=== PATIENT | male | born 1945 | race Caucasian/White ===

== ENCOUNTER 2017-08-01 19:28 | Observation (INO) | payer MEDICARE, OTHER, SELFPAY ==
[2017-08-01 19:29] VITALS: BP 160/83; PULSE 86; RESP 16; TEMP 37.7; O2SAT 98; BMI 36.8
[2017-08-01 19:42] VITALS: BMI 33.3
--- NOTE | 2017-08-01 19:45 | XR_ITS ---
XR chest portable HISTORY: ITS.REASON: CHEST PAIN ORDERING PHYSICIAN: Galdino Hickey MD PATIENT AGE: 71 years COMPARISON: 10/06/2015 FINDINGS: The cardiomediastinal silhouette and pulmonary vascularity are within normal limits. The lungs are clear without infiltrates, suspicious nodules, or pleural effusions. No acute bony abnormalities. Stable nodular opacity left midlung possibly related to granuloma. IMPRESSION: No acute finding
[2017-08-01 20:01] LABS: Basophils % 0.4 % (0.1-2.0); Eosinophils # 0.4 K/mm3 (0.0-0.4); Eosinophils % 3.7 % (0.1-12.0); Hematocrit 42.5 % (42.0-52.0); Hemoglobin 14.7 g/dL (14.1-18.0); Lymphocytes % 34.5 K/mm3 (10-50); Mean Corpuscular HGB Conc 34.6 g/dL (31.8-35.4); Mean Corpuscular Hemoglobin 30.1 pg (27.0-31.2); Mean Platelet Volume 7.7 fl (7.4-10.4); Monocytes # 0.8 K/mm3 (0.1-1.0); Monocytes % 6.5 % (1.7-9.3); Neutrophils # 6.4 K/mm3 (1.8-7.8); Neutrophils % 54.9 % (37.0-80.0); Platelet Count 237 K/mm3 (142-424); Red Blood Count 4.88 M/mm3 (4.60-6.20); Red Cell Distribution Width 13.3 % (11.5-17.5); White Blood Count 11.7 K/mm3 (4.8-10.8)
--- NOTE | 2017-08-01 20:01 | PC.NURSE ---
EKG DONE AT 192
--- NOTE | 2017-08-01 20:05 | HMH.EDCP ---
ED Disposition Clinical Impression: Renal insufficiency Chest pain Qualifiers: Chest pain type: precordial pain Qualified Code(s): R07.2 - Precordial pain Hypertension Qualifiers: Hypertension type: unspecified Qualified Code(s): I10 - Essential (primary) hypertension Disposition: Admitted as Observation Condition on Discharge: Good Referrals: Vivienne Payton MD [Primary Care Provider] - - Critical Care Critical Care Time: No Attestation: On , the high probability of a clinically significant, sudden or life threatening deterioration of the following system(s) required my full and direct attention, intervention and personal management. The time I documented below is in addition to time spent performing reported procedures but includes the following listed in this critical care notation. Medical Decision Making - Medical Records Medical records reviewed: Yes: I reviewed the patient's medical records. Vital Signs: 08/01/17 19:29 08/01/17 20:33 Temperature 99.8 F H Temperature Source Oral Pulse Rate [Brachial] 86 98 H Respiratory Rate 16 18 Blood Pressure [Right Arm] 160/83 159/69 Blood Pressure Mean [Right Arm] 108 99 Blood Pressure Source [Right Arm] Automatic Cuff Automatic Cuff Blood Pressure Position [Right Arm] Sitting Sitting 02 Sat by Pulse Oximetry 98 98 Oxygen Delivery Method Room Air Room Air - Lab Data Lab results reviewed: Yes: I reviewed the patient's lab results. Lab Results 08/01/17 19:50: WBC 11.7 H, RBC 4.88, Hgb 14.7, Hct 42.5, MCV 87.0, MCH 30.1, MCHC 34.6, RDW 13.3, Plt Count 237, MPV 7.7, Neut % (Auto) 54.9, Lymph % (Auto) 34.5, [place] % (Auto) 6.5, Eos % (Auto) 3.7, Baso % (Auto) 0.4, Neut # (Auto) 6.4, Lymph # (Auto) 4.0, [place] # (Auto) 0.8, Eos # (Auto) 0.4, Baso # (Auto) 0.0 08/01/17 19:50: Sodium 140, Potassium 3.7, Chloride 106, Carbon Dioxide 26, Anion Gap 11.7, BUN 19 H, Creatinine 1.45 H, Estimated Creat Clear 78, Estimated GFR 48 L, Est GFR ( Amer) 58 L, Glucose 122 H, Calcium 8.6, Total Bilirubin 0.3, AST 23, ALT 32, Alkaline Phosphatase 102, Total Creatine Kinase 189 H, CK-MB (CK-2) 2.0, CK-MB (CK-2) Rel Index 1.1, Troponin I < 0.02, Total Protein 7.8, Albumin 3.8, Globulin 4.0 H, Albumin/Globulin Ratio 1.0 L Result diagrams: 08/01/17 19:50 08/01/17 19:50 Orders (Tests/Meds): ED MEDICATIONS Generic Name Dose Route Start Last Admin Trade Name Freq PRN Reason Stop Dose Admin Sodium Chloride 10 ml 08/01/17 19:44 Saline Flush 10ml Syringe IV 08/31/17 19:43 NEEDED PRN Maintain IV Site Discontinued Medications Generic Name Dose Route Start Last Admin Trade Name Freq PRN Reason Stop Dose Admin Aspirin 324 mg 08/01/17 19:44 08/01/17 19:47 Aspirin 81mg Chewable Tablet PO 08/01/17 19:45 324 mg ONCE ONE Administration Nitroglycerin 1 gm 08/01/17 20:16 08/01/17 20:21 Nitroglycerin 1 Inch Oint Udp TD 08/01/17 20:17 1 gm ONCE ONE Administration ORDERS Category Date Time Status Chest XR -- portable [XR chest portable] Stat Exams 08/01/17 19:45 Taken EKG Request [ECG Request by /Liana] Stat Y 08/01/17 19:44 Ordered - Radiology Data #1 Image Reviewed: Yes I reviewed the patient's radiology results Preliminary Findings: Normal/NAD - ECG Data Tracing #1 I reviewed this ECG and interpreted as documented below: ECG initial impression date: 08/01/17 Ischemic changes: non-specific ST-T wave changes - Physician Consults Physician Consulted: charlee Reason -: Admission - [place] Inquiry Pt receiving controlled substance: No Chest Pain HPI - General Chief Complaint: Chest Pain Stated Complaint: chest pain Time Seen by Provider: 08/01/17 20:07 Mode of Arrival: Ambulatory Source of Information: Patient, Relative, Medical Record Limitations: No Limitations Description of Symptoms (Recalled from ER Triage Doc. by RN): pain in left arm at 11:30 today, chest pain and tightness 1830 - H
--- NOTE | 2017-08-01 20:09 | ED_ITS ---
ED Disposition Clinical Impression: Renal insufficiency Chest pain Qualifiers: Chest pain type: precordial pain Qualified Code(s): R07.2 - Precordial pain Hypertension Qualifiers: Hypertension type: unspecified Qualified Code(s): I10 - Essential (primary) hypertension Disposition: Admitted as Observation Condition on Discharge: Good Referrals: Vivienne Payton MD [Primary Care Provider] - - Critical Care Critical Care Time: No Attestation: On , the high probability of a clinically significant, sudden or life threatening deterioration of the following system(s) required my full and direct attention, intervention and personal management. The time I documented below is in addition to time spent performing reported procedures but includes the following listed in this critical care notation. Medical Decision Making - Medical Records Medical records reviewed: Yes: I reviewed the patient's medical records. Vital Signs: 08/01/17 19:29 08/01/17 20:33 Temperature 99.8 F H Temperature Source Oral Pulse Rate [Brachial] 86 98 H Respiratory Rate 16 18 Blood Pressure [Right Arm] 160/83 159/69 Blood Pressure Mean [Right Arm] 108 99 Blood Pressure Source [Right Arm] Automatic Cuff Automatic Cuff Blood Pressure Position [Right Arm] Sitting Sitting 02 Sat by Pulse Oximetry 98 98 Oxygen Delivery Method Room Air Room Air - Lab Data Lab results reviewed: Yes: I reviewed the patient's lab results. Lab Results 08/01/17 19:50: WBC 11.7 H, RBC 4.88, Hgb 14.7, Hct 42.5, MCV 87.0, MCH 30.1, MCHC 34.6, RDW 13.3, Plt Count 237, MPV 7.7, Neut % (Auto) 54.9, Lymph % (Auto) 34.5, [place] % (Auto) 6.5, Eos % (Auto) 3.7, Baso % (Auto) 0.4, Neut # (Auto) 6.4 , Lymph # (Auto) 4.0, [place] # (Auto) 0.8, Eos # (Auto) 0.4, Baso # (Auto) 0.0 08/01/17 19:50: Sodium 140, Potassium 3.7, Chloride 106, Carbon Dioxide 26, Anion Gap 11.7, BUN 19 H, Creatinine 1.45 H, Estimated Creat Clear 78, Estimated GFR 48 L, Est GFR ( Amer) 58 L, Glucose 122 H, Calcium 8.6, Total Bilirubin 0.3, AST 23, ALT 32, Alkaline Phosphatase 102, Total Creatine Kinase 189 H, CK-MB (CK-2) 2.0, CK-MB (CK-2) Rel Index 1.1, Troponin I < 0.02, Total Protein 7.8, Albumin 3.8, Globulin 4.0 H, Albumin/Globulin Ratio 1.0 L Result diagrams: 08/01/17 19:50 08/01/17 19:50 Orders (Tests/Meds): ED MEDICATIONS Generic Name Dose Route Start Last Admin Trade Name Freq PRN Reason Stop Dose Admin Sodium Chloride 10 ml 08/01/17 19:44 Saline Flush 10ml Syringe IV 08/31/17 19:43 NEEDED PRN Maintain IV Site Discontinued Medications Generic Name Dose Route Start Last Admin Trade Name Freq PRN Reason Stop Dose Admin Aspirin 324 mg 08/01/17 19:44 08/01/17 19:47 Aspirin 81mg Chewable Tablet PO 08/01/17 19:45 324 mg ONCE ONE Administration Nitroglycerin 1 gm 08/01/17 20:16 08/01/17 20:21 Nitroglycerin 1 Inch Oint Udp TD 08/01/17 20:17 1 gm ONCE ONE Administration ORDERS Category Date Time Status Chest XR -- portable [XR chest portable] Stat Exams 08/01/17 19:45 Taken EKG Request [ECG Request by /Liana] Stat Y 08/01/17 19:44 Ordered - Radiology Data #1 Image Reviewed: Yes I reviewed the patient's radiology results Preliminary Findings: Normal/NAD - ECG Da
[2017-08-01 20:30] LABS: Alanine Aminotransferase 32 U/L (12-78); Albumin Level 3.8 gm/dL (3.4-5.0); Alkaline Phosphatase 102 U/L (46-116); Anion Gap 11.7 mEq/L (5-15); Bilirubin,Total 0.3 mg/dL (0.2-1.0); Blood Urea Nitrogen 19 mg/dL (7-18); CKMB Relative Index 1.1 U/L (0-4.0); Calcium 8.6 mg/dL (8.5-10.1); Carbon Dioxide 26 mmol/L (21.0-32.0); Chloride 106 mmol/L (98-107); Creatine Kinase 189 U/L (38-174); Creatinine Clearance Estimated 78 mg/ml (0-300); Creatinine,Serum 1.45 mg/dL (0.70-1.30); Estimated Glomerular Filt Rate 48 ml/min (>60); GFR (African American) 58 ML/MIN (>60); Glucose 122 mg/dL (74-106); Sodium 140 mmol/L (136-145); Total Protein,Serum 7.8 gm/dL (6.4-8.2); Troponin I < 0.02 ng/ml (0.00-0.06)
[2017-08-01 20:33] VITALS: BP 159/69; PULSE 98; RESP 18; O2SAT 98
[2017-08-01 20:38] LABS: Aspartate Amino Transferase 23 U/L (15-37); Potassium 3.7 mmoL/L (3.5-5.1)
[2017-08-01 21:22] VITALS: BP 124/78; PULSE 79; RESP 20; O2SAT 97
[2017-08-01 21:27] VITALS: BMI 35.2
[2017-08-01 21:37] VITALS: BP 159/69; PULSE 82; RESP 16; O2SAT 97
[2017-08-01 22:10] VITALS: O2SAT 97; BMI 35.2
--- NOTE | 2017-08-02 | NM_ITS ---
History and Indications: Hypertension, hyperlipidemia, family history and chest pain. Procedure: Patient received a 0.4 mg of Lexiscan, resting heart rate was 78 bpm, resting blood pressure 169/88, with Lexiscan maximum heart rate achieved was 96 bpm which is less than 85% of the maximum predicted heart rate and a blood pressure was 164/82. With Lexiscan no symptoms recorded Electrocardiogram: Resting electrocardiogram showed sinus rhythm, with Lexiscan there is less than 1.[address] segment depression noted from the baseline EKG. The EKG portion of the Lexiscan Myoview is nondiagnostic. Cardiac stress and resting SPECT images: Cardiac stress and rest SPECT images were obtained using technetium 99 Myoview 10.3 mCi at rest and 30.1 mCi at stress, gated SPECT further analysis of segmental wall motion and calculation of the ejection fraction also done. Cardiac stress and rest SPECT images show uniform myocardial activity without any segmental perfusion abnormality computer derived ejection fraction is 62% with no obvious regional wall motion abnormality, right ventricle is normal size and contractility. Conclusion: 1. The EKG portion of the Lexiscan Myoview is nondiagnostic. 2. No obvious scintigraphic evidence of reversible ischemia seen. Irregularity ejection fraction is 62% with no obvious regional wall motion abnormality, right ventricle is normal size and contractility. 3. Normal Lexiscan Myoview study.
[2017-08-02 04:00] VITALS: BP 138/57; PULSE 74; RESP 18; TEMP 37.6; O2SAT 92
--- NOTE | 2017-08-02 07:26 | PC.NURSE ---
AT 0230 THIS MORNING PATIENT STATED HE HAD A VERY BAD HEADACHE, PATIENT RATED IT A 7 OUT OF 10 ON NUMERIC SCALE. HE ALSO STATED IT WAS GOING UP INTO HIS JAW. VS B/P- 139/63 P-71 R-18 02-95%. NO S/S OF DISTRESS NOTED. PATIENT WAS GIVEN NITROGLYCERIN PATCH IN THE ED, ONE TIME ORDER PER DR. LENNON. VS WERE STABLE, PATIENT DID NOT APPEAR TO BE SWEATY, WAS NOT SOA. CONSULTED ANN JAY R.N. AND ASKED IF I SHOULD TAKE THE NITRO PATCH OFF AND GIVE SOMETHING FOR PAIN. PATIENT WAS OFFERED TYLENOL AND REFUSED STATING HIS FROM TYLENOL TOXICITY. SO WAS GIVEN MORPHINE 4 MG IV. PATIENT STATED THE MORPHINE WORKED WELL EASING THE PAIN. NO S/S OF ADVERSE REACTIONS NOTED
--- NOTE | 2017-08-02 07:28 | CA_ITS ---
PROCEDURE: 2-D M-mode and color Doppler study INDICATIONS FOR THE TEST: Chest pain X COPD Heart Murmur Tobacco Smoking Palpitations Fatigue Syncope Edema HypertensionXDiabetes Mellitus Rheumatic Fever SOB AMARAL Obesity HyperlipidemiaX Family History HD Additional History TDS SECONDARY TO BODY HABITUS PATIENT INFORMATION HEIGHT: 72 WEIGHT:274 GENDER: Male B/P:140/80 2-D/M-MODE INTERPRETATION: 2-D MEASUREMENTS OBSERVED VALUES IN CMS Right Ventricular Dimension (RVDd) 2.1 Interventricular Septum (Thickness)(IVsd) 1.1 Left Ventricular Internal Dimensions(LVIDd) 5.2 Left Ventricular Posterior Wall (Thickness)(LVPWd) 1.0 Aortic Root 3.3 Aortic Cusp Separation 2.3 Left Atrial Dimensions (LAD) 4.1 2D 1. Technically difficult study because of the patient's factor and poor acoustic windows 2. Left atrium is mildly enlarged, left ventricle is normal size, there is mild concentric left ventricular hypertrophy, visually estimated ejection fraction 55% with no obvious regional wall motion abnormality. 3. The right atrium is mildly enlarged, right ventricle is normal size and contractility. 4. The aortic valve is minimally thickened and calcified. 5. The mitral and tricuspid valvular grossly normal. 6. No significant pericardial effusion noted DOPPLER INTERROGATION: Doppler interrogation of the aortic, mitral and tricuspid valvular presence of mild mitral and tricuspid regurgitation, tricuspid regurgitant jet velocity insufficient for calculation of the right ventricular systolic pressure, grade 1 diastolic dysfunction seen without tissue Doppler evidence of raised left atrial pressure. CONCLUSION: 1. Mild biatrial enlargement, normal left ventricular size, mild concentric left ventricular hypertrophy, visually estimated ejection fraction 55% with no obvious regional wall motion abnormality, grade 1 diastolic dysfunction seen without tissue Doppler evidence of raised left atrial pressure. 2. Thickened and calcified aortic valve without Doppler evidence of aortic stenosis or aortic insufficiency. 3. Mild mitral and tricuspid regurgitation. 4. No significant pericardial effusion noted.
[2017-08-02 07:51] VITALS: BP 147/73; PULSE 81; RESP 22; TEMP 36.8; O2SAT 96
--- NOTE | 2017-08-02 08:41 | HMH.HP ---
*Admission Date: 08/02/17 *Chief complaint: Chest pain *History of present illness: Mr. Wolfe is a 71-year-old male patient of the [facility] who was sitting in group therapy yesterday around 12:30 PM when he began having left arm pain. The pain began to radiate to his shoulder blade and up into his jaw. By 6:30 PM, he began having pain in the left side of his chest, therefore he presented to the emergency room. He was given a nitro patch and some morphine. The pain improved in his chest,but he still has some pain in his back and up into his jaw. He also has some numbness and tingling down his left arm. He got a severe headache from the nitro patch and it had to be removed. He was admitted and cardiology was consulted. [facility] History I have reviewed the patient's past medical history: Yes Medical History: Reports:: Deep Vein Thrombosis (NOVEMBER 1999), Hypertension, Pulmonary Embolism Denies:: Diabetes Mellitus Type 1, Diabetes Mellitus Type 2, Hyperlipidemia, MRSA, Myocardial Infarction, Transient Ischemic Attacks (TIA) Other Medical History: Reports: Arthritis, Cataracts (SURGERY ON BOTH EYES) Laterality Cases: Bilateral: Cataract Other Surgeries: Yes: Hernia Repair, Other Amputation: No Fractures: No - *Social History Educational Level: Completed College Smoking Status: Former smoker Tobacco Type: cigarettes # Packs/Day (cigarettes): 1 #Yrs smoked (if former smoker): 50 Smoking End Date: 08/2007 Alcohol Intake: former Occupational Status: retired Housing: house - Psychiatric History Expresses thoughts of harming self/others: None Suicide Plan Description: No Plan *Family Hx:: Cancer, Stroke Review of Systems - Constitutional Denies fatigue, Denies lack of energy, Denies weakness - Eyes Denies blurry vision, Denies change in vision - ENT Reports headache(s), Denies nasal congestion, Denies sore throat - *Cardiovascular Reports chest pain, Denies shortness of breath, Denies irregular heart rhythm - *Respiratory Denies cough, Denies shortness of breath - *Gastrointestinal Denies abdominal pain, Denies change in bowel habits, Denies nausea, Denies vomiting - *Genitourinary Denies difficulty urinating, Denies painful urination - *Musculoskeletal Reports joint pain (left shoulder), Reports radiating pain into limb (left shoulder) - *Neurologic Reports burning sensations (left shoulder), Reports tingling (left shoulder), Denies seizure-like activity, Denies memory loss Meds Home Medications Medication Instructions Recorded Confirmed Type Amlodipine Besylate [Norvasc 2.5mg 0 mg PO DAILY 08/01/17 08/01/17 History tablet] Atorvastatin Calcium [Atorvastatin 20 mg PO DAILY 08/01/17 08/01/17 History 20mg Tab] Fluoxetine HCl [Prozac] 20 mg PO DAILY 08/01/17 08/01/17 History Gabapentin [Neurontin 800mg Tab] 900 mg PO BID 08/01/17 08/01/17 History Lisinopril [Lisinopril 5mg Tablet] 5 mg PO DAILY 08/01/17 08/01/17 History hydroCHLOROthiazide [HCTZ 12.5mg 6.25 mg PO DAILY 08/01/17 08/01/17 History cap] Allergies Allergy/AdvReac Type Severity Reaction Status Date / Time No Known Allergies Allergy Verified 08/01/17 19:43 Exam Vital signs and Labs for Last 24 Hours: Temp Pulse Resp BP Pulse Ox 98.3 F 81 22 147/73 96 08/02/17 07:51 08/02/17 07:51 08/02/17 07:51 08/02/17 07:51 08/02/17 07:51 no acute distress - *Routine HEENT Exam Head: Present: normocephalic, atraumatic Eye: Present: EOMI, PERRL ENT: Present: mucous membranes moist - *Routine Neck Exam Present: supple, full ROM. Absent: carotid bruit - *Routine Respiratory Exam Present: CTA bilaterally - *Routine Cardiovascular Exam Present: RRR - *Routine Abdominal Exam Present: soft, normoactive bowel sounds. Absent: tenderness - *Routine Extremities Exam Absent: edema - *Routine Skin Exam Present: intact - *Routine Neurological Exam Present: alert, oriented X3 H&P: Result - Labs Labs:
--- NOTE | 2017-08-02 08:45 | P.HP_ITS ---
*Admission Date: 08/02/17 *Chief complaint: Chest pain *History of present illness: Mr. Wolfe is a 71-year-old male patient of the [facility] who was sitting in group therapy yesterday around 12:30 PM when he began having left arm pain. The pain began to radiate to his shoulder blade and up into his jaw. By 6:30 PM, he began having pain in the left side of his chest, therefore he presented to the emergency room. He was given a nitro patch and some morphine. The pain improved in his chest,but he still has some pain in his back and up into his jaw. He also has some numbness and tingling down his left arm. He got a severe headache from the nitro patch and it had to be removed. He was admitted and cardiology was consulted. [facility] History I have reviewed the patient's past medical history: Yes Medical History: Reports:: Deep Vein Thrombosis (NOVEMBER 1999), Hypertension, Pulmonary Embolism Denies:: Diabetes Mellitus Type 1, Diabetes Mellitus Type 2, Hyperlipidemia, MRSA, Myocardial Infarction, Transient Ischemic Attacks (TIA) Other Medical History: Reports: Arthritis, Cataracts (SURGERY ON BOTH EYES) Laterality Cases: Bilateral: Cataract Other Surgeries: Yes: Hernia Repair, Other Amputation: No Fractures: No - *Social History Educational Level: Completed College Smoking Status: Former smoker Tobacco Type: cigarettes # Packs/Day (cigarettes): 1 #Yrs smoked (if former smoker): 50 Smoking End Date: 08/2007 Alcohol Intake: former Occupational Status: retired Housing: house - Psychiatric History Expresses thoughts of harming self/others: None Suicide Plan Description: No Plan *Family Hx:: Cancer, Stroke Review of Systems - Constitutional Denies fatigue, Denies lack of energy, Denies weakness - Eyes Denies blurry vision, Denies change in vision - ENT Reports headache(s), Denies nasal congestion, Denies sore throat - *Cardiovascular Reports chest pain, Denies shortness of breath, Denies irregular heart rhythm - *Respiratory Denies cough, Denies shortness of breath - *Gastrointestinal Denies abdominal pain, Denies change in bowel habits, Denies nausea, Denies vomiting - *Genitourinary Denies difficulty urinating, Denies painful urination - *Musculoskeletal Reports joint pain (left shoulder), Reports radiating pain into limb (left shoulder) - *Neurologic Reports burning sensations (left shoulder), Reports tingling (left shoulder), Denies seizure-like activity, Denies memory loss Meds Home Medications Medication Instructions Recorded Confirmed Type Amlodipine Besylate [Norvasc 2.5mg 0 mg PO DAILY 08/01/17 08/01/17 History tablet] Atorvastatin Calcium [Atorvastatin 20 mg PO DAILY 08/01/17 08/01/17 History 20mg Tab] Fluoxetine HCl [Prozac] 20 mg PO DAILY 08/01/17 08/01/17 History Gabapentin [Neurontin 800mg Tab] 900 mg PO BID 08/01/17 08/01/17 History Lisinopril [Lisinopril 5mg Tablet] 5 mg PO DAILY 08/01/17 08/01/17 History hydroCHLOROthiazide [HCTZ 12.5mg 6.25 mg PO DAILY 08/01/17 08/01/17 History cap] Allergies Allergy/AdvReac Type Severity Reaction Status Date / Time No Known Allergies Allergy Verified 08/01/17 19:43 Exam Vital signs and Labs for Last 24 Hours: Temp Pulse Resp BP Pulse Ox 98.3 F 81 22 147/73 96 08/02/17 07:51 08/02/17 07:51 08/02/17 07:51 08/02/17 07:51 08/02/17 07:51 no acute distress - *Routine HEENT
--- NOTE | 2017-08-02 10:06 | P.CONPHA_ITS ---
[facility] Pharm[facility] VTE Monitoring - Patient Demographics Admission date: 08/01/17 Report Date: 08/02/17 Time: 10:05 Allergies/Adverse Reactions: No Known Allergies Allergy (Verified 08/01/17 19:43) Height: 1.88 m Weight: 124.454 kg Patient Problems: Current Active Problems Chest pain (Acute) Renal insufficiency (Acute) Hypertension (Chronic) - VTE Risk Labs: VTE Related Lab Results Hgb 14.7 g/dL (14.1-18.0) 08/01/17 19:50 Hct 42.5 % (42.0-52.0) 08/01/17 19:50 Plt Count 237 K/mm3 (142-424) 08/01/17 19:50 BUN 19 mg/dL (7-18) H 08/01/17 19:50 Creatinine 1.45 mg/dL (0.70-1.30) H 08/01/17 19:50 Estimated Creat Clear 78 mg/ml (0-300) 08/01/17 19:50 VTE Score: 4 VTE Risk Level: Low Risk - Prophylaxis VTE Prophylaxis Ordered?: Yes Types of VTE Prophylaxis: TEDS Knee High Location of Applied Device: Bilateral Lower Extremeties
[2017-08-02 10:09] LABS: Anion Gap 8.2 mEq/L (5-15); Blood Urea Nitrogen 16 mg/dL (7-18); CKMB Relative Index 0.8 U/L (0-4.0); Carbon Dioxide 30 mmol/L (21.0-32.0); Chloride 107 mmol/L (98-107); Creatine Kinase 160 U/L (38-174); Creatine Kinase MB 1.2 mg/ml (0.0-3.6); Creatinine Clearance Estimated 109 mg/ml (0-300); Creatinine,Serum 1.06 mg/dL (0.70-1.30); Estimated Glomerular Filt Rate > 60 ml/min (>60); GFR (African American) > 60 ML/MIN (>60); Glucose 107 mg/dL (74-106); Potassium 4.2 mmoL/L (3.5-5.1); Sodium 141 mmol/L (136-145); Troponin I < 0.02 ng/ml (0.00-0.06)
[2017-08-02 10:17] LABS: Basophils % 0.4 % (0.1-2.0); Eosinophils # 0.4 K/mm3 (0.0-0.4); Eosinophils % 3.7 % (0.1-12.0); Hematocrit 39.6 % (42.0-52.0); Lymphocytes % 31.4 K/mm3 (10-50); Mean Corpuscular HGB Conc 32.7 g/dL (31.8-35.4); Mean Corpuscular Volume 88.6 fl (80-94); Monocytes # 0.7 K/mm3 (0.1-1.0); Monocytes % 6.9 % (1.7-9.3); Neutrophils # 5.4 K/mm3 (1.8-7.8); Neutrophils % 57.6 % (37.0-80.0); Platelet Count 205 K/mm3 (142-424); Red Blood Count 4.47 M/mm3 (4.60-6.20); Red Cell Distribution Width 13.3 % (11.5-17.5); White Blood Count 9.5 K/mm3 (4.8-10.8)
[2017-08-02 10:20] LABS: Hemoglobin 12.9 g/dL (14.1-18.0)
--- NOTE | 2017-08-02 11:19 | HMH.CARDCON2 ---
History of Present Illness Consult date: 08/02/17 Requesting physician: Froylan Alaniz Consult reason: chest pain Chief complaint: Shoulder, neck and chest pain History of present illness: 70 yo WM admitted for chest pain. Pt relates driving back from [place] when he developed pain in the left scapular area that persisted with varying intensity and eventually included left shoulder, left jaw and left chest pain. The symptoms were unchanged by movement, breathing or eating/drinking. He denies any nausea, vomiting or diaphoresis. After 6 hrs he decided to come to the ER for further evaluation. Initial EKG is sinus and without acute changes. Troponins have returned normal. The patient relates the NTG paste did give some relief but not resolution. He has no chest pain this AM and the NTG paste was removed due to Headache. Cardiology consulted for further evaluation and recommendation. Review of Systems - Constitutional Reports headache(s), Denies fever(s) - *Cardiovascular Reports chest pain, Denies shortness of breath with activity - *Respiratory Reports shortness of breath with activity - *Musculoskeletal Reports joint pain - *Neurologic Reports burning sensations (left shoulder), Reports headache(s), Reports tingling (left shoulder), Denies seizure-like activity, Denies memory loss, Denies weakness [facility] History Medical History: Reports:: Deep Vein Thrombosis (NOVEMBER 1999), Hypertension, Pulmonary Embolism Denies:: Diabetes Mellitus Type 1, Diabetes Mellitus Type 2, Hyperlipidemia, MRSA, Myocardial Infarction, Transient Ischemic Attacks (TIA) Other Medical History: Reports: Arthritis, Cataracts (SURGERY ON BOTH EYES) Comment: Pulmonary embolism, 1999, treated with anticoagulation for 5 years. Unknown etiology. Patient was a smoker at the time. Laterality Cases: Bilateral: Cataract Other Surgeries: Yes: Hernia Repair, Other Amputation: No Fractures: No - *Social History Educational Level: Completed College Smoking Status: Former smoker Tobacco Type: cigarettes # Packs/Day (cigarettes): 1 #Yrs smoked (if former smoker): 50 Smoking End Date: 08/2007 Alcohol Intake: former Occupational Status: retired Housing: house - Psychiatric History Expresses thoughts of harming self/others: None Suicide Plan Description: No Plan *Family Hx:: Cancer, Stroke Meds Home Medications Medication Instructions Recorded Confirmed Type Atorvastatin Calcium [Atorvastatin 20 mg PO DAILY 08/01/17 08/01/17 History 20mg Tab] Fluoxetine HCl [Prozac] 20 mg PO DAILY 08/01/17 08/01/17 History Gabapentin [Neurontin 800mg Tab] 900 mg PO BID 08/01/17 08/01/17 History hydroCHLOROthiazide [HCTZ 12.5mg 6.25 mg PO DAILY 08/01/17 08/01/17 History cap] Amlodipine Besylate [Norvasc 10mg 10 mg PO DAILY 08/02/17 08/02/17 History tablet] Lisinopril [Lisinopril 40mg Tablet] 40 mg PO DAILY 08/02/17 08/02/17 History Allergies Allergy/AdvReac Type Severity Reaction Status Date / Time No Known Allergies Allergy Verified 08/01/17 19:43 Exam Vital signs and Labs for Last 24 Hours: Temp Pulse Resp BP Pulse Ox 98.3 F 81 22 147/73 96 08/02/17 07:51 08/02/17 07:51 08/02/17 07:51 08/02/17 07:51 08/02/17 07:51 Short CBC 08/02/17 Range/Units 09:15 WBC 9.5 (4.8-10.8) K/mm3 Hgb 12.9 L D (14.1-18.0) g/dL Hct 39.6 L (42.0-52.0) % Plt Count 205 (142-424) K/mm3 BMP 08/02/17 09:15 Sodium 141 Potassium 4.2 Chloride 107 Carbon Dioxide 30 BUN 16 Creatinine 1.06 D Glucose 107 H Cardiac Enzymes 08/02/17 Range/Units 09:15 Total Creatine Kinase 160 (38-174) U/L CK-MB (CK-2) 1.2 D (0.0-3.6) mg/ml Troponin I < 0.02 (0.00-0.06) ng/ml - *Routine Neck Exam Present: carotid bruit Comments: Bilateral carotid bruits, likely radiation murmur from aortic sclerosis per - *Routine Respiratory Exam Present: CTA bilaterally - *Routine Cardiovascular Exam Comments
--- NOTE | 2017-08-02 11:25 | P.CONS_ITS ---
History of Present Illness Consult date: 08/02/17 Requesting physician: Froylan Alaniz Consult reason: chest pain Chief complaint: Shoulder, neck and chest pain History of present illness: 70 yo WM admitted for chest pain. Pt relates driving back from [place] when he developed pain in the left scapular area that persisted with varying intensity and eventually included left shoulder, left jaw and left chest pain. The symptoms were unchanged by movement, breathing or eating/drinking. He denies any nausea, vomiting or diaphoresis. After 6 hrs he decided to come to the ER for further evaluation. Initial EKG is sinus and without acute changes. Troponins have returned normal. The patient relates the NTG paste did give some relief but not resolution. He has no chest pain this AM and the NTG paste was removed due to Headache. Cardiology consulted for further evaluation and recommendation. Review of Systems - Constitutional Reports headache(s), Denies fever(s) - *Cardiovascular Reports chest pain, Denies shortness of breath with activity - *Respiratory Reports shortness of breath with activity - *Musculoskeletal Reports joint pain - *Neurologic Reports burning sensations (left shoulder), Reports headache(s), Reports tingling (left shoulder), Denies seizure-like activity, Denies memory loss, Denies weakness [facility] History Medical History: Reports:: Deep Vein Thrombosis (NOVEMBER 1999), Hypertension, Pulmonary Embolism Denies:: Diabetes Mellitus Type 1, Diabetes Mellitus Type 2, Hyperlipidemia, MRSA, Myocardial Infarction, Transient Ischemic Attacks (TIA) Other Medical History: Reports: Arthritis, Cataracts (SURGERY ON BOTH EYES) Comment: Pulmonary embolism, 1999, treated with anticoagulation for 5 years. Unknown etiology. Patient was a smoker at the time. Laterality Cases: Bilateral: Cataract Other Surgeries: Yes: Hernia Repair, Other Amputation: No Fractures: No - *Social History Educational Level: Completed College Smoking Status: Former smoker Tobacco Type: cigarettes # Packs/Day (cigarettes): 1 #Yrs smoked (if former smoker): 50 Smoking End Date: 08/2007 Alcohol Intake: former Occupational Status: retired Housing: house - Psychiatric History Expresses thoughts of harming self/others: None Suicide Plan Description: No Plan *Family Hx:: Cancer, Stroke Meds Home Medications Medication Instructions Recorded Confirmed Type Atorvastatin Calcium [Atorvastatin 20 mg PO DAILY 08/01/17 08/01/17 History 20mg Tab] Fluoxetine HCl [Prozac] 20 mg PO DAILY 08/01/17 08/01/17 History Gabapentin [Neurontin 800mg Tab] 900 mg PO BID 08/01/17 08/01/17 History hydroCHLOROthiazide [HCTZ 12.5mg 6.25 mg PO DAILY 08/01/17 08/01/17 History cap] Amlodipine Besylate [Norvasc 10mg 10 mg PO DAILY 08/02/17 08/02/17 History tablet] Lisinopril [Lisinopril 40mg Tablet] 40 mg PO DAILY 08/02/17 08/02/17 History Allergies Allergy/AdvReac Type Severity Reaction Status Date / Time No Known Allergies Allergy Verified 08/01/17 19:43 Exam Vital signs and Labs for Last 24 Hours: Temp Pulse Resp BP Pulse Ox 98.3 F 81 22 147/73 96 08/02/17 07:51 08/02/17 07:51 08/02/17 07:51 08/02/17 07:51 08/02/17 07:51 Short CBC 08/02/17 Range/Units 09:15 WBC 9.5 (4.8-10.8) K/mm3 Hgb 12.9 L D (14.1-18.0) g/dL Hct 39.6 L (42.0-52.0) %
--- NOTE | 2017-08-02 11:25 | CARE MANAGER ---
Patient was admitted OBS with a diagnosis of chest pain. His treatment plan will include investigative studies, cariology consult. CM staff will follow and assist as needed.
[2017-08-02 11:41] VITALS: BP 137/71; PULSE 73; RESP 20; TEMP 36.9; O2SAT 96
[2017-08-02 12:00] VITALS: PULSE 74
[2017-08-02 16:00] VITALS: BP 164/70; PULSE 80; PULSE 82; RESP 22; TEMP 36.8; O2SAT 96
--- NOTE | 2017-08-02 17:05 | HMH.ACPN ---
Internal Medicine - PN: Subj *Date: 08/02/17 *Time: 17:06 Interval history: Patient has done well today, he has not had chest pain, just completed a Lexiscan cardiac stress test, preliminary report is of a normal study. Patient wants to be discharged home. Exam Vital signs and Labs for Last 24 Hours: Temp Pulse Resp BP Pulse Ox 98.2 F 82 22 164/70 96 08/02/17 16:00 08/02/17 16:00 08/02/17 16:00 08/02/17 16:00 08/02/17 16:00 Short CBC 08/02/17 Range/Units 09:15 WBC 9.5 (4.8-10.8) K/mm3 Hgb 12.9 L D (14.1-18.0) g/dL Hct 39.6 L (42.0-52.0) % Plt Count 205 (142-424) K/mm3 BMP 08/02/17 09:15 Sodium 141 Potassium 4.2 Chloride 107 Carbon Dioxide 30 BUN 16 Creatinine 1.06 D Glucose 107 H Cardiac Enzymes 08/02/17 Range/Units 09:15 Total Creatine Kinase 160 (38-174) U/L CK-MB (CK-2) 1.2 D (0.0-3.6) mg/ml Troponin I < 0.02 (0.00-0.06) ng/ml Assessment and Plan (1) Chest pain Current visit: Yes Status: Resolved Qualifiers: Chest pain type: precordial pain Qualified Code(s): R07.2 - Precordial pain Category: Medical Code(s): R07.9 - Chest pain, unspecified Normal stress test, plan f/u with Primary MD at [facility] next week. (2) Renal insufficiency Current visit: Yes Status: Acute Category: Medical Code(s): N28.9 - Disorder of kidney and ureter, unspecified Improved with hydration. (3) Hypertension Current visit: Yes Status: Chronic Qualifiers: Hypertension type: unspecified Qualified Code(s): I10 - Essential (primary) hypertension Category: Medical Code(s): I10 - Essential (primary) hypertension - Assessment and plan all Dx Assessment and Plan for all problems:: Discharge home today, resume/continue home meds, no new prescriptions given at time of discharge.
--- NOTE | 2017-08-02 17:09 | P.PN_ITS ---
Internal Medicine - PN: Subj *Date: 08/02/17 *Time: 17:06 Interval history: Patient has done well today, he has not had chest pain, just completed a Lexiscan cardiac stress test, preliminary report is of a normal study. Patient wants to be discharged home. Exam Vital signs and Labs for Last 24 Hours: Temp Pulse Resp BP Pulse Ox 98.2 F 82 22 164/70 96 08/02/17 16:00 08/02/17 16:00 08/02/17 16:00 08/02/17 16:00 08/02/17 16:00 Short CBC 08/02/17 Range/Units 09:15 WBC 9.5 (4.8-10.8) K/mm3 Hgb 12.9 L D (14.1-18.0) g/dL Hct 39.6 L (42.0-52.0) % Plt Count 205 (142-424) K/mm3 BMP 08/02/17 09:15 Sodium 141 Potassium 4.2 Chloride 107 Carbon Dioxide 30 BUN 16 Creatinine 1.06 D Glucose 107 H Cardiac Enzymes 08/02/17 Range/Units 09:15 Total Creatine Kinase 160 (38-174) U/L CK-MB (CK-2) 1.2 D (0.0-3.6) mg/ml Troponin I < 0.02 (0.00-0.06) ng/ml Assessment and Plan (1) Chest pain Current visit: Yes Status: Resolved Qualifiers: Chest pain type: precordial pain Qualified Code(s): R07.2 - Precordial pain Category: Medical Code(s): R07.9 - Chest pain, unspecified Normal stress test, plan f/u with Primary MD at [place] next week. (2) Renal insufficiency Current visit: Yes Status: Acute Category: Medical Code(s): N28.9 - Disorder of kidney and ureter, unspecified Improved with hydration. (3) Hypertension Current visit: Yes Status: Chronic Qualifiers: Hypertension type: unspecified Qualified Code(s): I10 - Essential (primary ) hypertension Category: Medical Code(s): I10 - Essential (primary) hypertension - Assessment and plan all Dx Assessment and Plan for all problems:: Discharge home today, resume/continue home meds, no new prescriptions given at time of discharge.
--- NOTE | 2017-08-06 21:23 | HMH.DCSUM ---
General - General Admission date: 08/01/17 Discharge date: 08/02/17 HPI HPI: Mr. Wolfe is a 71-year-old male patient of the [facility] who was sitting in group therapy yesterday around 12:30 PM when he began having left arm pain. The pain began to radiate to his shoulder blade and up into his jaw. By 6:30 PM, he began having pain in the left side of his chest, therefore he presented to the emergency room. He was given a nitro patch and some morphine. The pain improved in his chest,but he still has some pain in his back and up into his jaw. He also has some numbness and tingling down his left arm. He got a severe headache from the nitro patch and it had to be removed. He was admitted and cardiology was consulted. Objective Vital signs: Temp Pulse Resp BP Pulse Ox 98.2 F 82 22 164/70 96 08/02/17 16:00 08/02/17 16:00 08/02/17 16:00 08/02/17 16:00 08/02/17 16:00 Narrative: Gen: no acute distress - *Routine HEENT Exam Head: Present: normocephalic, atraumatic Eye: Present: EOMI, PERRL ENT: Present: mucous membranes moist - *Routine Neck Exam Present: supple, full ROM. Absent: carotid bruit - *Routine Respiratory Exam Present: CTA bilaterally - *Routine Cardiovascular Exam Present: RRR - *Routine Abdominal Exam Present: soft, normoactive bowel sounds. Absent: tenderness - *Routine Extremities Exam Absent: edema - *Routine Skin Exam Present: intact - *Routine Neurological Exam Present: alert, oriented X3 Hospital Course Hospital Course: Cardiology was consulted. With normal troponins, normal EKG, and echocardiogram showing normal LV function, they wanted to proceed with a Lexiscan Myoview. The patient underwent the stress test and it was normal. He was stable to be discharged home and will f/u with his physician at the [facility]. DS: Diagnosis - Discharge Diagnosis (1) Chest pain Status: Resolved (2) Hypertension Status: Chronic (3) Renal insufficiency Status: Acute Meds Home Medications Medication Instructions Recorded Confirmed Type Atorvastatin Calcium [Atorvastatin 20 mg PO DAILY 08/01/17 08/01/17 History 20mg Tab] Fluoxetine HCl [Prozac] 20 mg PO DAILY 08/01/17 08/01/17 History Gabapentin [Neurontin 800mg Tab] 900 mg PO BID 08/01/17 08/01/17 History hydroCHLOROthiazide [HCTZ 12.5mg 6.25 mg PO DAILY 08/01/17 08/01/17 History capsule] Amlodipine Besylate [Norvasc 10mg 10 mg PO DAILY 08/02/17 08/02/17 History tablet] Lisinopril [Lisinopril 40mg Tablet] 40 mg PO DAILY 08/02/17 08/02/17 History Allergies Allergy/AdvReac Type Severity Reaction Status Date / Time No Known Allergies Allergy Verified 08/01/17 19:43 Disposition Disposition: Home, Self-Care
== END 2017-08-02 18:47 | disposition home or self-care (01) ==
LOC: ER 21:06 → 2ND 21:15
PROVIDERS: Admitting Provider Family Medicine; Emergency Provider Emergency Medicine; Family Provider Nurse Practitioner Family; PCP Family Medicine; Visit Provider Family Medicine
DX: R07.2 Precordial pain; I10 Essential (primary) hypertension
CPT/HCPCS: 36415; 71045; 78452; 80048; 80053; 82550; 82553; 84484; 85025; 93005; 93017; 93041; 93306; 99283; 99284; G0378

== ENCOUNTER 2017-10-13 10:12 | Day surgery (SDC) | payer MEDICARE, OTHER, SELFPAY ==
[2017-10-13] VITALS (14 sets, daily range): BP systolic 105–176; BP diastolic 64–92; PULSE 58–92; RESP 16–24; TEMP 36.7–36.9; O2SAT 94–99; BMI 35.9
--- NOTE | 2017-10-13 | CT_ITS ---
CT angio chest COMPARISON: PA and lateral chest same date HISTORY: Left-sided chest pain, elevated d-dimer TECHNIQUE: Multiaxial scans obtained from the thoracic inlet the hemidiaphragms after rapid injection of IV contrast. Sagittal coronal reformats were evaluated as well. FINDINGS: The lung head are mildly hyperexpanded. There is excellent vascular opacification and there is no CT evidence of pulmonary emboli. There is no pneumonic infiltrate and is no pleural fluid. There is mild aortic tortuosity no cardiomegaly. There is no evidence of aortic dissection. There are moderate multilevel degenerative changes of the mid and lower thoracic spine. IMPRESSION: Borderline emphysematous changes, no CT evidence of pulmonary emboli or other acute chest pathology
--- NOTE | 2017-10-13 | IR_ITS ---
CARDIAC CATHETERIZATION DATE OF CATHETERIZATION:10/13/2017 2:07 PM PROCEDURES: 1. Left heart catheterization 2. Left ventriculogram 3. Selective coronary angiogram INDICATION FOR TEST: 1. Unstable angina Clinical history: 71-year-old gentleman presents to the emergency department 4 hours of continuous chest pain relieved by nitroglycerin. This is patient's second recent admission with chest pain. Because of his prolonged chest pain and associated risk factors it was decided to bring patient to the [facility] for definitive diagnosis Informed consent was obtained prior to the procedure. COMPLICATIONS: None ESTIMATED BLOOD LOSS: Less than 10 ml. TECHNIQUE: One percent lidocaine used to anesthetize the right anterior aspect of the wrist. The right radial artery was accessed via the Seldinger technique. A 6 Kinyarwanda sheath was placed in the right radial artery. 2.5 mg of verapamil, 800 mcg of nitroglycerin and 5000 U Heparin were given through the arterial sheath. The trap catheter was also used to perform left heart catheterization and left ventriculography. At the end of the procedure the patient was transferred to the post-op holding area in stable condition for arterial sheath removal. ANGIOGRAPHIC RESULTS: 1. The left main artery normal 2. The left anterior descending artery has mild proximal and mid vessel 10% stenoses 3. The ramus intermedius is a large vessel and normal 4. The circumflex artery is dominant and has proximal to mid vessel 20% nonflow limiting stenoses 5. The right coronary artery is nondominant and has proximal 30% mid vessel 30% stenoses 6. The DANGELO ventriculogram reveals normal 65% 7. The left ventricular end-diastolic pressure mildly elevated at 20 25 mmHg IMPRESSION: 1. Mild nonflow limiting coronary artery disease 2. Normal ejection fraction 3. Mildly elevated LVEDP PLAN: 1. Evaluation of noncardiac symptomatology 2. Risk factor modification
--- NOTE | 2017-10-13 10:21 | XR_ITS ---
XR chest 2V COMPARISON: PA and lateral chest 10/06/2015 HISTORY: Chest pain TECHNIQUE: PA and lateral chest FINDINGS: The lung head are mildly hyperexpanded but show no infiltrate. The cardiac silhouette and vascularity are normal and the costophrenic angles are clear. There are mild multilevel degenerative changes of the midthoracic spine. IMPRESSION: Borderline COPD no acute chest pathology noted
--- NOTE | 2017-10-13 10:22 | PC.NURSE ---
pt takes 325mg of asa. asks dr reagan if he would like me to give pt asa. md to assess pt and give further orders.
--- NOTE | 2017-10-13 10:49 | HMH.EDCP ---
ED Disposition Clinical Impression: Unstable angina, CAD (coronary artery disease), Hypertension Disposition: Still a Patient Condition on Discharge: Fair Referrals: Froylan Alaniz MD [Primary Care Provider] - - Critical Care Critical Care Time: No Attestation: On 10/13/17, the high probability of a clinically significant, sudden or life threatening deterioration of the following system(s) required my full and direct attention, intervention and personal management. The time I documented below is in addition to time spent performing reported procedures but includes the following listed in this critical care notation. Medical Decision Making - Medical Records Medical records reviewed: Yes: I reviewed the patient's medical records. - Lamont Inquiry Pt receiving controlled substance: No Lamont was queried for this patient: No Vital Signs: 10/13/17 10:12 Temperature 98.4 F Temperature Source Oral Pulse Rate [Right Radial] 75 Respiratory Rate 24 02 Sat by Pulse Oximetry 95 Oxygen Delivery Method Room Air - Lab Data Lab Results 10/13/17 10:45: WBC 10.2, RBC 4.91, Hgb 14.3, Hct 43.3, MCV 88.1, MCH 29.2, MCHC 33.1, RDW 13.1, Plt Count 194, MPV 8.0, Neut % (Auto) 65.3, Lymph % (Auto) 25.9, [place] % (Auto) 6.5, Eos % (Auto) 2.1, Baso % (Auto) 0.2, Neut # (Auto) 6.7, Lymph # (Auto) 2.7, [place] # (Auto) 0.7, Eos # (Auto) 0.2, Baso # (Auto) 0.0 10/13/17 10:45: Sodium 141, Potassium 3.8, Chloride 103, Carbon Dioxide 29, Anion Gap 12.8, BUN 20 H, Creatinine 1.08, Estimated Creat Clear 109, Estimated GFR 67, Est GFR ( Amer) 81, Glucose 102, Calcium 9.0, Total Bilirubin 0.4, AST 20, ALT 37, Alkaline Phosphatase 94, Total Creatine Kinase 124, CK-MB (CK-2) 2.1 D, CK-MB (CK-2) Rel Index 1.7, Troponin I < 0.02, Total Protein 8.1, Albumin 3.8, Globulin 4.3 H, Albumin/Globulin Ratio 0.9 L 10/13/17 10:45: D-Dimer 1650 H* 10/13/17 10:45: B-Natriuretic Peptide 22 Result diagrams: 10/13/17 10:45 10/13/17 10:45 Orders (Tests/Meds): ED MEDICATIONS Generic Name Dose Route Start Last Admin Trade Name Freq PRN Reason Stop Dose Admin Nitroglycerin 0.5 gm 10/13/17 10:45 10/13/17 10:48 Nitroglycerin 1 Inch Oint Udp TD 11/12/17 10:44 0.5 gm Q6H KIANA Administration Discontinued Medications Generic Name Dose Route Start Last Admin Trade Name Freq PRN Reason Stop Dose Admin Aspirin 325 mg 10/13/17 10:51 10/13/17 10:52 Aspirin Ec 325mg Tablet PO 10/13/17 10:52 325 mg ONCE ONE Administration Iopamidol 75 ml 10/13/17 13:20 10/13/17 13:21 [id number]; 75ml Vial IV 10/13/17 13:21 75 ml ONCE ONE Administration Sodium Chloride 10 ml 10/13/17 13:20 10/13/17 13:21 Rad-Saline Flush 10ml Syringe IV 10/13/17 13:21 10 ml ONCE ONE Administration Sodium Chloride 50 ml 10/13/17 13:20 10/13/17 13:21 Rad-Ns 50ml Vial IV 10/13/17 13:21 50 ml ONCE ONE Administration ORDERS Category Date Time Status CT chest w/PE protocol request [CT Req chest with Cat Scan 10/13/17 11:28 Taken PE protocol] Stat - Radiology Data #1 Image(s): Chest Image Reviewed: Yes I have reviewed radiologist's interpretation Preliminary Findings: Abnormal IMPRESSION: Borderline COPD no acute chest pathology noted - ECG Data Tracing #1 Normal sinus rhythm 76/min baseline artifact no acute findings. ECG initial impression date: 10/13/17 ECG initial impression time: 10:53 Medical Decision Narrative: Mr. Wolfe became chest pain-free after the Nitropaste. The patient did have elevated d-dimer and I order CT chest that was negative for pulmonary embolus.. 1220 I called fuel technician Dr. Byers who advised for cardiac catheterization, spoke with Mr. Wolfe who said that the sooner the better. The patient was taken to the cardiac to the Store Operations [facility]ist by the Store Operations Specialist staff and hemodynamically stable condition. Mr. Wolfe is a and he was offered to
--- NOTE | 2017-10-13 10:52 | ED_ITS ---
ED Disposition Clinical Impression: Unstable angina, CAD (coronary artery disease), Hypertension Disposition: Still a Patient Condition on Discharge: Fair Referrals: Froylan Alaniz MD [Primary Care Provider] - - Critical Care Critical Care Time: No Attestation: On 10/13/17, the high probability of a clinically significant, sudden or life threatening deterioration of the following system(s) required my full and direct attention, intervention and personal management. The time I documented below is in addition to time spent performing reported procedures but includes the following listed in this critical care notation. Medical Decision Making - Medical Records Medical records reviewed: Yes: I reviewed the patient's medical records. - Lamont Inquiry Pt receiving controlled substance: No Lamont was queried for this patient: No Vital Signs: 10/13/17 10:12 Temperature 98.4 F Temperature Source Oral Pulse Rate [Right Radial] 75 Respiratory Rate 24 02 Sat by Pulse Oximetry 95 Oxygen Delivery Method Room Air - Lab Data Lab Results 10/13/17 10:45: WBC 10.2, RBC 4.91, Hgb 14.3, Hct 43.3, MCV 88.1, MCH 29.2, MCHC 33.1, RDW 13.1, Plt Count 194, MPV 8.0, Neut % (Auto) 65.3, Lymph % (Auto) 25.9, [place] % (Auto) 6.5, Eos % (Auto) 2.1, Baso % (Auto) 0.2, Neut # (Auto) 6.7 , Lymph # (Auto) 2.7, [place] # (Auto) 0.7, Eos # (Auto) 0.2, Baso # (Auto) 0.0 10/13/17 10:45: Sodium 141, Potassium 3.8, Chloride 103, Carbon Dioxide 29, Anion Gap 12.8, BUN 20 H, Creatinine 1.08, Estimated Creat Clear 109, Estimated GFR 67, Est GFR ( Amer) 81, Glucose 102, Calcium 9.0, Total Bilirubin 0.4 , AST 20, ALT 37, Alkaline Phosphatase 94, Total Creatine Kinase 124, CK-MB (CK- 2) 2.1 D, CK-MB (CK-2) Rel Index 1.7, Troponin I < 0.02, Total Protein 8.1, Albumin 3.8, Globulin 4.3 H, Albumin/Globulin Ratio 0.9 L 10/13/17 10:45: D-Dimer 1650 H* 10/13/17 10:45: B-Natriuretic Peptide 22 Result diagrams: 10/13/17 10:45 10/13/17 10:45 Orders (Tests/Meds): ED MEDICATIONS Generic Name Dose Route Start Last Admin Trade Name Freq PRN Reason Stop Dose Admin Nitroglycerin 0.5 gm 10/13/17 10:45 10/13/17 10:48 Nitroglycerin 1 Inch Oint Udp TD 11/12/17 10:44 0.5 gm Q6H KIANA Administration Discontinued Medications Generic Name Dose Route Start Last Admin Trade Name Freq PRN Reason Stop Dose Admin Aspirin 325 mg 10/13/17 10:51 10/13/17 10:52 Aspirin Ec 325mg Tablet PO 10/13/17 10:52 325 mg ONCE ONE Administration Iopamidol 75 ml 10/13/17 13:20 10/13/17 13:21 [id number]; 75ml Vial IV 10/13/17 13:21 75 ml ONCE ONE Administration Sodium Chloride 10 ml 10/13/17 13:20 10/13/17 13:21 Rad-Saline Flush 10ml Syringe IV 10/13/17 13:21 10 ml ONCE ONE Administration Sodium Chloride 50 ml 10/13/17 13:20 10/13/17 13:21 Rad-Ns 50ml Vial IV 10/13/17 13:21 50 ml ONCE ONE Administration ORDERS Category Date Time Status CT chest w/PE protocol request [CT Req chest with Cat Scan 10/13/17 11: 28 Taken PE protocol] Stat - Radiology Data #1 Image(s): Chest Image Reviewed: Yes I have reviewed radiologist's interpretation Preliminary Findings: Abnormal IMPRESSION: Borderline COPD no acute chest pathology noted
[2017-10-13 10:56] LABS: Basophils % 0.2 % (0.1-2.0); Eosinophils # 0.2 K/mm3 (0.0-0.4); Eosinophils % 2.1 % (0.1-12.0); Hematocrit 43.3 % (42.0-52.0); Hemoglobin 14.3 g/dL (14.1-18.0); Lymphocytes # 2.7 K/mm3 (0.7-4.5); Lymphocytes % 25.9 K/mm3 (10-50); Mean Corpuscular HGB Conc 33.1 g/dL (31.8-35.4); Mean Corpuscular Hemoglobin 29.2 pg (27.0-31.2); Mean Corpuscular Volume 88.1 fl (80-94); Monocytes # 0.7 K/mm3 (0.1-1.0); Monocytes % 6.5 % (1.7-9.3); Neutrophils # 6.7 K/mm3 (1.8-7.8); Neutrophils % 65.3 % (37.0-80.0); Platelet Count 194 K/mm3 (142-424); Red Blood Count 4.91 M/mm3 (4.60-6.20); Red Cell Distribution Width 13.1 % (11.5-17.5); White Blood Count 10.2 K/mm3 (4.8-10.8)
[2017-10-13 11:16] LABS: Alanine Aminotransferase 37 U/L (12-78); Albumin Level 3.8 gm/dL (3.4-5.0); Albumin/Globulin Ratio 0.9 (1.1-1.8); Alkaline Phosphatase 94 U/L (46-116); Anion Gap 12.8 mEq/L (5-15); Aspartate Amino Transferase 20 U/L (15-37); Bilirubin,Total 0.4 mg/dL (0.2-1.0); Blood Urea Nitrogen 20 mg/dL (7-18); CKMB Relative Index 1.7 U/L (0-4.0); Carbon Dioxide 29 mmol/L (21.0-32.0); Chloride 103 mmol/L (98-107); Creatine Kinase 124 U/L (39-308); Creatine Kinase MB 2.1 mg/ml (0.0-3.6); Creatinine Clearance Estimated 109 mL/min (0-300); Creatinine,Serum 1.08 mg/dL (0.70-1.30); Estimated Glomerular Filt Rate 67 ml/min (>60); GFR (African American) 81 ML/MIN (>60); Globulin 4.3 gm/dl (1.3-3.2); Glucose 102 mg/dL (74-106); Potassium 3.8 mmoL/L (3.5-5.1); Sodium 141 mmol/L (136-145); Total Protein,Serum 8.1 gm/dL (6.4-8.2); Troponin I < 0.02 ng/ml (0.00-0.06)
[2017-10-13 11:20] LABS: D-Dimer 1650 (0-400)
--- NOTE | 2017-10-13 11:27 | PC.NURSE ---
REPORTED TO DR WILLAMS PTS D DIMER IS [id number]
--- NOTE | 2017-10-13 12:58 | PC.NURSE ---
Dr Farley called result of chest ct--negative for PE--Dr Portillo informed
--- NOTE | 2017-10-13 13:35 | PC.NURSE ---
Pt to chemical lab supervisor at this time, transported by RHONDA [facility]
== END 2017-10-13 17:25 | disposition home or self-care (01) ==
LOC: ER 13:32 → CATHLAB 13:35
PROVIDERS: Emergency Provider Emergency Medicine; Family Provider Nurse Practitioner Family; PCP Family Medicine; Visit Provider Internal Medicine
DX: I25.110 Atherosclerotic heart disease of native coronary artery with unstable angina pectoris (principal); I10 Essential (primary) hypertension; R07.9 Chest pain, unspecified; Z87.891 Personal history of nicotine dependence; Z86.718 Personal history of other venous thrombosis and embolism; Z86.711 Personal history of pulmonary embolism
CPT/HCPCS: 71046; 71275; 80053; 82550; 82553; 83880; 84484; 85025; 85378; 93005; 93458; 99152; 99283; C1725; C1760; C1769; J1644; Q9967

== ENCOUNTER → 2017-10-23 13:30 | Outpatient (CLI) | payer MEDICARE, OTHER, SELFPAY ==
--- NOTE | 2017-10-23 13:35 | XR_ITS ---
XR hip LT 2-3V w/pelvis HISTORY: ITS.REASON: Left hip pain ORDERING PHYSICIAN: Jerad Kat MD PATIENT AGE: 71 years COMPARISON: None FINDINGS: There are severe osteoarthritic changes of the left hip with loss of joint space also sclerosis and osteophyte formation. There are also extensive subarticular cystic changes of the acetabulum and femoral head with mild dysplastic changes of the femoral head. There are moderate osteoarthritic changes of the right hip also noted. IMPRESSION: 1. Severe osteoarthritis of the left hip with extensive subarticular cystic changes and mild dysplastic changes of the femoral head 2. Moderate osteoarthritic change of the right hip
== END ==
PROVIDERS: PCP Family Medicine; Visit Provider Orthopaedic Surgery
DX: M25.552 Pain in left hip (principal)
CPT/HCPCS: 73502

== ENCOUNTER → 2017-11-09 10:03 | Outpatient (CLI) | payer MEDICARE, OTHER, SELFPAY ==
[2017-11-09 10:09] LABS: Microscopic, Urine URINE MICROSCOPIC (MICROSCOPIC)
[2017-11-09 10:39] LABS: Basophils % 0.3 % (0.1-2.0); Eosinophils # 0.2 K/mm3 (0.0-0.4); Eosinophils % 2.6 % (0.1-12.0); Hematocrit 37.3 % (42.0-52.0); Hemoglobin 12.8 g/dL (14.1-18.0); Lymphocytes # 2.5 K/mm3 (0.7-4.5); Lymphocytes % 27.9 K/mm3 (10-50); Mean Corpuscular HGB Conc 34.3 g/dL (31.8-35.4); Mean Corpuscular Hemoglobin 29.1 pg (27.0-31.2); Mean Corpuscular Volume 84.7 fl (80-94); Mean Platelet Volume 7.8 fl (7.4-10.4); Monocytes # 0.6 K/mm3 (0.1-1.0); Monocytes % 6.7 % (1.7-9.3); Neutrophils # 5.7 K/mm3 (1.8-7.8); Neutrophils % 62.6 % (37.0-80.0); Platelet Count 214 K/mm3 (142-424); Red Cell Distribution Width 13.3 % (11.5-17.5); White Blood Count 9.1 K/mm3 (4.8-10.8)
[2017-11-09 10:54] LABS: Appearance,Urine CLEAR (Clear); Bilirubin,Urine Negative (Negative); Blood, Urine Negative (Negative); Color,Urine YELLOW (Yellow); Glucose,Urine (UA) Negative (Negative); Ketones,Urine Negative (Negative); Leukocyte Esterase,Urine Negative (Negative); Nitrate,Urine Negative (Negative); Protein,Urine Negative (Negative); Specific Gravity, Urine 1.025 (1.005-1.030); Urobilinogen,Urine 0.2 EU/dl (0.2)
[2017-11-09 11:10] LABS: WBC,Urine Occasional #/hpf (0-3)
[2017-11-09 11:21] LABS: Alanine Aminotransferase 31 U/L (12-78); Albumin Level 3.7 gm/dL (3.4-5.0); Alkaline Phosphatase 97 U/L (46-116); Anion Gap 14.7 mEq/L (5-15); Aspartate Amino Transferase 21 U/L (15-37); Bilirubin,Total 0.3 mg/dL (0.2-1.0); Blood Urea Nitrogen 22 mg/dL (7-18); Calcium 9.1 mg/dL (8.5-10.1); Carbon Dioxide 25 mmol/L (21.0-32.0); Chloride 111 mmol/L (98-107); Creatinine,Serum 1.34 mg/dL (0.70-1.30); Estimated Glomerular Filt Rate 52 ml/min (>60); GFR (African American) 63 ML/MIN (>60); Globulin 3.6 gm/dl (1.3-3.2); Glucose 117 mg/dL (74-106); Potassium 3.7 mmoL/L (3.5-5.1); Sodium 147 mmol/L (136-145); Total Protein,Serum 7.3 gm/dL (6.4-8.2)
== END ==
PROVIDERS: Visit Provider Orthopaedic Surgery
DX: Z01.818 Encounter for other preprocedural examination (principal); M16.0 Bilateral primary osteoarthritis of hip
CPT/HCPCS: 36415; 80053; 81001; 85025; 86850

== ENCOUNTER 2017-11-19 06:19 | Inpatient (IN) ==
--- NOTE | 2017-11-19 07:00 | Progress Note ---
[facility] Anesthesia Checklist - Patient Identification Patient Identification: Arm Band, Verbal (Name & ) - Structural Data Admitted From: Home Consent for Planned Operative Procedure(s) Verified: Yes Verified Documents: Surgical Consent, History and Physical, Cardiac Clearance - NPO Status Verified Time NPO: 00:00 - Additional verifications Anesthesia Reactions: No - Airway Assessment C-Spine Mobility Assessed: Yes TMJ Mobility Assessed: Yes Dentition: Good Dentition - Neurological Assessment Level of Consciousness: Awake Hx Seizures: No Numbness or tingling in extremities: No - Anesthesia Plan Anesthesia Risk discussed: Yes Anesthesia Plan: Verified Anesthesia Type: Spinal [facility] Anesthesia HX I have reviewed the patient's past medical history: Yes Medical History: Reports:: Cancer (BASAL CELL CANCER REMOVED FROM BACK), Deep Vein Thrombosis, Hypertension, Pulmonary Embolism Denies:: Diabetes Mellitus Type 1, Diabetes Mellitus Type 2, Hyperlipidemia, Internal Pacemaker, MRSA, Myocardial Infarction, Seizures, Transient Ischemic Attacks (TIA) Other Medical History: Reports: Arthritis, Cataracts, Other. Denies: Blood Transfusion Reaction Comment: Obesity, Former smoker Other Surgeries: Yes: Hernia Repair, Other. No: Pacemaker Amputation: No Fractures: No *Family Hx:: Cancer, Heart Attack, Hypertension, Stroke
--- NOTE | 2017-11-19 11:42 | Progress Note ---
[facility] Anesthesia Record Part I Intake, IV Amount: 1,900 Estimated blood loss (mL): 650 Urine output (mL): 600 Blood Products used (#): none Blood Pressure: 93/51 SaO2: 96 Pulse Rate: 85 Respiratory Rate: 18 Temperature: 97.5 F Patient is:: Drowsy, Nasal O2, Stable Stable to PACU at:: 11:36
--- NOTE | 2017-11-19 11:43 | Progress Note ---
[facility] Anesthesia Record Part II Discharge Time: 12:06 Destination: Medical Surgical Department PACU nurse assessment reviewed?: Yes Patient Condition:: Good Anesthesia Complications:: None
--- NOTE | 2017-11-19 11:57 | Operative Note ---
Date of procedure: 11/19/17 Pre-op Diagnosis:: Advanced DJD left hip Post-op Diagnosis:: Advanced DJD left hip Procedure performed:: Left total hip arthroplasty Surgeon:: Sridhar Schreiber MD Information Technology Coordinator(s):: Dr. Kat; Dr. Kat's assistance was needed given the difficulty of the procedure with his large body habitus and advanced arthritis with very stiff and very vascular hip joint. 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 He is giving a history of progressively worsening left hip pain for the last 1 year or so. His x-rays showed severe left hip arthritis as well as moderate right hip arthritis. He reports some pain in his right hip but it is relatively tolerable compared to the left hip pain. Has had left hip pain for over one year and his symptoms have progressed rapidly over the last for 6 months or so. He localizes the pain to anterior, posterior and lateral aspect of his left hip with radiation into the upper thigh. He takes gabapentin and as needed NSAIDs without much benefit. He says he has been struggling really with his hip over the last 3 months or so. He says he can hardly walk a few yards without support. He uses a cane to walk with. He reports night pain and sleep disturbance as well as difficulty with activities of daily living including caring for his feet, dressing and undressing and putting socks and shoes on. He also reports severe stiffness in his left hip. He has history of low back pain and previously had back surgery many years ago. He also reports that his pain is worse in cold weather and also aggravated with walking, weightbearing and climbing stairs. He reports some relief using walking aids and at the moment he mostly walks with a cane. No history of any distal tingling or numbness. No history of any radicular symptoms. He also reports that his left leg feels shorter than the right. He says he almost fell couple of times because of the hip pain and stiffness but fortunately did not sustain any injuries or fractures. The arthritis is causing severe pain and significant disability and has not responded well to conservative management. The pain also is affecting his lifestyle, activities of daily living and significantly impacting his sleep. He is also at a high risk of falls from his arthritis. He we discussed both nonsurgical and surgical options and he preferred to have a left total hip arthroplasty. I also agree that the most suitable option for his left hip at this stage would be a total hip arthroplasty. He says he already did some research on Internet about hip arthritis/hip replacement surgery and is keen to proceed with a left total hip arthroplasty. A total hip arthroplasty is indicated to relieve pain and the help prevent the disability and risk of falls. Operative findings:: Intraoperatively, end-stage osteoarthritis of the hip joint was noted which was fitting with the preoperative x-ray findings. The femoral head was grossly arthritic and misshapen; osteophytes were noted on both the acetabulum and the femoral head. There was erosion of the acetabulum with subcortical cyst formation. The capsule was thickened and very vascular. Hip range of motion was markedly decreased. The bone quality was excellent. Operative note:: On the day of the procedure the patient and family were met in the preoperative area and the patient was positively identified. A physical examination was performed and documented. The operative site was appropriately marked and initialed by me. I again reviewed the diagnosis, natural history and management options in detail including both nonsurgical and surgical. We discussed the proposed surgery, risks and benefits and alternatives in detail. The complications discussed include but are not limited to infection, injury to nerves, blood vessels and tendons, DVT and PE, fracture, limb length inequality , dislocation, implant malpositioning, implant failure, squeaking, loosening, acetabular wear, osteolysis, periprosthetic femur fracture, heterotopic ossification, abductor weakness and limp, incomplete relief of pain, likely need for further surgery in future including revision, anesthetic complications including heart attack, stroke and even . We also discussed the postoperative recovery and rehabilitation. He verbalized a good understanding and wished to proceed with the proposed surgery. The consent form was reviewed and signed. The patient was brought to the operating room and a general anesthesia was administered by the service assistant. The patient was then positioned in the RIGHT lateral decubitus position with the LEFT hip facing up. We used Wixon hip positioner for this. All the bony prominences were appropriately padded. The LEFT hip was then prepped with isopropyl alcohol followed by chlorhexidine and draped in the usual sterile fashion. The entire operative team wore isolation suits and the Operating Room traffic was controlled. The skin incision was marked for a posterior approach to the hip joint. The perineum and the operative site were sealed off with Ioban drape. A preprocedure timeout was performed as per hospital protocol identifying the patient, correct surgery and correct site. Administration of prophylactic IV Ancef was confirmed with the anesthetic team. We decided not to give him tranexamic acid given his history of DVT and PE in the past. A posterior approach was used to the LEFT hip joint. The skin incision was made centering over the posterior part of the greater trochanter extending posteriorly in a curved fashion across the buttock. An electrocautery was used for hemostasis. The dissection was carried through the subcutaneous tissue down to the fascia lisa. The fascia lisa and gluteus fascia were split in line with the incision and a Charnley retractor was placed. The trochanteric bursa was then removed with blunt dissection. The sciatic nerve was palpated and kept out of harm's way throughout the rest of the procedure. The hip joint was internally rotated and the fat over the short external rotators was cleared with a sponge. The short external rotator muscles were identified, a tag stitch was placed near their insertion and they were divided close to the trochanter with electrocautery. This exposed the joint capsule which was opened in a T-shaped incision after tag stitches were placed to both the leaves of the capsule. The capsule was noted to be very thickened and very vascular and we encountered a significant amount of bleeding from the soft tissues which we managed to control with electrocautery. Given the advanced arthritic changes and extensive osteophyte formation, it was somewhat difficult to dislocate the hip. After dislocating the hip, the femoral cutting guide was used to demarcate the appropriate level of the neck cut and the neck was osteotomized with an oscillating saw. Again removal of the femoral head was difficulty with a lot of adhesions around the femoral neck. Once removed, the femoral head was noted to be very deformed with extensive loss of cartilage. We then placed anterior and posterior Cobra retractors and proceeded to prepare the acetabulum. The soft tissue contents of the acetabulum including the ligamentum teres and the labrum were removed. We then proceeded to prepare the acetabulum. We started reaming the acetabulum starting with a size 45 reamer which were used for medialization. We then proceeded with reaming up to size 55 for a size 56 acetabular shell. However, the 56 size trial cup was not fitting firmly enough. Therefore we decided to ream up to 57 and use a 58 mm revision acetabular shell. Following appropriate reaming, we used a size 58 cup trial which could be seated firmly and was noted to be stable. We then removed the trial shell and placed a size 58 definitive acetabular revision shell at approximately 45 degrees inclination and 20 degrees of anteversion. The press-fit fixation was quite solid therefore we decided against placing any acetabular screws. We then placed the metal liner into the shell and impacted into place. We then placed a Ray-Karly gauze in the acetabulum and proceeded to prepare the proximal femur. We had to proceed carefully with this step given the marked stiffness of his hip. After removing the soft tissue from the medial aspect of the greater trochanter, a box osteotome was used to remove the bone from the proximal femur. A canal entry reamer was then used to open the femoral canal paying close attention to keep the reamer in a lateral position. Next we used the lateralizing drill. Next we performed femoral broaching starting with a small broach, making sure to lateralize the placement and maintain 15-20 degrees of femoral anteversion. The broaching was continued sequentially up to size 5 broach. We found this to be a very good fit without any rocking. We then finished the preparation of the proximal femur with a calcar reamer. We then performed a trial reduction using a size 5 broach, 132 angle neck and 0 mm head. However, we noted the hip to be somewhat loose and the leg slightly shorter compared to the opposite side. Therefore we trialed with 132 angle neck and +4 mm head. The hip was reduced and taken through range of motion and tested in adduction, internal and external rotation as well as with a shuck and posteriorly directed force on a flexed hip. We placed the hip at 90 degrees of flexion and then we could internally rotate to 60 degrees with no evidence of instability. Also in the sleep position of approximately 20 degrees of adduction and internal rotation of 60 degrees the hip was still stable. We also noted that the limb lengths were equal with these components. As the hip was noted to be very stable with these trial components throughout the range of motion, we decided on this as our final construct. Next the trial components were removed and the femoral canal was irrigated with the pulse lavage and suctioned out. The definitive femoral stem was then placed and seated to the appropriate level. This gave us a very good fit without any play whatsoever. We then irrigated and dried the Duffy taper and then placed the definitive MDM femoral head assembly on the stem and tapped into place. The Ray-Karly was removed from the acetabulum and hip joint irrigated with the pulse lavage. The hip was then reduced and taken through range of motion and noted to be very stable. The limb length was also well corrected. The hip joint was then soaked with dilute Betadine (0.35 percent) solution for 3 minutes followed by suctioning of the solution and pulsatile lavage with the 1 L of normal saline. At this point, I also injected the capsule and soft tissue with the local anesthetic cocktail (0.5 percent bupivacaine 200 mg +10 mg of morphine +600 g of epinephrine +750 mg of cefuroxime +30 mg of ketorolac diluted in normal saline to make up a total volume of 120 mL). The hip joint was again thoroughly irrigated with the pulse lavage and good hemostasis was confirmed before proceeding with wound closure. The capsule was closed with #1 Vicryl sutures followed by the reattachment of the external rotators to the greater trochanter with #1 Vicryl sutures. Next the fascia lisa and gluteus fascia were closed with #1 Vicryl sutures. We placed two suction drains- one deep to the fascia lisa and other superficial in the subcu tissue during the wound closure. The wound was then finally irrigated with pulse lavage and suctioned dry. Next the subcutaneous tissue was closed with 2-0 Vicryl sutures. The skin was closed with subcuticular 4-0 Monocryl sutures, Dermabond and Steri-Strips. Sterile dressings were applied consisting of Xeroform, 4 x 4 and [address] secured in place with adhesive tape. The patient was then transferred from the operating table onto the bed. The leg lengths were again checked in supine position and noted to be equal. An abduction foam was placed between the legs. The patient was then reversed from the anesthetic and transported to the postoperative recovery area in a stable condition. Patient tolerated the procedure well and there were no immediate complications. The swab, needle and instrument counts were correct according to the scrub team at the end of the procedure. Portable x-rays of the pelvis AP view and lateral view of the LEFT hip were obtained in the recovery area which showed satisfactory placement of the components and no evident complications. Postoperatively, institute and continue standard precautions for a posterior hip approach. Patient can be mobilized weightbearing as tolerated with the help of physical therapy and commence standard physical therapy for a posterior approach on the first postoperative day. Implants: The following [employer] implants were used- [place] Accolade 2 press-fit femoral stem, 132 degree neck angle, size 5 Trident titanium hemispherical shell, 58 mm 46 mm inner diameter MDM cementless liner Rastafarian MDM X3 insert 28/52, size 46F Biolox delta ceramic head V 40 femoral head, size 28 mm x +4 mm neck length Industry patient registration representative: Kahlil Dobbins from [employer]. Condition: stable Disposition: floor Specimens:: None Complications:: None
--- NOTE | 2017-11-19 15:05 | Progress Note ---
Subjective Date: 11/19/17 Time: 14:30 Principal diagnosis: Status post left total hip arthroplasty Interval history: Patient is on the floor following a left total hip arthroplasty earlier today. He says he is doing well and reports no problems. He reports no pain or discomfort in the hip. He had spinal anesthesia for surgery and had an episode of hypotension when he was brought to the floor from the postoperative recovery area. I was scrubbed up in the OR in a different case and patient was seen by the network support engineer. His blood pressure improved following a bolus of fluids. Patient says he had some headache earlier but no problems now. Says he is eating and drinking well. No history of any fevers, chills or rigors. No history of any cough, chest pain, shortness of breath or palpitations. PN: Obj Ex Vital signs: Temp Pulse Resp BP Pulse Ox 97.6 F 83 18 122/75 100 11/19/17 13:14 11/19/17 13:14 11/19/17 13:14 11/19/17 13:14 11/19/17 13:14 - Constitutional no acute distress, obese - Routine HEENT Exam Head: Present: normocephalic, atraumatic Eye: Present: EOMI, PERRL ENT: Present: mucous membranes moist - Routine Neck Exam Present: supple, full ROM, trachea midline - Routine Respiratory Exam Present: CTA bilaterally - Routine Cardiovascular Exam Present: RRR, Normal S1, Normal S2 - Routine Abdominal Exam Present: soft, normoactive bowel sounds - Routine Extremities Exam Comments: On examination of his lower extremities the limb lengths are equal and the alignment is neutral. His thigh and calf are soft and nontender. On examination of the left hip the dressings are clean, dry and intact. Distal pulses are 1+. Distal neurovascular status is intact. He is able to actively move the foot and ankle. - Routine Skin Exam Present: intact, normal turgor - Routine Neurological Exam Present: alert, oriented X3, CN II-XII intact, normal tone, vision grossly intact, hearing grossly intact, normal speech. Absent: sensory deficit - Routine Psychiatric Exam Present: normal affect, cooperative - Urinary Catheter Management Burnette Cath placed during this visit: yes Urethral indwelling: Yes Reason for continuing: Surgical procedure Insertion date: 11/19/17 Insertion time: 07:45 Progress Note: A&P (1) Status post hip replacement Start date: 11/19/17 Status: Acute Assessment and plan: Reviewed the intraoperative findings and procedure performed with the patient and his . Gave him a copy of the postoperative check x-ray. He had an episode of hypotension earlier today which has improved following a fluid bolus. His vitals are stable no and is otherwise doing well. Continue postoperative management as ordered. Start standard physical therapy on first postoperative day. [place] and continue precautions for posterior approach hip replacement. Medical management as per Dr. Sims. Current Visit: Yes (2) Osteoarthritis of left hip Status: Chronic Current Visit: Yes (3) CAD (coronary artery disease) Status: Chronic Current Visit: No (4) Renal insufficiency Status: Chronic Current Visit: No (5) Hypertension Status: Chronic Current Visit: No
--- NOTE | 2017-11-20 07:20 | Consult Report ---
*Admission Date: 11/19/17 *Chief complaint: Postop left hip replacement *History of present illness: 82-year-old male with hypertension and hyperlipidemia who underwent left total hip arthroplasty yesterday morning. I have been consulted for medical management of his hypertension. Patient reports feeling well this morning. He denies pain in his left hip. I had seen the patient postoperatively as well for preoperative physical examination. [facility] History I have reviewed the patient's past medical history: Yes Medical History: Reports:: Deep Vein Thrombosis, Hypertension, Pulmonary Embolism Denies:: Cancer, Diabetes Mellitus Type 1, Diabetes Mellitus Type 2, Hyperlipidemia, Internal Pacemaker, MRSA, Myocardial Infarction, Seizures, Transient Ischemic Attacks (TIA) Other Medical History: Reports: Arthritis, Cataracts, Other. Denies: Blood Transfusion Reaction Other Surgeries: Yes: Hernia Repair, Other. No: Pacemaker Amputation: No Fractures: No - *Social History Educational Level: Attended High School Smoking Status: Former smoker Tobacco Type: cigarettes # Packs/Day (cigarettes): 1 #Yrs smoked (if former smoker): 10 Alcohol Intake: never Occupational Status: retired Housing: house Household Members: none - Psychiatric History Expresses thoughts of harming self/others: None Suicide Plan Description: No Plan *Family Hx:: Cancer, Heart Attack, Hypertension, Stroke Review of Systems - Review of Systems Review of systems:: pertinent systems reviewed and negative unless documented below - Constitutional Denies body ache(s), Denies chills, Denies daytime sleepiness - *Cardiovascular Denies chest pain, Denies chest pain at rest - *Respiratory Denies cough, Denies shortness of breath - *Gastrointestinal Denies abdominal pain Meds Home Medications Medication Instructions Recorded Confirmed Type Atorvastatin Calcium [Atorvastatin 20 mg PO DAILY 08/01/17 11/19/17 History 20mg Tab] Fluoxetine HCl [Prozac] 20 mg PO DAILY 08/01/17 11/19/17 History Gabapentin [Neurontin 800mg Tab] 900 mg PO BID 08/01/17 11/19/17 History hydroCHLOROthiazide [HCTZ 12.5mg 6.25 mg PO DAILY 08/01/17 11/19/17 History capsule] Amlodipine Besylate [Norvasc 10mg 10 mg PO DAILY 08/02/17 11/19/17 History tablet] Lisinopril [Lisinopril 40mg Tablet] 40 mg PO DAILY 08/02/17 11/19/17 History Chlorhexidine Gluconate 1 applic TOPICAL ONCE 11/14/17 11/14/17 History Ferrous Sulfate 325 mg PO BID 11/14/17 11/19/17 History Allergies Allergy/AdvReac Type Severity Reaction Status Date / Time No Known Allergies Allergy Verified 10/23/17 14:38 Exam Vital signs and Labs for Last 24 Hours: Temp Pulse Resp BP Pulse Ox 98.2 F 74 18 132/62 97 11/20/17 03:42 11/20/17 03:42 11/20/17 03:42 11/20/17 03:42 11/20/17 03:42 Laboratory Results - last 24 hr 11/19/17 06:30: Blood Type A Positive, Antibody Screen Negative 11/19/17 07:45: Urine Color Yellow, Urine Appearance Sl cloudy, Urine pH 6.5, Ur Specific [place] 1.015, Urine Protein Negative, Urine Glucose (UA) Negative, Urine Ketones Negative, Urine Blood Negative, Urine Nitrate Negative, Urine Bilirubin Negative, Urine Urobilinogen 0.2, Ur Leukocyte Esterase Negative, Urine WBC Occasional, Ur Squamous Epith Cells 3-5, Urine Bacteria 2+ A I & O for Last 24 hours: Intake & Output 11/17/17 11/18/17 11/19/17 11/20/17 11:59 11:59 11:59 11:59 Intake Total 1900 / 1900 1780 / 1780 Output Total 600 / 600 250 / 250 Balance 1300 / 1300 1530 / 1530 Weight 301 lb Narrative: Patient is awake and alert and oriented to person place and time this morning. HEENT exam is grossly normal. Lungs are clear to auscultation. Heart has a regular rate and rhythm without murmurs. Abdomen is obese and soft, nontender, nondistended. Extremity exam difficult for patient being able to move his left foot and ankle. Sensation is intact in the left leg. Pulses are intact in the left leg. Internal Medicine - CN: Reslt - Labs Labs: Urine 11/19/17 Range/Units 07:45 Urine Color Yellow (Yellow) Urine Appearance Sl cloudy (Clear) Urine pH 6.5 (5.0-8.5) Ur Specific [place] 1.015 (1.005-1.030) Urine Protein Negative (Negative) Urine Glucose (UA) Negative (Negative) Assessment and Plan (1) Status post hip replacement Current visit: Yes Status: Acute Category: Surgical Code(s): Z96.649 - Presence of unspecified artificial hip joint (2) Osteoarthritis of left hip Current visit: Yes Status: Chronic Category: Medical Code(s): M16.12 - Unilateral primary osteoarthritis, left hip (3) CAD (coronary artery disease) Current visit: No Status: Chronic Category: Medical Code(s): I25.10 - Atherosclerotic heart disease of [place] coronary artery without angina pectoris (4) Renal insufficiency Current visit: No Status: Chronic Category: Medical Code(s): N28.9 - Disorder of kidney and ureter, unspecified (5) Hypertension Current visit: No Status: Chronic Category: Medical Code(s): I10 - Essential (primary) hypertension - Assessment and plan all Dx Assessment and Plan for all problems:: Routine medical management. Home medications have been ordered. Patient has been eating well so I will stop his fluids this morning
[2017-11-20 07:26] LABS: Basophils % 0.1 % (0.1-2.0); Eosinophils % 0.1 % (0.1-12.0); Hematocrit 28.9 % (42.0-52.0); Hemoglobin 9.7 g/dL (14.1-18.0); Lymphocytes # 1.5 K/mm3 (0.7-4.5); Lymphocytes % 11.6 K/mm3 (10-50); Mean Corpuscular HGB Conc 33.5 g/dL (31.8-35.4); Mean Corpuscular Hemoglobin 29.6 pg (27.0-31.2); Mean Corpuscular Volume 88.3 fl (80-94); Monocytes # 0.8 K/mm3 (0.1-1.0); Monocytes % 6.1 % (1.7-9.3); Neutrophils # 10.8 K/mm3 (1.8-7.8); Neutrophils % 82.1 % (37.0-80.0); Platelet Count 199 K/mm3 (142-424); Red Blood Count 3.27 M/mm3 (4.60-6.20); Red Cell Distribution Width 13.7 % (11.5-17.5); White Blood Count 13.2 K/mm3 (4.8-10.8)
[2017-11-20 07:35] LABS: Anion Gap 11.8 mEq/L (5-15); Potassium 3.8 mmoL/L (3.5-5.1)
--- NOTE | 2017-11-20 08:03 | Pharmacy Consult Notes ---
[facility] Pharmacy VTE Monitoring - Patient Demographics Admission date: 11/19/17 Report Date: 11/20/17 Time: 08:01 Allergies/Adverse Reactions: Patient Allergies No Known Allergies Allergy (Verified 10/23/17 14:38) Height: 1.88 m Weight: 136.531 kg Patient Problems: Current Active Problems Osteoarthritis of left hip (Chronic) Status post hip replacement (Acute) - VTE Risk Labs: VTE Related Lab Results Hgb 9.7 g/dL (14.1-18.0) L 11/20/17 06:50 Hct 28.9 % (42.0-52.0) L 11/20/17 06:50 Plt Count 199 K/mm3 (142-424) 11/20/17 06:50 BUN 15 mg/dL (7-18) 11/20/17 06:50 Creatinine 0.99 mg/dL (0.70-1.30) 11/20/17 06:50 Estimated Creat Clear 125 mL/min (0-300) 11/20/17 06:50 Was VTE Risk Assessment Performed: Yes VTE Score: 4 VTE Risk Level: Low Risk Clinical Trial Participant: No - Prophylaxis VTE Prophylaxis Ordered?: Yes Types of VTE Prophylaxis: IPCS Knee High Location of Applied Device: Right Leg Pharmacologic Type: Other (xarelto)
--- NOTE | 2017-11-20 12:59 | Progress Note ---
Subjective Date: 11/20/17 Time: 10:30 Principal diagnosis: Status post left total hip arthroplasty Interval history: Patient is status post LEFT total hip arthroplasty post op day #1. Patient is sitting out in the chair. Says is doing well and reports no problems. Patient has minimal pain and says it's well-controlled with medication. No history of any nausea or vomiting. No history of any cough, chest pain, shortness of breath or palpitations. Patient says he is eating and drinking well. No history of any distal tingling or numbness. PN: Obj Ex Vital signs: Temp Pulse Resp BP Pulse Ox 98.4 F 82 18 128/72 94 L 11/20/17 12:04 11/20/17 12:04 11/20/17 12:04 11/20/17 12:04 11/20/17 12:04 Narrative: Abnormal Lab Results 11/20/17 11/20/17 06:50 06:50 WBC 13.2 H RBC 3.27 L Hgb 9.7 L Hct 28.9 L MCV 88.3 MCH 29.6 MCHC 33.5 RDW 13.7 Plt Count 199 MPV 8.0 Neut % (Auto) 82.1 H Lymph % (Auto) 11.6 [place] % (Auto) 6.1 Eos % (Auto) 0.1 Baso % (Auto) 0.1 Neut # (Auto) 10.8 H Lymph # (Auto) 1.5 [place] # (Auto) 0.8 Eos # (Auto) 0.0 Baso # (Auto) 0.0 Sodium 142 Potassium 3.8 Chloride 106 Carbon Dioxide 28 Anion Gap 11.8 BUN 15 Creatinine 0.99 Estimated Creat Clear 125 Estimated GFR 74 Est GFR ( Amer) 89 Glucose 158 H Intake & Output 11/20/17 11/20/17 11/20/17 03:59 11:59 19:59 Intake Total 2019 Output Total 250 / 250 Balance 1770 / 1770 Weight 301 lb Intake: Intake, Oral Amount 480 / 480 Intake, Total IV Amount 1540 / 1540 Cefazolin Sodium 2 gm In 0.9 % 1540 / 1540 Sodium Chloride 100 ml @ 200 mls/hr IV Q8H [facility] Rx#:[id number] Output: Output, Other Amount 250 / 250 Exam General appearance: alert, active, awake, no acute distress Eyes: normal exam ENT: normal exam Neck: normal inspection Cardiovascular: regular rate & rhythm, normal peripheral pulses, Respiratory: clear to auscultation, normal breath sounds ABD: normal exam; soft and non tender Genitourinary: [Catheter in situ. 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 Thigh and calf are soft and nontender. On examination of the [LEFT hip] the dressings are clean, dry and intact. Thigh and calf are soft and nontender. Distal pulses are 2+. Distal sensation is intact to light touch throughout. Has good range of active foot and ankle movements. Surgical drain in place and there is small amount, maybe 10-15 mL in the reservoir. Postoperative check x-ray pelvis/left hip are showing satisfactory appearance with good alignment and fixation of the components. No radiological complications noted. - Urinary Catheter Management Burnette Cath placed during this visit: yes, but has since been removed by the nurse Urethral indwelling: Yes Insertion date: 11/19/17 Insertion time: 07:45 Removal date: 11/20/17 Progress Note: A&P (1) Status post hip replacement Start date: 11/19/17 Status: Acute Assessment and plan: Status post LEFT total hip arthroplasty, postoperative day 1, doing well Plan: Ambulate, DVT prophylaxis, Precautions for posterior SYLVIA He is doing very well and reports no problems. He started rehab today and he is mobilizing well weightbearing as tolerated on the LEFT side with the walker. Continue DVT prophylaxis. 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 Continue abduction pillow when in bed and continue standard precautions for the posterior approach hip replacement. Care management consult regarding discharge planning. Patient expressed preference to go to the rehab facility for short period. Medical management as per Dr. Sims. Current Visit: Yes (2) Osteoarthritis of left hip Status: Chronic Current Visit: Yes (3) CAD (coronary artery disease) Status: Chronic Current Visit: No (4) Renal insufficiency Status: Chronic Current Visit: No (5) Hypertension Status: Chronic Current Visit: No
--- NOTE | 2017-11-21 07:01 | Progress Note ---
Internal Medicine - PN: Subj *Date: 11/21/17 *Time: 07:00 Interval history: Patient did well yesterday. He denies complaints this morning. He is awaiting precertification for discharge to [facility] to continue the rehab process Exam Vital signs and Labs for Last 24 Hours: Temp Pulse Resp BP Pulse Ox 99.4 F 89 18 146/57 93 L 11/21/17 04:32 11/21/17 04:32 11/21/17 04:32 11/21/17 04:32 11/21/17 04:32 Laboratory Results - last 24 hr 11/20/17 06:50: WBC 13.2 H, RBC 3.27 L, Hgb 9.7 L, Hct 28.9 L, MCV 88.3, MCH 29.6, MCHC 33.5, RDW 13.7, Plt Count 199, MPV 8.0, Neut % (Auto) 82.1 H, Lymph % (Auto) 11.6, [place] % (Auto) 6.1, Eos % (Auto) 0.1, Baso % (Auto) 0.1, Neut # ( Auto) 10.8 H, Lymph # (Auto) 1.5, [place] # (Auto) 0.8, Eos # (Auto) 0.0, Baso # ( Auto) 0.0 11/20/17 06:50: Sodium 142, Potassium 3.8, Chloride 106, Carbon Dioxide 28, Anion Gap 11.8, BUN 15, Creatinine 0.99, Estimated Creat Clear 125, Estimated GFR 74, Est GFR ( Amer) 89, Glucose 158 H I & O for Last 24 hours: Intake & Output 11/18/17 11/19/17 11/20/17 11/21/17 11:59 11:59 11:59 11:59 Intake Total 1900 / 1900 2260 / 2260 840 / 840 Output Total 600 / 600 250 / 250 2060 / 2060 Balance 1300 / 1300 2009 -1220 / -1220 Weight 301 lb Microbiology Reports for the Last 24 Hours: Microbiology 11/19/17 07:45 Urine,Catheterized Urine Culture - Preliminary NO GROWTH AFTER 24 HOURS Narrative: He is awake and alert. Lungs are clear to auscultation. Heart has a regular rate and rhythm. Abdomen is soft. Assessment and Plan (1) Status post hip replacement Start date: 11/19/17 Current visit: Yes Status: Acute Category: Surgical Code(s): Z96.649 - Presence of unspecified artificial hip joint (2) Osteoarthritis of left hip Current visit: Yes Status: Chronic Category: Medical Code(s): M16.12 - Unilateral primary osteoarthritis, left hip (3) CAD (coronary artery disease) Current visit: No Status: Chronic Category: Medical Code(s): I25.10 - Atherosclerotic heart disease of [place] coronary artery without angina pectoris (4) Renal insufficiency Current visit: No Status: Chronic Category: Medical Code(s): N28.9 - Disorder of kidney and ureter, unspecified (5) Hypertension Current visit: No Status: Chronic Category: Medical Code(s): I10 - Essential (primary) hypertension - Assessment and plan all Dx Assessment and Plan for all problems:: From a medical standpoint he is appropriate for discharge. I will follow the patient at [facility] once he is transferred there
[2017-11-21 07:03] LABS: Basophils % 0.3 % (0.1-2.0); Eosinophils # 0.2 K/mm3 (0.0-0.4); Eosinophils % 1.2 % (0.1-12.0); Hematocrit 30.4 % (42.0-52.0); Hemoglobin 10.3 g/dL (14.1-18.0); Lymphocytes # 2.8 K/mm3 (0.7-4.5); Lymphocytes % 21.9 K/mm3 (10-50); Mean Corpuscular HGB Conc 33.9 g/dL (31.8-35.4); Mean Corpuscular Hemoglobin 30.2 pg (27.0-31.2); Mean Corpuscular Volume 89.2 fl (80-94); Mean Platelet Volume 7.9 fl (7.4-10.4); Monocytes # 0.8 K/mm3 (0.1-1.0); Monocytes % 6.1 % (1.7-9.3); Neutrophils # 8.9 K/mm3 (1.8-7.8); Neutrophils % 70.5 % (37.0-80.0); Platelet Count 191 K/mm3 (142-424); Red Cell Distribution Width 13.9 % (11.5-17.5); White Blood Count 12.7 K/mm3 (4.8-10.8)
[2017-11-21 07:13] LABS: Anion Gap 11.5 mEq/L (5-15); Potassium 3.5 mmoL/L (3.5-5.1)
[2017-11-21 07:40] VITALS: BP 161/44
--- NOTE | 2017-11-21 13:22 | Discharge Summary ---
General - General Admission date:: 11/19/17 Discharge date: 11/21/17 HPI HPI: Patient is a 72year-old male who has end-stage osteoarthritis of his LEFT hip unresponsive to conservative management. He was admitted to hospital following an uncomplicated primary left total hip arthroplasty on 11/19/2017. He is giving a history of progressively worsening left hip pain for the last 1 year or so. His x-rays showed severe left hip arthritis as well as moderate right hip arthritis. He reports some pain in his right hip but it is relatively tolerable compared to the left hip pain. Has had left hip pain for over one year and his symptoms have progressed rapidly over the last for 6 months or so. He localizes the pain to anterior, posterior and lateral aspect of his left hip with radiation into the upper thigh. He takes gabapentin and as needed NSAIDs without much benefit. He says he has been struggling really with his hip over the last 3 months or so. He says he can hardly walk a few yards without support. He uses a cane to walk with. He reports night pain and sleep disturbance as well as difficulty with activities of daily living including caring for his feet, dressing and undressing and putting socks and shoes on. He also reports severe stiffness in his left hip. He has history of low back pain and previously had back surgery many years ago. He also reports that his pain is worse in cold weather and also aggravated with walking, weightbearing and climbing stairs. He reports some relief using walking aids and at the moment he mostly walks with a cane. No history of any distal tingling or numbness. No history of any radicular symptoms. He also reports that his left leg feels shorter than the right. He says he almost fell a couple of times because of the hip pain and stiffness but fortunately did not sustain any injuries or fractures. The arthritis is causing severe pain and significant disability and has not responded well to conservative management. The pain also is affecting his lifestyle, activities of daily living and significantly impacting his sleep. He is also at a high risk of falls from his arthritis. A total hip arthroplasty is indicated to relieve pain and the help prevent the disability and risk of falls. His past medical history includes hypertension, coronary artery disease and hyperlipidemia. Hospital Course Hospital Course: Following uncomplicated primary total hip arthroplasty patient was admitted to the inpatient [facility] and has progressed well. His postoperative check x-ray was satisfactory with good alignment and fixation of the components. He was advised to ambulate weightbearing as tolerated on the LEFT side. Patient managed this very well using the walker. He is pain is well controlled with oral analgesics. His surgical incision is clean and dry without any active discharge or signs of infection. His distal neurovascular status is intact. No clinical evidence of DVT. Patient is eating and drinking well without any problems. Patient is medically stable at the time of discharge and was medically cleared for discharge by Dr. Sims. The dressings were changed on the second postoperative day and the wound is healthy and healing well. No signs of any erythema, induration or discharge. Patient was started on Xarelto 10 mg daily for DVT prophylaxis after surgery. His neurovascular status in both lower extremities is intact. Pedal pulses 2+ bilaterally and fully sensate distally. No clinical evidence of DVT noted. Patient was cleared for discharge by physical therapy. On the day of discharge , the wound is clean and dry. The patient's vital signs have been stable throughout and he is afebrile at the time of discharge. He is being [facility] for [facility]hab. Condition at discharge: improved and stable. Treatments and Procedures: Total hip arthroplasty, left hip; date of surgery Objective Vital signs: Temp Pulse Resp BP Pulse Ox 100.0 F H 91 H 20 161/44 93 L 11/21/17 07:39 11/21/17 07:39 11/21/17 07:39 11/21/17 07:39 11/21/17 07:39 no acute distress - *Routine HEENT Exam Head: Present: normocephalic Eye: Present: EOMI, PERRL ENT: Present: mucous membranes moist - *Routine Neck Exam Present: supple, full ROM, trachea midline - *Routine Respiratory Exam Present: CTA bilaterally - *Routine Cardiovascular Exam Present: RRR, Normal S1, Normal S2 - *Routine Abdominal Exam Present: soft, normoactive bowel sounds - *Routine Extremities Exam Comments: On examination of the lower extremities the limb lengths are equal. Thigh and calf are soft and nontender. On examination of the LEFT hip the dressings are clean, dry and intact. The dressings were changed by me. I also removed the surgical drains today. There is no soakage of the dressings. The wound looks clean and healthy. No evidence of any infection or other complications noted. Distal pulses are 2+. Distal sensation is intact. He demonstrates good range of knee, foot and ankle movements. - *Routine Skin Exam Present: intact, normal turgor - *Routine Neurological Exam Present: alert, oriented X3, CN II-XII intact, moving all extremities - Routine Psychiatric Exam Present: normal affect, cooperative Results Labs on day of discharge: Labs from last 24 hours 11/21/17 11/21/17 06:29 06:29 WBC 12.7 H RBC 3.40 L Hgb 10.3 L Hct 30.4 L MCV 89.2 MCH 30.2 MCHC 33.9 RDW 13.9 Plt Count 191 MPV 7.9 Neut % (Auto) 70.5 Lymph % (Auto) 21.9 [place] % (Auto) 6.1 Eos % (Auto) 1.2 Baso % (Auto) 0.3 Neut # (Auto) 8.9 H Lymph # (Auto) 2.8 [place] # (Auto) 0.8 Eos # (Auto) 0.2 Baso # (Auto) 0.0 Sodium 144 Potassium 3.5 Chloride 107 Carbon Dioxide 29 Anion Gap 11.5 BUN 13 Creatinine 0.89 Estimated Creat Clear 125 Estimated GFR 84 Est GFR ( Amer) 101 Glucose 149 H DS: Diagnosis - Discharge Diagnosis (1) Status post hip replacement Start date: 11/19/17 Status: Acute (2) Osteoarthritis of left hip Status: Chronic (3) CAD (coronary artery disease) Status: Chronic (4) Renal insufficiency Status: Chronic (5) Hypertension Status: Chronic Discharge Plan - Patient Discharge Instructions ACTIVITY: Continue current activity, Ambulate as tolerated DIET: advance to your usual diet Additional Instructions: Posterior approach hip replacement precautions for 6 weeks postop. Patient Instructions: DI for Hip Replacement - Follow up Plan Follow up with: Sridhar Schreiber MD [Staff Physician] - Disposition: er [facility] Home Medications: Home Medications Medication Instructions Recorded Confirmed Type Atorvastatin Calcium [Atorvastatin 20 mg PO HS 08/01/17 11/20/17 History 20mg Tab] Fluoxetine HCl [Prozac] 20 mg PO DAILY 08/01/17 11/19/17 History hydroCHLOROthiazide [HCTZ 12.5mg 6.25 mg PO DAILY 08/01/17 11/19/17 History capsule] Amlodipine Besylate [Norvasc 10mg 10 mg PO DAILY 08/02/17 11/19/17 History tablet] Lisinopril [Lisinopril 40mg Tablet] 40 mg PO DAILY 08/02/17 11/19/17 History Ferrous Sulfate 325 mg PO BID 11/14/17 11/19/17 History Gabapentin [Gabapentin 300mg Cap] 900 mg PO BID 11/20/17 11/20/17 History Prescriptions/Medication Reconciliation: New Hydrocod/Acet 5/325 mg [[place] 5/325mg tablet] 1 - 2 tab PO Q4HP PRN #60 tab PRN Reason: Moderate To Severe Pain Rivaroxaban [Xarelto 10mg tablet] 10 mg PO DAILY #30 tab Continue hydroCHLOROthiazide [HCTZ 12.5mg capsule] 6.25 mg PO DAILY Fluoxetine HCl [Prozac] 20 mg PO DAILY Ferrous Sulfate 325 mg PO BID Gabapentin [Gabapentin 300mg Cap] 900 mg PO BID Atorvastatin Calcium [Atorvastatin 20mg Tab] 20 mg PO HS Amlodipine Besylate [Norvasc 10mg tablet] 10 mg PO DAILY Lisinopril [Lisinopril 40mg Tablet] 40 mg PO DAILY - Additional Information Additional Information: Our recommendations on discharge include physical therapy with weightbearing as tolerated and standard postoperative rehab for primary total hip replacement via posterior approach. Patient was also advised to keep the leg elevated and ice the hip on a regular basis. At this stage it is permissible to take a shower and allow the incision to get wet with shower water. After padding the area dry, the wound can be left open. Patient has absorbable sutures and Steri- Strips for wound closure. To continue mobilizing weightbearing as tolerated on the LEFT side with the walker and transition to a cane as he progresses. Standard physical therapy and postoperative precautions as for a posterior approach hip replacement. Keep the abduction wedge between the legs when patient is in bed and also during sleep for 6 weeks postop. Patient will follow up with me in the office in approximately 12-14 days for wound check and to cut the suture and. Recommend 10 mg of Xarelto p.o. daily for 30 days for DVT prophylaxis. Please feel free to call our office at or via the hospital rope coiling machine operator [phone] for any orthopaedic questions or concerns.
== END 2017-11-21 18:10 ==
LOC: 2ND 06:19 → OR 06:19
PROVIDERS: ADMIT Orthopaedic Surgery; ATTEND Orthopaedic Surgery

== ENCOUNTER → 2018-01-03 08:45 | Outpatient (CLI) | payer MEDICARE, OTHER, SELFPAY ==
--- NOTE | 2018-01-03 08:47 | XR_ITS ---
XR hip LT 2-3V w/pelvis HISTORY: Follow-up hip replacement ITS.REASON: SYLVIA/ dos 11-19-17 ORDERING PHYSICIAN: Sridhar Schreiber MD PATIENT AGE: 72 years FINDINGS: Status post bipolar prosthesis placement of the left hip with good alignment. No evidence of orthopedic complications and no significant change compared to previous exam. Osteoarthritic changes are once again noted involving the right hip. IMPRESSION: No change status post left hip replacement
== END ==
PROVIDERS: PCP Family Medicine; Visit Provider Orthopaedic Surgery
DX: M16.12 Unilateral primary osteoarthritis, left hip (principal); Z96.649 Presence of unspecified artificial hip joint
CPT/HCPCS: 73502

== ENCOUNTER → 2018-02-14 09:19 | Outpatient (CLI) | payer MEDICARE, OTHER, SELFPAY ==
--- NOTE | 2018-02-14 09:22 | XR_ITS ---
XR hip LT 2-3V w/pelvis Ordering Physician: Sridhar Schreiber MD Patient Age: 72 years: Male HISTORY: ITS.REASON: LEFT total hip replacement dos 11/19/17 TECHNIQUE: AP and crosstable lateral view left hip along with AP pelvis. COMPARISON :Left hip study from 01/03/2018. FINDINGS Bipolar prosthesis at the left hip appears stable. Good alignment and position of the stem. Bipolar femoral head component articulates satisfactorily with the acetabulum. Stable overall appearance since 01/03/2018. The sclerosis and residual subchondral cystic changes about the left acetabulum evident reflecting prior degenerative changes here Right hip shows pronounced arthritic changes superior joint space. Sclerosis about this narrowed superior joint space. Subchondral cystic changes. . The sacrum is intact SI joints unremarkable degenerative changes lower L-spine noted. IMPRESSION Bipolar left hip replacement appear stable . Prominent arthritic changes right hip Arthritic changes lower L-spine
== END ==
PROVIDERS: PCP Family Medicine; Visit Provider Orthopaedic Surgery
DX: Z96.649 Presence of unspecified artificial hip joint (principal)
CPT/HCPCS: 73502

== ENCOUNTER → 2018-05-01 09:06 | Outpatient (CLI) | payer MEDICARE, OTHER, SELFPAY ==
--- NOTE | 2018-05-01 09:08 | XR_ITS ---
XR hip RT 2-3V w/pelvis HISTORY: ITS.REASON: right hip pain ORDERING PHYSICIAN: Sridhar Schreiber MD PATIENT AGE: 72 years COMPARISON: None FINDINGS: There are moderate to severe osteoarthritic changes of the right hip joint with loss of joint space, osteosclerosis, and osteophyte formation. Subarticular cystic change involves the femoral head No fracture or dislocation. No bony destructive process. There is a bipolar left hip prosthesis present. Incidental note made of spondylosis of the lower lumbar spine and lumbosacral junction with facet hypertrophic change IMPRESSION: Moderate to severe osteoarthritis of the right hip
== END ==
PROVIDERS: PCP Family Medicine; Visit Provider Orthopaedic Surgery
DX: M25.551 Pain in right hip (principal)
CPT/HCPCS: 73502

== ENCOUNTER → 2018-05-29 14:06 | Outpatient (CLI) | payer MEDICARE, OTHER, SELFPAY ==
[2018-05-29 14:10] LABS: Microscopic, Urine URINE MICROSCOPIC (MICROSCOPIC)
[2018-05-29 14:28] LABS: Appearance,Urine CLEAR (Clear); Bilirubin,Urine Negative (Negative); Blood, Urine Negative (Negative); Color,Urine YELLOW (Yellow); Glucose,Urine (UA) Negative (Negative); Ketones,Urine Negative (Negative); Leukocyte Esterase,Urine Negative (Negative); Nitrate,Urine Negative (Negative); Protein,Urine Negative (Negative); Urobilinogen,Urine 0.2 EU/dl (0.2)
[2018-05-29 15:00] LABS: Basophils # 0.1 K/mm3 (0-0.2); Basophils % 0.5 % (0.1-2.0); Eosinophils # 0.7 K/mm3 (0.0-0.4); Eosinophils % 6.9 % (0.1-12.0); Hematocrit 37.1 % (42.0-52.0); Hemoglobin 12.5 g/dL (14.1-18.0); Lymphocytes % 28.5 K/mm3 (10-50); Mean Corpuscular HGB Conc 33.8 g/dL (31.8-35.4); Mean Corpuscular Hemoglobin 27.4 pg (27.0-31.2); Mean Corpuscular Volume 81.1 fl (80-94); Mean Platelet Volume 7.5 fl (7.4-10.4); Monocytes # 0.6 K/mm3 (0.1-1.0); Monocytes % 5.6 % (1.7-9.3); Neutrophils # 6.2 K/mm3 (1.8-7.8); Neutrophils % 58.5 % (37.0-80.0); Platelet Count 214 K/mm3 (142-424); Red Blood Count 4.57 M/mm3 (4.60-6.20); Red Cell Distribution Width 14.9 % (11.5-17.5); White Blood Count 10.6 K/mm3 (4.8-10.8)
[2018-05-29 16:19] LABS: Alanine Aminotransferase 30 U/L (12-78); Albumin Level 3.8 gm/dL (3.4-5.0); Alkaline Phosphatase 99 U/L (46-116); Anion Gap 12.5 mEq/L (5-15); Aspartate Amino Transferase 23 U/L (15-37); Bilirubin,Total 0.5 mg/dL (0.2-1.0); Blood Urea Nitrogen 17 mg/dL (7-18); Calcium 8.9 mg/dL (8.5-10.1); Carbon Dioxide 29 mmol/L (21.0-32.0); Chloride 105 mmol/L (98-107); Creatinine,Serum 1.34 mg/dL (0.70-1.30); Estimated Glomerular Filt Rate 52 ml/min (>60); GFR (African American) 63 ML/MIN (>60); Globulin 3.9 gm/dl (1.3-3.2); Glucose 106 mg/dL (74-106); Potassium 3.5 mmoL/L (3.5-5.1); Sodium 143 mmol/L (136-145); Total Protein,Serum 7.7 gm/dL (6.4-8.2)
[2018-05-29 16:37] LABS: Bacteria,Urine Trace /lpf; Squamous Epithelial Cell,Urine Occasional #/hpf (0-5); WBC,Urine Occasional #/hpf (0-3)
== END ==
PROVIDERS: Visit Provider Orthopaedic Surgery
DX: Z01.818 Encounter for other preprocedural examination (principal); M16.11 Unilateral primary osteoarthritis, right hip
CPT/HCPCS: 36415; 80053; 81001; 85025; 86850

== ENCOUNTER 2018-06-03 07:27 | Inpatient (IN) ==
--- NOTE | 2018-06-03 11:38 | Progress Note ---
[facility] Anesthesia Checklist - Patient Identification Patient Identification: Arm Band, Verbal (Name & ) - Structural Data Admitted From: Home Planned Operative Procedure/s: Right SYLVIA posterior approach Consent for Planned Operative Procedure(s) Verified: Yes Verified Documents: Surgical Consent, History and Physical - NPO Status Verified Time NPO: 19:00 - Chart Verification Results Verified: CBC, BMP - Additional verifications Anesthesia Reactions: No - Airway Assessment C-Spine Mobility Assessed: Yes TMJ Mobility Assessed: Yes Dentition: Good Dentition ([place]) - Neurological Assessment Level of Consciousness: Awake Hx Seizures: No Numbness or tingling in extremities: Yes (Bilateral lower extremities) - Anesthesia Plan Anesthesia Risk discussed: Yes Anesthesia Plan: Verified ASA Class: III Anesthesia Type: Spinal [facility] History I have reviewed the patient's past medical history: Yes Medical History: Reports:: Deep Vein Thrombosis, Gastroesophageal Reflux Disease(GERD), Hyperlipidemia, Hypertension, Pulmonary Embolism Denies:: Cancer, Diabetes Mellitus Type 1, Diabetes Mellitus Type 2, Internal Pacemaker, MRSA, Myocardial Infarction, Seizures, Transient Ischemic Attacks (TIA) Other Medical History: Reports: Arthritis, Cataracts, Other (ROWAN uses CPAP, chronic lower back pain, obesity). Denies: Blood Transfusion Reaction Laterality Cases: Left: Total Hip Replacement Other Surgeries: Yes: Hernia Repair, Other. No: Pacemaker Amputation: No Fractures: No - *Social History Educational Level: Completed High School Smoking Status: Former smoker Tobacco Type: cigarettes # Packs/Day (cigarettes): 1 #Yrs smoked (if former smoker): 10 Alcohol Intake: never Substance Use Type: denies use Occupational Status: retired Housing: house Household Members: none - Psychiatric History Expresses thoughts of harming self/others: None Suicide Plan Description: No Plan *Family Hx:: Cancer, Heart Attack, Hypertension, Stroke
--- NOTE | 2018-06-03 14:21 | Progress Note ---
[facility] Anesthesia Record Part I Intake, IV Amount: 1,700 Estimated blood loss (mL): 600 Urine output (mL): 450 Blood Products used (#): none Blood Pressure: 130/75 SaO2: 94 Pulse Rate: 92 Respiratory Rate: 12 Temperature: 98.2 F Patient is:: Awake, Stable Stable to PACU at:: 14:15
--- NOTE | 2018-06-03 14:22 | Progress Note ---
[facility] Anesthesia Record Part II Discharge Time: 14:45 Destination: Medical Surgical Department PACU nurse assessment reviewed?: Yes Patient Condition:: Good Anesthesia Complications:: None
--- NOTE | 2018-06-03 15:12 | Operative Note ---
Pre-op Diagnosis:: Severe osteoarthritis, right hip Post-op Diagnosis:: Same Procedure performed:: Uncemented total hip arthroplasty, right hip Surgeon:: Sridhar Schreiber MD Applications Developer(s):: Tiera Menendez LAW RESEARCHER:: Other (Jonathon Ulrich) Anesthesia: spinal, LMA Estimated blood loss (mL): 600 Operative findings:: Intraoperatively, end-stage osteoarthritis of the hip joint was noted which was fitting with the preoperative x-ray findings. The femoral head was grossly arthritic and misshapen; osteophytes were noted on both the acetabulum and the femoral head. There was erosion of the acetabulum with subcortical cyst formation. The capsule was thickened and very vascular. Hip range of motion was markedly decreased. The bone quality was excellent. Operative note:: On the day of the procedure the patient and family were met in the preoperative area and the patient was positively identified. A physical examination was per formed and documented. The operative site was appropriately marked and initialed by me. I again reviewed the diagnosis, natural history and management options in detail including both nonsurgical and surgical. We discussed the proposed surgery, risks and benefits and alternatives in detail. The complications discussed include but are not limited to infection, injury to nerves, blood vessels and tendons, DVT and PE, fracture, limb length inequality, dislocation, implant malpositioning, implant failure, squeaking, loosening, acetabular wear, osteolysis, periprosthetic femur fracture, heterotopic ossification, abductor weakness and limp, incomplete relief of pain, likely need for further surgery in future including revision, anesthetic complications including heart attack, stroke and even . We also discussed the postoperative recovery and rehabilitation. He verbalized a good understanding and wished to proceed with the proposed surgery. The consent form was reviewed and signed. The patient was brought to the operating room and a general anesthesia was administered by the painting contractor. The patient was then positioned in the RIGHT lateral decubitus position with the LEFT hip facing up. We used Wixon hip positioner for this. All the bony prominences were appropriately padded. The LEFT hip was then prepped with isopropyl alcohol followed by chlorhexidine and draped in the usual sterile fashion. The entire operative team wore isolation suits and the Operating Room traffic was controlled. The skin incision was marked for a posterior approach to the hip joint. The perineum and the operative site were sealed off with Ioban drape. A preprocedure timeout was performed as per hospital protocol identifying the patient, correct surgery and correct site. Administration of prophylactic IV Ancef was confirmed with the anesthetic team. We decided not to give him tranexamic acid given his history of DVT and PE in the past. A posterior approach was used to the LEFT hip joint. The skin incision was made centering over the posterior part of the greater trochanter extending posteriorly in a curved fashion across the buttock. An electrocautery was used for hemostasis. The dissection was carried through the subcutaneous tissue down to the fascia lisa. The fascia lisa and gluteus fascia were split in line with the incision and a Charnley retractor was placed. The trochanteric bur sa was then removed with blunt dissection. The sciatic nerve was palpated and kept out of harm's way throughout the rest of the procedure. The hip joint was internally rotated and the fat over the short external rotators was cleared with a sponge. The short external rotator muscles were identified, a tag stitch was placed near their insertion and they were divided close to the trochanter with electrocautery. This exposed the joint capsule which was opened in a T-shaped incision after tag stitches were placed to both the leaves of the capsule. The capsule was noted to be very thickened and very vascular and we encountered a significant amount of bleeding from the soft tissues which we managed to control with electrocautery. Given the advanced arthritic changes and extensive osteophyte formation, it was somewhat difficult to dislocate the hip. After dislocating the hip, the femoral cutting guide was used to demarcate the appropriate level of the neck cut and the neck was osteotomized with an oscillating saw. Again removal of the femoral head was difficulty with a lot of adhesions around the femoral neck. Once removed, the femoral head was noted to be very deformed with extensive loss of cartilage. We then placed anterior and posterior Cobra retractors and proceeded to prepare the acetabulum. The soft tissue contents of the acetabulum including the ligamentum teres and the labrum were removed. We then proceeded to prepare the acetabulum. We started reaming the acetabulum starting with a size 45 reamer which were used for medialization. We then proceeded with reaming up to size 55 for a size 56 acetabular shell. However, the 56 size trial cup was not fitting firmly enough. Therefore we decided to ream up to 57 and use a 58 mm revision acetabular shell. Following a ppropriate reaming, we used a size 58 cup trial which could be seated firmly and was noted to be stable. We then removed the trial shell and placed a size 58 definitive acetabular revision shell at approximately 45 degrees inclination and 20 degrees of anteversion. The press-fit fixation was quite solid therefore we decided against placing any acetabular screws. We then placed the metal liner into the shell and impacted into place. We then placed a Ray-Karly gauze in the acetabulum and proceeded to prepare the proximal femur. We had to proceed carefully with this step given the marked stiffness of his hip. After removing the soft tissue from the medial aspect of the greater trochanter, a box osteotome was used to remove the bone from the proximal femur. A canal entry reamer was then used to open the femoral canal paying close attention to keep the reamer in a lateral position. Next we used the lateralizing drill. Next we performed femoral broaching starting with a small broach, making sure to lateralize the placement and maintain 15-20 degrees of femoral anteversion. The broaching was continued sequentially up to size 5 broach. We found this to be a very good fit without any rocking. We then finished the preparation of the proximal femur with a calcar reamer. We then performed a trial reduction using a size 5 broach, 132 angle neck and 0 mm head. However, we noted the hip to be somewhat loose and the leg slightly shorter compared to the opposite side. Therefore we trialed with 132 angle neck and +4 mm head. The hip was reduced and taken through range of motion and tested in adduction, internal and external rotation as well as with a shuck and posteriorly directed force on a flexed hip. We placed the hip at 90 degrees of flexion and then we could internally rotate to 60 degrees with no evidence of instability. Also in the sleep position of approximately 20 degrees of adduction and internal rotation of 60 degrees the hip was still stable. We also noted that the limb lengths were equal with these components. As the hip was noted to be very stable with these trial components throughout the range of motion, we decided on this as our final construct. Next the trial components were removed and the femoral canal was irrigated with the pulse lavage and suctioned out. The definitive femoral stem was then placed and seated to the appropriate level. This gave us a very good fit without any play whatsoever. We then irrigated and dried the Duffy taper and then placed the definitive MDM femoral head assembly on the stem and tapped into place. The Ray-Karly was removed from the acetabulum and hip joint irrigated with the pulse lavage. The hip was then reduced and taken through range of motion and noted to be very stable. The limb length was also well corrected. The hip joint was then soaked with dilute Betadine (0.35 percent) solution for 3 minutes followed by suctioning of the solution and pulsatile lavage with the 1 L of normal saline. At this point, I also injected the capsule and soft tissue with the local anesthetic cocktail (0.5 percent bupivacaine 200 mg +10 mg of morphine +600 g of epinephrine +750 mg of cefuroxime +30 mg of ketorolac diluted in normal saline to make up a total volume of 120 mL). The hip joint was again thoroughly irrigated with the pulse lavage and good hemostasis was confirmed before proceeding with wound closure. The capsule was closed with #1 Vicryl sutures followed by the reattachment of the external rotators to the greater trochanter with #1 Vicryl sutures. Next the fascia lisa and gluteus fascia were closed with #1 Vicryl sutures. We placed two suction drains- one deep to the fascia lisa and other superficial in the subcu tissue during the wound closure. The wound was then finally irrigated with pulse lavage and suctioned dry. Next the subcutaneous tissue was closed with 2-0 Vicryl sutures. The skin was closed with subcuticular 4-0 Monocryl sutures, Dermabond and Steri-Strips. Sterile dressings were applied consisting of Xeroform, 4 x 4 and A[address]s secured in place with adhesive tape. The patient was then transferred from the operating table onto the bed. The leg lengths were again checked in supine position and noted to be equal. An abduction foam was placed between the legs. The patient was then reversed from the anesthetic and transported to the postoperative recovery area in a stable condition. Patient tolerated the procedure well and there were no immediate complications. The swab, needle and instrument counts were correct according to the scrub team at the end of the procedure. Portable x-rays of the pelvis AP view and lateral view of the LEFT hip were obtained in the recovery area which showed satisfactory placement of the components and no evident complications. Postoperatively, institute and continue standard precautions for a posterior hip approach. Patient can be mobilized weightbearing as tolerated with the help of physical therapy and commence standard physical therapy for a posterior approach on the first postoperative day. Implants: The following Felch implants were used- Brannon Accolade 2 press-fit femoral stem, 132 degree neck angle, size 6 Trident titanium hemispherical shell, 58 mm 46 mm inner diameter MDM cementless liner Nondenominational MDM X3 insert 28/52, size 46F Biolox delta ceramic head V 40 femoral head, size 28 mm x +4 mm neck length Nondenominational Gap plate screws, 6.5 mm x 25 mm x2 Industry c s s representative: Kahlil Dobbins from [employer]. 5 cc osteo-boost beads with 1 g of vancomycin Repositioning of the cup Acetabular screws Condition: stable Disposition: floor Specimens:: None Complications:: None
--- NOTE | 2018-06-03 16:22 | Pharmacy Consult Notes ---
[facility] Pharmacy VTE Monitoring - Patient Demographics Admission date: 06/03/18 Report Date: 06/03/18 Time: 16:22 Allergies/Adverse Reactions: Patient Allergies No Known Allergies Allergy (Verified 05/01/18 09:33) Height: 1.88 m Weight: 136.219 kg - Prophylaxis VTE Prophylaxis Ordered?: Yes Types of VTE Prophylaxis: IPCS Knee High
--- NOTE | 2018-06-03 16:36 | Progress Note ---
Internal Medicine - PN: Subj *Date: 06/03/18 *Time: 16:33 Interval history: 72 year old male s/p total right hip arthroplasty today. Patient is in attendance with son and significant other. We will follow throughout hospitalization. No discharge date as of yet but he will go to [facility] for rehabilitation care. Exam Vital signs and Labs for Last 24 Hours: Temp Pulse Resp BP Pulse Ox 97.8 F 85 18 121/55 L 96 06/03/18 16:10 06/03/18 16:10 06/03/18 16:10 06/03/18 16:10 06/03/18 16:10 Laboratory Results - last 24 hr 06/03/18 08:38: Blood Type A Positive, Antibody Screen Negative 06/03/18 09:20: Urine Color Yellow, Urine Appearance Clear, Urine pH 6.0, Ur Specific [place] 1.020, Urine Protein Negative, Urine Glucose (UA) Negative, Urine Ketones Negative, Urine Blood Negative, Urine Nitrate Negative, Urine Bilirubin Negative, Urine Urobilinogen 0.2, Ur Leukocyte Esterase Negative, Urine RBC None, Urine WBC 3-5, Ur Squamous Epith Cells None, Urine Bacteria 3+ A I & O for Last 24 hours: Intake & Output 06/01/18 06/02/18 06/02/18 06/03/18 00:59 00:59 23:59 23:59 Intake Total 1700 / 1700 Balance 1700 / 1700 Weight 300 lb 5 oz Narrative: resting comfortably supine in bed, A&O to person, place, time and situation, PERRLA, equal director of public health, pedal presses, equal sensation, color, and temperature roshan LEs, lung head clear, heart tones RRR, INC dressing to right hip CDI, accordion drain with small amounts of sanguineous drainage,
--- NOTE | 2018-06-03 17:51 | Progress Note ---
Subjective Date: 06/03/18 Time: 16:45 Principal diagnosis: Status post total hip arthroplasty, right Interval history: Patient is status post right total hip arthroplasty post op day #0. Patient is lying down in bed. Says he is doing well and reports no problems. Patient has minimal pain and says it's well-controlled with medication. No no complaints of of any nausea or vomiting. Patient says he is hungry and wants to eat something. No history of any distal tingling or numbness. PN: Obj Ex Vital signs: Temp Pulse Resp BP Pulse Ox 97.8 F 80 18 123/55 L 96 06/03/18 16:30 06/03/18 16:30 06/03/18 16:30 06/03/18 16:30 06/03/18 16:30 Narrative: Exam General appearance: alert, active, awake, no acute distress Eyes: normal exam ENT: Mucous membranes are dry Neck: normal inspection Cardiovascular: regular rate & rhythm, normal peripheral pulses Respiratory: No respiratory distress noted, speaks in full sentences ABD: soft and non tender Neuro: alert,, awake, oriented x 3 Psych: Appropriate mood and affect Genitourinary: Catheter in situ. On examination of the lower extremities he is in an abduction form; the limb lengths are equal. On examination of the right hip the dressings are clean, dry and intact. The drains are in place and there is minimal drainage. Distal pulses are 1+. Distal sensation is intact to light touch throughout. No motor deficits noted distally. Diagnostic imaging: Postoperative check x-ray satisfactory with good alignment of the right total hip arthroplasty. Radiologically the limb lengths are equal. No complications noted on the x-ray - Urinary Catheter Management Coude Cath placed during this visit: yes Urethral indwelling: Yes Reason for continuing: Surgical procedure Insertion date: 06/03/18 Insertion time: 09:20 Burnette Cath placed during this visit: no Progress Note: A&P (1) Primary osteoarthritis of right hip Status: Acute Current Visit: Yes (2) History of total right hip arthroplasty Status: Acute Current Visit: Yes Assessment and Plan for All Diagnoses:: I reviewed the clinical, x-ray and operative findings and procedure performed with the patient and family. Patient is doing very well and reports no problems. For PT evaluation and mobilization weightbearing as tolerated on the right side with a walker on postop day 1. DVT prophylaxis with Xarelto for 5 weeks. Continue abduction form when in bed and continue standard precautions for the posterior approach hip replacement. Continue incentive spirometry, IV fluids and BENCH LOOM WEAVER/as needed pain medication. Case management consult regarding discharge planning. Medical management as per Dr. Sims.
[2018-06-04 07:02] LABS: Basophils % 0.1 % (0.1-2.0); Eosinophils % 0.2 % (0.1-12.0); Hematocrit 30.7 % (42.0-52.0); Hemoglobin 9.6 g/dL (14.1-18.0); Lymphocytes # 1.4 K/mm3 (0.7-4.5); Lymphocytes % 10.8 K/mm3 (10-50); Mean Corpuscular HGB Conc 31.1 g/dL (31.8-35.4); Mean Corpuscular Hemoglobin 25.8 pg (27.0-31.2); Mean Corpuscular Volume 82.9 fl (80-94); Mean Platelet Volume 7.6 fl (7.4-10.4); Monocytes # 0.9 K/mm3 (0.1-1.0); Monocytes % 7.2 % (1.7-9.3); Neutrophils # 10.3 K/mm3 (1.8-7.8); Neutrophils % 81.6 % (37.0-80.0); Platelet Count 197 K/mm3 (142-424); Red Blood Count 3.71 M/mm3 (4.60-6.20); Red Cell Distribution Width 14.9 % (11.5-17.5); White Blood Count 12.6 K/mm3 (4.8-10.8)
--- NOTE | 2018-06-04 07:07 | Progress Note ---
Internal Medicine - PN: Subj *Date: 06/04/18 *Time: 07:04 Interval history: Patient's only complaint this morning is discomfort from the Burnette catheter. He used his SHEET TESTER pump 3 times overnight and was given intravenous Toradol once. Exam Vital signs and Labs for Last 24 Hours: Temp Pulse Resp BP Pulse Ox 98.3 F 77 18 106/60 L 96 06/04/18 04:00 06/04/18 04:00 06/04/18 04:00 06/04/18 04:00 06/04/18 04:00 Laboratory Results - last 24 hr 06/03/18 08:38: Blood Type A Positive, Antibody Screen Negative 06/03/18 09:20: Urine Color Yellow, Urine Appearance Clear, Urine pH 6.0, Ur Specific [place] 1.020, Urine Protein Negative, Urine Glucose (UA) Negative, Urine Ketones Negative, Urine Blood Negative, Urine Nitrate Negative, Urine Bilirubin Negative, Urine Urobilinogen 0.2, Ur Leukocyte Esterase Negative, Urine RBC None, Urine WBC 3-5, Ur Squamous Epith Cells None, Urine Bacteria 3+ A I & O for Last 24 hours: Intake & Output 06/01/18 06/02/18 06/03/18 06/04/18 12:59 11:59 11:59 11:59 Intake Total 2249 / 2249 Output Total 1515 / 1515 Balance 734 / 734 Weight 300 lb 5 oz Narrative: Patient is awake and alert. Lungs are clear to auscultation. Heart has a regular rate and rhythm. Abdomen is soft nontender. He is neurovascularly i ntact in the right foot. Bandages in place over the hip incision. Assessment and Plan (1) Primary osteoarthritis of right hip Current visit: Yes Status: Acute Category: Medical Code(s): M16.11 - Unilateral primary osteoarthritis, right hip (2) History of total right hip arthroplasty Current visit: Yes Status: Acute Category: Surgical Code(s): Z96.641 - Presence of right artificial hip joint (3) CAD (coronary artery disease) Current visit: No Status: Chronic Category: Medical Code(s): I25.10 - Atherosclerotic heart disease of [place] coronary artery without angina pectoris (4) Hypertension Current visit: No Status: Chronic Category: Medical Code(s): I10 - Essential (primary) hypertension - Assessment and plan all Dx Assessment and Plan for all problems:: Discontinue Burnette catheter. PT eval today. Begin discharge process by getting precertification through patient's insurance. If all of the steps occur in a timely fashion patient could possibly be discharged tomorrow. He will need custodial facility and would prefer [facility] as this is where he rehabbed earlier in the year after his left hip replaced
[2018-06-04 07:11] LABS: Anion Gap 11.1 mEq/L (5-15); Calcium 8.2 mg/dL (8.5-10.1); Potassium 4.1 mmoL/L (3.5-5.1)
[2018-06-04 10:50] LABS: Microscopic, Urine URINE MICROSCOPIC (MICROSCOPIC)
[2018-06-04 10:54] LABS: Appearance,Urine CLOUDY (Clear); Bilirubin,Urine Negative (Negative); Blood, Urine 3+ (Negative); Color,Urine YELLOW (Yellow); Glucose,Urine (UA) Negative (Negative); Ketones,Urine Negative (Negative); Leukocyte Esterase,Urine Negative (Negative); Protein,Urine 2+ (Negative); Specific Gravity, Urine 1.025 (1.005-1.030); Urobilinogen,Urine 0.2 EU/dl (0.2)
[2018-06-04 12:25] LABS: Bacteria,Urine Trace /lpf
--- NOTE | 2018-06-04 19:25 | Progress Note ---
Subjective Date: 06/04/18 Time: 18:45 Principal diagnosis: Status post total hip arthroplasty, right Interval history: Patient is status post right total hip arthroplasty post op day #1. Patient is sitting up in the bed. He says says he is not feeling so good no and reports a fever. He also reports frequency of urine and dysuria. His catheter was removed earlier today. He reports very little pain in his right hip. He says he has not used the INVENTORY TECHNICIAN much. He also says he is not eating much because of not feeling so well. No history of any distal tingling or numbness. He spiked a temperature this afternoon and Dr. Sims ordered workup to rule out any source of infection. PN: Obj Ex Vital signs: Temp Pulse Resp BP Pulse Ox 102.1 F H 100 H 18 121/73 95 06/04/18 18:00 06/04/18 18:00 06/04/18 18:00 06/04/18 18:00 06/04/18 19:02 Narrative: Laboratory Results - last 24 hr 06/04/18 06:10: WBC 12.6 H, RBC 3.71 L, Hgb 9.6 L, Hct 30.7 L, MCV 82.9, MCH 25.8 L, MCHC 31.1 L, RDW 14.9, Plt Count 197, MPV 7.6, Neut % (Auto) 81.6 H, Lymph % (Auto) 10.8, Jones % (Auto) 7.2, Eos % (Auto) 0.2, Baso % (Auto) 0.1, Neut # (Auto) 10.3 H, Lymph # (Auto) 1.4, Jones # (Auto) 0.9, Eos # (Auto) 0.0, Baso # (Auto) 0.0 06/04/18 06:10: Sodium 142, Potassium 4.1, Chloride 106, Carbon Dioxide 29, Anion Gap 11.1, BUN 18, Creatinine 1.17, Estimated Creat Clear 107, Estimated GFR 61, Est GFR ( Amer) 74, Glucose 165 H, Calcium 8.2 L 06/04/18 10:45: Urine Color Yellow, Urine Appearance Cloudy, Urine pH 6.0, Ur Specific [place] 1.025, Urine Protein 2+, Urine Glucose (UA) Negative, Urine Ketones Negative, Urine Blood 3+, Urine Nitrate Negative, Urine Bilirubin Negative, Urine Urobilinogen 0.2, Ur Leukocyte Esterase Negative, Urine RBC 10- 20, Urine WBC 3-5, Ur Squamous Epith Cells None, Urine Bacteria Trace Intake & Output 06/02/18 06/03/18 06/04/18 06/05/18 11:59 11:59 11:59 11:59 Intake Total 3933 / 3933 1374 / 1374 Output Total 1964 / 1964 Balance 1967 1374 / 1374 Weight 300 lb 5 oz Exam General appearance: alert, active, awake, no acute distress Cardiovascular: regular rate & rhythm, normal peripheral pulses Respiratory: No respiratory distress noted, speaks in full sentences ABD: soft and non tender Neuro: alert, awake, oriented x 3 Psych: Appropriate mood and affect for his situation On examination of the lower extremities the limb lengths are equal. Thigh and calf are soft and nontender. On examination of the right hip the dressings are clean, dry and intact. No soakage of dressings noted. Distal pulses are 2+. Distal sensation is intact to light touch throughout. No motor deficits noted distally. Drains, total 80 cc since surgery. - Urinary Catheter Management Coude Cath placed during this visit: yes Urethral indwelling: Yes Reason for continuing: Surgical procedure Insertion date: 06/03/18 Insertion time: 09:20 Burnette Cath placed during this visit: no Progress Note: A&P (1) Primary osteoarthritis of right hip Status: Acute (2) History of total right hip arthroplasty Status: Acute (3) CAD (coronary artery disease) Status: Chronic (4) Hypertension Status: Chronic Assessment and Plan for All Diagnoses:: I reviewed the clinical and x-ray findings and procedure performed with the patient. I have given him a paper copy of his postoperative x-rays. Patient spiked a temperature this afternoon and is being evaluated for any source of infection. It is very unlikely that it is related to his hip replacement. Most probable source of any infection would be urinary tract especially given his symptoms of dysuria and frequency. I have ordered a urine culture and sensitivity. Continue physical therapy and mobilization weightbearing as tolerated on the right side with the walker. Continue DVT prophylaxis. Continue abduction form when in bed and continue standard precautions for the posterior approach hip replacement. Discontinue IV fluids, INVENTORY TECHNICIAN. Case management consult regarding discharge planning. Medical management as per Dr. Sims.
[2018-06-05 06:28] LABS: Anion Gap 10.6 mEq/L (5-15); Calcium 7.8 mg/dL (8.5-10.1); Potassium 3.6 mmoL/L (3.5-5.1)
[2018-06-05 06:35] LABS: Hematocrit 27.6 % (42.0-52.0); Mean Corpuscular HGB Conc 32.8 g/dL (31.8-35.4); Mean Corpuscular Hemoglobin 26.8 pg (27.0-31.2); Mean Corpuscular Volume 81.8 fl (80-94); Mean Platelet Volume 7.4 fl (7.4-10.4); Neutrophils % 62.7 % (37.0-80.0); Platelet Count 179 K/mm3 (142-424); Red Blood Count 3.37 M/mm3 (4.60-6.20); Red Cell Distribution Width 14.9 % (11.5-17.5); White Blood Count 8.7 K/mm3 (4.8-10.8)
[2018-06-05 06:36] LABS: Basophils % 0.1 % (0.1-2.0); Eosinophils % 11.5 % (0.1-12.0); Lymphocytes # 1.7 K/mm3 (0.7-4.5); Lymphocytes % 19.5 % (10-50); Monocytes # 0.5 K/mm3 (0.1-1.0); Monocytes % 6.2 % (1.7-9.3); Neutrophils # 5.5 K/mm3 (1.8-7.8)
--- NOTE | 2018-06-05 06:47 | Discharge Summary ---
General - General Admission date:: 06/03/18 Discharge date: 06/06/18 HPI HPI: 72-year-old male admitted to the hospital after undergoing right hip replacement. Hospital Course Hospital Course: Patient underwent right hip replacement on June 03, [address] Schreiber. Postoperative course was uneventful. On June 04 patient's [employer] pump was discontinued in favor of oral as needed medications. Physical therapy was consulted. The patient ambulated independently to the chair. Pain was well controlled with oral narcotics. Patient had had left hip replacement earlier in the year. There was a recommendation for assisted from physical therapy. Patient preferred [facility]. Precertification was sought to the patient's insurance. Once that was obtained patient was transferred to [facility]. Patient was given home medications while hospitalized. He will need Eliquis for 5 weeks for DVT prophylaxis after hip replacement surgery. Patient had 2 urine cultures. The first grew no organisms and the second grew a small amount of a gram negative sharon. Patient will be placed on Bactrim DS at discharge Mental status: Alert and oriented x3 Prognosis: Good Rehab potential: Good Objective Vital signs: Temp Pulse Resp BP Pulse Ox 99.0 F 95 H 16 110/67 90 L 06/05/18 04:00 06/05/18 04:00 06/05/18 04:00 06/05/18 04:00 06/05/18 04:00 Results Labs on day of discharge: Labs from last 24 hours 06/05/18 06/05/18 06/04/18 06:10 06:10 10:45 WBC 8.7 D RBC 3.37 L Hgb 9.0 L Hct 27.6 L MCV 81.8 MCH 26.8 L MCHC 32.8 RDW 14.9 Plt Count 179 MPV 7.4 Neut % (Auto) 62.7 Lymph % (Auto) 19.5 Sutton % (Auto) 6.2 Eos % (Auto) 11.5 Baso % (Auto) 0.1 Neut # (Auto) 5.5 Lymph # (Auto) 1.7 Sutton # (Auto) 0.5 Eos # (Auto) 1.0 H Baso # (Auto) 0.0 Sodium 139 Potassium 3.6 Chloride 103 Carbon Dioxide 29 Anion Gap 10.6 BUN 16 Creatinine 0.99 Estimated Creat Clear 125 Estimated GFR 74 Est GFR ( Amer) 89 D Glucose 138 H Calcium 7.8 L Urine Color Yellow Urine Appearance Cloudy Urine pH 6.0 Ur Specific Townsend 1.025 Urine Protein 2+ Urine Glucose (UA) Negative Urine Ketones Negative Urine Blood 3+ Urine Nitrate Negative Urine Bilirubin Negative Urine Urobilinogen 0.2 Ur Leukocyte Esterase Negative Urine RBC 10-20 Urine WBC 3-5 Ur Squamous Epith Cells None Urine Bacteria Trace 06/04/18 06/04/18 06:10 06:10 WBC 12.6 H RBC 3.71 L Hgb 9.6 L Hct 30.7 L MCV 82.9 MCH 25.8 L MCHC 31.1 L RDW 14.9 Plt Count 197 MPV 7.6 Neut % (Auto) 81.6 H Lymph % (Auto) 10.8 Sutton % (Auto) 7.2 Eos % (Auto) 0.2 Baso % (Auto) 0.1 Neut # (Auto) 10.3 H Lymph # (Auto) 1.4 Sutton # (Auto) 0.9 Eos # (Auto) 0.0 Baso # (Auto) 0.0 Sodium 142 Potassium 4.1 Chloride 106 Carbon Dioxide 29 Anion Gap 11.1 BUN 18 Creatinine 1.17 Estimated Creat Clear 107 Estimated GFR 61 Est GFR ( Amer) 74 Glucose 165 H Calcium 8.2 L Urine Color Urine Appearance Urine pH Ur Specific Townsend Urine Protein Urine Glucose (UA) Urine Ketones Urine Blood Urine Nitrate Urine Bilirubin Urine Urobilinogen Ur Leukocyte Esterase Urine RBC Urine WBC Ur Squamous Epith Cells Urine Bacteria Preliminary micro results at discharge 06/03/18 09:20 Urine Culture - Preliminary Urine,Catheterized NO GROWTH AFTER 24 HOURS DS: Diagnosis - Discharge Diagnosis (1) Primary osteoarthritis of right hip Status: Acute (2) History of total right hip arthroplasty Status: Acute (3) CAD (coronary artery disease) Status: Chronic (4) Hypertension Status: Chronic Discharge Plan - Patient Discharge Instructions ACTIVITY: Continue current activity DIET: continue same diet Patient Instructions: How to Care for a Surgical Wound, DI for Hip Fracture, DI for Urinary Tract Infection (UTI), DI for Surgical Site Infection - Follow up Plan Follow up with: Sridhar Schreiber MD [Staff Physician] - 2 weeks Disposition: [facility] Home Medications: Home Medications Medication Instructions Recorded Confirmed Type Amlodipine Besylate [Norvasc 10mg 10 mg PO DAILY 08/02/17 06/03/18 History tablet] Lisinopril [Lisinopril 40mg Tablet] 40 mg PO DAILY 08/02/17 06/03/18 History Ferrous Sulfate 325 mg PO BID 11/14/17 06/03/18 History Mupirocin Calcium [Bactroban Nasal 1 applic INTRANASAL BID 06/03/18 06/03/18 History 2% UD Oint 1gm] Fluoxetine HCl [Prozac] 20 mg PO DAILY 06/04/18 06/04/18 History Gabapentin [Gabapentin 300mg Cap] 900 mg PO BID 06/04/18 06/04/18 History Simvastatin [Zocor] 20 mg PO HS 06/04/18 06/04/18 History hydroCHLOROthiazide [HCTZ 25mg 6.25 mg PO DAILY 06/04/18 06/04/18 History tab] Prescriptions/Medication Reconciliation: New Oxycodone HCl [Oxaydo 5mg Tab] 5 mg PO Q4HP PRN #60 tab PRN Reason: Moderate To Severe Pain Apixaban [Eliquis] 5 mg PO BID 35 Days #70 tab Sulfamethoxazole/Trimethoprim [Bactrim DS tablet] 1 each PO BID #10 tablet Continue Ferrous Sulfate 325 mg PO BID Mupirocin Calcium [Bactroban Nasal 2% UD Oint 1gm] 1 applic INTRANASAL BID Simvastatin [Zocor] 20 mg PO HS Gabapentin [Gabapentin 300mg Cap] 900 mg PO BID Amlodipine Besylate [Norvasc 10mg tablet] 10 mg PO DAILY Lisinopril [Lisinopril 40mg Tablet] 40 mg PO DAILY hydroCHLOROthiazide [HCTZ 25mg tab] 6.25 mg PO DAILY Fluoxetine HCl [Prozac] 20 mg PO DAILY Discontinued Chlorhexidine Gluconate 1 applic TOPICAL DIRECTED
--- NOTE | 2018-06-05 17:32 | Progress Note ---
Subjective Date: 06/05/18 Time: 16:15 Principal diagnosis: Status post total hip arthroplasty, right PN: Obj Ex Vital signs: Temp Pulse Resp BP Pulse Ox 100.0 F H 78 20 104/58 L 92 L 06/05/18 08:00 06/05/18 15:55 06/05/18 15:55 06/05/18 15:55 06/05/18 15:55 - Urinary Catheter Management Coude Cath placed during this visit: yes Urethral indwelling: Yes Insertion date: 06/03/18 Insertion time: 09:20 Burnette Cath placed during this visit: no Progress Note: A&P (1) Primary osteoarthritis of right hip Status: Acute Current Visit: Yes (2) History of total right hip arthroplasty Status: Acute Current Visit: Yes (3) CAD (coronary artery disease) Status: Chronic Current Visit: No (4) Hypertension Status: Chronic Current Visit: No
[2018-06-06 06:56] LABS: Basophils % 0.1 % (0.1-2.0); Eosinophils # 1.2 K/mm3 (0.0-0.4); Eosinophils % 11.8 % (0.1-12.0); Hematocrit 27.7 % (42.0-52.0); Hemoglobin 8.9 g/dL (14.1-18.0); Lymphocytes # 1.7 K/mm3 (0.7-4.5); Lymphocytes % 17.3 % (10-50); Mean Corpuscular HGB Conc 32.3 g/dL (31.8-35.4); Mean Corpuscular Hemoglobin 26.4 pg (27.0-31.2); Mean Corpuscular Volume 81.6 fl (80-94); Mean Platelet Volume 7.3 fl (7.4-10.4); Monocytes # 0.5 K/mm3 (0.1-1.0); Monocytes % 5.1 % (1.7-9.3); Neutrophils # 6.6 K/mm3 (1.8-7.8); Neutrophils % 65.8 % (37.0-80.0); Platelet Count 177 K/mm3 (142-424); Red Blood Count 3.39 M/mm3 (4.60-6.20); Red Cell Distribution Width 15.1 % (11.5-17.5)
[2018-06-06 07:00] LABS: Anion Gap 9.3 mEq/L (5-15); Calcium 8.1 mg/dL (8.5-10.1); Potassium 3.3 mmoL/L (3.5-5.1)
--- NOTE | 2018-06-06 07:09 | Progress Note ---
Internal Medicine - PN: Subj *Date: 06/06/18 *Time: 07:06 Interval history: Patient has no complaints and states he feels well. Discharge was delayed yesterday due to fevers. Patient has now been without a fever for almost 24 hours. He has been ambulating. Pain is controlled. He denies dysuria. He did have a small cough and a sputum culture was collected which has grown a small amount of gram-positive cocci in clusters. Patient denies shortness of breath and he is using his incentive spirometer Exam Vital signs and Labs for Last 24 Hours: Temp Pulse Resp BP Pulse Ox 99.1 F 85 18 120/64 92 L 06/06/18 04:00 06/06/18 04:00 06/06/18 04:00 06/06/18 04:00 06/06/18 04:00 Laboratory Results - last 24 hr 06/06/18 06:23: WBC 10.0, RBC 3.39 L, Hgb 8.9 L, Hct 27.7 L, MCV 81.6, MCH 26.4 L, MCHC 32.3, RDW 15.1, Plt Count 177, MPV 7.3 L, Neut % (Auto) 65.8, Lymph % (Auto) 17.3, Tompkins % (Auto) 5.1, Eos % (Auto) 11.8, Baso % (Auto) 0.1, Neut # (Auto) 6.6, Lymph # (Auto) 1.7, Tompkins # (Auto) 0.5, Eos # (Auto) 1.2 H, Baso # (Auto) 0.0 06/06/18 06:23: Sodium 139, Potassium 3.3 L, Chloride 103, Carbon Dioxide 30, Anion Gap 9.3, BUN 14, Creatinine 0.89, Estimated Creat Clear 125, Estimated GFR 84, Est GFR ( Amer) 101, Glucose 137 H, Calcium 8.1 L I & O for Last 24 hours: Intake & Output 06/03/18 06/04/18 06/05/18 06/06/18 11:59 11:59 11:59 11:59 Intake Total 3933 / 3933 1614 / 1614 900 / 900 Output Total 1964 / 1964 940 / 940 675 / 675 Balance 1967 674 / 674 225 / 225 Weight 300 lb 5 oz Microbiology Reports for the Last 24 Hours: Microbiology 06/04/18 19:33 Urine,Random Urine Culture - Preliminary NO GROWTH AFTER 24 HOURS 06/05/18 17:40 Sputum - Expectorated Sputum Gram Stain - Final 06/04/18 10:45 Urine,Clean Catch Urine Culture - Preliminary NO GROWTH AFTER 24 HOURS 06/03/18 09:20 Urine,Catheterized Urine Culture - Final NO GROWTH AFTER 48 HOURS Narrative: He looks well. He is not requiring supplemental oxygen. No cough is heard or witnessed during the exam. Oropharynx is moist and clear. Neck is without lymphadenopathy. Heart has a regular rate and rhythm. Lungs are clear to auscultation. Abdomen is obese and soft Assessment and Plan (1) Primary osteoarthritis of right hip Current visit: Yes Status: Acute Category: Medical Code(s): M16.11 - Unilateral primary osteoarthritis, right hip (2) History of total right hip arthroplasty Current visit: Yes Status: Acute Category: Surgical Code(s): Z96.641 - Presence of right artificial hip joint (3) CAD (coronary artery disease) Current visit: No Status: Chronic Category: Medical Code(s): I25.10 - Atherosclerotic heart disease of augustine coronary artery without angina pectoris (4) Hypertension Current visit: No Status: Chronic Category: Medical Code(s): I10 - Essential (primary) hypertension (5) Cough Current visit: Yes Status: Acute Category: Medical Code(s): R05 - Cough - Assessment and plan all Dx Assessment and Plan for all problems:: 1. Await orthopedic evaluation this morning to determine possibility for discharge 2. Patient received Rocephin after his sputum culture showing a light growth of the this will be followed up on with appropriate use of antibiotics should sputum culture remain positive
--- NOTE | 2018-06-06 13:19 | Progress Note ---
Subjective Date: 06/06/18 Time: 12:30 Principal diagnosis: Status post total hip arthroplasty, right PN: Obj Ex Vital signs: Temp Pulse Resp BP Pulse Ox 98.5 F 92 H 20 120/59 L 93 L 06/06/18 08:00 06/06/18 08:00 06/06/18 08:00 06/06/18 08:00 06/06/18 08:00 Narrative: Laboratory Results - last 24 hr 06/06/18 06:23: WBC 10.0, RBC 3.39 L, Hgb 8.9 L, Hct 27.7 L, MCV 81.6, MCH 26.4 L, MCHC 32.3, RDW 15.1, Plt Count 177, MPV 7.3 L, Neut % (Auto) 65.8, Lymph % (Auto) 17.3, Sebastian % (Auto) 5.1, Eos % (Auto) 11.8, Baso % (Auto) 0.1, Neut # (Auto) 6.6, Lymph # (Auto) 1.7, Sebastian # (Auto) 0.5, Eos # (Auto) 1.2 H, Baso # (Auto) 0.0 06/06/18 06:23: Sodium 139, Potassium 3.3 L, Chloride 103, Carbon Dioxide 30, Anion Gap 9.3, BUN 14, Creatinine 0.89, Estimated Creat Clear 125, Estimated GFR 84, Est GFR ( Amer) 101, Glucose 137 H, Calcium 8.1 L Microbiology 06/05/18 17:00 Miscellaneous Reference Culture - Preliminary Catheter Tip - Other 06/05/18 17:00 Miscellaneous Reference Culture - Preliminary Catheter Tip - Other 06/05/18 17:40 Gram Stain - Final Sputum - Expectorated Sputum Sputum Culture - Preliminary 06/04/18 10:45 Urine Culture - Preliminary Urine,Clean Catch Gram Negative Rods 06/04/18 19:33 Urine Culture - Preliminary Urine,Random NO GROWTH AFTER 24 HOURS 06/03/18 09:20 Urine Culture - Final Urine,Catheterized NO GROWTH AFTER 48 HOURS Intake & Output 06/04/18 06/05/18 06/06/18 06/07/18 11:59 11:59 11:59 11:59 Intake Total 3933 / 3933 1614 / 1614 900 / 900 Output Total 1964 / 1964 940 / 940 675 / 675 Balance 1967 / 1967 674 / 674 225 / 225 Weight 300 lb 5 oz Patient is status post right [total hip arthroplasty] post op day #3. Patient is [sitting out in the chair]. Says is doing well and reports no problems. Patient has minimal pain and says it's well-controlled with medication. No history of any nausea or vomiting. No history of any cough, chest pain, shortness of breath or palpitations. Patient says [she] is eating and drinking well. No history of any distal tingling or numbness. Exam General appearance: alert, active, awake, no acute distress [Eyes: normal exam ENT: normal exam Neck: normal inspection] Cardiovascular: regular rate & rhythm, normal peripheral pulses Respiratory: [clear to auscultation, normal breath sounds] [no respiratory distress noted, speaks in full sentences] ABD: soft and non tender Neuro: alert,, awake, [oriented x 3] [Psych: normal mood and affect] [Genitourinary: Catheter in situ.] On examination of the lower extremities the limb lengths are equal. Thigh and calf are soft and nontender. On examination of the [LEFT hip] the dressings are clean, dry and intact. [The dressings were changed by me. There is a minimal of soakage of the dressings. The wound looks clean and healthy.] [No evidence of any infection or other complications noted.] Distal pulses are 2+. Distal sensation is intact to light touch throughout. No motor deficits noted distally. I reviewed the clinical [and operative] findings and [procedure performed] [progress] with the patient [and family]. Patient is doing very well and reports no problems. Patient is mobilizing well weightbearing as tolerated on the [LEFT] side with the walker and to continue the same. Continue DVT prophylaxis. Continue abduction pillow when in bed and continue standard precautions for the posterior approach hip replacement. [Discontinue IV fluids, [employer].] [Discontinue the urinary catheter.] [Case management consult regarding discharge planning.] Recommend DVT prophylaxis for 5 weeks postop- the appropriate agents include Lovenox, Aspirin 325 mg, Xarelto (Rivaroxaban), Eliqu is (apixaban) and Coumadin. Follow-up in my office in 2 weeks time with check x-ray. Please feel free to call our office at [phone] for any orthopaedic questions. Medical management as per Dr. Sims. - Urinary Catheter Management Coude Cath placed during this visit: yes Urethral indwelling: Yes Insertion date: 06/03/18 Insertion time: 09:20 Burnette Cath placed during this visit: no Progress Note: A&P (1) Primary osteoarthritis of right hip Status: Acute Current Visit: Yes (2) History of total right hip arthroplasty Status: Acute Current Visit: Yes (3) CAD (coronary artery disease) Status: Chronic Current Visit: No (4) Hypertension Status: Chronic Current Visit: No
== END 2018-06-06 17:00 ==
LOC: OR 07:27 → 2ND 10:05
PROVIDERS: ADMIT Orthopaedic Surgery; ATTEND Orthopaedic Surgery

== ENCOUNTER → 2018-06-11 09:18 | Outpatient (CLI) | payer MEDICARE, OTHER, SELFPAY ==
[2018-06-11 10:16] LABS: Basophils % 0.2 % (0.1-2.0); Eosinophils # 1.1 K/mm3 (0.0-0.4); Eosinophils % 9.2 % (0.1-12.0); Hematocrit 29.5 % (42.0-52.0); Hemoglobin 9.5 g/dL (14.1-18.0); Lymphocytes # 2.4 K/mm3 (0.7-4.5); Lymphocytes % 20.6 % (10-50); Mean Corpuscular HGB Conc 32.2 g/dL (31.8-35.4); Mean Corpuscular Hemoglobin 26.3 pg (27.0-31.2); Mean Corpuscular Volume 81.8 fl (80-94); Mean Platelet Volume 6.9 fl (7.4-10.4); Monocytes # 0.7 K/mm3 (0.1-1.0); Monocytes % 5.6 % (1.7-9.3); Neutrophils # 7.4 K/mm3 (1.8-7.8); Neutrophils % 64.3 % (37.0-80.0); Platelet Count 374 K/mm3 (142-424); Red Cell Distribution Width 15.2 % (11.5-17.5); White Blood Count 11.5 K/mm3 (4.8-10.8)
[2018-06-11 10:58] LABS: C-Reactive Protein 6.5 mg/L (0.0-0.9)
[2018-06-11 11:31] LABS: Erythrocyte Sedimentation Rate 67 mm/hr (0-20)
== END ==
PROVIDERS: Visit Provider Orthopaedic Surgery
DX: Z96.649 Presence of unspecified artificial hip joint (principal)
CPT/HCPCS: 36415; 85025; 85651; 86140

== ENCOUNTER → 2018-06-17 10:09 | Outpatient (CLI) | payer MEDICARE, OTHER, SELFPAY ==
--- NOTE | 2018-06-17 10:12 | XR_ITS ---
XR hip RT 2-3V w/pelvis Ordering Physician: Sridhar Schreiber MD Patient Age: 72 years: Male HISTORY: ITS.REASON: sp RT SYLVIA TECHNIQUE: AP and & crosstable lateral view right hip along with AP pelvis. COMPARISON :06/03/2018 right hip and AP pelvis. FINDINGS RIGHT HIP. The AP and crosstable lateral views show stable appearance to the right SYLVIA. The medullary stem of the femoral prosthesis is in good position. Tip included. No fracture or loosening. The femoral head component articulates satisfactorily with the acetabular cup component, which appears to be good position/well seated at the acetabulum and stable... Secured by 2 screws into the acetabulum. . \. AP PELVIS. But unchanged. ] Right & left hip prosthesis components appears satisfactory and stable as well Sacrum intact with mild sclerotic changes of the SI joints. There is hypertrophic changes about the roof of left acetabulum. Mild degenerative changes at L5/S1 facets bilaterally. IMPRESSION: 1. Stable RIGHT SYLVIA. Stable with no remarkable change since 06/03/2018. 2. AP pelvis unchanged. With Stable bipolar left hip prosthesis also noted. Mild degenerative changes lower L-spine.
[2018-06-17 11:31] LABS: Basophils % 0.1 % (0.1-2.0); Eosinophils # 0.9 K/mm3 (0.0-0.4); Eosinophils % 5.8 % (0.1-12.0); Hematocrit 31.8 % (42.0-52.0); Hemoglobin 10.1 g/dL (14.1-18.0); Lymphocytes # 1.9 K/mm3 (0.7-4.5); Lymphocytes % 12.3 % (10-50); Mean Corpuscular HGB Conc 31.6 g/dL (31.8-35.4); Mean Corpuscular Hemoglobin 26.4 pg (27.0-31.2); Mean Corpuscular Volume 83.7 fl (80-94); Mean Platelet Volume 6.6 fl (7.4-10.4); Monocytes # 0.6 K/mm3 (0.1-1.0); Monocytes % 3.6 % (1.7-9.3); Neutrophils # 11.9 K/mm3 (1.8-7.8); Neutrophils % 78.3 % (37.0-80.0); Platelet Count 380 K/mm3 (142-424); Red Blood Count 3.81 M/mm3 (4.60-6.20); Red Cell Distribution Width 15.1 % (11.5-17.5); White Blood Count 15.2 K/mm3 (4.8-10.8)
[2018-06-17 11:34] LABS: MANUAL DIFFERENTIAL MANUAL DIFFERENTIAL (MANUAL DIFF)
[2018-06-17 11:40] LABS: C-Reactive Protein 3.4 mg/L (0.0-0.9)
[2018-06-17 11:46] LABS: Eosinophils % 4 % (0-3); Lymphocytes % 14 % (10-50); Monocytes % 3 % (2-9); Neutrophils % 78 % (42-76); Total Cells Counted 100
[2018-06-17 11:47] LABS: Hypochromasia 1+; Platelet Estimate Normal
[2018-06-17 12:20] LABS: Erythrocyte Sedimentation Rate 74 mm/hr (0-20)
== END ==
PROVIDERS: PCP Family Medicine; Visit Provider Orthopaedic Surgery
DX: Z96.641 Presence of right artificial hip joint (principal); B99.9 Unspecified infectious disease
CPT/HCPCS: 36415; 73502; 85007; 85025; 85651; 86140

== ENCOUNTER → 2018-06-24 10:35 | Outpatient (CLI) | payer MEDICARE, OTHER, SELFPAY ==
[2018-06-24 10:57] LABS: Basophils % 0.4 % (0.1-2.0); Eosinophils # 0.9 K/mm3 (0.0-0.4); Eosinophils % 8.9 % (0.1-12.0); Hematocrit 32.2 % (42.0-52.0); Hemoglobin 10.2 g/dL (14.1-18.0); Lymphocytes # 2.8 K/mm3 (0.7-4.5); Lymphocytes % 27.9 % (10-50); Mean Corpuscular HGB Conc 31.7 g/dL (31.8-35.4); Mean Corpuscular Hemoglobin 26.3 pg (27.0-31.2); Mean Corpuscular Volume 82.8 fl (80-94); Mean Platelet Volume 7.1 fl (7.4-10.4); Monocytes # 0.6 K/mm3 (0.1-1.0); Monocytes % 5.5 % (1.7-9.3); Neutrophils # 5.8 K/mm3 (1.8-7.8); Neutrophils % 57.3 % (37.0-80.0); Platelet Count 325 K/mm3 (142-424); Red Blood Count 3.89 M/mm3 (4.60-6.20); Red Cell Distribution Width 14.7 % (11.5-17.5); White Blood Count 10.1 K/mm3 (4.8-10.8)
[2018-06-24 11:20] LABS: C-Reactive Protein 3.5 mg/L (0.0-0.9)
[2018-06-24 11:39] LABS: Erythrocyte Sedimentation Rate 73 mm/hr (0-20)
== END ==
PROVIDERS: Visit Provider Orthopaedic Surgery
DX: Z96.649 Presence of unspecified artificial hip joint (principal)
CPT/HCPCS: 36415; 85025; 85651; 86140

== ENCOUNTER → 2018-07-16 12:44 | Outpatient (CLI) | payer MEDICARE, OTHER, SELFPAY ==
--- NOTE | 2018-07-16 12:46 | XR_ITS ---
XR hip RT 2-3V w/pelvis Ordering Physician: Sridhar Schreiber MD Patient Age: 72 years: Male HISTORY: ITS.REASON: sp RT total hip dos 06/03/18 TECHNIQUE: AP and crosstable lateral right hip. COMPARISON :06/17/2018] FINDINGS Right SYLVIA in place. The acetabular cup component secured by 2 screws to the roof of acetabulum. The femoral head prosthesis articulates satisfactorily with the acetabular cup. Short medullary stem is intact. No fracture nor loosening. Stable satisfactory appearance. IMPRESSION: Stable satisfactory appearance of the right SYLVIA. No significant change since 06/17/2018
== END ==
PROVIDERS: PCP Family Medicine; Visit Provider Orthopaedic Surgery
DX: Z96.641 Presence of right artificial hip joint (principal)
CPT/HCPCS: 73502

== ENCOUNTER → 2018-07-19 13:36 | Outpatient (CLI) | payer OTHER, MEDICARE, SELFPAY ==
--- NOTE | 2018-07-19 13:39 | CT_ITS ---
CT lung screening EXAM: CT LUNG LOW DOSE WO CONTRAST HISTORY: ITS.REASON: TOBACCO USE, QUIT X 10 YRS AGO ORDERING PHYSICIAN: Dejan Gutierrez PATIENT AGE: 72 years COMPARISON: None TECHNIQUE: The exam was performed on a GE Light Speed [address] scanner using 2.90 mGy CTDI. A low dose helical CT CHEST was performed on a multi-detector scanner. All CT scans at the facility use one or more dose reduction, viz: automated exposure control, ma/kV adjustment per patient size (including targeted exams where dose is matched to indication, i.e. head), or iterative reconstruction technique. The LDCT was performed in a facility that meets the criteria for the screening program. Data regarding this exam was submitted to ACR which is an approved registry. The order for this exam indicates that it came as a result of a lung cancer screening counseling shard decision-making visit that included all the elements required of such a visit including smoking cessation. The radiologist interpreting this exam meets the CMS criteria for the LDCT lung cancer screening program. The exam is reported using the Lung-RADS classification scale and reported to the ACR registry. NOTE: This study was performed for the specific purposes of lung cancer screening and is not an alternative to diagnostic chest CT. RADIATION DOSE: CTDI vol(CT dose Index-volume) = 2.90mG DLP (Dose Length Product) = 121.16 FINDINGS: Hyperinflation with attenuation of the peripheral pulmonary vessels consistent with obstructive chronic bronchitis. There are scattered noncalcified pulmonary nodules including a 7 mm nodule in the right upper lobe image #20 not significant changed, 7 mm noncalcified nodule right upper lobe medially image #31 slightly more prominent possibly related to the slice orientation. 4 mm noncalcified nodule left lower lobe image #67, 6 mm noncalcified nodule left lower lobe posteriorly image #67 unchanged. No central obstructing lesions. There are some mild atelectatic changes in the right lower lobe. Incidental coronary artery calcifications are present., IMPRESSION: 1. Lung RADS Category: 3, probably benign 2. Other findings: COPD, coronary artery calcifications RECOMMENDATIONS: 6 month LDCT follow-up
== END ==
PROVIDERS: PCP Family Medicine; Visit Provider Internal Medicine
DX: Z12.2 Encounter for screening for malignant neoplasm of respiratory organs (principal); Z87.891 Personal history of nicotine dependence

== ENCOUNTER → 2018-08-29 09:20 | Outpatient (CLI) | payer MEDICARE, OTHER, SELFPAY ==
--- NOTE | 2018-08-29 09:24 | XR_ITS ---
XR hip RT 2-3V w/pelvis HISTORY: Follow-up total hip replacement ITS.REASON: status post RT SYLVIA, dos 06/03/18 ORDERING PHYSICIAN: Sridhar Schreiber MD PATIENT AGE: 72 years COMPARISON: 07/16/2018 FINDINGS: Status post total hip replacement. Prosthesis is in good alignment. No fracture or dislocation. IMPRESSION: Status post total hip replacement with satisfactory position of prosthesis
== END ==
PROVIDERS: PCP Family Medicine; Visit Provider Orthopaedic Surgery
DX: Z96.641 Presence of right artificial hip joint (principal)
CPT/HCPCS: 73502

== ENCOUNTER 2018-09-06 21:33 | Observation (INO) ==
--- NOTE | 2018-09-06 21:55 | Emergency Department Note ---
ED Disposition Clinical Impression: Obesity (BMI 30-39.9) Chest pain Qualifiers: Chest pain type: other chest pain Qualified Code(s): R07.89 - Other chest pain; R07.8 - Other chest pain Anemia Qualifiers: Anemia type: unspecified type Qualified Code(s): D64.9 - Anemia, unspecified Disposition: Admitted as Observation Condition on Discharge: Good - Critical Care Critical Care Time: No Attestation: On 09/06/18, the high probability of a clinically significant, sudden or life threatening deterioration of the following system(s) required my full and direct attention, intervention and personal management. The time I documented below is in addition to time spent performing reported procedures but includes the following listed in this critical care notation. Medical Decision Making - Medical Records Medical records reviewed: Yes: I reviewed the patient's medical records. - [place] Inquiry Pt receiving controlled substance: No Vital Signs: 09/06/18 21:38 09/06/18 22:17 09/06/18 23:23 Temperature 98.2 F Temperature Source Oral Pulse Rate [Right Radial] 79 81 72 Respiratory Rate 16 16 16 Blood Pressure [Right Arm] 164/79 H 138/73 139/83 Blood Pressure Mean [Right Arm] 107 94 101 Blood Pressure Source [Right Arm] Automatic Cuff Blood Pressure Position [Right Arm] Sitting 02 Sat by Pulse Oximetry 97 97 97 Oxygen Delivery Method Room Air Room Air Room Air 09/07/18 00:20 Temperature Temperature Source Pulse Rate [Right Radial] 73 Respiratory Rate 15 Blood Pressure [Right Arm] 158/64 H Blood Pressure Mean [Right Arm] 95 Blood Pressure Source [Right Arm] Blood Pressure Position [Right Arm] 02 Sat by Pulse Oximetry 98 Oxygen Delivery Method Room Air - Lab Data Lab results reviewed: Yes: I reviewed the patient's lab results. Lab Results 09/06/18 21:40: WBC 9.0, RBC 4.20 L, Hgb 10.1 L, Hct 32.1 L, MCV 76.4 L, MCH 24.1 L, MCHC 31.5 L, RDW 14.8, Plt Count 240, MPV 7.2 L, Neut % (Auto) 54.8, Lymph % (Auto) 33.4, Pitkin % (Auto) 6.5, Eos % (Auto) 5.0, Baso % (Auto) 0.3, Neut # (Auto) 4.9, Lymph # (Auto) 3.0, [place]kin # (Auto) 0.6, Eos # (Auto) 0.5 H, Baso # (Auto) 0.0 09/06/18 21:40: Sodium 140, Potassium 3.8, Chloride 104, Carbon Dioxide 26, Anion Gap 13.8, BUN 18, Creatinine 1.22, Estimated Creat Clear 100, Estimated GFR 58 L, Est GFR ( Amer) 70, Glucose 156 H, Calcium 8.7, Troponin I < 0.02 09/06/18 23:35: Troponin I < 0.02 Result diagrams: 09/06/18 21:40 09/06/18 21:40 Orders (Tests/Meds): ED MEDICATIONS Discontinued Medications Generic Name Dose Route Start Last Admin Trade Name Freq PRN Reason Stop Dose Admin Aspirin 324 mg 09/06/18 21:45 09/06/18 21:46 Aspirin 81mg Chewable Tablet PO 09/06/18 21:46 324 mg ONCE ONE Administration Nitroglycerin 0.4 mg 09/06/18 21:59 09/06/18 21:59 Nitrostat 0.4mg Sl Tablet SL 09/06/18 22:00 0.4 mg ONCE ONE Administration ORDERS Category Date Time Status XR chest 2V Stat Exams 09/06/18 21:40 Taken - Radiology Data #1 Image(s): Chest Image Reviewed: Yes I reviewed the patient's radiology image Preliminary Findings: Normal/NAD - ECG Data Tracing #1 Normal Sinus Rhythm: Yes Ischemic changes: non-specific ST-T wave changes Tracing #2 Normal Sinus Rhythm: Yes Ischemic changes: non-specific ST-T wave changes - Physician Consults Physician Consulted: xuan Reason -: Admission Chest Pain HPI - General Chief Complaint: Chest Pain Stated Complaint: Left arm jaw pain Time Seen by Provider: 09/06/18 21:55 Mode of Arrival: Ambulatory Source of Information: Patient, Spouse, Medical Record Limitations: No Limitations Description of Symptoms (Recalled from ER Triage Doc. by RN): pt reports pain in left shoulder blade that started approx 1930 tonight, reports pain then starte radiating down into his left arm and jaw, pt denies any actual chest pain, reports pain is in left shoulder, left jaw, and left arm. reports he was sitting at home when pain started - History of Present Illness HPI narrative: acute lt scapular pain with rad to lt mandible and lt upper ext which started t onight - has had in past - had neg cath about 1 yr ago - pain relieved with nts - MD complaint: chest pain indicative of cardiac Onset (ago): hour(s) Duration: now resolved Activity at onset: during rest Pain location: other Severity: similar to previous episodes Quality: sharp Pain radiation: LUE, back, jaw/teeth Risk Factors for CAD: Hypertension, Family Hx of CAD Treatments prior to or on arrival for Cardiac Chest Pain: none - GIIN Score for Non-Stemi Age of Patient: 70-79 years old Heart Rate: 70-89 bpm Systolic Blood Pressure: 160-199 mmHg Serum Creatinine: 0.80-1.19 mg/dl CHF [place] Class: I-No CHF Other Risk Factors: None Non-Stemi Risk Score: 101 - Related Data Prior Cardiac Testing/Procedures: Cardiac Angiogram Home Medications Medication Instructions Recorded Confirmed Amlodipine Besylate [Norvasc 10mg 10 mg PO DAILY 08/02/17 09/07/18 tablet] Lisinopril [Lisinopril 40mg Tablet] 40 mg PO DAILY 08/02/17 09/07/18 Fluoxetine HCl [Prozac] 20 mg PO DAILY 06/04/18 09/07/18 Gabapentin [Gabapentin 300mg Cap] 900 mg PO BID 06/04/18 09/07/18 hydroCHLOROthiazide [HCTZ 25mg 6.25 mg PO DAILY 06/04/18 09/07/18 tab] Atorvastatin Calcium [Atorvastatin 20 mg PO DAILY 09/07/18 09/07/18 20mg Tab] Metformin HCl 1,000 mg PO DAILY 09/07/18 09/07/18 Pantoprazole Sodium [Pantoprazole 20 mg PO BID 09/07/18 09/07/18 20mg Tab] Allergies Allergy/AdvReac Type Severity Reaction Status Date / Time No Known Allergies Allergy Verified 09/06/18 21:44 [facility] History - Hepatitis A Screen Drug use history?: No High risk sexual behaviors?: No History of sexually transmitted infection?: No Currently employed?: No Childcare worker?: No Do you have indoor plumbing?: Yes Do you have electricity?: Yes Attestation statement:: This patient has been screened for Hepatitis A risk factors. I have reviewed the patient's past medical history: Yes Medical History: Reports:: Deep Vein Thrombosis, Gastroesophageal Reflux Disease(GERD), Hyperlipidemia, Hypertension, Pulmonary Embolism Denies:: Cancer, Diabetes Mellitus Type 1, Diabetes Mellitus Type 2, MRSA, Myocardial Infarction, Seizures, Transient Ischemic Attacks (TIA) Other Medical History: Reports: Arthritis, Cataracts, Other. Denies: Blood Tr ansfusion Reaction Comment: Obesity, Former smoker Laterality Cases: Left: Arthroscopy Hip, Bilateral: Total Hip Replacement Other Surgeries: Yes: Hernia Repair, Other Amputation: No Fractures: No - Social History Smoking Status: Never smoker Tobacco Type: cigarettes # Packs/Day (cigarettes): 1 #Yrs smoked (if former smoker): 10 Alcohol Intake: never Substance Use Type: denies use Occupational Status: retired Housing: house Household Members: spouse, none - Psychiatric History Expresses thoughts of harming self/others: None Suicide Plan Description: No Plan Family Hx:: Cancer, Heart Attack, Hypertension, Stroke ROS Obtained: Yes All systems reviewed & no additional complaints - Constitutional Constitutional: Denies fever(s) - Eyes Eyes: Denies change in vision - ENT Ears, Nose, Mouth, and Throat: Denies change in voice - Cardiovascular Cardiovascular: Reports as per HPI, Reports radiating jaw, neck or arm pain - Respiratory Respiratory: No cough - Gastrointestinal Gastrointestingal: Denies: abdominal pain - Genitourinary Male Genitourinary: Denies hematuria - Musculoskeletal Musculoskeletal: Denies joint pain - Integumentary/Breasts Skin/Breast: Denies rash - Neurologic Neurologic: Denies seizure-like activity Physical Exam - General General appearance: alert, in no apparent distress, obese - Head Head exam: normocephalic - Eye Eye exam: Present: PERRL, EOMI - ENT ENT exam: Present: mucous membranes moist - Neck Neck exam: Present: trachea midline - Respiratory Respiratory exam: Present: normal lung sounds bilaterally. Absent: respiratory distress - Cardiovascular Cardiovascular exam: Present: regular rate, systolic murmur - Abdominal Exam Abdominal exam: Present: soft - Extremities Exam Extremities exam: Present: full ROM - Neurological Exam Neurological exam: Present: alert, oriented X3, CN II-XII intact - Psychiatric Psychiatric exam: Present: normal affect - Skin Skin exam: Absent: rash
[2018-09-06 21:56] LABS: Basophils % 0.3 % (0.1-2.0); Eosinophils # 0.5 K/mm3 (0.0-0.4); Hematocrit 32.1 % (42.0-52.0); Hemoglobin 10.1 g/dL (14.1-18.0); Lymphocytes % 33.4 % (10-50); Mean Corpuscular HGB Conc 31.5 g/dL (31.8-35.4); Mean Corpuscular Hemoglobin 24.1 pg (27.0-31.2); Mean Corpuscular Volume 76.4 fl (80-94); Mean Platelet Volume 7.2 fl (7.4-10.4); Monocytes # 0.6 K/mm3 (0.1-1.0); Monocytes % 6.5 % (1.7-9.3); Neutrophils # 4.9 K/mm3 (1.8-7.8); Neutrophils % 54.8 % (37.0-80.0); Platelet Count 240 K/mm3 (142-424); Red Cell Distribution Width 14.8 % (11.5-17.5)
[2018-09-06 22:07] LABS: Anion Gap 13.8 mEq/L (5-15); Blood Urea Nitrogen 18 mg/dL (7-18); Calcium 8.7 mg/dL (8.5-10.1); Carbon Dioxide 26 mmol/L (21.0-32.0); Chloride 104 mmol/L (98-107); Glucose 156 mg/dL (74-106); Potassium 3.8 mmoL/L (3.5-5.1); Sodium 140 mmol/L (136-145)
[2018-09-07 07:22] LABS: Basophils % 0.3 % (0.1-2.0); Eosinophils # 0.4 K/mm3 (0.0-0.4); Eosinophils % 5.2 % (0.1-12.0); Hemoglobin 9.4 g/dL (14.1-18.0); Lymphocytes # 2.6 K/mm3 (0.7-4.5); Lymphocytes % 30.9 % (10-50); Mean Corpuscular HGB Conc 31.5 g/dL (31.8-35.4); Mean Corpuscular Hemoglobin 24.2 pg (27.0-31.2); Mean Corpuscular Volume 76.7 fl (80-94); Mean Platelet Volume 7.6 fl (7.4-10.4); Monocytes # 0.6 K/mm3 (0.1-1.0); Monocytes % 6.6 % (1.7-9.3); Neutrophils # 4.8 K/mm3 (1.8-7.8); Platelet Count 221 K/mm3 (142-424); Red Blood Count 3.91 M/mm3 (4.60-6.20); Red Cell Distribution Width 14.9 % (11.5-17.5); White Blood Count 8.4 K/mm3 (4.8-10.8)
[2018-09-07 07:28] LABS: Anion Gap 11.2 mEq/L (5-15); Blood Urea Nitrogen 17 mg/dL (7-18); Calcium 8.8 mg/dL (8.5-10.1); Carbon Dioxide 28 mmol/L (21.0-32.0); Chloride 106 mmol/L (98-107); Glucose 122 mg/dL (74-106); Potassium 4.2 mmoL/L (3.5-5.1); Sodium 141 mmol/L (136-145)
--- NOTE | 2018-09-07 07:39 | H&P/Discharge Summary ---
General - General Admission date:: 09/07/18 Discharge date: 09/07/18 *Admission Date: 09/07/18 *Chief complaint: Shoulder pain *History of present illness: 72-year-old male with history of hypertension and hyperlipidemia presented to the emergency department late yesterday evening after onset of periscapular pain around 7:30 PM. Patient is normal state of health at home watching some television when he developed pain around the left scapula. Pain cannot really be relieved by any certain movement. He thereafter he developed a squeezing sensation at the left elbow that gradually crept up the arm to the level of the shoulder and then he felt some discomfort in his left jaw. He denies neck pain, chest pain, shortness of breath, diaphoresis. When he developed jaw pain he decided to seek treatment in the emergency department. On presentation to the ER workup was begun. First set of cardiac enzymes was negative. Patient was admitted for rule out of an NM. Patient had cardiac catheterization in September [address] [facility] History I have reviewed the patient's past medical history: Yes Medical History: Reports:: Deep Vein Thrombosis (RIGHT LEG), Diabetes Mellitus Type 2, Gastroesophageal Reflux Disease(GERD), Hyperlipidemia, Hypertension, Pulmonary Embolism Denies:: Cancer, Diabetes Mellitus Type 1, MRSA, Myocardial Infarction, Seizures, Transient Ischemic Attacks (TIA) Have you ever received a pneumonia vaccine?: Yes Have you received a flu vaccine this season?: Yes Other Medical History: Reports: Arthritis, Cataracts, Other. Denies: Blood Transfusion Reaction Laterality Cases: Left: Arthroscopy Hip, Right: Total Hip Replacement, Bilateral: Cataract Other Surgeries: Yes: Hernia Repair, Other Amputation: No Fractures: No - *Social History Educational Level: Completed GED/General Educational Development Smoking Status: Never smoker Tobacco Type: cigarettes # Packs/Day (cigarettes): 1 #Yrs smoked (if former smoker): 10 Alcohol Intake: never Substance Use Type: denies use Occupational Status: retired Housing: house Household Members: spouse, none Travel in the last 8 weeks: None - Psychiatric History Expresses thoughts of harming self/others: None Suicide Plan Description: No Plan Family Hx:: Cancer, Coronary Artery Disease, Diabetes, Heart Attack, Hypertension, Stroke Review of Systems - Review of Systems Review of systems:: pertinent systems reviewed and negative unless documented below - *Neurologic Denies seizure-like activity Exam Vital signs and Labs for Last 24 Hours: Temp Pulse Resp BP Pulse Ox 98.0 F 86 18 146/64 H 95 09/07/18 04:00 09/07/18 04:00 09/07/18 04:00 09/07/18 04:00 09/07/18 04:00 Laboratory Results - last 24 hr 09/06/18 21:40: WBC 9.0, RBC 4.20 L, Hgb 10.1 L, Hct 32.1 L, MCV 76.4 L, MCH 24.1 L, MCHC 31.5 L, RDW 14.8, Plt Count 240, MPV 7.2 L, Neut % (Auto) 54.8, Lymph % (Auto) 33.4, Mercer % (Auto) 6.5, Eos % (Auto) 5.0, Baso % (Auto) 0.3, Neut # (Auto) 4.9, Lymph # (Auto) 3.0, [place] # (Auto) 0.6, Eos # (Auto) 0.5 H, Baso # (Auto) 0.0 09/06/18 21:40: Sodium 140, Potassium 3.8, Chloride 104, Carbon Dioxide 26, Anion Gap 13.8, BUN 18, Creatinine 1.22, Estimated Creat Clear 100, Estimated GFR 58 L, Est GFR ( Amer) 70, Glucose 156 H, Calcium 8.7, Troponin I < 0.02 09/06/18 21:40: Retic Count (auto) 3.2 09/06/18 23:35: Troponin I < 0.02 09/07/18 04:05: Troponin I < 0.02 I & O for Last 24 hours: Intake & Output 09/04/18 09/05/18 09/06/18 09/07/18 11:59 11:59 11:59 11:59 Intake Total 177 / 177 Output Total 280 / 280 Balance -103 / -103 Weight 290 lb - Constitutional no acute distress - *Routine HEENT Exam Head: Present: normocephalic Eye: Present: EOMI ENT: Present: mucous membranes moist - *Routine Neck Exam Absent: carotid bruit - *Routine Respiratory Exam Present: CTA bilaterally. Absent: decreased breath sounds, rales, respiratory distress, rhonchi, wheezes, crackles, diminished air movement - *Routine Cardiovascular Exam Present: RRR, Normal S1, Normal S2. Absent: murmur, gallop, rubs, S3, S4 - *Routine Abdominal Exam Present: soft, normoactive bowel sounds. Absent: tenderness, distended - *Routine Extremities Exam Present: full ROM - *Routine Skin Exam Present: intact. Absent: cyanosis - *Routine Neurological Exam Present: alert, oriented X3. Absent: CN II-XII intact Hospital Course Hospital Course: In the emergency department patient was given a glycerin which improved all of his symptoms except for his scapular pain. Blood pressure was elevated on admission as well. Patient was admitted for observation. He ruled out for NM with serial troponins. On the morning of September 07 he was discharged home. Patient's blood pressure to be mildly elevated during hospitalization and bisoprolol 2.5 mg will be added to his home medication regimen. Patient will follow-up in the office later next week Results Labs on day of discharge: Labs from last 24 hours 09/07/18 09/06/18 09/06/18 04:05 23:35 21:40 WBC RBC Hgb Hct MCV MCH MCHC RDW Plt Count MPV Neut % (Auto) Lymph % (Auto) Mercer % (Auto) Eos % (Auto) Baso % (Auto) Neut # (Auto) Lymph # (Auto) Mercer # (Auto) Eos # (Auto) Baso # (Auto) Retic Count (auto) 3.2 Sodium Potassium Chloride Carbon Dioxide Anion Gap BUN Creatinine Estimated Creat Clear Estimated GFR Est GFR ( Amer) Glucose Calcium Troponin I < 0.02 < 0.02 09/06/18 09/06/18 21:40 21:40 WBC 9.0 RBC 4.20 L Hgb 10.1 L Hct 32.1 L MCV 76.4 L MCH 24.1 L MCHC 31.5 L RDW 14.8 Plt Count 240 MPV 7.2 L Neut % (Auto) 54.8 Lymph % (Auto) 33.4 Mercer % (Auto) 6.5 Eos % (Auto) 5.0 Baso % (Auto) 0.3 Neut # (Auto) 4.9 Lymph # (Auto) 3.0 Mercer # (Auto) 0.6 Eos # (Auto) 0.5 H Baso # (Auto) 0.0 Retic Count (auto) Sodium 140 Potassium 3.8 Chloride 104 Carbon Dioxide 26 Anion Gap 13.8 BUN 18 Creatinine 1.22 Estimated Creat Clear 100 Estimated GFR 58 L Est GFR ( Amer) 70 Glucose 156 H Calcium 8.7 Troponin I < 0.02 Discharge Medications - Medications for Discharge Home Medication List at Discharge: No Action Gabapentin [Gabapentin 300mg Cap] 900 mg PO BID Metformin HCl 1,000 mg PO DAILY Atorvastatin Calcium [Atorvastatin 20mg Tab] 20 mg PO DAILY Amlodipine Besylate [Norvasc 10mg tablet] 10 mg PO DAILY Lisinopril [Lisinopril 40mg Tablet] 40 mg PO DAILY hydroCHLOROthiazide [HCTZ 25mg tab] 6.25 mg PO DAILY Fluoxetine HCl [Prozac] 20 mg PO DAILY Pantoprazole Sodium [Pantoprazole 20mg Tab] 20 mg PO BID Trazodone HCl 50 mg PO PM Disposition Disposition: Home, Self-Care
== END 2018-09-07 08:35 | disposition home or self-care (01) ==
LOC: ICU 21:33 → ER 21:33 → ICU 09-07 01:28
PROVIDERS: ADMIT Internal Medicine Adolescent Medicine; ATTEND Family Medicine
CPT/HCPCS: 36415; 71020; 71046; 80048; 84484; 85025; 85044; 93005; 99284; G0378

== ENCOUNTER → 2018-11-06 10:19 | Outpatient (CLI) | payer MEDICARE, OTHER, SELFPAY ==
--- NOTE | 2018-11-06 10:23 | XR_ITS ---
XR hip RT 2-3V w/pelvis HISTORY: Follow-up hip replacement ITS.REASON: sp RT SYLVIA, dos 06/03/18 ORDERING PHYSICIAN: Sridhar Schreiber MD PATIENT AGE: 72 years COMPARISON: 08/29/2018 FINDINGS: Status post total right hip replacement with good alignment. No change with no acute finding. IMPRESSION: Status post total right hip replacement. No acute finding
--- NOTE | 2018-11-06 10:23 | XR_ITS ---
XR hip LT 2-3V w/pelvis HISTORY: Follow-up left hip replacement ITS.REASON: LT SYLVIA, dos 11/19/17 ORDERING PHYSICIAN: Sridhar Schreiber MD PATIENT AGE: 72 years COMPARISON: 02/14/2018 FINDINGS: There is a bipolar prosthesis present on the left in good alignment with no evidence of orthopedic complication. There is some heterotopic bone formation superior to the greater trochanter. No other significant anomalies are evident. IMPRESSION: Status post bipolar prosthesis placement with good alignment with some heterotopic bone formation superior to the greater trochanter
== END ==
PROVIDERS: PCP Family Medicine; Visit Provider Orthopaedic Surgery
DX: Z96.641 Presence of right artificial hip joint (principal); Z96.649 Presence of unspecified artificial hip joint
CPT/HCPCS: 73502

== ENCOUNTER → 2019-06-03 13:27 | Outpatient (CLI) | payer MEDICARE, OTHER, SELFPAY ==
--- NOTE | 2019-06-03 13:33 | XR_ITS ---
PROCEDURE: XR HIP RT 2-3V W/PELVIS CLINICAL INDICATION: 1 year follow up RT total hip Follow-up total hip replacement COMPARISON: HIPCMRT XR hip RT 2-3V w/pelvis from 11/06/2018 FINDINGS: Status post right total hip replacement with good alignment. Status post left marko arthroplasty with good alignment. There is generalized vascular calcification. Heterotopic ossification noted superior to the left greater trochanter and to lesser degree superior to the right greater trochanter. IMPRESSION: Good alignment status post total hip prosthesis placement Dictated by: Amanuel Estevez MD 06/03/2019 14:00 Electronically signed by Amanuel Estevez MD in [place] 06/03/2019 14:00
== END ==
PROVIDERS: PCP Family Medicine; Visit Provider Orthopaedic Surgery
DX: Z96.641 Presence of right artificial hip joint (principal); M25.551 Pain in right hip
CPT/HCPCS: 73502

== ENCOUNTER 2023-05-24 07:46 | Emergency (ER) | payer MEDICARE, SELFPAY ==
--- NOTE | 2023-05-24 07:58 | [facility].EDGENADL ---
Discharge Plan Disposition Patient Disposition: Home, Self-Care Chief Complaint: Skin/Abscess/Foreign Body Prescriptions Prescriptions: No Action amlodipine 10 MG tablet 10 mg PO DAILY lisinopril 40 MG tablet 40 mg PO DAILY hydrochlorothiazide 25 MG tablet 6.25 mg PO DAILY fluoxetine 20 MG capsule 20 mg PO DAILY gabapentin 300 MG capsule 900 mg PO BID atorvastatin 20 MG tablet 20 mg PO DAILY pantoprazole 20 MG tablet,delayed release (DR/EC) 20 mg PO BID metformin 1,000 MG tablet 1,000 mg PO DAILY trazodone 50 MG tablet 50 mg PO PM bisoprolol fumarate 5 MG tablet 0.5 tab PO DAILY Qty: 15 0RF Activity Restrictions/Add. Instructions Additional Instructions/Restrictions: At this time it was felt you are safe to be discharged home. If new or worsening symptoms please do not hesitate to return the emergency department. Please continue to follow-up outpatient with your surgeon. 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 Patient states that few days ago he had a lesion on his nose removed with subsequent stitches placed. Over the last 24 hours he has began to bleed for which he has put a piece of gauze over it and presents here for continued evaluation. Denies trauma. No other acute complaints at this time Related Data Home Medications Medication Instructions Recorded Confirmed amlodipine 10 mg tablet 10 mg PO DAILY Hypertension 08/02/17 06/03/19 lisinopril 40 mg tablet 40 mg PO DAILY Hypertension 08/02/17 06/03/19 fluoxetine 20 mg capsule 20 mg PO DAILY MOOD 06/04/18 06/03/19 gabapentin 300 mg capsule 900 mg PO BID NEUROPATHY 06/04/18 06/03/19 hydrochlorothiazide 25 mg tablet 6.25 mg PO DAILY Fluid 06/04/18 06/03/19 atorvastatin 20 mg tablet 20 mg PO DAILY . 09/07/18 06/03/19 metformin 1,000 mg tablet 1,000 mg PO DAILY . 09/07/18 06/03/19 pantoprazole 20 mg tablet,delayed 20 mg PO BID . 09/07/18 06/03/19 release trazodone 50 mg tablet 50 mg PO PM SLEEP 09/07/18 06/03/19 Previous Rx's Medication Instructions Recorded bisoprolol fumarate 5 mg tablet 0.5 tab PO DAILY #15 tabs 09/07/18 Allergies Allergy/AdvReac Type Severity Reaction Status Date / Time No Known Allergies Allergy Verified 06/03/19 14:20 [facility] Disclaimer: The information contained in this section may have been updated after the patient was seen, as this information can be updated by other users. Social History Smoking Status: Former smoker tobacco type: cigarettes packs per day: 1 second hand exposure: No alcohol intake: never substance use type: denies use current occupational status: retired Travel in the last 8 weeks: None household members: spouse and none housing: house current occupational exposures/hazards: No caffeine: Yes ROS Obtained: Yes Systems reviewed as appropriate & no additional complaints except as documented Physical Exam General General appearance: alert and in no apparent distress Head Head exam: atraumatic and normocephalic Eye Eye exam: Present PERRL and EOMI ENT ENT exam: Present mucous membranes moist and other (Linear wound well approximated by sutures oozing blood at the superior aspect of the nasal bridge. No pulsatile bleeding.) Neck Neck exam: Present normal inspection Chest Chest inspection: Present normal inspection and symmetric chest wall rise Respiratory Respiratory exam: Absent respiratory distress Cardiovascular Cardiovascular exam: Present regula
--- NOTE | 2023-05-24 08:01 | PC.NURSE ---
Dr. Smith at [facility] for pt eval
[2023-05-24 08:03] VITALS: BP 136/73; PULSE 84; RESP 16; TEMP 37; O2SAT 95; BMI 39.1
[2023-05-24 09:01] VITALS: BP 117/61; PULSE 93; RESP 16; TEMP 37; O2SAT 95
== END 2023-05-24 09:01 | disposition home or self-care (01) ==
LOC: ER 08:32
PROVIDERS: Emergency Provider Emergency Medicine
DX: L76.22 Postprocedural hemorrhage of skin and subcutaneous tissue following other procedure (principal); I48.0 Paroxysmal atrial fibrillation; Z79.01 Long term (current) use of anticoagulants
CPT/HCPCS: 99283

== ENCOUNTER 2025-01-07 15:24 | Observation (INO) | payer MEDICARE, SELFPAY ==
[2025-01-07] VITALS (12 sets, daily range): BP systolic 96–148; BP diastolic 42–93; PULSE 55–79; RESP 13–22; TEMP 36.6–36.9; O2SAT 92–98; BMI 41.1; BMI 41.3
--- NOTE | 2025-01-07 15:26 | ECG_ITS ---
APPROVED REPORT Exam: Resting ECG HR:74 bpm ECG Measurements Heart Rate 74 AXES VA 131 P 213 QRSd 134 QRS 93 QT 428 T 65 QTc 456 Conclusion SINUS RHYTHM RIGHT BUNDLE BRANCH BLOCK [120+ ms QRS DURATION, UPRIGHT V1, 40+ ms S IN I/aVL/V4/V5/V6] No STEMI Electronically signed by : LAZARA PRADO, 01/08/2025 00:05:50
--- NOTE | 2025-01-07 15:34 | XR_ITS ---
FINAL REPORT TECHNIQUE: Chest PA & Lateral CLINICAL HISTORY: chest pain COMPARISON: None FINDINGS: 2 views of the chest were performed. The heart size is normal. The mediastinum is within normal limits. There is no acute cardiopulmonary process. There are no pleural effusions. There is no pneumothorax. The bony thorax appears intact. IMPRESSION: No acute cardiopulmonary process. Reviewed, Interpreted and Dictated by Dajuan Arias MD Transcribed by Rylee Jones Authenticated and [facility]
--- NOTE | 2025-01-07 15:36 | [facility].EDCP ---
Discharge Plan Disposition Patient Disposition: Admitted Condition: Good Clinical Impressions Clinical Impression: CKD (chronic kidney disease), Urinary frequency, Superior mesenteric artery stenosis, Acute UTI Chest pain Qualifiers: Chest pain type: other chest pain Qualified Code(s): R07.89 - Other chest pain Discharge ED Provider: Angelina Hernandez HPI General Chief Complaint: Chest Pain Stated Complaint: Chest Pain Time Seen by Provider: 01/07/25 15:31 History of Present Illness HPI narrative: This patient is an 79-year-old male with a history of obesity, hypertension, hyperlipidemia, CAD, atrial fibrillation, GERD, diabetes presented to the emergency department for evaluation with concern for chest pain. Patient arrives by EMS. Patient reports that he was driving around 2:00 PM when he started experiencing pain going down his left arm that then became painful in his left neck and jaw and in the middle of his chest. He also notes that it radiated to the epigastric region of his abdomen. He pulled over because he was experiencing such severe pain that he could not keep driving, and he called EMS. EMS arrived and noted that patient was hypertensive but otherwise vitals were reassuring. They note that the patient had a right bundle branch block on EKG but no STEMI. They gave aspirin. Patient states that he is feeling a little bit better right now but is still having some significant chest pain. His last cardiac catheterization was in September 2017 on medical record review. At that time, he was found to have mild CAD and risk factor modification was recommended with no stents placed. He denies cardiac workup since then. He reports he was feeling fine prior to 2:00 and denies anything out of the ordinary as of late. Related Data Home Medications ?Medication ?Instructions ?Recorded ?Confirmed lisinopril 40 mg tablet 40 mg PO DAILY Hypertension 08/02/17 01/07/25 gabapentin 300 mg capsule 600 mg PO BID NEUROPATHY 06/04/18 01/07/25 atorvastatin 20 mg tablet 20 mg PO DAILY . 09/07/18 01/07/25 metformin 1,000 mg tablet 500 mg PO BID . 09/07/18 01/07/25 pantoprazole 20 mg tablet,delayed 20 mg PO BID . 09/07/18 01/07/25 release Previous Rx's ?Medication ?Instructions ?Recorded bisoprolol fumarate 5 mg tablet 0.5 tab PO DAILY #15 tabs 09/07/18 Allergies Allergy/AdvReac Type Severity Reaction Status Date / Time No Known Allergies Allergy Verified 06/03/19 14:20 [facility] Disclaimer: The information contained in this section may have been updated after the patient was seen, as this information can be updated by other users. Medical History (Updated 01/07/25 @ 22:07 by Yamilex Peck RN) Osteoarthritis Surgical History (Updated 01/07/25 @ 22:07 by Yamilex Peck RN) History of hip replacement, total History of cholecystectomy Social History (Updated 01/07/25 @ 22:09 by Yamilex Peck RN) Smoking Status: Former smoker tobacco type: cigarettes packs per day: 1 years smoked: 48 smoking status stop date: 15 years ago second hand exposure: No alcohol intake: never substance use type: denies use current occupational status: retired Travel in the last 8 weeks?: None household members: spouse and none housing: house current occupational exposures/hazards: No caffeine: Yes Have you lived/traveled outside [place] in past 30 days?: No Contact w/someone who lives/traveled outside US past 30 days?: No Exposure to someone with infectious disease in past 14 days?: No Do you have a fever (greater than 100.4 F or 38 C)?: No Have you tested positive for COVID-19?: No Exposed to someone with COVID-19 in past 14 days?: No Do you have a sore throat?: No Do you have a cough?: No Do you have any weakness?: No Are you experiencing any nausea/vomitting?: No Do you have any diarrhea?: No Are you experiencing any unusual bleeding?: No Do you have any muscle aches/pain?: No Do you have any abdominal pain?: No Are you experiencing loss of taste or smell?: No Other Medical History Have you received the Flu Vaccine for this season: No Have you received the Pneumonia Vaccine: Yes ROS Obtained: Yes All systems reviewed & no additional complaints except as documented Physical Exam General General appearance: alert and in no apparent distress Head Head exam: atraumatic and normocephalic Eye Eye exam: Present normal appearance, PERRL and EOMI ENT ENT exam: Present normal exam, normal oropharynx, mucous membranes moist and normal external ear exam Neck Neck exam: Present normal inspection, full ROM and trachea midline; Absent tenderness Chest Chest inspection: Present normal inspection and symmetric chest wall rise; Absent tenderness Respiratory Respiratory exam: Present normal lung sounds bilaterally; Absent respiratory distress, wheezes, stridor or accessory muscle use Cardiovascular Cardiovascular exam: Present regular rate and normal rhythm Abdominal Exam Abdominal exam: Present soft; Absent distention, tenderness or guarding Extremities Exam Extremities exam: Present full ROM, normal capillary refill and edema (Mild bilateral lower extremity edema); Absent tenderness Back Exam Back exam: Present normal inspection and full ROM; Absent tenderness Neurological Exam Neurological exam: Present alert, oriented X3, CN II-XII intact and normal gait; Absent motor sensory deficit Psychiatric Psychiatric exam: Present normal affect and normal mood Skin Skin exam: Present warm and dry HEART Score HEART Score HEART Score assessment performed?: Yes History (anamnesis): Highly suspicious ECG: Normal Age: >65 years Risk factors: Atherosclerosis history Troponin: </= normal limit HEART Score: 6 Critical Care Critical Care Time Critical Care Time: No Medical Decision Making [place] Inquiry Pt receiving controlled substance: No Vital Signs Vital Signs: 01/07/25 15:29 01/07/25 16:01 01/07/25 16:30 Temperature 98.4 F Temperature Source Oral Pulse Rate 77 74 Pulse Rate [Right Radial] 75 Respiratory Rate 15 13 Blood Pressure 148/72 H 129/58 L Blood Pressure [Right Arm] 135/72 Blood Pressure Mean [Right Arm] 93 Blood Pressure Source [Right Arm] Automatic Cuff Blood Pressure Position Blood Pressure Position [Right Arm] Supine 02 Sat by Pulse Oximetry 96 97 93 L Oxygen Delivery Method Room Air 01/07/25 17:02 01/07/25 18:00 01/07/25 19:06 Temperature Temperature Source Pulse Rate 79 73 72 Pulse Rate [Right Radial] Respiratory Rate 14 15 13 Blood Pressure 111/93 H 126/71 119/59 L Blood Pressure [Right Arm] Blood Pressure Mean [Right Arm] Blood Pressure Source [Right Arm] Blood Pressure Position Blood Pressure Position [Right Arm] 02 Sat by Pulse Oximetry 97 92 L 96 Oxygen Delivery Method 01/07/25 19:30 01/07/25 20:02 01/07/25 21:13 Temperature Temperature Source Pulse Rate 72 68 Pulse Rate [Right Radial] Respiratory Rate 22 18 Blood Pressure 132/70 96/42 L Blood Pressure [Right Arm] Blood Pressure Mean [Right Arm] Blood Pressure Source [Right Arm] Blood Pressure Position Blood Pressure Position [Right Arm] 02 Sat by Pulse Oximetry 98 95 Oxygen Delivery Method Room Air 01/07/25 21:26 Temperature 98.4 F Temperature Source Pulse Rate 55 L Pulse Rate [Right Radial] Respiratory Rate 16 Blood Pressure 96/42 L Blood Pressure [Right Arm] Blood Pressure Mean [Right Arm] Blood Pressure Source [Right Arm] Blood Pressure Position Sitting Blood Pressure Position [Right Arm] 02 Sat by Pulse Oximetry Oxygen Delivery Method Room Air Lab Data Labs: Lab Results 01/07/25 15:36: WBC 11.9 H, RBC 4.08 L, Hgb 12.0 L, Hct 37.0 L, MCV 90.7, MCH 29.4, MCHC 32.4, RDW 13.2, Plt Count 174, MPV 10.5 H, Neut % (Auto) 59.0, Lymph % (Auto) 25.0, [place] % (Auto) 8.8, Eos % (Auto) 6.5, Baso % (Auto) 0.4, Neut # (Auto) 7.0, Lymph # (Auto) 3.0, [place] # (Auto) 1.1 H, Eos # (Auto) 0.8 H, Baso # (Auto) 0.1, PT 11.4, INR 1.03, APTT 25.8, D-Dimer 0.97 H, Sodium 139, Potassium 5.0, Chloride 110 H, Carbon Dioxide 24, Anion Gap 10.0, BUN 44 H, Creatinine 2.60 H, Estimated Creat Clear 47, Estimated GFR 24 L, Est GFR ( Amer) 29 L, Glucose 156 H, Calcium 8.5, Total Bilirubin 0.2, AST 48, ALT 40, Alkaline Phosphatase 63, Troponin I < 0.01, NT-Pro-B Natriuret Pep 291, Total Protein 7.4, Albumin 4.0, Globulin 3.4 H, Albumin/Globulin Ratio 1.2, Lipase 53, HCV Ab RADHA w/Rflx PCR Qn Negative 01/07/25 18:26: Troponin I 0.01 01/07/25 19:36: Urine Color Yellow, Urine Appearance Clear, Urine pH 6.0, Ur Specific [place] 1.025, Urine Protein Negative, Urine Glucose (UA) Negative, Urine Ketones Negative, Urine Blood Negative, Urine Nitrate Negative, Urine Bilirubin Negative, Urine Urobilinogen 0.2, Ur Leukocyte Esterase Negative, Urine RBC 10-20, Urine WBC 3-5, Ur Squamous Epith Cells 10-20, Urine Bacteria 3+, Urine Mucus 1+ 01/07/25 15:36 01/07/25 15:36 Response Orders (Tests/Meds): ED MEDICATIONS Generic Name Dose Route Start Last Admin Trade Name Armani PRN Reason Stop Dose Admin Acetaminophen 650 mg 01/07/25 20:56 Acetaminophen 325mg Tab PO 02/06/25 20:55 Q4HP PRN Fever or Mild Pain (1-3) Heparin Sodium (Porcine) 5,000 unit 01/07/25 21:00 01/07/25 22:27 Heparin Sodium 5,000 Unit/Ml Vial SUBCUT 02/06/25 20:59 5,000 unit TID KIANA Administration Ondansetron HCl 4 mg 01/07/25 20:56 Ondansetron 4mg/2ml Vial IV 02/06/25 20:55 Q8HP PRN Nausea Discontinued Medications Generic Name Dose Route Start Last Admin Trade Name Armani PRN Reason Stop Dose Admin Acetaminophen 1,000 mg 01/07/25 15:35 01/07/25 15:43 Acetaminophen 500mg Tab PO 01/07/25 15:36 1,000 mg ONCE ONE Administration Belladonna Alkaloids 60 ml 01/07/25 15:35 01/07/25 15:43 Belladonna Alkaloids 60 Ml Ml PO 01/07/25 15:36 60 ml ONCE ONE Administration Lactated Ringer's 500 mls @ 999 mls/hr 01/07/25 16:24 01/07/25 16:46 Lactated Ringer's 500ml IV 01/07/25 16:54 999 mls/hr .Q31M ONE Administration Levofloxacin/Dextrose 750 mg in 150 mls @ 100 mls/hr 01/07/25 20:13 01/07/25 20:26 Levofloxacin 750mg/150ml Premix IV 01/07/25 21:42 100 mls/hr ONCE ONE Administration Iopamidol 80 ml 01/07/25 17:33 01/07/25 17:34 Iopamidol-370 (76%);100ml Bottle IV 01/07/25 17:34 80 ml ONCE ONE Administration Sodium Chloride 50 ml 01/07/25 17:33 01/07/25 17:34 0.9 % Sodium Chloride 50 Ml Vial IV 01/07/25 17:34 50 ml ONCE ONE Administration Sodium Chloride 10 ml 01/07/25 17:33 01/07/25 17:34 Sodium Chloride 0.9% 10ml Syr (Rad Only) IV 01/07/25 17:34 10 ml ONCE ONE Administration ORDERS Category Date Time Status CT angio abdomen pelvis Stat Cat Scan 01/07/25 16:57 Completed CTA Chest [CT angio chest PE protocol] Stat Cat Scan 01/07/25 16:57 Completed Cardiology Consult [Consult to Cardiology] [CONS] Cons 01/07/25 20:12 Active Routine CXR 2 view (NOT portable) [XR chest 2V] Stat Exams 01/07/25 15:34 Completed BNP [NT Pro Brain Natriuretic Pep.] Stat Lab 01/07/25 15:36 Completed Basic Metabolic Panel AMLAB Lab 01/08/25 06:00 Ordered Complete Blood Count Auto Diff AMLAB Lab 01/08/25 06:00 Ordered Complete Blood Count Auto Diff Stat Lab 01/07/25 15:36 Completed Comprehensive Metabolic Panel Stat Lab 01/07/25 15:36 Completed D-Dimer Stat Lab 01/07/25 15:36 Completed HIV Combo Stat Lab 01/07/25 15:36 Received Hepatitis C Ab Qual. W/ RFX Stat Lab 01/07/25 15:36 Completed Lipase Stat Lab 01/07/25 15:36 Completed PT INR [Prothrombin Time INR] Stat Lab 01/07/25 15:36 Completed PTT [Activated Partial Thrombo Time] Stat Lab 01/07/25 15:36 Completed Trop I [Troponin I] Stat Lab 01/07/25 15:36 Completed Troponin I Q3H Lab 01/07/25 18:26 Completed Troponin I Q3H Lab 01/07/25 22:26 Completed UA [Urinalysis and Microscopic] Stat Lab 01/07/25 19:36 Completed Blood Culture Stat Micro 01/07/25 21:01 Received Urine Culture Stat Micro 01/07/25 19:36 Received ECG Data Tracing #1: Attestation: I reviewed this ECG and interpreted as documented below: ECG Narrative: Sinus rhythm with right bundle branch block. Ventricular rate [address] changes concerning for STEMI. ECG initial impression date: 01/07/25 ECG initial impression time: 15:28 MDM Narrative Medical Decision Narrative: In summary, this patient is a 79-year-old male presenting to the Emergency Department for evaluation of chest pain that started around 2:00 PM. Differential diagnoses considered include but are not limited to PE, aortic dissection, GERD, costochondritis, esophageal spasm, ACS, GERD, unstable angina. Ruling out the most morbid conditions drove assessment. It should be noted patient's history includes obesity, CAD, hypertension, hyperlipidemia, diabetes which may not be at goal therapy. This complicates all aspects of care by increasing patient's risk for morbidity. I reviewed patient's past medical records and noted prior cardiac catheterization from September 2017 as detailed in HPI. On exam, the patient is sitting upright in no acute distress. He is feeling a little bit better but is still having some chest pain. Vitals are reassuring on cardiac telemetry with exception of mild hypertension. Cardiopulmonary dam is reassuring and he has equal pulses. Workup included CBC, CMP, troponin, D-dimer, BNP, lipase, chest x-ray, EKG. He was given aspirin with EMS prior to arrival. I administered GI cocktail and Tylenol here for further symptomatic improvement. I independently interpreted x-ray prior to the radiologist read and noted no large focal consolidation, no pneumothorax. Please see their read for final interpretation. Labs were obtained that demonstrated very mild leukocytosis, mild anemia. D-dimer is elevated. BUN and creatinine are elevated with a GFR of 24. He notes that his baseline GFR is around 27 after being as low as 12 in the past. Initial troponin is negative. On reassessment, patient had no improvement after administration of interventions above. He is still having chest pain. Vitals are reassuring cardiac telemetry and cardiopulmonary exam is reassuring as well. Patient then did note to me that he was having issues urinating yesterday and believes that he did not urinate yesterday at all. He notes that he then woke up every 2 hours last night to try and pee but feels like he is having a lot of trouble peeing. He notes that he feels like he cannot get the stream started. He states he is never had issues like this in the past. He was given a 500 cc bolus of IV fluids. Bladder scan was performed that did not demonstrate any significant urinary retention with only 54 mL in bladder, but he has urge to go and cannot. Given the patient's severe continued chest pain and new difficulty urinating, I elected to obtain CTA chest, abdomen, and pelvis. Risk versus benefit discussion was had with the patient regarding the risk of contrast in the setting of CKD I independently interpreted CT scans prior to radiology read and noted no PE, no aortic dissection.He also has no significant hydronephrosis. Please radiology read for final interpretation. Bladder scan was performed as 1929, as patient was still not able to urinate. He had 200 mL in the bladder at this time. At 1744, patient was placed in ED observation status pending second troponin, urinalysis to determine whether or not the patient would be appropriate for discharge versus admission. The patient was provided serial reevaluations and cardiac monitoring while awaiting ultimate disposition. On subsequent reassessment, the patient was finally able to urinate, the very small amount. Urine is concerning for possible infection, so he was started on Levaquin. I did send blood cultures and urine culture prior to this. Second opponent resulted and is 0.01, but I am concerned based on the patient's symptoms and persistent chest pain. I had an indirect discussion with Dr. Byers with cardiology who recommended admission for high risk chest pain. I had an interactive discussion with the hospitalist who admitted the patient in stable condition. Patient was admitted at 2114 after 3 hours and 30 minutes in ED observation
[2025-01-07] MEDS: BELLADONNA ALKALOIDS 60 ML ML PO (15:43)
[2025-01-07] MEDS: ACETAMINOPHEN 500MG TAB 1000 MG PO (15:43)
[2025-01-07 15:45] LABS: Basophils # 0.1 K/mm3 (0-0.2); Basophils % 0.4 % (0.1-2.0); Eosinophils # 0.8 Kmm3 (0.0-0.4); Eosinophils % 6.5 % (0.1-12.0); Immature Granulocytes # 0.04 10^3uL; Immature Granulocytes % 0.3 %; Mean Corpuscular HGB Conc 32.4 g/dL (31.8-35.4); Mean Corpuscular Hemoglobin 29.4 pg (27.0-31.2); Mean Corpuscular Volume 90.7 fl (80-94); Mean Platelet Volume 10.5 fl (7.4-10.4); Monocytes # 1.1 K/mm3 (0.1-1.0); Monocytes % 8.8 % (1.7-9.3); Nucleated Red Blood Cells # 0 10^3/uL; Nucleated Red Blood Cells % 0 %; Platelet Count 174 K/mm3 (142-424); Red Blood Count 4.08 M/mm3 (4.60-6.20); Red Cell Distribution Width 13.2 % (11.5-17.5); Red Cell Distribution Width-SD 43.7 fL; White Blood Count 11.9 K/mm3 (4.8-10.8)
[2025-01-07 15:49] LABS: Chloride 110 mmol/L (98-107); Sodium 139 mmol/L (136-145)
--- NOTE | 2025-01-07 15:51 | PC.NURSE ---
pt back to room from scan via wheelchair
[2025-01-07 15:52] LABS: Alanine Aminotransferase 40 U/L (12-78); Albumin/Globulin Ratio 1.2 (1.1-1.8); Alkaline Phosphatase 63 U/L (38-126); Aspartate Amino Transferase 48 U/L (17-59); Bilirubin,Total 0.2 mg/dl (0.2-1.3); Blood Urea Nitrogen 44 mg/dl (9-20); Carbon Dioxide 24 mmol/L (22.0-30.0); Creatinine Clearance Estimated 47 mL/min (50-200); Estimated Glomerular Filt Rate 24 ml/min (>60); GFR (African American) 29 ML/MIN (>60); Globulin 3.4 g/dL (1.3-3.2); Lipase 53 U/L (23-300); Total Protein,Serum 7.4 g/dl (6.3-8.2)
[2025-01-07 15:53] LABS: Calcium 8.5 mg/dl (8.4-10.2); Glucose 156 mg/dl (74-100)
[2025-01-07 15:59] LABS: Activated Partial Thrombo Time 25.8 seconds (22.8-30.6); INR 1.03 (0.9-1.1); Prothrombin Time 11.4 seconds (10.1-12.5)
[2025-01-07 16:03] LABS: NT Pro Brain Natriuretic Pep. 291 pg/mL (0-450)
[2025-01-07 16:05] LABS: D-Dimer 0.97 ug/mL (0.0-0.5)
[2025-01-07 16:19] LABS: Troponin I < 0.01 ng/ml (0.00-0.034)
[2025-01-07] MEDS: RINGERS SOLUTION,LACTATED 500 ML 999 ML IV (16:46)
--- NOTE | 2025-01-07 16:57 | CT_ITS ---
PROCEDURE INFORMATION: Exam: CTA Abdomen and Pelvis With Contrast Exam date and time: 01/07/2025 5:32 PM Age: 79 years old Clinical indication: Pain; Other: Chest/back; Additional info: Severe chest pain rad to back, can't pee TECHNIQUE: Imaging protocol: Computed tomographic angiography of the abdomen and pelvis with contrast. Exam focused on the arteries. 3D rendering (Not supervised by radiologist): MIP and/or 3D reconstructed images were created by the technologist. Radiation optimization: All CT scans at this facility use at least one of these dose optimization techniques: automated exposure control; mA and/or kV adjustment per patient size (includes targeted exams where dose is matched to clinical indication); or iterative reconstruction. Contrast material: ISOVUE 370; Contrast volume: 80 ml; Contrast route: INTRAVENOUS (IV); COMPARISON: CR XR HIP RT 2-3V W/PELVIS 06/03/2019 1:42 PM FINDINGS: Aorta: Moderate calcific atherosclerotic disease of the abdominal aorta without aneurysmal dilatation is present. 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 Renal arteries: No occlusion or significant stenosis. Right iliac arteries: No occlusion or significant stenosis. Left iliac arteries: No occlusion or significant stenosis. Liver: No mass. Gallbladder and biliary ducts: There are surgical clips within the gallbladder fossa. Pancreas: Unremarkable. No mass. No ductal dilation. Spleen: Unremarkable. No splenomegaly. Adrenal glands: Unremarkable. No mass. Kidneys and ureters: Unremarkable. No solid mass. No hydronephrosis. Stomach and bowel: Unremarkable. No obstruction. No mucosal thickening. Appendix: No evidence of appendicitis. Intraperitoneal space: Unremarkable. No free air. No significant fluid collection. Lymph nodes: Unremarkable. No enlarged lymph nodes. Urinary bladder: Unremarkable. No mass. Reproductive: Unremarkable as visualized. Bones/joints: Bilateral hip arthroplasty with metal artifact that obscures evaluation of the lower pelvis. Soft tissues: Unremarkable. 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
--- NOTE | 2025-01-07 16:57 | CT_ITS ---
PROCEDURE INFORMATION: Exam: CTA Chest With Contrast Exam date and time: 01/07/2025 5:32 PM Age: 79 years old Clinical indication: Radiating and sternal or substernal pain; Additional info: Severe chest pain rad to back, can't pee TECHNIQUE: Imaging protocol: Computed tomographic angiography of the chest with contrast. Exam focused on the arteries. 3D rendering (Not supervised by radiologist): MIP and/or 3D reconstructed images were created by the technologist. Radiation optimization: All CT scans at this facility use at least one of these dose optimization techniques: automated exposure control; mA and/or kV adjustment per patient size (includes targeted exams where dose is matched to clinical indication); or iterative reconstruction. Contrast material: ISOVUE 370; Contrast volume: 80 ml; Contrast route: INTRAVENOUS (IV); COMPARISON: CR XR CHEST 2V 01/07/2025 3:37 PM FINDINGS: Pulmonary arteries: Normal. No pulmonary emboli. Aorta: There is moderate calcific atherosclerotic disease of the thoracic aorta without aneurysmal dilatation. Lungs: Dependent bilateral lung base opacities favor atelectasis. Pleural spaces: Unremarkable. No pneumothorax. No pleural effusion. Heart: Unremarkable. No cardiomegaly. No pericardial effusion. Coronary arteries: Moderate three-vessel calcific atherosclerotic disease of the coronary arteries. Lymph nodes: Unremarkable. No enlarged lymph nodes. Bones/joints: Multiple left-sided healed rib fractures. Soft tissues: Unremarkable. Other findings: Motion artifacts slightly limits sensitivity and specificity of the examination. IMPRESSION: Moderate calcific atherosclerotic disease of the thoracic aorta without aneurysmal dilatation.
[2025-01-07 17:16] LABS: Hepatitis C Ab Qual. W/ RFX NEGATIVE (Negative)
[2025-01-07] MEDS: SODIUM CHLORIDE 0.9% 10ML SYR (RAD ONLY) 10 ML IV (17:34)
[2025-01-07] MEDS: IOPAMIDOL-370 (76%);100ML BOTTLE 80 ML IV (17:34)
[2025-01-07] MEDS: 0.9 % SODIUM CHLORIDE 50 ML VIAL IV (17:34)
--- NOTE | 2025-01-07 19:03 | PC.NURSE ---
Assumed care of patient at this time.
[2025-01-07 19:33] LABS: Troponin I 0.01 ng/ml (0.00-0.034)
--- NOTE | 2025-01-07 19:38 | PC.NURSE ---
urine collected and sent to the lab at this time.
[2025-01-07 19:40] LABS: Microscopic, Urine URINE MICROSCOPIC (MICROSCOPIC)
[2025-01-07 19:41] LABS: Appearance,Urine CLEAR (Clear); Bilirubin,Urine Negative (Negative); Blood, Urine Negative (Negative); Color,Urine YELLOW (Yellow); Glucose,Urine (UA) Negative (Negative); Ketones,Urine Negative (Negative); Leukocyte Esterase,Urine Negative (Negative); Nitrate,Urine Negative (Negative); Protein,Urine Negative (Negative); Specific Gravity, Urine 1.025 (1.005-1.030); Urobilinogen,Urine 0.2 EU/dl (0.2)
[2025-01-07 20:03] LABS: Bacteria,Urine 3+ /lpf; Mucus,Urine 1+ /lpf
[2025-01-07] MEDS: LEVOFLOXACIN/D5W 750 MG/150 ML 750 MG/150 ML PIGGYBACK 100 MG IV (20:26)
--- NOTE | 2025-01-07 20:42 | PC.NURSE ---
unsuccessful attempts at obtaining blood cultures, phlebotomy contacted in regards to attempt blood cultures.
--- NOTE | 2025-01-07 21:12 | PC.NURSE ---
attempt to call report at this time to 2nd floor, no bed assignment yet this RN to call back
--- NOTE | 2025-01-07 21:26 | PC.NURSE ---
Report given to Tiera ELLIS on the floor.
--- NOTE | 2025-01-07 22:03 | PC.NURSE ---
Patient arrived to floor via wheelchair from ED at 21:52.
[2025-01-07] MEDS: HEPARIN SODIUM 5,000 UNIT/ML VIAL 5000 UNIT SUBCUT (22:27)
[2025-01-07 23:08] LABS: Troponin I < 0.01 ng/ml (0.00-0.034)
--- NOTE | 2025-01-07 23:31 | P.HP_ITS ---
History of Present Illness *Admission Date: 01/07/25 *Reason for visit:: Chest pain *History of present illness: Patient is a 79-year-old male with past medical history of obesity hypertension hyperlipidemia atrial fibrillation diabetes mellitus CAD who presents to the hospital due to concerns of chest pain. According to the patient he was driving and started noticing pain in his left arm which radiated to left shoulder and later to his neck and jaw and chest. 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 Patient denied nausea vomiting. Patient otherwise denied fever chills diarrhea constipation dysuria. [facility] Disclaimer: The information contained in this section may have been updated after the patient was seen, as this information can be updated by other users. Medical History (Updated 01/07/25 @ 22:07 by Yamilex Peck RN) Osteoarthritis Surgical History (Updated 01/07/25 @ 22:07 by Yamilex Peck RN) History of hip replacement, total History of cholecystectomy Social History (Updated 01/07/25 @ 22:09 by Yamilex Peck RN) Smoking Status: Former smoker tobacco type: cigarettes packs per day: 1 years smoked: 48 smoking status stop date: 15 years ago second hand exposure: No alcohol intake: never substance use type: denies use current occupational status: retired Travel in the last 8 weeks?: None household members: spouse and none housing: house current occupational exposures/hazards: No caffeine: Yes Have you lived/traveled outside [place] in past 30 days?: No Contact w/someone who lives/traveled outside US past 30 days?: No Exposure to someone with infectious disease in past 14 days?: No Do you have a fever (greater than 100.4 F or 38 C)?: No Have you tested positive for COVID-19?: No Exposed to someone with COVID-19 in past 14 days?: No Do you have a sore throat?: No Do you have a cough?: No Do you have any weakness?: No Are you experiencing any nausea/vomitting?: No Do you have any diarrhea?: No Are you experiencing any unusual bleeding?: No Do you have any muscle aches/pain?: No Do you have any abdominal pain?: No Are you experiencing loss of taste or smell?: No Other Medical History Have you received the Flu Vaccine for this season: Yes Have you received the Pneumonia Vaccine: Yes Review of Systems Review of Systems Review of systems:: pertinent systems reviewed and negative unless documented below Meds Home Medications and Allergies Home Medications ?Medication ?Instructions ?Recorded ?Confirmed ?Type lisinopril 40 mg tablet 40 mg PO DAILY Hypertension 08/02/17 01/07/25 History gabapentin 300 mg capsule 600 mg PO BID NEUROPATHY 01/1401/07/25 History atorvastatin 20 mg tablet 20 mg PO DAILY . 09/07/18 History bisoprolol fumarate 5 mg tablet 0.5 tab PO DAILY #15 t abs 09/07/18 01/07/25 Rx metformin 1,000 mg tablet 500 mg PO BID . 09/07/1806/23 History pantoprazole 20 mg tablet,delayed 20 mg PO BID . 09/0701/07/25 History release New Prescriptions to Start Prescriptions: Allergies Allergy/AdvReac Type Severity Reaction Status Date / Time No Known Allergies Allergy Verified 06/03/19 14:20 Exam Data for Last 24 hours Vital signs and Labs for Last 24 Hours: Temp Pulse Resp BP Pulse Ox O2 Del Method 97.9 F 67 14 129/73 97 Room Air 01/07/25 22:00 01/07/25 22:00 01/07/25 22:00 01/07/25 22:00 01/07/25 22:00 01/07/25 22:00 Laboratory Results - last 24 hr 01/07/25 15:36: WBC 11.9 H, RBC 4.08 L, Hgb 12.0 L, Hct 37.0 L, MCV 90.7, MCH 29.4, MCHC 32.4, RDW 13.2, Plt Count 174, MPV 10.5 H, Neut % (Auto) 59.0, Lymph % (Auto) 25.0, [place] % (Auto) 8.8, Eos % (Auto) 6.5, Baso % (Auto) 0.4, Neut # (Auto) 7.0, Lymph # (Auto) 3.0, [place] # (Auto) 1.1 H, Eos # (Auto) 0.8 H, Baso # (Auto) 0.1, PT 11.4, INR 1.03, APTT 25.8, D-Dimer 0.97 H, Sodium 139, Potassium 5.0, Chloride 110 H, Carbon Dioxide 24, Anion Gap 10.0, BUN 44 H, Creatinine 2.60 H, Estimated Creat Clear 47, Estimated GFR 24 L, Est GFR ( Amer) 29 L, Glucose 156 H, Calcium 8.5, Total Bilirubin 0.2, AST 48, ALT 40, Alkaline Phosphatase 63, Troponin I < 0.01, NT-Pro-B Natriuret Pep 291, Total Protein 7.4, Albumin 4.0, Globulin 3.4 H, Albumin/Globulin Ratio 1.2, Lipase 53, HCV Ab RADHA w/Rflx PCR Qn Negative 01/07/25 18:26: Troponin I 0.01 01/07/25 19:36: Urine Color Yellow, Urine Appearance Clear, Urine pH 6.0, Ur Specific [place] 1.025, Urine Protein Negative, Urine Glucose (UA) Negative, Urine Ketones Negative, Urine Blood Negative, Urine Nitrate Negative, Urine Bilirubin Negative, Urine Urobilinogen 0.2, Ur Leukocyte Esterase Negative, Urine RBC 10-20, Urine WBC 3-5, Ur Squamous Epith Cells 10-20, Urine Bacteria 3+, Urine Mucus 1+ 01/07/25 22:26: Troponin I < 0.01 I & O for Last 24 hours: Intake & Output 01/04/25 01/05/25 01/06/25 01/07/25 23:59 23:59 23:59 23:59 Weight 149.912 kg Constitutional Constitutional: no acute distress *Routine HEENT Exam Head: Present normocephalic Eye: Present EOMI and PERRL ENT: Present mucous membranes moist *Routine Neck Exam Neck: Present supple; Absent lymphadenopathy *Routine Respiratory Exam Respiratory: Present CTA bilaterally *Routine Cardiovascular Exam Cardiovascular: Present RRR *Routine Abdominal Exam Abdominal: Present soft and normoactive bowel sounds; Absent tenderness *Routine Rectal Exam Rectal:: deferred *Routine Genitalia Exam Genitalia:: deferred *Routine Extremities Exam Extremities: Absent cyanosis, clubbing or edema *Routine Skin Exam Skin: Present warm; Absent rash *Routine Neurological Exam Neurological: Present alert and oriented X3 Assessment and Plan *Assessment and plan (1) CKD (chronic kidney disease): Status: Acute Category: Medical Code(s): N18.9 - Chronic kidney disease, unspecified (2) Obesity (BMI 30-39.9): Status: Acute Category: Medical Code(s): E66.9 - Obesity, unspecified (3) Chest pain: Status: Acute Qualifiers: Chest pain type: other chest pain Qualified Code(s): R07.89 - Other chest pain; R07.8 - Other chest pain Category: Medical Code(s): R07.9 - Chest pain, unspecified (4) CAD (coronary artery disease): Status: Chronic Category: Medical Code(s): I25.10 - Atherosclerotic heart disease of [place] coronary artery without angina pectoris (5) Unstable angina: Status: Acute Category: Medical Code(s): I20.0 - Unstable angina (6) Hypertension: Status: Chronic Category: Medical Code(s): I10 - Essential (primary) hypertension Plan Patient is a 79-year-old male with past medical history of obesity hypertension hyperlipidemia atrial fibrillation diabetes mellitus CAD who presents to the hospital due to concerns of chest pain. According to the patient he was driving and started noticing pain in his left arm which radiated to left shoulder and later to his neck and jaw and chest. 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 Patient denied nausea vomiting. Patient otherwise denied fever chills diarrhea constipation dysuria. Assessment and plan Chest pain rule out ACS History of CAD N.p.o. after midnight Check echocardiogram Consult cardiology Started on atorvastatin bisoprolol, lisinopril, aspirin Cardiology was called from the emergency department, they recommended admission Monitor on cardiac telemetry Elevated creatinine suspect CKD Creatinine on arrival 2.6, unknown baseline, reportedly patient's creatinine was 1.15 in 2019 Monitor creatinine Chronic medical conditions Hypertension Hyperlipidemia Atrial fibrillation - Resume home bisoprolol, aspirin, statin urinary frequency UTI-patient was given Levaquin in the emergency department Check urine cultures started on levaquin in ED, will continue DVT prophylaxis-heparin, defer anticoagulation to cardiology team
[2025-01-08] VITALS: PULSE 60
[2025-01-08 04:00] VITALS: BP 152/83; PULSE 66; PULSE 70; RESP 14; TEMP 36.6; O2SAT 95; BMI 41.1
[2025-01-08 04:24] LABS: HIV Combo NEGATIVE (Negative)
--- NOTE | 2025-01-08 05:49 | CA_ITS ---
APPROVED REPORT EXAM: Comprehensive 2D, Doppler, and color-flow Echocardiogram Milker Machine: Wen Barros RT(R) Ht: 6 ft 3 in Wt: 329lbs BSA: 2.71 BP: 129/78 mmHg Indications: chest pain 2D Dimensions EF AP4 67.40 % GL Strain -22.9 % M-Mode Dimensions RVDd 2.95 cm (0.9-2.6) LA Diam 3.68 cm (1.9-4.0) LVDd 4.43 cm (3.5-5.7) LVDs 3.17 cm (3.5-5.7) IVSd 1.48 cm (0.6-1.1) PWd 1.16 cm (0.6-1.1) EF (Teich) 55.10% FS 28.40% EDV (Teich) 89.10 mL ESV (Teich) 40.00 mL LV Diastology E Decel Time 267 (160-240 msec) E/A Ratio 0.6 Mitral Valve MV E Max Topher. 75.0 (40-130 cm/s) MV A Velocity 127.0 (40-130 cm/s) E/A Ratio 0.59 MV PHT 78.0 ms Left Ventricle The left ventricle is normal size. The left ventricular systolic function is normal. The left ventricular ejection fraction is within the normal range. There is increased LV wall thickness. There is normal LV segmental wall motion. Transmitral Doppler flow pattern suggests impaired LV relaxation. LVEF is 60%. Right Ventricle Right ventricle is mildly dilated. The right ventricular systolic function is normal. Atria The left atrium size is normal. The right atrium size is normal. There is no Doppler evidence of interatrial shunt. Aortic Valve The aortic valve is mildly thickened. There is no aortic valvular stenosis. No aortic regurgitation is present. Mitral Valve The mitral valve is normal in structure. No evidence of mitral valve stenosis. Trace mitral regurgitation. Tricuspid Valve Tricuspid valve is grossly normal in structure and function. Trace tricuspid regurgitation. There is insufficient TR jet to estimate RVSP. Pulmonic Valve The pulmonary valve is normal in structure. Trace pulmonic regurgitation. Great Vessels The aortic root is normal in size. IVC is normal in size and collapses >50% with inspiration. Pericardium There is no pericardial effusion. Other Information Study Quality: Fair Conclusion Normal biventricular systolic function. Mild RV dilation. No significant valvular stenosis or regurgitation. Electronically signed by : Kat Berg MD 01/08/2025 12:27:32
--- NOTE | 2025-01-08 06:40 | PC.NURSE ---
Pt has not voiced any complaints of chest pain to staff throughout shift. Pt has rested well in bed. Tolerating RA well with sat mid 90s. Call light within reach.
[2025-01-08 06:49] LABS: Basophils # 0.1 K/mm3 (0-0.2); Basophils % 0.5 % (0.1-2.0); Eosinophils # 0.7 Kmm3 (0.0-0.4); Hematocrit 35.2 % (42.0-52.0); Hemoglobin 10.8 g/dL (14.1-18.0); Immature Granulocytes # 0.04 10^3uL; Immature Granulocytes % 0.4 %; Lymphocytes # 2.7 K/mm3 (0.7-4.5); Lymphocytes % 28.3 % (10-50); Mean Corpuscular HGB Conc 30.7 g/dL (31.8-35.4); Mean Corpuscular Hemoglobin 28.1 pg (27.0-31.2); Mean Corpuscular Volume 91.4 fl (80-94); Mean Platelet Volume 10.9 fl (7.4-10.4); Monocytes # 0.9 K/mm3 (0.1-1.0); Monocytes % 9.4 % (1.7-9.3); Neutrophils # 5.3 K/mm3 (1.8-7.8); Neutrophils % 54.4 % (37.0-80.0); Nucleated Red Blood Cells # 0 10^3/uL; Nucleated Red Blood Cells % 0 %; Platelet Count 152 K/mm3 (142-424); Red Blood Count 3.85 M/mm3 (4.60-6.20); Red Cell Distribution Width 13.2 % (11.5-17.5); Red Cell Distribution Width-SD 44.5 fL; White Blood Count 9.7 K/mm3 (4.8-10.8)
[2025-01-08 07:04] LABS: Chloride 109 mmol/L (98-107); Sodium 139 mmol/L (136-145)
[2025-01-08 07:05] LABS: Potassium 4.9 mmoL/L (3.5-5.1)
[2025-01-08 07:07] LABS: Blood Urea Nitrogen 46 mg/dl (9-20); Creatinine Clearance Estimated 49 mL/min (50-200); Estimated Glomerular Filt Rate 25 ml/min (>60); GFR (African American) 30 ML/MIN (>60)
[2025-01-08 07:08] LABS: Anion Gap 10.9 mEq/L (5-15); Calcium 9.5 mg/dl (8.4-10.2); Carbon Dioxide 24 mmol/L (22.0-30.0); Glucose 121 mg/dl (74-100)
[2025-01-08 08:00] VITALS: BP 185/84; BP 186/64; PULSE 69; PULSE 70; RESP 16; TEMP 36.8; O2SAT 96
--- NOTE | 2025-01-08 08:10 | PC.NURSE ---
This SRNA obtained a high blood pressure reading automatically. SRNA obtained manual blood pressure reading of 186/64. RN notified.
--- NOTE | 2025-01-08 08:33 | EXP.CARD.CON ---
History of Present Illness History of Present Illness Consult date: 01/08/25 Chief complaint: CP and arm pain History of present illness: 79 yo WM with hx of nonobstructive CAD on [facility] in 2018. Also has PAF, BMI 41, Htn, DM. Pt states yesterday while driving he had sudden onset of severe left arm pain which radiated to his neck and jaw and eventually to his left chest. Symptoms lasted about 10-15 minutes. By the time he finished driving home he called EMS and was transported to ER. Serial Trop, EKG, and CTA all unremarkable but given his risk factors and severity of symptoms was admitted overnight for observation. This AM he denies any further symptoms - states this was a one time episode and not associated with palpitations, neck pain, or GI symptoms. [facility] Disclaimer: The information contained in this section may have been updated after the patient was seen, as this information can be updated by other users. Medical History Osteoarthritis Surgical History History of hip replacement, total History of cholecystectomy Social History Smoking Status: Former smoker tobacco type: cigarettes packs per day: 1 years smoked: 48 smoking status stop date: 15 years ago second hand exposure: No alcohol intake: never substance use type: denies use current occupational status: retired Travel in the last 8 weeks?: None household members: spouse and none housing: house current occupational exposures/hazards: No caffeine: Yes Have you lived/traveled outside [place] in past 30 days?: No Contact w/someone who lives/traveled outside US past 30 days?: No Exposure to someone with infectious disease in past 14 days?: No Do you have a fever (greater than 100.4 F or 38 C)?: No Have you tested positive for COVID-19?: No Exposed to someone with COVID-19 in past 14 days?: No Do you have a sore throat?: No Do you have a cough?: No Do you have any weakness?: No Are you experiencing any nausea/vomitting?: No Do you have any diarrhea?: No Are you experiencing any unusual bleeding?: No Do you have any muscle aches/pain?: No Do you have any abdominal pain?: No Are you experiencing loss of taste or smell?: No Review of Systems Constitutional Constitutional: Denies fatigue and Denies weakness Eyes Eyes: Denies loss of vision ENT Ears, Nose, Mouth, and Throat: Denies hearing loss and Denies vertigo *Cardiovascular Cardiovascular: Reports chest pain, Denies dyspnea and Denies syncope *Respiratory Respiratory: Denies cough and Denies dyspnea *Gastrointestinal Gastrointestinal: Denies change in stool character, Denies nausea and Denies vomiting *Genitourinary Genitourinary: Denies difficulty urinating *Musculoskeletal Musculoskeletal: Denies muscle weakness Integumentary/Breasts Skin/Breast: Denies changing lesions *Neurologic Neurologic: Denies loss of vision, Denies syncope, Denies vertigo and Denies weakness Endocrine Endocrine: Denies fatigue Exam Data for Last 24 hours Vital signs and Labs for Last 24 Hours: Temp Pulse Resp BP Pulse Ox O2 Del Method 98.2 F 69 16 185/84 H 96 Room Air 01/08/25 08:00 01/08/25 08:00 01/08/25 08:00 01/08/25 08:00 01/08/25 08:00 01/08/25 08:00 Laboratory Results - last 24 hr 01/07/25 15:36: WBC 11.9 H, RBC 4.08 L, Hgb 12.0 L, Hct 37.0 L, MCV 90.7, MCH 29.4, MCHC 32.4, RDW 13.2, Plt Count 174, MPV 10.5 H, Neut % (Auto) 59.0, Lymph % (Auto) 25.0, [place] % (Auto) 8.8, Eos % (Auto) 6.5, Baso % (Auto) 0.4, Neut # (Auto) 7.0, Lymph # (Auto) 3.0, [place] # (Auto) 1.1 H, Eos # (Auto) 0.8 H, Baso # (Auto) 0.1, PT 11.4, INR 1.03, APTT 25.8, D-Dimer 0.97 H, Sodium 139, Potassium 5.0, Chloride 110 H, Carbon Dioxide 24, Anion Gap 10.0, BUN 44 H, Creatinine 2.60 H, Estimated Creat Clear 47, Estimated GFR 24 L, Est GFR ( Amer) 29 L, Glucose 156 H, Calcium 8.5, Total Bilirubin 0.2, AST 48, ALT 40, Alkaline Phosphatase 63, Troponin I < 0.01, NT-Pro-B Natriuret Pep 291, Total Protein 7.4, Albumin 4.0, Globulin 3.4 H, Albumin/Globulin Ratio 1.2, Lipase 53, HCV Ab RADHA w/Rflx PCR Qn Negative, HIV Ag/Ab Combo Qual Negative 01/07/25 18:26: Troponin I 0.01 01/07/25 19:36: Urine Color Yellow, Urine Appearance Clear, Urine pH 6.0, Ur Specific [place] 1.025, Urine Protein Negative, Urine Glucose (UA) Negative, Urine Ketones Negative, Urine Blood Negative, Urine Nitrate Negative, Urine Bilirubin Negative, Urine Urobilinogen 0.2, Ur Leukocyte Esterase Negative, Urine RBC 10-20, Urine WBC 3-5, Ur Squamous Epith Cells 10-20, Urine Bacteria 3+, Urine Mucus 1+ 01/07/25 22:26: Troponin I < 0.01 01/08/25 05:40: WBC 9.7, RBC 3.85 L, Hgb 10.8 L, Hct 35.2 L, MCV 91.4, MCH 28.1, MCHC 30.7 L, RDW 13.2, Plt Count 152, MPV 10.9 H, Neut % (Auto) 54.4, Lymph % (Auto) 28.3, [place] % (Auto) 9.4 H, Eos % (Auto) 7.0, Baso % (Auto) 0.5, Neut # (Auto) 5.3, Lymph # (Auto) 2.7, [place] # (Auto) 0.9, Eos # (Auto) 0.7 H, Baso # (Auto) 0.1, Sodium 139, Potassium 4.9, Chloride 109 H, Carbon Dioxide 24, Anion Gap 10.9, BUN 46 H, Creatinine 2.50 H, Estimated Creat Clear 49, Estimated GFR 25 L, Est GFR ( Amer) 30 L, Glucose 121 H D, Calcium 9.5 I & O for Last 24 hours: Intake & Output 01/05/25 01/06/25 01/07/25 01/08/25 23:59 23:59 23:59 23:59 Intake Total 60 / 60 Output Total 0 / 0 0 / 0 Balance 0 / 60 60 / 60 Weight 330 lb 8 oz 330 lb 7.99 oz Constitutional Constitutional: no acute distress and cooperative *Routine HEENT Exam Eye: Present PERRL *Routine Respiratory Exam Respiratory: Present CTA bilaterally; Absent accessory muscle use, wheezes or crackles *Routine Cardiovascular Exam Cardiovascular: Present RRR, Normal S1 and Normal S2; Absent murmur, gallop or rubs *Routine Abdominal Exam Abdominal: Present soft; Absent tenderness *Routine Extremities Exam Extremities: Present pulses intact; Absent cyanosis or edema *Routine Skin Exam Skin: Present intact; Absent erythema or wounds Comments: 6cm slow healing lesion right scapular region - does not appear infected *Routine Neurological Exam Neurological: Present alert and oriented X3 Routine Psychiatric Exam Psychiatric: Present cooperative Meds Home Medications and Allergies Home Medications ?Medication ?Instructions ?Recorded ?Confirmed ?Type lisinopril 40 mg tablet 40 mg PO DAILY 08/02/17 01/07/25 History gabapentin 300 mg capsule 600 mg PO BID 06/04/18 01/07/25 History atorvastatin 40 mg tablet 20 mg PO HS 01/08/25 01/08/25 History carvedilol 25 mg tablet 25 mg PO BID 01/08/25 01/08/25 History metformin 500 mg tablet 500 mg PO BID 01/08/25 01/08/25 History pantoprazole 40 mg tablet,delayed 40 mg PO BID 01/08/25 01/08/25 History release (Protonix) spironolactone 25 mg tablet 25 mg PO DAILY 01/08/25 01/08/25 History New Prescriptions to Start Prescriptions: Allergies Allergy/AdvReac Type Severity Reaction Status Date / Time No Known Allergies Allergy Verified 06/03/19 14:20 Assessment and Plan *Assessment and plan (1) Atypical angina: Status: Acute Category: Medical Code(s): I20.89 - Other forms of angina pectoris (2) Paroxysmal atrial fibrillation: Status: Acute Category: Medical Code(s): I48.0 - Paroxysmal atrial fibrillation (3) Hypertension: Status: Chronic Category: Medical Code(s): I10 - Essential (primary) hypertension Plan CAD with Atypical Angina - single episode of severe left chest pain radiating to left arm, neck, and jaw which began at rest and resolved spontaneously - normal serial trop - EKG - SR with RBBB - will check 2D ECHO - cont sq heparin, add ASA, resume home dose BB, statin, htn PAF - SR here - CHADsVASC = 5, on Eliquis 2.5mg BID - home with 2 week monitor Htn - elevated here, need to resume home meds DM-II - cont home dose metformin - check lipid panel Renal Insufficiency - Cr here is 2.6, prior was 1.1 but was in 2019 - pt unclear if he has CKD, says he had prior admission to [facility] with dehydration - nearly requiring dialysis. - hydrate with 500mL, dose adjust meds Morbid Obesity, BMI 41 - needs agressive weight loss via diet and exercise, consider OP GLP-1 CV stable this morning. Further plans pending ECHO results. ADDENDUM: ECHO shows normal Bi-V function and no WMA. He's had no further symptoms. CV stable to DC home on his home medications. He needs 2 week monitor placed prior to DC so we can monitor for arrhythmia. Return to ED with any changes, otherwise can f/u with his usual Campus Supervisor at [facility] promptly.
[2025-01-08 09:03] LABS: Cholesterol 139 mg/dl (140-200); HDL Cholesterol 28 mg/dl (40-60); Triglycerides 273 mg/dl (30-150); VLDL Cholesterol 55 mg/dL (0-40)
[2025-01-08 09:14] LABS: Direct LDL Cholesterol 56.38 mg/dL (100-129)
[2025-01-08] MEDS: ASPIRIN EC 81MG TABLET 81 MG PO (09:44)
[2025-01-08] MEDS: LISINOPRIL 20MG TABLET 40 MG PO (09:45)
[2025-01-08] MEDS: PANTOPRAZOLE 40MG TABLET 40 MG PO (09:45)
[2025-01-08] MEDS: HEPARIN SODIUM 5,000 UNIT/ML VIAL 5000 UNIT SUBCUT ×2 (09:47→14:02)
[2025-01-08 09:49] LABS: Hemoglobin A1C 6.9 % (4.0-6.0)
[2025-01-08] MEDS: GABAPENTIN 600MG TABLET 600 MG PO (09:51)
[2025-01-08 12:00] VITALS: BP 164/78; BP 184/79; PULSE 66; RESP 22; TEMP 36.7; O2SAT 96
[2025-01-08] MEDS: BISOPROLOL 5MG TABLET 2.5 MG PO (14:01)
[2025-01-08] MEDS: 0.9 % SODIUM CHLORIDE 500 ML 999 ML IV (14:02)
[2025-01-08 15:00] VITALS: BP 143/78; PULSE 87
--- NOTE | 2025-01-08 15:10 | EXP.DC.SUM ---
General Admission date:: 01/07/25 Discharge date: 01/08/25 HPI HPI HPI: Patient is a 79-year-old male with past medical history of obesity hypertension hyperlipidemia atrial fibrillation diabetes mellitus CAD who presents to the hospital due to concerns of chest pain. According to the patient he was driving and started noticing pain in his left arm which radiated to left shoulder and later to his neck and jaw and chest. Patient was able to pull up hand at his home and from there he came to the hospital. Patient denied nausea vomiting. Patient otherwise denied fever chills diarrhea constipation dysuria. Hospital Course Hospital Course Hospital Course: Patient is a 79-year-old male with past medical history of obesity hypertension hyperlipidemia atrial fibrillation diabetes mellitus CAD who presents to the hospital due to concerns of chest pain. According to the patient he was driving and started noticing pain in his left arm which radiated to left shoulder and later to his neck and jaw and chest. Patient was able to pull up hand at his home and from there he came to the hospital. Patient denied nausea vomiting. Patient otherwise denied fever chills diarrhea constipation dysuria. Did well overnight. No further chest pain morning. Cardiology evaluated. Doing well. Workup negative. Needs further management as an outpatient. Chest pain rule out ACS Atypical angina History of CAD Paroxysmal A-fib Hypertension - Patient presented with single episode of severe left chest pain radiating to left arm. Spontaneously resolved. Serial troponins evaluated, remained negative. EKG showed sinus rhythm with right bundle branch block. Echo obtained showing normal BiV function with no wall motion abnormalities. Cardiology evaluated. Recommend initiating goal-directed therapy with Lipitor nightly while continuing carvedilol 25 mg twice daily, continuing lisinopril 40 mg daily. Initiating spironolactone 25 mg daily and aspirin 81 mg daily. - Rate controlled. [id number] of 5. Continue Eliquis 2.5 mg twice daily. Recommend 2-week event monitor at discharge. - [facility] 2 Diabetes. A1c 6.9, continue home metformin. Lipid panel obtained with LDL of 56. Total cholesterol 139 and triglycerides 273. CKD Creatinine remained stable at 2.5. BUN 46. Morbid Obesity, BMI 41 - needs agressive weight loss via diet and exercise, consider OP GLP-1 as an outpatient. Exam Data for Last 24 hours Vital signs and Labs for Last 24 Hours: Temp Pulse Resp BP Pulse Ox O2 Del Method 98.1 F 66 22 164/78 H 96 Room Air 01/08/25 12:00 01/08/25 12:00 01/08/25 12:00 01/08/25 12:00 01/08/25 12:00 01/08/25 12:00 Laboratory Results - last 24 hr 01/07/25 15:36: WBC 11.9 H, RBC 4.08 L, Hgb 12.0 L, Hct 37.0 L, MCV 90.7, MCH 29.4, MCHC 32.4, RDW 13.2, Plt Count 174, MPV 10.5 H, Neut % (Auto) 59.0, Lymph % (Auto) 25.0, Hettinger % (Auto) 8.8, Eos % (Auto) 6.5, Baso % (Auto) 0.4, Neut # (Auto) 7.0, Lymph # (Auto) 3.0, Hettinger # (Auto) 1.1 H, Eos # (Auto) 0.8 H, Baso # (Auto) 0.1, PT 11.4, INR 1.03, APTT 25.8, D-Dimer 0.97 H, Sodium 139, Potassium 5.0, Chloride 110 H, Carbon Dioxide 24, Anion Gap 10.0, BUN 44 H, Creatinine 2.60 H, Estimated Creat Clear 47, Estimated GFR 24 L, Est GFR ( Amer) 29 L, Glucose 156 H, Calcium 8.5, Total Bilirubin 0.2, AST 48, ALT 40, Alkaline Phosphatase 63, Troponin I < 0.01, NT-Pro-B Natriuret Pep 291, Total Protein 7.4, Albumin 4.0, Globulin 3.4 H, Albumin/Globulin Ratio 1.2, Lipase 53, HCV Ab RADHA w/Rflx PCR Qn Negative, HIV Ag/Ab Combo Qual Negative 01/07/25 18:26: Troponin I 0.01 01/07/25 19:36: Urine Color Yellow, Urine Appearance Clear, Urine pH 6.0, Ur Specific [place] 1.025, Urine Protein Negative, Urine Glucose (UA) Negative, Urine Ketones Negative, Urine Blood Negative, Urine Nitrate Negative, Urine Bilirubin Negative, Urine Urobilinogen 0.2, Ur Leukocyte Esterase Negative, Urine RBC 10-20, Urine WBC 3-5, Ur Squamous Epith Cells 10-20, Urine Bacteria 3+, Urine Mucus 1+ 01/07/25 22:26: Troponin I < 0.01 01/08/25 05:40: WBC 9.7, RBC 3.85 L, Hgb 10.8 L, Hct 35.2 L, MCV 91.4, MCH 28.1, MCHC 30.7 L, RDW 13.2, Plt Count 152, MPV 10.9 H, Neut % (Auto) 54.4, Lymph % (Auto) 28.3, Hettinger % (Auto) 9.4 H, Eos % (Auto) 7.0, Baso % (Auto) 0.5, Neut # (Auto) 5.3, Lymph # (Auto) 2.7, Hettinger # (Auto) 0.9, Eos # (Auto) 0.7 H, Baso # (Auto) 0.1, Sodium 139, Potassium 4.9, Chloride 109 H, Carbon Dioxide 24, Anion Gap 10.9, BUN 46 H, Creatinine 2.50 H, Estimated Creat Clear 49, Estimated GFR 25 L, Est GFR ( Amer) 30 L, Glucose 121 H D, Calcium 9.5 01/08/25 06:40: Hemoglobin A1c 6.9 H, Triglycerides 273 H, Cholesterol 139 L, LDL Cholesterol Direct 56.38 L, VLDL Cholesterol 55 H, HDL Cholesterol 28 L, Cholesterol/HDL Ratio 5.0 H I & O for Last 24 hours: Intake & Output 01/05/25 01/06/25 01/07/25 01/08/25 23:59 23:59 23:59 23:59 Intake Total 420 / 420 Output Total 0 / 0 840 / 840 Balance 0 / 60 -420 / -420 Weight 149.912 kg 149.912 kg Constitutional Constitutional: no acute distress, morbidly obese, chronically ill appearing and cooperative *Routine HEENT Exam Head: Present normocephalic and atraumatic Eye: Present EOMI and PERRL ENT: Present mucous membranes moist *Routine Neck Exam Neck: Present supple *Routine Respiratory Exam Respiratory: Present CTA bilaterally; Absent accessory muscle use, wheezes or crackles *Routine Cardiovascular Exam Cardiovascular: Present RRR, Normal S1 and Normal S2; Absent murmur, gallop or rubs *Routine Abdominal Exam Abdominal: Present soft; Absent tenderness *Routine Rectal Exam Patient deferred: visual exam *Routine Exam Patient deferred: penile exam *Routine Extremities Exam Extremities: Present pulses intact; Absent cyanosis or edema Routine Back/Spine/Pelvis Exam Comments: Healing scabbed wound with granulation tissue right upper back. no warmth *Routine Skin Exam Skin: Present intact; Absent erythema or wounds Comments: 6cm slow healing lesion right scapular region - does not appear infected; seborrheic keratoses *Routine Neurological Exam Neurological: Present alert, oriented X3 and moving all extremities; Absent altered mental status Routine Psychiatric Exam Psychiatric: Present cooperative Results Data Completed and Pending Labs on day of discharge: Labs from last 24 hours 01/08/25 01/08/25 01/07/25 06:40 05:40 22:26 WBC 9.7 RBC 3.85 L Hgb 10.8 L Hct 35.2 L MCV 91.4 MCH 28.1 MCHC 30.7 L RDW 13.2 Plt Count 152 MPV 10.9 H Neut % (Auto) 54.4 Lymph % (Auto) 28.3 Hettinger % (Auto) 9.4 H Eos % (Auto) 7.0 Baso % (Auto) 0.5 Neut # (Auto) 5.3 Lymph # (Auto) 2.7 Hettinger # (Auto) 0.9 Eos # (Auto) 0.7 H Baso # (Auto) 0.1 PT INR APTT D-Dimer Sodium 139 Potassium 4.9 Chloride 109 H Carbon Dioxide 24 Anion Gap 10.9 BUN 46 H Creatinine 2.50 H Estimated Creat Clear 49 Estimated GFR 25 L Est GFR ( Amer) 30 L Glucose 121 H D Hemoglobin A1c 6.9 H Calcium 9.5 Total Bilirubin AST ALT Alkaline Phosphatase Troponin I < 0.01 NT-Pro-B Natriuret Pep Total Protein Albumin Globulin Albumin/Globulin Ratio Triglycerides 273 H Cholesterol 139 L LDL Cholesterol Direct 56.38 L VLDL Cholesterol 55 H HDL Cholesterol 28 L Cholesterol/HDL Ratio 5.0 H Lipase Urine Color Urine Appearance Urine pH Ur Specific [place] Urine Protein Urine Glucose (UA) Urine Ketones Urine Blood Urine Nitrate Urine Bilirubin Urine Urobilinogen Ur Leukocyte Esterase Urine RBC Urine WBC Ur Squamous Epith Cells Urine Bacteria Urine Mucus HCV Ab RADHA w/Rflx PCR Qn HIV Ag/Ab Combo Qual 01/07/25 01/07/25 01/07/25 19:36 18:26 15:36 WBC 11.9 H RBC 4.08 L Hgb 12.0 L Hct 37.0 L MCV 90.7 MCH 29.4 MCHC 32.4 RDW 13.2 Plt Count 174 MPV 10.5 H Neut % (Auto) 59.0 Lymph % (Auto) 25.0 Hettinger % (Auto) 8.8 Eos % (Auto) 6.5 Baso % (Auto) 0.4 Neut # (Auto) 7.0 Lymph # (Auto) 3.0 Hettinger # (Auto) 1.1 H Eos # (Auto) 0.8 H Baso # (Auto) 0.1 PT 11.4 INR 1.03 APTT 25.8 D-Dimer 0.97 H Sodium 139 Potassium 5.0 Chloride 110 H Carbon Dioxide 24 Anion Gap 10.0 BUN 44 H Creatinine 2.60 H Estimated Creat Clear 47 Estimated GFR 24 L Est GFR ( Amer) 29 L Glucose 156 H Hemoglobin A1c Calcium 8.5 Total Bilirubin 0.2 AST 48 ALT 40 Alkaline Phosphatase 63 Troponin I 0.01 < 0.01 NT-Pro-B Natriuret Pep 291 Total Protein 7.4 Albumin 4.0 Globulin 3.4 H Albumin/Globulin Ratio 1.2 Triglycerides Cholesterol LDL Cholesterol Direct VLDL Cholesterol HDL Cholesterol Cholesterol/HDL Ratio Lipase 53 Urine Color Yellow Urine Appearance Clear Urine pH 6.0 Ur Specific [place] 1.025 Urine Protein Negative Urine Glucose (UA) Negative Urine Ketones Negative Urine Blood Negative Urine Nitrate Negative Urine Bilirubin Negative Urine Urobilinogen 0.2 Ur Leukocyte Esterase Negative Urine RBC 10-20 Urine WBC 3-5 Ur Squamous Epith Cells 10-20 Urine Bacteria 3+ Urine Mucus 1+ HCV Ab RADHA w/Rflx PCR Qn Negative HIV Ag/Ab Combo Qual Negative DS: Diagnosis Discharge Diagnosis (1) Atypical angina: Status: Acute Code(s): I20.89 - Other forms of angina pectoris (2) Paroxysmal atrial fibrillation: Status: Acute Code(s): I48.0 - Paroxysmal atrial fibrillation (3) Hypertension: Status: Chronic Code(s): I10 - Essential (primary) hypertension (4) CKD (chronic kidney disease): Status: Acute Code(s): N18.9 - Chronic kidney disease, unspecified (5) Morbid obesity with BMI of 40.0-44.9, adult: Status: Chronic Code(s): E66.01 - Morbid (severe) obesity due to excess calories; Z68.41 - Body mass index [BMI] 40.0-44.9, adult Meds Home Medications and Allergies Home Medications ?Medication ?Instructions ?Recorded ?Confirmed ?Type lisinopril 40 mg tablet 40 mg PO DAILY 08/02/17 01/07/25 History gabapentin 300 mg capsule 600 mg PO BID 06/04/18 01/07/25 History apixaban 2.5 mg tablet (Eliquis) 2.5 mg PO BID #60 tabs 01/08/25 Rx aspirin 81 mg tablet,delayed 81 mg PO DAILY 30 days #30 tabs 01/08/25 Rx release atorvastatin 40 mg tablet 20 mg PO HS 01/08/25 01/08/25 History carvedilol 25 mg tablet 25 mg PO BID 01/08/25 01/08/25 History metformin 500 mg tablet 500 mg PO BID 01/08/25 01/08/25 History pantoprazole 40 mg tablet,delayed 40 mg PO BID 01/08/25 01/08/25 History release (Protonix) spironolactone 25 mg tablet 25 mg PO DAILY 01/08/25 01/08/25 History New Prescriptions to Start Prescriptions: apixaban [Eliquis] Jerad Truong aspirin Jerad Truong Allergies Allergy/AdvReac Type Severity Reaction Status Date / Time No Known Allergies Allergy Verified 06/03/19 14:20 Discharge Plan Disposition Patient Disposition: Home, Self-Care Condition: Good Follow up Plan Follow up with: Milind Sims MD [Referring, Medical] - 01/16/25 11:15 am Prescriptions/Medication Reconciliation: New aspirin 81 mg Tablet,Delayed Release (Dr/Ec) 81 mg PO DAILY 30 Days Qty: 30 0RF Eliquis 2.5 mg tablet 2.5 mg PO BID Qty: 60 0RF Continued lisinopril 40 MG tablet 40 mg PO DAILY gabapentin 300 MG capsule 600 mg PO BID atorvastatin 40 mg Tablet 20 mg PO HS metformin 500 mg Tablet 500 mg PO BID carvedilol 25 mg Tablet 25 mg PO BID Rx Instructions: must administer with a meal/food spironolactone 25 mg Tablet 25 mg PO DAILY pantoprazole [Protonix] 40 mg Tablet,Delayed Release (Dr/Ec) 40 mg PO BID Problem Reconciliation Problems Reviewed?: Yes Patient Discharge Instructions ACTIVITY: Continue current activity DIET: continue same diet Patient Instructions: DI for Kidney Failure, DI for Atrial Fibrillation, DI for Chest Pain Print Language: Cymraes Providers Primary Care Provider: Provider,Referral Admit Provider: Jerad Truong Attending Provider: Jerad Truong
--- NOTE | 2025-01-08 15:45 | PC.NURSE ---
patient denied bisoprolol as a home med, held morning dose per patient request, patient bp was elevated at 180/90 this afternoon, gave morning dose of bisoprolol and rechecked bp 1hr later, bp 143/87.
--- NOTE | 2025-01-09 10:25 | SW/DCPLANNER ---
Spoke with patient on the phone. Patient stated that he is doing okay. Patient stated that he is aware of his upcoming appointment and that [facility] is going [facility] Patient stated that he was able to get his new medicine picked up from clinic pharmacy. Patient stated that he has no concerns or questions at this time. Douglas Santiago
== END 2025-01-08 16:46 | disposition home or self-care (01) ==
LOC: ER 20:34 → 2ND 21:13
PROVIDERS: Internal Medicine; Physician Assistant; Admitting Provider Internal Medicine Adolescent Medicine; Emergency Provider Emergency Medicine; Visit Provider Internal Medicine Adolescent Medicine
DX: I25.118 Atherosclerotic heart disease of native coronary artery with other forms of angina pectoris (principal); I48.0 Paroxysmal atrial fibrillation; E11.22 Type 2 diabetes mellitus with diabetic chronic kidney disease; I12.9 Hypertensive chronic kidney disease with stage 1 through stage 4 chronic kidney disease, or unspecified chronic kidney disease; N18.9 Chronic kidney disease, unspecified; Z79.84 Long term (current) use of oral hypoglycemic drugs; E78.5 Hyperlipidemia, unspecified; R33.9 Retention of urine, unspecified; N39.0 Urinary tract infection, site not specified; E66.01 Morbid (severe) obesity due to excess calories; Z68.41 Body mass index [BMI] 40.0-44.9, adult; Z87.891 Personal history of nicotine dependence; Z79.82 Long term (current) use of aspirin; Z79.01 Long term (current) use of anticoagulants; Z79.899 Other long term (current) drug therapy; Z79.891 Long term (current) use of opiate analgesic
CPT/HCPCS: 96365; 36415; 51798; 71046; 71275; 74174; 80048; 80053; 80061; 81001; 83036; 83690; 83880; 84484; 85025; 85378; 85610; 85730; 86803; 87040; 87086; 87389; 93005; 93225; 93227; 93306; G0378; J1644; J1956; J7040; J7120; Q9967

== ENCOUNTER 2025-01-12 13:48 | Outpatient (CLI) | payer MEDICARE, SELFPAY | END 2025-01-12 23:59 | disposition home or self-care (01) | LOC: RT 13:51 | PROVIDERS: Visit Provider Physician Assistant | DX: I48.0 Paroxysmal atrial fibrillation (principal); I48.92 Unspecified atrial flutter; I49.1 Atrial premature depolarization; I47.19 Other supraventricular tachycardia; I49.3 Ventricular premature depolarization; I47.29 Other ventricular tachycardia; Z95.810 Presence of automatic (implantable) cardiac defibrillator | CPT/HCPCS: 93270 ==

== ENCOUNTER 2025-03-02 03:39 | Emergency (ER) | payer MEDICARE, SELFPAY ==
--- OUTSIDE RECORDS SUMMARY | 2024-03-03 06:48 | XMS_ITS | Encounter Summary ---
Author Name [facility] [facility] [place] [facility] [place] Address [address] [place] [address] Care Team Providers Care Solder Making Supervisor Name Role Phone ESTELA DEJAN Primary Care Provider Unavailabl e Insurance Providers: All historical and current Section Date Range: From patient's date of to the date document was created. This section includes the names of all active insurance providers for the patient. Insurance Provider Type of Coverage Plan Name Start of Policy Coverage End of Policy Coverage Group Number Member ID Insurance Provider's Telephone Number Policy Hart's Name Patient's Relationship to Policy Ahrt RISSA RODRIGUEZ-[place] NOT [place] [employer] RISSA SHIRLEY Mar 04, 2012 RISSA RODRIGUEZ [id number] HERONNORMA RICHARDSE PATIENT [employer] [facility] (WNR) MEDICARE ADVANTAGE [facility](W NR) Jul 30, 2017 [id number] [phone] HERON,NORMA WELLINGTON PATIENT [employer] [facility] (WNR) MEDICARE ADVANTAGE [facility] (WNR) Jul 30, 2017 [id number] [phone] HERON,NORMA WELLINGTON PATIENT [employer] [facility] (WNR) [facility] MEDIC ARE BRAULIO Connell Jul 30, 2012 [id number] NORMA SHELBY PATIENT MEDICARE (WNR) MEDICARE (M) PART A Jul 30, 2017 PART A [id number] NORMA SHELBY PATIENT MEDICARE (WNR) MEDICARE (M) PART B Jul 30, 2017 PART B [id number] NORMA SHELBY PATIENT MEDICARE PART D (WNR) PRESCRIPT ION PART D Jul 30, 2017 PART D [id number] 50 NORMA SHELBY PATIENT MEDICARE PART D (WNR) MEDICARE (M) PART D Jul 30, 2017 PART D [id number] 50 NORMA SHELBY PATIENT MEDICARE PART D (WNR) MEDICARE (M) PART D Jul 30, 2017 PART D [id number] NORMA SHELBY PATIENT MEDICARE PART D (WNR) MEDICARE (M) PART D Jul 30, 2012 PART D [id number] NORMA SHELBY PATIENT Selected Encounter This section includes the information on record at [place] for the Encounter. Date/Time Encounter Type Encounter Description Reason Pro vider Source Mar 03, 2024 10:48 AM Outpatient Encounter ADMIN PAT ACTIVTIES ([facility]ASNONCT) I[facility] Encounter Template Text not used by [place] Plan of Treatment: Future Appointments (+ 6 months) and Future Tests (+/- 45 days) The Plan of Treatment section includes future care activities for the patient from all [place] treatmentfacilities. This section includes future appointments and future orders which are active, pending or scheduled. Future Appointments This section includes appointments that were scheduled to occur 6 months from the date of the Encounter, up to a maximum of 20 appointments. The data comes from all [place] treatment facilities. Appointment Date/Time Appointment Type Appointme nt Facility Name Mar 04, 2024 02:20 PM AMBULATORY - SURGERY [facility]IN G[facility] Apr 09, 2024 10:30 AM AMBULATORY - NONE [place] [facility] Apr 09, 2024 11:30 AM AMBULATORY - NONE [place] [facility] Apr 15, 2024 12:23 PM AMBULATORY - MEDICINE T[facility]MY [facility] Apr 15, 2024 05:00 PM AMBULATORY - NONE [place] [facility] May 05, 2024 02:15 PM AMBULATORY - MEDICINE TAMMY FREDY [facility] May 09, 2024 10:30 AM AMBULATORY - MEDICINE [facility] May 20, 2024 11:00 AM [facility] Jun 25, 2024 09:45 AM AMBULATORY - MEDICINE T[facility] Jul 08, 2024 01:40 PM AMBULATORY - SURGERY CARLOSIN MILANON [facility] Active, Pending, and Scheduled Orders This section includes a listing of several types of active, pending, and scheduled orders, including clinic medications orders, diagnostic test orders, procedure orders and consult orders; where the start date of the order is 45 days before the date of the Encounter or 45 days after the date of theEncounter. The data comes from all [place] treatment facilities. Test Date/Time Test Type Test Details Facility Name Apr 15, 2024 02:03 PM Laboratory - Chemi stry Order CBC/PLT [id number] BLOOD STAT WC ONCE [facility] Lab Results: +/- 30 days of the encounter This section includes the Chemistry and Hematology Lab Results on record with [place] for the patient. Radiology Reports and Pathology Reports are provided separately, in subsequent sections. Lab Results This section contains the Chemistry/Hematology Results that were resulted 30 days before or 30 daysafter the date of the Encounter. Date/Time Source Result Type Result - Unit Interpretation Reference Range Specimen Type Comment Feb 05, 2024 12:20 PM [facility] CBC/PLT BLOOD Specimen Type: BLOOD No comment entered. Ordering Provider: ADRIA SANCHEZ Report Released Date/Time: Oct 04, 2023 11:36 AM Reporting Lab: [facility] [address] [facility] [id number] Performing Lab: [address] [id number] WBC 12.9 10*3/uL H 5.0-10.0 RBC 4.25 10*6/uL L 4.6-6.2 HGB 12.3 g/dL L 14.0-18.0 HCT 37.8 L 42.0-52.0 MCV 88.9 fL 80.0-94.0 MCH 28.9 pg 27.0-31.0 MCHC 32.5 g/dL 32.0-36.0 PLT 197 10*3/uL 150-450 MPV 9.9 fL 9.0-13.1 RDW 13.5 11.0-16.0 NRBC 0.0 0.0-0.0 Feb 05, 2024 12:20 PM [facility] PANEL 4 PLASMA Specimen Type: PLASM A Comment: Estimated Glomerular Filtration Rate (eGFR) calculated using the 2020 Chronic Kidney Disease-Epidemiology (CKD-EPI) Collaboration creatinine equation; units of measure are mL/min/1.73 m2. Results are only valid for adults (>=18 years) whose serum creatinine is in a steady state. eGFR calculations are not valid for patients with acute kidney injury and for patients on dialysis. Creatinine-based estimates of kidney function may also be inaccurate in patients with reduced creatinine generation due to decreased muscle mass (e.g., malnutrition, severe hypoalbuminemia, sarcopenia, chronic neuromuscular disease, amputations, severe heart failure or liver disease) and in patients with increased creatinine generation due to increased muscle mass (e.g., muscle builders, anabolic steroids) or increased dietary intake. As drug clearance is proportional to total GFR and not GFR indexed to body surface area (BSA), in individuals with a BSA substantially different than 1.73 m2, drug dosing should be based on the reported eGFR value de-indexed from BSA by multiplying by the individual's BSA and dividing by 1.73. CKD is diagnosed based on abnormalities of kidney structure or function, present for >3 months, with implications for health and disease. CKD is classified and staged based on cause, eGFR and albuminuria (quantified as urine albumin to creatinine ratio). An eGFR >60 mL/min/1.73 m2 in the absence of increased urine albumin excretion or structural abnormalities does not represent CKD. eGFR CKD Interpretation (mL/min/1.73 m2) stage >=90 G1 Normal 60-89 G2 Mild decrease 45-59 G3A Mild to moderate decrease 30-44 G3B Moderate to severe decrease 15-29 G4 Severe decrease <15 G5 Kidney failure Ordering Provider: ADRIA SANCHEZ Report Released Date/Time: Oct 04, 2023 11:36 AM Reporting Lab: [facility] [address] [facility] [id number] Performing Lab: [facility] [address] [facility] [phone] CREATININE 1.88 mg/dL H 0.72-1.25 UREA NITROGEN 31 mg/dL H 9-25 GLUCOSE 107 mg/dL H 74-100 SODIUM 136 mmol/L 136-145 POTASSIUM 4.6 mmol/L 3.5-5.1 CHLORIDE 107 mmol/L 98-107 CO2 21 mmol/L L 22-29 CALCIUM 9.4 mg/dL 8.4-10.2 PHOSPHORUS 2.6 mg/dL 2.3-4.7 ALBUMIN 4.0 g/dL 3.5-5.2 ANION GAP 8 meq/L 3-19 eGFR (CKD-EPI) 36 Social History: Smoking Status (Most current) and Tobacco Use (All prior to encounter date) This section includes the most current, and the historical, smoking and tobacco- related health factors from the [place] facility where the Encounter took place. Current Smoking Status This section includes the most current smoking, or tobacco-related health factor, from the [place] facility where the Encounter took place. Date/Time Current Smoking Status Comment Facil ity December 08, 2008 06:50 PM V9 QUIT TOBACCO >7 YEARS AGO [facility] Tobacco Use History This section includes a history of the smoking, or tobacco-related health factors, that were collected on or before the date of the Encounter. The data comes from the [place] facility where the Encounter took place. 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 [address] [place] [address] Sep 19, 2005 02:18 PM HF V9 CURRENT SMOKER SMOKES ABOUT 1/2 PPD [facility] Feb 07, 2005 02:38 PM HF 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 Date/Time Encounter Note(s) Provider Source Mar 03, 2024 10:48 AM PHARMACY NOTE: LOCAL TITLE: [facility] STANDARD TITLE: PHARMACY NOTE DATE OF NOTE: MAR 03, 2024@10:48 ENTRY DATE: MAR 03, 2024@10:48:12 AUTHOR: KATI MORALES EXP COSIGNER: URGENCY: STATUS: COMPLETED [facility] R[facility] Has ADDENDA Signature Ready Order Progress Note Date Title Author (and Author's Title) MAY 08, 2023@13:47 PC PROGRESS NOTE DEJAN GUTIERREZ (STAFF PHYSICIA 1) Rx#: [id number] PANTOPRAZOLE NA 40MG EC TAB 2) Rx#: 3) Rx#: 4) Rx#: 5) Rx#: Original Prescriber: Pharmacy received request via: phone /arleth/ Kati Morales CPhT Pharmacy Music Engraver Signed: 03/03/2024 10:48 03/03/2024 ADDENDUM STATUS: COMPLETED due for recall before mid mar refill indicated again. /arleth/ Dejan Gutierrez MD Primary Care Attending Signed: 03/03/2024 11:44 KATI MORALES [facility]
--- OUTSIDE RECORDS SUMMARY | 2024-04-09 06:30 | XMS_ITS | Encounter Summary ---
Author Name [facility] [place] [facility] [place] [place] [facility] [place] Address [address] [place] [address] Care Team Providers Care Roller Engraver Name Role Phone ESTELA DEJAN Primary Care [...] Policy Hart's Name Patient's Relationship to Policy Hart RISSA RODRIGUEZ-[place] LL NOT [facility] RISSA SHIRLEY Mar 04, 2012 RISSA RODRIGUEZ [id number] HERONNORMA RICHARDSE PATIENT [employer]MANA [facility] (WNR) MEDICARE ADVANTAGE [facility](W NR) Jul 30, 2017 [id number] [phone] HERON,NORMA WELLINGTON PATIENT [employer] [facility] (WNR) MEDICARE ADVANTAGE [facility] (WNR) Jul 30, 2017 [id number] HERON,NORMAJoel GODOYE PATIENT [employer] [facility] (WNR) [facility] MEDIC ARE BRAULIO Connell Jul 30, 2012 [id number] NORMA SHELBY PATIENT MEDICARE (WNR) MEDICARE (M) PART A Jul 30, 2017 PART A [id number] NORMA SHELBY PATIENT MEDICARE (WNR) MEDICARE (M) PART B Jul 30, 2017 PART B [id number] NORMA SHELBY PATIENT MEDICARE PART D (WNR) PRESCRIPT ION PART D Jul 30, 2017 PART D [id number] NORMA SHELBY PATIENT MEDICARE PART D (WNR) MEDICARE (M) PART D Jul 30, 2017 PART D [id number] NORMA SHELBY PATIENT MEDICARE PART D (WNR) MEDICARE (M) PART D Jul 30, 2017 PART D [id number] NORMA SHELBY PATIENT MEDICARE PART D (WNR) MEDICARE (M) PART D Jul 30, 2012 PART D [id number] NORMA SHELBY PATIENT Selected Encounter This section includes the information on record at [place] for the Encounter. 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 DEJAN GUTIERREZ [facility] Apr 17, 2024 12:08 PM SECONDARY Body mass index [BMI] 40.0-44.9, adult DEJAN GUTIERREZ [facility] Apr 17, 2024 12:08 PM SECONDARY Chronic kidney disease, stage 3 unspecified DEAJN GUTIERREZ [facility] Apr 17, 2024 12:08 PM SECONDARY Dependence on other enabling machines and devices STONE,DEJAN Márquez [facility] Apr 17, 2024 12:08 PM SECONDARY Dyspnea, unspecified STONE,DEJAN Márquez [facility] Apr 17, 2024 12:08 PM SECONDARY Encounter for immunization YURY ZELAYA [facility] Apr 17, 2024 12:08 PM SECONDARY group home (current) use of anticoagulants ESTELA,DEJAN Márquez [facility] Apr 17, 2024 12:08 PM SECONDARY group home (current) use of oral hypoglycemic drugs STONE,DEJAN Márquez [facility] Apr 17, 2024 12:08 PM SECONDARY Low back pain, unspecified STONE,DEJAN Márquez [facility] Apr 17, 2024 12:08 PM SECONDARY Mixed hyperlipidemia STONE,DEJAN Márquez [facility] Apr 17, 2024 12:08 PM SECONDARY Morbid (severe) obesity due to excess calories STONE,DEJAN Márquez [facility] Apr 17, 2024 12:08 PM SECONDARY Obstructive sleep apnea (adult) (pediatric) STONE,DEJAN Márquez [facility] Apr 17, 2024 12:08 PM SECONDARY Other chronic pain STONE,DEJAN Márquez [facility] Apr 17, 2024 12:08 PM SECONDARY Paroxysmal atrial fibrillation STONE,DEJAN Márquez [facility] Apr 17, 2024 12:08 PM SECONDARY Type 2 diabetes mellitus w diabetic chronic kidney disease STONE,DEJAN Márquez [facility] Apr 17, 2024 12:08 PM SECONDARY Type 2 diabetes mellitus with diabetic neuropathy, unsp STONE,DEJAN Márquez [facility] Plan of Treatment: Future Appointments (+ 6 months) and Future Tests (+/- 45 days) The Plan of Treatment section includes future care activities for the patient from all [facility]. This section includes future appointments and future orders which are active, pending or scheduled. Future Appointments This section includes appointments that were scheduled to occur 6 months from the date of the Encounter, up to a maximum of 20 appointments. The data comes from all [facility]. Appointment Date/Time Appointment Type Appointme nt Facility Name Apr 15, 2024 12:23 PM [facility] Apr 15, 2024 05:00 PM AMBULATORY - NONE [facility] May 05, 2024 02:15 PM AMBULATORY - MEDICINE [facility] FREDY [facility] May 09, 2024 10:30 AM AMBULATORY - MEDICINE [facility] May 20, 2024 11:00 AM AMBULATORY - MEDICINE [facility] Jun 25, 2024 09:45 AM AM[facility]UL[facility]ORY - [facility]ICINE [facility] Jul 08, 2024 01:40 PM AMBULATORY - SURGERY LEXIN MILANON [facility] Sep 16, 2024 01:20 PM AMBULATORY - MEDICINE [facility] Active, Pending, and Scheduled Orders This section includes a listing of several types of active, pending, and scheduled orders, including clinic medications orders, diagnostic test orders, procedure orders and consult orders; where the start date of the order is 45 days before the date of the Encounter or 45 days after the date of theEncounter. The data comes from all [place] treatment facilities. Test Date/Time Test Type Test Details Facility Name Apr 15, 2024 02:03 PM Laboratory - Chemi stry Order CBC/PLT [id number] BLOOD STAT WC ONCE [facility] Lab Results: +/- 30 days of the encounter This section includes the Chemistry and Hematology Lab Results [facility] with [facility] for [facility]. Radiology Reports and Pathology Reports are provided separately, in subsequent sections. Lab Results This section contains the Chemistry/Hematology Results that were resulted 30 days before or 30 daysafter the date of the Encounter. Date/Time Source Result Type Result - Unit Interpretation Reference Range Specimen Type Comment May 05, 2024 02:08 PM [facility] N PANEL 1 PLASMA Specimen Type: PLASMA Comment: Estimated Glomerular Filtration Rate (eGFR) calculated using the 2020 Chronic Kidney Disease-Epidemio logy (CKD-EPI) Collaboration creatinine equation; units of measure [...] or structural abnormalities does not represent CKD. ====== eGFR CKD Interpretation (mL/min/1.73 m2) stage >=90 G1 Normal 60-89 G2 Mild decrease 45-59 G3A Mild to moderate decrease 30-44 G3B Moderate to severe decrease 15-29 G4 Severe decrease <15 G5 Kidney failure Ordering Provider: DEJAN GUTIERREZ Report Released Date/Time: Apr 21, 2024 11:25 AM Reporting Lab: [address] [address] Performing Lab: [address] [address] CREATININE 2.39 mg/dL H 0.72-1.25 UREA NITROGEN 30 mg/dL H 9-25 GLUCOSE 126 mg/dL H 74-100 SODIUM 140 mmol/L 136-145 POTASSIUM 5.0 mmol/L 3.5-5.1 CHLORIDE 110 mmol/L H 98-107 CO2 21 mmol/L L 22-29 CALCIUM 9.9 mg/dL 8.4-10.2 ANION GAP 9 meq/L 3-19 eGFR (CKD-EPI) 27 Apr 18, 2024 11:13 AM [facility] GLUCOSE-HAND MONITOR CAPILLARY Specime n Type: CAPILLARY Comment: Test performed by: [id number] Meter #: [id number] Ordering Provider: CHERYL HURT Report Released Date/Time: Apr 18, 2024 11:44 AM Reporting Lab: [address] [address] Performing Lab: [address] [address] GLUCOSE-HAND MONITOR 110 mg/dL H 71-99 Apr 18, 2024 07:58 AM [facility] PANEL 1 PLASMA Specimen Type: PLASM A Comment: Estimated [...] decrease <15 G5 Kidney failure Ordering Provider: GEOVANNI KIM Report Released Date/Time: Apr 17, 2024 03:26 PM Reporting Lab: [place] [id number] Performing Lab: [place] [id number] CREATININE 2.05 mg/dL H 0.72-1.25 UREA NITROGEN 28 mg/dL H 9-25 GLUCOSE 177 mg/dL H 74-100 SODIUM 137 mmol/L 136-145 POTASSIUM 4.3 mmol/L 3.5-5.1 CHLORIDE 109 mmol/L H 98-107 CO2 21 mmol/L L 22-29 CALCIUM 8.6 mg/dL 8.4-10.2 ANION GAP 7 meq/L 3-19 eGFR (CKD-EPI) 32 Apr 18, 2024 07:00 AM [facility] GLUCOSE-HAND MONITOR CAPILLARY Specime n Type: CAPILLARY Comment: CARLOS RN notified Test performed by: [id number] Meter #: [id number] Ordering Provider: CHERYL HURT Report Released Date/Time: Apr 18, 2024 07:22 AM Reporting Lab: [place] [id number] Performing Lab: [place] [id number] GLUCOSE-HAND MONITOR 127 mg/dL H Apr 17, 2024 08:26 PM [facility] GLUCOSE-HAND MONITOR CAPILLARY Specime n Type: CAPILLARY Comment: CARLOS RN notified Test performed by: [id number] Meter #: [id number] Ordering Provider: CHERYL HURT Report Released Date/Time: Apr 17, 2024 09:24 PM Reporting Lab: [place] [id number] Performing Lab: [place] [id number] GLUCOSE-HAND MONITOR 164 mg/dL H -Apr 17, 2024 04:45 PM [facility] GLUCOSE-HAND MONITOR CAPILLARY Specime n Type: CAPILLARY Comment: CARLOS RN notified Test performed by: [id number] Meter #: [id number] Ordering Provider: CHERYL HURT Report Released Date/Time: Apr 17, 2024 05:19 PM Reporting Lab: [address] [address] Performing Lab: [address] [address] GLUCOSE-HAND MONITOR 161 mg/dL H Apr 17, 2024 12:11 PM [facility] GLUCOSE-HAND MONITOR CAPILLARY Specime n Type: CAPILLARY Comment: Test performed by: [id number] Meter #: [id number] Ordering Provider: CHERYL HURT Report Released Date/Time: Apr 17, 2024 12:46 PM Reporting Lab: [address] [address] Performing Lab: [address] [address] GLUCOSE-HAND MONITOR 116 mg/dL H Apr 17, 2024 07:33 AM [facility] PANEL 1 PLASMA Specimen Type: PLASM A Comment: Estimated [...] decrease <15 G5 Kidney failure Ordering Provider: EDGARDO GARCIA Report Released Date/Time: Apr 16, 2024 03:40 PM Reporting Lab: [address] [address] Performing Lab: [place] [id number] CREATININE 2.39 mg/dL H 0.72-1.25 UREA NITROGEN 35 mg/dL H 9-25 GLUCOSE 117 mg/dL H 74-100 SODIUM 138 mmol/L 136-145 POTASSIUM 4.3 mmol/L 3.5-5.1 CHLORIDE 110 mmol/L H 98-107 CO2 22 mmol/L 22-29 CALCIUM 8.7 mg/dL 8.4-10.2 ANION GAP 6 meq/L 3-19 eGFR (CKD-EPI) Apr 17, 2024 07:33 AM [facility] CBC/PLT BLOOD Specimen Type: BLOOD No comment entered. Ordering Provider: EDGARDO GARCIA Report Released Date/Time: Apr 16, 2024 03:40 PM Reporting Lab: [address] [address] Performing Lab: [address] [address] WBC 8.8 10*3/uL 5.0-10.0 RBC 4.05 10*6/uL L 4.6-6.2 HGB 11.4 g/dL L 14.0-18.0 HCT 36.1 L 42.0-52.0 MCV 89.1 fL 80.0-94.0 MCH 28.1 pg 27.0-31.0 MCHC 31.6 g/dL L 32.0-36.0 PLT 165 10*3/uL 150-450 MPV 10.4 fL 9.0-13.1 RDW 13.4 11.0-16.0 NRBC 0.0 0.0-0.0 Apr 17, 2024 06:55 AM [facility] GLUCOSE-HAND MONITOR CAPILLARY Specime n Type: CAPILLARY Comment: CARLOS RN notified Test performed by: [id number] Meter #: [id number] Ordering Provider: CHERYL HURT Report Released Date/Time: Apr 17, 2024 07:16 AM Reporting Lab: [address] [address] Performing Lab: [place] [id number] GLUCOSE-HAND MONITOR 125 mg/dL H Apr 16, 2024 08:45 PM [facility] GLUCOSE-HAND MONITOR CAPILLARY Specime n Type: CAPILLARY Comment: CARLOS RN notified Test performed by: [id number] Meter #: [id number] Ordering Provider: CHERYL HURT Report Released Date/Time: Apr 16, 2024 10:14 PM Reporting Lab: [address] [address] Performing Lab: [address] [address] GLUCOSE-HAND MONITOR 138 mg/dL H Apr 16, 2024 04:48 PM [facility] GLUCOSE-HAND MONITOR CAPILLARY Specime n Type: CAPILLARY Comment: CARLOS RN notified Test performed by: [id number] Meter #: [id number] Ordering Provider: CHERYL HURT Report Released Date/Time: Apr 16, 2024 05:42 PM Reporting Lab: [address] [address] Performing Lab: [address] [address] GLUCOSE-HAND MONITOR 110 mg/dL H Apr 16, 2024 12:03 PM [facility] GLUCOSE-HAND MONITOR CAPILLARY Specime n Type: CAPILLARY Comment: CARLOS RN notified Test performed by: [id number] Meter #: [id number] Ordering Provider: CHERYL HURT Report Released Date/Time: Apr 16, 2024 01:01 PM Reporting Lab: [place] [id number] Performing Lab: [address] [address] GLUCOSE-HAND MONITOR 126 mg/dL H 71-99 Apr 16, 2024 08:10 AM [facility] CBC/PLT BLOOD Specimen Type: BLOOD No comment entered. Ordering Provider: EDGARDO GARCIA Report Released Date/Time: Apr 15, 2024 11:24 PM Reporting Lab: [address] [address] Performing Lab: [address] [address] WBC 9.5 10*3/uL 5.0-10.0 RBC 4.19 10*6/uL L 4.6-6.2 HGB 11.6 g/dL L 14.0-18.0 HCT 37.0 L 42.0-52.0 MCV 88.3 fL 80.0-94.0 MCH 27.7 pg 27.0-31.0 MCHC 31.4 g/dL L 32.0-36.0 PLT 163 10*3/uL 150-450 MPV 10.4 fL 9.0-13.1 RDW 13.5 11.0-16.0 NRBC 0.0 0.0-0.0 Apr 16, 2024 08:10 AM [facility] PANEL 1 PLASMA Specimen Type: PLASM A Comment: Estimated [...] decrease <15 G5 Kidney failure Ordering Provider: EDGARDO GARCIA Report Released Date/Time: Apr 15, 2024 11:24 PM Reporting Lab: [address] [address] Performing Lab: [address] [address] CREATININE 3.29 mg/dL H 0.72-1.25 UREA NITROGEN 40 mg/dL H 9-25 GLUCOSE 151 mg/dL H 74-100 SODIUM 136 mmol/L 136-145 POTASSIUM 3.7 mmol/L 3.5-5.1 CHLORIDE 109 mmol/L H 98-107 CO2 18 mmol/L L 22-29 CALCIUM 8.5 mg/dL 8.4-10.2 ANION GAP 9 meq/L 3-19 eGFR (CKD-EPI) Apr 16, 2024 06:43 AM [facility] GLUCOSE-HAND MONITOR CAPILLARY Specime n Type: CAPILLARY Comment: Test performed by: [id number] Meter #: [id number] Ordering Provider: CHERYL HURT Report Released Date/Time: Apr 16, 2024 07:14 AM Reporting Lab: [address] [address] Performing Lab: [address] [address] GLUCOSE-HAND MONITOR 111 mg/dL H 71-99 Apr 16, 2024 06:00 AM [facility] MRSA SURVL NARES DNA NARES Specime n Type: NARES Comment: Results from the Xpert MRSA NxG PCR test should be interpreted in conjunction with other laboratory and clinical data available to the clinician, and should be used as an adjunct to nosocomial infection control efforts to identify patients needing enhanced precautions. Results should not be used to guide or monitor treatment for MRSA infections. The Xpert MRSA NxG PCR test is not intended to diagnose, guide or monitor treatment for MRSA infections, or determine susceptibility to methicillin. An Xpert MRSA NxG PCR test positive result does not necessarily indicate intervention eradication failure since nonviable DNA may persist. A negative result following a previously positive test result may or may not indicate eradication success. Ordering Provider: EDGARDO GARCIA Report Released Date/Time: Apr 15, 2024 11:24 PM Reporting Lab: [address] [address] Performing Lab: [place] [id number] MRSA SURVL NARES DNA Negative Negative Apr 15, 2024 11:44 PM [facility] GLUCOSE-HAND MONITOR CAPILLARY Specime n Type: CAPILLARY Comment: Test performed by: [id number] Meter #: [id number] Ordering Provider: CHERYL HURT Report Released Date/Time: Apr 16, 2024 12:31 AM Reporting Lab: [address] [address] Performing Lab: [address] [address] GLUCOSE-HAND MONITOR 149 mg/dL H 71-99 Apr 15, 2024 07:21 PM [facility] OVA AND PARASITE EXAM, GIARDIA (LC) FECES Specimen Type: FECES Comment: No ova, cysts, or parasites seen. . One negative specimen does not rule out the possibility of a parasitic infection. Ordering Provider: CARRINGTON GRISSOM Report Released Date/Time: Apr 15, 2024 06:03 PM Reporting Lab: [address] [address] Performing Lab: [address] [address] .OVA & PARASITE EXAM (LC) Comment .GIARDIA EIA (LC) Negative Negative Apr 15, 2024 07:21 PM [facility] C DIFF TOXIN BY PCR/REFLEX TO EIA FECES Specimen Type: FECES Comment: This [employer] Xpert C DIFF PCR Assay targets the tcdB gene for Toxin B production. This test will not detect strains of C. difficile that do not contain the tcdB gene. Results from the Xpert C. difficile PCR Assay should be interpreted in conjunction with the C DIFF EIA toxin and clinical data available to the clinician. Ordering Provider: CARRINGTON GRISSOM Report Released Date/Time: Apr 15, 2024 06:03 PM Reporting Lab: [place] [id number] Performing Lab: [place] [id number] C DIFF TOX B GENE PCR Negative Negative Apr 15, 2024 07:21 PM [facility] WBC FECES (LACTOFERRIN) FECES Spec imen Type: FECES No comment entered. Ordering Provider: CARRINGTON GRISSOM Report Released Date/Time: Apr 15, 2024 06:03 PM Reporting Lab: [address] [address] Performing Lab: [place] [id number] WBC FECES (LACTOFERRIN) POSITIVE Negativ e Apr 15, 2024 05:53 PM [facility] URINE LYTES URINE Specimen Type : URINE No comment entered. Ordering Provider: CARRINGTON GRISSOM Report Released Date/Time: Apr 15, 2024 04:12 PM Reporting Lab: [address] [address] Performing Lab: [address] [address] SODIUM 42 mmol/L POTASSIUM 20.7 mmol/L CHLORIDE 28 mmol/L Apr 15, 2024 05:53 PM [facility] URINALYSIS URINE Specimen Type : URINE No comment entered. Ordering Provider: CARRINGTON GRISSOM Report Released Date/Time: Apr 15, 2024 02:03 PM Reporting Lab: [address] [address] Performing Lab: [address] [address] URINE COLOR Yellow Colorless-Yellow APPEARANCE CLOUDY H Clear UROBILINOGEN Normal mg/dL Normal URINE BLOOD Negative Negative URINE BILIRUBIN Negative Negative URINE KETONES Negative mg/dL Negative URINE PROTEIN 30 mg/dL H Negative-Trace URINE PH 5.0 4.5-8.0 URINE NITRITE Negative Negative URINE LEUKOCYTE EST Negative Negative SPECIFIC GRAVITY 1.013 1.005-1.030 URINE GLUCOSE Negative mg/dL Negative URINE RBC (i) 1 /[HPF] 0-3 URINE WBC (i) 1 /[HPF] 0-3 URINE BACTERIA (i) TRACE /[HPF] H None URINE MUCOUS (i) TRACE /[LPF] H None SQUAMOUS EPITHELIAL (i) 15 /[LPF] 0-28 HYALINE CASTS (i) 25 /[LPF] H 0-2 GRANULAR CAST (i) 3 /[LPF] H None AMORPHUS CRYSTAL (i) Trace /[HPF] H None Apr 15, 2024 05:26 PM [facility] MRSA SURVL NARES DNA NARES Specime n Type: NARES Comment: Results from the Xpert MRSA NxG PCR test should be interpreted in conjunction with other laboratory and clinical data available to the clinician, and should be used as an adjunct to nosocomial infection control efforts to identify patients needing enhanced precautions. Results should not be used to guide or monitor treatment for MRSA infections. The Xpert MRSA NxG PCR test is not intended to diagnose, guide or monitor treatment for MRSA infections, or determine susceptibility to methicillin. An Xpert MRSA NxG PCR test positive result does not necessarily indicate intervention eradication failure since nonviable DNA may persist. A negative result following a previously positive test result may or may not indicate eradication success. Ordering Provider: CARRINGTON GRISSOM Report Released Date/Time: Apr 15, 2024 04:28 PM Reporting Lab: [address] [address] Performing Lab: [address] [address] MRSA SURVL NARES DNA Negative Negative Apr 15, 2024 02:41 PM [facility] LACTIC ACID PLASMA Specimen Type : PLASMA No comment entered. Ordering Provider: CARRINGTON GRISSOM Report Released Date/Time: Apr 15, 2024 02:03 PM Reporting Lab: [facility] [address] [address] Performing Lab: [facility] [address] [address] LACTIC ACID 1.4 mmol/L 0.5-2.2 Apr 15, 2024 02:41 PM [facility] LIPASE PLASMA Specimen Type: PLASM A Comment: Estimated [...] decrease <15 G5 Kidney failure Ordering Provider: CARRINGTON GRISSOM Report Released Date/Time: Apr 15, 2024 02:03 PM Reporting Lab: [facility] [address] [address] Performing Lab: [address] [address] LIPASE 11 U/L 8-78 Apr 15, 2024 02:41 PM [facility] PANEL 2 PLASMA Specimen Type: PLASM A Comment: Estimated [...] decrease <15 G5 Kidney failure Ordering Provider: CARRINGTON GRISSOM Report Released Date/Time: Apr 15, 2024 02:03 PM Reporting Lab: [facility] [address] [address] Performing Lab: [address] [address] TOTAL PROTEIN 7.2 g/dL 6.4-8.3 ALBUMIN 3.8 g/dL 3.5-5.2 TOTAL BILIRUBIN 0.6 mg/dL 0.2-1.2 AST 21 U/L 5-34 ALT 18 U/L 0-55 ALK PHOS 60 U/L 40-150 BILIRUBIN-DIRECT 0.2 mg/dL 0.0-0.5 Apr 15, 2024 02:41 PM [facility] PANEL 1 PLASMA Specimen Type: PLASM A Comment: Estimated [...] decrease <15 G5 Kidney failure Ordering Provider: CARRINGTON GRISSOM Report Released Date/Time: Apr 15, 2024 02:03 PM Reporting Lab: [address] [address] Performing Lab: [address] [address] CREATININE 4.52 mg/dL H 0.72-1.25 UREA NITROGEN 41 mg/dL H 9-25 GLUCOSE 110 mg/dL H 74-100 SODIUM 135 mmol/L L 136-145 POTASSIUM 3.9 mmol/L 3.5-5.1 CHLORIDE 104 mmol/L 98-107 CO2 20 mmol/L L 22-29 CALCIUM 8.8 mg/dL 8.4-10.2 ANION GAP 11 meq/L 3-19 eGFR (CKD-EPI) 12 Apr 15, 2024 02:41 PM [facility] CBC/PLT BLOOD Specimen Type: BLOOD Comment: ~STAT Ordering Provider: CARRINGTON GRISSOM Report Released Date/Time: Apr 15, 2024 02:03 PM Reporting Lab: [address] [address] Performing Lab: [address] [address] WBC 11.3 10*3/uL H 5.0-10.0 RBC 4.04 10*6/uL L 4.6-6.2 HGB 11.5 g/dL L 14.0-18.0 HCT 36.3 L 42.0-52.0 MCV 89.9 fL 80.0-94.0 MCH 28.5 pg 27.0-31.0 MCHC 31.7 g/dL L 32.0-36.0 PLT 166 10*3/uL 150-450 MPV 10.6 fL 9.0-13.1 RDW 13.6 11.0-16.0 NRBC 0.0 0.0-0.0 Apr 15, 2024 02:41 PM [facility] COVID-19 AND FLU/RSV DIAGNOSTIC PANEL NASOPH ARYNX Specimen Type: NASOPHARYNX Comment: Positive results are indicative of active infection with SARS-CoV-2; clinical correlation with patient history/diagnostic information is necessary. Positive results do not rule out bacterial infection or co-infection with other viruses. Negative results do not preclude SARS-CoV-2 infection and should not be used as the sole basis for treatment or other patient management decisions. Negative results must be combined with clinical observations, patient history, and epidemiological information. Presumptive positive results indicate that SARS-CoV-2 nucleic acids may be present. Repeat or confirmatory testing may be conducted if it is necessary to differentiate between SARS-CoV-2 and SARS-CoV-1 or other Sarbecovirus currently unknown to infect humans. The Xpert Xpress SARS-CoV-2 test is a rapid, real-time RT-PCR test intended for the qualitative detection of nucleic acid from the SARS-CoV-2 in nasopharyngeal swab specimens collected from individuals suspected of COVID-19 in the acute phase of infection and is only for in vitro use under the Food and Drug Administration's Emergency Use Authorization. [employer]NFOC[employer] Genexpert (596) Ordering Provider: CARRINGTON GRISSOM Report Released Date/Time: Apr 15, 2024 02:03 PM Reporting Lab: [place] [id number] Performing Lab: [place] [id number] COVID-19 PCR (FLUVID) Negative Negative FLU A PCR (FLUVID) Negative Negative FLU B PCR (FLUVID) Negative Negative RSV PCR (FLUVID) Negative Negative Apr 15, 2024 02:41 PM [facility] PLASMA Specimen Type: PLASM A Comment: Estimated [...] decrease <15 G5 Kidney failure Ordering Provider: CARRINGTON GRISSOM Report Released Date/Time: Apr 15, 2024 02:03 PM Reporting Lab: [address] [address] Performing Lab: [address] [address] [facility] 0.91 ng/mL H 0.00-0.50 Apr 15, 2024 02:41 PM [facility] AUTOMATED DIFF BLOOD Specimen Type : BLOOD Comment: ~STAT Ordering Provider: CARRINGTON GRISSOM Report Released Date/Time: Apr 15, 2024 02:03 PM Reporting Lab: [address] [address] Performing Lab: [address] [address] A-LYMPH % 21.9 L 24.0-44.0 A-MONO % 14.9 H 0.1-6.0 A-GRAN % 58.9 42.0-75.0 A-LYMPH # 2.47 10*3/uL 1.20-3.40 A-MONO # 1.68 10*3/uL H 0.00-0.60 A-GRAN # 6.63 10*3/uL H 1.40-6.50 A-BASO % 0.3 0.0-3.0 A-BASO # 0.03 10*3/uL 0.00-0.20 A-EOS % 3.7 0.0-10.0 A-EOS # 0.42 10*3/uL 0.00-0.70 A-IG % 0.3 0.0-0.5 A-IG # 0.03 10*3/uL 0.00-0.06 Apr 09, 2024 09:58 AM [facility] DRUG SCREEN IN-HOUSE ROUTINE URINE Specimen Type: URINE Comment: Screening method results are unconfirmed and are for medical use only. Unconfirmed screening results must not be used for non-medical purposes. Opiates test most sensitive for morphine, codeine and heroin and less sensitive for hydrocodone and hydromorphone where higher concentrations are needed for cut-off detection. Ordering Provider: DEJAN GUTIERREZ Report Released Date/Time: Apr 08, 2024 10:18 AM Reporting Lab: [address] [address] Performing Lab: [address] [address] TETRAHYDROCANNABINOL SCREEN NEG AMPHETAMINE SCR NEG BARBITURATES SCR NEG BENZODIAZEPINES SCR NEG COCAINE METABOLITE SCR NEG OPIATES SCR NEG METHADONE SCR NEG OXYCODONE SCR NEG Apr 09, 2024 09:58 AM [facility] MICROALBUMIN/CREAT RATIO URINE Specimen Type: URINE No comment entered. Ordering Provider: DEJAN GUTIERREZ Report Released Date/Time: Apr 08, 2024 10:18 AM Reporting Lab: [address] [address] Performing Lab: [address] [address] CREATININE 116.7 mg/dL MICROALBUMIN QUANT 80.2 mg/L H 0.0-30.0 .MICROALBUMIN/CREA RATIO 68.7 ug/mg{creat} Apr 09, 2024 09:50 AM [facility] CBC/PLT BLOOD Specimen Type: BLOOD No comment entered. Ordering Provider: CAMILO MAYERS Report Released Date/Time: Apr 03, 2024 03:39 PM Reporting Lab: [address] [address] Performing Lab: [place] [id number] WBC 13.1 10*3/uL H 5.0-10.0 RBC 4.41 10*6/uL L 4.6-6.2 HGB 12.5 g/dL L 14.0-18.0 HCT 40.2 L 42.0-52.0 MCV 91.2 fL 80.0-94.0 MCH 28.3 pg 27.0-31.0 MCHC 31.1 g/dL L 32.0-36.0 PLT 191 10*3/uL 150-450 MPV 10.8 fL 9.0-13.1 RDW 13.2 11.0-16.0 NRBC 0.0 0.0-0.0 Apr 09, 2024 09:50 AM [facility] AUTOMATED DIFF BLOOD Specimen Type: BLOOD No comment entered. Ordering Provider: CAMILO MAYERS Report Released Date/Time: Apr 03, 2024 03:39 PM Reporting Lab: [address] [address] Performing Lab: [place] [id number] A-LYMPH % 27.0 24.0-44.0 A-MONO % 9.7 H 0.1-6.0 A-GRAN % 56.3 42.0-75.0 A-LYMPH # 3.55 10*3/uL H 1.20-3.40 A-MONO # 1.27 10*3/uL H 0.00-0.60 A-GRAN # 7.40 10*3/uL H 1.40-6.50 A-BASO % 0.4 0.0-3.0 A-BASO # 0.05 10*3/uL 0.00-0.20 A-EOS % 6.1 0.0-10.0 A-EOS # 0.80 10*3/uL H 0.00-0.70 A-IG % 0.5 0.0-0.5 A-IG # 0.06 10*3/uL 0.00-0.06 Apr 09, 2024 09:50 AM [facility] GLYCOHEMOGLOBIN BLOOD Specimen Type: BLOOD Comment: [facility] guidelines for A1c interpretation: Glycemic control targets are based on Shared Decision Making between clinicians and patients. Criteria used to establish an A1c target recommendation can be found at https://www.[place].gov/qualityandpatientsafety/ and include the use of result accuracy and precision(CV) of the A1c tests clinicians utilize at their own sites of practice. Values obtained from A1C measurements can vary. For typical A1C assays, a reported value of 7.0 could actually be between 6.72 and 7.28 if measured by a reference method. A reported value of 9.0 could actually be between 8.73 and 9.27. Ref: https://ngsp.org/CAPdata.asp. The in-house [facility] D-100 analyzer has a historical CV <= 2%. Contact the laboratory for further performance characteristics of this assay. Ordering Provider: DEJAN GUTIERREZ Report Released Date/Time: Apr 08, 2024 10:18 AM Reporting Lab: [address] [address] Performing Lab: [address] [address] GLYCOHEMOGLOBIN 6.4 4.4-6.4 Apr 09, 2024 09:50 AM [facility] FERRITIN PLASMA Specimen Type: PLASM A Comment: Vitamin B12 test may not yield results when protein level of sample is too elevated. Estimated Glomerular Filtration Rate (eGFR) calculated using [...] decrease <15 G5 Kidney failure Ordering Provider: DEJAN GUTIERREZ Report Released Date/Time: Apr 08, 2024 10:18 AM Reporting Lab: [address] [address] Performing Lab: [address] [address] FERRITIN 40.1 ng/mL 21.8-274.7 Apr 09, 2024 09:50 AM [facility] LIPID PROFILE PLASMA Specimen Type: PLASM A Comment: Vitamin B12 test may not yield results when protein level of sample is too elevated. Estimated Glomerular Filtration Rate (eGFR) calculated using [...] decrease <15 G5 Kidney failure Ordering Provider: DEJAN GUTIERREZ Report Released Date/Time: Apr 08, 2024 10:18 AM Reporting Lab: [address] [address] Performing Lab: [address] [address] CHOLESTEROL 155 mg/dL 0-199 TRIGLYCERIDE 252 mg/dL H 0-149 HDL CHOLESTEROL 32 mg/dL L 40-69 DIRECT LDL CHOL. 81 mg/dL 0-100 Apr 09, 2024 09:50 AM [facility] 25-OH VITAMIN D SERUM Specime n Type: SERUM Comment: The National Institutes of Health (NIH) recommendations state: <12 ng/mL - Deficient 20 - 50 ng/mL - Optimal Levels - adequate for most people. >50 ng/mL - Increased risk of hypercalciuria/other health problems - clinical correlation is required. These reference ranges represent clinical decision values rather than population-based reference values. Ordering Provider: DEJAN GUTIERREZ Report Released Date/Time: Apr 08, 2024 10:18 AM Reporting Lab: [facility] [address] [address] Performing Lab: [address] [address] 25-OH VITAMIN D 41.8 ng/mL 20.0-50.0 Apr 09, 2024 09:50 AM [facility] B12 VITAMIN PLASMA Specimen Type: PLASM A Comment: Vitamin B12 test may not yield results when protein level of sample is too elevated. Estimated Glomerular Filtration Rate (eGFR) calculated using [...] decrease <15 G5 Kidney failure Ordering Provider: DEJAN GUTIERREZ Report Released Date/Time: Apr 08, 2024 10:18 AM Reporting Lab: [address] [address] Performing Lab: [address] [address] B12 VITAMIN 513 pg/mL 213-816 Apr 09, 2024 09:50 AM [facility] TSH PLASMA Specimen Type: PLASM A Comment: Vitamin B12 test may not yield results when protein level of sample is too elevated. Estimated Glomerular Filtration Rate (eGFR) calculated using [...] decrease <15 G5 Kidney failure Ordering Provider: DJEAN GUTIERREZ Report Released Date/Time: Apr 08, 2024 10:18 AM Reporting Lab: [address] [address] Performing Lab: [address] [address] TSH 7.3449 m[IU]/mL H 0.3500-4.9400 Apr 09, 2024 09:50 AM [facility] MAGNESIUM PLASMA Specimen Type: PLASM A Comment: Vitamin B12 test may not yield results when protein level of sample is too elevated. Estimated Glomerular Filtration Rate (eGFR) calculated using [...] decrease <15 G5 Kidney failure Ordering Provider: DEJAN GUTIERREZ Report Released Date/Time: Apr 08, 2024 10:18 AM Reporting Lab: [address] [address] Performing Lab: [address] [address] MAGNESIUM 2.0 mg/dL 1.6-2.6 Apr 09, 2024 09:50 AM [facility] PANEL 5 PLASMA Specimen Type: PLASM A Comment: Vitamin B12 test may not yield results when protein level of sample is too elevated. Estimated Glomerular Filtration Rate (eGFR) calculated using [...] decrease <15 G5 Kidney failure Ordering Provider: DEJAN GUTIERREZ Report Released Date/Time: Apr 08, 2024 10:18 AM Reporting Lab: [address] [address] Performing Lab: [address] [address] CREATININE 2.36 mg/dL H 0.72-1.25 UREA NITROGEN 32 mg/dL H 9-25 GLUCOSE 126 mg/dL H 74-100 SODIUM 137 mmol/L 136-145 POTASSIUM 4.8 mmol/L 3.5-5.1 CHLORIDE 106 mmol/L 98-107 CO2 22 mmol/L 22-29 CALCIUM 9.8 mg/dL 8.4-10.2 TOTAL PROTEIN 7.5 g/dL 6.4-8.3 ALBUMIN 4.0 g/dL 3.5-5.2 TOTAL BILIRUBIN 0.4 mg/dL 0.2-1.2 AST 42 U/L H 5-34 ALT 43 U/L 0-55 ANION GAP 9 meq/L 3-19 ALK PHOS 66 U/L 40-150 eGFR (CKD-EPI) 27 Vital Signs: All taken on the encounter date This section contains inpatient and outpatient Vital Signs collected on the date of the Encounter. Date/Time Temperature Pulse Blood Pressure Respiratory Rate SP02 Pain Height Weight Body Mass Index Source Apr 09, 2024 10:51 AM 98.1 66 127/75 94 5 73 317.4 42 [place] [facility] Immunizations: All administered on the encounter date This section contains immunizations associated to the Encounter. Immunization Series Date Issued Administered By Site Reaction Lot Number CVX Code Drug State Wildlife Officer Comment(s) Source INFLUENZA, HIGH-DOSE, TRIVALENT, PF Apr 09, 2024 YURY ZELAYA LEFT DELTO ID [id number] A 135 SANOFI PASTEUR Completed Series, ADMINISTERE D AT [facility] ON [facility] Social History: Smoking Status (Most current) and Tobacco Use (All prior to encounter date) This section includes the most current, and the historical, smoking and tobacco- related health factors from the [place] facility where the Encounter took place. Current Smoking Status This section includes the most current smoking, or tobacco-related health factor, from the [place] facility where the Encounter took place. Date/Time Current Smoking Status Comment Corbin ity Apr 09, 2024 10:30 AM VA-TOBACCO FORMER USER [facility] Tobacco Use History This section includes a history of the smoking, or tobacco-related health factors, that were collected on or before the date of the Encounter. The data comes from the [place] facility where the Encounter took place. Date/Time Smoking Status/Tobacco Use Comment F acility Apr 09, 2024 10:30 AM VA-TOBACCO QUIT 15 YRS OR MORE [facility] May 08, 2023 02:30 PM VA-TOBACCO FORMER USER [facility] May 08, 2023 02:30 PM VA-TOBACCO QUIT 5 TO < 15 YRS [facility] May 26, 2022 11:00 AM VA-TOBACCO FORMER USER [facility] May 26, 2022 11:00 AM VA-TOBACCO QUIT 5 TO < 15 YRS [facility] Jun 22, 2021 10:00 AM VA-TOBACCO FORMER USER [facility] Jun 22, 2021 10:00 AM VA-TOBACCO QUIT 5 TO < 15 YRS [facility] Jul 05, 2020 11:00 AM VA-TOBACCO FORMER USER [facility] Jul 05, 2020 11:00 AM VA-TOBACCO QUIT 5 TO < 15 YRS [facility] Apr 25, 2019 02:40 PM VA-TOBACCO FORMER USER [facility] Apr 25, 2019 02:40 PM VA-TOBACCO QUIT 5 TO < 15 YRS [facility] Jun 27, 2018 09:46 AM VA-TOBACCO FORMER USER [facility] Jun 27, 2018 09:46 AM VA-TOBACCO QUIT 5 TO < 15 YRS [facility] Jul 27, 2017 09:25 AM V9 LIFETIME NON-USER OF TOBACCO [facility] Aug 22, 2016 08:58 AM V9 LIFETIME NON-USER OF TOBACCO [facility] Sep 14, 2015 09:30 AM V9 LIFETIME NON-USER OF TOBACCO [facility] Sep 03, 2014 07:39 AM V9 LIFETIME NON-USER OF TOBACCO [facility] Apr 22, 2013 09:17 AM V9 QUIT TOBACCO IN THE LAST 12 MONTHS [facility] Jun 14, 2012 02:12 PM V9 QUIT TOBACCO >1 2 MO & <7 YRS AGO [facility] Feb 07, 2011 03:23 PM V9 QUIT TOBACCO >7 YEARS AGO [facility] Jan 20, 2010 02:15 PM V9 QUIT TOBACCO >7 YEARS AGO [facility] Radiology Reports: +/- 30 days of the encounter Radiology Reports For cases when an order for radiology services may have been completed prior to the date of the Encounter, the report list includes the Radiology Reports that were completed up to 30 days before dateof the Encounter. For cases when an order for radiology services may have been completed after the date of the Encounter, the report list also includes the Radiology Reports that were completed up to30 days after date of the Encounter. The data comes from all [facility] facilities. Date/Time Radiology Report Provider Source Apr 15, 2024 05:07 PM CHEST TWO(2) VIEW PA&LAT: CHELSEY SHELBY [id number] -[id number] M Exm Date: APR 15, 2024@17:07 Req Phys: CARRINGTON GRISSOM Loc: ED/7A-4PM (Req'g Loc) Img Loc: CDD RADIOLOGY Service: [place] [address] (Case [id number] COMPLETE) CHEST TWO(2) VIEW PA&LAT (RAD Detailed) CPT:05285 Reason for Study: possible admission, diarrhea for 5 days , willis. Clinical History: Report Status: Verified Date Reported: APR 15, 2024 Date Verified: APR 15, 2024 Water Superintendent E-Sig: Report: PA and lateral chest CLINICAL INFORMATION: Diarrhea for five days TECHNIQUE: Upright PA and lateral views FINDINGS: Comparison to prior exam 04/13/2023 shows slight parenchymal scarring in the periphery of the right upper lobe. No focal parenchymal consolidation or mass is evident in either lung. The cardiac silhouette is at the upper limits of normal in size. The pulmonary vascularity appears unremarkable. There is no evidence of pleural effusion, pneumothorax, or acute disruption of the visualized bony thorax. Degenerative changes are present in the thoracic spine. Impression: Borderline cardiomegaly. No radiographic evidence of acute cardiopulmonary disease. Primary Diagnostic Code: NO ALERT REQUIRED Primary Interpreting Staff: JAMARI GALEANA, RADIOLOGIST Verified by party plan salesperson for JAMARI GALEANA /EAGLE GALEANA,[facility]ARI [facility] Apr 15, 2024 05:[address] ABD/PELVIS W/O CONT (RENAL STONE PROTOCOL): HERONCHELSEY RICHARDS [id number] -1945 M Exm Date: APR 15, 2024@17:00 Req Phys: CARRINGTON GRISSOM Loc: ED/7A-4PM (Req'g Loc) Img Loc: CT SCAN Service: [place] [address] (Case [id number] COMPLETE) CT ABD/PELVIS W/O CONTRAST (CT Detailed) CPT:20691 Reason for Study: SEE CLINICAL HISTORY Clinical History: 22. Suspected diverticulitis HISTORY/REASON FOR EXAM: patient with WILLIS and diarrhea for 5 days white count about 11. No specifica abdominal pain. Report Status: Verified Date Reported: APR 15, 2024 Date Verified: APR 15, 2024 Water Superintendent E-Sig: Report: HISTORY SEE CLINICAL [id number]. Suspected diverticulitisHISTORY/REASON FOR EXAM:patient with WILLIS and diarrhea for 5 days white count about 11. No specificaabdominal pain. COMPARISON 08/19/[address] ABD/PELVIS W/O CONTRAST CT dose: CTDI vol: 16.04 mGy; DLP: 948.47 mGy*cm FINDINGS Visualized lower thorax demonstrates probable dependent atelectasis. Aneurysmal dilation of the infrarenal abdominal aorta up to 3 cm in diameter incompletely evaluated on this noncontrast exam. Vascular calcification. Degenerative changes of the visualized portions of the spine with at least moderate to severe lumbar spinal canal stenosis incompletely evaluated on this exam. Possible hepatic steatosis. Postsurgical changes of cholecystectomy. Adrenal glands, spleen, pancreas appear grossly unremarkable. No hydronephrosis or nephrolithiasis. Renal vascular calcification. Bladder appears grossly unremarkable. Partially visualized bilateral hip arthroplasty which degrades image quality in the pelvis due to streak artifact. Mild bowel wall thickening most pronounced along the transverse and descending colon. No evidence of high-grade bowel obstruction at this time. Appendix appears grossly unremarkable. No definite evidence of free intraperitoneal gas at this time. Electronically signed by: Andrew Garcia MD (April 15 2024 06:24 PM EST) Impression: Mild bowel wall thickening compatible with nonspecific colitis. No evidence of high-grade bowel obstruction at this time. Possible hepatic steatosis. Aneurysmal dilation of the infrarenal abdominal aorta up to 3 cm in diameter. Primary Diagnostic Code: SIGNIFICANT ABNORMALITY, ATTN NEEDED Primary Interpreting Staff: ANDREW GARCIA, Staff Physician Verified by party plan salesperson for ANDREW GARCIA /ANDREW [facility] Encounter Notes: All associated encounter notes This section contains the clinical notes associated to the Encounter. Date/Time Encounter Note(s) Provider Source May 20, 2024 02:54 PM PRIMARY CARE NOTE: LOCAL TITLE: Pc Chart Review Note STANDARD TITLE: PRIMARY CARE NOTE DATE OF NOTE: MAY 20, 2024@14:54 ENTRY DATE: MAY 20, 2024@14:54:50 AUTHOR: BREN HOWE COSIGNER: URGENCY: STATUS: COMPLETED Please inform the that his PFT results are normal. Thank you /arleth/ BREN HOWE THRESHING MACHINE OPERATOR Signed: 05/20/2024 14:56 Receipt Acknowledged By: 05/21/2024 18:36 /arleth/ Sole Weston RN chief of staff [facility] Apr 16, 2024 03:26 PM ADDENDUM: LOCAL TITLE: Addendum STANDARD TITLE: ADDENDUM DATE OF NOTE: APR 16, 2024@15:26:17 ENTRY DATE: APR 16, 2024@15:26:18 AUTHOR: DEJAN GUTIERREZ EXP COSIGNER: URGENCY: STATUS: COMPLETED checked with cardiology high risk case manager, recommended going ahead with stress test being ordered before f/u next month in their clinic /arleth/ Dejan Gutierrez MD Primary Care Attending Signed: 04/16/2024 15:31 Receipt Acknowledged By: 04/21/2024 16:35 /es/ Sole Weston RN chief of staff --- Original Document --- 04/09/24 PC PROGRESS NOTE: ID: CHELSEY SHELBY is a 78 year old WHITE MALE Patient's agenda/concerns: routine f/u of May 08, 2023 appt for chronic medical problems. CC: SUBJECTIVE: Pt here for routine f/u with family. Pt states has been more tired recently and ongoing dyspnea with any exertion. States the littlest thing will set him off. Due for cardiology f/u next month. States has been having intermittent posterior head pains and worsened by moving his neck side to side, comes and goes for months. Willing for PT eval. States still on same meds. States willing for stress test and pfts. States gaining wt and can't get active like he'd like. Outside providers? Dentist? 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 ([facility] [id number]) M65.322 Acquired trigger finger of left index finger ([facility] [id number]) E11.40 Diabetic neuropathy ([facility] [id number]) K22.70 Jay's Esophagus ([facility] [id number]) K63.5 Adenomatous polyp of colon ([facility] [id number]) M70.60 Bilateral hip joint pain ([facility] [id number]) L21.9 Seborrheic dermatitis ([facility] [id number]) 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 ([facility] [id number]) M54.50 Chronic low back pain ([facility] 645640274) F41.1 Anxiety disorder ([facility] 82480040) F33.40 Depressive disorder ([facility] 11586680) M47.16 Lumbar spondylosis with myelopathy ([facility] 00009496) V12.51 Personal History of Venous Thrombosis and Embolism (ICD-9-CM V12.51) G47.33 Obstructive sleep apnea syndrome ([facility] 70205934) E66.09 Obesity ([facility] 650958306) E78.2 Mixed hyperlipidemia ([facility] [id number]) I12.9 Benign hypertensive renal disease ([facility] [id number]) Tob/ETOH/Drug use: Tob-quit 09/14/2007 smoked from age 15. Smoked ~ 1ppd. ETOH- occasional Recreational drugs- denies Immunizations: vaccines okay MEDS Active Outpatient Medications (including Supplies): APIXABAN 5MG TAB TAKE ONE-HALF TABLET BY MOUTH TWICE A DAY ACTIVE TO THIN BLOOD -CALL ANTICOAGULATION CLINIC [phone] WITH QUESTIONS OR CONCERNS ATORVASTATIN CALCIUM 40MG TAB TAKE ONE-HALF TABLET BY ACTIVE MOUTH DAILY FOR CHOLESTEROL CHLORTHALIDONE 25MG TAB TAKE ONE TABLET BY MOUTH DAILY FOR ACTIVE BLOOD PRESSURE FLUOXETINE HCL 20MG CAP TAKE ONE CAPSULE BY MOUTH DAILY ACTIVE FOR MOOD GABAPENTIN 300MG CAP TAKE TWO CAPSULES BY MOUTH TWICE A ACTIVE DAY FOR NERVE PAIN [id number] PENTOXIFYLLINE SA 400MG/PBO TAKE ONE TABLET BY ACTIVE MOUTH TWICE A DAY WITH FOOD. SWALLOW WHOLE-DO NOT CHEW, CRUSH OR CUT LISINOPRIL 40MG TAB TAKE ONE TABLET BY MOUTH DAILY FOR ACTIVE BLOOD PRESSURE/HEART METFORMIN HCL 500MG TAB TAKE ONE TABLET BY MOUTH TWICE A ACTIVE DAY FOR DIABETES METOPROLOL TARTRATE 50MG TAB TAKE ONE-HALF TABLET BY MOUTH ACTIVE TWICE A DAY FOR RAPID HEARTBEAT PANTOPRAZOLE NA 40MG EC TAB TAKE ONE TABLET BY MOUTH TWICE ACTIVE A DAY 30 MINUTES BEFORE A MEAL FOR STOMACH, 30 MINUTES BEFORE A MEAL. TAKE ON AN EMPTY STOMACH. SPIRONOLACTONE 25MG TAB TAKE ONE TABLET BY MOUTH DAILY FOR ACTIVE BLOOD PRESSURE/HEART ALLERGIES: Patient has answered NKA ROS: General: no fever/chills, +obese CVS: no chest pain, +HTN Resp: no change in breathing, chronic AMARAL GI: no n/v/d/hemachezia : no hematuria, dysuria MSK: chronic joint pain OBJECTIVE: Vital Signs PULSE: 66 (04/09/2024 10:51) TPR: 98.1 F [36.7 C] (04/09/2024 10:51) BP: 127/75 (04/09/2024 10:51) RESP: 18 (05/10/2023 15:04) Pain: 5 (04/09/2024 10:51) Weight: 317.4 lb [143.97 kg] (04/09/2024 10:51) General: Awake, alert in nad, walks with cane Skin:warm and dry Heart: RRR, no noted murmur Lungs: CTAB, no crackles or wheezes, good effort, no retractions Abd:+BS, NT/ND, soft Ext: no pitting edema in ble Neuro:speech and gait intact. Pysch: Mood-pleasant; Insight-intact; Judgement-good; affect-normal Labs: had labs prior to appt. Imaging: none Review of records: I have reviewed previous pc note. Assessment/Plan: 1. Hypertensive chronic kidney disease with stage 1 through stage 4 chronic kidney disease, or unspecified chronic kidney disease WITH Chronic kidney disease, stage 3 unspecified-stable -discussed BP goal < 130/80 all the time. -off amlodipine with peripheral edema -cont chlorthalidone 25mg daily -cont spironolactone 25mg daily -cont lisinopril 40mg daily -on metoprolol 25mg BID -check p1 2. Mixed hyperlipidemia -cont lipitor 20mg daily -check lipids, p2 3. Obstructive sleep apnea WITH Dependence on other enabling machines and devices stable -compliant with cpap last check 4. Morbid Obesity due to excess calories- -BMI 40.4 -saw [facility] previously, declines referral back or to artillery specialist. 5. Other chronic pain and Low back pain, unspecified -fair control -sees pain clinic here for injections, seeing PT and PM&R for back. -cont gabapentin, will update UDS today. 6. Type 2 Diabetes Mellitus with Diabetic Neuropathy, unspecified AND Type 2 diabetes mellitus with diabetic chronic kidney disease WITH group home (current) use of oral hypoglycemic drugs -followed by podiatry -on metformin 500mg BID -on lisinopril -check a1c, p1, microalbumin/cr 7. 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 Paroxysmal atrial fibrillation WITH group home (current) use of anticoagulants -on apixiban 9. Dyspnea, unspecified -refer for updated PFTs, consider nuclear stress, due for cardiology f/u next month. Health Maintanance/Preventative medicine exam The /caregiver voiced understanding of topics covered/discussed in today's visit. The Outpatient Essential Medication List for review (EMLR) was reviewed with the patient/caregiver and the patient was provided or refused an updated reconciled medication list Discrepancies were corrected or sent to the ordering provider to correct ( ) [place]/caregiver not given a copy of EMLR ( ) /caregiver refused a copy of EMLR and stated they will maintain their own list ( x ) [place]/caregiver was handed a copy of EMLR at todays visit ( ) /caregiver requests copy of EMLR to be mailed to them at their address (verify address on file) ( ) [place]/caregiver requests copy of EMLR to be sent to them via Secure Messaging (must have My [employer] account) RTC: 11 months or prn Labs to be ordered at next visit: nonfasting a1c, microalbumin/cr, tsh, panel 5 and lipids. CARLOS-DM HbA1c not done: Glycohemoglobin (HgbA1c) ordered /es/ Dejan Gutierrez MD Primary Care Attending Signed: 04/09/2024 11:34 DEJAN GUTIERREZ [facility] Apr 09, 2024 11:34 AM MEDICATION MGT NOT E: LOCAL TITLE: OUTPATIENT ESSENTIAL MEDICATION LIST FOR REVIEW (EM STANDARD TITLE: MEDICATION MGT NOTE DATE OF NOTE: APR 09, 2024@11:34 ENTRY DATE: APR 09, 2024@11:34:34 AUTHOR: DEJAN GUTIERREZ EXP COSIGNER: URGENCY: STATUS: COMPLETED Review of medications include: Patient allergies (Remote and Local) and active and pending prescriptions dispensed from this [place] (local) and dispensed from another [place] or [facility] facility (remote and pending) as well as local inpatient orders (pending and active) and clinic medications (IMOs), locally documented non-VA medications and local prescriptions that have or been discontinued in the past 90 days. With the exception of Allergies, if a category is not listed below, it means there were no relevant medications for the patient. ALLERGIES: Patient has answered NKA No Remote Allergy/ADR Data available for this patient ACTIVE OUTPATIENT MEDICATIONS LOCAL/REMOTE APIXABAN 5MG TAB Directions: TAKE ONE-HALF TABLET BY MOUTH TWICE A DAY TO THIN BLOOD -CALL ANTICOAGULATION CLINIC [phone] WITH QUESTIONS OR CONCERNS Quantity: 60 for 60 days Issued: 11/22/23 Filled: 02/26/24 Expires: 11/22/24 Refills: 5 Status: ACTIVE ATORVASTATIN CALCIUM 40MG TAB Directions: TAKE ONE-HALF TABLET BY MOUTH DAILY FOR CHOLESTEROL Quantity: 45 for 90 days Issued: 07/25/23 Filled: 04/17/24 Expires: 07/25/24 Refills: 0 Status: ACTIVE CHLORTHALIDONE 25MG TAB Directions: TAKE ONE TABLET BY MOUTH DAILY FOR BLOOD PRESSURE Quantity: 60 for 60 days Issued: 02/21/24 Filled: 02/22/24 Expires: 04/21/24 Refills: 0 Status: ACTIVE FLUOXETINE HCL 20MG CAP Directions: TAKE ONE CAPSULE BY MOUTH DAILY FOR MOOD Quantity: 90 for 90 days Issued: 05/21/23 Filled: 01/16/24 Expires: 05/21/24 Refills: 0 Status: ACTIVE GABAPENTIN 300MG CAP Directions: TAKE TWO CAPSULES BY MOUTH TWICE A DAY FOR NERVE PAIN Quantity: 120 for 30 days Issued: 10/08/23 Filled: 02/29/24 Expires: 10/08/24 Refills: 0 Status: ACTIVE [id number] PENTOXIFYLLINE SA 400MG/PBO Directions: TAKE ONE TABLET BY MOUTH TWICE A DAY WITH FOOD. SWALLOW WHOLE-DO NOT CHEW, CRUSH OR CUT Quantity: 200 for 90 days Issued: 03/27/24 Filled: 03/28/24 Expires: 06/25/24 Refills: 0 Status: ACTIVE LISINOPRIL 40MG TAB Directions: TAKE ONE TABLET BY MOUTH DAILY FOR BLOOD PRESSURE/HEART Quantity: 90 for 90 days Issued: 05/21/23 Filled: 03/03/24 Expires: 05/21/24 Refills: 0 Status: ACTIVE METFORMIN HCL 500MG TAB Directions: TAKE ONE TABLET BY MOUTH TWICE A DAY FOR DIABETES Quantity: 60 for 30 days Issued: 04/04/24 Filled: 04/04/24 Expires: 05/04/24 Refills: 0 Status: ACTIVE METOPROLOL TARTRATE 50MG TAB Directions: TAKE ONE-HALF TABLET BY MOUTH TWICE A DAY FOR RAPID HEARTBEAT Quantity: 90 for 90 days Issued: 04/01/24 Filled: 04/03/24 Expires: 06/30/24 Refills: 0 Status: ACTIVE PANTOPRAZOLE NA 40MG EC TAB Directions: TAKE ONE TABLET BY MOUTH TWICE A DAY 30 MINUTES BEFORE A MEAL FOR STOMACH, 30 MINUTES BEFORE A MEAL. TAKE ON AN EMPTY STOMACH. Quantity: 180 for 90 days Issued: 05/21/23 Filled: 01/14/24 Expires: 05/21/24 Refills: 0 Status: ACTIVE SPIRONOLACTONE 25MG TAB Directions: TAKE ONE TABLET BY MOUTH DAILY FOR BLOOD PRESSURE/HEART Quantity: 90 for 90 days Issued: 05/21/23 Filled: 02/17/24 Expires: 05/21/24 Refills: 0 Status: ACTIVE No remote medications found. PENDING OUTPATIENT MEDICATIONS (LOCAL/REMOTE): No local medications found. No remote medications found. ACTIVE NONVA MEDICATIONS (LOCAL): No local medications found. OUTPATIENT MEDICATIONS (LOCAL)WITHIN 90 DAYS: CHLORTHALIDONE 25MG TAB Directions: TAKE ONE TABLET BY MOUTH DAILY FOR BLOOD PRESSURE Quantity: 30 for 30 days Issued: 01/14/24 Filled: 01/14/24 Expires: 02/13/24 Refills: 0 Status: DISCONTINUED OUTPATIENT MEDICATIONS (LOCAL) WITHIN 90 DAYS: AMLODIPINE BESYLATE 10MG TAB Directions: TAKE ONE TABLET BY MOUTH DAILY FOR BLOOD PRESSURE/HEART - DO NOT DRINK GRAPEFRUIT JUICE WHILE ON THIS DRUG REPLACES NIFEDIPINE Quantity: 90 for 90 days Issued: 05/21/23 Filled: 08/26/23 Expires: 05/21/24 Refills: 2 Status: DISCONTINUED DESONIDE 0.05% CREAM Directions: APPLY SMALL AMOUNT TO AFFECTED AREA TWICE A DAY FOR SKIN RASH -APPLY TO DRY SCALY AREAS OF FACE AND EARS UNTIL CLEAR AND THEN NEEDED. Quantity: 60 for 60 days Issued: 03/12/23 Filled: 03/13/23 Expires: 03/12/24 Refills: 5 Status: DISCONTINUED GABAPENTIN 300MG CAP Directions: TAKE THREE CAPSULES BY MOUTH TWICE A DAY FOR PAIN Quantity: 180 for 30 days Issued: 01/24/23 Filled: 06/24/23 Expires: 01/25/24 Refills: 0 Status: DISCONTINUED GABAPENTIN 300MG CAP Directions: TAKE TWO CAPSULES BY MOUTH TWICE A DAY FOR NERVE PAIN Quantity: 120 for 30 days Issued: 07/26/23 Filled: 08/26/23 Expires: 07/26/24 Refills: 0 Status: DISCONTINUED [id number] PENTOXIFYLLINE SA 400MG/PBO Directions: TAKE ONE TABLET BY MOUTH TWICE A DAY WITH FOOD. SWALLOW WHOLE-DO NOT CHEW, CRUSH OR CUT Quantity: 200 for 90 days Issued: 12/31/23 Filled: 12/31/23 Expires: 03/30/24 Refills: 0 Status: DISCONTINUED KETOCONAZOLE 2% SHAMPOO Directions: SHAMPOO WITH SMALL AMOUNT AFFECTED AREA DAILY FOR FUNGAL INFECTION -APPLY TO SCALP/LEAVE ON 5 MINUTES/WASH OFF Quantity: 120 for 30 days Issued: 03/12/23 Filled: 03/13/23 Expires: 03/12/24 Refills: 11 Status: DISCONTINUED METFORMIN HCL 500MG TAB Directions: TAKE ONE TABLET BY MOUTH TWICE A DAY FOR DIABETES Quantity: 180 for 90 days Issued: 05/21/23 Filled: 12/31/23 Expires: 05/21/24 Refills: 0 Status: DISCONTINUED METOPROLOL TARTRATE 50MG TAB Directions: TAKE ONE-HALF TABLET BY MOUTH TWICE A DAY FOR RAPID HEARTBEAT Quantity: 90 for 90 days Issued: 05/21/23 Filled: 12/31/23 Expires: 05/21/24 Refills: 0 Status: DISCONTINUED APIXABAN 5MG TAB Directions: TAKE ONE TABLET BY MOUTH TWICE A DAY TO THIN BLOOD -CALL ANTICOAGULATION CLINIC [phone] WITH QUESTIONS OR CONCERNS Quantity: 60 for 30 days Issued: 04/13/23 Filled: 04/13/23 Expires: 04/13/24 Refills: 1 Status: DISCONTINUED (EDIT) APIXABAN 5MG TAB Directions: TAKE ONE TABLET BY MOUTH TWICE A DAY TO THIN BLOOD -CALL ANTICOAGULATION CLINIC [phone] WITH QUESTIONS OR CONCERNS Quantity: 120 for 60 days Issued: 04/27/23 Filled: 11/04/23 Expires: 04/27/24 Refills: 2 Status: DISCONTINUED (EDIT) CHLORTHALIDONE 25MG TAB Directions: TAKE ONE-HALF TABLET BY MOUTH DAILY FOR BLOOD PRESSURE Quantity: 45 for 90 days Issued: 05/21/23 Filled: 11/14/23 Expires: 05/21/24 Refills: 1 Status: DISCONTINUED (EDIT) CLINIC MEDICATIONS (LOCAL): No local medications found. /arleth/ Dejan Gutierrez MD Primary Care Attending Signed: 04/09/2024 11:34 DEJAN GUTIERREZ [facility] Apr 09, 2024 10:37 AM PRIMARY CARE NURSI NG NOTE: LOCAL TITLE: Helpr Tech/artillery specialist Note STANDARD TITLE: PRIMARY CARE NURSING NOTE DATE OF NOTE: APR 09, 2024@10:37 ENTRY DATE: APR 09, 2024@10:37:08 AUTHOR: YURY ZELAYA COSIGNER: URGENCY: STATUS: COMPLETED The patient was given a list of his current medications, instructed to review and discuss any changes or problems with their provider. Patient advised to carry a list of current medications and any allergies with them in the event of emergency situations. Yes - /Caregiver verbalized understanding of topics discussed and education provided Provider notified of elevated B/P >/= 140/90. Not Applicable Alcohol Use Screen (AUDIT-C): Alcohol Screen: SCREEN FOR ALCOHOL (AUDIT-C) An alcohol screening test (AUDIT-C) was negative (score=1). 1. How often did you have a drink containing alcohol in the past year? Consider a drink to be a 12 ounce can or bottle of regular beer, 8 ounces of malt liquor, a 5 ounce glass of table wine, or a 1.5 ounce shot of liquor (like scotch, gin, or vodka). Monthly or less 2. How many drinks containing alcohol did you have on a typical day when you were drinking in the past year? One or two drinks 3. How often did you have six or more drinks on one occasion in the past year? Never Depression Screening: Perform PHQ-2 A PHQ-2 screen was performed. The score was 0 which is a negative screen for depression. Over the past two weeks, how often have you been bothered by the following problems? 1. Little interest or pleasure in doing things Not at all 2. Feeling down, depressed, or hopeless Not at all Influenza Immunization: Influenza, High-Dose, Trivalent, Preservative Free (Fluzone-Syringe) Administered: INFLUENZA, HIGH-DOSE, TRIVALENT, PF Date Administered: Apr 09, 2024 10:30 Series: Complete State Wildlife Officer: ELADIA PASTEUR Lot: [id number] Exp Date: Jan 26, 2025 [facility]: [id number] Admin Route/Site: INTRAMUSCULAR/LEFT DELTOID Dosage: 0.5mL Vaccine Information Statement(s): INFLUENZA(FLU) VACC(INACTIVATED OR RECOMBINANT)VIS Mar 04, 2021 ([place]) Order By: Policy Administered By: Yury Zelaya The Influenza Vaccine Information Statement (VIS) was reviewed with the patient/caregiver which lists the benefits and risks of the vaccine and the risks of not receiving the Influenza vaccine. The patient/caregiver denied any prior severe reaction to this vaccine or its components or a severe allergic reaction, such as anaphylaxis, to any vaccine or any injectable therapy. The patient/caregiver gave verbal consent to receive the vaccine. Suicide Screen: C-SSRS Screening [place] Suicide Severity Rating Scale (C-SSRS) screener 1. Over the past month, have you wished you were or wished you could go to sleep and not wake up? No 2. Over the past month, have you had any actual thoughts of killing yourself? No 3. Over the past month, have you been thinking about how you might do this? Response not required due to responses to other questions. 4. Over the past month, have you had these thoughts and had some intention of acting on them? Response not required due to responses to other questions. 5. Over the past month, have you started to work out or worked out the details of how to kill yourself? Response not required due to responses to other questions. 6. If yes, at any time in the past month did you intend to carry out this plan? Response not required due to responses to other questions. 7. In your lifetime, have you ever done anything, started to do anything, or prepared to do anything to end your life (for example, collected pills, obtained a gun, gave away valuables, went to the roof but didn't jump)? No 8. If YES, was this within the past 3 months? Response not required due to responses to other questions. Sexual Orientation: The patient thinks of their sexual orientation as: Straight or Heterosexual Toxic Exposure Screening: The [place]/caregiver was asked if they believe the [place] experienced any toxic exposure(s), such as Airborne Hazards and Open Burn Pit, [place] War related exposures, Agent [place], Radiation, contaminated water at [place] or other such exposures, while serving in the [employer]. [place]/caregiver doesn't know of concerns about exposure to harmful substances while serving in the [employer]. Printed information was offered and contact information for local resources were provided if requested. No questions at this time [place]/caregiver was informed of local points of contact. Contact information for local resources: Benefits/Claim Questions: Veterans Benefits Administration (VBA): [place] [employer] Enrollment: Health Benefits: [phone] Ext. [phone] Registry Coordinator: Ext. [phone] ADL/IADL Functional Measures(V9): Incontinence Screen: Within the past 12 months, has the patient had any characteristics of incontinence (ability, voiding, leakage, etc.)? YES - Incontinence is a problem for this patient. Is urinary incontinence NEW for this patient? YES - Incontinence is a new problem. How would you rate your incontinence? Moderate Falls Screen: Patient does not report falls within the past 12 months. Dementia Warning Signs: Please indicate below whether the patient or caregiver report any warning signs of Dementia? No warning signs of dementia noted. Bermudez Index of [place] in Activities of Daily Living: BERMUDEZ INDEX FOR ADL ASSESSMENT: BERMUDEZ Index of [place] in Activities of Daily Living was completed at this encounter. BATHING: Patient needs no supervision, direction or personal assistance with bathing. DRESSING: Patient needs no supervision, direction or personal assistance with dressing. TOILETING: Patient needs no supervision, direction or personal assistance with toileting. TRANSFERRING: Patient needs no supervision, direction or personal assistance with transferring. CONTINENCE: Patient needs no supervision, direction or personal assistance with bowel continence. FEEDING: Patient needs no supervision, direction or personal assistance with feeding/eating. ENTER TOTAL SCORE BELOW: TOTAL POINTS: = [ 6 ] NOTE: 6-5 = FULL FUNCTION (patient independent) INSTRUMENTAL ACTIVITIES OF DAILY LIVING (IADL) SCALE ([place]) Telephone: 1 point - Looks up numbers, dials, receives and makes calls without help Shoppin point - Takes care of all shopping needs independently Food preparation: 1 point - Plans, prepares, and serves adequate meals independently Housekeepin point - Needs help with all home maintenance tasks Laundry: 1 point - Able to do personal laundry completely. Mode of transportation: 1 point - Travels independently on public transportation or drives own car Responsibility for own medications: 1 point - Is responsible for taking medication in correct dosages at correct time Ability to handle finances: 1 point - Manages financial matters independently (budgets, writes checks, pays rent and bills, goes to bank), collects and keeps track of income SCORING: The total score may range from 0 - 8. A lower score indicates a higher level of dependence. Total score: 8 points Learning Readiness Assessment: Preferred language for discussing health care Mongolian REASSESSMENT LEARNING BARRIERS Visual Barrier Comment: GLASSES Dexterity/Mobility Barrier Comment: Cane READING LIMITATIONS No reading limitations PREFERRED METHODS FOR LEARNING Written/Printed Material Verbal Demonstration (Audio/Visual) INTERESTED IN LEARNING (MOTIVATED) No PERSON BEING EDUCATED TODAY Patient Education was provided on the following topics RESPONSE Verbalizes Successfully Tobacco Use Screening: The patient is a former tobacco user. The patient quit fifteen or more years ago. Pneumococcal Conjugate Vaccine (PCV15/PCV20): Refuses PCV vaccine Immunization: PNEUMOCOCCAL CONJUGATE, UNSPECIFIED FORMULATION Refusal Reason: PATIENT DECISION Patient refuses all immunization(s) in the PneumoPCV group Date Documented: 04/09/24 10:45 Td / Tdap Immunization: The patient declines to receive the recommended dose of Td/Tdap vaccine. Immunization: TD(ADULT) UNSPECIFIED FORMULATION Refusal Reason: PATIENT DECISION Patient refuses all immunization(s) in the Td group Date Documented: 04/09/24 10:45 /arleth/ YURY ZELAYA GROUNDMAN STAFF GROUNDMAN Signed: 04/09/2024 10:52 YURY ZELAYA [facility] Apr 09, 2024 10:22 AM PRIMARY CARE NOTE: LOCAL TITLE: PC PROGRESS NOTE STANDARD TITLE: PRIMARY CARE NOTE DATE OF NOTE: APR 09, 2024@10:22 ENTRY DATE: APR 09, 2024@10:22:49 AUTHOR: DEJAN GUTIERREZ COSIGNER: URGENCY: STATUS: COMPLETED PC PROGRESS NOTE Has ADDENDA ID: CHELSEY SHELBY is a 78 year old WHITE MALE Patient's agenda/concerns: routine f/u of May 08, 2023 appt for chronic medical problems. CC: SUBJECTIVE: Pt here for routine f/u with family. Pt states has been more tired recently and ongoing dyspnea with any exertion. States the littlest thing will set him off. Due for cardiology f/u next month. States has been having intermittent posterior head pains and worsened by moving his neck side to side, comes and goes for months. Willing for PT eval. States still on same meds. States willing for stress test and pfts. States gaining wt and can't get active like he'd like. Outside providers? Dentist? 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 ([facility] [id number]) M65.322 Acquired trigger finger of left index finger ([facility] [id number]) E11.40 Diabetic neuropathy ([facility] [id number]) K22.70 Jay's Esophagus ([facility] [id number]) K63.5 Adenomatous polyp of colon ([facility] [id number]) M70.60 Bilateral hip joint pain ([facility] [id number]) L21.9 Seborrheic dermatitis ([facility] [id number]) 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 ([facility] [id number]) M54.50 Chronic low back pain ([facility] [id number]) F41.1 Anxiety disorder ([facility] [id number]) F33.40 Depressive disorder ([facility] [id number]) M47.16 Lumbar spondylosis with myelopathy ([facility] [id number]) V12.51 Personal History of Venous Thrombosis and Embolism (ICD-9-CM V12.51) G47.33 Obstructive sleep apnea syndrome ([facility] [id number]) E66.09 Obesity ([facility] [id number]) E78.2 Mixed hyperlipidemia ([facility] [id number]) I12.9 Benign hypertensive renal disease ([facility] [id number]) Tob/ETOH/Drug use: Tob-quit 09/14/2007 smoked from age 15. Smoked ~ 1ppd. ETOH- occasional Recreational drugs- denies Immunizations: vaccines okay MEDS Active Outpatient Medications (including Supplies): APIXABAN 5MG TAB TAKE ONE-HALF TABLET BY MOUTH TWICE A DAY ACTIVE TO THIN BLOOD -CALL ANTICOAGULATION CLINIC [phone] WITH QUESTIONS OR CONCERNS ATORVASTATIN CALCIUM 40MG TAB TAKE ONE-HALF TABLET BY ACTIVE MOUTH DAILY FOR CHOLESTEROL CHLORTHALIDONE 25MG TAB TAKE ONE TABLET BY MOUTH DAILY FOR ACTIVE BLOOD PRESSURE FLUOXETINE HCL 20MG CAP TAKE ONE CAPSULE BY MOUTH DAILY ACTIVE FOR MOOD GABAPENTIN 300MG CAP TAKE TWO CAPSULES BY MOUTH TWICE A ACTIVE DAY FOR NERVE PAIN [id number] PENTOXIFYLLINE SA 400MG/PBO TAKE ONE TABLET BY ACTIVE MOUTH TWICE A DAY WITH FOOD. SWALLOW WHOLE-DO NOT CHEW, CRUSH OR CUT LISINOPRIL 40MG TAB TAKE ONE TABLET BY MOUTH DAILY FOR ACTIVE BLOOD PRESSURE/HEART METFORMIN HCL 500MG TAB TAKE ONE TABLET BY MOUTH TWICE A ACTIVE DAY FOR DIABETES METOPROLOL TARTRATE 50MG TAB TAKE ONE-HALF TABLET BY MOUTH ACTIVE TWICE A DAY FOR RAPID HEARTBEAT PANTOPRAZOLE NA 40MG EC TAB TAKE ONE TABLET BY MOUTH TWICE ACTIVE A DAY 30 MINUTES BEFORE A MEAL FOR STOMACH, 30 MINUTES BEFORE A MEAL. TAKE ON AN EMPTY STOMACH. SPIRONOLACTONE 25MG TAB TAKE ONE TABLET BY MOUTH DAILY FOR ACTIVE BLOOD PRESSURE/HEART ALLERGIES: Patient has answered NKA ROS: General: no fever/chills, +obese CVS: no chest pain, +HTN Resp: no change in breathing, chronic AMARAL GI: no n/v/d/hemachezia : no hematuria, dysuria MSK: chronic joint pain OBJECTIVE: Vital Signs PULSE: 66 (04/09/2024 10:51) TPR: 98.1 F [36.7 C] (04/09/2024 10:51) BP: 127/75 (04/09/2024 10:51) RESP: 18 (05/10/2023 15:04) Pain: 5 (04/09/2024 10:51) Weight: 317.4 lb [143.97 kg] (04/09/2024 10:51) General: Awake, alert in nad, walks with cane Skin:warm and dry Heart: RRR, no noted murmur Lungs: CTAB, no crackles or wheezes, good effort, no retractions Abd:+BS, NT/ND, soft Ext: no pitting edema in ble Neuro:speech and gait intact. Pysch: Mood-pleasant; Insight-intact; Judgement-good; affect-normal Labs: had labs prior to appt. Imaging: none Review of records: I have reviewed previous pc note. Assessment/Plan: 1. Hypertensive chronic kidney disease with stage 1 through stage 4 chronic kidney disease, or unspecified chronic kidney disease WITH Chronic kidney disease, stage 3 unspecified-stable -discussed BP goal < 130/80 all the time. -off amlodipine with peripheral edema -cont chlorthalidone 25mg daily -cont spironolactone 25mg daily -cont lisinopril 40mg daily -on metoprolol 25mg BID -check p1 2. Mixed hyperlipidemia -cont lipitor 20mg daily -check lipids, p2 3. Obstructive sleep apnea WITH Dependence on other enabling machines and devices stable -compliant with cpap last check 4. Morbid Obesity due to excess calories- -BMI 40.4 -saw [facility] previously, declines referral back or to artillery specialist. 5. Other chronic pain and Low back pain, unspecified -fair control -sees pain clinic here for injections, seeing PT and PM&R for back. -cont gabapentin, will update UDS today. 6. Type 2 Diabetes Mellitus with Diabetic Neuropathy, unspecified AND Type 2 diabetes mellitus with diabetic chronic kidney disease WITH group home (current) use of oral hypoglycemic drugs -followed by podiatry -on metformin 500mg BID -on lisinopril -check a1c, p1, microalbumin/cr 7. 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 Paroxysmal atrial fibrillation WITH terminal carman (current) use of anticoagulants -on apixiban 9. Dyspnea, unspecified -refer for updated PFTs, consider nuclear stress, due for cardiology f/u next month. Health Maintanance/Preventative medicine exam The /caregiver voiced understanding of topics covered/discussed in today's visit. The Outpatient Essential Medication List for review (EMLR) was reviewed with the patient/caregiver and the patient was provided or refused an updated reconciled medication list Discrepancies were corrected or sent to the ordering provider to correct ( ) /caregiver not given a copy of EMLR ( ) [place]/caregiver refused a copy of EMLR and stated they will maintain their own list ( x ) /caregiver was handed a copy of EMLR at todays visit ( ) /caregiver requests copy of EMLR to be mailed to them at their address (verify address on file) ( ) [place]/caregiver requests copy of EMLR to be sent to them via Secure Messaging (must have My [employer] account) RTC: 11 months or prn Labs to be ordered at next visit: nonfasting a1c, microalbumin/cr, tsh, panel 5 and lipids. CARLOS-DM HbA1c not done: Glycohemoglobin (HgbA1c) ordered /arleth/ Dejan Gutierrez MD Primary Care Attending Signed: 04/09/2024 11:34 04/16/2024 ADDENDUM STATUS: COMPLETED checked with cardiology high risk case manager, recommended going ahead with stress test being ordered before f/u next month in their clinic /chema Gutierrez MD Primary Care Attending Signed: 04/16/2024 15:31 Receipt Acknowledged By: * AWAITING SIGNATURE * [facility] Apr 01, 2024 11:45 AM ACCOUNTING OF DISC LOSURES NOTE: LOCAL TITLE: STATE PRESCRIPTION DRUG MONITORING PROGRAM STANDARD TITLE: ACCOUNTING OF DISCLOSURES NOTE DATE OF NOTE: APR 01, 2024@11:45:26 ENTRY DATE: APR 01, 2024@11:45:26 AUTHOR: DEJAN GUTIERREZ EXP COSIGNER: URGENCY: STATUS: COMPLETED This PDMP query was submitted by Dejan Gutierrez MD. The clinical justification for this PDMP query is to review controlled substances prescribed outside of the [facility], and any additional information that may become available, as an important component of standard clinical care, and in accordance with [facility] policy. Patient information was shared with the PDMP [place]. No prescription(s) for controlled substances outside the [facility] were found in the last 90 days. /arleth/ Dejan Gutierrez MD Primary Care Attending Signed: 04/01/2024 11:46 DEJAN GUTIERREZ [facility]
--- OUTSIDE RECORDS SUMMARY | 2024-04-15 08:23 | XMS_ITS | Encounter Summary ---
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 Role Phone ESTELA MAYLIN Primary Care Provider Unavailabl e Insurance Providers: [...] RISSA SHIRLEY Mar 04, 2012 RISSA RODRIGUEZ [id number] NORMA HSELBY PATIENT [employer]NA [facility] (WNR) MEDICARE ADVANTAGE [facility] (WNR) Jul 30, 2017 [id number] HERONNORMAJoel GODOYE PATIENT [employer] [facility] (WNR) MEDICARE ADVANTAGE [facility](W NR) Jul 30, 2017 [id number] HERONNORMAJoel GODOYE PATIENT [employer] [facility] (WNR) [facility] BRAULIO Connell Jul 30, 2012 [id number] NORMA SHELBY PATIENT MEDICARE (WNR) MEDICARE (M) PART A Jul 30, 2017 PART A [id number] NORMA SHELBY PATIENT MEDICARE (WNR) MEDICARE (M) PART B Jul 30, 2017 PART B [id number] NORMA SHELBY PATIENT MEDICARE PART D (WNR) PRESCRIPT ION PART D Jul 30, 2017 PART D [id number] NORMA SHELBY PATIENT MEDICARE PART D (WNR) MEDICARE (M) PART D Jul 30, 2017 PART D [id number] NORMA SHELBY PATIENT MEDICARE PART D (WNR) MEDICARE (M) PART D Jul 30, 2017 PART D [id number] NORMA SHELBY PATIENT MEDICARE PART D (WNR) MEDICARE (M) PART D Jul 30, 2012 PART D [id number] NORMA SHELBY PATIENT Selected Encounter This section includes the information on record at [place] for the Encounter. Date/Time Encounter Type Encounter Description Reason Provider Source Apr 15, 2024 12:23 PM EMERGENCY DEPT VISIT MOD [facility] DEPT ICD-10-CM R19.7 Diarrhea, unspecified COBY GRISSOM L [facility] Encounter Template Text not used by [place] Assessments - Encounter Diagnoses This section includes the primary and secondary diagnoses documented for the Encounter. Date/Time Primary/Secondary Diagnosis Diagnosis Name Provider Source Apr 15, 2024 11:25 PM PRIMARY Diarrhea, unspecified JERALD GRISSOM [facility] Apr 15, 2024 11:25 PM SECONDARY Acute kidney failure, unspecified JERALD GRISSOM-CHRISTIANO Rangel [facility] Plan of Treatment: Future Appointments (+ 6 months) and Future Tests (+/- 45 days) The Plan of Treatment section includes future care activities for the patient from all [place] treatmentfacilities. This section includes future appointments and future orders which are active, pending or scheduled. Future Appointments This section includes appointments that were scheduled to occur 6 months from the date of the Encounter, up to a maximum of 20 appointments. The data comes from all [place] treatment facilities. Appointment Date/Time Appointment Type Appointme nt Facility Name May 05, 2024 02:15 PM AMBULATORY - MEDICINE [facility] May 09, 2024 10:30 AM AMBULATORY - MEDICINE [facility] May 20, 2024 11:00 AM AMBULATORY - MEDICINE [facility] Jun 25, 2024 09:45 AM AMBULATORY - MEDICINE [facility] Jul 08, 2024 01:40 PM AMBULATORY - SURGERY [facility] Sep 16, 2024 01:20 PM AMBULATORY - MEDICINE [facility] Active, Pending, and Scheduled Orders This section includes a listing of several types of active, pending, and scheduled orders, including clinic medications orders, diagnostic test orders, procedure orders and consult orders; where the start date of the order is 45 days before the date of the Encounter or 45 days after the date of theEncounter. The data comes from all [place] treatment facilities. Test Date/Time Test Type Test Details Facility Name Apr 15, 2024 02:03 PM Laboratory - Chemi stry Order CBC/PLT [id number] BLOOD STAT WC ONCE [facility] Lab Results: +/- 30 days of [...] Type Comment May 05, 2024 02:08 PM [facility] PANEL 1 PLASMA Specimen Type: PLASMA [...] decrease <15 G5 Kidney failure Ordering Provider: MAYLIN PALMER Report Released Date/Time: Apr 21, 2024 11:25 AM Reporting Lab: [address] [address] Performing Lab: [address] [address] CREATININE 2.39 mg/dL H 0.72-1.25 UREA NITROGEN 30 mg/dL H 9-25 GLUCOSE 126 mg/dL H 74-100 SODIUM 140 mmol/L 136-145 POTASSIUM 5.0 mmol/L 3.5-5.1 CHLORIDE 110 mmol/L H 98-107 CO2 21 mmol/L L 22-29 CALCIUM 9.9 mg/dL 8.4-10.2 ANION GAP 9 meq/L 3-19 eGFR (CKD-EPI) Apr 18, 2024 11:13 AM [facility] GLUCOSE-HAND MONITOR CAPILLARY Specime n Type: CAPILLARY Comment: Test performed by: [id number] Meter #: [id number] Ordering Provider: CHERYL HURT Report Released Date/Time: Apr 18, 2024 11:44 AM Reporting Lab: [address] [address] Performing Lab: [address] [address] GLUCOSE-HAND MONITOR 110 mg/dL H 71-99 Apr 18, 2024 07:58 AM [facility] PANEL 1 PLASMA Specimen Type: PLASM [...] decrease <15 G5 Kidney failure Ordering Provider: PROSCHEL,GEOVANNI M Report Released Date/Time: Apr 17, 2024 03:26 PM Reporting Lab: [place] [id number] Performing Lab: [place] [id number] CREATININE 2.05 mg/dL H 0.72-1.25 UREA NITROGEN 28 mg/dL H 9-25 GLUCOSE 177 mg/dL H 74-100 SODIUM 137 mmol/L 136-145 POTASSIUM 4.3 mmol/L 3.5-5.1 CHLORIDE 109 mmol/L H 98-107 CO2 21 mmol/L L 22-29 CALCIUM 8.6 mg/dL 8.4-10.2 ANION GAP 7 meq/L 3-19 eGFR (CKD-EPI) 32 Apr 18, 2024 07:00 AM [facility] GLUCOSE-HAND MONITOR CAPILLARY Specime n Type: CAPILLARY Comment: CARLOS RN notified Test performed by: [id number] Meter #: [id number] Ordering Provider: CHERYL HURT Report Released Date/Time: Apr 18, 2024 07:22 AM Reporting Lab: [place] [id number] Performing Lab: [place] [id number] GLUCOSE-HAND MONITOR 127 mg/dL H 71-Apr 17, 2024 08:26 PM [facility] GLUCOSE-HAND MONITOR CAPILLARY Specime n Type: CAPILLARY Comment: CARLOS RN notified Test performed by: [id number] Meter #: [id number] Ordering Provider: CHERYL HURT Report Released Date/Time: Apr 17, 2024 09:24 PM Reporting Lab: [address] [address] Performing Lab: [place] [id number] GLUCOSE-HAND MONITOR 164 mg/dL H 71-Apr 17, 2024 04:45 PM [facility] GLUCOSE-HAND MONITOR CAPILLARY Specime n Type: CAPILLARY Comment: CARLOS RN notified Test performed by: [id number] Meter #: [id number] Ordering Provider: CHERYL HURT Report Released Date/Time: Apr 17, 2024 05:19 PM Reporting Lab: [address] [address] Performing Lab: [address] [address] GLUCOSE-HAND MONITOR 161 mg/dL H Apr 17, 2024 12:11 PM [facility] GLUCOSE-HAND MONITOR CAPILLARY Specime n Type: CAPILLARY Comment: Test performed by: [id number] Meter #: [id number] Ordering Provider: CHERYL HURT Report Released Date/Time: Apr 17, 2024 12:46 PM Reporting Lab: [address] [address] Performing Lab: [address] [address] GLUCOSE-HAND MONITOR 116 mg/dL H Apr 17, 2024 07:33 AM [facility] PANEL 1 PLASMA Specimen Type: PLASM [...] Apr 16, 2024 03:40 PM Reporting Lab: [address] [address] Performing Lab: [place] [id number] CREATININE 2.39 mg/dL H 0.72-1.25 UREA NITROGEN 35 mg/dL H 9-25 GLUCOSE 117 mg/dL H 74-100 SODIUM 138 mmol/L 136-145 POTASSIUM 4.3 mmol/L 3.5-5.1 CHLORIDE 110 mmol/L H 98-107 CO2 22 mmol/L 22-29 CALCIUM 8.7 mg/dL 8.4-10.2 ANION GAP 6 meq/L 3-19 eGFR (CKD-EPI) Apr 17, 2024 07:33 AM [facility] CBC/PLT BLOOD Specimen Type: BLOOD No comment entered. Ordering Provider: EDGARDO GARCIA Report Released Date/Time: Apr 16, 2024 03:40 PM Reporting Lab: [address] [address] Performing Lab: [address] [address] WBC 8.8 10*3/uL 5.0-10.0 RBC 4.05 10*6/uL L 4.6-6.2 HGB 11.4 g/dL L 14.0-18.0 HCT 36.1 L 42.0-52.0 MCV 89.1 fL 80.0-94.0 MCH 28.1 pg 27.0-31.0 MCHC 31.6 g/dL L 32.0-36.0 PLT 165 10*3/uL 150-450 MPV 10.4 fL 9.0-13.1 RDW 13.4 11.0-16.0 NRBC 0.0 0.0-0.0 Apr 17, 2024 06:55 AM [facility] GLUCOSE-HAND MONITOR CAPILLARY Specime n Type: CAPILLARY Comment: CARLOS RN notified Test performed by: [id number] Meter #: [id number] Ordering Provider: CHERYL HURT Report Released Date/Time: Apr 17, 2024 07:16 AM Reporting Lab: [address] [address] Performing Lab: [place] [id number] GLUCOSE-HAND MONITOR 125 mg/dL H 71-99 Apr 16, 2024 08:45 PM [facility] GLUCOSE-HAND MONITOR CAPILLARY Specime n Type: CAPILLARY Comment: CARLOS RN notified Test performed by: [id number] Meter #: [id number] Ordering Provider: CHERYL HURT Report Released Date/Time: Apr 16, 2024 10:14 PM Reporting Lab: [address] [address] Performing Lab: [place] [id number] GLUCOSE-HAND MONITOR 138 mg/dL H -Apr 16, 2024 04:48 PM [facility] GLUCOSE-HAND MONITOR CAPILLARY Specime n Type: CAPILLARY Comment: CARLOS RN notified Test performed by: [id number] Meter #: [id number] Ordering Provider: CHERYL HURT Report Released Date/Time: Apr 16, 2024 05:42 PM Reporting Lab: [address] [address] Performing Lab: [address] [address] GLUCOSE-HAND MONITOR 110 mg/dL H 71-99 Apr 16, 2024 12:03 PM [facility] GLUCOSE-HAND MONITOR CAPILLARY Specime n Type: CAPILLARY Comment: CARLOS RN notified Test performed by: [id number] Meter #: [id number] Ordering Provider: CHERYL HURT Report Released Date/Time: Apr 16, 2024 01:01 PM Reporting Lab: [address] [address] Performing Lab: [address] [address] GLUCOSE-HAND MONITOR 126 mg/dL H 71-99 Apr 16, 2024 08:10 AM [facility] CBC/PLT BLOOD Specimen Type: BLOOD No comment entered. Ordering Provider: EDGARDO GARCIA Report Released Date/Time: Apr 15, 2024 11:24 PM Reporting Lab: [address] [address] Performing Lab: [address] [address] WBC 9.5 10*3/uL 5.0-10.0 RBC 4.19 10*6/uL L 4.6-6.2 HGB 11.6 g/dL L 14.0-18.0 HCT 37.0 L 42.0-52.0 MCV 88.3 fL 80.0-94.0 MCH 27.7 pg 27.0-31.0 MCHC 31.4 g/dL L 32.0-36.0 PLT 163 10*3/uL 150-450 MPV 10.4 fL 9.0-13.1 RDW 13.5 11.0-16.0 NRBC 0.0 0.0-0.0 Apr 16, 2024 08:10 AM [facility] PANEL 1 PLASMA Specimen Type: PLASM [...] Apr 15, 2024 11:24 PM Reporting Lab: [address] [address] Performing Lab: [address] [address] CREATININE 3.29 mg/dL H 0.72-1.25 UREA NITROGEN 40 mg/dL H 9-25 GLUCOSE 151 mg/dL H 74-100 SODIUM 136 mmol/L 136-145 POTASSIUM 3.7 mmol/L 3.5-5.1 CHLORIDE 109 mmol/L H 98-107 CO2 18 mmol/L L 22-29 CALCIUM 8.5 mg/dL 8.4-10.2 ANION GAP 9 meq/L 3-19 eGFR (CKD-EPI) Apr 16, 2024 06:43 AM [facility] GLUCOSE-HAND MONITOR CAPILLARY Specime n Type: CAPILLARY Comment: Test performed by: [id number] Meter #: [id number] Ordering Provider: CHERYL HURT Report Released Date/Time: Apr 16, 2024 07:14 AM Reporting Lab: [address] [address] Performing Lab: [address] [address] GLUCOSE-HAND MONITOR 111 mg/dL H 71-99 Apr 16, 2024 06:00 AM [facility] MRSA SURVL NARES DNA NARES Specime [...] Apr 15, 2024 11:24 PM Reporting Lab: [place] [id number] Performing Lab: [place] [id number] MRSA SURVL NARES DNA Negative Negative Apr 15, 2024 11:44 PM [facility] GLUCOSE-HAND MONITOR CAPILLARY Specime n Type: CAPILLARY Comment: Test performed by: [id number] Meter #: [id number] Ordering Provider: CHERYL HURT Report Released Date/Time: Apr 16, 2024 12:31 AM Reporting Lab: [address] [address] Performing Lab: [place] [id number] GLUCOSE-HAND MONITOR 149 mg/dL H 71-99 Apr 15, 2024 07:21 PM [facility] OVA AND PARASITE EXAM, GIARDIA (LC) FECES Specimen Type: FECES Comment: No ova, cysts, or parasites seen. . One negative specimen does not rule out the possibility of a parasitic infection. Ordering Provider: CARRINGTON GRISSOM Report Released Date/Time: Apr 15, 2024 06:03 PM Reporting Lab: [address] [address] Performing Lab: [address] [address] .OVA & PARASITE EXAM (LC) Comment .GIARDIA EIA (LC) Negative Negative Apr 15, 2024 07:21 PM [facility] C DIFF TOXIN BY PCR/REFLEX TO EIA FECES Specimen Type: FECES Comment: This [employer] Xpert C DIFF PCR Assay targets the [...] Apr 15, 2024 06:03 PM Reporting Lab: [place] [id number] Performing Lab: [place] [id number] C DIFF TOX B GENE PCR Negative Negative Apr 15, 2024 07:21 PM [facility] WBC FECES (LACTOFERRIN) FECES Spec imen Type: FECES No comment entered. Ordering Provider: CARRINGTON GRISSOM Report Released Date/Time: Apr 15, 2024 06:03 PM Reporting Lab: [place] [id number] Performing Lab: [place] [id number] WBC FECES (LACTOFERRIN) POSITIVE Negativ e Apr 15, 2024 05:53 PM [facility] URINE LYTES URINE Specimen Type : URINE No comment entered. Ordering Provider: CARRINGTON GRISSOM Report Released Date/Time: Apr 15, 2024 04:12 PM Reporting Lab: [place] [id number] Performing Lab: [address] [address] SODIUM 42 mmol/L POTASSIUM 20.7 mmol/L CHLORIDE 28 mmol/L Apr 15, 2024 05:53 PM [facility] URINALYSIS URINE Specimen Type : URINE No comment entered. Ordering Provider: CARRINGTON GRISSOM Report Released Date/Time: Apr 15, 2024 02:03 PM Reporting Lab: [address] [address] Performing Lab: [address] [address] URINE COLOR Yellow Colorless-Yellow APPEARANCE CLOUDY H [...] H None Apr 15, 2024 05:26 PM [facility] MRSA SURVL NARES DNA NARES Specime [...] Apr 15, 2024 04:28 PM Reporting Lab: [address] [address] Performing Lab: [address] [address] MRSA SURVL NARES DNA Negative Negative Apr 15, 2024 02:41 PM [facility] LACTIC ACID PLASMA Specimen Type : PLASMA No comment entered. Ordering Provider: CARRINGTON GRISSOM Report Released Date/Time: Apr 15, 2024 02:03 PM Reporting Lab: [address] [address] Performing Lab: [facility] [address] [facility] [address] LACTIC ACID 1.4 mmol/L 0.5-2.2 Apr 15, 2024 02:41 PM [facility] LIPASE PLASMA Specimen Type: PLASM A [...] Apr 15, 2024 02:03 PM Reporting Lab: [address] [address] Performing Lab: [facility] [address] [facility] [address] LIPASE 11 U/L 878 Apr 15, 2024 02:41 PM [facility] PANEL 2 PLASMA Specimen Type: PLASM [...] Apr 15, 2024 02:03 PM Reporting Lab: [facility] [address] [facility] [address] Performing Lab: [facility] [address] [facility] [address] TOTAL PROTEIN 7.2 g/dL 6.4-8.3 ALBUMIN 3.8 g/dL 3.5-5.2 TOTAL BILIRUBIN 0.6 mg/dL 0.2-1.2 AST 21 U/L 5-34 ALT 18 U/L 0-55 ALK PHOS 60 U/L 40-150 BILIRUBIN-DIRECT 0.2 mg/dL 0.0-0.5 Apr 15, 2024 02:41 PM [facility] PANEL 1 PLASMA Specimen Type: PLASM [...] Apr 15, 2024 02:03 PM Reporting Lab: [address] [address] Performing Lab: [address] [address] CREATININE 4.52 mg/dL H 0.72-1.25 UREA NITROGEN 41 mg/dL H 9-25 GLUCOSE 110 mg/dL H 74-100 SODIUM 135 mmol/L L 136-145 POTASSIUM 3.9 mmol/L 3.5-5.1 CHLORIDE 104 mmol/L 98-107 CO2 20 mmol/L L 22-29 CALCIUM 8.8 mg/dL 8.4-10.2 ANION GAP 11 meq/L 3-19 eGFR (CKD-EPI) 12 Apr 15, 2024 02:41 PM [facility] CBC/PLT BLOOD Specimen Type: BLOOD Comment: ~STAT Ordering Provider: CARRINGTON GRISSOM Report Released Date/Time: Apr 15, 2024 02:03 PM Reporting Lab: [address] [address] Performing Lab: [address] [address] WBC 11.3 10*3/uL H 5.0-10.0 RBC 4.04 10*6/uL L 4.6-6.2 HGB 11.5 g/dL L 14.0-18.0 HCT 36.3 L 42.0-52.0 MCV 89.9 fL 80.0-94.0 MCH 28.5 pg 27.0-31.0 MCHC 31.7 g/dL L 32.0-36.0 PLT 166 10*3/uL 150-450 MPV 10.6 fL 9.0-13.1 RDW 13.6 11.0-16.0 NRBC 0.0 0.0-0.0 Apr 15, 2024 02:41 PM [facility] COVID-19 AND FLU/RSV DIAGNOSTIC PANEL NASOPH [...] Food and Drug Administration's Emergency Use Authorization. [employer] Genexpert (596) Ordering Provider: CARRINGTON GRISSOM Report Released Date/Time: Apr 15, 2024 02:03 PM Reporting Lab: [address] [address] Performing Lab: [place] [id number] COVID-19 PCR (FLUVID) Negative Negative FLU A PCR (FLUVID) Negative Negative FLU B PCR (FLUVID) Negative Negative RSV PCR (FLUVID) Negative Negative Apr 15, 2024 02:41 PM [facility] PROCALCITONIN-[facility] PLASMA Specimen Type: PLASM A Comment: [...] Apr 15, 2024 02:03 PM Reporting Lab: [address] [address] Performing Lab: [address] [address] PROCALCITONIN-[facility] 0.91 ng/mL H 0.00-0.50 Apr 15, 2024 02:41 PM [facility] AUTOMATED DIFF BLOOD Specimen Type : BLOOD Comment: ~STAT Ordering Provider: CARRINGTON GRISSOM Report Released Date/Time: Apr 15, 2024 02:03 PM Reporting Lab: [address] [address] Performing Lab: [address] [address] A-LYMPH % 21.9 L 24.0-44.0 A-MONO % 14.9 H 0.1-6.0 A-GRAN % 58.9 42.0-75.0 A-LYMPH # 2.47 10*3/uL 1.20-3.40 A-MONO # 1.68 10*3/uL H 0.00-0.60 A-GRAN # 6.63 10*3/uL H 1.40-6.50 A-BASO % 0.3 0.0-3.0 A-BASO # 0.03 10*3/uL 0.00-0.20 A-EOS % 3.7 0.0-10.0 A-EOS # 0.42 10*3/uL 0.00-0.70 A-IG % 0.3 0.0-0.5 A-IG # 0.03 10*3/uL 0.00-0.06 Apr 09, 2024 09:58 AM [facility] DRUG SCREEN IN-HOUSE ROUTINE URINE Specimen Type: URINE Comment: Screening method results are unconfirmed and are for medical use only. Unconfirmed screening results must not be used for non-medical purposes. Opiates test most sensitive for morphine, codeine and heroin and less sensitive for hydrocodone and hydromorphone where higher concentrations are needed for cut-off detection. Ordering Provider: MAYLIN PALMER Report Released Date/Time: Apr 08, 2024 10:18 AM Reporting Lab: [address] [address] Performing Lab: [address] [address] TETRAHYDROCANNABINOL SCREEN NEG AMPHETAMINE SCR NEG BARBITURATES SCR NEG BENZODIAZEPINES SCR NEG COCAINE METABOLITE SCR NEG OPIATES SCR NEG METHADONE SCR NEG OXYCODONE SCR NEG Apr 09, 2024 09:58 AM [facility] MICROALBUMIN/CREAT RATIO URINE Specimen Type: URINE No comment entered. Ordering Provider: MAYLIN PALMER Report Released Date/Time: Apr 08, 2024 10:18 AM Reporting Lab: [address] [address] Performing Lab: [address] [address] CREATININE 116.7 mg/dL MICROALBUMIN QUANT 80.2 mg/L H 0.0-30.0 .MICROALBUMIN/CREA RATIO 68.7 ug/mg{creat} Apr 09, 2024 09:50 AM [facility] CBC/PLT BLOOD Specimen Type: BLOOD No comment entered. Ordering Provider: PAIGE MAYERS Report Released Date/Time: Apr 03, 2024 03:39 PM Reporting Lab: [address] [address] Performing Lab: [place] [id number] WBC 13.1 10*3/uL H 5.0-10.0 RBC 4.41 10*6/uL L 4.6-6.2 HGB 12.5 g/dL L 14.0-18.0 HCT 40.2 L 42.0-52.0 MCV 91.2 fL 80.0-94.0 MCH 28.3 pg 27.0-31.0 MCHC 31.1 g/dL L 32.0-36.0 PLT 191 10*3/uL 150-450 MPV 10.8 fL 9.0-13.1 RDW 13.2 11.0-16.0 NRBC 0.0 0.0-0.0 Apr 09, 2024 09:50 AM [facility] AUTOMATED DIFF BLOOD Specimen Type: BLOOD No comment entered. Ordering Provider: PAIGE MAYERS Report Released Date/Time: Apr 03, 2024 03:39 PM Reporting Lab: [address] [address] Performing Lab: [place] [id number] A-LYMPH % 27.0 24.0-44.0 A-MONO % 9.7 [...] 10*3/uL 0.00-0.06 Apr 09, 2024 09:50 AM [facility] GLYCOHEMOGLOBIN BLOOD Specimen Type: BLOOD Comment: [place] guidelines for A1c interpretation: Glycemic control targets are based on Shared Decision Making between clinicians and patients. Criteria used to establish an A1c target recommendation can be found at https://www.ct.gov/qualityandpatientsafety/ and include the use of result accuracy [...] 8.73 and 9.27. Ref: https://ngsp.org/CAPdata.asp. The in-house [employer] D-100 analyzer has a historical CV <= 2%. Contact the laboratory for further performance characteristics of this assay. Ordering Provider: MAYLIN PALMER Report Released Date/Time: Apr 08, 2024 10:18 AM Reporting Lab: [address] [address] Performing Lab: [address] [address] GLYCOHEMOGLOBIN 6.4 4.4-6.4 Apr 09, 2024 09:50 AM [facility] FERRITIN PLASMA Specimen Type: PLASM A Comment: [...] decrease <15 G5 Kidney failure Ordering Provider: MAYLIN PALMER Report Released Date/Time: Apr 08, 2024 10:18 AM Reporting Lab: [address] [address] Performing Lab: [address] [address] FERRITIN 40.1 ng/mL 21.8-274.7 Apr 09, 2024 09:50 AM [facility] LIPID PROFILE PLASMA Specimen Type: PLASM A [...] decrease <15 G5 Kidney failure Ordering Provider: MAYLIN PALMER Report Released Date/Time: Apr 08, 2024 10:18 AM Reporting Lab: [address] [address] Performing Lab: [address] [address] CHOLESTEROL 155 mg/dL 0-199 TRIGLYCERIDE 252 mg/dL H 0-149 HDL CHOLESTEROL 32 mg/dL L 40-69 DIRECT LDL CHOL. 81 mg/dL 0-100 Apr 09, 2024 09:50 [facility] VIT[facility]IN D SERUM Specime n Type: SERUM Comment: The National Institutes of Health (NIH) recommendations state: <12 ng/mL - Deficient 20 - 50 ng/mL - Optimal Levels - adequate for most people. >50 ng/mL - Increased risk of hypercalciuria/other health problems - clinical correlation is required. These reference ranges represent clinical decision values rather than population-based reference values. Ordering Provider: MAYLIN PALMER Report Released Date/Time: Apr 08, 2024 10:18 AM Reporting Lab: [address] [address] Performing Lab: [address] [address] 25-OH VITAMIN D 41.8 ng/mL 20.0-50.0 Apr 09, 2024 09:50 AM [facility] TSH PLASMA Specimen Type: PLASM A Comment: [...] decrease <15 G5 Kidney failure Ordering Provider: MAYLIN PALMER Report Released Date/Time: Apr 08, 2024 10:18 AM Reporting Lab: [address] [address] Performing Lab: [address] [address] TSH 7.3449 m[IU]/mL H 0.3500-4.9400 Apr 09, 2024 09:50 AM [facility] B12 VITAMIN PLASMA Specimen Type: PLASM A [...] decrease <15 G5 Kidney failure Ordering Provider: MAYLIN PALMER Report Released Date/Time: Apr 08, 2024 10:18 AM Reporting Lab: [address] [address] Performing Lab: [address] [address] B12 VITAMIN 513 pg/mL 213-816 Apr 09, 2024 09:50 AM [facility] MAGNESIUM PLASMA Specimen Type: PLASM A Comment: [...] decrease <15 G5 Kidney failure Ordering Provider: MAYLIN PALMER Report Released Date/Time: Apr 08, 2024 10:18 AM Reporting Lab: [address] [address] Performing Lab: [address] [address] MAGNESIUM 2.0 mg/dL 1.6-2.6 Apr 09, 2024 09:50 AM [facility] PANEL 5 PLASMA Specimen Type: PLASM A [...] decrease <15 G5 Kidney failure Ordering Provider: MAYLIN PALMER Report Released Date/Time: Apr 08, 2024 10:18 AM Reporting Lab: [address] [address] Performing Lab: [address] [address] CREATININE 2.36 mg/dL H 0.72-1.25 UREA NITROGEN [...] Height Weight Body Mass Index Source Apr 15, 2024 11:34 PM 97.8 73 144/80 18 95 0 [place] [facility] Apr 15, 2024 11:18 PM 74 136/58 16 96 [place] [facility] Apr 15, 2024 10:46 PM 98.3 73 124/58 16 97 0 [place] [facility] Apr 15, 2024 07:10 PM 63 119/59 16 97 0 [place] [facility] Apr 15, 2024 06:00 PM 97.7 68 120/44 18 97 0 [facility] Social History: Smoking Status (Most current) and Tobacco Use (All prior to encounter date) This section includes the most current, and the historical, smoking and tobacco- related health factors from the [place] facility where the Encounter took place. Current Smoking Status This section includes the most current smoking, or tobacco-related health factor, from the [place] facility where the Encounter took place. Date/Time Current Smoking Status Comment Facil ity December 08, 2008 06:50 PM V9 QUIT TOBACCO >7 YEARS AGO [facility] Tobacco Use History This section includes a history of the smoking, or tobacco-related health factors, that were collected on or before the date of the Encounter. The data comes from the [place] facility where the Encounter took place. 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 .[address] [place] [address] Sep 19, 2005 02:18 PM HF V9 CURRENT SMOKER SMOKES ABOUT 1/2 PPD [facility] Feb 07, 2005 02:38 PM HF 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 The data comes from all [place] treatment facilities. Date/Time Radiology Report Provider Source Apr 15, 2024 05:07 PM CHEST TWO(2) VIEW PA&LAT: CHELSEY SHELBY [id number] -[id number] M Exm Date: APR 15, 2024@17:07 Req Phys: CARRINGTON GRISSOM Loc: ED/7A-4PM (Req'g Loc) Img Loc: CDD RADIOLOGY Service: [place] [address] (Case [id number] COMPLETE) CHEST TWO(2) VIEW PA&LAT (RAD Detailed) CPT:50745 Reason for Study: possible admission, diarrhea for 5 days , willis. Clinical History: Report Status: Verified Date Reported: APR 15, 2024 Date Verified: APR 15, 2024 Converter Skimmer E-Sig: Report: PA and lateral chest CLINICAL [...] Interpreting Staff: JAMARI GALEANA, RADIOLOGIST Verified by certified retinal angiographer for JAMARI GALEANA /JAMARI ASH [facility] Apr 15, 2024 05:[address] ABD/PELVIS W/O CONT (RENAL STONE PROTOCOL): CHELSEY SHELBY [id number] -1945 M Exm Date: APR 15, 2024@17:00 Req Phys: CARRINGTON GRISSOM Jayde Loc: ED/7A-4PM (Req'g Loc) Img Loc: CT SCAN Service: [place] [address] (Case [id number] COMPLETE) CT ABD/PELVIS W/O CONTRAST (CT Detailed) CPT:12785 Reason for Study: SEE CLINICAL HISTORY Clinical History: 22. Suspected diverticulitis HISTORY/REASON FOR EXAM: patient with WILLIS and diarrhea for 5 days white count about 11. No specifica abdominal pain. Report Status: Verified Date Reported: APR 15, 2024 Date Verified: APR 15, 2024 Converter Skimmer E-Sig: Report: HISTORY SEE CLINICAL [id number]. Suspected diverticulitisHISTORY/REASON FOR EXAM:patient with WILLIS and [...] Staff: ANDREW GARCIA, Staff Physician Verified by certified retinal angiographer for ANDREW GARCIA /ANDREW [facility] Encounter Notes: All associated encounter notes This section contains the clinical notes associated to the Encounter. Date/Time Encounter Note(s) Provider Source Apr 15, 2024 06:22 PM LIFE-SUSTAINING TREATMENT PLAN: LOCAL TITLE: LIFE-SUSTAINING TREATMENT STANDARD TITLE: LIFE-SUSTAINING TREATMENT PLAN DATE OF NOTE: APR 15, 2024@18:22 ENTRY DATE: APR 15, 2024@18:23:08 AUTHOR: EDGARDO GARCIA COSIGNER: CHERYL HURT URGENCY: STATUS: COMPLETED LIFE-SUSTAINING TREATMENT (LST) DECISION-MAKING CAPACITY TO MAKE DECISIONS ABOUT LIFE_SUSTAINING TREATMENTS Patient has capacity to make decisions about LSTs. 'S VALUES AND GOALS OF CARE - Goals as reported by the patient (or surrogate): Patient says he does not want to be rescucitated or intubated LIFE-SUSTAINING TREATMENT PLAN * In the event of cardiopulmonary arrest: DNAR/DNR: Do not attempt CPR. Other Life-Sustaining Treatments: Mechanical Ventilation - In the event of respiratory distress or failure when the patient HAS A PULSE, the patient: Does NOT want invasive mechanical ventilation (e.g., via endotracheal or tracheostomy tube). INFORMED CONSENT Patient gave oral informed consent for life-sustaining treatment plan. PRESENT FOR GOALS OF CARE CONVERSATION Name(s) and contact information: Time spent discussing and documenting this care planning activity. Up to 30 minutes /es/ EDGARDO GARCIA Signed: 04/15/2024 18:27 /arleth/ CHERYL HURT MD Hospitalist Cosigned: 04/16/2024 13:43 EDGARDO GARCIA-D [facility] Apr 15, 2024 06:21 PM INTERNAL MEDICINE H & P NOTE: LOCAL TITLE: MEDICINE INTER/RESIDENT H&P NOTE STANDARD TITLE: INTERNAL MEDICINE H & P NOTE DATE OF NOTE: APR 15, 2024@18:21 ENTRY DATE: APR 15, 2024@18:22:06 AUTHOR: EDGARDO GARCIA COSIGNER: CHERYL HURT URGENCY: STATUS: COMPLETED MEDICINE INTER/RESIDENT H&P NOTE Has ADDENDA CC:Diarrhea HPI: Chelsey Shelby is 78 yo man with PMH significant for CKD3, Afib, DMII, ROWAN, HLD, GERD anxiety/depression here for watery diarrhea. Diarrhea started on 04/11 with approximately 5-8 episodes per day. He also has episodes that wake him up at night. Diarrhea is described as yellow water. He denies any blood in the diarrhea. He denies vomiting. He has had very poor po intake since the diarrhea started. Patient received 2L NS in ED with significant improvement in symptoms. He denies fevers, chills, soa, cp. Patient is enrolled in a clinical trial for medication related to his kidneys/diabetes. It is unclear what this medication is at this time. We will discuss this further with pharmacy. ROS: CONSTITUTIONAL: No fever, chills, weakness, weight loss. EYES: No recent loss of vision, blurred vision, double vision, yellow sclerae. ENMT: No hearing loss, difficulty swallowing, sinus problems. SKIN: No rash, itching, wounds. CARDIOVASCULAR: No chest pain/pressure, palpitations, swelling of feet/ankles. RESPIRATORY: No shortness of breath, cough, hemoptysis, wheezing. GASTROINTESTINAL: No abdominal pain, constipation. GENITOURINARY: No dysuria, hematuria, increased frequency. NEUROLOGICAL: No headache, dizziness, syncope, weakness, numbness/tingling. MUSCULOSKELETAL: No muscle pain, back pain/stiffness, joint pain, joint swelling. HEMATOLOGIC: No swollen lymph nodes, easy bleeding/bruising. ENDOCRINOLOGIC: No excessive thirst, fatigue, cold/heat intolerance. PMH: Active problems - Computerized Problem List is the source for the followin. Paroxysmal atrial fibrillation 2. Long-term current use of anticoagulant 3. Chronic Kidney Disease Stage 3 ([facility] [id number]) 4. Chronic pain 5. Long-term current use of oral hypoglycemic medication 6. Exertional dyspnea 7. Anemia 8. Chronic kidney disease stage 3 due to type 2 diabetes mellitus 9. Acquired trigger finger of left index finger 10. Diabetic neuropathy 11. Jay's Esophagus ([facility] [id number]) repeat due 01/2021 12. Adenomatous polyp of colon many TAs resected January 2018 -- repeat in 1 year (01/2019). TA/HP polyps resected December 2018 -- repeat in 3 years (12/2021). 13. Bilateral hip joint pain 14. Seborrheic dermatitis 15. Dependence on continuous positive airway pressure ventilation 16. Chronic low back pain 17. Anxiety disorder 18. Depressive disorder 19. Lumbar spondylosis with myelopathy (SNOMED CT 65993358) 20. Personal History of Venous Thrombosis and Embolism 21. Obstructive sleep apnea syndrome (SNOMED CT 12075500) 22. Obesity (SNOMED CT 778252320) 23. Mixed hyperlipidemia (SNOMED CT 058353532) 24. Benign hypertensive renal disease Patient has answered NKA MEDS: APIXABAN 5MG TAB Fill Date: APR 16, 2024 Sig: TAKE ONE-HALF TABLET BY MOUTH TWICE A DAY TO THIN BLOOD -CALL ANTICOAGULATION CLINIC [phone] WITH QUESTIONS OR CONCERNS ATORVASTATIN CALCIUM 40MG TAB Fill Date: AUG 01, 2023 Sig: TAKE ONE-HALF TABLET BY MOUTH DAILY FOR CHOLESTEROL CHLORTHALIDONE 25MG TAB Fill Date: FEB 22, 2024 Sig: TAKE ONE TABLET BY MOUTH DAILY FOR BLOOD PRESSURE FLUOXETINE HCL 20MG CAP Fill Date: JUN 24, 2023 Sig: TAKE ONE CAPSULE BY MOUTH DAILY FOR MOOD GABAPENTIN 300MG CAP Fill Date: OCT 08, 2023 Sig: TAKE TWO CAPSULES BY MOUTH TWICE A DAY FOR NERVE PAIN [id number] PENTOXIFYLLINE SA 400MG/PBO Fill Date: MAR 28, 2024 Sig: TAKE ONE TABLET BY MOUTH TWICE A DAY WITH FOOD. SWALLOW WHOLE-DO NOT CHEW, CRUSH OR CUT LISINOPRIL 40MG TAB Fill Date: MAY 29, 2023 Sig: TAKE ONE TABLET BY MOUTH DAILY FOR BLOOD PRESSURE/HEART METFORMIN HCL 500MG TAB Fill Date: APR 04, 2024 Sig: TAKE ONE TABLET BY MOUTH TWICE A DAY FOR DIABETES METOPROLOL TARTRATE 50MG TAB Fill Date: APR 03, 2024 Sig: TAKE ONE-HALF TABLET BY MOUTH TWICE A DAY FOR RAPID HEARTBEAT PANTOPRAZOLE NA 40MG EC TAB Fill Date: JUN 24, 2023 Sig: TAKE ONE TABLET BY MOUTH TWICE A DAY 30 MINUTES BEFORE A MEAL FOR STOMACH, 30 MINUTES BEFORE A MEAL. TAKE ON AN EMPTY STOMACH. SPIRONOLACTONE 25MG TAB Fill Date: MAY 22, 2023 Sig: TAKE ONE TABLET BY MOUTH DAILY FOR BLOOD PRESSURE/HEART FH: Did not review SH: Lives with VITALS: Tc: 97.7 F [36.5 C] (04/15/2024 18:00) HR: 68 (04/15/2024 18:00) RR: 18 (04/15/2024 18:00) BP: 120/44 (04/15/2024 18:00) SpO2: APR 15, 2024@16:00 -- PULSE OXIMETRY: 99 PHYSICAL EXAM GENERAL : lying in bed, appears tired. HEAD/NECK: atraumatic, trachea midline, no LAD. EYES : EOMI, anicteric sclera, PERRL. ENMT : dry mucus membranes w/o lesion, nares patent. CVS : RRR w/ normal S1 and S2. No murmurs/rubs/ gallops; no peripheral edema or JVD. PULM : Normal work of breathing. Lungs CTAB w/o rhonchi/rales/wheezes. GI : +BS x 4, soft, nontender, distended. No rebound/guarding. DERM : no noted rash, bruising, bleeding, wounds. MSK : No joint swelling or deformity. 5/5 strength in bilateral UE and LE. NEURO : CN II-XII grossly intact, AxO x4. 5/5 sensation in bilateral UE and LE. Moves all extremities spontaneously. PSYCH : mood & affect appropriate. No hallucinations. LABS: WBC: 11.3 K/cmm H (04/15/2024 14:41) H HCT: 0 PLT: 0 MCV: 89.9 fL (04/15/2024 14:41) RDW: 13.6 % (04/15/2024 14:41) INR: ____ PTT: ____ SODIUM: 42 mmol/L (04/15/2024 17:53) POTASSIUM: 20.7 mmol/L (04/15/2024 17:53) CHLORIDE: 28 mmol/L (04/15/2024 17:53) CO2: 20 mmol/L L (04/15/2024 14:41) BUN: 41 mg/dL H (04/15/2024 14:41) CREATININE: Collection DT Specimen Test Name Result Units Ref Range 04/15/2024 14:41 PLASMA!! CREATININE 4.52 H mg/dL 0.72 - 1.25 !! Indicates COMMENTS AVAILABLE...Refer to Interim Lab Report. CALCIUM: 8.8 mg/dL (04/15/2024 14:41) ANION GAP: 11.0 mEq/L (04/15/2024 14:41) AST: 21 U/L (04/15/2024 14:41) ALT: 18 U/L (04/15/2024 14:41) ALK PHOS: 60 U/L (04/15/2024 14:41) BILIRUBIN: ALBUMIN: 3.8 g/dL (04/15/2024 14:41) PROTEIN: 7.2 g/dL (04/15/2024 14:41) HgA1C: Collection DT Specimen Test Name Result Units Ref Range 04/15/2024 14:41 BLOOD !! HGB 11.5 L g/dL 14.0 - 18.0 !! Indicates COMMENTS AVAILABLE...Refer to Interim Lab Report. IMAGING: A/P: Chelsey Shelby is 78 yo man with PMH significant for CKD3, Afib, DMII, ROWAN, HLD, GERD anxiety/depression here for watery diarrhea. Patient receiving fluids and is hemodynamically stable at this time. Diarrhea - 5-6 days, 5-8x per day with nightime episodes - poor PO intake - 2L NS in ED Plan: - C diff, ova/parasites, stool culture, stool WBCs - Consider additional fluids in AM WILLIS on CKD3 - Baseline Cr ~ 1.7-1.8 - Cr 4.5 in ED - Likely 2/2 dehydration Plan - Fluids as per above - AM labs - Discuss continuing research trial medication while inptient with pharmacy in AM Chronic conditions DMII - hold metformin Afib - continue apixaban, metoprolol HLD - continue atorvastatin Anxiety/depression - continue fluoxetine GERD - continue pantoprazole Back pain - continue gabapentin FEN/DVT Ppx: F: 2L in ED, PO E: replete prn N: regular DVT Ppx:apixaban Code Status: Full Code Dispo:pending Edgardo Garcia MD PGY-1 Pager: [phone] /es/ EDGARDO GARCIA Signed: 04/15/2024 19:54 /es/ CHERYL HURT MD Hospitalist Cosigned: 04/16/2024 13:43 04/16/2024 ADDENDUM STATUS: COMPLETED Patient seen and examined today on rounds; all pertinent information and all aspects and plans of care were discussed. Please see resident note for details of care, as this supplements the note. 78yo vet presented with profuse watery diarrhea since Sunday, found to have WILLIS. Overnight had several BMs, today just small mucus movement; no f/c/n/v/abd pain; no unusual water sources or travel. vitals reviewed nad, pleasant rrr ctab soft, nd,nt trace pedal edema Cr- 3.29 HCO3 - 18 +lactoferrin WBC 9.5 Cdiff NEG US + granular casts CT Abd/Pelvis - colitis transverse - descending colon # Acute Diarrhea, Presumed Infectious # WILLIS on CKD3b/4 range # hx pAFIB # hx T2DM # hx HTN Non-toxic but continued episodes of diarrhea; not CDI, seems too long for viral or food poisoning, may be bacterial. Watch today and ensure hydrated as renal function has improved. If continues at >= 6/day would consider empiric abx and loperamide. Holding some HTN meds. /es/ CHERYL HURT MD Hospitalist Signed: 04/16/2024 13:51 04/18/2024 ADDENDUM STATUS: COMPLETED additional diagnosis: morbid obesity, BMI 40 /es/ VERONIKA ARGUETA Attending Physician Signed: 04/18/2024 11:57 EDGARDO GARCIA-[facility] Apr 15, 2024 05:30 PM NURSING TRANSFER SUMMARIZATION NOTE: LOCAL TITLE: ED NURSING TRANSFER SBAR STANDARD TITLE: NURSING TRANSFER SUMMARIZATION NOTE DATE OF NOTE: APR 15, 2024@17:30 ENTRY DATE: APR 15, 2024@17:30:14 AUTHOR: PAIGE WARREN COSIGNER: URGENCY: STATUS: COMPLETED ED NURSING TRANSFER SBAR Has ADDENDA Room Number: TBD Situation: Diarrhea and headache x 5 days Reason for admission? Acute Kidney Failure Vital Signs: BLOOD PRESSURE: Measurement DT BP 04/15/2024 17:21 Heart Rate: 64 EKG Rhythm: Sinus rhythm RESPIRATIONS: Measurement DT RESP 04/15/2024 17:21 16 SpO2: Patient on Room Air TEMP: Measurement DT TEMP F(C) 04/15/2024 12:34 97.9(36.6) Pain: 0 Background: Past Medical History: Active problems - Computerized Problem List is the source for the followin. Paroxysmal atrial fibrillation 2. Long-term current use of anticoagulant 3. Chronic Kidney Disease Stage 3 ([facility] 028614493) 4. Chronic pain 5. Long-term current use of oral hypoglycemic medication 6. Exertional dyspnea 7. Anemia 8. Chronic kidney disease stage 3 due to type 2 diabetes mellitus 9. Acquired trigger finger of left index finger 10. Diabetic neuropathy 11. Jay's Esophagus ([facility] 457614404) repeat due 01/2021 12. Adenomatous polyp of colon many TAs resected January 2018 -- repeat in 1 year (01/2019). TA/HP polyps resected December 2018 -- repeat in 3 years (12/2021). 13. Bilateral hip joint pain 14. Seborrheic dermatitis 15. Dependence on continuous positive airway pressure ventilation 16. Chronic low back pain 17. Anxiety disorder 18. Depressive disorder 19. Lumbar spondylosis with myelopathy (SNOMED CT 72709963) 20. Personal History of Venous Thrombosis and Embolism 21. Obstructive sleep apnea syndrome (SNOMED CT 55936677) 22. Obesity (SNOMED CT 111887158) 23. Mixed hyperlipidemia (SNOMED CT 576538289) 24. Benign hypertensive renal disease Allergies: Patient has answered NKA Emergency Department Interventions/Procedures Performed: None Barriers: None Swabs collected: COVID MRSA INFECTION PREVENTION: Patient/authorized libertarian agrees to MRSA nares swab on admission/transfer/discharge; swab obtained. Meds given In ED: NS IV Support Systems: S/O Time SBAR sent: pending bed availability- Report given to Katy Beyer RN Family Concerns/Other Issues: Belongings: Jewelry: watch, ring Clothing: short, shorts, shoes and socks Time of Transfer to the Floor: TBD Family Concerns/Other Issues: None Assessment: Level of Consciousness: Alert Behavior: Calm Orientation: Person Place Time NIH Score: Precautions: None Sepsis screen: Negative Type of IV: Peripheral Location: right AC Guage: 20G Abnormal Labs/ finger sticks: Please see CPRS- Crea >4 Contacted Next of Kin/guardian/responsible libertarian: Yes ==== NATIONAL EARLY WARNING SCORE (NEWS) ==== The vital signs below were used for scoring: Temperature: 97.9 Pulse: 64 Blood Pressure: 141/60 Respiration: 16 Pulse Oximetry: 99 The NEWS total is 0. 1. Temperature (C/F): Score = 0 36.1 - 38.0 C (96.9 - 100.4 F) 2. Pulse: Score = 0 51-90 3. Respirations: Score = 0 12-20 4. Blood Pressure (Only Systolic BP, mmHg): Score = 0 111-219 5. Pulse Oximetry: Score = 0 96% or greater 6. Supplemental oxygen in use: Score = 0 No 7. AVPU: Score = 0 Alert /arleth/ PAIGE WARREN Registered Nurse Signed: 04/15/2024 19:49 04/15/2024 ADDENDUM STATUS: COMPLETED 2229-NEWS score is 0. /arleth/ Katy Allison, MSN,cloth winding supervisor RN Signed: 04/15/2024 22:48 PAIGE WARREN-[facility] Apr 15, 2024 05:04 PM RADIOLOGY EDUCATION NOTE: LOCAL TITLE: Radiology Patient Education STANDARD TITLE: RADIOLOGY EDUCATION NOTE DATE OF NOTE: APR 15, 2024@17:04 ENTRY DATE: APR 15, 2024@17:04:39 AUTHOR: SAMIRA BROWN EXP COSIGNER: URGENCY: STATUS: COMPLETED Time out to ensure correct patient and procedure was performed using the following identifiers: *Select at least TWO identifiers* Full patient name as stated by patient and compared to paper CPRS order., Full SS# as stated by patient and compared to paper CPRS order., Full as stated by patient and compared to paper CPRS order. The Radiology exam to be performed (including whether or not IV contrast was to be used) was confirmed. Yes HAS Please add patient to X-RAY/CT1/NC schedule ct a/p without contrast done /arleth/ SAMIRA BROWN DIAGNOSTIC LINK TRAINER OPERATOR Signed: 04/15/2024 17:05 Receipt Acknowledged By: 04/16/2024 15:32 /arleth/ SINGH BROWN,SAMIRABRIANNE CRISTOBAL-[facility] Apr 15, 2024 04:17 PM EMERGENCY DEPT NOTE: LOCAL TITLE: ED PHYSICIAN/KEY SANDER/PA NOTE STANDARD TITLE: EMERGENCY DEPT NOTE DATE OF NOTE: APR 15, 2024@16:17 ENTRY DATE: APR 15, 2024@16:17:44 AUTHOR: CARRINGTON GRISSOM COSIGNER: URGENCY: STATUS: COMPLETED TIME SEEN: 2pm CHIEF COMPLAINT:Reports diarrhea x 5 days, denies abdominal pain/fever, states Some nausea when it first started, but I never vomited HISTORIAN: [x ] Patient [ ] Spouse [ ] Son [ ] Daughter [ ] Skilled Nursing [ ] EMS [ ] Other: HPI: 78; WHITE; MALE Reports diarrhea x 5 days, denies abdominal pain/fever, states Some nausea when it first started, but I never vomited He stated that he is ahving diarrhea for about 5-6 times a day, waking him at night No melena or hematochezia. No fever or chills. no camping no foreign travel - in general does not have diarrhea. ROS: [ ] Unable to fully assess due to: CONSTITUTIONAL: Fever [ ]Y [ x]N Chills [ ]Y [x ]N Fatigue [ ]Y [ ]N Sweats [ x]Y [ x]N Other: SKIN: Rash [ ]Y [ ]N Bruising [ ]Y [ ]N Other: EYES: Diplopia [ ]Y [ ]N Change in vision [ ]Y [ ]N Other: ENT: Vertigo [ ]Y [ ]N Rhinorrhea [ ]Y [ ]N Sore throat [ ]Y [ ]N Other: RESPIRATORY: Cough [ ]Y [x ]N Short of breath [ ]Y [ ]N Hemoptysis [ ]Y [ ]N Other: CARDIAC: Chest pain [ ]Y [ x]N Palpitations [ ]Y [ ]N Pedal edema [ ]Y [ x]N Other: GASTROINTESTINAL: Nausea [x ]Y [ ]N Vomiting [ ]Y [ x]N Diarrhea [ x]Y [ ]N Abdominal Pain [ ]Y [x ]N Other: GENITOURINARY: Dysuria [ ]Y [ x]N Hematuria [ ]Y [x ]N Frequency [ ]Y [ ]N Other: MUSCULOSKELETAL: Arthralgias [ ]Y [ ]N Myalgias [ ]Y [ ]N Back pain [ ]Y [ ]N Other: ENDOCRINE: Heat/cold intol [ ]Y [ ]N Weight gain/loss [ ]Y [ ]N Other: NEUROLOGIC: Headache [ ]Y [x ]N Dizziness [ ]Y [x ]N Focal weakness [ ]Y [ ]N Incontinence [ ]Y [ ]N Confusion [ ]Y [ ]N Speech difficulty[ ]Y [ ]N Other: PSYCHIATRY: Depression [ ]Y [ x]N SI/HI [ ]Y [x ]N Other: PAST MEDICAL HX: Active problems - Computerized Problem List is the source for the followin. Paroxysmal atrial fibrillation 2. Long-term current use of anticoagulant 3. Chronic Kidney Disease Stage 3 ([facility] 146263013) 4. Chronic pain 5. Long-term current use of oral hypoglycemic medication 6. Exertional dyspnea 7. Anemia 8. Chronic kidney disease stage 3 due to type 2 diabetes mellitus 9. Acquired trigger finger of left index finger 10. Diabetic neuropathy 11. Jay's Esophagus ([facility] 988609457) repeat due 01/2021 12. Adenomatous polyp of colon many TAs resected January 2018 -- repeat in 1 year (01/2019). TA/HP polyps resected December 2018 -- repeat in 3 years (12/2021). 13. Bilateral hip joint pain 14. Seborrheic dermatitis 15. Dependence on continuous positive airway pressure ventilation 16. Chronic low back pain 17. Anxiety disorder 18. Depressive disorder 19. Lumbar spondylosis with myelopathy (SNOMED CT 19995332) 20. Personal History of Venous Thrombosis and Embolism 21. Obstructive sleep apnea syndrome (SNOMED CT 98400307) 22. Obesity (SNOMED CT 847082980) 23. Mixed hyperlipidemia (SNOMED CT 195241610) 24. Benign hypertensive renal disease ALLERGIES: Patient has answered NKA MEDICATION: Active Outpatient Medications (including Supplies): APIXABAN 5MG TAB TAKE ONE-HALF TABLET BY MOUTH TWICE A DAY ACTIVE TO THIN BLOOD -CALL ANTICOAGULATION CLINIC [phone] WITH QUESTIONS OR CONCERNS ATORVASTATIN CALCIUM 40MG TAB TAKE ONE-HALF TABLET BY ACTIVE MOUTH DAILY FOR CHOLESTEROL CHLORTHALIDONE 25MG TAB TAKE ONE TABLET BY MOUTH DAILY FOR ACTIVE BLOOD PRESSURE FLUOXETINE HCL 20MG CAP TAKE ONE CAPSULE BY MOUTH DAILY ACTIVE FOR MOOD GABAPENTIN 300MG CAP TAKE TWO CAPSULES BY MOUTH TWICE A ACTIVE DAY FOR NERVE PAIN [id number] PENTOXIFYLLINE SA 400MG/PBO TAKE ONE TABLET BY [...] BY MOUTH DAILY FOR ACTIVE BLOOD PRESSURE/HEART PERTINENT SURGERY/PROCEDURE: PERTINENT FAMILY HISTORY: PERTINENT SOCIAL HISTORY: PHYSICAL EXAM: VITALS: TEMP: Measurement DT TEMP F(C) 04/15/2024 12:34 97.9(36.6) BLOOD PRESSURE: Measurement DT BP 04/15/2024 12:34 109/68 PULSE: Measurement DT PULSE 04/15/2024 12:34 71 RESPIRATIONS: Measurement DT RESP 04/15/2024 12:34 14 PULSE OX: No data available WEIGHT: No values within 24 hours CONSTITUTIONAL: [x ] Reviewed today's triage vital signs [x ] WD/WN [ ] Obese [ ] NAD [ ] Other: EYES: [ ] Lids and conjunctival normal [ ] PERRLA [ ] Other: ENT: [ ] TM/canal normal [ ] External ear/nose normal [ ] Oropharynx pink/clear [ ] Other: NECK: [x ] Supple [ ] No JVD [ ] Thyroid normal [ ] Other: CARDIOVASCULAR: [ x] RRR w/o murmur [ ] No pedal edema [ ] Pedal pulses normal [ ] Other: RESPIRATORY: [x ] Clear to auscultation [ ] BS equal [ ] Normal respiratory effort [ ] Palpation of chest nontender [ ] Other: GASTROINTESTINAL: [ x] Soft [ x] Nontender [ ] No peritoneal signs [ x] Normal BS [ ] No Hepatosplenomegaly [ ] Other: [ ] Rectal exam: GENITOURINARY: [ ] Other: LYMPHATIC: [ ] No cervical adenopathy [ ] No axillary adenopathy [ ] No inguinal adenopathy [ ] Other: MUSCULOSKELETAL: [ ] Normal range of motion all extremities [ ] No clubbing/cyanosis [ ] Spine nontender [ ] Gait normal [ ] Other: SKIN: [ x] Warm and dry [ x] No rash [ x] Palpation normal [ ] Other: NEUROLOGIC: [x ] Coordination normal [x ] Good strength all extremities [ ] Cranial nerves 2-12 intact [ ] Deep tendon reflexes equal bilaterally [ ] Sensation grossly normal [ ] Other: PSYCHIATRIC: [ x] Alert and oriented x3 [ x] Mood/affect normal [ ] Judgment/insight normal [ ] Recent and remote memory normal [ ] Other: LABS: [ x] Independent interpretation of labs EKG: [ ] Independent interpretation of EKG CXR: [ ] Independent interpretation of x-rays OTHER IMAGING: [ ] Independent interpretation of radiology studies ED COURSE/MEDICAL DECISION MAKING: [ ] Outside records reviewed [ ] I have reviewed relevant medical records, laboratory reports and radiology studies [ ] My findings and treatment plan were discussed with the patient and/or significant other DIFFERENTIAL DIAGNOSIS: diarrhea - large differential also has WILLIS. MEDICAL DECISION MAKING: CONSULTED/DISCUSSED WITH: medical team TIME: 4:53 pm [ ] CRITICAL CARE TIME: [ ] PROCEDURES (see separate procedure note): ASSESSMENT/IMPRESSION: acute on chronic renal insufficiency- diarrhea- unclear cause. PLAN: iv hydration - ordered ct of abdomen so this should be checked. DISPOSITION TIME: [ ] Home [ x] Admitted [ ] Transferred [ ] [place] [ ] [facility] [ ] [facility] [ ] [facility] [ ] [facility] [ ] Other: FOLLOW UP TIME FRAME: [ ] PC [ ] Specialist: [ ] Other: /arleth/ CARRINGTON GRISSOM STAFF PHYSICIAN Signed: 04/15/2024 16:55 CARRINGTON GRISSOM-[facility] Apr 15, 2024 02:40 PM EMERGENCY DEPT NOTE: LOCATION: ED/7A-4PM VISIT DATE: APR 15, 2024@12:23 LOCAL TITLE: EMERGENCY DEPT NURSING ASSESSMENT CHILD ID NOTE STANDARD TITLE: EMERGENCY DEPT NOTE DATE OF NOTE: APR 15, 2024@14:40 ENTRY DATE: APR 15, 2024@14:56:24 AUTHOR: PAIGE WARRENIGNER: URGENCY: STATUS: COMPLETED ASSESSMENT: PAIN: Do you have pain now? No Intensity: N/A Location: N/A How long? N/A PAST MEDICAL HISTORY: Active problems - Computerized Problem List is the source for the followin. Paroxysmal atrial fibrillation 2. Long-term current use of anticoagulant 3. Chronic Kidney Disease Stage 3 (SCT 966661414) 4. Chronic pain 5. Long-term current use of oral hypoglycemic medication 6. Exertional dyspnea 7. Anemia 8. Chronic kidney disease stage 3 due to type 2 diabetes mellitus 9. Acquired trigger finger of left index finger 10. Diabetic neuropathy 11. Jay's Esophagus (SCT 644821114) repeat due 01/2021 12. Adenomatous polyp of colon many TAs resected January 2018 -- repeat in 1 year (01/2019). TA/HP polyps resected December 2018 -- repeat in 3 years (12/2021). 13. Bilateral hip joint pain 14. Seborrheic dermatitis 15. Dependence on continuous positive airway pressure ventilation 16. Chronic low back pain 17. Anxiety disorder 18. Depressive disorder 19. Lumbar spondylosis with myelopathy (SNOMED CT 81631448) 20. Personal History of Venous Thrombosis and Embolism 21. Obstructive sleep apnea syndrome (SNOMED CT 39659444) 22. Obesity (SNOMED CT 701023973) 23. Mixed hyperlipidemia (SNOMED CT 804871596) 24. Benign hypertensive renal disease Transfer Patients If outpatient medication list below is NOT current. See chart/nursing transfer note, provider H&P, or remote data for current list. Medication List Current: YES NON-VA/Herbal Vitamins/Medications: No change in CPRS documentation Medicine/Supplies Qty Last Filled 1) CHLORTHALIDONE 25MG TAB: TAKE ONE TABLET BY MOUTH 60 FEB 22, 2024 DAILY FOR BLOOD PRESSURE 2) METFORMIN HCL 500MG TAB: TAKE ONE TABLET BY MOUTH 60 APR 04, 2024 TWICE A DAY FOR DIABETES 3) FLUOXETINE HCL 20MG CAP: TAKE ONE CAPSULE BY MOUTH 90 JAN 16, 2024 DAILY FOR MOOD 4) LISINOPRIL 40MG TAB: TAKE ONE TABLET BY MOUTH 90 MAR 03, 2024 DAILY FOR BLOOD PRESSURE/HEART 5) PANTOPRAZOLE NA 40MG EC TAB: TAKE ONE TABLET BY 180 JAN 14, 2024 MOUTH TWICE A DAY 30 MINUTES BEFORE A MEAL FOR 6) SPIRONOLACTONE 25MG TAB: TAKE ONE TABLET BY MOUTH 90 FEB 17, 2024 DAILY FOR BLOOD PRESSURE/HEART 7) [id number] PENTOXIFYLLINE SA 400MG/PBO: TAKE ONE 200 MAR 28, 2024 TABLET BY MOUTH TWICE A DAY WITH FOOD. SWALLOW WHOLE-DO NOT 8) METOPROLOL TARTRATE 50MG TAB: TAKE ONE-HALF TABLET 90 APR 03, 2024 BY MOUTH TWICE A DAY FOR RAPID HEARTBEAT 9) ATORVASTATIN CALCIUM 40MG TAB: TAKE ONE-HALF 45 APR 17, 2024 TABLET BY MOUTH DAILY FOR CHOLESTEROL 10) GABAPENTIN 300MG CAP: TAKE TWO CAPSULES BY MOUTH 120 FEB 29, 2024 TWICE A DAY FOR NERVE PAIN 11) APIXABAN 5MG TAB: TAKE ONE-HALF TABLET BY MOUTH 90 APR 16, 2024 TWICE A DAY TO THIN BLOOD -CALL Active Non-VA Meds NONE Reviewed current medications with patient/signficant other, patient/significant other reports patient taking ALL VA, Non VA & OTC medications as listed on CPRS medication tab outpatient section. YES: *Printed copy of medication list provided to patient and reviewed. Yes *Explained to the patient the importance of keeping providers updated on medication changes and to carrying an updated list of medication at all times in case of an emergency situation. Yes ETOH: NO Substance Use: NO LEARNING READINESS: Barriers/Limitations to Learning: No Barriers Interested in Learning About Your Health/Care? Yes, but does not identify a specific education need at present What are you interested in learning? With whom would you like us to share this information? Patient only, Spouse FALL RISK: Have you fallen at home in the last 3 months? No N/A, Cane/Walker FOCUSED ASSESSMENT: NEUROLOGICAL/EYE: Glascow Coma Scale: Eye Opening Response: 4-Spontaneous Motor Response: 6-Obeys Command Verbal Response: 5-Oriented and converses Total EMV= PUPILS: Reactive - SPEECH: Normal RESPIRATORY: Non-labored BREATH SOUNDS: Clear - Bilateral CV/CIRCULATORY: Warm TURGOR: Normal COLOR: Hauser APICAL HEART RATE: Regular ABDOMINAL/GI/: Bowel Sounds: Present WNL Diarrhea INTEGUMENTARY: Intact Medical Devices: ORTHO/TRAUMA/INJURIES/LESIONS : Clinical Observations: N/A Physical evidence of abuse or neglect? No Patient or Other verbally reports current abuse, neglect, or exploitation? No If yes: Provider notified? No If yes: Social service consult? No /arleth/ PAIGE WARREN Registered Nurse Signed: 04/15/2024 14:58 --- Interdisciplinary Note --- << Interdisciplinary Note >> LOCATION: ED/7A-4PM VISIT DATE: APR 15, 2024@12:23 LOCAL TITLE: EMERGENCY DEPT TRIAGE PARENT ID NOTE STANDARD TITLE: EMERGENCY DEPT TRIAGE NOTE DATE OF NOTE: APR 15, 2024@12:33 ENTRY DATE: APR 15, 2024@12:33:25 AUTHOR: MAX REN EXP COSIGNER: URGENCY: STATUS: COMPLETED EMERGENCY DEPT TRIAGE PARENT ID NOTE Has ADDENDA Emergency Department/Urgent Care Center Triage Patient age:78 Sex: MALE On arrival patient was: WHEELCHAIR Patient phone number: Allergies: Patient has answered NKA Subjective/Chief Complaint: Reports diarrhea x 5 days, denies abdominal pain/fever, states Some nausea when it first started, but I never vomited Objective: Denies use of antibiotics recently The patient is not a fall risk. Vital Signs * Temperature 97.9 F (36.6 C) Pulse 71 Respirations 14 Blood Pressure 109/68 Pain scale recorded: 0 Pulse Oximetry 94 Room Air Emergency Severity Index (JANAE) level Level 3 Sepsis Screen: Please check the below that apply to the patient. If 3 or more are positive, sepsis screen will be positive. Does patient have 3 or more of the above? No Current Medications: Active Outpatient Medications (including Supplies): Active Outpatient Medications Status 1) APIXABAN 5MG TAB TAKE ONE-HALF TABLET BY MOUTH TWICE ACTIVE A DAY TO THIN BLOOD -CALL ANTICOAGULATION CLINIC [phone] WITH QUESTIONS OR CONCERNS 2) ATORVASTATIN CALCIUM 40MG TAB TAKE ONE-HALF TABLET BY ACTIVE MOUTH DAILY FOR CHOLESTEROL 3) CHLORTHALIDONE 25MG TAB TAKE ONE TABLET BY MOUTH ACTIVE DAILY FOR BLOOD PRESSURE 4) FLUOXETINE HCL 20MG CAP TAKE ONE CAPSULE BY MOUTH ACTIVE DAILY FOR MOOD 5) GABAPENTIN 300MG CAP TAKE TWO CAPSULES BY MOUTH TWICE ACTIVE A DAY FOR NERVE PAIN 6) [id number] PENTOXIFYLLINE SA 400MG/PBO TAKE ONE ACTIVE TABLET BY MOUTH TWICE A DAY WITH FOOD. SWALLOW WHOLE-DO NOT CHEW, CRUSH OR CUT 7) LISINOPRIL 40MG TAB TAKE ONE TABLET BY MOUTH DAILY ACTIVE FOR BLOOD PRESSURE/HEART 8) METFORMIN HCL 500MG TAB TAKE ONE TABLET BY MOUTH ACTIVE TWICE A DAY FOR DIABETES 9) METOPROLOL TARTRATE 50MG TAB TAKE ONE-HALF TABLET BY ACTIVE MOUTH TWICE A DAY FOR RAPID HEARTBEAT 10) PANTOPRAZOLE NA 40MG EC TAB TAKE ONE TABLET BY MOUTH ACTIVE TWICE A DAY 30 MINUTES BEFORE A MEAL FOR STOMACH, 30 MINUTES BEFORE A MEAL. TAKE ON AN EMPTY STOMACH. 11) SPIRONOLACTONE 25MG TAB TAKE ONE TABLET BY MOUTH ACTIVE DAILY FOR BLOOD PRESSURE/HEART Current Problems: Active problems - Computerized Problem List is the source for the followin. Paroxysmal atrial fibrillation 2. Long-term current use of anticoagulant 3. Chronic Kidney Disease Stage 3 (SCT 034274364) 4. Chronic pain 5. Long-term current use of oral hypoglycemic medication 6. Exertional dyspnea 7. Anemia 8. Chronic kidney disease stage 3 due to type 2 diabetes mellitus 9. Acquired trigger finger of left index finger 10. Diabetic neuropathy 11. Jay's Esophagus (SCT 117739474) repeat due 01/2021 12. Adenomatous polyp of colon many TAs resected January 2018 -- repeat in 1 year (01/2019). TA/HP polyps resected December 2018 -- repeat in 3 years (12/2021). 13. Bilateral hip joint pain 14. Seborrheic dermatitis 15. Dependence on continuous positive airway pressure ventilation 16. Chronic low back pain 17. Anxiety disorder 18. Depressive disorder 19. Lumbar spondylosis with myelopathy (SNOMED CT 23799162) 20. Personal History of Venous Thrombosis and Embolism 21. Obstructive sleep apnea syndrome (SNOMED CT 77044936) 22. Obesity (SNOMED CT 086496171) 23. Mixed hyperlipidemia (SNOMED CT 294665479) 24. Benign hypertensive renal disease Suicide Screen: [place] Suicide Severity Rating Scale (C-SSRS) screener 1. [...] required due to responses to other questions. /arleth/ MAX REN RN core composer machine tender Signed: 04/15/2024 12:35 04/15/2024 ADDENDUM STATUS: UNSIGNED You may not VIEW this UNSIGNED Addendum. << Interdisciplinary Note - Cont. >> LOCAL TITLE: EMERGENCY DEPT NURSING ASSESSMENT CHILD ID NOTE STANDARD TITLE: EMERGENCY DEPT NOTE DATE OF NOTE: APR 15, 2024@14:40 STATUS: COMPLETED ASSESSMENT: PAIN: Do you have pain now? No Intensity: N/A Location: N/A How long? N/A PAST MEDICAL HISTORY: Active problems - Computerized Problem List is the source for the followin. Paroxysmal atrial fibrillation 2. Long-term current use of anticoagulant 3. Chronic Kidney Disease Stage 3 (SCT 634917535) 4. Chronic pain 5. Long-term current use of oral hypoglycemic medication 6. Exertional dyspnea 7. Anemia 8. Chronic kidney disease stage 3 due to type 2 diabetes mellitus 9. Acquired trigger finger of left index finger 10. Diabetic neuropathy 11. Jay's Esophagus (SCT 679661896) repeat due 01/2021 12. Adenomatous polyp of colon many TAs resected January 2018 -- repeat in 1 year (01/2019). TA/HP polyps resected December 2018 -- repeat in 3 years (12/2021). 13. Bilateral hip joint pain 14. Seborrheic dermatitis 15. Dependence on continuous positive airway pressure ventilation 16. Chronic low back pain 17. Anxiety disorder 18. Depressive disorder 19. Lumbar spondylosis with myelopathy (SNOMED CT 18131177) 20. Personal History of Venous Thrombosis and Embolism 21. Obstructive sleep apnea syndrome (SNOMED CT 66814194) 22. Obesity (SNOMED CT 857956697) 23. Mixed hyperlipidemia (SNOMED CT 352253767) 24. Benign hypertensive renal disease Transfer Patients If outpatient medication list below is NOT current. See chart/nursing transfer note, provider H&P, or remote data for current list. Medication List Current: YES NON-VA/Herbal Vitamins/Medications: No change in CPRS documentation Medicine/Supplies Qty Last Filled 1) CHLORTHALIDONE 25MG TAB: TAKE ONE TABLET BY MOUTH 60 FEB 22, 2024 DAILY FOR BLOOD PRESSURE 2) METFORMIN HCL 500MG TAB: TAKE ONE TABLET BY MOUTH 60 APR 04, 2024 TWICE A DAY FOR DIABETES 3) FLUOXETINE HCL 20MG CAP: TAKE ONE CAPSULE BY MOUTH 90 JAN 16, 2024 DAILY FOR MOOD 4) LISINOPRIL 40MG TAB: TAKE ONE TABLET BY MOUTH 90 MAR 03, 2024 DAILY FOR BLOOD PRESSURE/HEART 5) PANTOPRAZOLE NA 40MG EC TAB: TAKE ONE TABLET BY 180 JAN 14, 2024 MOUTH TWICE A DAY 30 MINUTES BEFORE A MEAL FOR 6) SPIRONOLACTONE 25MG TAB: TAKE ONE TABLET BY MOUTH 90 FEB 17, 2024 DAILY FOR BLOOD PRESSURE/HEART 7) [id number] PENTOXIFYLLINE SA 400MG/PBO: TAKE ONE 200 MAR 28, 2024 TABLET BY MOUTH TWICE A DAY WITH FOOD. SWALLOW WHOLE-DO NOT 8) METOPROLOL TARTRATE 50MG TAB: TAKE ONE-HALF TABLET 90 APR 03, 2024 BY MOUTH TWICE A DAY FOR RAPID HEARTBEAT 9) ATORVASTATIN CALCIUM 40MG TAB: TAKE ONE-HALF 45 APR 17, 2024 TABLET BY MOUTH DAILY FOR CHOLESTEROL 10) GABAPENTIN 300MG CAP: TAKE TWO CAPSULES BY MOUTH 120 FEB 29, 2024 TWICE A DAY FOR NERVE PAIN 11) APIXABAN 5MG TAB: TAKE ONE-HALF TABLET BY MOUTH 90 APR 16, 2024 TWICE A DAY TO THIN BLOOD -CALL Active Non-VA Meds NONE Reviewed current medications with patient/signficant other, patient/significant other reports patient taking ALL VA, Non VA & OTC medications as listed on CPRS medication tab outpatient section. YES: *Printed copy of medication list provided to patient and reviewed. Yes *Explained to the patient the importance of keeping providers updated on medication changes and to carrying an updated list of medication at all times in case of an emergency situation. Yes ETOH: NO Substance Use: NO LEARNING READINESS: Barriers/Limitations to Learning: No Barriers Interested in Learning About Your Health/Care? Yes, but does not identify a specific education need at present What are you interested in learning? With whom would you like us to share this information? Patient only, Spouse FALL RISK: Have you fallen at home in the last 3 months? No N/A, Cane/Walker FOCUSED ASSESSMENT: NEUROLOGICAL/EYE: Glascow Coma Scale: Eye Opening Response: 4-Spontaneous Motor Response: 6-Obeys Command Verbal Response: 5-Oriented and converses Total EMV= PUPILS: Reactive - SPEECH: Normal RESPIRATORY: Non-labored BREATH SOUNDS: Clear - Bilateral CV/CIRCULATORY: Warm TURGOR: Normal COLOR: Hauser APICAL HEART RATE: Regular ABDOMINAL/GI/: Bowel Sounds: Present WNL Diarrhea INTEGUMENTARY: Intact Medical Devices: ORTHO/TRAUMA/INJURIES/LESIONS : Clinical Observations: N/A Physical evidence of abuse or neglect? No Patient or Other verbally reports current abuse, neglect, or exploitation? No If yes: Provider notified? No If yes: Social service consult? No /es/ PAIGE WARREN Registered Nurse Signed: 04/15/2024 14:58 PAIGE WARREN-[facility] Apr 15, 2024 12:33 PM EMERGENCY DEPT TRIAGE NOTE: << Interdisciplinary Note >> LOCATION: ED/7A-4PM VISIT DATE: APR 15, 2024@12:23 LOCAL TITLE: EMERGENCY DEPT TRIAGE PARENT ID NOTE STANDARD TITLE: EMERGENCY DEPT TRIAGE NOTE DATE OF NOTE: APR 15, 2024@12:33 ENTRY DATE: APR 15, 2024@12:33:25 AUTHOR: MAX REN EXP COSIGNER: URGENCY: STATUS: COMPLETED EMERGENCY DEPT TRIAGE PARENT ID NOTE Has ADDENDA Emergency Department/Urgent Care Center Triage Patient age:78 Sex: MALE On arrival patient was: WHEELCHAIR Patient phone number: Allergies: Patient has answered NKA Subjective/Chief Complaint: Reports diarrhea x 5 days, denies abdominal pain/fever, states Some nausea when it first started, but I never vomited Objective: Denies use of antibiotics recently The patient is not a fall risk. Vital Signs * Temperature 97.9 F (36.6 C) Pulse 71 Respirations 14 Blood Pressure 109/68 Pain scale recorded: 0 Pulse Oximetry 94 Room Air Emergency Severity Index (JANAE) level Level 3 Sepsis Screen: Please check the below that apply to the patient. If 3 or more are positive, sepsis screen will be positive. Does patient have 3 or more of the above? No Current Medications: Active Outpatient Medications (including Supplies): Active Outpatient Medications Status 1) APIXABAN 5MG TAB TAKE ONE-HALF TABLET BY MOUTH TWICE ACTIVE A DAY TO THIN BLOOD -CALL ANTICOAGULATION CLINIC [phone] WITH QUESTIONS OR CONCERNS 2) ATORVASTATIN CALCIUM 40MG TAB TAKE ONE-HALF TABLET BY ACTIVE MOUTH DAILY FOR CHOLESTEROL 3) CHLORTHALIDONE 25MG TAB TAKE ONE TABLET BY MOUTH ACTIVE DAILY FOR BLOOD PRESSURE 4) FLUOXETINE HCL 20MG CAP TAKE ONE CAPSULE BY MOUTH ACTIVE DAILY FOR MOOD 5) GABAPENTIN 300MG CAP TAKE TWO CAPSULES BY MOUTH TWICE ACTIVE A DAY FOR NERVE PAIN 6) [id number] PENTOXIFYLLINE SA 400MG/PBO TAKE ONE ACTIVE TABLET BY MOUTH TWICE A DAY WITH FOOD. SWALLOW WHOLE-DO NOT CHEW, CRUSH OR CUT 7) LISINOPRIL 40MG TAB TAKE ONE TABLET BY MOUTH DAILY ACTIVE FOR BLOOD PRESSURE/HEART 8) METFORMIN HCL 500MG TAB TAKE ONE TABLET BY MOUTH ACTIVE TWICE A DAY FOR DIABETES 9) METOPROLOL TARTRATE 50MG TAB TAKE ONE-HALF TABLET BY ACTIVE MOUTH TWICE A DAY FOR RAPID HEARTBEAT 10) PANTOPRAZOLE NA 40MG EC TAB TAKE ONE TABLET BY MOUTH ACTIVE TWICE A DAY 30 MINUTES BEFORE A MEAL FOR STOMACH, 30 MINUTES BEFORE A MEAL. TAKE ON AN EMPTY STOMACH. 11) SPIRONOLACTONE 25MG TAB TAKE ONE TABLET BY MOUTH ACTIVE DAILY FOR BLOOD PRESSURE/HEART Current Problems: Active problems - Computerized Problem List is the source for the followin. Paroxysmal atrial fibrillation 2. Long-term current use of anticoagulant 3. Chronic Kidney Disease Stage 3 ([facility] [id number]) 4. Chronic pain 5. Long-term current use of oral hypoglycemic medication 6. Exertional dyspnea 7. Anemia 8. Chronic kidney disease stage 3 due to type 2 diabetes mellitus 9. Acquired trigger finger of left index finger 10. Diabetic neuropathy 11. Jay's Esophagus ([facility] [id number]) repeat due 01/2021 12. Adenomatous polyp of colon many TAs resected January 2018 -- repeat in 1 year (01/2019). TA/HP polyps resected December 2018 -- repeat in 3 years (12/2021). 13. Bilateral hip joint pain 14. Seborrheic dermatitis 15. Dependence on continuous positive airway pressure ventilation 16. Chronic low back pain 17. Anxiety disorder 18. Depressive disorder 19. Lumbar spondylosis with myelopathy (SNOMED CT 07531169) 20. Personal History of Venous Thrombosis and Embolism 21. Obstructive sleep apnea syndrome (SNOMED CT 49070327) 22. Obesity (SNOMED CT 806395000) 23. Mixed hyperlipidemia (SNOMED CT 549030177) 24. Benign hypertensive renal disease Suicide Screen: [place] Suicide Severity Rating Scale (C-SSRS) screener 1. [...] required due to responses to other questions. /arleth/ MAX REN cloth winding supervisor RN Signed: 04/15/2024 12:35 04/15/2024 ADDENDUM STATUS: COMPLETED 14:45- Patient is alert and oriented with spouse at bedside. Patient denies pain at this time. He reports diarrhea for 5 days and headache. Plan of care is explained. IV access is initiated in the right AC, blood sample drawn for labs. Patient is placed on vital signs monitor. Covid swab collected. 14:50- IV fluids started as ordered. 14:55- Blood sample and Covid swab sent to the lab. Warm blanket provided. Call lindsay in easy reach. 16:15- IV fluid bolus infusion is completed. 16:20- Second liter of NS IV bolus is started. Patient is encouraged to provide a urine sample. Updatedof plan of care. Will continue to monitor. 17:00- Patient is taken to CT scan via wheelchair. 17:20- Patient is back from CT scan. EKG obtained showing sinus rhythm with 1st degree AV block. MRSA swab obatained and sent to the lab. 17:45- Second IV fluid IV bolus completed. Patient with urine output of 200 ml, evangelina colored, cloudy. Sample sent to the lab. 18:00- Waiting for bed assignment at this time. 19:40- Report gvien to Katy Allison RN. /arleth/ PAIGE WARREN Registered Nurse Signed: 04/15/2024 19:50 04/15/2024 ADDENDUM STATUS: COMPLETED 1929-Report received from Paige Warren RN, verbalized understanding, assuming patient care at this time. 2009-Patient resting on stretcher, call light within reach, siderail up, assistance offered, updated on plan of care and delays. Patient expresses no needs at this time. A & O x 4. No distress noted. Awaiting clean bed 2044-patient given warm meal. 225-sbar sent floor, confirmed with charge nurse. \ 7-Report called to Diane Mendez RN, verbalized understanding, Preparing patient for transfer to floor. /arleth/ Katy Allison, MSN,cloth winding supervisor RN Signed: 04/15/2024 23:18 << Interdisciplinary Note - Cont. >> LOCAL TITLE: EMERGENCY DEPT NURSING ASSESSMENT CHILD ID NOTE STANDARD TITLE: EMERGENCY DEPT NOTE DATE OF NOTE: APR 15, 2024@14:40 STATUS: COMPLETED ASSESSMENT: PAIN: Do you have pain now? No Intensity: N/A Location: N/A How long? N/A PAST MEDICAL HISTORY: Active problems - Computerized Problem List is the source for the followin. Paroxysmal atrial fibrillation 2. Long-term current use of anticoagulant 3. Chronic Kidney Disease Stage 3 ([facility] [id number]) 4. Chronic pain 5. Long-term current use of oral hypoglycemic medication 6. Exertional dyspnea 7. Anemia 8. Chronic kidney disease stage 3 due to type 2 diabetes mellitus 9. Acquired trigger finger of left index finger 10. Diabetic neuropathy 11. Jay's Esophagus ([facility] [id number]) repeat due 01/2021 12. Adenomatous polyp of colon many TAs resected January 2018 -- repeat in 1 year (01/2019). TA/HP polyps resected December 2018 -- repeat in 3 years (12/2021). 13. Bilateral hip joint pain 14. Seborrheic dermatitis 15. Dependence on continuous positive airway pressure ventilation 16. Chronic low back pain 17. Anxiety disorder 18. Depressive disorder 19. Lumbar spondylosis with myelopathy (SNOMED CT 24061371) 20. Personal History of Venous Thrombosis and Embolism 21. Obstructive sleep apnea syndrome (SNOMED CT 35699017) 22. Obesity (SNOMED CT 039368769) 23. Mixed hyperlipidemia (SNOMED CT 540085126) 24. Benign hypertensive renal disease Transfer Patients If outpatient medication list below is NOT current. See chart/nursing transfer note, provider H&P, or remote data for current list. Medication List Current: YES NON-VA/Herbal Vitamins/Medications: No change in CPRS documentation Medicine/Supplies Qty Last Filled 1) CHLORTHALIDONE 25MG TAB: TAKE ONE TABLET BY MOUTH 60 FEB 22, 2024 DAILY FOR BLOOD PRESSURE 2) METFORMIN HCL 500MG TAB: TAKE ONE TABLET BY MOUTH 60 APR 04, 2024 TWICE A DAY FOR DIABETES 3) FLUOXETINE HCL 20MG CAP: TAKE ONE CAPSULE BY MOUTH 90 JAN 16, 2024 DAILY FOR MOOD 4) LISINOPRIL 40MG TAB: TAKE ONE TABLET BY MOUTH 90 MAR 03, 2024 DAILY FOR BLOOD PRESSURE/HEART 5) PANTOPRAZOLE NA 40MG EC TAB: TAKE ONE TABLET BY 180 JAN 14, 2024 MOUTH TWICE A DAY 30 MINUTES BEFORE A MEAL FOR 6) SPIRONOLACTONE 25MG TAB: TAKE ONE TABLET BY MOUTH 90 FEB 17, 2024 DAILY FOR BLOOD PRESSURE/HEART 7) [id number] PENTOXIFYLLINE SA 400MG/PBO: TAKE ONE 200 MAR 28, 2024 TABLET BY MOUTH TWICE A DAY WITH FOOD. SWALLOW WHOLE-DO NOT 8) METOPROLOL TARTRATE 50MG TAB: TAKE ONE-HALF TABLET 90 APR 03, 2024 BY MOUTH TWICE A DAY FOR RAPID HEARTBEAT 9) ATORVASTATIN CALCIUM 40MG TAB: TAKE ONE-HALF 45 APR 17, 2024 TABLET BY MOUTH DAILY FOR CHOLESTEROL 10) GABAPENTIN 300MG CAP: TAKE TWO CAPSULES BY MOUTH 120 FEB 29, 2024 TWICE A DAY FOR NERVE PAIN 11) APIXABAN 5MG TAB: TAKE ONE-HALF TABLET BY MOUTH 90 APR 16, 2024 TWICE A DAY TO THIN BLOOD -CALL Active Non-VA Meds NONE Reviewed current medications with patient/signficant other, patient/significant other reports patient taking ALL VA, Non VA & OTC medications as listed on CPRS medication tab outpatient section. YES: *Printed copy of medication list provided to patient and reviewed. Yes *Explained to the patient the importance of keeping providers updated on medication changes and to carrying an updated list of medication at all times in case of an emergency situation. Yes ETOH: NO Substance Use: NO LEARNING READINESS: Barriers/Limitations to Learning: No Barriers Interested in Learning About Your Health/Care? Yes, but does not identify a specific education need at present What are you interested in learning? With whom would you like us to share this information? Patient only, Spouse FALL RISK: Have you fallen at home in the last 3 months? No N/A, Cane/Walker FOCUSED ASSESSMENT: NEUROLOGICAL/EYE: Glascow Coma Scale: Eye Opening Response: 4-Spontaneous Motor Response: 6-Obeys Command Verbal Response: 5-Oriented and converses Total EMV= PUPILS: Reactive - SPEECH: Normal RESPIRATORY: Non-labored BREATH SOUNDS: Clear - Bilateral CV/CIRCULATORY: Warm TURGOR: Normal COLOR: Hauser APICAL HEART RATE: Regular ABDOMINAL/GI/: Bowel Sounds: Present WNL Diarrhea INTEGUMENTARY: Intact Medical Devices: ORTHO/TRAUMA/INJURIES/LESIONS : Clinical Observations: N/A Physical evidence of abuse or neglect? No Patient or Other verbally reports current abuse, neglect, or exploitation? No If yes: Provider notified? No If yes: Social service consult? No /arleth/ PAIGE WARREN Registered Nurse Signed: 04/15/2024 14:58 MAX REN-[facility]
--- OUTSIDE RECORDS SUMMARY | 2024-04-15 19:23 | XMS_ITS ---
[facility] Encounter Summary Created on: February 22, 2025 HERON, GIL : 1945 Sex: Male Author Name [employer] [facility] [employer] [place] Organization [employer] [facility] [place] [employer] [place] Address [address] [place] [address] Care Team Providers Care Lightning Rod Erector Name Role Phone ESTELA MAYLIN Primary Care [...] Patient's Relationship to Policy Hart RISSA RODRIGUEZ-[place] NOT [facility] RISSA SHIRLEY Mar 04, 2012 RISSA RODRIGUEZ [id number] HERONNORMA WELLINGTON PATIENT [employer] [facility] ([facility] MEDICARE ADVANTAGE [facility](W NR) Jul 30, 2017 [id number] [phone] HERON,NORMA WELLINGTON PATIENT [facility] MEDICARE ADVANTAGE [facility] (WNR) Jul 30, 2017 [id number] HERON,NORMA WELLINGTON PATIENT [facility] (WN) [facility] ORGANIZ MEDIC ARE BRAULIO Connell Jul 30, 2012 [id number] NORMA SHELBY PATIENT MEDICARE (WNR) MEDICARE (M) PART A Jul 30, 2017 PART A [id number] NORMA SHELBY PATIENT MEDICARE (WNR) MEDICARE (M) PART B Jul 30, 2017 PART B [id number] NORMA SHELBY PATIENT MEDICARE PART D (WNR) PRESCRIPT ION PART D Jul 30, 2017 PART D [id number] NORMA SHELBY PATIENT MEDICARE PART D (WNR) MEDICARE (M) PART D Jul 30, 2017 PART D [id number] NORMA SHELBY PATIENT MEDICARE PART D (WNR) MEDICARE (M) PART D Jul 30, 2017 PART D [id number] NORMA SHELBY PATIENT MEDICARE PART D (WNR) MEDICARE (M) PART D Jul 30, 2012 PART D [id number] NORMA SHELBY PATIENT Selected Encounter This section includes the information on record at [place] for the Encounter. Date/Time Encounter Type Encounter Description Reason Provider Source Apr 15, 2024 11:23 PM Inpatient Visit HOSPITALIZATION ICD-10-CM E78.5 Hyperlipidemia, unspecified CHERYL HURT Encounter Template Text not used by [place] Assessments - Encounter Diagnoses This section includes the primary and secondary diagnoses documented for the Encounter. Date/Time Primary/Secondary Diagnosis Diagnosis Name Provider Source Apr 18, 2024 01:18 PM Diagnosis for Length of Stay Campylobacter enteritis [facility] Apr 18, 2024 01:18 PM SECONDARY Acute kidney failure, unspecified [facility] Apr 18, 2024 01:18 PM SECONDARY Anxiety disorder, unspecified [facility] Apr 18, 2024 01:18 PM SECONDARY Body mass index [BMI] 40.0-44.9, adult [facility] Apr 18, 2024 01:18 PM SECONDARY Chronic kidney disease, stage 4 (severe) [facility] Apr 18, 2024 01:18 PM SECONDARY Depression, unspecified [facility] Apr 18, 2024 01:18 PM SECONDARY Do not resuscitate [facility] Apr 18, 2024 01:18 PM SECONDARY Dorsalgia, unspecified [facility] Apr 18, 2024 01:18 PM SECONDARY Gastro-esophageal reflux disease without esophagitis [facility] Apr 18, 2024 01:18 PM SECONDARY Hyperlipidemia, unspecified [facility] Apr 18, 2024 01:18 PM SECONDARY Hypertensive chronic kidney disease w stg 1-4/unsp chr kdny [facility] Apr 18, 2024 01:18 PM 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 [facility] Apr 18, 2024 01:18 PM SECONDARY care home (current) use of oral hypoglycemic drugs [facility] Apr 18, 2024 01:18 PM SECONDARY Morbid (severe) obesity due to excess calories [facility] Apr 18, 2024 01:18 PM SECONDARY Obstructive sleep apnea (adult) (pediatric) [facility] Apr 18, 2024 01:18 PM SECONDARY Other chronic pain [facility] Apr 18, 2024 01:18 PM SECONDARY Paroxysmal atrial fibrillation [facility] Apr 18, 2024 01:18 PM SECONDARY Type 2 diabetes mellitus w diabetic chronic kidney disease [facility] Plan of Treatment: Future Appointments (+ 6 months) and Future Tests (+/- 45 days) The Plan of Treatment section includes future care activities for the patient from all [facility]. This section includes future appointments and future orders which are active, pending or scheduled. Future Appointments This section includes appointments that were scheduled to occur 6 months from the date of the Encounter, up to a maximum of 20 appointments. The data comes from all [facility]. Appointment Date/Time Appointment Type Appointme nt Facility Name May 05, 2024 02:15 PM AMBULATORY - [facility]ICINE [facility] May 09, 2024 10:30 AM AMBULATORY - MEDICINE [facility] May 20, 2024 11:00 AM AMBULATORY - MEDICINE [facility] Jun 25, 2024 09:45 AM AMBULATORY - MEDICINE [facility] Jul 08, 2024 01:40 PM AMBULATORY - SURGERY [facility] Sep 16, 2024 01:20 PM AMBULATORY - MEDICINE [facility] Active, Pending, and Scheduled Orders This section includes a listing of several types of active, pending, and scheduled orders, including clinic medications orders, diagnostic test orders, procedure orders and consult orders; where the start date of the order is 45 days before the date of the Encounter or 45 days after the date of theEncounter. The data comes from all [place] treatment facilities. Test Date/Time Test Type Test Details Facility Name Apr 15, 2024 02:03 PM Laboratory - Chemi stry Order CBC/PLT [id number] BLOOD STAT WC ONCE [facility] Lab Results: +/- 30 days of the encounter This section includes the Chemistry and Hematology Lab Results on record with [place] for the patient. Radiology Reports and Pathology Reports are provided separately, in subsequent sections. Lab Results This section contains the Chemistry/Hematology Results that were resulted 30 days before or 30 daysafter the date of the Encounter. Date/Time Source Result Type Result - Unit Interpretation Reference Range Specimen Type Comment May 05, 2024 02:08 PM [facility] PANEL 1 PLASMA Specimen Type: PLASMA [...] <15 G5 Kidney failure Ordering Provider: MAYLIN GUTIERREZ Report Released Date/Time: Apr 21, 2024 11:25 AM Reporting Lab: [address] [address] Performing Lab: [address] [address] CREATININE 2.39 mg/dL H 0.72-1.25 UREA NITROGEN 30 mg/dL H 9-25 GLUCOSE 126 mg/dL H 74-100 SODIUM 140 mmol/L 136-145 POTASSIUM 5.0 mmol/L 3.5-5.1 CHLORIDE 110 mmol/L H 98-107 CO2 21 mmol/L L 22-29 CALCIUM 9.9 mg/dL 8.4-10.2 ANION GAP 9 meq/L 3-19 eGFR (CKD-EPI) 27 Apr 18, 2024 11:13 AM [facility] GLUCOSE-HAND MONITOR CAPILLARY Specime n Type: CAPILLARY Comment: Test performed by: [id number] Meter #: [id number] Ordering Provider: CHERYL HURT Report Released Date/Time: Apr 18, 2024 11:44 AM Reporting Lab: [address] [address] Performing Lab: [address] [address] GLUCOSE-HAND MONITOR 110 mg/dL H 71-99 Apr 18, 2024 07:58 AM [facility] PANEL 1 PLASMA Specimen Type: PLASM A [...] Apr 17, 2024 03:26 PM Reporting Lab: [address] [address] Performing Lab: [address] [address] CREATININE 2.05 mg/dL H 0.72-1.25 UREA NITROGEN 28 mg/dL H 9-25 GLUCOSE 177 mg/dL H 74-100 SODIUM 137 mmol/L 136-145 POTASSIUM 4.3 mmol/L 3.5-5.1 CHLORIDE 109 mmol/L H 98-107 CO2 21 mmol/L L 22-29 CALCIUM 8.6 mg/dL 8.4-10.2 ANION GAP 7 meq/L 3-19 eGFR (CKD-EPI) 32 Apr 18, 2024 07:00 AM [facility] GLUCOSE-HAND MONITOR CAPILLARY Specime n Type: CAPILLARY Comment: CARLOS RN notified Test performed by: [id number] Meter #: [id number] Ordering Provider: CHERYL HURT Report Released Date/Time: Apr 18, 2024 07:22 AM Reporting Lab: [address] [address] Performing Lab: [address] [address] GLUCOSE-HAND MONITOR 127 mg/dL H Apr 17, 2024 08:26 PM [facility] GLUCOSE-HAND MONITOR CAPILLARY Specime n Type: CAPILLARY Comment: CARLOS RN notified Test performed by: [id number] Meter #: [id number] Ordering Provider: CHERYL HURT Report Released Date/Time: Apr 17, 2024 09:24 PM Reporting Lab: [address] [address] Performing Lab: [address] [address] GLUCOSE-HAND MONITOR 164 mg/dL H Apr 17, 2024 04:45 PM [facility] GLUCOSE-HAND MONITOR CAPILLARY Specime n Type: CAPILLARY Comment: CARLOS RN notified Test performed by: [id number] Meter #: [id number] Ordering Provider: CHERYL HURT Report Released Date/Time: Apr 17, 2024 05:19 PM Reporting Lab: [address] [address] Performing Lab: [address] [address] GLUCOSE-HAND MONITOR 161 mg/dL H Apr 17, 2024 12:11 PM [facility] GLUCOSE-HAND MONITOR CAPILLARY Specime n Type: CAPILLARY Comment: Test performed by: [id number] Meter #: [id number] Ordering Provider: CHERYL HURT Report Released Date/Time: Apr 17, 2024 12:46 PM Reporting Lab: [facility] [address] [facility] [address] Performing Lab: [facility] [address] [facility] [address] GLUCOSE-HAND MONITOR 116 mg/dL H 71-99 Apr 17, 2024 07:33 AM [facility] PANEL 1 PLASMA Specimen Type: PLASM A [...] Apr 16, 2024 03:40 PM Reporting Lab: [place] [phone] Performing Lab: [place] [phone] CREATININE 2.39 mg/dL H 0.72-1.25 UREA NITROGEN 35 mg/dL H 9-25 GLUCOSE 117 mg/dL H 74-100 SODIUM 138 mmol/L 136-145 POTASSIUM 4.3 mmol/L 3.5-5.1 CHLORIDE 110 mmol/L H 98-107 CO2 22 mmol/L 22-29 CALCIUM 8.7 mg/dL 8.4-10.2 ANION GAP 6 meq/L 3-19 eGFR (CKD-EPI) Apr 17, 2024 07:33 AM [facility] CBC/PLT BLOOD Specimen Type: BLOOD No comment entered. Ordering Provider: EDGARDO GARCIA Report Released Date/Time: Apr 16, 2024 03:40 PM Reporting Lab: [place] [phone] Performing Lab: [place] [phone] WBC 8.8 10*3/uL 5.0-10.0 RBC 4.05 10*6/uL L 4.6-6.2 HGB 11.4 g/dL L 14.0-18.0 HCT 36.1 L 42.0-52.0 MCV 89.1 fL 80.0-94.0 MCH 28.1 pg 27.0-31.0 MCHC 31.6 g/dL L 32.0-36.0 PLT 165 10*3/uL 150-450 MPV 10.4 fL 9.0-13.1 RDW 13.4 11.0-16.0 NRBC 0.0 0.0-0.0 Apr 17, 2024 06:55 AM [facility] GLUCOSE-HAND MONITOR CAPILLARY Specime n Type: CAPILLARY Comment: CARLOS ELLIS notified Test performed by: [id number] Meter #: [id number] Ordering Provider: CHERYL HURT Report Released Date/Time: Apr 17, 2024 07:16 AM Reporting Lab: [place] [phone] Performing Lab: [address] [address] GLUCOSE-HAND MONITOR 125 mg/dL H 71-99 Apr 16, 2024 08:45 PM [facility] GLUCOSE-HAND MONITOR CAPILLARY Specime n Type: CAPILLARY Comment: CARLOS RN notified Test performed by: [id number] Meter #: [id number] Ordering Provider: CHERYL HURT Report Released Date/Time: Apr 16, 2024 10:14 PM Reporting Lab: [address] [address] Performing Lab: [address] [address] GLUCOSE-HAND MONITOR 138 mg/dL H 71-Apr 16, 2024 04:48 PM [facility] GLUCOSE-HAND MONITOR CAPILLARY Specime n Type: CAPILLARY Comment: CARLOS RN notified Test performed by: [id number] Meter #: [id number] Ordering Provider: CHERYL HURT Report Released Date/Time: Apr 16, 2024 05:42 PM Reporting Lab: [address] [address] Performing Lab: [address] [address] GLUCOSE-HAND MONITOR 110 mg/dL H -Apr 16, 2024 12:03 PM [facility] GLUCOSE-HAND MONITOR CAPILLARY Specime n Type: CAPILLARY Comment: CARLOS RN notified Test performed by: [id number] Meter #: [id number] Ordering Provider: CHERYL HURT Report Released Date/Time: Apr 16, 2024 01:01 PM Reporting Lab: [address] [address] Performing Lab: [address] [address] GLUCOSE-HAND MONITOR 126 mg/dL H 71-99 Apr 16, 2024 08:10 AM [facility] CBC/PLT BLOOD Specimen Type: BLOOD No comment entered. Ordering Provider: EDGARDO GARCIA Report Released Date/Time: Apr 15, 2024 11:24 PM Reporting Lab: [address] [address] Performing Lab: [address] [address] WBC 9.5 10*3/uL 5.0-10.0 RBC 4.19 10*6/uL L 4.6-6.2 HGB 11.6 g/dL L 14.0-18.0 HCT 37.0 L 42.0-52.0 MCV 88.3 fL 80.0-94.0 MCH 27.7 pg 27.0-31.0 MCHC 31.4 g/dL L 32.0-36.0 PLT 163 10*3/uL 150-450 MPV 10.4 fL 9.0-13.1 RDW 13.5 11.0-16.0 NRBC 0.0 0.0-0.0 Apr 16, 2024 08:10 AM [facility] PANEL 1 PLASMA Specimen Type: PLASM [...] Apr 15, 2024 11:24 PM Reporting Lab: [address] [address] Performing Lab: [place] [phone] CREATININE 3.29 mg/dL H 0.72-1.25 UREA NITROGEN 40 mg/dL H 9-25 GLUCOSE 151 mg/dL H 74-100 SODIUM 136 mmol/L 136-145 POTASSIUM 3.7 mmol/L 3.5-5.1 CHLORIDE 109 mmol/L H 98-107 CO2 18 mmol/L L 22-29 CALCIUM 8.5 mg/dL 8.4-10.2 ANION GAP 9 meq/L 3-19 eGFR (CKD-EPI) Apr 16, 2024 06:43 AM [facility] GLUCOSE-HAND MONITOR CAPILLARY Specime n Type: CAPILLARY Comment: Test performed by: [id number] Meter #: [id number] Ordering Provider: CHERYL HURT Report Released Date/Time: Apr 16, 2024 07:14 AM Reporting Lab: [address] [address] Performing Lab: [address] [address] GLUCOSE-HAND MONITOR 111 mg/dL H 71-99 Apr 16, 2024 06:00 AM [facility] MRSA SURVL NARES DNA NARES Specime n [...] Apr 15, 2024 11:24 PM Reporting Lab: [address] [address] Performing Lab: [address] [address] MRSA SURVL NARES DNA Negative Negative Apr 15, 2024 11:44 PM [facility] GLUCOSE-HAND MONITOR CAPILLARY Specime n Type: CAPILLARY Comment: Test performed by: [id number] Meter #: [id number] Ordering Provider: CHERYL HURT Report Released Date/Time: Apr 16, 2024 12:31 AM Reporting Lab: [address] [address] Performing Lab: [address] [address] GLUCOSE-HAND MONITOR 149 mg/dL H 71-99 Apr 15, 2024 07:21 PM [facility] OVA AND PARASITE EXAM, GIARDIA (LC) FECES Specimen Type: FECES Comment: No ova, cysts, or parasites seen. . One negative specimen does not rule out the possibility of a parasitic infection. Ordering Provider: CARRINGTON GRISSOM Report Released Date/Time: Apr 15, 2024 06:03 PM Reporting Lab: [address] [address] Performing Lab: [place] [id number] [place] [phone] .OVA & PARASITE EXAM (LC) Comment .GIARDIA EIA (LC) Negative Negative Apr 15, 2024 07:21 PM [facility] C DIFF TOXIN BY PCR/REFLEX TO EIA FECES Specimen Type: FECES Comment: This Cep2Ducheid Xpert C DIFF PCR Assay targets the [...] Apr 15, 2024 06:03 PM Reporting Lab: [place] [phone] Performing Lab: [place] [phone] C DIFF TOX B GENE PCR Negative Negative Apr 15, 2024 07:21 PM [facility] WBC FECES (LACTOFERRIN) FECES Spec imen Type: FECES No comment entered. Ordering Provider: CARRINGTON GRISSOM Report Released Date/Time: Apr 15, 2024 06:03 PM Reporting Lab: [place] [phone] Performing Lab: [place] [phone] WBC FECES (LACTOFERRIN) POSITIVE Negativ e Apr 15, 2024 05:53 PM [facility] URINE LYTES URINE Specimen Type : URINE No comment entered. Ordering Provider: CARRINGTON GRISSOM Report Released Date/Time: Apr 15, 2024 04:12 PM Reporting Lab: [place] [phone] Performing Lab: [place] [phone] SODIUM 42 mmol/L POTASSIUM 20.7 mmol/L CHLORIDE 28 mmol/L Apr 15, 2024 05:53 PM [facility] URINALYSIS URINE Specimen Type : URINE No comment entered. Ordering Provider: CARRINGTON GRISSOM Report Released Date/Time: Apr 15, 2024 02:03 PM Reporting Lab: [place] [phone] Performing Lab: [place] [phone] URINE COLOR Yellow Colorless-Yellow APPEARANCE CLOUDY H [...] H None Apr 15, 2024 05:26 PM [facility] MRSA SURVL NARES DNA NARES Specime n [...] Apr 15, 2024 04:28 PM Reporting Lab: [address] [address] Performing Lab: [address] [address] MRSA SURVL NARES DNA Negative Negative Apr 15, 2024 02:41 PM [facility] LACTIC ACID PLASMA Specimen Type : PLASMA No comment entered. Ordering Provider: CARRINGTON GRISSOM Report Released Date/Time: Apr 15, 2024 02:03 PM Reporting Lab: [address] [address] Performing Lab: [address] [address] LACTIC ACID 1.4 mmol/L 0.5-2.2 Apr 15, 2024 02:41 PM [facility] LIPASE PLASMA Specimen Type: PLASM A Comment: [...] Apr 15, 2024 02:03 PM Reporting Lab: [address] [address] Performing Lab: [address] [address] LIPASE 11 U/L 878 Apr 15, 2024 02:41 PM [facility] PANEL 2 PLASMA Specimen Type: PLASM A [...] Apr 15, 2024 02:03 PM Reporting Lab: [address] [address] Performing Lab: [address] [address] TOTAL PROTEIN 7.2 g/dL 6.4-8.3 ALBUMIN 3.8 g/dL 3.5-5.2 TOTAL BILIRUBIN 0.6 mg/dL 0.2-1.2 AST 21 U/L 5-34 ALT 18 U/L 0-55 ALK PHOS 60 U/L 40-150 BILIRUBIN-DIRECT 0.2 mg/dL 0.0-0.5 Apr 15, 2024 02:41 PM [facility] CBC/PLT BLOOD Specimen Type: BLOOD Comment: ~STAT Ordering Provider: CARRINGTON GRISSOM Report Released Date/Time: Apr 15, 2024 02:03 PM Reporting Lab: [facility] [address] [place] [address] Performing Lab: [address] [address] WBC 11.3 10*3/uL H 5.0-10.0 RBC 4.04 10*6/uL L 4.6-6.2 HGB 11.5 g/dL L 14.0-18.0 HCT 36.3 L 42.0-52.0 MCV 89.9 fL 80.0-94.0 MCH 28.5 pg 27.0-31.0 MCHC 31.7 g/dL L 32.0-36.0 PLT 166 10*3/uL 150-450 MPV 10.6 fL 9.0-13.1 RDW 13.6 11.0-16.0 NRBC 0.0 0.0-0.0 Apr 15, 2024 02:41 PM [facility] PANEL 1 PLASMA Specimen Type: PLASM A [...] Apr 15, 2024 02:03 PM Reporting Lab: [address] [address] Performing Lab: [address] [address] CREATININE 4.52 mg/dL H 0.72-1.25 UREA NITROGEN 41 mg/dL H 9-25 GLUCOSE 110 mg/dL H 74-100 SODIUM 135 mmol/L L 136-145 POTASSIUM 3.9 mmol/L 3.5-5.1 CHLORIDE 104 mmol/L 98-107 CO2 20 mmol/L L 22-29 CALCIUM 8.8 mg/dL 8.4-10.2 ANION GAP 11 meq/L 3-19 eGFR (CKD-EPI) 12 Apr 15, 2024 02:41 PM [facility] COVID-19 AND FLU/RSV DIAGNOSTIC PANEL NASOPH ARYNX [...] Food and Drug Administration's Emergency Use Authorization. [employer] Gen[employer]pert (596) Ordering Provider: CARRINGTON GRISSOM Report Released Date/Time: Apr 15, 2024 02:03 PM Reporting Lab: [address] [address] Performing Lab: [address] [address] COVID-19 PCR (FLUVID) Negative Negative FLU A PCR (FLUVID) Negative Negative FLU B PCR (FLUVID) Negative Negative RSV PCR (FLUVID) Negative Negative Apr 15, 2024 02:41 PM [facility] PROCALCITONIN-[facility] PLASMA Specimen Type: PLASM A Comment: [...] Apr 15, 2024 02:03 PM Reporting Lab: [address] [address] Performing Lab: [address] [address] PROCALCITONIN-[facility] 0.91 ng/mL H 0.00-0.50 Apr 15, 2024 02:41 PM [facility] AUTOMATED DIFF BLOOD Specimen Type : BLOOD Comment: ~STAT Ordering Provider: CARRINGTON GRISSOM Report Released Date/Time: Apr 15, 2024 02:03 PM Reporting Lab: [address] [address] Performing Lab: [address] [address] A-LYMPH % 21.9 L 24.0-44.0 A-MONO % 14.9 H 0.1-6.0 A-GRAN % 58.9 42.0-75.0 A-LYMPH # 2.47 10*3/uL 1.20-3.40 A-MONO # 1.68 10*3/uL H 0.00-0.60 A-GRAN # 6.63 10*3/uL H 1.40-6.50 A-BASO % 0.3 0.0-3.0 A-BASO # 0.03 10*3/uL 0.00-0.20 A-EOS % 3.7 0.0-10.0 A-EOS # 0.42 10*3/uL 0.00-0.70 A-IG % 0.3 0.0-0.5 A-IG # 0.03 10*3/uL 0.00-0.06 Apr 09, 2024 09:58 AM [facility] DRUG SCREEN IN-HOUSE ROUTINE URINE Specimen Type: URINE Comment: Screening method results are unconfirmed and are for medical use only. Unconfirmed screening results must not be used for non-medical purposes. Opiates test most sensitive for morphine, codeine and heroin and less sensitive for hydrocodone and hydromorphone where higher concentrations are needed for cut-off detection. Ordering Provider: MAYLIN GUTIERREZ Report Released Date/Time: Apr 08, 2024 10:18 AM Reporting Lab: [place] [phone] Performing Lab: [place] [phone] TETRAHYDROCANNABINOL SCREEN NEG AMPHETAMINE SCR NEG BARBITURATES SCR NEG BENZODIAZEPINES SCR NEG COCAINE METABOLITE SCR NEG OPIATES SCR NEG METHADONE SCR NEG OXYCODONE SCR NEG Apr 09, 2024 09:58 AM [facility] MICROALBUMIN/CREAT RATIO URINE Specimen Type: URINE No comment entered. Ordering Provider: MAYLIN GUTIERREZ Report Released Date/Time: Apr 08, 2024 10:18 AM Reporting Lab: [place] [phone] Performing Lab: [place] [phone] CREATININE 116.7 mg/dL MICROALBUMIN QUANT 80.2 mg/L H 0.0-30.0 .MICROALBUMIN/CREA RATIO 68.7 ug/mg{creat} Apr 09, 2024 09:50 AM [facility] CBC/PLT BLOOD Specimen Type: BLOOD No comment entered. Ordering Provider: CAMILO MAYERS Report Released Date/Time: Apr 03, 2024 03:39 PM Reporting Lab: [address] [address] Performing Lab: [place] [phone] WBC 13.1 10*3/uL H 5.0-10.0 RBC 4.41 10*6/uL L 4.6-6.2 HGB 12.5 g/dL L 14.0-18.0 HCT 40.2 L 42.0-52.0 MCV 91.2 fL 80.0-94.0 MCH 28.3 pg 27.0-31.0 MCHC 31.1 g/dL L 32.0-36.0 PLT 191 10*3/uL 150-450 MPV 10.8 fL 9.0-13.1 RDW 13.2 11.0-16.0 NRBC 0.0 0.0-0.0 Apr 09, 2024 09:50 AM [facility] AUTOMATED DIFF BLOOD Specimen Type: BLOOD No comment entered. Ordering Provider: CAMILO MAYERS Report Released Date/Time: Apr 03, 2024 03:39 PM Reporting Lab: [address] [address] Performing Lab: [address] [address] A-LYMPH % 27.0 24.0-44.0 A-MONO % 9.7 [...] 10*3/uL 0.00-0.06 Apr 09, 2024 09:50 AM [facility] FERRITIN PLASMA Specimen Type: PLASM A Comment: [...] <15 G5 Kidney failure Ordering Provider: MAYLIN GUTIERREZ Report Released Date/Time: Apr 08, 2024 10:18 AM Reporting Lab: [address] [address] Performing Lab: [address] [address] FERRITIN 40.1 ng/mL 21.8-274.7 Apr 09, 2024 09:50 AM [facility] LIPID PROFILE PLASMA Specimen Type: PLASM [...] <15 G5 Kidney failure Ordering Provider: MAYLIN GUTIERREZ Report Released Date/Time: Apr 08, 2024 10:18 AM Reporting Lab: [address] [address] Performing Lab: [address] [address] CHOLESTEROL 155 mg/dL 0-199 TRIGLYCERIDE 252 mg/dL H 0-149 HDL CHOLESTEROL 32 mg/dL L 40-69 DIRECT LDL CHOL. 81 mg/dL 0-100 Apr 09, 2024 09:50 AM [facility] GLYCOHEMOGLOBIN BLOOD Specimen Type: BLOOD Comment: [facility] guidelines for A1c interpretation: Glycemic control targets are based on Shared Decision Making between clinicians and patients. Criteria used to establish an A1c target recommendation can be found at https://www.[place].gov/qualityandpatientsafety/ and include the use of result accuracy [...] 8.73 and 9.27. Ref: https://ngsp.org/CAPdata.asp. The in-house [employer] D-100 analyzer has a historical CV <= 2%. Contact the laboratory for further performance characteristics of this assay. Ordering Provider: MAYLIN GUTIERREZ Report Released Date/Time: Apr 08, 2024 10:18 AM Reporting Lab: [address] [address] Performing Lab: [address] [address] GLYCOHEMOGLOBIN 6.4 4.4-6.4 Apr 09, 2024 09:50 AM [facility] 25-OH VITAMIN D SERUM Specime n Type: SERUM Comment: The National Institutes of Health (NIH) recommendations state: <12 ng/mL - Deficient 20 - 50 ng/mL - Optimal Levels - adequate for most people. >50 ng/mL - Increased risk of hypercalciuria/other health problems - clinical correlation is required. These reference ranges represent clinical decision values rather than population-based reference values. Ordering Provider: MAYLIN GUTIERREZ Report Released Date/Time: Apr 08, 2024 10:18 AM Reporting Lab: [address] [address] Performing Lab: [address] [address] 25-OH VITAMIN D 41.8 ng/mL 20.0-50.0 Apr 09, 2024 09:50 AM [facility] B12 VITAMIN PLASMA Specimen Type: PLASM A [...] <15 G5 Kidney failure Ordering Provider: MAYLIN GUTIERREZ Report Released Date/Time: Apr 08, 2024 10:18 AM Reporting Lab: [address] [address] Performing Lab: [address] [place] [address] B12 VITAMIN 513 pg/mL 213-816 Apr 09, 2024 09:50 AM [facility] Specimen Type: PLASM A [...] <15 G5 Kidney failure Ordering Provider: MAYLIN GUTIERREZ Report Released Date/Time: Apr 08, 2024 10:18 AM Reporting Lab: [address] [id number] Performing Lab: [address] [address] TSH 7.3449 m[IU]/mL H 0.3500-4.9400 Apr 09, 2024 09:50 AM [facility] MAGNESIUM PLASMA Specimen Type: PLASM A Comment: [...] <15 G5 Kidney failure Ordering Provider: MAYLIN GUTIERREZ Report Released Date/Time: Apr 08, 2024 10:18 AM Reporting Lab: [facility] [address] [facility] [id number] Performing Lab: [facility] [address] [facility] [address] MAGNESIUM 2.0 mg/dL 1.6-2.6 Apr 09, 2024 09:50 AM [facility] PANEL 5 PLASMA Specimen Type: PLASM A [...] <15 G5 Kidney failure Ordering Provider: MAYLIN GUTIERREZ Report Released Date/Time: Apr 08, 2024 10:18 AM Reporting Lab: [facility] [address] [facility] [id number] Performing Lab: [address] [address] CREATININE 2.36 mg/dL H 0.72-1.25 UREA NITROGEN [...] 73 144/80 18 95 0 [place] Apr 15, 2024 11:18 PM 74 136/58 16 96 [place] Apr 15, 2024 10:46 PM 98.3 73 124/58 16 97 0 [place] Apr 15, 2024 07:10 PM 63 119/59 16 97 0 [place] Apr 15, 2024 06:00 PM 97.7 68 120/44 18 97 0 [place] [facility] Social History: Smoking Status (Most current) and Tobacco Use (All prior to encounter date) This section includes the most current, and the historical, smoking and tobacco- related health factors from the [place] facility where the Encounter took place. Current Smoking Status This section includes the most current smoking, or tobacco-related health factor, from the [place] facility where the Encounter took place. Date/Time Current Smoking Status Comment Facil ity December 08, 2008 06:50 PM V9 QUIT TOBACCO >7 YEARS AGO [facility] Tobacco Use History This section includes a history of the smoking, or tobacco-related health factors, that were collected on or before the date of the Encounter. The data comes from the [place] facility where the Encounter took place. 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 .[address] [place] [address] Sep 19, 2005 02:18 PM HF V9 CURRENT SMOKER SMOKES ABOUT 1/2 PPD [facility] Feb 07, 2005 02:38 PM HF 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 The data comes from all [place] treatment facilities. Date/Time Radiology Report Provider Source Apr 15, 2024 05:07 PM CHEST TWO(2) VIEW PA&LAT: GIL SHELBY [id number] M Exm Date: APR 15, 2024@17:07 Req Phys: CARRINGTON GRISSOM Pat Loc: ED/7A-4PM (Req'g Loc) Img Loc: CDD RADIOLOGY Service: [place] [address] (Case [id number] COMPLETE) CHEST TWO(2) VIEW PA&LAT (RAD Detailed) CPT:75099 Reason for Study: possible admission, diarrhea for 5 days , herve. Clinical History: Report Status: Verified Date Reported: APR 15, 2024 Date Verified: APR 15, 2024 Net Manager E-Sig: Report: PA and lateral chest CLINICAL [...] Interpreting Staff: JAMARI GALEANA, RADIOLOGIST Verified by trimmer buffing wheel for JAMARI GALEANA /JAMARI [facility] Apr 15, 2024 05:[address] ABD/PELVIS W/O CONT (RENAL STONE PROTOCOL): GIL SHELBY [id number] -[id number] M Exm Date: APR 15, 2024@17:00 Req Phys: CARRINGTON GRISSOM Pat Loc: ED/7A-4PM (Req'g Loc) Img Loc: CT SCAN Service: [place] [address] (Case [id number] COMPLETE) CT ABD/PELVIS W/O CONTRAST (CT Detailed) CPT:30901 Reason for Study: SEE CLINICAL HISTORY Clinical History: 22. Suspected diverticulitis HISTORY/REASON FOR EXAM: patient with HERVE and diarrhea for 5 days white count about 11. No specifica abdominal pain. Report Status: Verified Date Reported: APR 15, 2024 Date Verified: APR 15, 2024 Net Manager E-Sig: Report: HISTORY SEE CLINICAL [id number]. Suspected diverticulitisHISTORY/REASON FOR EXAM:patient with HERVE and diarrhea for 5 days white count [...] Staff: ANDREW GARCIA, Staff Physician Verified by trimmer buffing wheel for ANDREW GARCIA /[facility] Encounter Notes: All associated encounter notes This section contains the clinical notes associated to the Encounter. Date/Time Encounter Note(s) Provider Source Apr 18, 2024 02:24 PM NURSING DISCHARGE NOTE: LOCAL TITLE: NURSING DISCHARGE NOTE STANDARD TITLE: NURSING DISCHARGE NOTE DATE OF NOTE: APR 18, 2024@14:24 ENTRY DATE: APR 18, 2024@14:24:47 AUTHOR: AUDREY MIXON EXP COSIGNER: URGENCY: STATUS: COMPLETED Health status at discharge remains unchanged from last reassessment. Vital signs within the last 30 minutes of patient leaving the floor: Temp: 97.6 Pulse: 65 Resp: 18 B/P: 164/74 O2: 94 IV Catheter Present: 20 gauge Right arm IV site discontinued to:Discontinued for discharge Have the patient's belongings been given to the patient or family member? Yes Time patient left:13:18 Patient wristband was removed and destroyed in a shred box. Patient left:Wheelchair Patient left with:Friend /arleth/ Audrey Mixon, district plant supervisor RN Signed: 04/18/2024 14:25 AUDREY MIXON [facility] Apr 18, 2024 01:18 PM DISCHARGE SUMMARY: LOCAL TITLE: Discharge Summary STANDARD TITLE: DISCHARGE SUMMARY DICT DATE: APR 18, 2024@15:37 ENTRY DATE: APR 18, 2024@15:37:39 DICTATED BY: NICOLLE PRATT ATTENDING: DOMENICO STILL URGENCY: routine STATUS: COMPLETED Admit: Mar Discharge: Mar Attending: Domenico Still MD Discharge Diagnosis: Campylobacter jejuni enteritis, HERVE Problem List: Active problems - Computerized Problem List is the source for the followin. Paroxysmal atrial fibrillation 2. Long-term current use of anticoagulant 3. Chronic Kidney Disease Stage 3 ([facility] [id number]) 4. Chronic pain 5. Long-term current use of oral hypoglycemic medication 6. Exertional dyspnea 7. Anemia 8. Chronic kidney disease stage 3 due to type 2 diabetes mellitus 9. Acquired trigger finger of left index finger 10. Diabetic neuropathy 11. Jay's Esophagus (SCT [id number]) repeat due 01/2021 12. Adenomatous polyp of [...] 19. Lumbar spondylosis with myelopathy (SNOMED CT 20625364) 20. Personal History of Venous Thrombosis and Embolism 21. Obstructive sleep apnea syndrome (SNOMED CT 04690031) 22. Obesity (SNOMED CT 766998251) 23. Mixed hyperlipidemia (SNOMED CT 460733055) 24. Benign hypertensive renal disease Medications: BEGIN 'OUTPATIENT MEDICATIONS AT DISCHARGE' FROM 04/18/24 11:40 ENTERED BY: AKI LOZOYA The following are current [facility] outpatient medications for Mr. GIL SHELBY at the time of hospital discharge. (This list includes ACTIVE, PENDING, HOLD, and NON-VA medications.) ACCU-CHEK GUIDE (GLUCOSE) TEST STRIP USE 1 STRIP TO TEST PENDING BLOOD SUGAR DIRECTED # Refills: Quantity: 50 Issue Date: Provider: APIXABAN 5MG TAB TAKE ONE-HALF TABLET BY MOUTH TWICE A DAY ACTIVE TO THIN BLOOD -CALL ANTICOAGULATION CLINIC [phone] WITH QUESTIONS OR CONCERNS # Refills: 3 Quantity: 90 Issue Date: Apr 10, 2024 Provider: CAMILO MAYERS ATORVASTATIN CALCIUM 40MG TAB TAKE ONE-HALF TABLET BY ACTIVE MOUTH DAILY FOR CHOLESTEROL # Refills: 0 Quantity: 45 Issue Date: Jul 25, 2023 Provider: LON SCHMIDT CHLORTHALIDONE 25MG TAB TAKE ONE TABLET BY MOUTH DAILY FOR ACTIVE BLOOD PRESSURE # Refills: 0 Quantity: 60 Issue Date: Feb 21, 2024 Provider: MAYLIN GUTIERREZ FLUOXETINE HCL 20MG CAP TAKE ONE CAPSULE BY MOUTH DAILY ACTIVE FOR MOOD # Refills: 0 Quantity: 90 Issue Date: May 21, 2023 Provider: MAYLIN GUTIERREZ GABAPENTIN 300MG CAP TAKE TWO CAPSULES BY MOUTH TWICE A ACTIVE DAY FOR NERVE PAIN # Refills: 0 Quantity: 120 Issue Date: Oct 08, 2023 Provider: MAYLIN GUTIERREZ [id number] PENTOXIFYLLINE SA 400MG/PBO TAKE ONE TABLET BY ACTIVE MOUTH TWICE A DAY WITH FOOD. SWALLOW WHOLE-DO NOT CHEW, CRUSH OR CUT # Refills: 0 Quantity: 200 Issue Date: Mar 27, 2024 Provider: ISELA ASH LANCET,SOFTCLIX USE LANCET AFFECTED AREA DIRECTED PENDING # Refills: Quantity: 100 Issue Date: Provider: LISINOPRIL 40MG TAB TAKE ONE TABLET BY MOUTH DAILY FOR ACTIVE BLOOD PRESSURE/HEART # Refills: 0 Quantity: 90 Issue Date: May 21, 2023 Provider: MAYLIN GUTIERREZ METFORMIN HCL 500MG TAB TAKE ONE TABLET BY MOUTH TWICE A ACTIVE DAY FOR DIABETES # Refills: 0 Quantity: 60 Issue Date: Apr 04, 2024 Provider: MAYLIN GUTIERREZ METOPROLOL TARTRATE 50MG TAB TAKE ONE-HALF TABLET BY MOUTH ACTIVE TWICE A DAY FOR RAPID HEARTBEAT # Refills: 0 Quantity: 90 Issue Date: Apr 01, 2024 Provider: MAYLIN GUTIERREZ PANTOPRAZOLE NA 40MG EC TAB TAKE ONE TABLET BY MOUTH TWICE ACTIVE A DAY 30 MINUTES BEFORE A MEAL FOR STOMACH, 30 MINUTES BEFORE A MEAL. TAKE ON AN EMPTY STOMACH. # Refills: 0 Quantity: 180 Issue Date: May 21, 2023 Provider: MAYLIN GUTIERREZ SPIRONOLACTONE 25MG TAB TAKE ONE TABLET BY MOUTH DAILY FOR ACTIVE BLOOD PRESSURE/HEART # Refills: 0 Quantity: 90 Issue Date: May 21, 2023 Provider: MAYLIN GUTIERREZ REMOTE OUTPATIENT MEDICATIONS: The following are active REMOTE medications dispensed from other [place] Medical Facilities for Mr. GIL SHELBY. No Active Remote Medications for this patient END 'OUTPATIENT MEDICATIONS AT DISCHARGE' FROM 04/18/24 11:40 Hospital Course: Gil Shelby is 78 yo man with PMH significant for CKD3, Afib, DMII, ROWAN, HLD, GERD anxiety/depression here for watery diarrhea likely due to campylobacter jejuni infection as well as HERVE. Watery diarrhea likely due to campylobacter jejuni infection - presented with 5-6 days watery diarrhea, 5-8x per day with nightime episodes - stool culture positive for campylobacter jejuni. C. Diff negative. - provided supportive care; diarrhea was improving on day of discharge and patient was abulating without dizziness, tolerating PO HERVE on CKD3 (improved) - Baseline Cr ~1.8-2.0. Cr 4.5 on admission. - Likely 2/2 dehydration ISO watery diarrhea - 2.05 and trending down on day of discharge, patient was able to stay hydrated with PO fluids Chronic conditions DMII - held metformin Afib - continued apixaban, metoprolol HLD - continued atorvastatin Anxiety/depression - continued fluoxetine GERD - continued pantoprazole Back pain - continued gabapentin PCP issues to follow up: HERVE Medication changes & reasoning: none Pending results: none Consults: none Operations/procedures: none Discharge Disposition: home with friend /arleth/ NICOLLE PRATT RESIDENT Signed: 04/18/2024 15:45 /arleth/ DOMENICO STILL Attending Physician Cosigned: 04/23/2024 14:04 NICOLLE PRATT-CD[facility] Apr 18, 2024 12:56 PM ADDENDUM: LOCAL TITLE: Addendum STANDARD TITLE: ADDENDUM DATE OF NOTE: APR 18, 2024@12:56:59 ENTRY DATE: APR 18, 2024@12:56:59 AUTHOR: MAYLIN GUTIERREZ EXP COSIGNER: URGENCY: STATUS: COMPLETED pt does NOT need PC appt for f/u of GI bug, p1 alone within 2 weeks is okay unless pt needing to see us per his request. /arelth/ Maylin Gutierrez MD Primary Care Attending Signed: 04/18/2024 12:57 Receipt Acknowledged By: 04/25/2024 10:45 /arleth/ ROMMEL YAÑEZ Advanced Outside Machinist 04/21/2024 11:25 /es/ Raheem Weston,medical staff physician RN --- Original Document --- 04/18/24 DISCHARGE DAY PROGRESS NOTE: THE PERSON RESPONSIBLE FOR DICTATING/ENTERING THE DISCHARGE SUMMARY ON THIS PATIENT IS: Nicolle Pratt FINAL DIAGNOSES: Campylobacter jejuni gastroenteritis, HERVE PROCEDURES: None. PLAN FOR FOLLOW UP: PCP within 1 week. PENDING DIAGNOSTIC TESTING AT DISCHARGE: None. DIET: Heart Healthy (Cardiac)/Regular ACTIVITY: As tolerated. WOUND CARE (Includes Pressure Ulcers): None. SUBJECTIVE: Mr. Shelby reports diarrhea has slowed down. He had one semi- formed bowel movement this morning. He is walking without dizziness and tolerating PO. DISCHARGE EXAM: GENERAL : lying in bed, in NAD. HEENT: anicteric sclera, moist mucus membranes. CVS : RRR w/ normal S1 and S2. No murmurs/rubs/ gallops. PULM : Normal work of breathing. Lungs CTAB w/o rhonchi/rales/wheezes. GI : +BS, soft, nontender, nondistended. DERM : no noted rash, bruising, bleeding, wounds. MSK : No joint swelling or deformity. Neuro: alert. PSYCH : mood & affect appropriate. VITALS: BP: 169/76 (04/18/2024 11:12) Pulse: 60 (04/18/2024 11:12) Wt: 317.4 lb [143.97 kg] (04/09/2024 10:51) LAB DATA: PANEL 1 [id number] LC ONCE LB #[id number] Collection time: Apr 18, 2024@05:00 Test Name Result Units Range --------- ------ ----- ----- SODIUM 137 mmol/L 136 - 145 POTASSIUM 4.3 mmol/L 3.5 - 5.1 CHLORIDE 109 H mmol/L 98 - 107 CO2 21 L mmol/L 22 - 29 ANION GAP 7.0 mEq/L 3 - 19 GLUCOSE 177 H mg/dL 74 - 100 UREA NITROGEN 28 H mg/dL 9 - 25 CREATININE 2.05 H mg/dL 0.72 - 1.25 eGFR (CKD-EPI) 32 SEE EVAL CALCIUM 8.6 mg/dL 8.4 - 10.2 MEDICATION ADJUSTMENTS AND REASON: None. NEW MEDICATIONS AND REASON: None. See Outpatient Medications at Discharge note for complete list of medications. /arleth/ NICOLLE PRATT RESIDENT Signed: 04/18/2024 11:45 /arleth/ DOMENICO STILL Attending Physician Cosigned: 04/18/2024 11:56 Receipt Acknowledged By: 04/18/2024 12:55 /arleth/ Maylin Gutierrez MD Primary Care Attending 04/18/2024 ADDENDUM STATUS: COMPLETED Pt seen, examined, and case discussed with house staff. I have participated in the santizo decision making for the patient's care, and I agree with the treatment plan. See Resident/Senior Clinical Research Associate note for further details. /arleth/ DOMENICO STILL Attending Physician Signed: 04/18/2024 14:53 04/18/2024 ADDENDUM STATUS: COMPLETED PLAN FOR FOLLOW UP: PCP within 1 week. pt does NOT need PC appt for f/u of GI bug, p1 alone within 2 weeks is okay unless pt needing to see us per his request. /arleth/ Maylin Gutierrez MD Primary Care Attending Signed: 04/18/2024 12:57 /arleth/ MARIO TOBIN Signed: 04/18/2024 13:23 04/21/2024 ADDENDUM STATUS: COMPLETED if pt needing BP f/u, can do when comes for labwork. /arleth/ Maylin Gutierrez MD Primary Care Attending Signed: 04/21/2024 10:40 MAYLIN GUTIERREZ-[facility] Apr 18, 2024 12:30 PM NURSING DISCHARGE NOTE: LOCAL TITLE: DISCHARGE INSTRUCTIONS STANDARD TITLE: NURSING DISCHARGE NOTE DATE OF NOTE: APR 18, 2024@12:30 ENTRY DATE: APR 18, 2024@12:31:46 AUTHOR: LUCY CELESTIN COSIGNER: URGENCY: STATUS: COMPLETED Discharge instructions provided to: Patient Contact telephone number: (This number will be used for our clinical staff to call you regarding your follow up.) See Chart LIFE-SUSTAINING TREATMENT NOTE: Progress Note Date Title Author (and Author's Title) APR 15, 2024@18:22 LIFE-SUSTAINING TREATM EDGARDO GARCIA (RESIDENT) Provided the /family with copy of most recent LST Note. PSYCHOSOCIAL SCREEN C-SSRS Screening [place] Suicide Severity Rating Scale (C-SSRS) screener 1. [...] required due to responses to other questions. C-SSRS Screen is Negative [employer] education material provided: OTHER: Gastroenteritis, HERVE FINAL DIAGNOSES: Campylobacter jejuni gastroenteritis, HERVE PROCEDURES: None. PLAN FOR FOLLOW UP: PCP within 1 week. PENDING DIAGNOSTIC TESTING AT DISCHARGE: None. DIET: Heart Healthy (Cardiac)/Regular ACTIVITY: As tolerated. WOUND CARE (Includes Pressure Ulcers): None. Future Appointments - Apr@10:30 [facility] PT4 Apr@11:00 [facility] PFT CDD Jun@13:40 [facility] POD/ATT5/LD Jul@14:00 [facility] NEPH FELLOW-B Aug@10:30 [facility] C-PAP A Diet: Heart Healthy (Cardiac)/Regular Heart Healthy (Cardiac)/Regular Activity: NO RESTRICTIONS Self Care: Independent Pressure Ulcer or Wound Care? No Flu Vaccine: Not Due Cover sheet reminders reviewed, flu shot not due at this time. Pneumonia Vaccine: Not Due Cover sheet reminders reviewed, pneumonia shot not due at this time. Tobacco Cessation Program Patient not interested in Outpatient Tobacco Cessation Program and/or Not Applicable. PLEASE STOP IN PHARMACY AND STRUCTURAL TEST ENGINEER YOUR MEDICATIONS See Outpatient Medications at Discharge note for complete list of medications. Equipment provided: none Healthy Life: Weight: (If you have Heart Failure we recommend you have a scale at home and follow the following instructions). Weigh yourself at the same time EVERY day. (Morning is preferred after emptying your bladder before eating or drinking.) Keep a record of your weight. Reduce your weight to no more than 10% greater than your ideal weight. In general, IF YOU GAIN MORE THAN 2 POUNDS OVERNIGHT OR MORE THAN 3-5 POUNDS IN ONE WEEK, CALL YOUR HEALTHCARE PROVIDER. Call if temperature greater than 101.4, Call if persistent vomiting greater than 2 times in 24 hours, Call if there is a change in mental status. Call if symptoms worsen. If you have any questions please contact our Telephone Care Program [phone] locally or Toll Free at After hours [place] Advice Nurse [phone] locally or Toll Free at [facility] Line is [phone], then press 1 To hear your scheduled appointments or to renew your prescriptions by phone call locally or Toll Free at . Patient/caregiver verbalized understanding of , discharge instruction. Copy of discharge , instructions provided to patient/caregiver. Wristband removed: Yes /arleth/ BEN [place] district plant supervisor RN Signed: 04/18/2024 12:33 LUCY CELESTIN-[facility] Apr 18, 2024 11:50 AM NURSING INPATIENT NOTE: LOCAL TITLE: [facility] NURSING FREQUENT DOCUMENTATION STANDARD TITLE: NURSING INPATIENT NOTE DATE OF NOTE: APR 18, 2024@11:50 ENTRY DATE: APR 18, 2024@11:50:33 AUTHOR: NANCI WESTBROOK EXP COSIGNER: URGENCY: STATUS: COMPLETED Version 2.4 Charting in accordance with [place] APPROVED [place] STANDARD (MSAES) ACUTE INPATIENT/REHABILITATION NURSING ADMISSION SCREENING, ASSESSMENT, AND STANDARDS OF CARE ======== ACTIVITIES OF DAILY LIVING ======== Hygiene ADLs: Dressing: Upper Body: Independent Lower Body: Independent Eating: Independent Oral Care: Non-ventilator patient: Patient teeth brushed: Independently The was educated that poor oral hygiene increases the risk of hospital acquired pneumonia and dental problems like gingivitis and tooth decay. was educated using their preferred method and verbalized understanding. Pericare: Independent Toileting: Independent /es/ NANCI WESTBROOK associate director of nursing Signed: 04/18/2024 11:51 NANCI WESTBROOK-[facility] Apr 18, 2024 11:40 AM PHARMACY MEDICATIO N MGT DISCHARGE NOTE: LOCAL TITLE: PHARMACY DISCHARGE PATIENT COUNSELING STANDARD TITLE: PHARMACY MEDICATION MGT DISCHARGE NOTE DATE OF NOTE: APR 18, 2024@11:40 ENTRY DATE: APR 18, 2024@11:40:54 AUTHOR: AKI LOZOYA EXP COSIGNER: URGENCY: STATUS: COMPLETED GIL SHELBY is a 78 yo WHITE MALE seen for pharmacy discharge counseling today. The Learning Barriers listed below were reviewed V9 Learning Barriers 04/09/2024 V9 Dexterity/Mobility Barrier Cane V9 Visual Barrier GLASSES See Outpatient Medications at Discharge note for complete list of medications. No medication changes. Patient instructed to CONTINUE taking medications. Medication doses, side effects, routes of administration, schedules and methods of administration were reviewed where appropriate. Topics also included potential drug-nutrient, drug-drug, or drug-disease state interactions. Patient was given verbal instruction, and has also been provided with the phone number for 24-hour assistance. Policies for [place] pharmacy refill procedure were reviewed. Patient is aware to contact health care provider should any questions or problems arise. Patient was provided a complete list of medications. Patient was educated/instructed to keep medication list availble to share with medical providers. Patient was instructed to car pick up driver any new medications in the outpatient pharmacy.: Yes refills per pt request Patient verbalized understanding of education. Patient provided with [place] prescription education materials ([employer]) for all dispensed medications. /arleth/ AKI LOZOYA, PHARM.D. CLINICAL PHARMACIST Signed: 04/18/2024 11:51 [facility] Apr 18, 2024 11:40 AM MEDICATION MGT DIS CHARGE NOTE: LOCAL TITLE: OUTPATIENT MEDICATIONS AT DISCHARGE STANDARD TITLE: MEDICATION MGT DISCHARGE NOTE DATE OF NOTE: APR 18, 2024@11:40 ENTRY DATE: APR 18, 2024@11:40:37 AUTHOR: AKI LOZOYA EXP COSIGNER: URGENCY: STATUS: COMPLETED The following are current [facility] outpatient medications for Mr. GIL SHELBY at the time of hospital discharge. (This list includes ACTIVE, PENDING, HOLD, and NON-VA medications.) ACCU-CHEK GUIDE (GLUCOSE) TEST STRIP USE 1 STRIP TO TEST PENDING BLOOD SUGAR DIRECTED # Refills: Quantity: 50 Issue Date: Provider: APIXABAN 5MG TAB TAKE ONE-HALF TABLET BY MOUTH TWICE A DAY ACTIVE TO THIN BLOOD -CALL ANTICOAGULATION CLINIC [phone] WITH QUESTIONS OR CONCERNS # Refills: 3 Quantity: 90 Issue Date: Apr 10, 2024 Provider: CAMILO MAYERS ATORVASTATIN CALCIUM 40MG TAB TAKE ONE-HALF TABLET BY ACTIVE MOUTH DAILY FOR CHOLESTEROL # Refills: 0 Quantity: 45 Issue Date: Jul 25, 2023 Provider: LON SCHMIDT CHLORTHALIDONE 25MG TAB TAKE ONE TABLET BY MOUTH DAILY FOR ACTIVE BLOOD PRESSURE # Refills: 0 Quantity: 60 Issue Date: Feb 21, 2024 Provider: MAYLIN GUTIERREZ FLUOXETINE HCL 20MG CAP TAKE ONE CAPSULE BY MOUTH DAILY ACTIVE FOR MOOD # Refills: 0 Quantity: 90 Issue Date: May 21, 2023 Provider: MAYLIN GUTIERREZ GABAPENTIN 300MG CAP TAKE TWO CAPSULES BY MOUTH TWICE A ACTIVE DAY FOR NERVE PAIN # Refills: 0 Quantity: 120 Issue Date: Oct 08, 2023 Provider: MAYLIN GUTIERREZ [id number] PENTOXIFYLLINE SA 400MG/PBO TAKE ONE TABLET BY ACTIVE MOUTH TWICE A DAY WITH FOOD. SWALLOW WHOLE-DO NOT CHEW, CRUSH OR CUT # Refills: 0 Quantity: 200 Issue Date: Mar 27, 2024 Provider: ISELA ASH LANCET,SOFTCLIX USE LANCET AFFECTED AREA DIRECTED PENDING # Refills: Quantity: 100 Issue Date: Provider: LISINOPRIL 40MG TAB TAKE ONE TABLET BY MOUTH DAILY FOR ACTIVE BLOOD PRESSURE/HEART # Refills: 0 Quantity: 90 Issue Date: May 21, 2023 Provider: MAYLIN GUTIERREZ METFORMIN HCL 500MG TAB TAKE ONE TABLET BY MOUTH TWICE A ACTIVE DAY FOR DIABETES # Refills: 0 Quantity: 60 Issue Date: Apr 04, 2024 Provider: MAYLIN GUTIERREZ METOPROLOL TARTRATE 50MG TAB TAKE ONE-HALF TABLET BY MOUTH ACTIVE TWICE A DAY FOR RAPID HEARTBEAT # Refills: 0 Quantity: 90 Issue Date: Apr 01, 2024 Provider: MAYLIN GUTIERREZ PANTOPRAZOLE NA 40MG EC TAB TAKE ONE TABLET BY MOUTH TWICE ACTIVE A DAY 30 MINUTES BEFORE A MEAL FOR STOMACH, 30 MINUTES BEFORE A MEAL. TAKE ON AN EMPTY STOMACH. # Refills: 0 Quantity: 180 Issue Date: May 21, 2023 Provider: MAYLIN GUTIERREZ SPIRONOLACTONE 25MG TAB TAKE ONE TABLET BY MOUTH DAILY FOR ACTIVE BLOOD PRESSURE/HEART # Refills: 0 Quantity: 90 Issue Date: May 21, 2023 Provider: MAYLIN GUTIERREZ REMOTE OUTPATIENT MEDICATIONS: The following are active REMOTE medications dispensed from other [place] Medical Facilities for Mr. GIL SHELBY. No Active Remote Medications for this patient /arleth/ AKI LOZOYA, PHARM.D. CLINICAL PHARMACIST Signed: 04/18/2024 11:51 AKI LOZOYA-[facility] Apr 18, 2024 11:32 AM PHYSICIAN DISCHARG E NOTE: LOCAL TITLE: DISCHARGE DAY PROGRESS NOTE STANDARD TITLE: PHYSICIAN DISCHARGE NOTE DATE OF NOTE: APR 18, 2024@11:32 ENTRY DATE: APR 18, 2024@11:32:35 AUTHOR: NICOLLE PRATT EXP COSIGNER: DOMENICO STILL URGENCY: STATUS: COMPLETED DISCHARGE DAY PROGRESS NOTE Has ADDENDA THE PERSON RESPONSIBLE FOR DICTATING/ENTERING THE DISCHARGE SUMMARY ON THIS PATIENT IS: Nicolle Pratt FINAL DIAGNOSES: Campylobacter jejuni gastroenteritis, HERVE PROCEDURES: None. PLAN FOR FOLLOW UP: PCP within 1 week. PENDING DIAGNOSTIC TESTING AT DISCHARGE: None. DIET: Heart Healthy (Cardiac)/Regular ACTIVITY: As tolerated. WOUND CARE (Includes Pressure Ulcers): None. SUBJECTIVE: Mr. Shelby reports diarrhea has slowed down. He had one semi- formed bowel movement this morning. He is walking without dizziness and tolerating PO. DISCHARGE EXAM: GENERAL : lying in bed, in NAD. HEENT: anicteric sclera, moist mucus membranes. CVS : RRR w/ normal S1 and S2. No murmurs/rubs/ gallops. PULM : Normal work of breathing. Lungs CTAB w/o rhonchi/rales/wheezes. GI : +BS, soft, nontender, nondistended. DERM : no noted rash, bruising, bleeding, wounds. MSK : No joint swelling or deformity. Neuro: alert. PSYCH : mood & affect appropriate. VITALS: BP: 169/76 (04/18/2024 11:12) Pulse: 60 (04/18/2024 11:12) Wt: 317.4 lb [143.97 kg] (04/09/2024 10:51) LAB DATA: PANEL 1 [id number] LC ONCE LB #[id number] Collection time: Apr 18, 2024@05:00 Test Name Result Units Range --------- ------ ----- ----- SODIUM 137 mmol/L 136 - 145 POTASSIUM 4.3 mmol/L 3.5 - 5.1 CHLORIDE 109 H mmol/L 98 - 107 CO2 21 L mmol/L 22 - 29 ANION GAP 7.0 mEq/L 3 - 19 GLUCOSE 177 H mg/dL 74 - 100 UREA NITROGEN 28 H mg/dL 9 - 25 CREATININE 2.05 H mg/dL 0.72 - 1.25 eGFR (CKD-EPI) 32 SEE EVAL CALCIUM 8.6 mg/dL 8.4 - 10.2 MEDICATION ADJUSTMENTS AND REASON: None. NEW MEDICATIONS AND REASON: None. See Outpatient Medications at Discharge note for complete list of medications. /arleth/ NICOLLE PRATT RESIDENT Signed: 04/18/2024 11:45 /arleth/ DOMENICO STILL Attending Physician Cosigned: 04/18/2024 11:56 Receipt Acknowledged By: 04/18/2024 12:55 /arleth/ Maylin Gutierrez MD Primary Care Attending 04/18/2024 ADDENDUM STATUS: COMPLETED Pt seen, examined, and case discussed with house staff. I have participated in the santizo decision making for the patient's care, and I agree with the treatment plan. See Resident/Senior Clinical Research Associate note for further details. /arleth/ DOMENICO STILL Attending Physician Signed: 04/18/2024 14:53 04/18/2024 ADDENDUM STATUS: COMPLETED pt does NOT need PC appt for f/u of GI bug, p1 alone within 2 weeks is okay unless pt needing to see us per his request. /arleth/ Maylin Gutierrez MD Primary Care Attending Signed: 04/18/2024 12:57 Receipt Acknowledged By: * AWAITING SIGNATURE * ROMMEL YAÑEZ * AWAITING SIGNATURE * RAHEEM WESTON 04/18/2024 ADDENDUM STATUS: COMPLETED PLAN FOR FOLLOW UP: PCP within 1 week. pt does NOT need PC appt for f/u of GI bug, p1 alone within 2 weeks is okay unless pt needing to see us per his request. /arleth/ Maylin Gutierrez MD Primary Care Attending Signed: 04/18/2024 12:57 /arleth/ MARIO TOBIN Signed: 04/18/2024 13:23 04/21/2024 ADDENDUM STATUS: COMPLETED if pt needing BP f/u, can do when comes for labwork. /arleth/ Maylin Gutierrez MD Primary Care Attending Signed: 04/21/2024 10:40 NICOLLE PRATT [facility] Apr 18, 2024 10:49 AM NURSING E & M NOTE : LOCAL TITLE: NURSING 24 HOUR ORDER VERIFICATION NOTE STANDARD TITLE: NURSING E & M NOTE DATE OF NOTE: APR 18, 2024@10:49 ENTRY DATE: APR 18, 2024@10:49:40 AUTHOR: AUDREY MIXON EXP COSIGNER: URGENCY: STATUS: COMPLETED Electronic and hard copy review for orders was completed. Life Sustaining Treatment Orders Cohort: Reminder Term: [facility]-LIFE SUSTAINING TREATMENT ORDERABLE ITEMS Orderable Item: LST DNR - DO NOT RESUSCITATE 04/15/2024@18:28 Status: active, Start date: 04/15/2024@18:28, Stop date: missing Duration: 3 D Orderable Item: LST NO INVASIVE MECHANICAL VENTILATION 04/15/2024@18:28 Status: active, Start date: 04/15/2024@18:28, Stop date: missing Duration: 3 D LST Note Verified /arleth/ Audrey Mixon, district plant supervisor RN Signed: 04/18/2024 10:50 AUDREY MIXON [facility] Apr 18, 2024 09:21 AM SCANNED NOTE: LOCAL TITLE: SCANNED ADMISSIONS/DISCHARGES STANDARD TITLE: SCANNED NOTE DATE OF NOTE: APR 18, 2024@09:21 ENTRY DATE: APR 21, 2024@09:21:56 AUTHOR: BRENNA FISHER EXP COSIGNER: URGENCY: STATUS: COMPLETED The scanned image may be viewed under [employer]. /arleth/ BRENNA FISHER INDUSTRIAL WELDER Signed: 04/21/2024 09:22 BRENNA FISHER [facility] Apr 18, 2024 09:10 AM NURSING INPATIENT NOTE: LOCAL TITLE: [facility] NURSING FREQUENT DOCUMENTATION STANDARD TITLE: NURSING INPATIENT NOTE DATE OF NOTE: APR 18, 2024@09:10 ENTRY DATE: APR 18, 2024@10:51:23 AUTHOR: AUDREY MIXON EXP COSIGNER: URGENCY: STATUS: COMPLETED Version 2.4 Charting in accordance with [place] APPROVED [place] STANDARD (MSAES) ACUTE INPATIENT/REHABILITATION NURSING ADMISSION SCREENING, ASSESSMENT, AND STANDARDS OF CARE ======== NATIONAL EARLY WARNING SCORE (NEWS) ======== The vital signs below were used for scoring: Temperature: 97.6 Pulse: 67 Blood Pressure: 153/75 Respiration: 18 Pulse Oximetry: 95 The NEWS total is 1. 1. Temperature (C/F): Score = 0 36.1 - 38.0 C (96.9 - 100.4 F) 2. Pulse: Score = 0 51-90 3. Respirations: Score = 0 12-20 4. Blood Pressure (Only Systolic BP, mmHg): Score = 0 111-219 5. Pulse Oximetry: Score = 1 94% - 95% 6. Supplemental oxygen in use: Score = 0 No 7. AVPU: Score = 0 Alert Patient Status: Remains on unit /arleth/ Audrey Mixon district plant supervisor RN Signed: 04/18/2024 10:53 AUDREY MIXONINGTON-CDD [facility] Apr 18, 2024 08:20 AM NURSING INPATIENT NOTE: LOCAL TITLE: [facility] ACUTE INPATIENT NSG SHIFT ASSESSMENT STANDARD TITLE: NURSING INPATIENT NOTE DATE OF NOTE: APR 18, 2024@08:20 ENTRY DATE: APR 18, 2024@11:57:21 AUTHOR: AUDREY MIXON EXP COSIGNER: URGENCY: STATUS: COMPLETED Version 2.2 Charting in accordance with [facility] NENANA STANDARD (MSAES) ACUTE INPATIENT/REHABILITATION NURSING ADMISSION SCREENING, ASSESSMENT, AND STANDARDS OF CARE ======== ASSESSMENT ======== ======== HANDOFF ======== Bedside report and handoff completed Safety check completed ======== PAIN ASSESSMENT ======== Patient's acceptable pain goal: 0 No pain Are you currently experiencing pain? No: Pain Score: 0 ======== MCALLISTER FALL SCALE & TIPS PROGRAM ======== Mcallister Fall Scale: The Mcallister Fall scale was performed and score was 35. This is indicative of moderate risk for falls. History of falling: immediate or within 3 months? No Secondary diagnosis: Yes Ambulatory aid: None/bedrest/nurse assist Intravenous therapy/Heparin lock: Yes Gait/Transferring: Normal/bed rest/immobile Mental Status: Oriented to own ability/knows own limitations Fall Tailoring Interventions for Patient Safety (TIPS) Fall TIPS initiated with patient: Yes Interventions: Communicate recent fall or risk of harm Assistance out of bed: Bed rest Call for assistance before getting out of bed Fall TIPS reviewed with patient: Yes Interventions: Communicate recent fall or risk of harm Assistance out of bed: Bed rest Call for assistance before getting out of bed ======== ENVIRONMENTAL SAFETY MANAGEMENT ======== Implemented safety standards of care: -Mena to unit & environment -Adequate room lighting -Bed in low and locked position -Call light within reach -Personal items within reach -Traffic path in room free of clutter -Non-slip footwear -Upper/half length side rails up for bed mobility -Sensory aids within reach -Encourage patient to utilize sensory support ======== NEUROLOGICAL ======== Neurological Orientation: Oriented x4 Level of Consciousness (AVPU): Alert = Appears aware of and responsive to the environment on their own. Follows commands, opens eyes spontaneously, and tracks objects. Affect/behavior: Cooperative Calm Waite Agitation Sedation Scale (RASS): 0 Alert and calm ======== NEUROMUSCULAR/NEUROVASCULAR EXTREMITIES ASSESSMENT ======== Strength: Slot Operations Manager Bilateral: Strong Upper Extremity Bilateral: Full strength Lower Extremity Bilateral: Full strength Sensation: Upper Extremity Sensation Bilateral: Intact Lower Extremity Sensation Bilateral: Intact Temperature: Upper Extremity Temperature Bilateral: Warm Lower Extremity Temperature Bilateral: Warm ======== CARDIOVASCULAR ======== Heart Sounds: Normal (S1S2) Heart Rate/Rhythm (without monitoring manager): Regular Capillary Refill: All 4 extremities, less than or equal to 3 seconds. Peripheral Pulses: All 4 extremities, 3+ normal. Edema: None ======== RESPIRATORY ======== Respirations: Unlabored Pattern: Regular Breath Sounds Auscultated: Anterior only Right Upper Lobe: Clear Left Upper Lobe: Clear Right Middle Lobe: Clear Right Lower Lobe: Clear Left Lower Lobe: Clear ======== GASTROINTESTINAL ======== Last bowel movement: 04/18/2024 Bowel movement reported by patient-unwitnessed Passing flatus Elimination: Continent Abdominal Description: Rounded Palpation: Soft, Non-tender Bowel Sounds: RUQ: Active LUQ: Active RLQ: Active LLQ: Hyperactive ======== GENITOURINARY ======== Elimination: Continent ======= INTEGUMENTARY/SKIN/WOUND - (INCLUDING LUIS) SEE NOTE: VAAES SKIN INPECTION/ASSESSMENT ======= ======= INTEGUMENTARY/SKIN/WOUND - (INCLUDING LUIS) ======= SKIN REINSPECTION/REASSESSMENT SKIN INSPECTION: Skin Color: Usual for ethnicity Skin Temperature: Warm Skin Moisture: Normal Skin Turgor: Elastic (normal/immediate) Luis Skin Assessment: The patient's Luis Scale Score is 22. The patient is considered not at risk for development of pressure ulcers/injuries. Sensory perception -- ability to respond meaningfully to pressure- related discomfort No impairment. Moisture -- degree to which skin is exposed to moisture Rarely moist. Activity -- ability to change and control body position Walks frequently. Mobility -- ability to change and control body position No limitation. Nutrition -- usual food intake patterns Adequate. Friction and shear No apparent problem. INTERVENTIONS: The pressure injury interventions were not needed - patient/resident is not at risk. SKIN ALTERATIONS: Pressure Ulcer/Injury Documentation from the past year: No data available SKIN ALTERATIONS: Wound Documentation from the past year: No data available for: Skin Integrity - Wound Skin Integrity - Wound Second Skin Integrity - Wound Third Skin Integrity - Wound Fourth Skin Integrity - Wound Fifth Skin Integrity - Wound Additional SKIN INTEGRITY: Intact ======== MOBILITY ======== Mobility Status: Independent: Able to stand and step without staff assistance Gait: Steady ======== IV LINES ======== Peripheral IV: Line #1: Assessment: Location: Right, Antecubital Gauge: 20 Dressing Condition: Clean, dry, intact Site Condition: No redness, swelling, pain Line Status: Capped Flushed ======== PSYCHOSOCIAL ======== Type of Emotional Support Provided: 1:1 discussion, Ventilation of feelings encouraged /arleth/ Audrey Mixon district plant supervisor RN Signed: 04/18/2024 14:29 AUDREY MIXON-Juan Carlos [facility] Apr 18, 2024 07:16 AM NURSING INTAKE & O UTPUT NOTE: LOCAL TITLE: NURSING INTAKE & OUTPUT NTOD STANDARD TITLE: NURSING INTAKE & OUTPUT NOTE DATE OF NOTE: APR 18, 2024@07:16 ENTRY DATE: APR 18, 2024@07:16:20 AUTHOR: MAYLIN ANAND EXP COSIGNER: URGENCY: STATUS: COMPLETED Shift Totals: START TIME: Mar@18:00 STOP TIME: Mar@06:00 INTAKE PO Fluids: 680 ml OUTPUT Total INTAKE: 680 ml Total OUTPUT: ml Unmeasured OUTPUT Urine x4 Date of Last Bowel Movement: Mar * If it has been more than 3 days since the patients last bowel movement please contact the provider. Comments: 24 hour totals Intake Total: 680ml Output Total: ml Total Unmeasured Output: Urine x4 Comments: No I/O recorded on dayshift STOP TIME: Mar@06:00 SVS - Weight Measurement DT WEIGHT LB(KG)[BMI] 04/09/2024 10:51 317.4(143.97)[42*] /arleth/ BEN decker,district plant supervisor RN Signed: 04/18/2024 07:17 MAYLIN ANAND-MAUREEN [facility] Apr 18, 2024 04:55 AM NURSING INPATIENT NOTE: LOCAL TITLE: [facility] NURSING FREQUENT DOCUMENTATION STANDARD TITLE: NURSING INPATIENT NOTE DATE OF NOTE: APR 18, 2024@04:55 ENTRY DATE: APR 18, 2024@04:56:01 AUTHOR: MAYLIN ANAND EXP COSIGNER: URGENCY: STATUS: COMPLETED Version 2.4 Charting in accordance with [place] APPROVED [place] STANDARD (MSAES) ACUTE INPATIENT/REHABILITATION NURSING ADMISSION SCREENING, ASSESSMENT, AND STANDARDS OF CARE ======== NATIONAL EARLY WARNING SCORE (NEWS) ======== The following vital measurements were used to complete the NEWS. Measurement DT TEMP PULSE RESP BP POx F(C) (L/MIN)(%) 04/18/2024 04:49 97.1(36.2) 62 18 153/75 93 The NEWS total is 2. 1. Temperature (C/F): Score = 0 36.1 - 38.0 C (96.9 - 100.4 F) 2. Pulse: Score = 0 51-90 3. Respirations: Score = 0 12-20 4. Blood Pressure (Only Systolic BP, mmHg): Score = 0 111-219 5. Pulse Oximetry: Score = 2 92% - 93% 6. Supplemental oxygen in use: Score = 0 No 7. AVPU: Score = 0 Alert Action/Interventions Taken: Repeat NEWS scoring with next vital signs Patient Status: Remains on unit // BEN decker,district plant supervisor RN Signed: 04/18/2024 04:57 MAYLIN ANAND [place]-CDD [facility] Apr 17, 2024 11:57 PM NURSING INPATIENT NOTE: LOCAL TITLE: [facility] ACUTE INPATIENT NSG SHIFT ASSESSMENT STANDARD TITLE: NURSING INPATIENT NOTE DATE OF NOTE: APR 17, 2024@23:57 ENTRY DATE: APR 17, 2024@23:57:19 AUTHOR: MAYLIN ANAND EXP COSIGNER: URGENCY: STATUS: COMPLETED Version 2.2 Charting in accordance with [facility] NENANA STANDARD (MSAES) ACUTE INPATIENT/REHABILITATION NURSING ADMISSION SCREENING, ASSESSMENT, AND STANDARDS OF CARE ======== ASSESSMENT ======== ======== HANDOFF ======== Bedside report and handoff completed Safety check completed ======== PAIN ASSESSMENT ======== Patient's acceptable pain goal: 0 No pain Are you currently experiencing pain? No: Pain Score: 0 ======== MCALLISTER FALL SCALE & TIPS PROGRAM ======== Mcallister Fall Scale: The Mcallister Fall scale was performed and score was 35. This is indicative of moderate risk for falls. History of falling: immediate or within 3 months? No Secondary diagnosis: Yes Ambulatory aid: None/bedrest/nurse assist Intravenous therapy/Heparin lock: Yes Gait/Transferring: Normal/bed rest/immobile Mental Status: Oriented to own ability/knows own limitations Fall Tailoring Interventions for Patient Safety (TIPS) Fall TIPS initiated with patient: Yes Interventions: Communicate recent fall or risk of harm Assistance out of bed: Bed rest Call for assistance before getting out of bed Fall TIPS reviewed with patient: Yes Interventions: Communicate recent fall or risk of harm Assistance out of bed: Bed rest Call for assistance before getting out of bed ======== ENVIRONMENTAL SAFETY MANAGEMENT ======== Implemented safety standards of care: -Mena to unit & environment -Adequate room lighting -Bed in low and locked position -Call light within reach -Personal items within reach -Traffic path in room free of clutter -Non-slip footwear -Upper/half length side rails up for bed mobility -Sensory aids within reach -Encourage patient to utilize sensory support ======== NEUROLOGICAL ======== Neurological Orientation: Oriented x4 Level of Consciousness (AVPU): Alert = Appears aware of and responsive to the environment on their own. Follows commands, opens eyes spontaneously, and tracks objects. Affect/behavior: Cooperative Calm Waite Agitation Sedation Scale (RASS): 0 Alert and calm ======== NEUROMUSCULAR/NEUROVASCULAR EXTREMITIES ASSESSMENT ======== Strength: Slot Operations Manager Bilateral: Strong Upper Extremity Bilateral: Full strength Lower Extremity Bilateral: Full strength Sensation: Upper Extremity Sensation Bilateral: Intact Lower Extremity Sensation Bilateral: Intact Temperature: Upper Extremity Temperature Bilateral: Warm Lower Extremity Temperature Bilateral: Warm ======== CARDIOVASCULAR ======== Heart Sounds: Normal (S1S2) Heart Rate/Rhythm (without monitoring manager): Regular Capillary Refill: All 4 extremities, less than or equal to 3 seconds. Peripheral Pulses: All 4 extremities, 3+ normal. Edema: None ======== RESPIRATORY ======== Respirations: Unlabored Pattern: Regular Breath Sounds Auscultated: Anterior only Right Upper Lobe: Clear Left Upper Lobe: Clear Right Middle Lobe: Clear Right Lower Lobe: Clear Left Lower Lobe: Clear ======== GASTROINTESTINAL ======== Last bowel movement: 04/16/2024 Bowel movement reported by patient-unwitnessed Passing flatus Elimination: Continent Abdominal Description: Rounded Palpation: Soft, Non-tender Bowel Sounds: RUQ: Active LUQ: Active RLQ: Active LLQ: Active ======== GENITOURINARY ======== Elimination: Continent ======= INTEGUMENTARY/SKIN/WOUND - (INCLUDING LUIS) SEE NOTE: VAAES SKIN INPECTION/ASSESSMENT ======= ======= INTEGUMENTARY/SKIN/WOUND - (INCLUDING LUIS) ======= SKIN REINSPECTION/REASSESSMENT SKIN INSPECTION: Skin Color: Usual for ethnicity Skin Temperature: Warm Skin Moisture: Normal Skin Turgor: Elastic (normal/immediate) Luis Skin Assessment: The patient's Luis Scale Score is 22. The patient is considered not at risk for development of pressure ulcers/injuries. Sensory perception -- ability to respond meaningfully to pressure- related discomfort No impairment. Moisture -- degree to which skin is exposed to moisture Rarely moist. Activity -- ability to change and control body position Walks frequently. Mobility -- ability to change and control body position No limitation. Nutrition -- usual food intake patterns Adequate. Friction and shear No apparent problem. INTERVENTIONS: The pressure injury interventions were not needed - patient/resident is not at risk. SKIN ALTERATIONS: Pressure Ulcer/Injury Documentation from the past year: No data available SKIN ALTERATIONS: Wound Documentation from the past year: No data available for: Skin Integrity - Wound Skin Integrity - Wound Second Skin Integrity - Wound Third Skin Integrity - Wound Fourth Skin Integrity - Wound Fifth Skin Integrity - Wound Additional SKIN INTEGRITY: Intact ======== IV LINES ======== Peripheral IV: Line #1: Assessment: Location: Right, Antecubital Gauge: 20 Dressing Condition: Clean, dry, intact Site Condition: No redness, swelling, pain Line Status: Capped Flushed ======== PSYCHOSOCIAL ======== Type of Emotional Support Provided: 1:1 discussion, Ventilation of feelings encouraged /arleth/ BEN decker,district plant supervisor RN Signed: 04/18/2024 00:02 MAYLIN ANAND-MAUREEN [facility] Apr 17, 2024 09:40 PM NURSING INPATIENT NOTE: LOCAL TITLE: [facility] NURSING FREQUENT DOCUMENTATION STANDARD TITLE: NURSING INPATIENT NOTE DATE OF NOTE: APR 17, 2024@21:40 ENTRY DATE: APR 17, 2024@21:40:37 AUTHOR: MAYLIN ANAND COSIGNER: URGENCY: STATUS: COMPLETED Version 2.4 Charting in accordance with [place] APPROVED [place] STANDARD (MSAES) ACUTE INPATIENT/REHABILITATION NURSING ADMISSION SCREENING, ASSESSMENT, AND STANDARDS OF CARE ======== NATIONAL EARLY WARNING SCORE (NEWS) ======== The following vital measurements were used to complete the NEWS. Measurement DT TEMP PULSE RESP BP POx F(C) (L/MIN)(%) 04/17/2024 20:25 97.7(36.5) 68 18 148/70 97 The NEWS total is 0. 1. Temperature [...] No 7. AVPU: Score = 0 Alert Action/Interventions Taken: Repeat NEWS scoring with next vital signs Patient Status: Remains on unit ======== ACTIVITIES OF DAILY LIVING ======== Hygiene ADLs: Oral Care: Non-ventilator patient: Patient teeth brushed: Independently The was educated that poor oral hygiene increases the risk of hospital acquired pneumonia and dental problems like gingivitis and tooth decay. was educated using their preferred method and verbalized understanding. /arleth/ BEN decker,district plant supervisor RN Signed: 04/17/2024 21:46 MAYLIN ANAND-CDD [facility] Apr 17, 2024 09:23 PM NURSING INPATIENT NOTE: LOCAL TITLE: [facility] NURSING FREQUENT DOCUMENTATION STANDARD TITLE: NURSING INPATIENT NOTE DATE OF NOTE: APR 17, 2024@21:23 ENTRY DATE: APR 17, 2024@21:23:36 AUTHOR: ERIN PEDRAZA COSIGNER: URGENCY: STATUS: COMPLETED Version 2.4 Charting in accordance with [place] APPROVED [place] STANDARD ([facility]) ACUTE INPATIENT/REHABILITATION NURSING ADMISSION SCREENING, ASSESSMENT, AND STANDARDS OF CARE ======== ACTIVITIES OF DAILY LIVING ======== Hygiene ADLs: Dressing: Upper Body: Independent Lower Body: Independent Eating: Independent Oral Care: Non-ventilator patient: Patient teeth brushed: Independently Personal Care: Independent Toileting: Independent ======== ENVIRONMENTAL SAFETY MANAGEMENT ======== Implemented safety standards of care: -Mena to unit & environment -Adequate room lighting -Bed in low and locked position -Call light within reach -Personal items within reach -Traffic path in room free of clutter -Non-slip footwear -Upper/half length side rails up for bed mobility -Sensory aids within reach -Encourage patient to utilize sensory support /arleth/ GREGG MUSTAFA BALL TRUING MACHINE OPERATOR Signed: 04/17/2024 21:25 ERIN PEDRAZA-CDD [facility] Apr 17, 2024 03:55 PM INTERNAL MEDICINE NOTE: LOCAL TITLE: MEDICINE SOAP NOTE STANDARD TITLE: INTERNAL MEDICINE NOTE DATE OF NOTE: APR 17, 2024@15:55 ENTRY DATE: APR 17, 2024@15:56:09 AUTHOR: NICOLLE PRATT COSIGNER: CHERYL HURT URGENCY: STATUS: COMPLETED MEDICINE SOAP NOTE Has ADDENDA Overnight: no events SUBJECTIVE: Reports 4 watery bowel movements in last day, no blood in stool. No abdominal pain, no dizziness. ROS: none except as mentioned above OBJECTIVE: VITALS: Tc: 97.9 F [36.6 C] (04/17/2024 14:58) HR: 67 (04/17/2024 14:58) RR: 18 (04/17/2024 14:58) BP: 127/74 (04/17/2024 14:58) SpO2: APR 17, 2024@14:58 -- PULSE OXIMETRY: 94 PHYSICIAL EXAM: GENERAL : lying in bed, in NAD. HEENT: anicteric sclera, moist mucus membranes. CVS : RRR w/ normal S1 and S2. No murmurs/rubs/ gallops; 1+ peripheral edema. PULM : Normal work of breathing. Lungs CTAB w/o rhonchi/rales/wheezes. GI : +BS, soft, nontender, nondistended. DERM : no noted rash, bruising, bleeding, wounds. MSK : No joint swelling or deformity. Neuro: alert. PSYCH : mood & affect appropriate. MEDS: Active Inpatient Medications (including Supplies): Active Inpatient Medications Status 1) APIXABAN TAB,ORAL 2.5MG PO BID ACTIVE 2) ATORVASTATIN TAB 20MG PO DAILY ACTIVE 3) FLUOXETINE CAP,ORAL 20MG PO DAILY ACTIVE 4) GABAPENTIN CAP,ORAL 400MG PO BID ACTIVE 5) LOPERAMIDE CAP,ORAL 2MG PO Q4H PRN ACTIVE 6) METOPROLOL TARTRATE *IR* TAB 25MG PO BID ACTIVE 7) PANTOPRAZOLE TAB,EC 40MG PO BID_PPI ACTIVE 8) SPIRONOLACTONE *HANDLING ALERT* TAB 25MG PO DAILY ACTIVE DATA: Collection sample: STOOL Collection date: Apr 15, 2024 19:21 Site/Specimen: [facility] Provider: CARRINGTON GRISSOM Test(s) ordered: CULTURE, STOOL................ completed: Apr 17, 2024 * BACTERIOLOGY PRELIMINARY REPORT => Apr 17, 2024 13:46 TECH CODE: [id number] CULTURE RESULTS: CAMPYLOBACTER JEJUNI Comment: REPORT SENT TO INFECTION CONTROL A/P: Gil Shelby is 78 yo man with PMH significant for CKD3, Afib, DMII, ROWAN, HLD, GERD anxiety/depression here for watery diarrhea likely due to campylobacter jejuni infection. Watery diarrhea likely due to campylobacter jejuni infection - 5-6 days, 5-8x per day with nightime episodes - stool culture positive for campylobacter jejuni. C. Diff negative. Plan: - continue supportive care as this is typically a self-limited infectious diarrhea - Loperaminde prn HERVE on CKD3 (improved) - Baseline Cr ~ 1.7-1.8 - Cr 4.5 in ED. Now 3.29 - Likely 2/2 dehydration Plan - Fluids as per above - BMP in the a.m. Chronic conditions DMII - hold metformin Afib - continue apixaban, metoprolol HLD - continue atorvastatin Anxiety/depression - continue fluoxetine GERD - continue pantoprazole Back pain - continue gabapentin FEN/DVT Ppx: F: PO E: replete prn N: regular DVT Ppx: apixaban Code Status: Full Code Dispo:pending Nicolle Pratt MD PGY1 Pager: [phone] /arleth/ NICOLLE PRATT RESIDENT Signed: 04/17/2024 16:09 /es/ CHERYL HURT MD Hospitalist Cosigned: 04/17/2024 16:19 04/17/2024 ADDENDUM STATUS: COMPLETED Vet seen and examined, case, data, cx results and plan of care d/w team. Doing better, still having frequent small volume stools, no blood, no pain, no f/c/n/v, good po intake. Exam - benign GI, nt,nd. COntinue supportive care, start imodium prn, if cr stable and sx still improving can d/c in the morning; defer abx therapy as limited benefit in this scenario, especially after 72 hr sujatha. /es/ CHERYL HURT MD Hospitalist Signed: 04/17/2024 16:21 KARL PRATTALEXEI Alex LEVAR-CDD [facility] Apr 17, 2024 11:14 AM NURSING INPATIENT NOTE: LOCAL TITLE: MSAES ACUTE INPATIENT NSG SHIFT ASSESSMENT STANDARD TITLE: NURSING INPATIENT NOTE DATE OF NOTE: APR 17, 2024@11:14 ENTRY DATE: APR 17, 2024@11:14:31 AUTHOR: ZACHERY VASQUEZ COSIGNER: URGENCY: STATUS: COMPLETED Version 2.2 Charting in accordance with [facility] STANDARD (MSAES) ACUTE INPATIENT/REHABILITATION NURSING ADMISSION SCREENING, ASSESSMENT, AND STANDARDS OF CARE ======== ASSESSMENT ======== ======== HANDOFF ======== Bedside report and handoff completed Safety check completed ======== PAIN ASSESSMENT ======== Patient's acceptable pain goal: 0 No pain Are you currently experiencing pain? No: Pain Score: 0 ======== MCALLISTER FALL SCALE & TIPS PROGRAM ======== Mcallister Fall Scale: The Mcallister Fall scale was performed and score was 35. This is indicative of moderate risk for falls. History of falling: immediate or within 3 months? No Secondary diagnosis: Yes Ambulatory aid: None/bedrest/nurse assist Intravenous therapy/Heparin lock: Yes Gait/Transferring: Normal/bed rest/immobile Mental Status: Oriented to own ability/knows own limitations Fall Tailoring Interventions for Patient Safety (TIPS) Fall TIPS reviewed with patient: Yes Interventions: Assistance out of bed: Call for assistance before getting out of bed ======== ENVIRONMENTAL SAFETY MANAGEMENT ======== Implemented safety standards of care: -Mena to unit & environment -Adequate room lighting -Bed in low and locked position -Call light within reach -Personal items within reach -Traffic path in room free of clutter -Non-slip footwear -Upper/half length side rails up for bed mobility -Sensory aids within reach -Encourage patient to utilize sensory support ======== NEUROLOGICAL ======== Neurological Orientation: Oriented x4 Level of Consciousness (AVPU): Alert = Appears aware of and responsive to the environment on their own. Follows commands, opens eyes spontaneously, and tracks objects. ======== NEUROMUSCULAR/NEUROVASCULAR EXTREMITIES ASSESSMENT ======== Strength: Slot Operations Manager Bilateral: Strong Upper Extremity Bilateral: Full strength Lower Extremity Bilateral: Full strength Sensation: Upper Extremity Sensation Bilateral: Intact Lower Extremity Sensation Bilateral: Intact Temperature: Upper Extremity Temperature Bilateral: Warm Lower Extremity Temperature Bilateral: Warm ======== CARDIOVASCULAR ======== Heart Sounds: Normal (S1S2) Heart Rate/Rhythm (without monitoring manager): Regular Capillary Refill: All 4 extremities, less than or equal to 3 seconds. Peripheral Pulses: All 4 extremities, 3+ normal. Edema: None ======== RESPIRATORY ======== Respirations: Unlabored Pattern: Regular Breath Sounds Auscultated: Left Upper Lobe: Clear Right Upper Lobe: Clear Right Middle Lobe: Clear Left Lower Lobe: Clear Right Lower Lobe: Clear ======== GASTROINTESTINAL ======== Elimination: Continent Abdominal Description: Rounded Palpation: Soft, Non-tender Bowel Sounds: RUQ: Active LUQ: Active RLQ: Active LLQ: Active ======== GENITOURINARY ======== Elimination: Continent ======= INTEGUMENTARY/SKIN/WOUND - (INCLUDING LUIS) SEE NOTE: VAAES SKIN INPECTION/ASSESSMENT ======= ======= INTEGUMENTARY/SKIN/WOUND - (INCLUDING LUIS) ======= SKIN REINSPECTION/REASSESSMENT SKIN INSPECTION: Skin Color: Usual for ethnicity Skin Temperature: Warm Skin Moisture: Normal Skin Turgor: Elastic (normal/immediate) Luis Skin Assessment: The patient's Luis Scale Score is 23. The patient is considered not at risk for development of pressure ulcers/injuries. Sensory perception -- ability to respond meaningfully to pressure- related discomfort No impairment. Moisture -- degree to which skin is exposed to moisture Rarely moist. Activity -- ability to change and control body position Walks frequently. Mobility -- ability to change and control body position No limitation. Nutrition -- usual food intake patterns Excellent. Friction and shear No apparent problem. INTERVENTIONS: The pressure injury interventions were not needed - patient/resident is not at risk. SKIN INTEGRITY: Intact ======== ACTIVITIES OF DAILY LIVING ======== Hygiene ADLs: Oral Care: Non-ventilator patient: Patient teeth brushed: Independently [facility] [place] was educated that poor oral hygiene increases the risk of hospital acquired pneumonia and dental problems like gingivitis and tooth decay. was educated using their preferred method and verbalized understanding. ======== MOBILITY ======== Mobility Status: Independent: Able to stand and step without staff assistance Gait: Steady ======== IV LINES ======== Peripheral IV: Line #1: Assessment: Location: Right, Antecubital Gauge: 20 Dressing Condition: Clean, dry, intact Site Condition: No redness, swelling, pain Line Status: Capped Flushed ======== PSYCHOSOCIAL ======== Type of Emotional Support Provided: 1:1 david /arleth/ Zachery CONTRERAS, district plant supervisor RN Signed: 04/17/2024 11:18 ZACHERY VASQUEZ-CDD [facility] Apr 17, 2024 10:49 AM NUTRITION RISK ASS ESSMENT SCREENING NOTE: LOCAL TITLE: NUTRITION ASSESSMENT STANDARD TITLE: NUTRITION RISK ASSESSMENT SCREENING NOTE DATE OF NOTE: APR 17, 2024@10:49 ENTRY DATE: APR 17, 2024@10:50:04 AUTHOR: SUJATHA BUSH EXP COSIGNER: URGENCY: STATUS: COMPLETED PATIENT HISTORY: Age: 78 Sex: MALE Gil Shelby is 78 yo man with PMH significant for CKD3, Afib, DMII, ROWAN, HLD, GERD anxiety/depression here for watery diarrhea. C diff negative is negative, other tests comig back. GI consulted for inflammatory diarrhea. Pertinent Medical History: 1. Paroxysmal atrial fibrillation 2. Long-term current use of anticoagulant 3. Chronic Kidney Disease Stage 3 (SCT 410072868) 4. Chronic pain 5. Long-term current use of oral hypoglycemic medication 6. Exertional dyspnea 7. Anemia 8. Chronic kidney disease stage 3 due to type 2 diabetes mellitus 9. Acquired trigger finger of left index finger 10. Diabetic neuropathy 11. Jay's Esophagus (SCT 653119278) repeat due 01/2021 12. Adenomatous polyp of [...] 19. Lumbar spondylosis with myelopathy (SNOMED CT 39235183) 20. Personal History of Venous Thrombosis and Embolism 21. Obstructive sleep apnea syndrome (SNOMED CT 49937604) 22. Obesity (SNOMED CT 495869221) 23. Mixed hyperlipidemia (SNOMED CT 106355046) 24. Benign hypertensive renal disease ANTHROPOMETRIC MEASUREMENTS: Ht: 73 in Wt: 317.4 lb BODY MASS INDEX - 42.0, Obesity class III [place] Body Weight: 184#/144% Adj BW: 205# Weight HX: 05-08-23 15:00:17 305.8 CARLOS PACT GUAMAN 16-1 YURY ZAFAR 05-10-23 15:04:01 306 CARLOS MED CARD A-5 MIO RIVERA 06-05-23 13:50:00 312.0 CARLOS VSMLOC PATTIE VIZCARRA 10-02-23 15:19:00 315.2 CARLOS VSMLOC [facility] 11-05-23 14:28:00 310.0 CARLOS VSMLOC [facility] 02-05-24 12:36:00 314.0 CARLOS VSMLOC ROBER WALKER 04-09-24 10:51:39 317.4 CARLOS PACT GUAMAN 16-1 YURY ZAFAR Weight eval: Stable, slight increase in weight, not significant NUTRITION FOCUSED PHYSICAL EXAM: GI/Abdomen: No GI intolerance reported. Skin: Luis 19, skin intact No Pressure ulcers per director of reservations. Fluid Status/Edema: No edema per documentation. Subcutaneous Fat Loss: None Muscle Mass Loss: None FOOD/NUTRITION RELATED HISTORY: Diet Order: Regular Intake: 25-50% Histroy: Spoke with Vet at bedside. Stated appetite not great, but per EMR no significant weight loss. UBW in low 300s. No chewing or swallowing problems. Put diet recs for when diet advances to solids. Will continue to follow pt. MALNUTRITION ASSESSMENT: Based on current clinical assessment, patient does not meet ASPEN/AND criteria for malnutrition. MEDICATIONS: APIXABAN TAB,ORAL 2.5MG PO BID ACTIVE ATORVASTATIN TAB 20MG PO DAILY ACTIVE FLUOXETINE CAP,ORAL 20MG PO DAILY ACTIVE GABAPENTIN CAP,ORAL 600MG PO BID ACTIVE METOPROLOL TARTRATE *IR* TAB 25MG PO BID ACTIVE PANTOPRAZOLE TAB,EC 40MG PO BID_PPI ACTIVE SPIRONOLACTONE *HANDLING ALERT* TAB 25MG PO DAILY ACTIVE BIOCHEMICAL DATA, MEDICAL TESTS/PROCEDURES: 04/09/2024 09:50 BLOOD !! GLYCOHEMOGLOBIN 6.4 % 04/17/2024 05:00 PLASMA!! CREATININE 2.39 H mg/dL Glucose: 117 mg/dL H (04/17/2024 05:00) Urea Nitrogen: 35 mg/dL H (04/17/2024 05:00) Sodium: 138 mmol/L (04/17/2024 05:00) Potassium: 4.3 mmol/L (04/17/2024 05:00) Magnesium: 2.0 mg/dL (04/09/2024 09:50) Phosphorus: 2.6 mg/dL (02/05/2024 12:20) Albumin: 3.8 g/dL (04/15/2024 14:41) Cholesterol: 155 mg/dL (04/09/2024 09:50) HDL Cholesterol: 32 mg/dL L (04/09/2024 09:50) Triglyceride: 252 mg/dL H (04/09/2024 09:50) MCV: 89.1 fL (04/17/2024 05:00) FSBS: 125 mg/dL H (04/17/2024 06:55) Nutrition problem: Altered GI function Etiology: diarrhea of unknown cause for now Signs/symptoms: Need for diet modifications (GI soft diet) Nutrition problem: Decreased nutrient needs (Pro, Na/Phos/K/Ca) Etiology: CKD 3 Signs/symptoms: Decreased need for kidney protection Nutrition problem: Obesity Etiology: Excessive kcal intakes Signs/symptoms: BMI 42 = obesity class III ESTIMATED NUTRIENT NEEDS: Calories: 4934-9065 kcal Protein: 74 g Fluid: 8497-8766 mL Na: <2300 mg Ca: 800-1000 mg K: intakes to keep blood levels in range Phos: intakes to keep blood levels in range NUTRITION INTERVENTIONS: Diet: Regular, changing to GI soft, renal pre-dialysis Supplements: as needed NUTRITION MONITORING/GOALS: - PO: 50-100% - Weight: maintain/lose /es/ M. Jame Bush RDN Clinical Dietitan Signed: 04/17/2024 14:56 SUJATHA BUSH-MAUREEN [facility] Apr 17, 2024 08:57 AM NURSING E & M NOTE : LOCAL TITLE: NURSING 24 HOUR ORDER VERIFICATION NOTE STANDARD TITLE: NURSING E & M NOTE DATE OF NOTE: APR 17, 2024@08:57 ENTRY DATE: APR 17, 2024@08:57:15 AUTHOR: ZACHERY VASQUEZ COSIGNER: URGENCY: STATUS: COMPLETED Electronic and hard copy review for orders was completed. Life Sustaining Treatment Orders Cohort: Reminder Term: [facility]-LIFE SUSTAINING TREATMENT ORDERABLE ITEMS Orderable Item: LST DNR - DO NOT RESUSCITATE 04/15/2024@18:28 Status: active, Start date: 04/15/2024@18:28, Stop date: missing Duration: 2 D Orderable Item: LST NO INVASIVE MECHANICAL VENTILATION 04/15/2024@18:28 Status: active, Start date: 04/15/2024@18:28, Stop date: missing Duration: 2 D LST Note Verified /arleth/ Zachery CONTRERAS, district plant supervisor RN Signed: 04/17/2024 08:57 ZACHERY VASQUEZ-MAUREEN [facility] Apr 17, 2024 08:57 AM NURSING INPATIENT NOTE: LOCAL TITLE: [facility] NURSING FREQUENT DOCUMENTATION STANDARD TITLE: NURSING INPATIENT NOTE DATE OF NOTE: APR 17, 2024@08:57 ENTRY DATE: APR 17, 2024@08:57:51 AUTHOR: ZACHERY VASQUEZ EXP COSIGNER: URGENCY: STATUS: COMPLETED Version 2.4 Charting in accordance with [facility] STANDARD (MSAES) ACUTE INPATIENT/REHABILITATION NURSING ADMISSION SCREENING, ASSESSMENT, AND STANDARDS OF CARE ======== NATIONAL EARLY WARNING SCORE (NEWS) ======== The following vital measurements were used to complete the NEWS. Measurement DT TEMP PULSE RESP BP POx F(C) (L/MIN)(%) 04/17/2024 08:24 97.6(36.4) 73 18 131/70 95 The NEWS total is 1. 1. Temperature (C/F): Score = 0 36.1 - 38.0 C (96.9 - 100.4 F) 2. Pulse: Score = 0 51-90 3. Respirations: Score = 0 12-20 4. Blood Pressure (Only Systolic BP, mmHg): Score = 0 111-219 5. Pulse Oximetry: Score = 1 94% - 95% 6. Supplemental oxygen in use: Score = 0 No 7. AVPU: Score = 0 Alert /arleth/ Zachery CONTRERAS, district plant supervisor RN Signed: 04/17/2024 08:58 ZACHERY VASQUEZJuan Carlos [facility] Apr 17, 2024 08:43 AM NURSING INTAKE & O UTPUT NOTE: LOCAL TITLE: NURSING INTAKE & OUTPUT NTOD STANDARD TITLE: NURSING INTAKE & OUTPUT NOTE DATE OF NOTE: APR 17, 2024@08:43 ENTRY DATE: APR 17, 2024@08:43:51 AUTHOR: DYLAN BURNETTE EXP COSIGNER: URGENCY: STATUS: COMPLETED Shift Totals: START TIME: Mar@18:00 STOP TIME: Mar@06:00 INTAKE PO Fluids: 1600 ml OUTPUT Urine: X3 ml Stool: X3 ml Total INTAKE: 1600 ml Total OUTPUT: X6 ml Unmeasured OUTPUT Urine x3 Stool x3 Date of Last Bowel Movement: Mar * If it has been more than 3 days since the patients last bowel movement please contact the provider. Comments: 24 hour totals Intake Total: 2040ml Output Total: 10Xml Total Unmeasured Output: Urine x5 Stool x5 Comments: STOP TIME: Mar@06:00 SVS - Weight Measurement DT WEIGHT LB(KG)[BMI] 04/09/2024 10:51 317.4(143.97)[42*] /arleth/ DYLAN BURNETTE STOKER ERECTOR RN Signed: 04/17/2024 08:48 DYLAN BURNETTE [facility] Apr 17, 2024 05:04 AM NURSING INPATIENT NOTE: LOCAL TITLE: [facility] NURSING FREQUENT DOCUMENTATION STANDARD TITLE: NURSING INPATIENT NOTE DATE OF NOTE: APR 17, 2024@05:04 ENTRY DATE: APR 17, 2024@05:04:12 AUTHOR: DYLAN BURNETTE EXP COSIGNER: URGENCY: STATUS: COMPLETED Version 2.4 Charting in accordance with [facility] STANDARD (MSAES) ACUTE INPATIENT/REHABILITATION NURSING ADMISSION SCREENING, ASSESSMENT, AND STANDARDS OF CARE ======== NATIONAL EARLY WARNING SCORE (NEWS) ======== The following vital measurements were used to complete the NEWS. Measurement DT TEMP PULSE RESP BP POx F(C) (L/MIN)(%) 04/17/2024 04:01 96.7(35.9) 62 18 148/73 96 The NEWS total is 0. 1. Temperature [...] No 7. AVPU: Score = 0 Alert /es/ DYLAN BURNETTE STOKER ERECTOR RN Signed: 04/17/2024 05:05 DYLAN BURNETTE-CHRISTIANOD [facility] Apr 17, 2024 12:34 AM NURSING INPATIENT NOTE: LOCAL TITLE: [facility] ACUTE INPATIENT NSG SHIFT ASSESSMENT STANDARD TITLE: NURSING INPATIENT NOTE DATE OF NOTE: APR 17, 2024@00:34 ENTRY DATE: APR 17, 2024@00:34:11 AUTHOR: DYLAN BURNETTE EXP COSIGNER: URGENCY: STATUS: COMPLETED Version 2.2 Charting in accordance with [facility] STANDARD (MSAES) ACUTE INPATIENT/REHABILITATION NURSING ADMISSION SCREENING, ASSESSMENT, AND STANDARDS OF CARE ======== ASSESSMENT ======== ======== HANDOFF ======== Bedside report and handoff completed Safety check completed ======== PAIN ASSESSMENT ======== Patient's acceptable pain goal: 0 No pain Are you currently experiencing pain? No: Pain Score: 0 ======== MCALLISTER FALL SCALE & TIPS PROGRAM ======== Mcallister Fall Scale: The Mcallister Fall scale was performed and score was 60. This is indicative of high risk for falls. History of falling: immediate or within 3 months? No Secondary diagnosis: Yes Ambulatory aid: Crutches/cane(s)/walker Intravenous therapy/Heparin lock: Yes Gait/Transferring: Weakness Mental Status: Oriented to own ability/knows own limitations Fall Tailoring Interventions for Patient Safety (TIPS) Fall TIPS initiated with patient: Yes Interventions: Walking Aids: Cane Toileting schedule frequency established Fall TIPS reviewed with patient: Yes Interventions: Walking Aids: Cane Toileting schedule frequency established ======== ENVIRONMENTAL SAFETY MANAGEMENT ======== Implemented safety standards of care: -Mena to unit & environment -Adequate room lighting -Bed in low and locked position -Call light within reach -Personal items within reach -Traffic path in room free of clutter -Non-slip footwear -Upper/half-length side rails up for bed mobility -Sensory aids within reach -Encourage patient to utilize sensory support Additional safety measures: Close to nurses station Increased frequency of rounding ======== NEUROLOGICAL ======== Neurological Orientation: Oriented x4 Level of Consciousness (AVPU): Alert = Appears aware of and responsive to the environment on their own. Follows commands, opens eyes spontaneously, and tracks objects. Affect/behavior: Cooperative Calm ======== NEUROMUSCULAR/NEUROVASCULAR EXTREMITIES ASSESSMENT ======== Strength: Slot Operations Manager Bilateral: Weak Upper Extremity Bilateral: Moves against gravity Lower Extremity Bilateral: Moves against gravity Sensation: Upper Extremity Sensation Bilateral: Decreased Lower Extremity Sensation Bilateral: Decreased Temperature: Upper Extremity Temperature Bilateral: Warm Lower Extremity Temperature Bilateral: Warm ======== CARDIOVASCULAR ======== Heart Sounds: Normal (S1S2) Heart Rate/Rhythm (without monitoring manager): Irregular Cardiac Rhythm Analysis: Atrial Fibrillation Capillary Refill: R Hand: Greater than 3 seconds L Hand: Greater than 3 seconds R Foot: Greater than 3 seconds L Foot: Greater than 3 seconds Peripheral Pulses: R Radial: 2+ Weak L Radial: 2+ Weak R Dorsalis Pedis: 2+ Weak L Dorsalis Pedis: 2+ Weak R Posterior Tibial: 2+ Weak L Posterior Tibial: 2+ Weak R Popliteal: 2+ Weak L Popliteal: 2+ Weak Edema: Present Generalized Location: 1-2+ edema TIMOTHY. BUE, abdomen, lungs ======== RESPIRATORY ======== Respirations: Unlabored Breath Sounds Auscultated: Anterior and posterior Right Upper Lobe: Coarse crackles Left Upper Lobe: Coarse crackles Right Middle Lobe: Coarse crackles Right Lower Lobe: Diminished Left Lower Lobe: Diminished ======== GASTROINTESTINAL ======== Last bowel movement: 04/16/2024 Elimination: Continent Abdominal Description: Distended Protuberant (central obesity) Palpation: Non-tender Bowel Sounds: RUQ: Active LUQ: Active RLQ: Active LLQ: Active ======== GENITOURINARY ======== Elimination: Continent ======= INTEGUMENTARY/SKIN/WOUND - (INCLUDING LUIS) SEE NOTE: VAAES SKIN INPECTION/ASSESSMENT ======= ======= INTEGUMENTARY/SKIN/WOUND - (INCLUDING LUIS) ======= SKIN REINSPECTION/REASSESSMENT SKIN INSPECTION: Skin Color: Pale Skin Temperature: Warm Skin Moisture: Normal Skin Turgor: Elastic (normal/immediate) Luis Skin Assessment: The patient's Luis Scale Score is 19. The patient is considered not at risk for development of pressure ulcers/injuries. Sensory perception -- ability to respond meaningfully to pressure- related discomfort Slightly limited. Moisture -- degree to which skin is exposed to moisture Rarely moist. Activity -- ability to change and control body position Walks occasionally. Mobility -- ability to change and control body position Slightly limited. Nutrition -- usual food intake patterns Adequate. Friction and shear No apparent problem. INTERVENTIONS: The pressure injury interventions were not needed - patient/resident is not at risk. RISK FACTORS THAT INCREASE RISK FOR DEVELOPING PRESSURE INJURIES: The patient/resident has the following: Age over 75 SKIN INTEGRITY: Intact ======== MOBILITY ======== Mobility Status: Independent: Able to stand and step without staff assistance Steady standing balance Equipment utilized: Cane Gait: Steady ======== IV LINES ======== Peripheral IV: Line #1: Assessment: Location: Right, Antecubital Gauge: 20 Dressing Condition: Clean, dry, intact Site Condition: No redness, swelling, pain Line Status: Patent/infusing ======== PSYCHOSOCIAL ======== Type of Emotional Support Provided: Disease process discussion, Hospitalization discussion Additional Comment: Ginette is a fingerstick. He walks to the bathroom with a cane. /arleth/ DYLAN BURNETTE STOKER ERECTOR RN Signed: 04/17/2024 00:52 DYLAN BURNETTE-D [facility] Apr 17, 2024 12:31 AM NURSING E & M NOTE : LOCAL TITLE: NURSING 24 HOUR ORDER VERIFICATION NOTE STANDARD TITLE: NURSING E & M NOTE DATE OF NOTE: APR 17, 2024@00:31 ENTRY DATE: APR 17, 2024@00:31:59 AUTHOR: DYLAN BURNETTE EXP COSIGNER: URGENCY: STATUS: COMPLETED Electronic and hard copy review for orders was completed. Life Sustaining Treatment Orders Cohort: Reminder Term: VA-LIFE SUSTAINING TREATMENT ORDERABLE ITEMS Orderable Item: LST DNR - DO NOT RESUSCITATE 04/15/2024@18:28 Status: active, Start date: 04/15/2024@18:28, Stop date: missing Duration: 2 D Orderable Item: LST NO INVASIVE MECHANICAL VENTILATION 04/15/2024@18:28 Status: active, Start date: 04/15/2024@18:28, Stop date: missing Duration: 2 D LST Note Verified /arleth/ DYLAN BURNETTE STOKER ERECTOR RN Signed: 04/17/2024 00:33 DYLAN BURNETTE [facility] Apr 16, 2024 08:49 PM NURSING INPATIENT NOTE: LOCAL TITLE: [facility] NURSING FREQUENT DOCUMENTATION STANDARD TITLE: NURSING INPATIENT NOTE DATE OF NOTE: APR 16, 2024@20:49 ENTRY DATE: APR 16, 2024@20:49:07 AUTHOR: DYLAN BURNETTE EXP COSIGNER: URGENCY: STATUS: COMPLETED Version 2.4 Charting in accordance with [facility] [place] STANDARD (MSAES) ACUTE INPATIENT/REHABILITATION NURSING ADMISSION SCREENING, ASSESSMENT, AND STANDARDS OF CARE ======== NATIONAL EARLY WARNING SCORE (NEWS) ======== The following vital measurements were used to complete the NEWS. Measurement DT TEMP PULSE RESP BP POx F(C) (L/MIN)(%) 04/16/2024 20:43 97.5(36.4) 76 18 148/79 95 The NEWS total is 1. 1. Temperature (C/F): Score = 0 36.1 - 38.0 C (96.9 - 100.4 F) 2. Pulse: Score = 0 51-90 3. Respirations: Score = 0 12-20 4. Blood Pressure (Only Systolic BP, mmHg): Score = 0 111-219 5. Pulse Oximetry: Score = 1 94% - 95% 6. Supplemental oxygen in use: Score = 0 No 7. AVPU: Score = 0 Alert /arleth/ DYLAN BURNETTE STOKER ERECTOR RN Signed: 04/16/2024 20:50 DYLAN BURNETTE [facility] Apr 16, 2024 01:57 PM INTERNAL MEDICINE NOTE: LOCAL TITLE: MEDICINE SOAP NOTE STANDARD TITLE: INTERNAL MEDICINE NOTE DATE OF NOTE: APR 16, 2024@13:57 ENTRY DATE: APR 16, 2024@13:57:35 AUTHOR: EDGARDO GARCIA COSIGNER: CHERYL HURT URGENCY: STATUS: COMPLETED Overnight:NAEON SUBJECTIVE:Patient feeling better this AM. He did have 5 episodes of diarrhea overnight. He denies any blood in stool and no abdominal cramping or pain. Otherwise denies fevers, chills, CP, SOA. ROS: GEN- No fever/chills CV- No chest pain, palpitations PULM- No cough, SOA GI- No nausea, vomiting, constipation, diarrhea, abdominal pain OBJECTIVE: VITALS: Tc: 97.1 F [36.2 C] (04/16/2024 12:02) HR: 63 (04/16/2024 12:02) RR: 18 (04/16/2024 12:02) BP: 148/73 (04/16/2024 12:02) SpO2: APR 16, 2024@12:02 -- PULSE OXIMETRY: 95 PHYSICIAL EXAM: GENERAL : lying in bed, appears tired. [...] : mood & affect appropriate. No hallucinations. MEDS: Active Inpatient Medications (including Supplies): Active Inpatient Medications Status 1) APIXABAN TAB,ORAL 2.5MG PO BID ACTIVE 2) ATORVASTATIN TAB 20MG PO DAILY ACTIVE 3) FLUOXETINE CAP,ORAL 20MG PO DAILY ACTIVE 4) GABAPENTIN CAP,ORAL 600MG PO BID ACTIVE 5) METOPROLOL TARTRATE *IR* TAB 25MG PO BID ACTIVE 6) PANTOPRAZOLE TAB,EC 40MG PO BID_PPI ACTIVE 7) SPIRONOLACTONE *HANDLING ALERT* TAB 25MG PO DAILY ACTIVE DATA: A/P: Gil Shelby is 78 yo man with PMH significant for CKD3, Afib, DMII, ROWAN, HLD, GERD anxiety/depression here for watery diarrhea. Patient received 2L fluids in ED. C diff negative is negative but we are still awaiting other stool testing to come back. Diarrhea - 5-6 days, 5-8x per day with nightime episodes - poor PO intake - 2L NS in ED - C. Diff negative. Elevated lactoferrin. Pending stool culture. - This is still most likely infectious in nature, but considering inflammatory disease given lactoferrin and chronicity. Plan: - Fluids prn - Consider GI consult to evaluate for inflammatory diarrhea if symptoms do not improve HERVE on CKD3 (improved) - Baseline Cr ~ 1.7-1.8 - Cr 4.5 in ED. Now 3.29 - Likely 2/2 dehydration Plan - Fluids [...] Code Dispo:pending Edgardo Garcia MD PGY-1 Pager: [phone] /es/ EDGARDO GARCIA Signed: 04/16/2024 14:03 /es/ CHERYL HURT MD Hospitalist Cosigned: 04/16/2024 20:52 EDGARDO GARCIA [facility] Apr 16, 2024 01:29 PM NURSING EDUCATION NOTE: LOCAL TITLE: CASE MANAGEMENT DISCHARGE PLANNING EDUCATION NOTE STANDARD TITLE: NURSING EDUCATION NOTE DATE OF NOTE: APR 16, 2024@13:29 ENTRY DATE: APR 16, 2024@13:29:33 AUTHOR: LILI CASE EXP COSIGNER: URGENCY: STATUS: COMPLETED Person receiving education: Patient Understanding of education: Verbalizes understanding HTN: Provided BP cuff, instructed on use, person receiving education verbalized understanding and demonstrated teach back on topics discussed. /arleth/ BEN AMATO, RN INPATIENT [employer]ERGL[employer] MODEL MAKER// Signed: 04/16/2024 13:29 LILI CASE [facility] Apr 16, 2024 11:23 AM NURSING DISCHARGE PLAN: LOCAL TITLE: DISCHARGE PLANNING ASSESSMENT STANDARD TITLE: NURSING DISCHARGE PLAN DATE OF NOTE: APR 16, 2024@11:23 ENTRY DATE: APR 16, 2024@11:23:21 AUTHOR: LILI CASE EXP COSIGNER: URGENCY: STATUS: COMPLETED Admission Diagnosis: Diarrhea, unspecified Anticipated discharge destination: Home Admitted to following team: Lowell Mehta Full assessment indicated Spoke with: Patient Phone number: [phone] Current Services: None Patient lives: Alone Does patient manage their own medications: Yes Does patient take all medicines as prescribed? Yes Is patient independent with dressing and bathing? Yes Are bedrooms and bathrooms accessible to patient: Yes Do you get primary care through the [facility]: Yes Following Medical Supplies patient confirms to have in working condition: Cane , Glucometer , CPAP/BIPAP Equipment needs: Yes needs bp cuff, will order and provide to patient Tobacco/Nicotine: Final Tobacco/Nicotine Assessment for this Admission Do you currently or have you ever used tobacco or nicotine products? Former- tobacco user Does patient have home oxygen? No Does patient any wound care needs? No /es/ BEN AMATO, RN INPATIENT [employer] MODEL MAKER// Signed: 04/16/2024 11:24 LILI CASEJuan Carlos [facility] Apr 16, 2024 10:40 AM NURSING INPATIENT NOTE: LOCAL TITLE: [facility] ACUTE INPATIENT NSG SHIFT ASSESSMENT STANDARD TITLE: NURSING INPATIENT NOTE DATE OF NOTE: APR 16, 2024@10:40 ENTRY DATE: APR 16, 2024@10:40:05 AUTHOR: ZACHERY VASQUEZ EXP COSIGNER: URGENCY: STATUS: COMPLETED Version 2.2 Charting in accordance with [facility] APPROVED [place] STANDARD (MSAES) ACUTE INPATIENT/REHABILITATION NURSING ADMISSION SCREENING, ASSESSMENT, AND STANDARDS OF CARE ======== ASSESSMENT ======== ======== HANDOFF ======== Bedside report and handoff completed Safety check completed ======== PAIN ASSESSMENT ======== Patient's acceptable pain goal: 0 No pain Are you currently experiencing pain? No: Pain Score: 0 ======== MCALLISTER FALL SCALE & TIPS PROGRAM ======== Mcallister Fall Scale: The Mcallister Fall scale was performed and score was 35. This is indicative of moderate risk for falls. History of falling: immediate or within 3 months? No Secondary diagnosis: Yes Ambulatory aid: None/bedrest/nurse assist Intravenous therapy/Heparin lock: Yes Gait/Transferring: Normal/bed rest/immobile Mental Status: Oriented to own ability/knows own limitations Fall Tailoring Interventions for Patient Safety (TIPS) Fall TIPS reviewed with patient: Yes Interventions: Assistance out of bed: Call for assistance before getting out of bed ======== ENVIRONMENTAL SAFETY MANAGEMENT ======== Implemented safety standards of care: -Mena to unit & environment -Adequate room lighting -Bed in low and locked position -Call light within reach -Personal items within reach -Traffic path in room free of clutter -Non-slip footwear -Upper/half length side rails up for bed mobility -Sensory aids within reach -Encourage patient to utilize sensory support ======== NEUROLOGICAL ======== Neurological Orientation: Oriented x4 Level of Consciousness (AVPU): Alert = Appears aware of and responsive to the environment on their own. Follows commands, opens eyes spontaneously, and tracks objects. ======== NEUROMUSCULAR/NEUROVASCULAR EXTREMITIES ASSESSMENT ======== Strength: Slot Operations Manager Bilateral: Strong Upper Extremity Bilateral: Full strength Lower Extremity Bilateral: Full strength Sensation: Upper Extremity Sensation Bilateral: Intact Lower Extremity Sensation Bilateral: Intact Temperature: Upper Extremity Temperature Bilateral: Warm Lower Extremity Temperature Bilateral: Warm ======== CARDIOVASCULAR ======== Heart Sounds: Normal (S1S2) Heart Rate/Rhythm (without monitoring manager): Regular Capillary Refill: All 4 extremities, less than or equal to 3 seconds. Peripheral Pulses: All 4 extremities, 3+ normal. Edema: None ======== RESPIRATORY ======== Respirations: Unlabored Pattern: Regular Breath Sounds Auscultated: Anterior only Left Upper Lobe: Clear Right Upper Lobe: Clear Right Middle Lobe: Clear Left Lower Lobe: Clear Right Lower Lobe: Clear ======== GASTROINTESTINAL ======== Passing flatus Elimination: Continent Abdominal Description: Flat Rounded Palpation: Soft, Non-tender Bowel Sounds: RUQ: Active LUQ: Active RLQ: Active LLQ: Active ======== GENITOURINARY ======== Elimination: Continent ======= INTEGUMENTARY/SKIN/WOUND - (INCLUDING LUIS) SEE NOTE: [facility] SKIN INPECTION/ASSESSMENT ======= ======= INTEGUMENTARY/SKIN/WOUND - (INCLUDING LUIS) ======= SKIN REINSPECTION/REASSESSMENT SKIN INSPECTION: Skin Color: Usual for ethnicity Skin Temperature: Warm Skin Moisture: Normal Skin Turgor: Elastic (normal/immediate) Luis Skin Assessment: The patient's Luis Scale Score is 23. The patient is considered not at risk for development of pressure ulcers/injuries. Sensory perception -- ability to respond meaningfully to pressure-related discomfort No impairment. Moisture -- degree to which skin is exposed to moisture Rarely moist. Activity -- ability to change and control body position Walks frequently. Mobility -- ability to change and control body position No limitation. Nutrition -- usual food intake patterns Excellent. Friction and shear No apparent problem. INTERVENTIONS: The pressure injury interventions were not needed - patient/resident is not at risk. SKIN INTEGRITY: Intact ======== ACTIVITIES OF DAILY LIVING ======== Hygiene ADLs: Oral Care: Non-ventilator patient: Patient teeth brushed: Independently The was educated that poor oral hygiene increases the risk of hospital acquired pneumonia and dental problems like gingivitis and tooth decay. was educated using their preferred method and verbalized understanding. ======== MOBILITY ======== Mobility Status: Independent: Able to stand and step without staff assistance Gait: Steady ======== IV LINES ======== Peripheral IV: Line #1: Assessment: Location: Right, Antecubital Gauge: 20 Dressing Condition: Clean, dry, intact Site Condition: No redness, swelling, pain Line Status: Capped Flushed ======== PSYCHOSOCIAL ======== Type of Emotional Support Provided: 1:1 discussion /arleth/ Zachery CONTRERAS district plant supervisor RN Signed: 04/16/2024 10:44 ZACHERY VASQUEZ-CDD [facility] Apr 16, 2024 09:39 AM NURSING INPATIENT NOTE: LOCAL TITLE: [facility] NURSING FREQUENT DOCUMENTATION STANDARD TITLE: NURSING INPATIENT NOTE DATE OF NOTE: APR 16, 2024@09:39 ENTRY DATE: APR 16, 2024@09:39:32 AUTHOR: ZACHERY VASQUEZ COSIGNER: URGENCY: STATUS: COMPLETED Version 2.4 Charting in accordance with [place] APPROVED [place] STANDARD (MSAES) ACUTE INPATIENT/REHABILITATION NURSING ADMISSION SCREENING, ASSESSMENT, AND STANDARDS OF CARE ======== NATIONAL EARLY WARNING SCORE (NEWS) ======== The following vital measurements were used to complete the NEWS. Measurement DT TEMP PULSE RESP BP POx F(C) (L/MIN)(%) 04/16/2024 08:48 97.8(36.6) 63 18 149/73 94 The NEWS total is 1. 1. Temperature (C/F): Score = 0 36.1 - 38.0 C (96.9 - 100.4 F) 2. Pulse: Score = 0 51-90 3. Respirations: Score = 0 12-20 4. Blood Pressure (Only Systolic BP, mmHg): Score = 0 111-219 5. Pulse Oximetry: Score = 1 94% - 95% 6. Supplemental oxygen in use: Score = 0 No 7. AVPU: Score = 0 Alert /arleth/ Zachery CONTRERAS, district plant supervisor RN Signed: 04/16/2024 09:40 ZACHERY VASQUEZ-[facility] Apr 16, 2024 09:38 AM NURSING E & M NOTE : LOCAL TITLE: NURSING 24 HOUR ORDER VERIFICATION NOTE STANDARD TITLE: NURSING E & M NOTE DATE OF NOTE: APR 16, 2024@09:38 ENTRY DATE: APR 16, 2024@09:38:40 AUTHOR: ZACHERY VASQUEZ EXP COSIGNER: URGENCY: STATUS: COMPLETED Electronic and hard copy review for orders was completed. Life Sustaining Treatment Orders Cohort: Reminder Term: [facility]-LIFE SUSTAINING TREATMENT ORDERABLE ITEMS Orderable Item: LST DNR - DO NOT RESUSCITATE 04/15/2024@18:28 Status: active, Start date: 04/15/2024@18:28, Stop date: missing Duration: 1 D Orderable Item: LST NO INVASIVE MECHANICAL VENTILATION 04/15/2024@18:28 Status: active, Start date: 04/15/2024@18:28, Stop date: missing Duration: 1 D LST Note Verified /arleth/ Zachery CONTRERAS, district plant supervisor RN Signed: 04/16/2024 09:39 ZACHERY VASQUEZCDD [facility] Apr 16, 2024 06:18 AM NURSING INPATIENT NOTE: LOCAL TITLE: [facility] ACUTE INPATIENT NSG SHIFT ASSESSMENT STANDARD TITLE: NURSING INPATIENT NOTE DATE OF NOTE: APR 16, 2024@06:18 ENTRY DATE: APR 16, 2024@06:19 AUTHOR: DIANE MENDEZ COSIGNER: URGENCY: STATUS: COMPLETED Version 2.2 Charting in accordance with [facility] [place] STANDARD (MSAES) ACUTE INPATIENT/REHABILITATION NURSING ADMISSION SCREENING, ASSESSMENT, AND STANDARDS OF CARE ======== REASSESSMENT ======== ======= INTEGUMENTARY/SKIN/WOUND - (INCLUDING LUIS) SEE NOTE: [facility] SKIN INPECTION/ASSESSMENT ======= No changes to previous assessment unless otherwise noted /arleth/ Diane Mendez district plant supervisor RN Signed: 04/16/2024 06:19 DIANE MENDEZ [facility] Apr 16, 2024 12:11 AM NURSING E & M NOTE : LOCAL TITLE: NURSING PLAN OF CARE STANDARD TITLE: NURSING E & M NOTE DATE OF NOTE: APR 16, 2024@00:11 ENTRY DATE: APR 16, 2024@00:11:19 AUTHOR: DIANE MENDEZ EXP COSIGNER: URGENCY: STATUS: COMPLETED NURSING PLAN OF CARE Has ADDENDA PROBLEM: Skin Integrity For Skin Plan of Care see last Skin Assessment/Reassessment Note The Daily Plan was reviewed with patient or family. DIABETES: Target date for review or resolution of problem: Mar Target date must be no less than 1 days and no greater than 3 days. Plan of care must be reviewed every shift. 1. Fluid Volume Deficit: Related to: DKA, HH NS or, hyperglycemia. Goal: Demonstrate adequate hydration evidenced by stable vital signs, palpable peripheral pulse, skin turgor and capillary refill well, individually appropriate urinary output, and electrolyte levels within normal limits. Nursing Interventions: Assess peripheral pulses, capillary refill, skin turgor and mucous membranes, Monitor input and output every shift, Provide fluid therapy as indicated, Monitor temperature, skin color and moisture, Monitor blood glucose and treat hypoglycemia/hyperglycemia and notify MD/provider, Monitor respiratory pattern Evaluation: Patient is a new admit, target date for eval set above FALLS/INJURY POTENTIAL: Fall risk related to Unfamiliar environment, use of cane Target date for review or resolution of problem: Mar Target date must be no less than 1 days and no greater than 3 days. Plan of care must be reviewed every shift. Goals: Increase patients/family awareness of fall risks FLUID VOLUME DEFICIT/RISK FOR BLEEDING: Fluid volume deficit/risk for bleeding related to Diarrhea Target date for review or resolution of problem: Mar Target date must be no less than 1 days and no greater than 3 days. Plan of care must be reviewed every shift. 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 Plan of care must be reviewed every shift. Goals: Afebrile, Maintain intact skin and skin integrity, Maintain optimal fluid balance Interventions: Monitor Vital Signs , Monitor Intake and Output, Flushing precautions maintained, Teach prevention of infection techniques, Ambulate /arleth/ Diane Mendez district plant supervisor RN Signed: 04/16/2024 00:13 04/18/2024 ADDENDUM STATUS: COMPLETED Patient discharged from care to home Goals met/problems resolved /arleth/ Audrey Mixon RN bail bonding agent Signed: 04/18/2024 14:27 DAINE MENDEZ-CDD [facility] Apr 16, 2024 12:07 AM NURSING INPATIENT NOTE: LOCAL TITLE: [facility] ACUTE INPATIENT NSG SHIFT ASSESSMENT STANDARD TITLE: NURSING INPATIENT NOTE DATE OF NOTE: APR 16, 2024@00:07 ENTRY DATE: APR 16, 2024@00:07:28 AUTHOR: DIANE MENDEZ COSIGNER: URGENCY: STATUS: COMPLETED Version 2.2 Charting in accordance with [facility] NENANA STANDARD (MSAES) ACUTE INPATIENT/REHABILITATION NURSING ADMISSION SCREENING, ASSESSMENT, AND STANDARDS OF CARE ======== ASSESSMENT ======== ======== HANDOFF ======== Bedside report and handoff completed Safety check completed ======== ENVIRONMENTAL SAFETY MANAGEMENT ======== Implemented safety standards of care: -Mena to unit & environment -Adequate room lighting -Bed in low and locked position -Call light within reach -Personal items within reach -Traffic path in room free of clutter -Non-slip footwear -Upper/half length side rails up for bed mobility -Sensory aids within reach -Encourage patient to utilize sensory support ======== NEUROLOGICAL ======== Neurological Orientation: Oriented x4 Level of Consciousness (AVPU): Alert = Appears aware of and responsive to the environment on their own. Follows commands, opens eyes spontaneously, and tracks objects. Affect/behavior: Cooperative Calm Supplemental Neurological Assessment: Horicon Coma Scale: Eye Opening Response: Eyes open spontaneously - 4 points Best Verbal Response: Oriented - 5 points Best Motor Response: Obeys commands - 6 points Total Score Horicon: 15 ======== NEUROMUSCULAR/NEUROVASCULAR EXTREMITIES ASSESSMENT ======== Strength: Slot Operations Manager Bilateral: Strong Upper Extremity Bilateral: Full strength Lower Extremity Bilateral: Full strength Sensation: Upper Extremity Sensation Bilateral: Intact Lower Extremity Sensation Bilateral: Intact Temperature: Upper Extremity Temperature Bilateral: Warm Lower Extremity Temperature Bilateral: Warm ======== CARDIOVASCULAR ======== Heart Sounds: Normal (S1S2) Heart Rate/Rhythm (without monitoring manager): Regular Capillary Refill: All 4 extremities, less than or equal to 3 seconds. Peripheral Pulses: All 4 extremities, 3+ normal. Edema: Present Pitting Location: Biilateral ankles Measurement: 1+ Barely detectable impression when finger is pressed into skin. ======== RESPIRATORY ======== Respirations: Unlabored Pattern: Regular Breath Sounds Auscultated: Anterior and posterior Left Upper Lobe: Clear Right Upper Lobe: Clear Right Middle Lobe: Clear Left Lower Lobe: Clear Right Lower Lobe: Clear ======== GASTROINTESTINAL ======== Last bowel movement: 04/15/2024 Bowel movement reported by patient-unwitnessed Abdominal Description: Rounded Protuberant (central obesity) Palpation: Non-tender Bowel Sounds: RUQ: Active LUQ: Active RLQ: Active LLQ: Active ======== GENITOURINARY ======== Elimination: Continent ======= INTEGUMENTARY/SKIN/WOUND - (INCLUDING LUIS) SEE NOTE: [facility] SKIN INPECTION/ASSESSMENT ======= ======= INTEGUMENTARY/SKIN/WOUND - (INCLUDING LUIS) ======= INITIAL SKIN INSPECTION/ASSESSMENT SKIN INSPECTION: Skin Color: Usual for ethnicity Skin Temperature: Warm Skin Moisture: Normal Skin Turgor: Elastic (normal/immediate) Luis Skin Assessment: The patient's Luis Scale Score is 22. The patient is considered not at risk for development of pressure ulcers/injuries. Sensory perception -- ability to respond meaningfully to pressure- related discomfort No impairment. Moisture -- degree to which skin is exposed to moisture Rarely moist. Activity -- ability to change and control body position Walks frequently. Mobility -- ability to change and control body position No limitation. Nutrition -- usual food intake patterns Adequate. Friction and shear No apparent problem. INTERVENTIONS: The pressure injury interventions were not needed - patient/resident is not at risk. RISK FACTORS THAT INCREASE RISK FOR DEVELOPING PRESSURE INJURIES The patient/resident does not have any additional risk factors. SKIN INTEGRITY: Intact ======== ACTIVITIES OF DAILY LIVING ======== Hygiene ADLs: Dressing: Upper Body: Independent Lower Body: Independent Oral Care: Non-ventilator patient: Patient teeth brushed: Independently ======== MOBILITY ======== Mobility Status: Independent: Able to stand and step without staff assistance Steady standing balance Equipment utilized: Cane Gait: Steady ======== IV LINES ======== Peripheral IV: Present on admission: Line #1: Location: Right, Antecubital Gauge: 20 ======== PSYCHOSOCIAL ======== Type of Emotional Support Provided: 1:1 discussion, Anticipated outcomes, Treatment discussion, Ventilation of feelings encouraged /es/ Diane Mendez district plant supervisor RN Signed: 04/16/2024 00:11 DIANE MENDEZ-MAUREEN [facility] Apr 16, 2024 12:03 AM NURSING ADMISSION EVALUATION NOTE: LOCAL TITLE: [facility] ACUTE INPATIENT NSG ADMISSION S STANDARD TITLE: NURSING ADMISSION EVALUATION NOTE DATE OF NOTE: APR 16, 2024@00:03 ENTRY DATE: APR 16, 2024@00:03:29 AUTHOR: DIANE MENDEZ EXP COSIGNER: URGENCY: STATUS: COMPLETED ======= ALLERGY/ADVERSE DRUG REACTION (ADR) REVIEW (MRT5) ======= FACILITY ALLERGY/ADR -------- [facility] NO KNOWN ALLERGIES [facility] No Known Allergies Allergy/Adverse Drug Reaction Review to be conducted by: Nurse: Results of Allergy/ADR Review: Allergy/Adverse Drug Reaction list confirmed. ====== GENERAL INFORMATION ====== Admission information given by: Patient Is there a legal guardian/conservator? No Preferred language for discussing healthcare: Egyptian Preferred mode of communication: Verbal Written Items at Bedside: Visual Aids: Standard Glasses Other: Cellphone ======= INFECTIOUS DISEASE RISK SCREEN ======= Travel Screen: Have you traveled within the [place] within the last 21 days? No Have you traveled outside the [place] within the last 21 days? No Within the last 14 days, have you had: No known exposure Other Exposure to Infectious Disease: No known exposure Patient reported the following symptoms: No Symptoms Present History of Multiple Drug Resistant Organism (MDRO): No ======= NUTRITION SCREENING ======= Malnutrition Screening Weight (Previous 6 months): Measurement DT WEIGHT LB(KG)[BMI] 04/09/2024 10:51 317.4(143.97)[42*] Lost weight recently without trying: Yes: Amount weight lost: 1-5 kg (2-13 lbs) (1 point) Have you been eating poorly because of decreased appetite? No (0 points) Total Score: 1 Other Nutrition Screening Questions: The patient does not report any concerns with their teeth that would make it difficult to eat. The patient does not report overeating to the point of feeling sick or making themselves vomit. The patient denies gaining 10 lbs.(4.5 kgs) or more in the past 3 months without trying. The patient denies having any food allergies, intolerance, special dietary needs, or ethnic, cultural or hindu preferences that would affect their dietary needs. Food Insecurity Screening Within the past 12 months, you worried whether your food would run out before you got money to buy more. Never true Within the past 12 months, the food you bought just did not last you and you did not have the money to get more. Never true Food Insecurity Disposition: ====== RISK SCREENINGS ====== Alcohol Screen: Screen to be completed by: Nurse: SCREEN FOR ALCOHOL (AUDIT-C) An alcohol screening test (AUDIT-C) was negative (score=0). 1. How often did you have a drink containing alcohol in the past year? Consider a drink to be a 12 ounce can or bottle of regular beer, 8 ounces of malt liquor, a 5 ounce glass of table wine, or a 1.5 ounce shot of liquor (like scotch, gin, or vodka). Never 2. How many drinks containing alcohol did you have on a typical day when you were drinking in the past year? Response not required due to responses to other questions. 3. How often did you have six or more drinks on one occasion in the past year? Response not required due to responses to other questions. *Does the patient consume alcohol? No Tobacco Use: Former - tobacco user Do you currently or have you ever used alternative nicotine products? No Substance Use Assessment: *Do you use any recreational drugs or narcotics (prescription or non-prescription)? No ======= RISK OF WANDERING ======= The patient does not have a history of wandering. The patient does not have a history of elopement. The patient is not expressing a desire to leave. ===== SUICIDE SCREEN ===== Result of C-SSRS screener done was NEGATIVE. C-SSRS Screen is Negative ====== EXPOSURE TO VIOLENCE AND ABUSE PRE-SCREEN ====== Are you worried for your safety, that you will be hurt or harmed? No Has anyone tried to force you to sign papers or use your money against your will? No ====== POST TRAUMATIC STRESS DISORDER CARE CONSIDERATIONS ====== To minimize a startle response, what is your preference on how best to awaken you? No preference ======= REPRODUCTIVE & SEXUAL HEALTH ======= Do you have any sexual or reproductive concerns you would like your healthcare team to be aware of? No ====== ADVANCE DIRECTIVE ====== Notification of Rights Related to Advance Directives: Written notification provided. *The patient wishes to receive information about or assistance with Advance Care Planning and/or Advance Directive: No ===== SPIRITUALITY ===== Are there hindu practices or spiritual concerns you want the fraud manager, your provider, and other health care team members to know? No ====== ANTICIPATED DISCHARGE NEEDS ====== Where do you live? Housing owned/rented by : Method of transportation upon discharge: Private Vehicle: Are there any anticipated barriers to discharge? No ===== EDUCATIONAL NEEDS/LEARNING STYLE ===== Barriers to learning: None evident Patient learning style preferences: 1:1 ====== VISITOR INFORMATION ====== Will you have a primary support person while in the hospital? No Patient's Visitor Restriction preferences: No Privacy Review: Discussed with patient who may receive health information and the need for that identified person to provide a passcode for the staff to discuss. Passcode provided to patient ======== MCALLISTER FALL SCALE & TIPS PROGRAM ======== Mcallister Fall Scale: The Mcallister Fall scale was performed and score was 50. This is indicative of high risk for falls. History of falling: immediate or within 3 months? No Secondary diagnosis: Yes Ambulatory aid: Crutches/cane(s)/walker Intravenous therapy/Heparin lock: Yes Gait/Transferring: Normal/bed rest/immobile Mental Status: Oriented to own ability/knows own limitations Fall Tailoring Interventions for Patient Safety (TIPS) Fall TIPS initiated with patient: Yes Interventions: Communicate recent fall or risk of harm Walking Aids: Cane ======= ASPIRATION RISK ASSESSMENT AND SWALLOW SCREEN ======= Aspiration Risk(s): Screening complete. No aspiration risk identified. Bedside Swallow Screen not indicated. ======== PAIN ASSESSMENT ======== Patient's acceptable pain goal: 0 No pain Are you currently experiencing pain? No: Pain Score: 0 /arleth/ Diane Mendez district plant supervisor RN Signed: 04/16/2024 00:07 DIANE MENDEZ-CDD [facility] Apr 16, 2024 12:02 AM NURSING E & M NOTE : LOCAL TITLE: NURSING 24 HOUR ORDER VERIFICATION NOTE STANDARD TITLE: NURSING E & M NOTE DATE OF NOTE: APR 16, 2024@00:02 ENTRY DATE: APR 16, 2024@00:02:15 AUTHOR: DIANE MENDEZ EXP COSIGNER: URGENCY: STATUS: COMPLETED Electronic and hard copy review for orders was completed. Life Sustaining Treatment Orders Cohort: Reminder Term: VA-LIFE SUSTAINING TREATMENT ORDERABLE ITEMS Orderable Item: LST DNR - DO NOT RESUSCITATE 04/15/2024@18:28 Status: active, Start date: 04/15/2024@18:28, Stop date: missing Duration: 1 D Orderable Item: LST NO INVASIVE MECHANICAL VENTILATION 04/15/2024@18:28 Status: active, Start date: 04/15/2024@18:28, Stop date: missing Duration: 1 D LST Note Verified Comments: DNR/DNI status verified /chema Mendez district plant supervisor RN Signed: 04/16/2024 00:02 DIANE MENDEZD [facility] Apr 16, 2024 12:02 AM NURSING INPATIENT NOTE: LOCAL TITLE: [facility] NURSING FREQUENT DOCUMENTATION STANDARD TITLE: NURSING INPATIENT NOTE DATE OF NOTE: APR 16, 2024@00:02 ENTRY DATE: APR 16, 2024@00:02:46 AUTHOR: DIANE MENDEZ COSIGNER: URGENCY: STATUS: COMPLETED Version 2.4 Charting in accordance with [place] APPROVED [place] STANDARD (MSAES) ACUTE INPATIENT/REHABILITATION NURSING ADMISSION SCREENING, ASSESSMENT, AND STANDARDS OF CARE ======== NATIONAL EARLY WARNING SCORE (NEWS) ======== The following vital measurements were used to complete the NEWS. Measurement DT TEMP PULSE RESP BP POx F(C) (L/MIN)(%) 04/15/2024 23:34 97.8(36.6) 73 18 144/80 95 The NEWS total is 1. 1. Temperature (C/F): Score = 0 36.1 - 38.0 C (96.9 - 100.4 F) 2. Pulse: Score = 0 51-90 3. Respirations: Score = 0 12-20 4. Blood Pressure (Only Systolic BP, mmHg): Score = 0 111-219 5. Pulse Oximetry: Score = 1 94% - 95% 6. Supplemental oxygen in use: Score = 0 No 7. AVPU: Score = 0 Alert /arleth/ Diane Mendez district plant supervisor RN Signed: 04/16/2024 00:03 DIANE MENDEZD [facility] Apr 15, 2024 11:25 PM ADVANCE DIRECTIVE DISCUSSION: LOCAL TITLE: ADMISSION ADVANCED DIRECTIVE NOTE STANDARD TITLE: ADVANCE DIRECTIVE DISCUSSION DATE OF NOTE: APR 15, 2024@23:25 ENTRY DATE: APR 15, 2024@23:25:07 AUTHOR: EMERSON KNAPP EXP COSIGNER: URGENCY: STATUS: COMPLETED Patient/Family received copy of Your Right to Decide : Yes Do you have an advance directive? No, patient does not have an advance directive. Would you like to make an advance directive? No, patient does not want to make an advance directive. Would you like more information regarding an advance directive? No, does not want more info on advance directive. Based upon Treatment Team Assignment, an ID signer alert sent to Electric Locom[employer] Firer/Fireman for Advance Directive Status: Alert sent to: Name of Charge Nurse to be identified as signer: COMMENTS: /arleth/ EMERSON KNAPP Medical Support Asst Signed: 04/15/2024 23:25 EMERSON KNAPP-MAUREEN [facility] Apr 15, 2024 11:24 PM ADMINISTRATIVE NOT E: LOCAL TITLE: ESSENTIAL MEDICATIONS LIST FOR REVIEW (EMLR) STANDARD TITLE: ADMINISTRATIVE NOTE DATE OF NOTE: APR 15, 2024@23:24 ENTRY DATE: APR 15, 2024@23:24:50 AUTHOR: EMERSON KNAPP EXP COSIGNER: URGENCY: STATUS: COMPLETED Active and Recently Outpatient Medications (excluding Supplies): Active Outpatient Medications Status 1) APIXABAN 5MG TAB TAKE ONE-HALF TABLET BY MOUTH TWICE ACTIVE A DAY TO THIN BLOOD -CALL ANTICOAGULATION CLINIC [phone] WITH QUESTIONS OR CONCERNS 2) ATORVASTATIN CALCIUM 40MG TAB TAKE ONE-HALF TABLET BY ACTIVE MOUTH DAILY FOR CHOLESTEROL 3) CHLORTHALIDONE 25MG TAB TAKE ONE TABLET BY MOUTH ACTIVE DAILY FOR BLOOD PRESSURE 4) FLUOXETINE HCL 20MG CAP TAKE ONE CAPSULE BY MOUTH ACTIVE DAILY FOR MOOD 5) GABAPENTIN 300MG CAP TAKE TWO CAPSULES BY MOUTH TWICE ACTIVE A DAY FOR NERVE PAIN 6) [id number] PENTOXIFYLLINE SA 400MG/PBO TAKE ONE ACTIVE TABLET [...] BY MOUTH ACTIVE DAILY FOR BLOOD PRESSURE/HEART Inactive Outpatient Medications Status 1) CHLORTHALIDONE 25MG TAB TAKE ONE TABLET BY MOUTH DAILY FOR BLOOD PRESSURE 2) [id number] PENTOXIFYLLINE SA 400MG/PBO TAKE ONE TABLET BY MOUTH TWICE A DAY WITH FOOD. SWALLOW WHOLE-DO NOT CHEW, CRUSH OR CUT 13 Total Medications Allergies: local and remote Patient has answered NKA No Remote Allergy/ADR Data available for this patient Review of medications include: Patient allergies (Remote and Local) and active and pending prescriptions dispensed from this [facility] (local) and dispensed from another [facility] or [facility] facility (remote and pending) as well as local inpatient orders (pending and active) and clinic medications (IMOs), locally documented non-VA medications and local prescriptions that have or been discontinued in the past 90 days. With the exception of Allergies, if a category is not listed below, it means there were no relevant medications for the patient. MRT5-Local & Remote Allergies Inpatient Active/Pending: SODIUM CHLORIDE 0.9% INJ,SOLN Solution: SODIUM CHLORIDE 0.9% (1000 ML) Issued: 04/15/24 Expires: 04/15/24 Status: DISCONTINUED SODIUM CHLORIDE 0.9% INJ,SOLN Solution: SODIUM CHLORIDE 0.9% (1000 ML) Issued: 04/15/24 Expires: 04/15/24 Status: DISCONTINUED No remote medications found. Outpatient Active/Pending: APIXABAN 5MG TAB Directions: TAKE ONE-HALF TABLET BY MOUTH TWICE A DAY TO THIN BLOOD -CALL ANTICOAGULATION CLINIC [phone] WITH QUESTIONS OR CONCERNS Quantity: 90 for 90 days Issued: 04/10/24 Filled: 04/16/24 Expires: 04/11/25 Refills: 3 Status: ACTIVE ATORVASTATIN CALCIUM 40MG TAB Directions: [...] 02/29/24 Expires: 10/08/24 Refills: 0 Status: ACTIVE [id number] PENTOXIFYLLINE SA 400MG/PBO Directions: TAKE ONE TABLET [...] 0 Status: ACTIVE No remote medications found. No local medications found. No remote medications found. Inpatient Nonva Medications: No local medications found. Inpatient : No local medications found. No remote medications found. Inpatient Discontinued: SODIUM CHLORIDE 0.9% INJ,SOLN Solution: SODIUM CHLORIDE 0.9% (1000 ML) Issued: 04/15/24 Expires: 04/15/24 Status: DISCONTINUED SODIUM CHLORIDE 0.9% INJ,SOLN Solution: SODIUM CHLORIDE 0.9% (1000 ML) Issued: 04/15/24 Expires: 04/15/24 Status: DISCONTINUED No remote medications found. /arleth/ EMERSON KNAPP Medical Support Asst Signed: 04/15/2024 23:25 EMERSON KNAPP-MAUREEN [facility]
--- OUTSIDE RECORDS SUMMARY | 2024-04-16 04:30 | XMS_ITS | Encounter Summary ---
Author Name [facility] [place] [facility] [place] [place] Address [address] [place] [address] Care Team Providers Care Corporate Statistical Financial Analyst Name Role Phone ESTELAMAYLIN Primary Care Provider Unavailabl e Insurance Providers: [...] RISSA SHIRLEY Mar 04, 2012 RISSA RODRIGUEZ [id number] HERON,NORMA WELLINGTON [facility]IENT [facility] ADVANT[facility](W NR) Jul 30, 2017 [id number] HERON,NORMA WELLINGTON [facility] MEDICARE ADVANTAGE [facility] (WNR) Jul 30, 2017 [id number] HERON,NORMA WELLINGTON [facility]IENT [facility] ORGANIZ MEDIC ARE BRAULIO Connell Jul 30, 2012 [id number] NORMA SHELBY PATIENT MEDICARE (WNR) MEDICARE (M) PART A Jul 30, 2017 PART A [id number] NORMA SHELBY PATIENT MEDICARE (WNR) MEDICARE (M) PART B Jul 30, 2017 PART B [id number] NORMA SHELBY PATIENT MEDICARE PART D (WNR) PRESCRIPT ION PART D Jul 30, 2017 PART D [id number] NORMA SHELBY PATIENT MEDICARE PART D (WNR) MEDICARE (M) PART D Jul 30, 2017 PART D [id number] NORMA SHELBY PATIENT MEDICARE PART D (WNR) MEDICARE (M) PART D Jul 30, 2017 PART D [id number] NORMA SHELBY PATIENT MEDICARE PART D (WNR) MEDICARE (M) PART D Jul 30, 2012 PART D [id number] NORMA SHELBY PATIENT Selected Encounter This section includes the information on record at [place] for the Encounter. Date/Time Encounter Type Encounter Description Reason Provider Source Apr 16, 2024 08:30 AM CASE MANAGEMENT SOCIAL WORK SERVICE ICD-10-CM Z78.9 Other specified health status TRUDY EDOUARD Encounter Template Text not used by [place] Assessments - Encounter Diagnoses This section includes the primary and secondary diagnoses documented for the Encounter. Date/Time Primary/Secondary Diagnosis Diagnosis Name Provider Source Apr 16, 2024 11:29 AM PRIMARY Other specified health status [facility] Plan of Treatment: Future Appointments (+ 6 [...] 2024 02:15 PM [facility] May 09, 2024 10:30 AM [facility] May 20, 2024 11:00 AM [facility] MEDICINE [facility] Jun 25, 2024 09:45 AM AMBULATORY - MEDICINE [facility] Jul 08, 2024 01:40 PM AMBULATORY - SURGERY [facility] Sep 16, 2024 01:20 PM AMBULATORY - MEDICINE [facility] Active, Pending, and Scheduled Orders [...] PM Laboratory - Chemi stry Order CBC/PLT SPH-[id number] BLOOD STAT WC ONCE [facility] Lab Results: +/- 30 days of the encounter This section includes the Chemistry and Hematology Lab Results on record with [place] for the patient. Radiology Reports and Pathology Reports are provided separately, in subsequent sections. Lab Results This section contains the Chemistry/Hematology Results that were resulted 30 days before or 30 daysafter the date of the Encounter. Date/Time Source Result Type Result - Unit Interpretation Reference Range Specimen Type Comment May 05, 2024 02:08 PM [facility] PANEL 1 PLASMA Specimen Type: PLASMA [...] Apr 21, 2024 11:25 AM Reporting Lab: [address] [address] Performing Lab: [address] [address] CREATININE 2.39 mg/dL H 0.72-1.25 UREA NITROGEN 30 mg/dL H 9-25 GLUCOSE 126 mg/dL H 74-100 SODIUM 140 mmol/L 136-145 POTASSIUM 5.0 mmol/L 3.5-5.1 CHLORIDE 110 mmol/L H 98-107 CO2 21 mmol/L L 22-29 CALCIUM 9.9 mg/dL 8.4-10.2 ANION GAP 9 meq/L 3-19 eGFR (CKD-EPI) Apr 18, 2024 11:13 AM [facility] GLUCOSE-HAND MONITOR CAPILLARY Specime n Type: CAPILLARY Comment: Test performed by: [id number] Meter #: [id number] Ordering Provider: CHERYL HURT Report Released Date/Time: Apr 18, 2024 11:44 AM Reporting Lab: [address] [address] Performing Lab: [facility] [address] [facility] [address] GLUCOSE-HAND MONITOR 110 mg/dL H 71-99 Apr 18, 2024 07:58 AM [facility] PANEL 1 PLASMA Specimen Type: PLASM [...] Apr 17, 2024 03:26 PM Reporting Lab: [place] [address] Performing Lab: [address] [address] CREATININE 2.05 mg/dL H 0.72-1.25 UREA NITROGEN 28 mg/dL H 9-25 GLUCOSE 177 mg/dL H 74-100 SODIUM 137 mmol/L 136-145 POTASSIUM 4.3 mmol/L 3.5-5.1 CHLORIDE 109 mmol/L H 98-107 CO2 21 mmol/L L 22-29 CALCIUM 8.6 mg/dL 8.4-10.2 ANION GAP 7 meq/L 3-19 eGFR (CKD-EPI) 32 Apr 18, 2024 07:00 AM [facility] GLUCOSE-HAND MONITOR CAPILLARY Specime n Type: CAPILLARY Comment: CARLOS RN notified Test performed by: [id number] Meter #: [id number] Ordering Provider: CHERYL HURT Report Released Date/Time: Apr 18, 2024 07:22 AM Reporting Lab: [place] [phone] Performing Lab: [place] [phone] GLUCOSE-HAND MONITOR 127 mg/dL H 71-99 Apr 17, 2024 08:26 PM [facility] GLUCOSE-HAND MONITOR CAPILLARY Specime n Type: CAPILLARY Comment: CARLOS RN notified Test performed by: [id number] Meter #: [id number] Ordering Provider: CHERYL HURT Report Released Date/Time: Apr 17, 2024 09:24 PM Reporting Lab: [place] [phone] Performing Lab: [address] [address] GLUCOSE-HAND MONITOR 164 mg/dL H 71-99 Apr 17, 2024 04:45 PM [facility] GLUCOSE-HAND MONITOR CAPILLARY Specime n Type: CAPILLARY Comment: CARLOS RN notified Test performed by: [id number] Meter #: [id number] Ordering Provider: CHERYL HURT Report Released Date/Time: Apr 17, 2024 05:19 PM Reporting Lab: [address] [address] Performing Lab: [address] [address] GLUCOSE-HAND MONITOR 161 mg/dL H Apr 17, 2024 12:11 PM [facility] GLUCOSE-HAND MONITOR CAPILLARY Specime n Type: CAPILLARY Comment: Test performed by: [id number] Meter #: [id number] Ordering Provider: CHERYL HURT Report Released Date/Time: Apr 17, 2024 12:46 PM Reporting Lab: [facility] [address] [place] [address] Performing Lab: [facility] [address] [facility] [address] GLUCOSE-HAND MONITOR 116 mg/dL H Apr 17, 2024 07:33 AM [facility] PANEL 1 PLASMA Specimen Type: PLASM [...] Apr 16, 2024 03:40 PM Reporting Lab: [place] [phone] Performing Lab: [place] [address] CREATININE 2.39 mg/dL H 0.72-1.25 UREA NITROGEN 35 mg/dL H 9-25 GLUCOSE 117 mg/dL H 74-100 SODIUM 138 mmol/L 136-145 POTASSIUM 4.3 mmol/L 3.5-5.1 CHLORIDE 110 mmol/L H 98-107 CO2 22 mmol/L 22-29 CALCIUM 8.7 mg/dL 8.4-10.2 ANION GAP 6 meq/L 3-19 eGFR (CKD-EPI) Apr 17, 2024 07:33 AM [facility] CBC/PLT BLOOD Specimen Type: BLOOD No comment entered. Ordering Provider: EDGARDO GARCIA Report Released Date/Time: Apr 16, 2024 03:40 PM Reporting Lab: [address] [address] Performing Lab: [place] [phone] WBC 8.8 10*3/uL 5.0-10.0 RBC 4.05 10*6/uL L 4.6-6.2 HGB 11.4 g/dL L 14.0-18.0 HCT 36.1 L 42.0-52.0 MCV 89.1 fL 80.0-94.0 MCH 28.1 pg 27.0-31.0 MCHC 31.6 g/dL L 32.0-36.0 PLT 165 10*3/uL 150-450 MPV 10.4 fL 9.0-13.1 RDW 13.4 11.0-16.0 NRBC 0.0 0.0-0.0 Apr 17, 2024 06:55 AM [facility] GLUCOSE-HAND MONITOR CAPILLARY Specime n Type: CAPILLARY Comment: CARLOS RN notified Test performed by: [id number] Meter #: [id number] Ordering Provider: CHERYL HURT Report Released Date/Time: Apr 17, 2024 07:16 AM Reporting Lab: [address] [address] Performing Lab: [place] [phone] GLUCOSE-HAND MONITOR 125 mg/dL H Apr 16, 2024 08:45 PM [facility] GLUCOSE-HAND MONITOR CAPILLARY Specime n Type: CAPILLARY Comment: CARLOS RN notified Test performed by: [id number] Meter #: [id number] Ordering Provider: CHERYL HURT Report Released Date/Time: Apr 16, 2024 10:14 PM Reporting Lab: [place] [phone] Performing Lab: [place] [phone] GLUCOSE-HAND MONITOR 138 mg/dL H Apr 16, 2024 04:48 PM [facility] GLUCOSE-HAND MONITOR CAPILLARY Specime n Type: CAPILLARY Comment: CARLOS RN notified Test performed by: [id number] Meter #: [id number] Ordering Provider: CHERYL HURT Report Released Date/Time: Apr 16, 2024 05:42 PM Reporting Lab: [place] [phone] Performing Lab: [place] [phone] GLUCOSE-HAND MONITOR 110 mg/dL H Apr 16, 2024 12:03 PM [facility] GLUCOSE-HAND MONITOR CAPILLARY Specime n Type: CAPILLARY Comment: CARLOS RN notified Test performed by: [id number] Meter #: [id number] Ordering Provider: CHERYL HURT Report Released Date/Time: Apr 16, 2024 01:01 PM Reporting Lab: [place] [phone] Performing Lab: [place] [phone] GLUCOSE-HAND MONITOR 126 mg/dL H Apr 16, 2024 08:10 AM [facility] CBC/PLT BLOOD Specimen Type: BLOOD No comment entered. Ordering Provider: EDGARDO GARCIA Report Released Date/Time: Apr 15, 2024 11:24 PM Reporting Lab: [address] [address] Performing Lab: [address] [address] WBC 9.5 10*3/uL 5.0-10.0 RBC 4.19 10*6/uL L 4.6-6.2 HGB 11.6 g/dL L 14.0-18.0 HCT 37.0 L 42.0-52.0 MCV 88.3 fL 80.0-94.0 MCH 27.7 pg 27.0-31.0 MCHC 31.4 g/dL L 32.0-36.0 PLT 163 10*3/uL 150-450 MPV 10.4 fL 9.0-13.1 RDW 13.5 11.0-16.0 NRBC 0.0 0.0-0.0 Apr 16, 2024 08:10 AM [facility] PANEL 1 PLASMA Specimen Type: PLASM [...] Apr 15, 2024 11:24 PM Reporting Lab: [address] [address] Performing Lab: [address] [address] CREATININE 3.29 mg/dL H 0.72-1.25 UREA NITROGEN 40 mg/dL H 9-25 GLUCOSE 151 mg/dL H 74-100 SODIUM 136 mmol/L 136-145 POTASSIUM 3.7 mmol/L 3.5-5.1 CHLORIDE 109 mmol/L H 98-107 CO2 18 mmol/L L 22-29 CALCIUM 8.5 mg/dL 8.4-10.2 ANION GAP 9 meq/L 3-19 eGFR (CKD-EPI) Apr 16, 2024 06:43 AM [facility] GLUCOSE-HAND MONITOR CAPILLARY Specime n Type: CAPILLARY Comment: Test performed by: [id number] Meter #: [id number] Ordering Provider: CHERYL HURT Report Released Date/Time: Apr 16, 2024 07:14 AM Reporting Lab: [address] [address] Performing Lab: [address] [address] GLUCOSE-HAND MONITOR 111 mg/dL H 71-99 Apr 16, 2024 06:00 AM [facility] MRSA SURVL NARES DNA NARES Specime [...] Apr 15, 2024 11:24 PM Reporting Lab: [address] [address] Performing Lab: [address] [address] MRSA SURVL NARES DNA Negative Negative Apr 15, 2024 11:44 PM [facility] GLUCOSE-HAND MONITOR CAPILLARY Specime n Type: CAPILLARY Comment: Test performed by: [id number] Meter #: [id number] Ordering Provider: CHERYL HURT Report Released Date/Time: Apr 16, 2024 12:31 AM Reporting Lab: [address] [address] Performing Lab: [address] [address] GLUCOSE-HAND MONITOR 149 mg/dL H 71-99 Apr 15, 2024 07:21 PM [facility] OVA AND PARASITE EXAM, GIARDIA (LC) FECES Specimen Type: FECES Comment: No ova, cysts, or parasites seen. . One negative specimen does not rule out the possibility of a parasitic infection. Ordering Provider: CARRINGTON GRISSOM Report Released Date/Time: Apr 15, 2024 06:03 PM Reporting Lab: [address] [address] Performing Lab: [address] [address] .OVA & PARASITE EXAM (LC) Comment .GIARDIA EIA (LC) Negative Negative Apr 15, 2024 07:21 PM [facility] C DIFF TOXIN BY PCR/REFLEX TO EIA FECES Specimen Type: FECES Comment: This [employer]ep[employer] Xpert C DIFF PCR Assay targets the [...] Apr 15, 2024 06:03 PM Reporting Lab: [address] Performing Lab: [place] [phone] C DIFF TOX B GENE PCR Negative Negative Apr 15, 2024 07:21 PM [facility] WBC FECES (LACTOFERRIN) FECES Spec imen Type: FECES No comment entered. Ordering Provider: CARRINGTON GRISSOM Report Released Date/Time: Apr 15, 2024 06:03 PM Reporting Lab: [place] [phone] Performing Lab: [place] [phone] WBC FECES (LACTOFERRIN) POSITIVE Negativ e Apr 15, 2024 05:53 PM [facility] URINE LYTES URINE Specimen Type : URINE No comment entered. Ordering Provider: CARRINGTON GRISSOM Report Released Date/Time: Apr 15, 2024 04:12 PM Reporting Lab: [place] [phone] Performing Lab: [place] [phone] SODIUM 42 mmol/L POTASSIUM 20.7 mmol/L CHLORIDE 28 mmol/L Apr 15, 2024 05:53 PM [facility] URINALYSIS URINE Specimen Type : URINE No comment entered. Ordering Provider: CARRINGTON GRISSOM Report Released Date/Time: Apr 15, 2024 02:03 PM Reporting Lab: [place] [phone] Performing Lab: [place] [phone] URINE COLOR Yellow Colorless-Yellow APPEARANCE CLOUDY H [...] H None Apr 15, 2024 05:26 PM [facility] MRSA SURVL NARES DNA NARES Specime [...] Apr 15, 2024 04:28 PM Reporting Lab: [address] [address] Performing Lab: [address] [address] MRSA SURVL NARES DNA Negative Negative Apr 15, 2024 02:41 PM [facility] LACTIC ACID PLASMA Specimen Type : PLASMA No comment entered. Ordering Provider: CARRINGTON GRISSOM Report Released Date/Time: Apr 15, 2024 02:03 PM Reporting Lab: [address] [address] Performing Lab: [address] [address] LACTIC ACID 1.4 mmol/L 0.5-2.2 Apr 15, 2024 02:41 PM [facility] LIPASE PLASMA Specimen Type: PLASM A [...] Apr 15, 2024 02:03 PM Reporting Lab: [address] [address] Performing Lab: [address] [address] LIPASE 11 U/L 8Apr 15, 2024 02:41 PM [facility] PANEL 2 PLASMA Specimen Type: PLASM [...] Apr 15, 2024 02:03 PM Reporting Lab: [address] [address] Performing Lab: [address] [address] TOTAL PROTEIN 7.2 g/dL 6.4-8.3 ALBUMIN 3.8 g/dL 3.5-5.2 TOTAL BILIRUBIN 0.6 mg/dL 0.2-1.2 AST 21 U/L 5-34 ALT 18 U/L 0-55 ALK PHOS 60 U/L 40-150 BILIRUBIN-DIRECT 0.2 mg/dL 0.0-0.5 Apr 15, 2024 02:41 PM [facility] PANEL 1 PLASMA Specimen Type: PLASM A [...] Apr 15, 2024 02:03 PM Reporting Lab: [address] [address] Performing Lab: [address] [address] CREATININE 4.52 mg/dL H 0.72-1.25 UREA NITROGEN 41 mg/dL H 9-25 GLUCOSE 110 mg/dL H 74-100 SODIUM 135 mmol/L L 136-145 POTASSIUM 3.9 mmol/L 3.5-5.1 CHLORIDE 104 mmol/L 98-107 CO2 20 mmol/L L 22-29 CALCIUM 8.8 mg/dL 8.4-10.2 ANION GAP 11 meq/L 3-19 eGFR (CKD-EPI) 12 Apr 15, 2024 02:41 PM [facility] CBC/PLT BLOOD Specimen Type: BLOOD Comment: ~STAT Ordering Provider: CARRINGTON GRISSOM Report Released Date/Time: Apr 15, 2024 02:03 PM Reporting Lab: [address] [address] Performing Lab: [address] [address] WBC 11.3 10*3/uL H 5.0-10.0 RBC 4.04 10*6/uL L 4.6-6.2 HGB 11.5 g/dL L 14.0-18.0 HCT 36.3 L 42.0-52.0 MCV 89.9 fL 80.0-94.0 MCH 28.5 pg 27.0-31.0 MCHC 31.7 g/dL L 32.0-36.0 PLT 166 10*3/uL 150-450 MPV 10.6 fL 9.0-13.1 RDW 13.6 11.0-16.0 NRBC 0.0 0.0-0.0 Apr 15, 2024 02:41 PM [facility] COVID-19 AND FLU/RSV DIAGNOSTIC PANEL NASOPH [...] Food and Drug Administration's Emergency Use Authorization. [employer] Gen[employer]pert (596) Ordering Provider: CARRINGTON GRISSOM Report Released Date/Time: Apr 15, 2024 02:03 PM Reporting Lab: [address] [address] Performing Lab: [address] [address] COVID-19 PCR (FLUVID) Negative Negative FLU A PCR (FLUVID) Negative Negative FLU B PCR (FLUVID) Negative Negative RSV PCR (FLUVID) Negative Negative Apr 15, 2024 02:41 PM [facility] PROCALCITONIN-[facility] PLASMA Specimen Type: PLASM A Comment: Estimated [...] Apr 15, 2024 02:03 PM Reporting Lab: [address] [address] Performing Lab: [address] [address] PROCALCITONIN-[facility] 0.91 ng/mL H 0.00-0.50 Apr 15, 2024 02:41 PM [facility] AUTOMATED DIFF BLOOD Specimen Type : BLOOD Comment: ~STAT Ordering Provider: CARRINGTON GRISSOM Report Released Date/Time: Apr 15, 2024 02:03 PM Reporting Lab: [address] [address] Performing Lab: [address] [address] A-LYMPH % 21.9 L 24.0-44.0 A-MONO % 14.9 H 0.1-6.0 A-GRAN % 58.9 42.0-75.0 A-LYMPH # 2.47 10*3/uL 1.20-3.40 A-MONO # 1.68 10*3/uL H 0.00-0.60 A-GRAN # 6.63 10*3/uL H 1.40-6.50 A-BASO % 0.3 0.0-3.0 A-BASO # 0.03 10*3/uL 0.00-0.20 A-EOS % 3.7 0.0-10.0 A-EOS # 0.42 10*3/uL 0.00-0.70 A-IG % 0.3 0.0-0.5 A-IG # 0.03 10*3/uL 0.00-0.06 Apr 09, 2024 09:58 AM [facility] DRUG SCREEN IN-HOUSE ROUTINE URINE Specimen [...] Apr 08, 2024 10:18 AM Reporting Lab: [address] [address] Performing Lab: [address] [address] TETRAHYDROCANNABINOL SCREEN NEG AMPHETAMINE SCR NEG BARBITURATES SCR NEG BENZODIAZEPINES SCR NEG COCAINE METABOLITE SCR NEG OPIATES SCR NEG METHADONE SCR NEG OXYCODONE SCR NEG Apr 09, 2024 09:58 AM [facility] MICROALBUMIN/CREAT RATIO URINE Specimen Type: URINE No comment entered. Ordering Provider: MAYLIN PALMER Report Released Date/Time: Apr 08, 2024 10:18 AM Reporting Lab: [address] [address] Performing Lab: [address] [address] CREATININE 116.7 mg/dL MICROALBUMIN QUANT 80.2 mg/L H 0.0-30.0 .MICROALBUMIN/CREA RATIO 68.7 ug/mg{creat} Apr 09, 2024 09:50 AM [facility] CBC/PLT BLOOD Specimen Type: BLOOD No comment entered. Ordering Provider: CAMILO MAYERS Report Released Date/Time: Apr 03, 2024 03:39 PM Reporting Lab: [address] [address] Performing Lab: [place] [phone] WBC 13.1 10*3/uL H 5.0-10.0 RBC 4.41 10*6/uL L 4.6-6.2 HGB 12.5 g/dL L 14.0-18.0 HCT 40.2 L 42.0-52.0 MCV 91.2 fL 80.0-94.0 MCH 28.3 pg 27.0-31.0 MCHC 31.1 g/dL L 32.0-36.0 PLT 191 10*3/uL 150-450 MPV 10.8 fL 9.0-13.1 RDW 13.2 11.0-16.0 NRBC 0.0 0.0-0.0 Apr 09, 2024 09:50 AM [facility] AUTOMATED DIFF BLOOD Specimen Type: BLOOD No comment entered. Ordering Provider: CAMILO MAYERS Report Released Date/Time: Apr 03, 2024 03:39 PM Reporting Lab: [address] [address] Performing Lab: [place] [phone] A-LYMPH % 27.0 24.0-44.0 A-MONO % 9.7 [...] 10*3/uL 0.00-0.06 Apr 09, 2024 09:50 AM [facility] GLYCOHEMOGLOBIN BLOOD Specimen Type: BLOOD Comment: [place] guidelines for A1c interpretation: Glycemic control targets are based on Shared Decision Making between clinicians and patients. Criteria used to establish an A1c target recommendation can be found at https://www.[place].gov/qualityandpatientsafety/ and include the use of result accuracy [...] 8.73 and 9.27. Ref: https://ngsp.org/CAPdata.asp. The in-house [employer] D-100 analyzer has a historical CV <= 2%. Contact the laboratory for further performance characteristics of this assay. Ordering Provider: MAYLIN PALMER Report Released Date/Time: Apr 08, 2024 10:18 AM Reporting Lab: [address] [address] Performing Lab: [address] [address] GLYCOHEMOGLOBIN 6.4 4.4-6.4 Apr 09, 2024 09:50 AM [facility] FERRITIN PLASMA Specimen Type: PLASM A [...] Apr 08, 2024 10:18 AM Reporting Lab: [address] [address] Performing Lab: [address] [address] FERRITIN 40.1 ng/mL 21.8-274.7 Apr 09, 2024 09:50 AM [facility] LIPID PROFILE PLASMA Specimen Type: PLASM [...] Apr 08, 2024 10:18 AM Reporting Lab: [address] [address] Performing Lab: [address] [address] CHOLESTEROL 155 mg/dL 0-199 TRIGLYCERIDE 252 mg/dL H 0-149 HDL CHOLESTEROL 32 mg/dL L 40-69 DIRECT LDL CHOL. 81 mg/dL 0-100 Apr 09, 2024 09:50 AM [facility] 25-OH VITAMIN D SERUM Specime n [...] Apr 08, 2024 10:18 AM Reporting Lab: [facility] [address] [place] [address] Performing Lab: [address] [address] 25-OH VITAMIN D 41.8 ng/mL 20.0-50.0 Apr 09, 2024 09:50 AM [facility] B12 VITAMIN PLASMA Specimen Type: [...] Apr 08, 2024 10:18 AM Reporting Lab: [facility] [address] [facility] [address] Performing Lab: [facility] [address] [facility] [address] B12 VITAMIN 513 pg/mL 213-816 Apr 09, 2024 09:50 AM [facility] TSH PLASMA Specimen Type: PLASM A [...] Apr 08, 2024 10:18 AM Reporting Lab: [address] [address] Performing Lab: [address] [address] TSH 7.3449 m[IU]/mL H 0.3500-4.9400 Apr 09, 2024 09:50 AM [facility] MAGNESIUM PLASMA Specimen Type: PLASM A Comment: [...] Apr 08, 2024 10:18 AM Reporting Lab: [address] [address] Performing Lab: [address] [address] MAGNESIUM 2.0 mg/dL 1.6-2.6 Apr 09, 2024 09:50 AM [facility] Specimen Type: PLASM [...] Apr 08, 2024 10:18 AM Reporting Lab: [address] [address] Performing Lab: [address] [address] CREATININE 2.36 mg/dL H 0.72-1.25 UREA NITROGEN [...] Height Weight Body Mass Index Source Apr 16, 2024 11:55 PM 96.8 69 133/70 18 94 0 [place] Apr 16, 2024 08:43 PM 97.5 76 148/79 18 95 0 [place] [facility] Apr 16, 2024 04:46 PM 97.4 67 150/64 18 96 0 [place] [facility] Apr 16, 2024 12:02 PM 97.1 63 148/73 18 95 0 [place] [facility] Apr 16, 2024 10:40 AM 0 [facility] Social History: Smoking Status (Most current) [...] PM V9 QUIT TOBACCO >7 YEARS AGO [facility] Tobacco Use History This section includes a history of the smoking, or tobacco-related health factors, that were collected on or before the date of the Encounter. The data comes from the [place] facility where the Encounter took place. Date/Time Smoking Status/Tobac co Use Comment Facility Sep 25, 2007 07:04 PM TOBACCO OFFERRED PT MEDS (PROVIDER) [facility] Sep 25, 2007 07:04 PM V9 CURRENT TOBACCO USER [facility] Sep 25, 2007 07:04 PM V9 TOBACCO OFFERED [facility] Aug 16, 2006 05:31 PM TOBACCO OFFERRED PT MEDS (PROVIDER) [facility] Aug 16, 2006 05:31 PM V9 CURRENT TOBACCO USER [facility] Aug 16, 2006 05:31 PM V9 TOBACCO OFFERED [facility] Feb 08, 2006 02:21 PM HF V9 SECOND TOBACCO BOTTLE FEEDER [address] [place] [address] Sep 19, 2005 02:18 PM HF V9 CURRENT SMOKER SMOKES ABOUT 1/2 PPD [facility] Feb 07, 2005 02:38 PM HF V9 SECOND TOBACCO BOTTLE FEEDER [address] [place] [address] Aug 30, 2004 11:28 AM HF V9 THIRD TOBACCO BOTTLE FEEDER SMOKES UP TO 1 PACK EVERY COUPLE OF DAYS [facility] Mar 15, 2004 03:48 PM HF V9 CURRENT SMOKER [address] [place] [address] Sep 01, 2003 11:25 AM HF V9 SECOND TOBACCO BOTTLE FEEDER 10 CIGARETTES A DAY [facility] Oct 21, 2002 12:42 PM HF V9 CURRENT SMOKER 1 pack a day [facility] Radiology Reports: +/- 30 days of [...] 2024 05:07 PM CHEST TWO(2) VIEW PA&LAT: HERONCHELSEY [id number] -1945 M Exm Date: APR 15, 2024@17:07 Req Phys: CARRINGTON GRISSOM Loc: ED/7A-4PM (Req'g Loc) Img Loc: [facility] RADIOLOGY Service: [place] [address] (Case [id number] COMPLETE) CHEST TWO(2) VIEW PA&LAT (RAD Detailed) CPT:38833 Reason for Study: possible admission, diarrhea for 5 days , willis. Clinical History: Report Status: Verified Date Reported: APR 15, 2024 Date Verified: APR 15, 2024 Assistant Professor Surgical Technology E-Sig: Report: PA and lateral chest CLINICAL [...] Interpreting Staff: JAMARI GALEANA, RADIOLOGIST Verified by physiology teacher for JAMARI GALEANA /JAMARI [facility] Apr 15, 2024 05:[address] ABD/PELVIS W/O CONT (RENAL STONE PROTOCOL): CHELSEY SHELBY [id number] -1945 M Exm Date: APR 15, 2024@17:00 Req Phys: CARRINGTON GRISSOM Ana Pat Loc: ED/7A-4PM (Req'g Loc) Img Loc: CT SCAN Service: [place] [address] (Case [id number] COMPLETE) CT ABD/PELVIS W/O CONTRAST (CT Detailed) CPT:70955 Reason for Study: SEE CLINICAL HISTORY Clinical History: 22. Suspected diverticulitis HISTORY/REASON FOR EXAM: patient with WILLIS and diarrhea for 5 days white count about 11. No specifica abdominal pain. Report Status: Verified Date Reported: APR 15, 2024 Date Verified: APR 15, 2024 Assistant Professor Surgical Technology E-Sig: Report: HISTORY SEE CLINICAL [id number]. Suspected diverticulitisHISTORY/REASON FOR EXAM:patient with WILLIS and [...] Staff: ANDREW GARCIA, Staff Physician Verified by physiology teacher for ANDREW GARCIA /[facility]FA[facility] Encounter Notes: All associated encounter notes This section contains the clinical notes associated to the Encounter. Date/Time Encounter Note(s) Provider Source Apr 16, 2024 11:05 AM DISCHARGE PLAN: LOCAL TITLE: DISCHARGE PLAN-INTERDISCIPLINARY TEAM STANDARD TITLE: DISCHARGE PLAN DATE OF NOTE: APR 16, 2024@11:05 ENTRY DATE: APR 16, 2024@11:05:37 AUTHOR: FLAVIA EDOUARD EXP COSIGNER: URGENCY: STATUS: COMPLETED Interdisciplinary Huddle completed today, at which time we reviewed current medical issues and status update. In addition we discussed anticipated discharge date, potential barriers to discharge, and anticipated disposition. TEAM HUDDLE MEMBERS: Present today: MD RHONDA REYNA RD [facility] PharmD Reason for Admission: Diarrhea WILLIS on CKD3 Who makes medical decisions on behalf of Patient? Raymond Mental Health and Suicidality has been discussed in Team Huddle No Additional comments for Interdisciplinary Issues in Daily Care and Discharge Planning: Raymond status update has been provided. Per team, could potentially discharge this date upon clinical improvement. SW met with Raymond at bedside to discuss SW/Discharge planning needs. reported living alone and doing well at home. reported independence in ADLs/IADLs and his DME includes a cane. confirmed access to food, electricity and water. Raymond reported his friend will provide discharge transportation. No further SW/Discharge planning needs identified at this time. SW will continue to follow as needed while Raymond is hospitalized. FINAL DISCHARGE PLAN: Return home alone This provider is receiving ongoing supervision by Kiana Cowan LCSW, with regard to the mental health treatment of this patient. A total of 2 hours weekly supervision is obtained, and this patient's care is discussed as needed, in compliance with [facility] Directive 1027. /arleth/ FLAVIA EDOUARD Central Office Equipment InstallerAREN Signed: 04/16/2024 11:29 [facility]FA[facility]
--- OUTSIDE RECORDS SUMMARY | 2024-04-17 04:30 | XMS_ITS | Encounter Summary ---
Author Name [facility] [facility] [place] [facility] [place] Address [address] [place] [address] Care Team Providers Care Policy Checker Name Role Phone ESTELAMAYLIN Primary Care Provider [...] RISSA SHIRLEY Mar 04, 2012 RISSA RODRIGUEZ [id number] HERONNORMA RICHARDS [place] PATIENT [facility]IC[facility] ADVANTAGE [facility] (WNR) Jul 30, 2017 [id number] HERON,NORMA [place] PATIENT [facility] MEDICARE ADVANTAGE [facility](W NR) Jul 30, 2017 [id number] [phone] HERON,NORMA [place] PATIENT [facility]GANIZ MEDIC ARE BRAULIO Connell Jul 30, 2012 [id number] NORMA SHELBY PATIENT MEDICARE (WNR) MEDICARE (M) PART A Jul 30, 2017 PART A [id number] NORMA SHELBY PATIENT MEDICARE (WNR) MEDICARE (M) PART B Jul 30, 2017 PART B [id number] NORMA SHELBY PATIENT MEDICARE PART D (WNR) PRESCRIPT ION PART D Jul 30, 2017 PART D [id number] NORMA SHELBY PATIENT MEDICARE PART D (WNR) MEDICARE (M) PART D Jul 30, 2017 PART D [id number] NORMA SHELBY PATIENT MEDICARE PART D (WNR) MEDICARE (M) PART D Jul 30, 2017 PART D [id number] NORMA SHELBY PATIENT MEDICARE PART D (WNR) MEDICARE (M) PART D Jul 30, 2012 PART D [id number] NORMA SHELBY PATIENT Selected Encounter This section includes the information on record at [place] for the Encounter. Date/Time Encounter Type Encounter Description Reason Provider Source Apr 17, 2024 08:30 AM [facility]IAL [facility]ICE ICD-10-CM Z78.9 Other specified health status TRUDY EDOUARD Encounter Template Text not used by [place] Assessments - Encounter Diagnoses This section includes the primary and secondary diagnoses documented for the Encounter. Date/Time Primary/Secondary Diagnosis Diagnosis Name Provider Source Apr 17, 2024 02:00 PM PRIMARY Other specified health status [facility] Plan of Treatment: Future Appointments (+ 6 months) and Future Tests (+/- 45 days) The Plan of Treatment section includes future care activities for the patient from all [place] treatmentfacilities. This section includes future appointments and future orders which are active, pending or scheduled. Future Appointments This section includes appointments that were scheduled to occur 6 months from the date of the Encounter, up to a maximum of 20 appointments. The data comes from all [place] treatment facilities. Appointment Date/Time Appointment Type Appointme nt Facility Name May 05, 2024 02:15 PM [facility] May 09, 2024 10:30 AM [facility] May 20, 2024 11:00 AM [facility] - MEDICINE [facility] Jun 25, 2024 09:45 AM AMBULATORY - MEDICINE [facility] Jul 08, 2024 01:40 PM AMBULATORY - SURGERY [facility] Sep 16, 2024 01:20 PM AMBULATORY - MEDICINE [facility] Active, Pending, and Scheduled Orders This section includes a listing of several types of active, pending, and scheduled orders, including clinic medications orders, diagnostic test orders, procedure orders and consult orders; where the start date of the order is 45 days before the date of the Encounter or 45 days after the date of theEncounter. The data comes from all [place] treatment facilities. Test Date/Time Test Type Test Details Facility Name Apr 15, 2024 02:03 PM Laboratory - Chemi stry Order CBC/PLT [id number]-[id number] BLOOD STAT WC ONCE [facility] Lab Results: +/- 30 days of the encounter This section includes the Chemistry and Hematology Lab Results on record with [place] for the patient. Radiology Reports and Pathology Reports are provided separately, in subsequent sections. Lab Results This section contains the Chemistry/Hematology Results that were resulted 30 days before or 30 daysafter the date of the Encounter. Date/Time Source Result Type Result - Unit Interpretation Reference Range Specimen Type Comment May 05, 2024 02:08 PM [facility] PANEL 1 PLASMA Specimen Type: [...] 21, 2024 11:25 AM Reporting Lab: [address] [address] Performing Lab: [address] [address] CREATININE 2.39 mg/dL H 0.72-1.25 UREA NITROGEN 30 mg/dL H 9-25 GLUCOSE 126 mg/dL H 74-100 SODIUM 140 mmol/L 136-145 POTASSIUM 5.0 mmol/L 3.5-5.1 CHLORIDE 110 mmol/L H 98-107 CO2 21 mmol/L L 22-29 CALCIUM 9.9 mg/dL 8.4-10.2 ANION GAP 9 meq/L 3-19 eGFR (CKD-EPI) Apr 18, 2024 11:13 AM [facility] GLUCOSE-HAND MONITOR CAPILLARY Specime n Type: CAPILLARY Comment: Test performed by: [id number] Meter #: [id number] Ordering Provider: CHERYL HURT Report Released Date/Time: Apr 18, 2024 11:44 AM Reporting Lab: [address] [address] Performing Lab: [facility] [address] [facility] [address] GLUCOSE-HAND MONITOR 110 mg/dL H 71-99 Apr 18, 2024 07:58 AM [facility] PANEL 1 PLASMA Specimen Type: PLASM [...] Apr 17, 2024 03:26 PM Reporting Lab: [place] [address] Performing Lab: [address] [address] CREATININE 2.05 mg/dL H 0.72-1.25 UREA NITROGEN 28 mg/dL H 9-25 GLUCOSE 177 mg/dL H 74-100 SODIUM 137 mmol/L 136-145 POTASSIUM 4.3 mmol/L 3.5-5.1 CHLORIDE 109 mmol/L H 98-107 CO2 21 mmol/L L 22-29 CALCIUM 8.6 mg/dL 8.4-10.2 ANION GAP 7 meq/L 3-19 eGFR (CKD-EPI) 32 Apr 18, 2024 07:00 AM [facility] GLUCOSE-HAND MONITOR CAPILLARY Specime n Type: CAPILLARY Comment: CARLOS RN notified Test performed by: [id number] Meter #: [id number] Ordering Provider: CHERYL HURT Report Released Date/Time: Apr 18, 2024 07:22 AM Reporting Lab: [place] [phone] Performing Lab: [place] [phone] GLUCOSE-HAND MONITOR 127 mg/dL H 71-99 Apr 17, 2024 08:26 PM [facility] GLUCOSE-HAND MONITOR CAPILLARY Specime n Type: CAPILLARY Comment: CARLOS RN notified Test performed by: [id number] Meter #: [id number] Ordering Provider: CHERYL HURT Report Released Date/Time: Apr 17, 2024 09:24 PM Reporting Lab: [place] [phone] Performing Lab: [address] [address] GLUCOSE-HAND MONITOR 164 mg/dL H 71-99 Apr 17, 2024 04:45 PM [facility] GLUCOSE-HAND MONITOR CAPILLARY Specime n Type: CAPILLARY Comment: CARLOS RN notified Test performed by: [id number] Meter #: [id number] Ordering Provider: CHERYL HURT Report Released Date/Time: Apr 17, 2024 05:19 PM Reporting Lab: [address] [address] Performing Lab: [address] [address] GLUCOSE-HAND MONITOR 161 mg/dL H Apr 17, 2024 12:11 PM [facility] GLUCOSE-HAND MONITOR CAPILLARY Specime n Type: CAPILLARY Comment: Test performed by: [id number] Meter #: [id number] Ordering Provider: CEHRYL HURT Report Released Date/Time: Apr 17, 2024 12:46 PM Reporting Lab: [facility] [address] [place] [address] Performing Lab: [facility] [address] [facility] [address] GLUCOSE-HAND MONITOR 116 mg/dL H Apr 17, 2024 07:33 AM [facility] PANEL 1 PLASMA Specimen Type: PLASM [...] Apr 16, 2024 03:40 PM Reporting Lab: [place] [phone] Performing Lab: [place] [address] CREATININE 2.39 mg/dL H 0.72-1.25 UREA NITROGEN 35 mg/dL H 9-25 GLUCOSE 117 mg/dL H 74-100 SODIUM 138 mmol/L 136-145 POTASSIUM 4.3 mmol/L 3.5-5.1 CHLORIDE 110 mmol/L H 98-107 CO2 22 mmol/L 22-29 CALCIUM 8.7 mg/dL 8.4-10.2 ANION GAP 6 meq/L 3-19 eGFR (CKD-EPI) Apr 17, 2024 07:33 AM [facility] CBC/PLT BLOOD Specimen Type: BLOOD No comment entered. Ordering Provider: EDGARDO GARCIA Report Released Date/Time: Apr 16, 2024 03:40 PM Reporting Lab: [address] [address] Performing Lab: [place] [phone] WBC 8.8 10*3/uL 5.0-10.0 RBC 4.05 10*6/uL L 4.6-6.2 HGB 11.4 g/dL L 14.0-18.0 HCT 36.1 L 42.0-52.0 MCV 89.1 fL 80.0-94.0 MCH 28.1 pg 27.0-31.0 MCHC 31.6 g/dL L 32.0-36.0 PLT 165 10*3/uL 150-450 MPV 10.4 fL 9.0-13.1 RDW 13.4 11.0-16.0 NRBC 0.0 0.0-0.0 Apr 17, 2024 06:55 AM [facility] GLUCOSE-HAND MONITOR CAPILLARY Specime n Type: CAPILLARY Comment: CARLOS RN notified Test performed by: [id number] Meter #: [id number] Ordering Provider: CHERYL HURT Report Released Date/Time: Apr 17, 2024 07:16 AM Reporting Lab: [address] [address] Performing Lab: [place] [phone] GLUCOSE-HAND MONITOR 125 mg/dL H Apr 16, 2024 08:45 PM [facility] GLUCOSE-HAND MONITOR CAPILLARY Specime n Type: CAPILLARY Comment: CARLOS RN notified Test performed by: [id number] Meter #: [id number] Ordering Provider: CHERYL HURT Report Released Date/Time: Apr 16, 2024 10:14 PM Reporting Lab: [place] [phone] Performing Lab: [place] [phone] GLUCOSE-HAND MONITOR 138 mg/dL H Apr 16, 2024 04:48 PM [facility] GLUCOSE-HAND MONITOR CAPILLARY Specime n Type: CAPILLARY Comment: CARLOS RN notified Test performed by: [id number] Meter #: [id number] Ordering Provider: CHERYL HURT Report Released Date/Time: Apr 16, 2024 05:42 PM Reporting Lab: [place] [phone] Performing Lab: [place] [phone] GLUCOSE-HAND MONITOR 110 mg/dL H Apr 16, 2024 12:03 PM [facility] GLUCOSE-HAND MONITOR CAPILLARY Specime n Type: CAPILLARY Comment: CARLOS RN notified Test performed by: [id number] Meter #: [id number] Ordering Provider: CHERYL HURT Report Released Date/Time: Apr 16, 2024 01:01 PM Reporting Lab: [place] [phone] Performing Lab: [place] [phone] GLUCOSE-HAND MONITOR 126 mg/dL H Apr 16, 2024 08:10 AM [facility] CBC/PLT BLOOD Specimen Type: BLOOD No comment entered. Ordering Provider: EDGARDO GARCIA Report Released Date/Time: Apr 15, 2024 11:24 PM Reporting Lab: [address] [address] Performing Lab: [address] [address] WBC 9.5 10*3/uL 5.0-10.0 RBC 4.19 10*6/uL L 4.6-6.2 HGB 11.6 g/dL L 14.0-18.0 HCT 37.0 L 42.0-52.0 MCV 88.3 fL 80.0-94.0 MCH 27.7 pg 27.0-31.0 MCHC 31.4 g/dL L 32.0-36.0 PLT 163 10*3/uL 150-450 MPV 10.4 fL 9.0-13.1 RDW 13.5 11.0-16.0 NRBC 0.0 0.0-0.0 Apr 16, 2024 08:10 AM [facility] PANEL 1 PLASMA Specimen Type: PLASM [...] <15 G5 Kidney failure Ordering Provider: EDGARDO GARCAI Report Released Date/Time: Apr 15, 2024 11:24 PM Reporting Lab: [address] [address] Performing Lab: [address] [address] CREATININE 3.29 mg/dL H 0.72-1.25 UREA NITROGEN 40 mg/dL H 9-25 GLUCOSE 151 mg/dL H 74-100 SODIUM 136 mmol/L 136-145 POTASSIUM 3.7 mmol/L 3.5-5.1 CHLORIDE 109 mmol/L H 98-107 CO2 18 mmol/L L 22-29 CALCIUM 8.5 mg/dL 8.4-10.2 ANION GAP 9 meq/L 3-19 eGFR (CKD-EPI) Apr 16, 2024 06:43 AM [facility] GLUCOSE-HAND MONITOR CAPILLARY Specime n Type: CAPILLARY Comment: Test performed by: [id number] Meter #: [id number] Ordering Provider: CHERYL HURT Report Released Date/Time: Apr 16, 2024 07:14 AM Reporting Lab: [address] [address] Performing Lab: [address] [address] GLUCOSE-HAND MONITOR 111 mg/dL H 71-99 Apr 16, 2024 06:00 AM [facility] MRSA SURVL NARES DNA NARES Specime [...] 15, 2024 11:24 PM Reporting Lab: [address] [address] Performing Lab: [address] [address] MRSA SURVL NARES DNA Negative Negative Apr 15, 2024 11:44 PM [facility] GLUCOSE-HAND MONITOR CAPILLARY Specime n Type: CAPILLARY Comment: Test performed by: [id number] Meter #: [id number] Ordering Provider: CHERYL HURT Report Released Date/Time: Apr 16, 2024 12:31 AM Reporting Lab: [address] [address] Performing Lab: [address] [address] GLUCOSE-HAND MONITOR 149 mg/dL H 71-99 Apr 15, 2024 07:21 PM [facility] OVA AND PARASITE EXAM, GIARDIA (LC) FECES Specimen Type: FECES Comment: No ova, cysts, or parasites seen. . One negative specimen does not rule out the possibility of a parasitic infection. Ordering Provider: CARRINGTON GRISSOM Report Released Date/Time: Apr 15, 2024 06:03 PM Reporting Lab: [address] [address] Performing Lab: [address] [address] .OVA & PARASITE EXAM (LC) Comment .GIARDIA EIA (LC) Negative Negative Apr 15, 2024 07:21 PM [facility] C DIFF TOXIN BY PCR/REFLEX TO EIA FECES Specimen Type: FECES Comment: This CepTELOSid Xpert C DIFF PCR Assay targets the [...] Apr 15, 2024 06:03 PM Reporting Lab: [address] Performing Lab: [place] [phone] C DIFF TOX B GENE PCR Negative Negative Apr 15, 2024 07:21 PM [facility] WBC FECES (LACTOFERRIN) FECES Spec imen Type: FECES No comment entered. Ordering Provider: CARRINGTON GRISSOM Report Released Date/Time: Apr 15, 2024 06:03 PM Reporting Lab: [place] [phone] Performing Lab: [place] [phone] WBC FECES (LACTOFERRIN) POSITIVE Negativ e Apr 15, 2024 05:53 PM [facility] URINE LYTES URINE Specimen Type : URINE No comment entered. Ordering Provider: CARRINGTON GRISSOM Report Released Date/Time: Apr 15, 2024 04:12 PM Reporting Lab: [place] [phone] Performing Lab: [place] [phone] SODIUM 42 mmol/L POTASSIUM 20.7 mmol/L CHLORIDE 28 mmol/L Apr 15, 2024 05:53 PM [facility] URINALYSIS URINE Specimen Type : URINE No comment entered. Ordering Provider: CARRINGTON GRISSOM Report Released Date/Time: Apr 15, 2024 02:03 PM Reporting Lab: [place] [phone] Performing Lab: [place] [phone] URINE COLOR Yellow Colorless-Yellow APPEARANCE CLOUDY H [...] H None Apr 15, 2024 05:26 PM [facility] MRSA SURVL NARES DNA NARES Specime [...] 15, 2024 04:28 PM Reporting Lab: [address] [address] Performing Lab: [address] [address] MRSA SURVL NARES DNA Negative Negative Apr 15, 2024 02:41 PM [facility] LACTIC ACID PLASMA Specimen Type : PLASMA No comment entered. Ordering Provider: CARRINGTON GRISSOM Report Released Date/Time: Apr 15, 2024 02:03 PM Reporting Lab: [address] [address] Performing Lab: [address] [address] LACTIC ACID 1.4 mmol/L 0.5-2.2 Apr 15, 2024 02:41 PM [facility] LIPASE PLASMA Specimen Type: PLASM A [...] 15, 2024 02:03 PM Reporting Lab: [address] [address] Performing Lab: [address] [address] LIPASE 11 U/L 8Apr 15, 2024 02:41 PM [facility] PANEL 1 PLASMA Specimen Type: PLASM [...] 15, 2024 02:03 PM Reporting Lab: [address] [address] Performing Lab: [address] [address] CREATININE 4.52 mg/dL H 0.72-1.25 UREA NITROGEN 41 mg/dL H 9-25 GLUCOSE 110 mg/dL H 74-100 SODIUM 135 mmol/L L 136-145 POTASSIUM 3.9 mmol/L 3.5-5.1 CHLORIDE 104 mmol/L 98-107 CO2 20 mmol/L L 22-29 CALCIUM 8.8 mg/dL 8.4-10.2 ANION GAP 11 meq/L 3-19 eGFR (CKD-EPI) Apr 15, 2024 02:41 PM [facility] PANEL 2 PLASMA Specimen Type: PLASM [...] 15, 2024 02:03 PM Reporting Lab: [address] [address] Performing Lab: [address] [address] TOTAL PROTEIN 7.2 g/dL 6.4-8.3 ALBUMIN 3.8 g/dL 3.5-5.2 TOTAL BILIRUBIN 0.6 mg/dL 0.2-1.2 AST 21 U/L 5-34 ALT 18 U/L 0-55 ALK PHOS 60 U/L 40-150 BILIRUBIN-DIRECT 0.2 mg/dL 0.0-0.5 Apr 15, 2024 02:41 PM [facility] CBC/PLT BLOOD Specimen Type: BLOOD Comment: ~STAT Ordering Provider: CARRINGTON GRISSOM Report Released Date/Time: Apr 15, 2024 02:03 PM Reporting Lab: [address] [address] Performing Lab: [address] [address] WBC 11.3 10*3/uL H 5.0-10.0 RBC 4.04 10*6/uL L 4.6-6.2 HGB 11.5 g/dL L 14.0-18.0 HCT 36.3 L 42.0-52.0 MCV 89.9 fL 80.0-94.0 MCH 28.5 pg 27.0-31.0 MCHC 31.7 g/dL L 32.0-36.0 PLT 166 10*3/uL 150-450 MPV 10.6 fL 9.0-13.1 RDW 13.6 11.0-16.0 NRBC 0.0 0.0-0.0 Apr 15, 2024 02:41 PM [facility] Specimen Type: PLASM [...] Apr 15, 2024 02:03 PM Reporting Lab: [place] [id number] [facility] [address] Performing Lab: [address] [address] PROCALCITONIN-[facility] 0.91 ng/mL H 0.00-0.50 Apr 15, 2024 02:41 PM [facility] COVID-19 AND FLU/RSV DIAGNOSTIC PANEL NASOPH [...] Food and Drug Administration's Emergency Use Authorization. Applicasa Genexpert (596) Ordering Provider: CARRINGTON GRISSOM Report Released Date/Time: Apr 15, 2024 02:03 PM Reporting Lab: [address] [address] Performing Lab: [address] [address] COVID-19 PCR (FLUVID) Negative Negative FLU A PCR (FLUVID) Negative Negative FLU B PCR (FLUVID) Negative Negative RSV PCR (FLUVID) Negative Negative Apr 15, 2024 02:41 PM [facility] AUTOMATED DIFF BLOOD Specimen Type : BLOOD Comment: ~STAT Ordering Provider: CARRINGTON GRISSOM Report Released Date/Time: Apr 15, 2024 02:03 PM Reporting Lab: [address] [address] Performing Lab: [address] [address] A-LYMPH % 21.9 L 24.0-44.0 A-MONO % 14.9 H 0.1-6.0 A-GRAN % 58.9 42.0-75.0 A-LYMPH # 2.47 10*3/uL 1.20-3.40 A-MONO # 1.68 10*3/uL H 0.00-0.60 A-GRAN # 6.63 10*3/uL H 1.40-6.50 A-BASO % 0.3 0.0-3.0 A-BASO # 0.03 10*3/uL 0.00-0.20 A-EOS % 3.7 0.0-10.0 A-EOS # 0.42 10*3/uL 0.00-0.70 A-IG % 0.3 0.0-0.5 A-IG # 0.03 10*3/uL 0.00-0.06 Apr 09, 2024 09:58 AM [facility] DRUG SCREEN IN-HOUSE ROUTINE URINE Specimen [...] 08, 2024 10:18 AM Reporting Lab: [address] [address] Performing Lab: [address] [address] TETRAHYDROCANNABINOL SCREEN NEG AMPHETAMINE SCR NEG BARBITURATES SCR NEG BENZODIAZEPINES SCR NEG COCAINE METABOLITE SCR NEG OPIATES SCR NEG METHADONE SCR NEG OXYCODONE SCR NEG Apr 09, 2024 09:58 AM [facility] MICROALBUMIN/CREAT RATIO URINE Specimen Type: URINE No comment entered. Ordering Provider: MAYLIN PALMER Report Released Date/Time: Apr 08, 2024 10:18 AM Reporting Lab: [address] [address] Performing Lab: [address] [address] CREATININE 116.7 mg/dL MICROALBUMIN QUANT 80.2 mg/L H 0.0-30.0 .MICROALBUMIN/CREA RATIO 68.7 ug/mg{creat} Apr 09, 2024 09:50 AM [facility] CBC/PLT BLOOD Specimen Type: BLOOD No comment entered. Ordering Provider: CAMILO MAYERS Report Released Date/Time: Apr 03, 2024 03:39 PM Reporting Lab: [address] [address] Performing Lab: [place] [phone] WBC 13.1 10*3/uL H 5.0-10.0 RBC 4.41 10*6/uL L 4.6-6.2 HGB 12.5 g/dL L 14.0-18.0 HCT 40.2 L 42.0-52.0 MCV 91.2 fL 80.0-94.0 MCH 28.3 pg 27.0-31.0 MCHC 31.1 g/dL L 32.0-36.0 PLT 191 10*3/uL 150-450 MPV 10.8 fL 9.0-13.1 RDW 13.2 11.0-16.0 NRBC 0.0 0.0-0.0 Apr 09, 2024 09:50 AM [facility] AUTOMATED DIFF BLOOD Specimen Type: BLOOD No comment entered. Ordering Provider: CAMILO MAYERS Report Released Date/Time: Apr 03, 2024 03:39 PM Reporting Lab: [address] [address] Performing Lab: [place] [phone] A-LYMPH % 27.0 24.0-44.0 A-MONO % 9.7 [...] 10*3/uL 0.00-0.06 Apr 09, 2024 09:50 AM [facility] GLYCOHEMOGLOBIN BLOOD Specimen Type: BLOOD Comment: [place] guidelines for A1c interpretation: Glycemic control targets are based on Shared Decision Making between clinicians and patients. Criteria used to establish an A1c target recommendation can be found at https://www.[place].gov/qualityandpatientsafety/ and include the use of result accuracy [...] 8.73 and 9.27. Ref: https://ngsp.org/CAPdata.asp. The in-house StockRadar-Zafin D-100 analyzer has a historical CV <= 2%. Contact the laboratory for further performance characteristics of this assay. Ordering Provider: MAYLIN PALMER Report Released Date/Time: Apr 08, 2024 10:18 AM Reporting Lab: [address] [address] Performing Lab: [address] [address] GLYCOHEMOGLOBIN 6.4 4.4-6.4 Apr 09, 2024 09:50 AM [facility] LIPID PROFILE PLASMA Specimen Type: PLASM [...] 08, 2024 10:18 AM Reporting Lab: [address] [address] Performing Lab: [address] [address] CHOLESTEROL 155 mg/dL 0-199 TRIGLYCERIDE 252 mg/dL H 0-149 HDL CHOLESTEROL 32 mg/dL L 40-69 DIRECT LDL CHOL. 81 mg/dL 0-100 Apr 09, 2024 09:50 AM [facility] FERRITIN PLASMA Specimen Type: PLASM A Comment: [...] 08, 2024 10:18 AM Reporting Lab: [address] [address] Performing Lab: [address] [address] FERRITIN 40.1 ng/mL 21.8-274.7 Apr 09, 2024 09:50 AM [facility] 25-[place] VITAMIN D SERUM Specime n [...] Apr 08, 2024 10:18 AM Reporting Lab: [facility] [address] [place] [address] Performing Lab: [address] [address] 25-[place] VITAMIN D 41.8 ng/mL 20.0-50.0 Apr 09, 2024 09:50 AM [facility] TSH PLASMA Specimen Type: PLASM A [...] Apr 08, 2024 10:18 AM Reporting Lab: [facility] [address] [facility] [address] Performing Lab: [place] [id number] [facility] [address] TSH 7.3449 m[IU]/mL H 0.3500-4.9400 Apr 09, 2024 09:50 AM [facility] B12 VITAMIN PLASMA Specimen Type: PLASM [...] 08, 2024 10:18 AM Reporting Lab: [address] [address] Performing Lab: [address] [address] B12 VITAMIN 513 pg/mL 213-816 Apr 09, 2024 09:50 AM [facility] MAGNESIUM PLASMA Specimen Type: PLASM A [...] 08, 2024 10:18 AM Reporting Lab: [address] [address] Performing Lab: [address] [address] MAGNESIUM 2.0 mg/dL 1.6-2.6 Apr 09, 2024 09:50 AM [facility] PAN[facility] 5 PLASMA Specimen Type: [...] 08, 2024 10:18 AM Reporting Lab: [address] [address] Performing Lab: [address] [address] CREATININE 2.36 mg/dL H 0.72-1.25 UREA NITROGEN [...] Height Weight Body Mass Index Source Apr 17, 2024 11:58 PM 0 [place] [facility] Apr 17, 2024 08:25 PM 97.7 68 148/70 18 97 0 [place] [facility] Apr 17, 2024 02:58 PM 97.9 67 127/74 18 94 0 [place] [facility] Apr 17, 2024 12:11 PM 97.5 64 155/68 18 95 0 [place] [facility] Apr 17, 2024 11:15 AM 0 [facility] Social History: Smoking Status (Most current) and Tobacco Use (All prior to encounter date) This section includes the most current, and the historical, smoking and tobacco- related health factors from the [place] facility where the Encounter took place. Current Smoking Status This section includes the most current smoking, or tobacco-related health factor, from the [place] facility where the Encounter took place. Date/Time Current Smoking Status Comment Facil ity December 08, 2008 06:50 PM V9 QUIT TOBACCO >7 YEARS AGO [facility] Tobacco Use History This section includes a history of the smoking, or tobacco-related health factors, that were collected on or before the date of the Encounter. The data comes from the [place] facility where the Encounter took place. Date/Time Smoking Status/Tobac co Use Comment Facility Sep 25, 2007 07:04 PM TOBACCO OFFERRED PT MEDS (PROVIDER) [facility] Sep 25, 2007 07:04 PM V9 CURRENT TOBACCO USER [facility] Sep 25, 2007 07:04 PM V9 TOBACCO OFFERED [facility] Aug 16, 2006 05:31 PM TOBACCO OFFERRED PT MEDS (PROVIDER) [facility] Aug 16, 2006 05:31 PM V9 CURRENT TOBACCO USER [facility] Aug 16, 2006 05:31 PM V9 TOBACCO OFFERED [facility] Feb 08, 2006 02:21 PM HF V9 SECOND TOBACCO [employer] [address] [place] [address] Sep 19, 2005 02:18 PM HF V9 CURRENT SMOKER SMOKES ABOUT 1/2 PPD [facility] Feb 07, 2005 02:38 PM HF V9 SECOND TOBACCO [employer] [address] [place] [address] Aug 30, 2004 11:28 AM HF 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 The data comes from all [place] treatment facilities. Date/Time Radiology Report Provider Source Apr 15, 2024 05:07 PM CHEST TWO(2) [facility]: CHELSEY SHELBY [id number] -[id number] M Exm Date: APR 15, 2024@17:07 Req Phys: [facility] GRISSOM Loc: ED/7A-4PM (Req'g Loc) Img Loc: CDD RADIOLOGY Service: [place] [address] (Case [id number] COMPLETE) CHEST TWO(2) VIEW PA&LAT (RAD Detailed) CPT:96771 Reason for Study: possible admission, diarrhea for 5 days , willis. 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 Suspected diverticulitis HISTORY/REASON FOR EXAM: patient with WILLIS and diarrhea for 5 days white count about 11. No specifica abdominal pain. Report Status: Verified Date Reported: APR 15, 2024 Date Verified: APR 15, 2024 Welding Machine Operator E-Sig: Report: HISTORY SEE CLINICAL [id number]. Suspected diverticulitisHISTORY/REASON FOR EXAM:patient with WILLIS and [...] Staff: ANDREW GARCIA, Staff Physician Verified by commercial lines sales executive for ANDREW GARCIA /ATT ANDREW GARCIADIAMOND GROVE CENTERJuan Carlos [facility] Encounter Notes: All associated encounter notes This section contains the clinical notes associated to the Encounter. Date/Time Encounter Note(s) Provider Source Apr 17, 2024 01:28 PM DISCHARGE PLAN: LOCAL TITLE: DISCHARGE PLAN-INTERDISCIPLINARY TEAM STANDARD TITLE: DISCHARGE PLAN DATE OF NOTE: APR 17, 2024@13:28 ENTRY DATE: APR 17, 2024@13:28:41 AUTHOR: FLAVIA EDOUARD EXP COSIGNER: URGENCY: STATUS: COMPLETED Interdisciplinary Huddle completed today, at which time we reviewed current medical issues and status update. In addition we discussed anticipated discharge date, potential barriers to discharge, and anticipated disposition. TEAM HUDDLE MEMBERS: Present today: MD RHONDA REYNA RD [facility] PharmD Reason for Admission: Diarrhea WILLIS on CKD3 Who makes medical decisions on behalf of Patient? [place] [facility] has been discussed in Team Huddle No Additional comments for Interdisciplinary Issues in Daily Care and Discharge Planning: status update has been provided. Per team, is not medically ready for discharge and team is waiting on labs. lives alone and plans to return back to home when medically ready. 's friend will transport him home. No further SW/Discharge planning needs identified at this time. SW will continue to follow as needed while is hospitalized. FINAL DISCHARGE PLAN: Return home alone This provider is receiving ongoing supervision by Kiana Cowan LCSW, with regard to the mental health treatment of this patient. A total of 2 hours weekly supervision is obtained, and this patient's care is discussed as needed, in compliance with [facility] Directive 1027. /arleth/ FLAVIA EDOUARD Social Work AssistantAREN Signed: 04/17/2024 14:00 FLAVIA EDOUARDJuan Carlos [facility]
--- OUTSIDE RECORDS SUMMARY | 2024-04-17 09:06 | XMS_ITS | Encounter Summary ---
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 Role Phone ESTELA MAYLIN [...] RISSA SHIRLEY Mar 04, 2012 RISSA RODRIGUEZ [id number] NORMA SHELBY PATIENT [employer] [facility] (WNR) MEDICARE ADVANTAGE [facility] (WNR) Jul 30, 2017 [id number] HERON,NORMA WELLINGTON PATIENT [employer] [facility] (WNR) MEDICARE ADVANTAGE [facility](W NR) Jul 30, 2017 [id number] HERONNORMAJoel GODOYE PATIENT [facility] [facility] (WNR) [facility] BRAULIO Connell Jul 30, 2012 [id number] NORMA SHELBY PATIENT MEDICARE (WNR) MEDICARE (M) PART A Jul 30, 2017 PART A [id number] NORMA SHELBY PATIENT MEDICARE (WNR) MEDICARE (M) PART B Jul 30, 2017 PART B [id number] NORMA SHELBY PATIENT MEDICARE PART D (WNR) PRESCRIPT ION PART D Jul 30, 2017 PART D [id number] NORMA SHELBY PATIENT MEDICARE PART D (WNR) MEDICARE (M) PART D Jul 30, 2017 PART D [id number] NORMA SHELBY PATIENT MEDICARE PART D (WNR) MEDICARE (M) PART D Jul 30, 2017 PART D [id number] NORMA SHELBY PATIENT MEDICARE PART D (WNR) MEDICARE (M) PART D Jul 30, 2012 PART D [id number] NORMA SHELBY PATIENT Selected Encounter This section includes the information on record at [place] for the Encounter. Date/Time Encounter Type Encounter Description Reason Provider Source Apr 17, 2024 01:06 PM MTMS BY PHARM ADDL 15 MIN CLINICAL PHARMACY ICD-10-CM Z51.81 Encounter for therapeutic drug level monitoring CYNTHIA ANGULO Encounter Template Text not used by [place] Assessments - Encounter Diagnoses This section includes the primary and secondary diagnoses documented for the Encounter. Date/Time Primary/Secondary Diagnosis Diagnosis Name Provider Source Apr 17, 2024 02:22 PM PRIMARY Encounter for therapeutic drug level monitoring SNOW ANGULO-CHRISTIANO Rangel [facility] Plan of Treatment: Future Appointments (+ 6 months) and Future Tests (+/- 45 days) The Plan of Treatment section includes future care activities for the patient from all [place] treatmentfacilities. This section includes future appointments and future orders which are active, pending or scheduled. Future Appointments This section includes appointments that were scheduled to occur 6 months from the date of the Encounter, up to a maximum of 20 appointments. The data comes from all [place] treatment facilities. Appointment Date/Time Appointment Type Appointme nt Facility Name May 05, 2024 02:15 PM AMBULATORY - MEDICINE TAMMY DANIEL [facility] May 09, 2024 10:30 AM AMBULATORY - MEDICINE [facility] May 20, 2024 11:00 AM AMBULATORY - MEDICINE [facility] Jun 25, 2024 09:45 AM AMBULATORY - MEDICINE [facility] Jul 08, 2024 01:40 PM AMBULATORY - SURGERY IVORY LEYVA [facility] Sep 16, 2024 01:20 PM AMBULATORY - MEDICINE [facility] Active, Pending, and Scheduled Orders This section includes a listing of several types of active, pending, and scheduled orders, including clinic medications orders, diagnostic test orders, procedure orders and consult orders; where the start date of the order is 45 days before the date of the Encounter or 45 days after the date of theEncounter. The data comes from all [place] treatment facilities. Test Date/Time Test Type Test Details Facility Name Apr 15, 2024 02:03 PM Laboratory - Chemi stry Order CBC/PLT [id number] BLOOD STAT WC ONCE [facility] Lab Results: +/- 30 days of the [...] Type Comment May 05, 2024 02:08 PM [facility] N PANEL 1 PLASMA Specimen Type: [...] Apr 21, 2024 11:25 AM Reporting Lab: [address] [address] Performing Lab: [address] [address] CREATININE 2.39 mg/dL H 0.72-1.25 UREA NITROGEN 30 mg/dL H 9-25 GLUCOSE 126 mg/dL H 74-100 SODIUM 140 mmol/L 136-145 POTASSIUM 5.0 mmol/L 3.5-5.1 CHLORIDE 110 mmol/L H 98-107 CO2 21 mmol/L L 22-29 CALCIUM 9.9 mg/dL 8.4-10.2 ANION GAP 9 meq/L 3-19 eGFR (CKD-EPI) 27 Apr 18, 2024 11:13 AM [facility] GLUCOSE-HAND MONITOR CAPILLARY Specime n Type: CAPILLARY Comment: Test performed by: [id number] Meter #: [id number] Ordering Provider: CHERYL HURT Report Released Date/Time: Apr 18, 2024 11:44 AM Reporting Lab: [address] [place] [address] Performing Lab: [facility] [address] [facility] [address] GLUCOSE-HAND MONITOR 110 mg/dL H 71-99 Apr 18, 2024 07:58 AM [facility] PANEL 1 PLASMA Specimen Type: PLASM A [...] Apr 17, 2024 03:26 PM Reporting Lab: [address] [address] Performing Lab: [address] [address] CREATININE 2.05 mg/dL H 0.72-1.25 UREA NITROGEN 28 mg/dL H 9-25 GLUCOSE 177 mg/dL H 74-100 SODIUM 137 mmol/L 136-145 POTASSIUM 4.3 mmol/L 3.5-5.1 CHLORIDE 109 mmol/L H 98-107 CO2 21 mmol/L L 22-29 CALCIUM 8.6 mg/dL 8.4-10.2 ANION GAP 7 meq/L 3-19 eGFR (CKD-EPI) 32 Apr 18, 2024 07:00 AM [facility] GLUCOSE-HAND MONITOR CAPILLARY Specime n Type: CAPILLARY Comment: CARLOS RN notified Test performed by: [id number] Meter #: [id number] Ordering Provider: CHERYL HURT Report Released Date/Time: Apr 18, 2024 07:22 AM Reporting Lab: [address] [address] Performing Lab: [address] [address] GLUCOSE-HAND MONITOR 127 mg/dL H 71-99 Apr 17, 2024 08:26 PM [facility] GLUCOSE-HAND MONITOR CAPILLARY Specime n Type: CAPILLARY Comment: CARLOS RN notified Test performed by: [id number] Meter #: [id number] Ordering Provider: CHERYL HURT Report Released Date/Time: Apr 17, 2024 09:24 PM Reporting Lab: [address] [address] Performing Lab: [address] [address] GLUCOSE-HAND MONITOR 164 mg/dL H 71-99 Apr 17, 2024 04:45 PM [facility] GLUCOSE-HAND MONITOR CAPILLARY Specime n Type: CAPILLARY Comment: CARLOS RN notified Test performed by: [id number] Meter #: [id number] Ordering Provider: CHERYL HURT Report Released Date/Time: Apr 17, 2024 05:19 PM Reporting Lab: [address] [address] Performing Lab: [address] [address] GLUCOSE-HAND MONITOR 161 mg/dL H Apr 17, 2024 12:11 PM [facility] GLUCOSE-HAND MONITOR CAPILLARY Specime n Type: CAPILLARY Comment: Test performed by: [id number] Meter #: [id number] Ordering Provider: CHERYL HURT Report Released Date/Time: Apr 17, 2024 12:46 PM Reporting Lab: [address] [address] Performing Lab: [address] [address] GLUCOSE-HAND MONITOR 116 mg/dL H Apr 17, 2024 07:33 AM [facility] PANEL 1 PLASMA Specimen Type: PLASM A [...] Apr 16, 2024 03:40 PM Reporting Lab: [address] [address] Performing Lab: [place] [phone] CREATININE 2.39 mg/dL H 0.72-1.25 UREA NITROGEN 35 mg/dL H 9-25 GLUCOSE 117 mg/dL H 74-100 SODIUM 138 mmol/L 136-145 POTASSIUM 4.3 mmol/L 3.5-5.1 CHLORIDE 110 mmol/L H 98-107 CO2 22 mmol/L 22-29 CALCIUM 8.7 mg/dL 8.4-10.2 ANION GAP 6 meq/L 3-19 eGFR (CKD-EPI) Apr 17, 2024 07:33 AM [facility] CBC/PLT BLOOD Specimen Type: BLOOD No comment entered. Ordering Provider: EDGARDO GARCIA Report Released Date/Time: Apr 16, 2024 03:40 PM Reporting Lab: [address] [address] Performing Lab: [address] [address] WBC 8.8 10*3/uL 5.0-10.0 RBC 4.05 10*6/uL L 4.6-6.2 HGB 11.4 g/dL L 14.0-18.0 HCT 36.1 L 42.0-52.0 MCV 89.1 fL 80.0-94.0 MCH 28.1 pg 27.0-31.0 MCHC 31.6 g/dL L 32.0-36.0 PLT 165 10*3/uL 150-450 MPV 10.4 fL 9.0-13.1 RDW 13.4 11.0-16.0 NRBC 0.0 0.0-0.0 Apr 17, 2024 06:55 AM [facility] GLUCOSE-HAND MONITOR CAPILLARY Specime n Type: CAPILLARY Comment: CARLOS RN notified Test performed by: [id number] Meter #: [id number] Ordering Provider: CHERYL HURT Report Released Date/Time: Apr 17, 2024 07:16 AM Reporting Lab: [place] [phone] Performing Lab: [place] [phone] GLUCOSE-HAND MONITOR 125 mg/dL H Apr 16, 2024 08:45 PM [facility] GLUCOSE-HAND MONITOR CAPILLARY Specime n Type: CAPILLARY Comment: CARLOS RN notified Test performed by: [id number] Meter #: [id number] Ordering Provider: CHERYL HURT Report Released Date/Time: Apr 16, 2024 10:14 PM Reporting Lab: [place] [phone] Performing Lab: [place] [phone] GLUCOSE-HAND MONITOR 138 mg/dL H Apr 16, 2024 04:48 PM [facility] GLUCOSE-HAND MONITOR CAPILLARY Specime n Type: CAPILLARY Comment: CARLOS RN notified Test performed by: [id number] Meter #: [id number] Ordering Provider: CHERYL HURT Report Released Date/Time: Apr 16, 2024 05:42 PM Reporting Lab: [place] [phone] Performing Lab: [place] [phone] GLUCOSE-HAND MONITOR 110 mg/dL H Apr 16, 2024 12:03 PM [facility] GLUCOSE-HAND MONITOR CAPILLARY Specime n Type: CAPILLARY Comment: CARLOS RN notified Test performed by: [id number] Meter #: [id number] Ordering Provider: CHERYL HURT Report Released Date/Time: Apr 16, 2024 01:01 PM Reporting Lab: [address] [address] Performing Lab: [place] [phone] GLUCOSE-HAND MONITOR 126 mg/dL H Apr 16, 2024 08:10 AM [facility] CBC/PLT BLOOD Specimen Type: BLOOD No comment entered. Ordering Provider: EDGARDO GARCIA Report Released Date/Time: Apr 15, 2024 11:24 PM Reporting Lab: [facility] [address] [facility] [address] Performing Lab: [facility] [address] [facility] [address] WBC 9.5 10*3/uL 5.0-10.0 RBC 4.19 10*6/uL L 4.6-6.2 HGB 11.6 g/dL L 14.0-18.0 HCT 37.0 L 42.0-52.0 MCV 88.3 fL 80.0-94.0 MCH 27.7 pg 27.0-31.0 MCHC 31.4 g/dL L 32.0-36.0 PLT 163 10*3/uL 150-450 MPV 10.4 fL 9.0-13.1 RDW 13.5 11.0-16.0 NRBC 0.0 0.0-0.0 Apr 16, 2024 08:10 AM [facility] PANEL 1 PLASMA Specimen Type: PLASM A [...] Apr 15, 2024 11:24 PM Reporting Lab: [place] [phone] Performing Lab: [place] [phone] CREATININE 3.29 mg/dL H 0.72-1.25 UREA NITROGEN 40 mg/dL H 9-25 GLUCOSE 151 mg/dL H 74-100 SODIUM 136 mmol/L 136-145 POTASSIUM 3.7 mmol/L 3.5-5.1 CHLORIDE 109 mmol/L H 98-107 CO2 18 mmol/L L 22-29 CALCIUM 8.5 mg/dL 8.4-10.2 ANION GAP 9 meq/L 3-19 eGFR (CKD-EPI) Apr 16, 2024 06:43 AM [facility] GLUCOSE-HAND MONITOR CAPILLARY Specime n Type: CAPILLARY Comment: Test performed by: [id number] Meter #: [id number] Ordering Provider: CHERYL HURT Report Released Date/Time: Apr 16, 2024 07:14 AM Reporting Lab: [address] [address] Performing Lab: [place] [phone] GLUCOSE-HAND MONITOR 111 mg/dL H 71-99 Apr 16, 2024 06:00 AM [facility] MRSA SURVL NARES DNA NARES Specime n [...] Apr 15, 2024 11:24 PM Reporting Lab: [address] [address] Performing Lab: [place] [phone] MRSA SURVL NARES DNA Negative Negative Apr 15, 2024 11:44 PM [facility] GLUCOSE-HAND MONITOR CAPILLARY Specime n Type: CAPILLARY Comment: Test performed by: [id number] Meter #: [id number] Ordering Provider: CHERYL HURT Report Released Date/Time: Apr 16, 2024 12:31 AM Reporting Lab: [address] [address] Performing Lab: [address] [address] GLUCOSE-HAND MONITOR 149 mg/dL H 71-99 Apr 15, 2024 07:21 PM [facility] OVA AND PARASITE EXAM, GIARDIA (LC) FECES Specimen Type: FECES Comment: No ova, cysts, or parasites seen. . One negative specimen does not rule out the possibility of a parasitic infection. Ordering Provider: CARRINGTON GRISSOM Report Released Date/Time: Apr 15, 2024 06:03 PM Reporting Lab: [address] [address] Performing Lab: [address] [address] .OVA & PARASITE EXAM (LC) Comment .GIARDIA EIA (LC) Negative Negative Apr 15, 2024 07:21 PM [facility] C DIFF TOXIN BY PCR/REFLEX TO EIA FECES Specimen Type: FECES Comment: This Cepheid Xpert C DIFF PCR Assay targets the [...] Apr 15, 2024 06:03 PM Reporting Lab: [place] [address] Performing Lab: [place] [address] C DIFF TOX B GENE PCR Negative Negative Apr 15, 2024 07:21 PM [facility] WBC FECES (LACTOFERRIN) FECES Spec imen Type: FECES No comment entered. Ordering Provider: CARRINGTON GRISSOM Report Released Date/Time: Apr 15, 2024 06:03 PM Reporting Lab: [place] [phone] Performing Lab: [place] [address] WBC FECES (LACTOFERRIN) POSITIVE Negativ e Apr 15, 2024 05:53 PM [facility] URINE LYTES URINE Specimen Type : URINE No comment entered. Ordering Provider: CARRINGTON GRISSOM Report Released Date/Time: Apr 15, 2024 04:12 PM Reporting Lab: [place] [phone] Performing Lab: [place] [phone] SODIUM 42 mmol/L POTASSIUM 20.7 mmol/L CHLORIDE 28 mmol/L Apr 15, 2024 05:53 PM [facility] URINALYSIS URINE Specimen Type : URINE No comment entered. Ordering Provider: CARRINGTON GRISSOM Report Released Date/Time: Apr 15, 2024 02:03 PM Reporting Lab: [place] [phone] Performing Lab: [place] [phone] URINE COLOR Yellow Colorless-Yellow APPEARANCE CLOUDY H [...] Apr 15, 2024 05:26 PM [facility] MRSA SURVL NARES DNA NARES Specime n [...] Apr 15, 2024 04:28 PM Reporting Lab: [address] [address] Performing Lab: [address] [address] MRSA SURVL NARES DNA Negative Negative Apr 15, 2024 02:41 PM [facility] LACTIC ACID PLASMA Specimen Type : PLASMA No comment entered. Ordering Provider: CARRINGTON GRISSOM Report Released Date/Time: Apr 15, 2024 02:03 PM Reporting Lab: [address] [address] Performing Lab: [address] [address] LACTIC ACID 1.4 mmol/L 0.5-2.2 Apr 15, 2024 02:41 PM [facility] LIPASE PLASMA Specimen Type: PLASM A Comment: [...] Apr 15, 2024 02:03 PM Reporting Lab: [address] [address] Performing Lab: [address] [place] [address] LIPASE 11 U/L 878 Apr 15, 2024 02:41 PM [facility] PANEL 1 PLASMA Specimen Type: PLASM A [...] Apr 15, 2024 02:03 PM Reporting Lab: [address] [address] Performing Lab: [facility] [address] [facility] [address] CREATININE 4.52 mg/dL H 0.72-1.25 UREA NITROGEN 41 mg/dL H 9-25 GLUCOSE 110 mg/dL H 74-100 SODIUM 135 mmol/L L 136-145 POTASSIUM 3.9 mmol/L 3.5-5.1 CHLORIDE 104 mmol/L 98-107 CO2 20 mmol/L L 22-29 CALCIUM 8.8 mg/dL 8.4-10.2 ANION GAP 11 meq/L 3-19 eGFR (CKD-EPI) Apr 15, 2024 02:41 PM [facility] PANEL 2 PLASMA Specimen Type: PLASM A [...] Apr 15, 2024 02:03 PM Reporting Lab: [address] [address] Performing Lab: [address] [address] TOTAL PROTEIN 7.2 g/dL 6.4-8.3 ALBUMIN 3.8 g/dL 3.5-5.2 TOTAL BILIRUBIN 0.6 mg/dL 0.2-1.2 AST 21 U/L 5-34 ALT 18 U/L 0-55 ALK PHOS 60 U/L 40-150 BILIRUBIN-DIRECT 0.2 mg/dL 0.0-0.5 Apr 15, 2024 02:41 PM [facility] CBC/PLT BLOOD Specimen Type: BLOOD Comment: ~STAT Ordering Provider: CARRINGTON GRISSOM Report Released Date/Time: Apr 15, 2024 02:03 PM Reporting Lab: [address] [address] Performing Lab: [address] [address] WBC 11.3 10*3/uL H 5.0-10.0 RBC 4.04 10*6/uL L 4.6-6.2 HGB 11.5 g/dL L 14.0-18.0 HCT 36.3 L 42.0-52.0 MCV 89.9 fL 80.0-94.0 MCH 28.5 pg 27.0-31.0 MCHC 31.7 g/dL L 32.0-36.0 PLT 166 10*3/uL 150-450 MPV 10.6 fL 9.0-13.1 RDW 13.6 11.0-16.0 NRBC 0.0 0.0-0.0 Apr 15, 2024 02:41 PM [facility] PROCALCITONIN-[facility] PLASMA Specimen Type: PLASM A Comment: Estimated [...] Apr 15, 2024 02:03 PM Reporting Lab: [address] [address] Performing Lab: [address] [address] PROCALCITONIN-[facility] 0.91 ng/mL H 0.00-0.50 Apr 15, 2024 02:41 PM [facility] COVID-19 AND FLU/RSV DIAGNOSTIC PANEL NASOPH ARYNX [...] Food and Drug Administration's Emergency Use Authorization. [facility] [employer] Genexpert (596) Ordering Provider: CARRINGTON GRISSOM Report Released Date/Time: Apr 15, 2024 02:03 PM Reporting Lab: [address] [address] Performing Lab: [address] [address] COVID-19 PCR (FLUVID) Negative Negative FLU A PCR (FLUVID) Negative Negative FLU B PCR (FLUVID) Negative Negative RSV PCR (FLUVID) Negative Negative Apr 15, 2024 02:41 PM [facility] AUTOMATED DIFF BLOOD Specimen Type : BLOOD Comment: ~STAT Ordering Provider: CARRINGTON GRISSOM Report Released Date/Time: Apr 15, 2024 02:03 PM Reporting Lab: [address] [address] Performing Lab: [address] [address] A-LYMPH % 21.9 L 24.0-44.0 A-MONO % 14.9 H 0.1-6.0 A-GRAN % 58.9 42.0-75.0 A-LYMPH # 2.47 10*3/uL 1.20-3.40 A-MONO # 1.68 10*3/uL H 0.00-0.60 A-GRAN # 6.63 10*3/uL H 1.40-6.50 A-BASO % 0.3 0.0-3.0 A-BASO # 0.03 10*3/uL 0.00-0.20 A-EOS % 3.7 0.0-10.0 A-EOS # 0.42 10*3/uL 0.00-0.70 A-IG % 0.3 0.0-0.5 A-IG # 0.03 10*3/uL 0.00-0.06 Apr 09, 2024 09:58 AM [facility] DRUG SCREEN IN-HOUSE ROUTINE URINE Specimen [...] Apr 08, 2024 10:18 AM Reporting Lab: [address] [address] Performing Lab: [place] [phone] TETRAHYDROCANNABINOL SCREEN NEG AMPHETAMINE SCR NEG BARBITURATES SCR NEG BENZODIAZEPINES SCR NEG COCAINE METABOLITE SCR NEG OPIATES SCR NEG METHADONE SCR NEG OXYCODONE SCR NEG Apr 09, 2024 09:58 AM [facility] MICROALBUMIN/CREAT RATIO URINE Specimen Type: URINE No comment entered. Ordering Provider: MAYLIN PALMER Report Released Date/Time: Apr 08, 2024 10:18 AM Reporting Lab: [address] [address] Performing Lab: [address] [address] CREATININE 116.7 mg/dL MICROALBUMIN QUANT 80.2 mg/L H 0.0-30.0 .MICROALBUMIN/CREA RATIO 68.7 ug/mg{creat} Apr 09, 2024 09:50 AM [facility] CBC/PLT BLOOD Specimen Type: BLOOD No comment entered. Ordering Provider: CAMILO MAYERS Report Released Date/Time: Apr 03, 2024 03:39 PM Reporting Lab: [address] [address] Performing Lab: [address] [address] WBC 13.1 10*3/uL H 5.0-10.0 RBC 4.41 10*6/uL L 4.6-6.2 HGB 12.5 g/dL L 14.0-18.0 HCT 40.2 L 42.0-52.0 MCV 91.2 fL 80.0-94.0 MCH 28.3 pg 27.0-31.0 MCHC 31.1 g/dL L 32.0-36.0 PLT 191 10*3/uL 150-450 MPV 10.8 fL 9.0-13.1 RDW 13.2 11.0-16.0 NRBC 0.0 0.0-0.0 Apr 09, 2024 09:50 AM [facility] AUTOMATED DIFF BLOOD Specimen Type: BLOOD No comment entered. Ordering Provider: CAMILO MAYERS Report Released Date/Time: Apr 03, 2024 03:39 PM Reporting Lab: [address] [address] Performing Lab: [address] [address] A-LYMPH % 27.0 24.0-44.0 A-MONO % 9.7 [...] 10*3/uL 0.00-0.06 Apr 09, 2024 09:50 AM [facility] GLYCOHEMOGLOBIN BLOOD Specimen Type: BLOOD Comment: [place] guidelines for A1c interpretation: Glycemic control targets are based on Shared Decision Making between clinicians and patients. Criteria used to establish an A1c target recommendation can be found at https://www.ut.gov/qualityandpatientsafety/ and include the use of result accuracy [...] 8.73 and 9.27. Ref: https://ngsp.org/CAPdata.asp. The in-house [employer] D-100 analyzer has a historical CV <= 2%. Contact the laboratory for further performance characteristics of this assay. Ordering Provider: MAYLIN PALMER Report Released Date/Time: Apr 08, 2024 10:18 AM Reporting Lab: [address] [address] Performing Lab: [address] [address] GLYCOHEMOGLOBIN 6.4 4.4-6.4 Apr 09, 2024 09:50 AM [facility] LIPID PROFILE PLASMA Specimen Type: PLASM [...] Apr 08, 2024 10:18 AM Reporting Lab: [address] [address] Performing Lab: [address] [address] CHOLESTEROL 155 mg/dL 0-199 TRIGLYCERIDE 252 mg/dL H 0-149 HDL CHOLESTEROL 32 mg/dL L 40-69 DIRECT LDL CHOL. 81 mg/dL 0-100 Apr 09, 2024 09:50 AM [facility] FERRITIN PLASMA Specimen Type: PLASM A Comment: [...] Apr 08, 2024 10:18 AM Reporting Lab: [address] [address] Performing Lab: [address] [address] FERRITIN 40.1 ng/mL 21.8-274.7 Apr 09, 2024 09:50 AM [facility]-[place] VITAMIN D SERUM Specime n Type: [...] 2024 10:18 AM Reporting Lab: [facility] [address] [facility] [address] Performing Lab: [place] [address] [facility] [address] 25-OH VITAMIN D 41.8 ng/mL 20.0-50.0 Apr 09, 2024 09:50 AM [facility] TSH PLASMA Specimen Type: PLASM A Comment: [...] Apr 08, 2024 10:18 AM Reporting Lab: [address] [address] Performing Lab: [address] [address] TSH 7.3449 m[IU]/mL H 0.3500-4.9400 Apr 09, 2024 09:50 AM [facility] B12 VITAMIN PLASMA Specimen Type: PLASM [...] Apr 08, 2024 10:18 AM Reporting Lab: [address] [address] Performing Lab: [address] [address] B12 VITAMIN 513 pg/mL 213-816 Apr 09, 2024 09:50 AM [facility] MAGNESIUM PLASMA Specimen Type: PLASM A Comment: [...] decrease <15 G5 Kidney failure Ordering Provider: MALYIN PALMER Report Released Date/Time: Apr 08, 2024 10:18 AM Reporting Lab: [address] [address] Performing Lab: [address] [address] MAGNESIUM 2.0 mg/dL 1.6-2.6 Apr 09, 2024 09:50 AM [facility] Specimen Type: PLASM A [...] Apr 08, 2024 10:18 AM Reporting Lab: [address] [address] Performing Lab: [address] [address] CREATININE 2.36 mg/dL H 0.72-1.25 UREA NITROGEN [...] 17, 2024 11:58 PM 0 [place] [facility] Apr 17, 2024 08:25 PM 97.7 68 148/70 18 97 0 [place] [facility] Apr 17, 2024 02:58 PM 97.9 67 127/74 18 94 0 [place] [facility] Apr 17, 2024 12:11 PM 97.5 64 155/68 18 95 0 [place] [facility] Apr 17, 2024 11:15 AM [facility] Social History: Smoking Status (Most current) and Tobacco Use (All prior to encounter date) This section includes the most current, and the historical, smoking and tobacco- related health factors from the [place] facility where the Encounter took place. Current Smoking Status This section includes the most current smoking, or tobacco-related health factor, from the [place] facility where the Encounter took place. Date/Time Current Smoking Status Comment Facil ity December 08, 2008 06:50 PM V9 QUIT TOBACCO >7 YEARS AGO [facility] Tobacco Use History This section includes a history of the smoking, or tobacco-related health factors, that were collected on or before the date of the Encounter. The data comes from the [place] facility where the Encounter took place. 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 [address] [place] [address] Sep 19, 2005 02:18 PM HF V9 CURRENT SMOKER SMOKES ABOUT 1/2 PPD [facility] Feb 07, 2005 02:38 PM HF 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 The data comes from all [place] treatment facilities. Date/Time Radiology Report Provider Source Apr 15, 2024 05:07 PM CHEST TWO(2) VIEW PA&LAT: CHELSEY SHELBY [id number] -[id number] M Exm Date: APR 15, 2024@17:07 Req Phys: CARRINGTON GRISSOM Loc: ED/7A-4PM (Req'g Loc) Img Loc: [facility] RADIOLOGY Service: [place] [address] (Case [id number] COMPLETE) CHEST TWO(2) VIEW PA&LAT (RAD Detailed) CPT:77582 Reason for Study: possible admission, diarrhea for 5 days , willis. Clinical History: Report Status: Verified Date Reported: APR 15, 2024 Date Verified: APR 15, 2024 Bander E-Sig: Report: PA and lateral chest CLINICAL [...] Interpreting Staff: JAMARI GALEANA, RADIOLOGIST Verified by buttermaker for JAMARI GALEANA /[facility] Apr 15, 2024 05:[address] ABD/PELVIS W/O CONT (RENAL STONE PROTOCOL): CHELSEY SHELBY [id number] -[phone] M Exm Date: APR 15, 2024@17:00 Req Phys: PRAVEENAARTHURSHULTZ Ana Donohue Loc: ED/7A-4PM (Req'g Loc) Img Loc: CT SCAN Service: [place] [address] (Case [id number] COMPLETE) CT ABD/PELVIS W/O CONTRAST (CT Detailed) CPT:31718 Reason for Study: SEE CLINICAL HISTORY Clinical History: 22. Suspected diverticulitis HISTORY/REASON FOR EXAM: patient with WILLIS and diarrhea for 5 days white count about 11. No specifica abdominal pain. Report Status: Verified Date Reported: APR 15, 2024 Date Verified: APR 15, 2024 Bander E-Sig: Report: HISTORY SEE CLINICAL [id number]. Suspected diverticulitisHISTORY/REASON FOR EXAM:patient with WILLIS and [...] Staff: ANDREW GARCIA, Staff Physician Verified by buttermaker for ANDREW GARCIA /ATT ANDREW GARCIA-D [facility] Encounter Notes: All associated encounter notes This section contains the clinical notes associated to the Encounter. Date/Time Encounter Note(s) Provider Source Apr 17, 2024 01:06 PM PHARMACY TECHNICIA N NOTE: LOCAL TITLE: RN DISEASE MANAGEMENT ADMISSION MEDICATION RECONCILIATION N STANDARD TITLE: EDUCATION PROGRAM SPECIALIST NOTE DATE OF NOTE: APR 17, 2024@13:06 ENTRY DATE: APR 17, 2024@13:06:21 AUTHOR: MIGUEL ANGEL ANGULO COSIGNER: URGENCY: STATUS: COMPLETED RN DISEASE MANAGEMENT ADMISSION MEDICATION RECONCILIATION NOTE Has ADDENDA ADMISSION MEDICATION RECONCILIATION Admission Date/Time: Mar 23:23 ALLERGIES: Patient has answered NKA Review of medications include: Patient allergies (Remote and Local) and active and pending [facility] and dispensed from [facility] or [facility] facility (remote and pending) as well as local inpatient orders (pending and active)and clinic medications (IMOs), locally documented non-VA medications and local prescriptions that have or been discontinued in the past 90 days. With the exception of Allergies, if a category is not listed below, it means there were no relevant medications for the patient. OUTPATIENT MEDICATION REVIEW Outpatient medication list prior to admission (as reported by [facility]): LOCAL ACTIVE [facility] MEDICATIONS: Active and Recently Outpatient Medications (including Supplies): Active Outpatient Medications Status 1) APIXABAN 5MG TAB TAKE ONE-HALF TABLET BY MOUTH TWICE ACTIVE A DAY TO THIN BLOOD -CALL ANTICOAGULATION CLINIC [phone] WITH QUESTIONS OR CONCERNS 2) ATORVASTATIN CALCIUM 40MG TAB TAKE ONE-HALF TABLET BY ACTIVE MOUTH DAILY FOR CHOLESTEROL 3) CHLORTHALIDONE 25MG TAB TAKE ONE TABLET BY MOUTH ACTIVE DAILY FOR BLOOD PRESSURE 4) FLUOXETINE HCL 20MG CAP TAKE ONE CAPSULE BY MOUTH ACTIVE DAILY FOR MOOD 5) GABAPENTIN 300MG CAP TAKE TWO CAPSULES BY MOUTH TWICE ACTIVE A DAY FOR NERVE PAIN 6) [id number] PENTOXIFYLLINE SA 400MG/PBO TAKE ONE ACTIVE TABLET [...] BY MOUTH ACTIVE DAILY FOR BLOOD PRESSURE/HEART Pending Outpatient Medications Status 1) ACCU-CHEK GUIDE (GLUCOSE) TEST STRIP USE 1 STRIP TO PENDING TEST BLOOD SUGAR DIRECTED 2) LANCET,SOFTCLIX USE LANCET AFFECTED AREA DIRECTED PENDING Inactive Outpatient Medications Status 1) CHLORTHALIDONE 25MG TAB TAKE ONE TABLET BY MOUTH DAILY FOR BLOOD PRESSURE 2) [id number] PENTOXIFYLLINE SA 400MG/PBO TAKE ONE TABLET BY MOUTH TWICE A DAY WITH FOOD. SWALLOW WHOLE-DO NOT CHEW, CRUSH OR CUT 15 Total Medications No Active Remote Medications for this patient INPATIENT MEDICATION REVIEW Active Inpatient Medications (including Supplies): Start Date Active Inpatient Medications Status Stop Date 1) APIXABAN TAB,ORAL ACTIVE Strt:04-15-24 Give: 2.5MG PO BID Stop:07-23-24 2) ATORVASTATIN TAB ACTIVE Strt:04-15-24 Give: 20MG PO DAILY Stop:07-23-24 3) FLUOXETINE CAP,ORAL ACTIVE Strt:04-15-24 Give: 20MG PO DAILY Stop:07-23-24 4) GABAPENTIN CAP,ORAL ACTIVE Strt:04-15-24 Give: 600MG PO BID Stop:07-23-24 5) LOPERAMIDE CAP,ORAL ACTIVE Strt:04-17-24 Give: 2MG PO Q4H PRN Stop:07-23-24 6) METOPROLOL TARTRATE *IR* TAB ACTIVE Strt:04-15-24 Give: 25MG PO BID Stop:07-23-24 7) PANTOPRAZOLE TAB,EC ACTIVE Strt:04-15-24 Give: 40MG PO BID_PPI Stop:07-23-24 8) SPIRONOLACTONE *HANDLING ALERT* TAB ACTIVE Strt:04-15-24 Give: 25MG PO DAILY Stop:07-23-24 PATIENT INTERVIEW Spoke to Mr. Shelby bedside. Pt. manages own meds and was a good historian; able to verify meds/dose schedules (confirmed Apixaban dose). Pt. reports taking all meds as directed. Pt. reports NKDA and denies use of OTC products. Pt[facility] Pt. requested Gabapentin and Pantoprazole be refilled at discharge (Gabapentin locally if possible). Patient reports taking the following meds/discontinued medications: -none Patient reports taking the following non-VA Medications: -none RECONCILIATION REVIEW The following discrepancies were noted: Medications not continued on admission: -Chlorthalidone -Pentoxifylline -Lisinopril -Metformin Medications continued on admission with changes from outpatient regimen: -none Medication discrepancies between OPT profile and patient interview: -Apixaban: Pt. confirmed 2.5MG BID dose (last outpat. dose Tu AM). -Gabapentin: Pt. reports forgetting to call in for refill prior to admission. Requested local refill at discharge if possible. -Pantoprazole: Pt. requested refill be mailed at discharge. New inpatient medications: -Loperamide Time spent reviewing chart: 30 Minutes PBM PharmD Pharmacotherapy Rem V12: Medication reconciliation (changes to active VA and non-VA medication lists to reconcile differences) Changes to medication lists made Discontinue or remove medication Add or renew medication /es/ LILLIE ANGULO [facility] Signed: 04/17/2024 14:22 04/17/2024 ADDENDUM STATUS: COMPLETED Recommendations: 1. Apixaban: indication is Afib, agree with continuation of home dose 2.5mg bid (78yo, 143kg, Cr 2.39). 2. Home medication review -Chlorthalidone: held for WILLIS -Lisinopril: held for WILLIS -Pentoxifylline: investigational drug, agree with holding 3. WILLIS on CKD: est CrCl 35ml/min, recommend decreasing Gabapentin dose to 400mg bid until renal fxn improves. Max dose for CrCl 30-49ml/min is 900mg/day in divided doses. Spoke with team: okay to adjust Gabapentin dose, pharmacy to update. PBM PharmD Pharmacotherapy Rem V12: PHARMACIST INTERVENTIONS: ANTICOAGULATION THERAPY DIRECT ORAL ANTICOAGULANT (DOAC) MANAGEMENT Medication monitoring, no dosage change required, continue to monitor and assess ACUTE KIDNEY INJURY Medication Intervention(s) Adjust dose or frequency of current medication Medication monitoring or diagnostic evaluation (e.g., other labs, EKG) /arleth/ AKI LOZOYA, PHARM.D. CLINICAL PHARMACIST Signed: 04/17/2024 15:14 LILLIE ANGULO-[facility]
--- OUTSIDE RECORDS SUMMARY | 2024-04-18 06:54 | XMS_ITS | Encounter Summary ---
Author Name [facility] [place] [facility] [place] Address [address] [place] [address] Care Team Providers Care Admissions Nurse Name Role Phone ESTELA MAYLIN Primary Care [...] RISSA SHIRLEY Mar 04, 2012 RISSA RODRIGUEZ [id number] NORMA SHELBY PATIENT [employer] [facility] (WNR) MEDICARE ADVANTAGE [facility] (WNR) Jul 30, 2017 [id number] HERONNORMAJoel PARIS PATIENT [employer] [facility] (WNR) MEDICARE ADVANTAGE [facility](W NR) Jul 30, 2017 [id number] NORMA SHELBY PATIENT [employer] [facility] (WNR) [facility] ARE BRAULIO Connell Jul 30, 2012 [id number] NORMA SHELBY PATIENT MEDICARE (WNR) MEDICARE (M) PART A Jul 30, 2017 PART A [id number] NORMA SHELBY PATIENT MEDICARE (WNR) MEDICARE (M) PART B Jul 30, 2017 PART B [id number] NORMA SHELBY PATIENT MEDICARE PART D (WNR) PRESCRIPT ION PART D Jul 30, 2017 PART D [id number] NORMA SHELBY PATIENT MEDICARE PART D (WNR) MEDICARE (M) PART D Jul 30, 2017 PART D [id number] NORMA SHELBY PATIENT MEDICARE PART D (WNR) MEDICARE (M) PART D Jul 30, 2017 PART D [id number] [phone] NORMA SHELBY PATIENT MEDICARE PART D (WNR) MEDICARE (M) PART D Jul 30, 2012 PART D [id number] NORMA SHELBY PATIENT Selected Encounter This section includes the information on record at [place] for the Encounter. Date/Time Encounter Type Encounter Description Reason Provider Source Apr 18, 2024 10:54 [facility] ICD-10-CM Z51.81 Encounter for therapeutic drug level monitoring EMILY LOZOYA Abi Encounter Template Text not used by [place] Assessments - Encounter Diagnoses This section includes the primary and secondary diagnoses documented for the Encounter. Date/Time Primary/Secondary Diagnosis Diagnosis Name Provider Source Apr 18, 2024 11:38 AM PRIMARY Encounter for therapeutic drug level monitoring AKI LOZOYA Juan Carlos [facility] Plan of Treatment: Future Appointments (+ 6 months) and Future Tests (+/- 45 days) The Plan of Treatment section includes future care activities for the patient from all [place] treatmentfacilities. This section includes future appointments and future orders which are active, pending or scheduled. Future Appointments This section includes appointments that were scheduled to occur 6 months from the date of the Encounter, up to a maximum of 20 appointments. The data comes from all [place] treatment facilities. Appointment Date/Time Appointment Type Appointme nt Facility Name May 05, 2024 02:15 PM [facility] May 09, 2024 10:30 AM [facility] MEDICINE [facility] May 20, 2024 11:00 AM AMBULATORY - MEDICINE [facility] Jun 25, 2024 09:45 AM AMBULATORY - MEDICINE [facility] Jul 08, 2024 01:40 PM AMBULATORY - SURGERY [facility] Sep 16, 2024 01:20 PM AMBULATORY - MEDICINE [facility] Active, Pending, and Scheduled Orders This section includes a listing of several types of active, pending, and scheduled orders, including clinic medications orders, diagnostic test orders, procedure orders and consult orders; where the start date of the order is 45 days before the date of the Encounter or 45 days after the date of theEncounter. The data comes from all [place] treatment facilities. Test Date/Time Test Type Test Details Facility Name Apr 15, 2024 02:03 PM Laboratory - Chemi stry Order CBC/PLT [id number] BLOOD STAT WC ONCE [facility] Lab Results: +/- 30 days of [...] Type Comment May 05, 2024 02:08 PM [facility] PANEL 1 PLASMA Specimen Type: PLASMA [...] Apr 21, 2024 11:25 AM Reporting Lab: [address] [address] Performing Lab: [address] [address] CREATININE 2.39 mg/dL H 0.72-1.25 UREA NITROGEN 30 mg/dL H 9-25 GLUCOSE 126 mg/dL H 74-100 SODIUM 140 mmol/L 136-145 POTASSIUM 5.0 mmol/L 3.5-5.1 CHLORIDE 110 mmol/L H 98-107 CO2 21 mmol/L L 22-29 CALCIUM 9.9 mg/dL 8.4-10.2 ANION GAP 9 meq/L 3-19 eGFR (CKD-EPI) 27 Apr 18, 2024 11:13 AM [facility] GLUCOSE-HAND MONITOR CAPILLARY Specime n Type: CAPILLARY Comment: Test performed by: [id number] Meter #: [id number] Ordering Provider: CHERYL HURT Report Released Date/Time: Apr 18, 2024 11:44 AM Reporting Lab: [address] [place] [address] Performing Lab: [facility] [address] [facility] [address] GLUCOSE-HAND MONITOR 110 mg/dL H 71-99 Apr 18, 2024 07:58 AM [facility] PANEL 1 PLASMA Specimen Type: PLASM [...] Apr 17, 2024 03:26 PM Reporting Lab: [address] [address] Performing Lab: [address] [address] CREATININE 2.05 mg/dL H 0.72-1.25 UREA NITROGEN 28 mg/dL H 9-25 GLUCOSE 177 mg/dL H 74-100 SODIUM 137 mmol/L 136-145 POTASSIUM 4.3 mmol/L 3.5-5.1 CHLORIDE 109 mmol/L H 98-107 CO2 21 mmol/L L 22-29 CALCIUM 8.6 mg/dL 8.4-10.2 ANION GAP 7 meq/L 3-19 eGFR (CKD-EPI) 32 Apr 18, 2024 07:00 AM [facility] GLUCOSE-HAND MONITOR CAPILLARY Specime n Type: CAPILLARY Comment: CARLOS RN notified Test performed by: [id number] Meter #: [id number] Ordering Provider: CHERYL HURT Report Released Date/Time: Apr 18, 2024 07:22 AM Reporting Lab: [address] [address] Performing Lab: [address] [address] GLUCOSE-HAND MONITOR 127 mg/dL H 71-99 Apr 17, 2024 08:26 PM [facility] GLUCOSE-HAND MONITOR CAPILLARY Specime n Type: CAPILLARY Comment: CARLOS RN notified Test performed by: [id number] Meter #: [id number] Ordering Provider: CHERYL HURT Report Released Date/Time: Apr 17, 2024 09:24 PM Reporting Lab: [address] [address] Performing Lab: [address] [address] GLUCOSE-HAND MONITOR 164 mg/dL H 71-99 Apr 17, 2024 04:45 PM [facility] GLUCOSE-HAND MONITOR CAPILLARY Specime n Type: CAPILLARY Comment: CARLOS RN notified Test performed by: [id number] Meter #: [id number] Ordering Provider: CHERYL HURT Report Released Date/Time: Apr 17, 2024 05:19 PM Reporting Lab: [address] [address] Performing Lab: [address] [address] GLUCOSE-HAND MONITOR 161 mg/dL H Apr 17, 2024 12:11 PM [facility] GLUCOSE-HAND MONITOR CAPILLARY Specime n Type: CAPILLARY Comment: Test performed by: [id number] Meter #: [id number] Ordering Provider: CHERYL HURT Report Released Date/Time: Apr 17, 2024 12:46 PM Reporting Lab: [address] [address] Performing Lab: [address] [address] GLUCOSE-HAND MONITOR 116 mg/dL H Apr 17, 2024 07:33 AM [facility] PANEL 1 PLASMA Specimen Type: PLASM [...] Apr 16, 2024 03:40 PM Reporting Lab: [address] [address] Performing Lab: [place] [id number] CREATININE 2.39 mg/dL H 0.72-1.25 UREA NITROGEN 35 mg/dL H 9-25 GLUCOSE 117 mg/dL H 74-100 SODIUM 138 mmol/L 136-145 POTASSIUM 4.3 mmol/L 3.5-5.1 CHLORIDE 110 mmol/L H 98-107 CO2 22 mmol/L 22-29 CALCIUM 8.7 mg/dL 8.4-10.2 ANION GAP 6 meq/L 3-19 eGFR (CKD-EPI) Apr 17, 2024 07:33 AM [facility] CBC/PLT BLOOD Specimen Type: BLOOD No comment entered. Ordering Provider: EDGARDO GARCIA Report Released Date/Time: Apr 16, 2024 03:40 PM Reporting Lab: [address] [address] Performing Lab: [address] [address] WBC 8.8 10*3/uL 5.0-10.0 RBC 4.05 10*6/uL L 4.6-6.2 HGB 11.4 g/dL L 14.0-18.0 HCT 36.1 L 42.0-52.0 MCV 89.1 fL 80.0-94.0 MCH 28.1 pg 27.0-31.0 MCHC 31.6 g/dL L 32.0-36.0 PLT 165 10*3/uL 150-450 MPV 10.4 fL 9.0-13.1 RDW 13.4 11.0-16.0 NRBC 0.0 0.0-0.0 Apr 17, 2024 06:55 AM [facility] GLUCOSE-HAND MONITOR CAPILLARY Specime n Type: CAPILLARY Comment: CARLOS RN notified Test performed by: [id number] Meter #: [id number] Ordering Provider: CHERYL HURT Report Released Date/Time: Apr 17, 2024 07:16 AM Reporting Lab: [place] [id number] Performing Lab: [place] [id number] GLUCOSE-HAND MONITOR 125 mg/dL H Apr 16, 2024 08:45 PM [facility] GLUCOSE-HAND MONITOR CAPILLARY Specime n Type: CAPILLARY Comment: CARLOS RN notified Test performed by: [id number] Meter #: [id number] Ordering Provider: CHERYL HURT Report Released Date/Time: Apr 16, 2024 10:14 PM Reporting Lab: [place] [id number] Performing Lab: [place] [id number] GLUCOSE-HAND MONITOR 138 mg/dL H Apr 16, 2024 04:48 PM [facility] GLUCOSE-HAND MONITOR CAPILLARY Specime n Type: CAPILLARY Comment: CARLOS RN notified Test performed by: [id number] Meter #: [id number] Ordering Provider: CHERYL HURT Report Released Date/Time: Apr 16, 2024 05:42 PM Reporting Lab: [place] [id number] Performing Lab: [place] [id number] GLUCOSE-HAND MONITOR 110 mg/dL H Apr 16, 2024 12:03 PM [facility] GLUCOSE-HAND MONITOR CAPILLARY Specime n Type: CAPILLARY Comment: CARLOS RN notified Test performed by: [id number] Meter #: [id number] Ordering Provider: CHERYL HURT Report Released Date/Time: Apr 16, 2024 01:01 PM Reporting Lab: [address] [address] Performing Lab: [place] [id number] GLUCOSE-HAND MONITOR 126 mg/dL H Apr 16, 2024 08:10 AM [facility] CBC/PLT BLOOD Specimen Type: BLOOD No comment entered. Ordering Provider: EDGARDO GARCIA Report Released Date/Time: Apr 15, 2024 11:24 PM Reporting Lab: [facility] [address] [facility] [address] Performing Lab: [facility] [address] [facility] [address] WBC 9.5 10*3/uL 5.0-10.0 RBC 4.19 10*6/uL L 4.6-6.2 HGB 11.6 g/dL L 14.0-18.0 HCT 37.0 L 42.0-52.0 MCV 88.3 fL 80.0-94.0 MCH 27.7 pg 27.0-31.0 MCHC 31.4 g/dL L 32.0-36.0 PLT 163 10*3/uL 150-450 MPV 10.4 fL 9.0-13.1 RDW 13.5 11.0-16.0 NRBC 0.0 0.0-0.0 Apr 16, 2024 08:10 AM [facility] PANEL 1 PLASMA Specimen Type: PLASM [...] Apr 15, 2024 11:24 PM Reporting Lab: [place] [id number] Performing Lab: [place] [id number] CREATININE 3.29 mg/dL H 0.72-1.25 UREA NITROGEN 40 mg/dL H 9-25 GLUCOSE 151 mg/dL H 74-100 SODIUM 136 mmol/L 136-145 POTASSIUM 3.7 mmol/L 3.5-5.1 CHLORIDE 109 mmol/L H 98-107 CO2 18 mmol/L L 22-29 CALCIUM 8.5 mg/dL 8.4-10.2 ANION GAP 9 meq/L 3-19 eGFR (CKD-EPI) Apr 16, 2024 06:43 AM [facility] GLUCOSE-HAND MONITOR CAPILLARY Specime n Type: CAPILLARY Comment: Test performed by: [id number] Meter #: [id number] Ordering Provider: CHERYL HURT Report Released Date/Time: Apr 16, 2024 07:14 AM Reporting Lab: [address] [address] Performing Lab: [place] [id number] GLUCOSE-HAND MONITOR 111 mg/dL H 71-99 Apr 16, 2024 06:00 AM [facility] MRSA SURVL NARES DNA NARES Specime [...] Apr 15, 2024 11:24 PM Reporting Lab: [address] [address] Performing Lab: [place] [id number] MRSA SURVL NARES DNA Negative Negative Apr 15, 2024 11:44 PM [facility] GLUCOSE-HAND MONITOR CAPILLARY Specime n Type: CAPILLARY Comment: Test performed by: [id number] Meter #: [id number] Ordering Provider: CHERYL HURT Report Released Date/Time: Apr 16, 2024 12:31 AM Reporting Lab: [address] [address] Performing Lab: [address] [address] GLUCOSE-HAND MONITOR 149 mg/dL H 71-99 Apr 15, 2024 07:21 PM [facility] OVA AND PARASITE EXAM, GIARDIA (LC) FECES Specimen Type: FECES Comment: No ova, cysts, or parasites seen. . One negative specimen does not rule out the possibility of a parasitic infection. Ordering Provider: CARRINGTON GRISSOM Report Released Date/Time: Apr 15, 2024 06:03 PM Reporting Lab: [address] [address] Performing Lab: [address] [address] .OVA & PARASITE EXAM (LC) Comment .GIARDIA EIA (LC) Negative Negative Apr 15, 2024 07:21 PM [facility] C DIFF TOXIN BY PCR/REFLEX TO [...] Apr 15, 2024 06:03 PM Reporting Lab: [place] [address] Performing Lab: [place] [address] C DIFF TOX B GENE PCR Negative Negative Apr 15, 2024 07:21 PM [facility] WBC FECES (LACTOFERRIN) FECES Spec imen Type: FECES No comment entered. Ordering Provider: CARRINGTON GRISSOM Report Released Date/Time: Apr 15, 2024 06:03 PM Reporting Lab: [place] [id number] Performing Lab: [place] [address] WBC FECES (LACTOFERRIN) POSITIVE Negativ e Apr 15, 2024 05:53 PM [facility] URINE LYTES URINE Specimen Type : URINE No comment entered. Ordering Provider: CARRINGTON GRISSOM Report Released Date/Time: Apr 15, 2024 04:12 PM Reporting Lab: [place] [id number] Performing Lab: [place] [id number] SODIUM 42 mmol/L POTASSIUM 20.7 mmol/L CHLORIDE 28 mmol/L Apr 15, 2024 05:53 PM [facility] URINALYSIS URINE Specimen Type : URINE No comment entered. Ordering Provider: CARRINGTON GRISSOM Report Released Date/Time: Apr 15, 2024 02:03 PM Reporting Lab: [place] [id number] Performing Lab: [place] [id number] URINE COLOR Yellow Colorless-Yellow APPEARANCE CLOUDY H [...] H None Apr 15, 2024 05:26 PM [facility] MRSA SURVL NARES DNA NARES Specime [...] Apr 15, 2024 04:28 PM Reporting Lab: [address] [address] Performing Lab: [address] [address] MRSA SURVL NARES DNA Negative Negative Apr 15, 2024 02:41 PM [facility] LACTIC ACID PLASMA Specimen Type : PLASMA No comment entered. Ordering Provider: CARRINGTON GRISSOM Report Released Date/Time: Apr 15, 2024 02:03 PM Reporting Lab: [address] [address] Performing Lab: [address] [address] LACTIC ACID 1.4 mmol/L 0.5-2.2 Apr 15, 2024 02:41 PM [facility] LIPASE PLASMA Specimen Type: PLASM A [...] Apr 15, 2024 02:03 PM Reporting Lab: [address] [address] Performing Lab: [address] [place] [address] LIPASE 11 U/L 878 Apr 15, 2024 02:41 PM [facility] PANEL 2 PLASMA Specimen Type: PLASM [...] Apr 15, 2024 02:03 PM Reporting Lab: [address] [address] Performing Lab: [facility] [address] [facility] [address] TOTAL PROTEIN 7.2 g/dL 6.4-8.3 ALBUMIN 3.8 g/dL 3.5-5.2 TOTAL BILIRUBIN 0.6 mg/dL 0.2-1.2 AST 21 U/L 5-34 ALT 18 U/L 0-55 ALK PHOS 60 U/L 40-150 BILIRUBIN-DIRECT 0.2 mg/dL 0.0-0.5 Apr 15, 2024 02:41 PM [facility] PANEL 1 PLASMA Specimen Type: PLASM [...] Apr 15, 2024 02:03 PM Reporting Lab: [address] [address] Performing Lab: [address] [address] CREATININE 4.52 mg/dL H 0.72-1.25 UREA NITROGEN 41 mg/dL H 9-25 GLUCOSE 110 mg/dL H 74-100 SODIUM 135 mmol/L L 136-145 POTASSIUM 3.9 mmol/L 3.5-5.1 CHLORIDE 104 mmol/L 98-107 CO2 20 mmol/L L 22-29 CALCIUM 8.8 mg/dL 8.4-10.2 ANION GAP 11 meq/L 3-19 eGFR (CKD-EPI) 12 Apr 15, 2024 02:41 PM [facility] CBC/PLT BLOOD Specimen Type: BLOOD Comment: ~STAT Ordering Provider: CARRINGTON GRISSOM Report Released Date/Time: Apr 15, 2024 02:03 PM Reporting Lab: [address] [address] Performing Lab: [address] [address] WBC 11.3 10*3/uL H 5.0-10.0 RBC 4.04 10*6/uL L 4.6-6.2 HGB 11.5 g/dL L 14.0-18.0 HCT 36.3 L 42.0-52.0 MCV 89.9 fL 80.0-94.0 MCH 28.5 pg 27.0-31.0 MCHC 31.7 g/dL L 32.0-36.0 PLT 166 10*3/uL 150-450 MPV 10.6 fL 9.0-13.1 RDW 13.6 11.0-16.0 NRBC 0.0 0.0-0.0 Apr 15, 2024 02:41 PM [facility] COVID-19 AND FLU/RSV DIAGNOSTIC PANEL NASOPH [...] Food and Drug Administration's Emergency Use Authorization. [employer] Gen[employer]pert (596) Ordering Provider: CARRINGTON GRISSOM Report Released Date/Time: Apr 15, 2024 02:03 PM Reporting Lab: [address] [address] Performing Lab: [address] [address] COVID-19 PCR (FLUVID) Negative Negative FLU A PCR (FLUVID) Negative Negative FLU B PCR (FLUVID) Negative Negative RSV PCR (FLUVID) Negative Negative Apr 15, 2024 02:41 PM [facility] PROCALCITONIN-[facility] PLASMA Specimen Type: PLASM A Comment: [...] Apr 15, 2024 02:03 PM Reporting Lab: [place] [id number] Performing Lab: [place] [id number] PROCALCITONIN-[facility] 0.91 ng/mL H 0.00-0.50 Apr 15, 2024 02:41 PM [facility] AUTOMATED DIFF BLOOD Specimen Type : BLOOD Comment: ~STAT Ordering Provider: CARRINGTON GRISSOM Report Released Date/Time: Apr 15, 2024 02:03 PM Reporting Lab: [address] [address] Performing Lab: [place] [id number] A-LYMPH % 21.9 L 24.0-44.0 A-MONO % 14.9 H 0.1-6.0 A-GRAN % 58.9 42.0-75.0 A-LYMPH # 2.47 10*3/uL 1.20-3.40 A-MONO # 1.68 10*3/uL H 0.00-0.60 A-GRAN # 6.63 10*3/uL H 1.40-6.50 A-BASO % 0.3 0.0-3.0 A-BASO # 0.03 10*3/uL 0.00-0.20 A-EOS % 3.7 0.0-10.0 A-EOS # 0.42 10*3/uL 0.00-0.70 A-IG % 0.3 0.0-0.5 A-IG # 0.03 10*3/uL 0.00-0.06 Apr 09, 2024 09:58 AM [facility] DRUG SCREEN IN-HOUSE ROUTINE URINE Specimen [...] Apr 08, 2024 10:18 AM Reporting Lab: [address] [address] Performing Lab: [place] [id number] TETRAHYDROCANNABINOL SCREEN NEG AMPHETAMINE SCR NEG BARBITURATES SCR NEG BENZODIAZEPINES SCR NEG COCAINE METABOLITE SCR NEG OPIATES SCR NEG METHADONE SCR NEG OXYCODONE SCR NEG Apr 09, 2024 09:58 AM [facility] MICROALBUMIN/CREAT RATIO URINE Specimen Type: URINE No comment entered. Ordering Provider: MAYLIN PALMER Report Released Date/Time: Apr 08, 2024 10:18 AM Reporting Lab: [address] [address] Performing Lab: [address] [address] CREATININE 116.7 mg/dL MICROALBUMIN QUANT 80.2 mg/L H 0.0-30.0 .MICROALBUMIN/CREA RATIO 68.7 ug/mg{creat} Apr 09, 2024 09:50 AM [facility] CBC/PLT BLOOD Specimen Type: BLOOD No comment entered. Ordering Provider: CAMILO MAYERS Report Released Date/Time: Apr 03, 2024 03:39 PM Reporting Lab: [address] [address] Performing Lab: [address] [address] WBC 13.1 10*3/uL H 5.0-10.0 RBC 4.41 10*6/uL L 4.6-6.2 HGB 12.5 g/dL L 14.0-18.0 HCT 40.2 L 42.0-52.0 MCV 91.2 fL 80.0-94.0 MCH 28.3 pg 27.0-31.0 MCHC 31.1 g/dL L 32.0-36.0 PLT 191 10*3/uL 150-450 MPV 10.8 fL 9.0-13.1 RDW 13.2 11.0-16.0 NRBC 0.0 0.0-0.0 Apr 09, 2024 09:50 AM [facility] AUTOMATED DIFF BLOOD Specimen Type: BLOOD No comment entered. Ordering Provider: CAMILO MAYERS Report Released Date/Time: Apr 03, 2024 03:39 PM Reporting Lab: [address] [address] Performing Lab: [address] [address] A-LYMPH % 27.0 24.0-44.0 A-MONO % 9.7 [...] 10*3/uL 0.00-0.06 Apr 09, 2024 09:50 AM [facility] GLYCOHEMOGLOBIN BLOOD Specimen Type: BLOOD Comment: [facility] guidelines for A1c interpretation: Glycemic control targets are based on Shared Decision Making between clinicians and patients. Criteria used to establish an A1c target recommendation can be found at https://www.[place].gov/qualityandpatientsafety/ and include the use of result accuracy [...] 8.73 and 9.27. Ref: https://ngsp.org/CAPdata.asp. The in-house [employer] D-100 analyzer has a historical CV <= 2%. Contact the laboratory for further performance characteristics of this assay. Ordering Provider: MAYLIN PALMER Report Released Date/Time: Apr 08, 2024 10:18 AM Reporting Lab: [address] [address] Performing Lab: [address] [address] GLYCOHEMOGLOBIN 6.4 4.4-6.4 Apr 09, 2024 09:50 AM [facility] FERRITIN PLASMA Specimen Type: PLASM A [...] Apr 08, 2024 10:18 AM Reporting Lab: [address] [address] Performing Lab: [address] [address] FERRITIN 40.1 ng/mL 21.8-274.7 Apr 09, 2024 09:50 AM [facility] LIPID PROFILE PLASMA Specimen Type: PLASM [...] Apr 08, 2024 10:18 AM Reporting Lab: [address] [address] Performing Lab: [address] [address] CHOLESTEROL 155 mg/dL 0-199 TRIGLYCERIDE 252 mg/dL H 0-149 HDL CHOLESTEROL 32 mg/dL L 40-69 DIRECT LDL CHOL. 81 mg/dL 0-100 Apr 09, 2024 09:50 AM [facility]-OH VITAMIN D SERUM Specime n [...] Apr 08, 2024 10:18 AM Reporting Lab: [facility] [address] [facility] [address] Performing Lab: [place] [id number] [facility] [address] 25-OH VITAMIN D 41.8 ng/mL 20.0-50.0 Apr 09, 2024 09:50 AM [facility] PLASMA Specimen Type: PLASM A Comment: [...] Apr 08, 2024 10:18 AM Reporting Lab: [address] [address] Performing Lab: [address] [address] TSH 7.3449 m[IU]/mL H 0.3500-4.9400 Apr 09, 2024 09:50 AM [facility] B12 VITAMIN PLASMA Specimen Type: PLAS MA Comment: Vitamin B12 test may not yield [...] Apr 08, 2024 10:18 AM Reporting Lab: [address] [address] Performing Lab: [address] [address] B12 VITAMIN 513 pg/mL 213-816 Apr 09, 2024 09:50 AM [facility] MAGNESIUM PLASMA Specimen Type: PLASM A [...] Apr 08, 2024 10:18 AM Reporting Lab: [address] [address] Performing Lab: [address] [address] MAGNESIUM 2.0 mg/dL 1.6-2.6 Apr 09, 2024 09:50 AM [facility] PANEL 5 PLASMA Specimen Type: PLASM [...] Apr 08, 2024 10:18 AM Reporting Lab: [address] [address] Performing Lab: [address] [address] CREATININE 2.36 mg/dL H 0.72-1.25 UREA NITROGEN [...] Height Weight Body Mass Index Source Apr 18, 2024 12:50 PM 97.6 65 164/74 18 94 0 [place] Apr 18, 2024 11:12 AM 97.8 60 169/76 18 95 0 [place] [facility] Apr 18, 2024 08:28 AM 97.6 67 153/75 18 95 0 [place] [facility] Apr 18, 2024 04:49 AM 97.1 62 153/75 18 93 0 [facility] Apr 18, 2024 12:14 AM 97.3 63 170/80 18 92 0 [facility] Social History: Smoking Status (Most current) and Tobacco Use (All prior to encounter date) This section includes the most current, and the historical, smoking and tobacco- related health factors from the [place] facility where the Encounter took place. Current Smoking Status This section includes the most current smoking, or tobacco-related health factor, from the [place] facility where the Encounter took place. Date/Time Current Smoking Status Comment Facil ity December 08, 2008 06:50 PM V9 QUIT TOBACCO >7 YEARS AGO [facility] Tobacco Use History This section includes a history of the smoking, or tobacco-related health factors, that were collected on or before the date of the Encounter. The data comes from the [place] facility where the Encounter took place. Date/Time Smoking Status/Tobac co Use Comment Facility Sep 25, 2007 07:04 PM TOBACCO OFFERRED PT MEDS (PROVIDER) [facility] Sep 25, 2007 07:04 PM V9 CURRENT TOBACCO USER [facility] Sep 25, 2007 07:04 PM V9 TOBACCO OFFERED [facility] Aug 16, 2006 05:31 PM TOBACCO OFFERRED PT MEDS (PROVIDER) [facility] Aug 16, 2006 05:31 PM V9 CURRENT TOBACCO USER [facility] Aug 16, 2006 05:31 PM V9 TOBACCO OFFERED [facility] Feb 08, 2006 02:21 PM HF V9 SECOND TOBACCO B AND B [employer] WORK[employer] [address] [place] [address] Sep 19, 2005 02:18 PM HF V9 CURRENT SMOKER SMOKES ABOUT 1/2 PPD [facility] Feb 07, 2005 02:38 PM HF V9 SECOND TOBACCO B [employer] [address] [place] [address] Aug 30, 2004 11:28 AM HF V9 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 The data comes from all [place] treatment facilities. Date/Time Radiology Report Provider Source Apr 15, 2024 05:07 PM CHEST TWO(2) VIEW PA&LAT: CHELSEY SHELBY [id number] -1945 M Exm Date: APR 15, 2024@17:07 Req Phys: CARRINGTON GRISSOM Loc: ED/7A-4PM (Req'g Loc) Img Loc: [facility]D RADIOLOGY Service: [place] [address] (Case [id number] COMPLETE) CHEST TWO(2) VIEW PA&LAT (RAD Detailed) CPT:38523 Reason for Study: possible admission, diarrhea for 5 days , willis. Clinical History: Report Status: Verified Date Reported: APR 15, 2024 Date Verified: APR 15, 2024 Construction Coordinator E-Sig: Report: PA and lateral chest CLINICAL [...] Interpreting Staff: JAMARI GALEANA, RADIOLOGIST Verified by applied research director for JAMARI GALEANA /JAMARI [facility] Apr 15, 2024 05:[address] ABD/PELVIS W/O CONT (RENAL STONE PROTOCOL): HERON,CHELSEY [id number] -1945 M Exm Date: APR 15, 2024@17:00 Req Phys: CARRINGTON GRISSOM Loc: ED/7A-4PM (Req'g Loc) Img Loc: CT SCAN Service: [place] [address] (Case [id number] COMPLETE) CT ABD/PELVIS W/O CONTRAST (CT Detailed) CPT:68555 Reason for Study: SEE CLINICAL HISTORY Clinical History: 22. Suspected diverticulitis HISTORY/REASON FOR EXAM: patient with WILLIS and diarrhea for 5 days white count about 11. No specifica abdominal pain. Report Status: Verified Date Reported: APR 15, 2024 Date Verified: APR 15, 2024 Construction Coordinator E-Sig: Report: HISTORY SEE CLINICAL [id number]. Suspected diverticulitisHISTORY/REASON FOR EXAM:patient with WILLIS and [...] Staff: ANDREW GARCIA, Staff Physician Verified by applied research director for ANDREW GARCIA /ATT ANDREW GARCIA-D [facility] Encounter Notes: All associated encounter notes This section contains the clinical notes associated to the Encounter. Date/Time Encounter Note(s) Provider Source Apr 18, 2024 10:54 AM PHARMACY MEDICATIO N MGT DISCHARGE NOTE: LOCAL TITLE: PHARMACY DISCHARGE MEDICATION RECONCILIATION STANDARD TITLE: PHARMACY MEDICATION MGT DISCHARGE NOTE DATE OF NOTE: APR 18, 2024@10:54 ENTRY DATE: APR 18, 2024@10:54:41 AUTHOR: AKI LOZOYA COSIGNER: URGENCY: STATUS: COMPLETED DISCHARGE MEDICATION RECONCILATION Have you used tobacco products (smoked/chewed) within the past 30 days? No, patient has not used tobacco products within the past 30 days ADVERSE DRUG REACTIONS/ALLERGIES: Patient has answered NKA CURRENT INPATIENT REGIMEN: Active Inpatient Medications (including Supplies): Start Date Active Inpatient Medications Status Stop Date 1) APIXABAN TAB,ORAL ACTIVE Strt:04-15-24 Give: 2.5MG PO BID Stop:07-23-24 2) ATORVASTATIN TAB ACTIVE Strt:04-15-24 Give: 20MG PO DAILY Stop:07-23-24 3) FLUOXETINE CAP,ORAL ACTIVE Strt:04-15-24 Give: 20MG PO DAILY Stop:07-23-24 4) GABAPENTIN CAP,ORAL ACTIVE Strt:04-17-24 Give: 400MG PO BID Stop:07-23-24 5) LOPERAMIDE CAP,ORAL ACTIVE Strt:04-17-24 Give: 2MG PO Q4H PRN Stop:07-23-24 6) METOPROLOL TARTRATE *IR* TAB ACTIVE Strt:04-15-24 Give: 25MG PO BID Stop:07-23-24 7) PANTOPRAZOLE TAB,EC ACTIVE Strt:04-15-24 Give: 40MG PO BID_PPI Stop:07-23-24 8) SPIRONOLACTONE *HANDLING ALERT* TAB ACTIVE Strt:04-15-24 Give: 25MG PO DAILY Stop:07-23-24 CURRENT OUTPATIENT MEDICATIONS: Active and Recently Outpatient Medications (including Supplies): Active Outpatient Medications Status 1) APIXABAN 5MG TAB TAKE ONE-HALF TABLET BY MOUTH TWICE ACTIVE A DAY TO THIN BLOOD -CALL [facility]UL[facility] CLINIC [phone] WITH QUESTIONS OR CONCERNS 2) ATORVASTATIN CALCIUM 40MG TAB TAKE ONE-HALF TABLET BY ACTIVE MOUTH DAILY FOR CHOLESTEROL 3) CHLORTHALIDONE 25MG TAB TAKE ONE TABLET BY MOUTH ACTIVE DAILY FOR BLOOD PRESSURE 4) FLUOXETINE HCL 20MG CAP TAKE ONE CAPSULE BY MOUTH ACTIVE DAILY FOR MOOD 5) GABAPENTIN 300MG CAP TAKE TWO CAPSULES BY MOUTH TWICE ACTIVE A DAY FOR NERVE PAIN 6) [id number] PENTOXIFYLLINE SA 400MG/PBO TAKE ONE ACTIVE TABLET [...] BY MOUTH DAILY FOR BLOOD PRESSURE 2) [id number] PENTOXIFYLLINE SA 400MG/PBO TAKE ONE TABLET BY MOUTH TWICE A DAY WITH FOOD. SWALLOW WHOLE-DO NOT CHEW, CRUSH OR CUT 15 Total Medications No Active Remote Medications for this patient - RECONCILIATION REVIEW: - Discharge medication list was compared to the patient's inpatient list of medications, medication list prior to admission, and active outpatient profile. 1. Inpatient Medications to be discontinued: -loperamide 2. New Outpatient Medications: -none 3. Outpatient Medication Changes/Dose Adjustments: -none 4. Outpatient Medications to be discontinued: -none 5. Outpatient Medications held on admission to resume upon discharge: -chlorthalidone -lisinopril -pentoxyfylline -metformin 6. Discrepancies between inpatient/outpatient profile and discharge regimen: *Spoke with : -okay to resume held meds above? Yes per MD. -Gabapentin: CrCl 40ml/min today but improving--adjust dose or resume home dose at d/c? Per Md okay to resume home dose as WILLIS is improving, also okay to refill med per pt request. Time spent reviewing chart: 15 Minutes PBM PharmD Pharmacotherapy Rem V12: Discharge counseling provided Medication reconciliation (changes to active VA and non-VA medication lists to reconcile differences) No changes to medication lists made (medication review completed, no discrepancies identified) /arleth/ AKI LOZOYA, PHARM.D. CLINICAL PHARMACIST Signed: 04/18/2024 11:52 AKI LOZOYA-[facility]
--- OUTSIDE RECORDS SUMMARY | 2024-05-05 10:15 | XMS_ITS | Encounter Summary ---
Author Name [facility] [facility] [place] [facility] [place] Address [address] [place] [address] Care Team Providers Care Shift Stacker Name Role Phone DEJAN GUTIERREZ Primary Care Provider Unavailabl e Insurance Providers: [...] RISSA SHIRLEY Mar 04, 2012 RISSA RODRIGUEZ [id number] NORMA SHELBY PATIENT [facility] (WNR) MEDICARE ADVANTAGE [facility] (WNR) Jul 30, 2017 [id number] HERON,NORMAJoel PARIS PATIENT [facility] (WNR) MEDICARE ADVANTAGE [facility](W NR) Jul 30, 2017 [id number] HERONNORMAJoel [place] PATIENT [facility] [facility] (WNR) [facility]GANIZ MEDIC ARE BRAULIO Connell Jul 30, 2012 [id number] NORMA SHELBY PATIENT MEDICARE (WNR) MEDICARE (M) PART A Jul 30, 2017 PART A [id number] NORMA SHELBY PATIENT MEDICARE (WNR) MEDICARE (M) PART B Jul 30, 2017 PART B [id number] NORMA SHELBY PATIENT MEDICARE PART D (WNR) PRESCRIPT ION PART D Jul 30, 2017 PART D [id number] NOMRA SHELBY PATIENT MEDICARE PART D (WNR) MEDICARE (M) PART D Jul 30, 2017 PART D [id number] 50 NORMA SHELBY PATIENT MEDICARE PART D (WNR) MEDICARE (M) PART D Jul 30, 2017 PART D [id number] [id number] NORMA SHELBY PATIENT MEDICARE PART D (WNR) MEDICARE (M) PART D Jul 30, 2012 PART D [id number] NORMA SHELBY PATIENT Selected Encounter This section includes the information on record at CT for the Encounter. Date/Time Encounter Type Encounter Description Reason Pro vider Source May 05, 2024 02:15 PM Outpatient Encounter PRIMARY CARE/MEDICINE IHE Encounter Template Text not used by CT Plan of Treatment: Future Appointments (+ 6 months) and Future Tests (+/- 45 days) The Plan of Treatment section includes future care activities for the patient from all CT treatmentfacilities. This section includes future appointments and future orders which are active, pending or scheduled. Future Appointments This section includes appointments that were scheduled to occur 6 months from the date of the Encounter, up to a maximum of 20 appointments. The data comes from all CT treatment facilities. Appointment Date/Time Appointment Type Appointme nt Facility Name May 09, 2024 10:30 AM AMBULATORY - MEDICINE [facility] May 20, 2024 11:00 AM AMBULATORY - MEDICINE [facility] Jun 25, 2024 09:45 AM AMBULATORY - MEDICINE [facility] Jul 08, 2024 01:40 PM AMBULATORY - SURGERY [facility] Sep 16, 2024 01:20 PM AMBULATORY - MEDICINE [facility] Oct 20, 2024 11:20 AM AMBULATORY - MEDICINE [facility] Oct 29, 2024 10:30 AM AMBULATORY - SURGERY IVORY [facility] Active, Pending, and Scheduled Orders This section includes a listing of several types of active, pending, and scheduled orders, including clinic medications orders, diagnostic test orders, procedure orders and consult orders; where the start date of the order is 45 days before the date of the Encounter or 45 days after the date of theEncounter. The data comes from all CT treatment facilities. Test Date/Time Test Type Test Details Facility Name Apr 15, 2024 02:03 PM Laboratory - Chemi stry Order CBC/PLT [id number] BLOOD STAT WC ONCE [facility] Lab Results: +/- 30 days of the [...] Type Comment May 05, 2024 02:08 PM [facility] N PANEL 1 PLASMA Specimen Type: PLASMA [...] Apr 21, 2024 11:25 AM Reporting Lab: [address] [address] Performing Lab: [address] [address] CREATININE 2.39 mg/dL H 0.72-1.25 UREA NITROGEN 30 mg/dL H 9-25 GLUCOSE 126 mg/dL H 74-100 SODIUM 140 mmol/L 136-145 POTASSIUM 5.0 mmol/L 3.5-5.1 CHLORIDE 110 mmol/L H 98-107 CO2 21 mmol/L L 22-29 CALCIUM 9.9 mg/dL 8.4-10.2 ANION GAP 9 meq/L 3-19 eGFR (CKD-EPI) Apr 18, 2024 11:13 AM [facility] GLUCOSE-HAND MONITOR CAPILLARY Specime n Type: CAPILLARY Comment: Test performed by: [id number] Meter #: [id number] Ordering Provider: CHERYL HURT Report Released Date/Time: Apr 18, 2024 11:44 AM Reporting Lab: [address] [address] Performing Lab: [address] [address] GLUCOSE-HAND MONITOR 110 mg/dL H 71-99 Apr 18, 2024 07:58 AM [facility] PANEL 1 PLASMA Specimen Type: PLASM A [...] Apr 17, 2024 03:26 PM Reporting Lab: [address] [address] Performing Lab: [address] [address] CREATININE 2.05 mg/dL H 0.72-1.25 UREA NITROGEN 28 mg/dL H 9-25 GLUCOSE 177 mg/dL H 74-100 SODIUM 137 mmol/L 136-145 POTASSIUM 4.3 mmol/L 3.5-5.1 CHLORIDE 109 mmol/L H 98-107 CO2 21 mmol/L L 22-29 CALCIUM 8.6 mg/dL 8.4-10.2 ANION GAP 7 meq/L 3-19 eGFR (CKD-EPI) 32 Apr 18, 2024 07:00 AM [facility] GLUCOSE-HAND MONITOR CAPILLARY Specime n Type: CAPILLARY Comment: CARLOS RN notified Test performed by: [id number] Meter #: [id number] Ordering Provider: CHERYL HURT Report Released Date/Time: Apr 18, 2024 07:22 AM Reporting Lab: [place] [phone] Performing Lab: [place] [phone] GLUCOSE-HAND MONITOR 127 mg/dL H Apr 17, 2024 08:26 PM [facility] GLUCOSE-HAND MONITOR CAPILLARY Specime n Type: CAPILLARY Comment: CARLOS RN notified Test performed by: [id number] Meter #: [id number] Ordering Provider: CHERYL HURT Report Released Date/Time: Apr 17, 2024 09:24 PM Reporting Lab: [address] [address] Performing Lab: [place] [phone] GLUCOSE-HAND MONITOR 164 mg/dL H Apr 17, 2024 04:45 PM [facility] GLUCOSE-HAND MONITOR CAPILLARY Specime n Type: CAPILLARY Comment: CARLOS RN notified Test performed by: [id number] Meter #: [id number] Ordering Provider: CHERYL HURT Report Released Date/Time: Apr 17, 2024 05:19 PM Reporting Lab: [address] [address] Performing Lab: [address] [address] GLUCOSE-HAND MONITOR 161 mg/dL H Apr 17, 2024 12:11 PM [facility] GLUCOSE-HAND MONITOR CAPILLARY Specime n Type: CAPILLARY Comment: Test performed by: [id number] Meter #: [id number] Ordering Provider: CHERYL HURT Report Released Date/Time: Apr 17, 2024 12:46 PM Reporting Lab: [address] [address] Performing Lab: [address] [address] GLUCOSE-HAND MONITOR 116 mg/dL H 71-99 Apr 17, 2024 07:33 AM [facility] PANEL 1 PLASMA Specimen Type: PLASM A [...] Apr 16, 2024 03:40 PM Reporting Lab: [place] [phone] Performing Lab: [place] [phone] CREATININE 2.39 mg/dL H 0.72-1.25 UREA NITROGEN 35 mg/dL H 9-25 GLUCOSE 117 mg/dL H 74-100 SODIUM 138 mmol/L 136-145 POTASSIUM 4.3 mmol/L 3.5-5.1 CHLORIDE 110 mmol/L H 98-107 CO2 22 mmol/L 22-29 CALCIUM 8.7 mg/dL 8.4-10.2 ANION GAP 6 meq/L 3-19 eGFR (CKD-EPI) Apr 17, 2024 07:33 AM [facility] CBC/PLT BLOOD Specimen Type: BLOOD No comment entered. Ordering Provider: EDGARDO GARCIA Report Released Date/Time: Apr 16, 2024 03:40 PM Reporting Lab: [place] [phone] Performing Lab: [address] [address] WBC 8.8 10*3/uL 5.0-10.0 RBC 4.05 10*6/uL L 4.6-6.2 HGB 11.4 g/dL L 14.0-18.0 HCT 36.1 L 42.0-52.0 MCV 89.1 fL 80.0-94.0 MCH 28.1 pg 27.0-31.0 MCHC 31.6 g/dL L 32.0-36.0 PLT 165 10*3/uL 150-450 MPV 10.4 fL 9.0-13.1 RDW 13.4 11.0-16.0 NRBC 0.0 0.0-0.0 Apr 17, 2024 06:55 AM [facility] GLUCOSE-HAND MONITOR CAPILLARY Specime n Type: CAPILLARY Comment: CARLOS ELLIS notified Test performed by: [id number] Meter #: [id number] Ordering Provider: CHERYL HURT Report Released Date/Time: Apr 17, 2024 07:16 AM Reporting Lab: [address] [address] Performing Lab: [address] [address] GLUCOSE-HAND MONITOR 125 mg/dL H Apr 16, 2024 08:45 PM [facility] GLUCOSE-HAND MONITOR CAPILLARY Specime n Type: CAPILLARY Comment: CARLOS RN notified Test performed by: [id number] Meter #: [id number] Ordering Provider: CHERYL HURT Report Released Date/Time: Apr 16, 2024 10:14 PM Reporting Lab: [address] [address] Performing Lab: [address] [address] GLUCOSE-HAND MONITOR 138 mg/dL H Apr 16, 2024 04:48 PM [facility] GLUCOSE-HAND MONITOR CAPILLARY Specime n Type: CAPILLARY Comment: CARLOS RN notified Test performed by: [id number] Meter #: [id number] Ordering Provider: CHERYL HURT Report Released Date/Time: Apr 16, 2024 05:42 PM Reporting Lab: [address] [address] Performing Lab: [address] [address] GLUCOSE-HAND MONITOR 110 mg/dL H Apr 16, 2024 12:03 PM [facility] GLUCOSE-HAND MONITOR CAPILLARY Specime n Type: CAPILLARY Comment: CARLOS RN notified Test performed by: [id number] Meter #: [id number] Ordering Provider: CHERYL HURT Report Released Date/Time: Apr 16, 2024 01:01 PM Reporting Lab: [address] [address] Performing Lab: [address] [address] GLUCOSE-HAND MONITOR 126 mg/dL H Apr 16, 2024 08:10 AM [facility] CBC/PLT BLOOD Specimen Type: BLOOD No comment entered. Ordering Provider: EDGARDO GARCIA Report Released Date/Time: Apr 15, 2024 11:24 PM Reporting Lab: [address] [address] Performing Lab: [facility] [address] [facility] [address] WBC 9.5 10*3/uL 5.0-10.0 RBC 4.19 10*6/uL L 4.6-6.2 HGB 11.6 g/dL L 14.0-18.0 HCT 37.0 L 42.0-52.0 MCV 88.3 fL 80.0-94.0 MCH 27.7 pg 27.0-31.0 MCHC 31.4 g/dL L 32.0-36.0 PLT 163 10*3/uL 150-450 MPV 10.4 fL 9.0-13.1 RDW 13.5 11.0-16.0 NRBC 0.0 0.0-0.0 Apr 16, 2024 08:10 AM [facility] PANEL 1 PLASMA Specimen Type: PLASM A [...] Apr 15, 2024 11:24 PM Reporting Lab: [address] [address] Performing Lab: [address] [address] CREATININE 3.29 mg/dL H 0.72-1.25 UREA NITROGEN 40 mg/dL H 9-25 GLUCOSE 151 mg/dL H 74-100 SODIUM 136 mmol/L 136-145 POTASSIUM 3.7 mmol/L 3.5-5.1 CHLORIDE 109 mmol/L H 98-107 CO2 18 mmol/L L 22-29 CALCIUM 8.5 mg/dL 8.4-10.2 ANION GAP 9 meq/L 3-19 eGFR (CKD-EPI) Apr 16, 2024 06:43 AM [facility] GLUCOSE-HAND MONITOR CAPILLARY Specime n Type: CAPILLARY Comment: Test performed by: [id number] Meter #: [id number] Ordering Provider: CHERYL HURT Report Released Date/Time: Apr 16, 2024 07:14 AM Reporting Lab: [address] [address] Performing Lab: [address] [address] GLUCOSE-HAND MONITOR 111 mg/dL H 71-99 Apr 16, 2024 06:00 AM [facility] MRSA SURVL NARES DNA NARES Specime n [...] Apr 15, 2024 11:24 PM Reporting Lab: [place] [phone] Performing Lab: [place] [phone] MRSA SURVL NARES DNA Negative Negative Apr 15, 2024 11:44 PM [facility] GLUCOSE-HAND MONITOR CAPILLARY Specime n Type: CAPILLARY Comment: Test performed by: [id number] Meter #: [id number] Ordering Provider: CHERYL HURT Report Released Date/Time: Apr 16, 2024 12:31 AM Reporting Lab: [place] [phone] Performing Lab: [place] [phone] GLUCOSE-HAND MONITOR 149 mg/dL H 71-99 Apr 15, 2024 07:21 PM [facility] OVA AND PARASITE EXAM, GIARDIA (LC) FECES Specimen Type: FECES Comment: No ova, cysts, or parasites seen. . One negative specimen does not rule out the possibility of a parasitic infection. Ordering Provider: CARRINGTON GRISSOM Report Released Date/Time: Apr 15, 2024 06:03 PM Reporting Lab: [address] [address] Performing Lab: [facility] [address] [facility] [address] .OVA & PARASITE EXAM (LC) Comment .GIARDIA EIA (LC) Negative Negative Apr 15, 2024 07:21 PM [facility] C DIFF TOXIN BY PCR/REFLEX TO EIA [...] Apr 15, 2024 06:03 PM Reporting Lab: [place] [phone] Performing Lab: [place] [phone] C DIFF TOX B GENE PCR Negative Negative Apr 15, 2024 07:21 PM [facility] WBC FECES (LACTOFERRIN) FECES Spec imen Type: FECES No comment entered. Ordering Provider: CARRINGTON GRISSOM Report Released Date/Time: Apr 15, 2024 06:03 PM Reporting Lab: [place] [phone] Performing Lab: [place] [phone] WBC FECES (LACTOFERRIN) POSITIVE Negativ e Apr 15, 2024 05:53 PM [facility] URINE LYTES URINE Specimen Type : URINE No comment entered. Ordering Provider: CARRINGTON GRISSOM Report Released Date/Time: Apr 15, 2024 04:12 PM Reporting Lab: [place] [phone] Performing Lab: [place] [phone] SODIUM 42 mmol/L POTASSIUM 20.7 mmol/L CHLORIDE 28 mmol/L Apr 15, 2024 05:53 PM [facility] URINALYSIS URINE Specimen Type : URINE No comment entered. Ordering Provider: CARRINGTON GRISSOM Report Released Date/Time: Apr 15, 2024 02:03 PM Reporting Lab: [place] [phone] Performing Lab: [place] [phone] URINE COLOR Yellow Colorless-Yellow APPEARANCE CLOUDY H [...] H None Apr 15, 2024 05:26 PM [facility] MRSA SURVL NARES DNA NARES Specime n [...] Apr 15, 2024 04:28 PM Reporting Lab: [address] [address] Performing Lab: [address] [address] MRSA SURVL NARES DNA Negative Negative Apr 15, 2024 02:41 PM [facility] LACTIC ACID PLASMA Specimen Type : PLASMA No comment entered. Ordering Provider: CARRINGTON GRISSOM Report Released Date/Time: Apr 15, 2024 02:03 PM Reporting Lab: [address] [address] Performing Lab: [address] [address] LACTIC ACID 1.4 mmol/L 0.5-2.2 Apr 15, 2024 02:41 PM [facility] LIPASE PLASMA Specimen Type: PLASM A Comment: [...] Apr 15, 2024 02:03 PM Reporting Lab: [address] [address] Performing Lab: [address] [address] LIPASE 11 U/L 878 Apr 15, 2024 02:41 PM [facility] PANEL 2 PLASMA Specimen Type: PLASM A [...] Apr 15, 2024 02:03 PM Reporting Lab: [address] [address] Performing Lab: [address] [address] TOTAL PROTEIN 7.2 g/dL 6.4-8.3 ALBUMIN 3.8 g/dL 3.5-5.2 TOTAL BILIRUBIN 0.6 mg/dL 0.2-1.2 AST 21 U/L 5-34 ALT 18 U/L 0-55 ALK PHOS 60 U/L 40-150 BILIRUBIN-DIRECT 0.2 mg/dL 0.0-0.5 Apr 15, 2024 02:41 PM [facility] PANEL 1 PLASMA Specimen Type: PLASM A [...] Apr 15, 2024 02:03 PM Reporting Lab: [address] [address] Performing Lab: [address] [address] CREATININE 4.52 mg/dL H 0.72-1.25 UREA NITROGEN 41 mg/dL H 9-25 GLUCOSE 110 mg/dL H 74-100 SODIUM 135 mmol/L L 136-145 POTASSIUM 3.9 mmol/L 3.5-5.1 CHLORIDE 104 mmol/L 98-107 CO2 20 mmol/L L 22-29 CALCIUM 8.8 mg/dL 8.4-10.2 ANION GAP 11 meq/L 3-19 eGFR (CKD-EPI) 12 Apr 15, 2024 02:41 PM [facility] CBC/PLT BLOOD Specimen Type: BLOOD Comment: ~STAT Ordering Provider: CARRINGTON GRISSOM Report Released Date/Time: Apr 15, 2024 02:03 PM Reporting Lab: [address] [address] Performing Lab: [address] [address] WBC 11.3 10*3/uL H 5.0-10.0 RBC 4.04 10*6/uL L 4.6-6.2 HGB 11.5 g/dL L 14.0-18.0 HCT 36.3 L 42.0-52.0 MCV 89.9 fL 80.0-94.0 MCH 28.5 pg 27.0-31.0 MCHC 31.7 g/dL L 32.0-36.0 PLT 166 10*3/uL 150-450 MPV 10.6 fL 9.0-13.1 RDW 13.6 11.0-16.0 NRBC 0.0 0.0-0.0 Apr 15, 2024 02:41 PM [facility] Specimen Type: PLASM A Comment: [...] Apr 15, 2024 02:03 PM Reporting Lab: [address] [address] Performing Lab: [address] [address] PROCALCITONIN[facility] 0.91 ng/mL H 0.00-0.50 Apr 15, 2024 02:41 PM [facility] COVID-19 AND FLU/RSV DIAGNOSTIC PANEL NASOPH ARYNX [...] Food and Drug Administration's Emergency Use Authorization. [employer] (596) Ordering Provider: CARRINGTON GRISSOM Report Released Date/Time: Apr 15, 2024 02:03 PM Reporting Lab: [place] [phone] Performing Lab: [place] [address] COVID-19 PCR (FLUVID) Negative Negative FLU A PCR (FLUVID) Negative Negative FLU B PCR (FLUVID) Negative Negative RSV PCR (FLUVID) Negative Negative Apr 15, 2024 02:41 PM [facility] AUTOMATED DIFF BLOOD Specimen Type : BLOOD Comment: ~STAT Ordering Provider: CARRINGTON GRISSOM Report Released Date/Time: Apr 15, 2024 02:03 PM Reporting Lab: [place] [phone] Performing Lab: [place] [phone] A-LYMPH % 21.9 L 24.0-44.0 A-MONO % 14.9 H 0.1-6.0 A-GRAN % 58.9 42.0-75.0 A-LYMPH # 2.47 10*3/uL 1.20-3.40 A-MONO # 1.68 10*3/uL H 0.00-0.60 A-GRAN # 6.63 10*3/uL H 1.40-6.50 A-BASO % 0.3 0.0-3.0 A-BASO # 0.03 10*3/uL 0.00-0.20 A-EOS % 3.7 0.0-10.0 A-EOS # 0.42 10*3/uL 0.00-0.70 A-IG % 0.3 0.0-0.5 A-IG # 0.03 10*3/uL 0.00-0.06 Apr 09, 2024 09:58 AM [facility] DRUG SCREEN IN-HOUSE ROUTINE URINE Specimen [...] Apr 08, 2024 10:18 AM Reporting Lab: [place] [phone] Performing Lab: [place] [phone] TETRAHYDROCANNABINOL SCREEN NEG AMPHETAMINE SCR NEG BARBITURATES SCR NEG BENZODIAZEPINES SCR NEG COCAINE METABOLITE SCR NEG OPIATES SCR NEG METHADONE SCR NEG OXYCODONE SCR NEG Apr 09, 2024 09:58 AM [facility] MICROALBUMIN/CREAT RATIO URINE Specimen Type: URINE No comment entered. Ordering Provider: DEJAN GUTIERREZ Report Released Date/Time: Apr 08, 2024 10:18 AM Reporting Lab: [place] [phone] Performing Lab: [place] [phone] CREATININE 116.7 mg/dL MICROALBUMIN QUANT 80.2 mg/L H 0.0-30.0 .MICROALBUMIN/CREA RATIO 68.7 ug/mg{creat} Apr 09, 2024 09:50 AM [facility] CBC/PLT BLOOD Specimen Type: BLOOD No comment entered. Ordering Provider: CAMILO MAYERS Report Released Date/Time: Apr 03, 2024 03:39 PM Reporting Lab: [place] [phone] Performing Lab: [address] [address] WBC 13.1 10*3/uL H 5.0-10.0 RBC 4.41 10*6/uL L 4.6-6.2 HGB 12.5 g/dL L 14.0-18.0 HCT 40.2 L 42.0-52.0 MCV 91.2 fL 80.0-94.0 MCH 28.3 pg 27.0-31.0 MCHC 31.1 g/dL L 32.0-36.0 PLT 191 10*3/uL 150-450 MPV 10.8 fL 9.0-13.1 RDW 13.2 11.0-16.0 NRBC 0.0 0.0-0.0 Apr 09, 2024 09:50 AM [facility] AUT[facility] DIFF BLOOD Specimen Type: BLOOD No comment entered. Ordering Provider: CAMILO MAYERS Report Released Date/Time: Apr 03, 2024 03:39 PM Reporting Lab: [address] [address] Performing Lab: [address] [address] A-LYMPH % 27.0 24.0-44.0 A-MONO % 9.7 [...] Apr 09, 2024 09:50 AM [facility]HE[facility]LOOD Specimen Type: BLOOD Comment: [facility] guidelines for A1c interpretation: Glycemic control targets are based on Shared Decision Making between clinicians and patients. Criteria used to establish an A1c target recommendation can be found at https://www.[place].gov/qualityandpatientsafety/ and include the use of result accuracy [...] 8.73 and 9.27. Ref: https://ngsp.org/CAPdata.asp. The in-house [employer].branch D-100 analyzer has a historical CV <= 2%. Contact the laboratory for further performance characteristics of this assay. Ordering Provider: DEJAN GUTIERREZ Report Released Date/Time: Apr 08, 2024 10:18 AM Reporting Lab: [address] [address] Performing Lab: [address] [address] GLYCOHEMOGLOBIN 6.4 4.4-6.4 Apr 09, 2024 09:50 AM [facility] LIPID PROFILE PLASMA Specimen Type: PLASM [...] Apr 08, 2024 10:18 AM Reporting Lab: [address] [address] Performing Lab: [address] [address] CHOLESTEROL 155 mg/dL 0-199 TRIGLYCERIDE 252 mg/dL H 0-149 HDL CHOLESTEROL 32 mg/dL L 40-69 DIRECT LDL CHOL. 81 mg/dL 0-100 Apr 09, 2024 09:50 AM [facility] FERRITIN PLASMA Specimen Type: PLASM A [...] Apr 08, 2024 10:18 AM Reporting Lab: [address] [address] Performing Lab: [address] [address] FERRITIN 40.1 ng/mL 21.8-274.7 Apr 09, 2024 09:50 AM [facility] TSH PLASMA Specimen Type: PLASM A [...] Apr 08, 2024 10:18 AM Reporting Lab: [address] [address] Performing Lab: [address] [address] TSH 7.3449 m[IU]/mL H 0.3500-4.9400 Apr 09, 2024 09:50 AM [facility] B12 VITAMIN PLASMA Specimen Type: PLASM [...] Apr 08, 2024 10:18 AM Reporting Lab: [address] [address] Performing Lab: [address] [address] B12 VITAMIN 513 pg/mL 213-816 Apr 09, 2024 09:50 AM [facility] 25-OH VITAMIN D SERUM Specime n [...] Apr 08, 2024 10:18 AM Reporting Lab: [facility] [address] [facility] [address] Performing Lab: [address] [address] 25-OH VITAMIN D 41.8 ng/mL 20.0-50.0 Apr 09, 2024 09:50 AM [facility] [address] MAGNESIUM PLASMA Specimen Type: PLASM A Comment: [...] Apr 08, 2024 10:18 AM Reporting Lab: [address] [address] Performing Lab: [address] [address] MAGNESIUM 2.0 mg/dL 1.6-2.6 Apr 09, 2024 09:50 AM [facility] PANEL 5 PLASMA Specimen Type: PLASM [...] Apr 08, 2024 10:18 AM Reporting Lab: [address] [address] Performing Lab: [address] [address] CREATININE 2.36 mg/dL H 0.72-1.25 UREA NITROGEN [...] PHOS 66 U/L 40-150 eGFR (CKD-EPI) 27 Social History: Smoking Status (Most current) and Tobacco Use (All prior to encounter date) This section includes the most current, and the historical, smoking and tobacco- related health factors from the [place] facility where the Encounter took place. Current Smoking Status This section includes the most current smoking, or tobacco-related health factor, from the [place] facility where the Encounter took place. Date/Time Current Smoking Status Comment Corbin torres Apr 09, 2024 10:30 AM [facility]ACCO FORMER USER [facility] Tobacco Use History This section includes a history of the smoking, or tobacco-related health factors, that were collected on or before the date of the Encounter. The data comes from the [place] facility where the Encounter took place. Date/Time Smoking Status/Tobacco Use Comment Kamila sarah Apr 09, 2024 10:[address]-TOBACCO QUIT 15 YRS OR MORE [facility] May 08, 2023 02:30 PM VA-TOBACCO FORMER USER [facility] May 08, 2023 02:30 PM VA-TOBACCO QUIT 5 TO < 15 YRS [facility] May 26, 2022 11:00 AM VA-TOBACCO FORMER USER [facility] May 26, 2022 11:00 AM VA-TOBACCO QUIT 5 TO < 15 YRS [facility] Jun 22, 2021 10:00 AM VA-TOBACCO FORMER USER [facility] Jun 22, 2021 10:00 AM VA-TOBACCO QUIT 5 TO < 15 YRS [facility] Jul 05, 2020 11:00 AM VA-TOBACCO FORMER USER [facility] Jul 05, 2020 11:00 AM VA-TOBACCO QUIT 5 TO < 15 YRS [facility] Apr 25, 2019 02:40 PM VA-TOBACCO FORMER USER [facility] Apr 25, 2019 02:40 PM VA-TOBACCO QUIT 5 TO < 15 YRS [facility] Jun 27, 2018 09:46 AM VA-TOBACCO FORMER USER [facility] Jun 27, 2018 09:46 AM VA-TOBACCO QUIT 5 TO < 15 YRS [facility] Jul 27, 2017 09:25 AM V9 LIFETIME NON-USER OF TOBACCO [facility] Aug 22, 2016 08:58 AM V9 LIFETIME NON-USER OF TOBACCO [facility] Sep 14, 2015 09:30 AM V9 LIFETIME NON-USER OF TOBACCO [facility] Sep 03, 2014 07:39 AM V9 LIFETIME NON-USER OF TOBACCO [facility] Apr 22, 2013 09:17 AM V9 QUIT TOBACCO IN THE LAST 12 MONTHS [facility] Jun 14, 2012 02:12 PM V9 QUIT TOBACCO >1 2 MO & <7 YRS AGO [facility] Feb 07, 2011 03:23 PM V9 QUIT TOBACCO >7 YEARS AGO [facility] Jan 20, 2010 02:15 PM V9 QUIT TOBACCO >7 YEARS AGO [facility] Radiology Reports: +/- 30 days of [...] the Encounter. The data comes from all CT treatment facilities. Date/Time Radiology Report Provider Source Apr 15, 2024 05:07 PM CHEST TWO(2) VIEW PA&LAT: CHELSEY SHELBY [id number] -[id number] M Exm Date: APR 15, 2024@17:07 Req Phys: CARRINGTON GRISSOM Loc: ED/7A-4PM (Req'g Loc) Img Loc: [facility] RADIOLOGY Service: [place] [address] (Case [id number] COMPLETE) CHEST TWO(2) VIEW PA&LAT (RAD Detailed) CPT:90383 Reason for Study: possible admission, diarrhea for 5 days , willis. Clinical History: Report Status: Verified Date Reported: APR 15, 2024 Date Verified: APR 15, 2024 Vacuum Pan Tender E-Sig: Report: PA and lateral chest CLINICAL [...] Interpreting Staff: JAMARI GALEANA, RADIOLOGIST Verified by phosphoric acid supervisor for JAMARI GALEANA /JAMARI [facility] Apr 15, 2024 05:[address] ABD/PELVIS W/O CONT (RENAL STONE PROTOCOL): CHELSEY SHELBY [id number] -[id number] M Exm Date: APR 15, 2024@17:00 Req Phys: CARRINGTON GRISSOM Loc: ED/7A-4PM (Req'g Loc) Img Loc: CT SCAN Service: [place] [address] (Case [id number] COMPLETE) CT ABD/PELVIS W/O CONTRAST (CT Detailed) CPT:88585 Reason for Study: SEE CLINICAL HISTORY Clinical History: 22. Suspected diverticulitis HISTORY/REASON FOR EXAM: patient with WILLIS and diarrhea for 5 days white count about 11. No specifica abdominal pain. Report Status: Verified Date Reported: APR 15, 2024 Date Verified: APR 15, 2024 Vacuum Pan Tender E-Sig: Report: HISTORY SEE CLINICAL [id number]. Suspected diverticulitisHISTORY/REASON FOR EXAM:patient with WILLIS and [...] SIGNIFICANT ABNORMALITY, ATTN NEEDED Primary Interpreting Staff: ANDRWE GARCIA, Staff Physician Verified by phosphoric acid supervisor for ANDREW GARCIA /[facility] Encounter Notes: All associated encounter notes This section contains the clinical notes associated to the Encounter. Date/Time Encounter Note(s) Provider Source May 07, 2024 09:36 AM ADDENDUM: LOCAL TITLE: Addendum STANDARD TITLE: ADDENDUM DATE OF NOTE: MAY 07, 2024@09:36:41 ENTRY DATE: MAY 07, 2024@09:36:42 AUTHOR: JOANA GEORGE EXP COSIGNER: URGENCY: STATUS: COMPLETED schedule [facility] ATT3 appt for 05/09/24 @ 1030am to discuss labs with Dr Gardner. /arleth/ JAONA GEORGE RN CCM Diabetes/Endocrine/Featherer Signed: 05/07/2024 09:37 Receipt Acknowledged By: 05/07/2024 10:02 /es/ KORTNEY BURGOS msa === --- Original Document --- 05/05/24 Pc Telephone Care Note: Called to check on, since pt. did not show for BP check. He did come in to get blood test today, but was not aware that he needed to go to get his BP checked. Agreeable to [facility] tomorrow with RN to check BP at 1300. /arleth/ Sole Weston RN staff midwife Signed: 05/05/2024 15:38 05/06/2024 ADDENDUM STATUS: COMPLETED PLASMA May 05 Apr 18 Sep Mar 18 Reference 2023 2023 2023 2023 14:08 Units Ranges ---- NA 140 137 138 136 mmol/L 136 - 145 K 5.0 4.3 4.3 3.7 mmol/L 3.5 - 5.1 CL 110 H 109 H 110 H 109 H mmol/L 98 - 107 CO2 21.0 L 21.0 L 22.0 18.0 L mmol/L 22 - 29 GLUC 126 H 177 H 117 H 151 H mg/dl 74 - 100 UN 30.0 H 28.0 H 35.0 H 40.0 H mg/dL 9 - 25 CREAT 2.39 H 2.05 H 2.39 H 3.29 H mg/dL .72 - 1.25 Would verify meds he is taking and follow low K diet. CKD has worsened to CKD 4 in past 6+ months, continue renal clinic. /arleth/ Dejan Gutierrez MD Primary Care Attending Signed: 05/06/2024 07:46 Receipt Acknowledged By: 05/07/2024 08:24 /arleth/ Sole Weston,staff midwife RN 05/06/2024 ADDENDUM STATUS: COMPLETED Forwarding va to Renal; PLASMA May 05 Apr 18 Apr 17 Apr 16 Reference 2023 2023 2023 2023 14:08 Units Ranges ---- NA 140 137 138 136 mmol/L 136 - 145 K 5.0 4.3 4.3 3.7 mmol/L 3.5 - 5.1 CL 110 H 109 H 110 H 109 H mmol/L 98 - 107 CO2 21.0 L 21.0 L 22.0 18.0 L mmol/L 22 - 29 GLUC 126 H 177 H 117 H 151 H mg/dl 74 - 100 UN 30.0 H 28.0 H 35.0 H 40.0 H mg/dL 9 - 25 CREAT 2.39 H 2.05 H 2.39 H 3.29 H mg/dL .72 - 1.25 Would verify meds he is taking and follow low K diet. CKD has worsened to CKD 4 in past 6+ months, continue renal clinic. /arleth/ Sole Weston,staff midwife RN Signed: 05/06/2024 12:56 Receipt Acknowledged By: 05/06/2024 12:59 /chema GEORGE RN CCM Diabetes/Endocrine/Featherer 05/06/2024 ADDENDUM STATUS: COMPLETED forwarding to renal provider for review, does he need sooner appt than [facility] for July 2024? /chema GEORGE RN CCM Diabetes/Endocrine/Featherer Signed: 05/06/2024 13:00 Receipt Acknowledged By: 05/06/2024 15:13 /cheam GARDNER staff physician 05/06/2024 ADDENDUM STATUS: COMPLETED It appears he unfortunately suffered an WILLIS due to diarrheal illness and likely did not recover to previous baseline kidney function. Please see if he'd like to either come in for a face to face visit 05/09 or be scheduled for a phone visit. Please keep the July visit as scheduled even if he does a visit end of this week. /chema GARDNER staff physician Signed: 05/06/2024 16:56 Receipt Acknowledged By: 05/07/2024 09:36 /chema GEORGE RN CCM Diabetes/Endocrine/Featherer JOANA GEORGE [facility] May 06, 2024 04:55 PM ADDENDUM: LOCAL TITLE: Addendum STANDARD TITLE: ADDENDUM DATE OF NOTE: MAY 06, 2024@16:55:18 ENTRY DATE: MAY 06, 2024@16:55:19 AUTHOR: JOSR GARDNER EXP COSIGNER: URGENCY: STATUS: COMPLETED It appears he unfortunately suffered an WILLIS due to diarrheal illness and likely did not recover to previous baseline kidney function. Please see if he'd like to either come in for a face to face visit 05/09 or be scheduled for a phone visit. Please keep the July visit as scheduled even if he does a visit end of this week. /chema GARDNER staff physician Signed: 05/06/2024 16:56 Receipt Acknowledged By: 05/07/2024 09:36 /chema GEORGE RN CCM Diabetes/Endocrine/Featherer === --- Original Document --- 05/05/24 Pc Telephone Care Note: Called to check on, since pt. did not show for BP check. He did come in to get blood test today, but was not aware that he needed to go to get his BP checked. Agreeable to [facility] tomorrow with RN to check BP at 1300. /arleth/ Sole Westonstaff midwife RN Signed: 05/05/2024 15:38 05/06/2024 ADDENDUM STATUS: COMPLETED PLASMA May 05 Apr 18 Apr 17 Apr 16 Reference 2023 2023 2023 2023 14:08 Units Ranges ---- NA 140 137 138 136 mmol/L 136 - 145 K 5.0 4.3 4.3 3.7 mmol/L 3.5 - 5.1 CL 110 H 109 H 110 H 109 H mmol/L 98 - 107 CO2 21.0 L 21.0 L 22.0 18.0 L mmol/L 22 - 29 GLUC 126 H 177 H 117 H 151 H mg/dl 74 - 100 UN 30.0 H 28.0 H 35.0 H 40.0 H mg/dL 9 - 25 CREAT 2.39 H 2.05 H 2.39 H 3.29 H mg/dL .72 - 1.25 Would verify meds he is taking and follow low K diet. CKD has worsened to CKD 4 in past 6+ months, continue renal clinic. /arleth/ Dejan Gutierrez MD Primary Care Attending Signed: 05/06/2024 07:46 Receipt Acknowledged By: 05/07/2024 08:24 /arleth/ Sole Weston,staff midwife RN 05/06/2024 ADDENDUM STATUS: COMPLETED Forwarding va to Renal; PLASMA May 05 Apr 18 Apr 17Mar 18 Reference 2023 2023 2023 2023 14:08 Units Ranges ---- NA 140 137 138 136 mmol/L 136 - 145 K 5.0 4.3 4.3 3.7 mmol/L 3.5 - 5.1 CL 110 H 109 H 110 H 109 H mmol/L 98 - 107 CO2 21.0 L 21.0 L 22.0 18.0 L mmol/L 22 - 29 GLUC 126 H 177 H 117 H 151 H mg/dl 74 - 100 UN 30.0 H 28.0 H 35.0 H 40.0 H mg/dL 9 - 25 CREAT 2.39 H 2.05 H 2.39 H 3.29 H mg/dL .72 - 1.25 Would verify meds he is taking and follow low K diet. CKD has worsened to CKD 4 in past 6+ months, continue renal clinic. /arleth/ Sole Weston RN staff midwife Signed: 05/06/2024 12:56 Receipt Acknowledged By: 05/06/2024 12:59 /arleth/ JOANA GEORGE RN [facility] Diabetes/Endocrine/Featherer 05/06/2024 ADDENDUM STATUS: COMPLETED forwarding to renal provider for review, does he need sooner appt than [facility] for July 2024? /arleth/ JOANA GEORGE RN [facility] Diabetes/Endocrine/Featherer Signed: 05/06/2024 13:00 Receipt Acknowledged By: 05/06/2024 15:13 /arleth/ JOSR GARDNER staff physician 05/07/2024 ADDENDUM STATUS: COMPLETED schedule [facility] ATT3 appt for 05/09/24 @ 1030am to discuss labs with Dr Gardner. /arleth/ JOANA GEORGE RN [facility] Diabetes/Endocrine/Featherer Signed: 05/07/2024 09:37 Receipt Acknowledged By: * AWAITING SIGNATURE * KORTNEY BURGOS MEGAN [facility] May 06, 2024 12:59 PM ADDENDUM: LOCAL TITLE: Addendum STANDARD TITLE: ADDENDUM DATE OF NOTE: MAY 06, 2024@12:59:56 ENTRY DATE: MAY 06, 2024@12:59:56 AUTHOR: JOANA GEORGE EXP COSIGNER: URGENCY: STATUS: COMPLETED forwarding to renal provider for review, does he need sooner appt than [place] for July 2024? /es/ JOANA GEORGE RN [facility] Diabetes/Endocrine/Featherer Signed: 05/06/2024 13:00 Receipt Acknowledged By: 05/06/2024 15:13 /es/ JOSR GARDNER staff physician === --- Original Document --- 05/05/24 Pc Telephone Care Note: Called to check on, since pt. did not show for BP check. He did come in to get blood test today, but was not aware that he needed to go to get his BP checked. Agreeable to [facility] tomorrow with RN to check BP at 1300. /es/ Sole Weston RN staff midwife Signed: 05/05/2024 15:38 05/06/2024 ADDENDUM STATUS: COMPLETED PLASMA May 05 Apr 18 Apr 17 Apr 16 Reference 2023 2023 2023 2023 14:08 Units Ranges ---- NA 140 137 138 136 mmol/L 136 - 145 K 5.0 4.3 4.3 3.7 mmol/L 3.5 - 5.1 CL 110 H 109 H 110 H 109 H mmol/L 98 - 107 CO2 21.0 L 21.0 L 22.0 18.0 L mmol/L 22 - 29 GLUC 126 H 177 H 117 H 151 H mg/dl 74 - 100 UN 30.0 H 28.0 H 35.0 H 40.0 H mg/dL 9 - 25 CREAT 2.39 H 2.05 H 2.39 H 3.29 H mg/dL .72 - 1.25 Would verify meds he is taking and follow low K diet. CKD has worsened to CKD 4 in past 6+ months, continue renal clinic. /arleth/ Dejan Gutierrez MD Primary Care Attending Signed: 05/06/2024 07:46 Receipt Acknowledged By: * AWAITING SIGNATURE * SOLE WESTON 05/06/2024 ADDENDUM STATUS: COMPLETED Forwarding va to Renal; PLASMA May 05 Apr 18 Apr 17 Apr 16 Reference 2023 2023 2023 2023 14:08 Units Ranges ---- NA 140 137 138 136 mmol/L 136 - 145 K 5.0 4.3 4.3 3.7 mmol/L 3.5 - 5.1 CL 110 H 109 H 110 H 109 H mmol/L 98 - 107 CO2 21.0 L 21.0 L 22.0 18.0 L mmol/L 22 - 29 GLUC 126 H 177 H 117 H 151 H mg/dl 74 - 100 UN 30.0 H 28.0 H 35.0 H 40.0 H mg/dL 9 - 25 CREAT 2.39 H 2.05 H 2.39 H 3.29 H mg/dL .72 - 1.25 Would verify meds he is taking and follow low K diet. CKD has worsened to CKD 4 in past 6+ months, continue renal clinic. /arleth/ Sole Weston RN staff midwife Signed: 05/06/2024 12:56 Receipt Acknowledged By: 05/06/2024 12:59 /arleth/ JOANA GEORGE RN [facility] Diabetes/Endocrine/Featherer JOANA GEORGE [facility] May 06, 2024 12:55 PM ADDENDUM: LOCAL TITLE: Addendum STANDARD TITLE: ADDENDUM DATE OF NOTE: MAY 06, 2024@12:55:46 ENTRY DATE: MAY 06, 2024@12:55:47 AUTHOR: SOLE WESTON EXP COSIGNER: URGENCY: STATUS: COMPLETED Forwarding va to Renal; PLASMA May 05 Apr 18 Apr 17 Apr 16 Reference 2023 2023 2023 2023 14:08 Units Ranges ---- NA 140 137 138 136 mmol/L 136 - 145 K 5.0 4.3 4.3 3.7 mmol/L 3.5 - 5.1 CL 110 H 109 H 110 H 109 H mmol/L 98 - 107 CO2 21.0 L 21.0 L 22.0 18.0 L mmol/L 22 - 29 GLUC 126 H 177 H 117 H 151 H mg/dl 74 - 100 UN 30.0 H 28.0 H 35.0 H 40.0 H mg/dL 9 - 25 CREAT 2.39 H 2.05 H 2.39 H 3.29 H mg/dL .72 - 1.25 Would verify meds he is taking and follow low K diet. CKD has worsened to CKD 4 in past 6+ months, continue renal clinic. /arleth/ Sole Weston RN staff midwife Signed: 05/06/2024 12:56 Receipt Acknowledged By: 05/06/2024 12:59 /arleth/ JOANA GEORGE RN [facility] Diabetes/Endocrine/Featherer === --- Original Document --- 05/05/24 Pc Telephone Care Note: Called to check on, since pt. did not show for BP check. He did come in to get blood test today, but was not aware that he needed to go to get his BP checked. Agreeable to [facility] tomorrow with RN to check BP at 1300. /arleth/ Sole Weston RN staff midwife Signed: 05/05/2024 15:38 05/06/2024 ADDENDUM STATUS: COMPLETED PLASMA May 05 Apr 18 Apr 17 Apr 16 Reference 2023 2023 2023 2023 14:08 Units Ranges ---- NA 140 137 138 136 mmol/L 136 - 145 K 5.0 4.3 4.3 3.7 mmol/L 3.5 - 5.1 CL 110 H 109 H 110 H 109 H mmol/L 98 - 107 CO2 21.0 L 21.0 L 22.0 18.0 L mmol/L 22 - 29 GLUC 126 H 177 H 117 H 151 H mg/dl 74 - 100 UN 30.0 H 28.0 H 35.0 H 40.0 H mg/dL 9 - 25 CREAT 2.39 H 2.05 H 2.39 H 3.29 H mg/dL .72 - 1.25 Would verify meds he is taking and follow low K diet. CKD has worsened to CKD 4 in past 6+ months, continue renal clinic. /arleth/ Dejan Gutierrez MD Primary Care Attending Signed: 05/06/2024 07:46 Receipt Acknowledged By: * AWAITING SIGNATURE * SOLE WESTON 05/06/2024 ADDENDUM STATUS: UNSIGNED You may not VIEW this UNSIGNED Addendum. SOLE WESTON [facility] May 06, 2024 07:45 AM ADDENDUM: LOCAL TITLE: Addendum STANDARD TITLE: ADDENDUM DATE OF NOTE: MAY 06, 2024@07:45:25 ENTRY DATE: MAY 06, 2024@07:45:27 AUTHOR: DEJAN GUTIERREZ EXP COSIGNER: URGENCY: STATUS: COMPLETED PLASMA May 05 Apr 18 Apr 17 Apr 16 Reference 2023 2023 2023 2023 14:08 Units Ranges ---- NA 140 137 138 136 mmol/L 136 - 145 K 5.0 4.3 4.3 3.7 mmol/L 3.5 - 5.1 CL 110 H 109 H 110 H 109 H mmol/L 98 - 107 CO2 21.0 L 21.0 L 22.0 18.0 L mmol/L 22 - 29 GLUC 126 H 177 H 117 H 151 H mg/dl 74 - 100 UN 30.0 H 28.0 H 35.0 H 40.0 H mg/dL 9 - 25 CREAT 2.39 H 2.05 H 2.39 H 3.29 H mg/dL .72 - 1.25 Would verify meds he is taking and follow low K diet. CKD has worsened to CKD 4 in past 6+ months, continue renal clinic. /arleth/ Dejan Gutierrez MD Primary Care Attending Signed: 05/06/2024 07:46 Receipt Acknowledged By: 05/07/2024 08:24 /arleth/ Sole Westonstaff midwife RN === --- Original Document --- 05/05/24 Pc Telephone Care Note: Called to check on, since pt. did not show for BP check. He did come in to get blood test today, but was not aware that he needed to go to get his BP checked. Agreeable to [facility] tomorrow with RN to check BP at 1300. /arleth/ Sole Westonstaff midwife RN Signed: 05/05/2024 15:38 05/06/2024 ADDENDUM STATUS: COMPLETED Forwarding va to Renal; PLASMA May 05 Apr 18 Apr 17 Apr 16 Reference 2023 2023 2023 2023 14:08 Units Ranges ---- NA 140 137 138 136 mmol/L 136 - 145 K 5.0 4.3 4.3 3.7 mmol/L 3.5 - 5.1 CL 110 H 109 H 110 H 109 H mmol/L 98 - 107 CO2 21.0 L 21.0 L 22.0 18.0 L mmol/L 22 - 29 GLUC 126 H 177 H 117 H 151 H mg/dl 74 - 100 UN 30.0 H 28.0 H 35.0 H 40.0 H mg/dL 9 - 25 CREAT 2.39 H 2.05 H 2.39 H 3.29 H mg/dL .72 - 1.25 Would verify meds he is taking and follow low K diet. CKD has worsened to CKD 4 in past 6+ months, continue renal clinic. /arleth/ Sole Weston RN staff midwife Signed: 05/06/2024 12:56 Receipt Acknowledged By: 05/06/2024 12:59 /arleth/ JOANA GEORGE RN [facility] Diabetes/Endocrine/Featherer 05/06/2024 ADDENDUM STATUS: COMPLETED forwarding to renal provider for review, does he need sooner appt than [facility] for July 2024? /chema GEORGE RN [facility] Diabetes/Endocrine/Featherer Signed: 05/06/2024 13:00 Receipt Acknowledged By: 05/06/2024 15:13 /arleth/ JOSR GARDNER staff physician 05/06/2024 ADDENDUM STATUS: COMPLETED It appears he unfortunately suffered an WILLIS due to diarrheal illness and likely did not recover to previous baseline kidney function. Please see if he'd like to either come in for a face to face visit 05/09 or be scheduled for a phone visit. Please keep the July visit as scheduled even if he does a visit end of this week. /arleth/ JOSR GARDNER staff physician Signed: 05/06/2024 16:56 Receipt Acknowledged By: * AWAITING SIGNATURE * JOANA GEORGE CHANDRA R [facility] May 05, 2024 03:36 PM PRIMARY CARE TELEP [place] ENCOUNTER NOTE: LOCAL TITLE: Pc Telephone Care Note STANDARD TITLE: PRIMARY CARE TELEPHONE ENCOUNTER NOTE DATE OF NOTE: MAY 05, 2024@15:36 ENTRY DATE: MAY 05, 2024@15:37:06 AUTHOR: SOLE WESTON EXP COSIGNER: URGENCY: STATUS: COMPLETED Pc Telephone Care Note Has ADDENDA Called to check on, since pt. did not show for BP check. He did come in to get blood test today, but was not aware that he needed to go to get his BP checked. Agreeable to [facility] tomorrow with RN to check BP at 1300. /arleth/ Sole Weston,staff midwife RN Signed: 05/05/2024 15:38 05/06/2024 ADDENDUM STATUS: COMPLETED PLASMA May 05 Sep 20 Sep Apr 16 Reference 2023 2023 2023 2023 14:08 Units Ranges ---- NA 140 137 138 136 mmol/L 136 - 145 K 5.0 4.3 4.3 3.7 mmol/L 3.5 - 5.1 CL 110 H 109 H 110 H 109 H mmol/L 98 - 107 CO2 21.0 L 21.0 L 22.0 18.0 L mmol/L 22 - 29 GLUC 126 H 177 H 117 H 151 H mg/dl 74 - 100 UN 30.0 H 28.0 H 35.0 H 40.0 H mg/dL 9 - 25 CREAT 2.39 H 2.05 H 2.39 H 3.29 H mg/dL .72 - 1.25 Would verify meds he is taking and follow low K diet. CKD has worsened to CKD 4 in past 6+ months, continue renal clinic. /arleth/ Dejan Gutierrez MD Primary Care Attending Signed: 05/06/2024 07:46 Receipt Acknowledged By: 05/07/2024 08:24 /arleth/ Sole Weston,staff midwife RN 05/06/2024 ADDENDUM STATUS: COMPLETED Forwarding va to Renal; PLASMA May 05 Apr 18 Sep Apr 16 Reference 2023 2023 2023 2023 14:08 Units Ranges ---- NA 140 137 138 136 mmol/L 136 - 145 K 5.0 4.3 4.3 3.7 mmol/L 3.5 - 5.1 CL 110 H 109 H 110 H 109 H mmol/L 98 - 107 CO2 21.0 L 21.0 L 22.0 18.0 L mmol/L 22 - 29 GLUC 126 H 177 H 117 H 151 H mg/dl 74 - 100 UN 30.0 H 28.0 H 35.0 H 40.0 H mg/dL 9 - 25 CREAT 2.39 H 2.05 H 2.39 H 3.29 H mg/dL .72 - 1.25 Would verify meds he is taking and follow low K diet. CKD has worsened to CKD 4 in past 6+ months, continue renal clinic. /arleth/ Sole Weston RN staff midwife Signed: 05/06/2024 12:56 Receipt Acknowledged By: 05/06/2024 12:59 /arleth/ JOANA GEORGE RN [facility] Diabetes/Endocrine/Featherer 05/06/2024 ADDENDUM STATUS: COMPLETED forwarding to renal provider for review, does he need sooner appt than [place] for July 2024? /arleth/ JOANA GEORGE RN [facility] Diabetes/Endocrine/Featherer Signed: 05/06/2024 13:00 Receipt Acknowledged By: 05/06/2024 15:13 /arleth/ JOSR GARDNER staff physician 05/06/2024 ADDENDUM STATUS: COMPLETED It appears he unfortunately suffered an WILLIS due to diarrheal illness and likely did not recover to previous baseline kidney function. Please see if he'd like to either come in for a face to face visit 05/09 or be scheduled for a phone visit. Please keep the July visit as scheduled even if he does a visit end of this week. /es/ JOSR GARDNER staff physician Signed: 05/06/2024 16:56 Receipt Acknowledged By: 05/07/2024 09:36 /arleth/ JOANA GEORGE RN [facility] Diabetes/Endocrine/Featherer 05/07/2024 ADDENDUM STATUS: COMPLETED schedule [facility] ATT3 appt for 05/09/24 @ 1030am to discuss labs with Dr Gardner. /arleth/ JOANA GEORGE RN [facility] Diabetes/Endocrine/Featherer Signed: 05/07/2024 09:37 Receipt Acknowledged By: * AWAITING SIGNATURE * KORTNEY BURGOS TAMMY [facility]
--- OUTSIDE RECORDS SUMMARY | 2024-05-09 06:30 | XMS_ITS | Encounter Summary ---
Author Name [facility] [place] [facility] [place] [facility] [place] Address [address] [place] [address] Care Team Providers Care Qa Analyst Name Role Phone ESTELAMAYLIN Primary Care [...] RISSA SHIRLEY Mar 04, 2012 RISSA RODRIGUEZ [id number] NORMA SHELBY PATIENT [facility] [facility] (WNR) MEDICARE ADVANTAGE [facility] (WNR) Jul 30, 2017 [id number] HERONNORMA WELLINGTON PATIENT [facility] [facility] (WNR) MEDICARE ADVANTAGE [facility](W NR) Jul 30, 2017 [id number] HERONNORMAJoel PARIS PATIENT [employer] [facility] (WNR) FORMERLY [facility] MEDIC ARE BRAULIO Connell Jul 30, 2012 [id number] NORMA SHELBY PATIENT MEDICARE (WNR) MEDICARE (M) PART A Jul 30, 2017 PART A [phone] NORMA SHELBY PATIENT MEDICARE (WNR) MEDICARE (M) PART B Jul 30, 2017 PART B [id number] [id number] NORMA SHELBY PATIENT MEDICARE PART D (WNR) PRESCRIPT ION PART D Jul 30, 2017 PART D [id number] NORMA SHELBY PATIENT MEDICARE PART D ([place]) MEDICARE (M) PART D Jul 30, 2017 PART D [id number] NORMA SHELBY PATIENT MEDICARE PART D (WNR) MEDICARE (M) PART D Jul 30, 2017 PART D [id number] [phone] NORMA SHELBY PATIENT MEDICARE PART D (WNR) MEDICARE (M) PART D Jul 30, 2012 PART D [id number] NORMA SHELBY PATIENT Selected Encounter This section includes the information on record at [place] for the Encounter. Date/Time Encounter Type Encounter Description Reason Provider Source May 09, 2024 10:30 AM OFFICE O/P EST MOD 30 MIN RENAL/NEPHROL(EXCE PT DIALYSIS) ICD-10-CM E11.22 Type 2 diabetes mellitus w diabetic chronic kidney disease JOSR GORDILLO Abi Encounter Template Text not used by [place] Assessments - Encounter Diagnoses This section includes the primary and secondary diagnoses documented for the Encounter. Date/Time Primary/Secondary Diagnosis Diagnosis Name Provider Source May 09, 2024 11:34 AM PRIMARY Type 2 diabetes mellitus w diabetic chronic kidney disease JOSR GORDILLO [facility] May 09, 2024 11:34 AM SECONDARY Chronic kidney disease, stage 3 unspecified JOSR GORDILLO [facility] May 09, 2024 11:34 AM SECONDARY Diarrhea, unspecified JOSR GORDILLO [facility] May 09, 2024 11:34 AM SECONDARY Hypertensive chronic kidney disease w stg 1-4/unsp chr kdny JOSR GORDILLO [facility] May 09, 2024 11:34 AM SECONDARY Other acute kidney failure JOSR GORDILLO [facility] Plan of Treatment: Future Appointments (+ 6 months) and Future Tests (+/- 45 days) The Plan of Treatment section includes future care activities for the patient from all [place] [facility]. This section includes future appointments and future orders which are active, pending or scheduled. Future Appointments This section includes appointments that were scheduled to occur 6 months from the date of the Encounter, up to a maximum of 20 appointments. The data comes from all [facility]. Appointment Date/Time Appointment Type Appointme nt Facility Name May 20, 2024 11:00 AM AMBULATORY - MEDICINE [facility] Jun 25, 2024 09:45 AM AMBULATORY - MEDICINE [facility] Jul 08, 2024 01:40 PM AMBULATORY - SURGERY [facility] Sep 16, 2024 01:20 PM AMBULATORY - MEDICINE [facility] Oct 20, 2024 11:20 AM AMBULATORY - MEDICINE [facility] Oct 29, 2024 10:30 AM AMBULATORY - SURGERY [facility] Nov 04, 2024 11:00 AM AMBULATORY - MEDICINE [facility] Nov 04, 2024 01:40 PM AMBULATORY - SURGERY [facility] Active, Pending, and Scheduled Orders This section includes a listing of several types of active, pending, and scheduled orders, including clinic medications orders, diagnostic test orders, procedure orders and consult orders; where the start date of the order is 45 days before the date of the Encounter or 45 days after the date of theEncounter. The data comes from all [facility]. Test Date/Time Test Type Test Details Facility Name Apr 15, 2024 02:03 PM Laboratory - Chemi stry Order CBC/PLT [id number] BLOOD STAT WC ONCE [facility] Lab Results: +/- 30 days of the encounter This section includes the Chemistry and Hematology Lab Results on record with [place] for the patient. Radiology Reports and Pathology Reports are provided separately, in subsequent sections. Lab Results This section contains the Chemistry/Hematology Results that were resulted 30 days before or 30 daysafter the date of the Encounter. Date/Time Source Result Type Result - Unit Interpretation Reference Range Specimen Type Comment May 05, 2024 02:08 PM [facility] N PANEL 1 PLASMA Specimen Type: PLASMA [...] Apr 21, 2024 11:25 AM Reporting Lab: [address] [address] Performing Lab: [address] [address] CREATININE 2.39 mg/dL H 0.72-1.25 UREA NITROGEN 30 mg/dL H 9-25 GLUCOSE 126 mg/dL H 74-100 SODIUM 140 mmol/L 136-145 POTASSIUM 5.0 mmol/L 3.5-5.1 CHLORIDE 110 mmol/L H 98-107 CO2 21 mmol/L L 22-29 CALCIUM 9.9 mg/dL 8.4-10.2 ANION GAP 9 meq/L 3-19 eGFR (CKD-EPI) 27 Apr 18, 2024 11:13 AM [facility] GLUCOSE-HAND MONITOR CAPILLARY Specime n Type: CAPILLARY Comment: Test performed by: [id number] Meter #: [id number] Ordering Provider: CHERYL HURT Report Released Date/Time: Apr 18, 2024 11:44 AM Reporting Lab: [address] [address] Performing Lab: [address] [address] GLUCOSE-HAND MONITOR 110 mg/dL H 71-99 Apr 18, 2024 07:58 AM [facility] PANEL 1 PLASMA Specimen Type: PLASM [...] Apr 17, 2024 03:26 PM Reporting Lab: [place] [phone] Performing Lab: [place] [phone] CREATININE 2.05 mg/dL H 0.72-1.25 UREA NITROGEN 28 mg/dL H 9-25 GLUCOSE 177 mg/dL H 74-100 SODIUM 137 mmol/L 136-145 POTASSIUM 4.3 mmol/L 3.5-5.1 CHLORIDE 109 mmol/L H 98-107 CO2 21 mmol/L L 22-29 CALCIUM 8.6 mg/dL 8.4-10.2 ANION GAP 7 meq/L 3-19 eGFR (CKD-EPI) 32 Apr 18, 2024 07:00 AM [facility] GLUCOSE-HAND MONITOR CAPILLARY Specime n Type: CAPILLARY Comment: CARLOS RN notified Test performed by: [id number] Meter #: [id number] Ordering Provider: CHERYL HURT Report Released Date/Time: Apr 18, 2024 07:22 AM Reporting Lab: [address] [address] Performing Lab: [place] [phone] GLUCOSE-HAND MONITOR 127 mg/dL H 71-99 Apr 17, 2024 08:26 PM [facility] GLUCOSE-HAND MONITOR CAPILLARY Specime n Type: CAPILLARY Comment: CARLOS RN notified Test performed by: [id number] Meter #: [id number] Ordering Provider: CHERYL HURT Report Released Date/Time: Apr 17, 2024 09:24 PM Reporting Lab: [address] [address] Performing Lab: [address] [address] GLUCOSE-HAND MONITOR 164 mg/dL H Apr 17, 2024 04:45 PM [facility] GLUCOSE-HAND MONITOR CAPILLARY Specime n Type: CAPILLARY Comment: CARLOS RN notified Test performed by: [id number] Meter #: [id number] Ordering Provider: CHERYL HURT Report Released Date/Time: Apr 17, 2024 05:19 PM Reporting Lab: [address] [address] Performing Lab: [address] [address] GLUCOSE-HAND MONITOR 161 mg/dL H Apr 17, 2024 12:11 PM [facility] GLUCOSE-HAND MONITOR CAPILLARY Specime n Type: CAPILLARY Comment: Test performed by: [id number] Meter #: [id number] Ordering Provider: CHERYL HURT Report Released Date/Time: Apr 17, 2024 12:46 PM Reporting Lab: [address] [address] Performing Lab: [address] [address] GLUCOSE-HAND MONITOR 116 mg/dL H Apr 17, 2024 07:33 AM [facility] PANEL 1 PLASMA Specimen Type: PLASM [...] Apr 16, 2024 03:40 PM Reporting Lab: [address] [address] Performing Lab: [address] [address] CREATININE 2.39 mg/dL H 0.72-1.25 UREA NITROGEN 35 mg/dL H 9-25 GLUCOSE 117 mg/dL H 74-100 SODIUM 138 mmol/L 136-145 POTASSIUM 4.3 mmol/L 3.5-5.1 CHLORIDE 110 mmol/L H 98-107 CO2 22 mmol/L 22-29 CALCIUM 8.7 mg/dL 8.4-10.2 ANION GAP 6 meq/L 3-19 eGFR (CKD-EPI) Apr 17, 2024 07:33 AM [facility] CBC/PLT BLOOD Specimen Type: BLOOD No comment entered. Ordering Provider: EDGARDO GARCIA Report Released Date/Time: Apr 16, 2024 03:40 PM Reporting Lab: [address] [address] Performing Lab: [address] [address] WBC 8.8 10*3/uL 5.0-10.0 RBC 4.05 10*6/uL L 4.6-6.2 HGB 11.4 g/dL L 14.0-18.0 HCT 36.1 L 42.0-52.0 MCV 89.1 fL 80.0-94.0 MCH 28.1 pg 27.0-31.0 MCHC 31.6 g/dL L 32.0-36.0 PLT 165 10*3/uL 150-450 MPV 10.4 fL 9.0-13.1 RDW 13.4 11.0-16.0 NRBC 0.0 0.0-0.0 Apr 17, 2024 06:55 AM [facility] GLUCOSE-HAND MONITOR CAPILLARY Specime n Type: CAPILLARY Comment: CARLOS RN notified Test performed by: [id number] Meter #: [id number] Ordering Provider: CHERYL HURT Report Released Date/Time: Apr 17, 2024 07:16 AM Reporting Lab: [address] [address] Performing Lab: [address] [address] GLUCOSE-HAND MONITOR 125 mg/dL H Apr 16, 2024 08:45 PM [facility] GLUCOSE-HAND MONITOR CAPILLARY Specime n Type: CAPILLARY Comment: CARLOS RN notified Test performed by: [id number] Meter #: [id number] Ordering Provider: CHERYL HURT Report Released Date/Time: Apr 16, 2024 10:14 PM Reporting Lab: [address] [address] Performing Lab: [address] [address] GLUCOSE-HAND MONITOR 138 mg/dL H Apr 16, 2024 04:48 PM [facility] GLUCOSE-HAND MONITOR CAPILLARY Specime n Type: CAPILLARY Comment: CARLOS RN notified Test performed by: [id number] Meter #: [id number] Ordering Provider: CHERYL HURT Report Released Date/Time: Apr 16, 2024 05:42 PM Reporting Lab: [place] [phone] Performing Lab: [address] [address] GLUCOSE-HAND MONITOR 110 mg/dL H Apr 16, 2024 12:03 PM [facility] GLUCOSE-HAND MONITOR CAPILLARY Specime n Type: CAPILLARY Comment: CARLOS ELLIS notified Test performed by: [id number] Meter #: [id number] Ordering Provider: CHERYL HURT Report Released Date/Time: Apr 16, 2024 01:01 PM Reporting Lab: [address] [address] Performing Lab: [address] GLUCOSE-HAND MONITOR 126 mg/dL H Apr 16, 2024 08:10 AM [facility] CBC/PLT BLOOD Specimen Type: BLOOD No comment entered. Ordering Provider: EDGARDO GARCIA Report Released Date/Time: Apr 15, 2024 11:24 PM Reporting Lab: [address] [address] Performing Lab: [address] [address] WBC 9.5 10*3/uL 5.0-10.0 RBC 4.19 10*6/uL L 4.6-6.2 HGB 11.6 g/dL L 14.0-18.0 HCT 37.0 L 42.0-52.0 MCV 88.3 fL 80.0-94.0 MCH 27.7 pg 27.0-31.0 MCHC 31.4 g/dL L 32.0-36.0 PLT 163 10*3/uL 150-450 MPV 10.4 fL 9.0-13.1 RDW 13.5 11.0-16.0 NRBC 0.0 0.0-0.0 Apr 16, 2024 08:10 AM [facility] PANEL 1 PLASMA Specimen Type: PLASM [...] Apr 15, 2024 11:24 PM Reporting Lab: [address] [address] Performing Lab: [address] [address] CREATININE 3.29 mg/dL H 0.72-1.25 UREA NITROGEN 40 mg/dL H 9-25 GLUCOSE 151 mg/dL H 74-100 SODIUM 136 mmol/L 136-145 POTASSIUM 3.7 mmol/L 3.5-5.1 CHLORIDE 109 mmol/L H 98-107 CO2 18 mmol/L L 22-29 CALCIUM 8.5 mg/dL 8.4-10.2 ANION GAP 9 meq/L 3-19 eGFR (CKD-EPI) 18 Apr 16, 2024 06:43 AM [facility] GLUCOSE-HAND MONITOR CAPILLARY Specime n Type: CAPILLARY Comment: Test performed by: [id number] Meter #: [id number] Ordering Provider: CHERYL HURT Report Released Date/Time: Apr 16, 2024 07:14 AM Reporting Lab: [address] [address] Performing Lab: [address] [address] GLUCOSE-HAND MONITOR 111 mg/dL H -Apr 16, 2024 06:00 AM [facility] MRSA SURVL NARES DNA NARES Specime [...] Apr 15, 2024 11:24 PM Reporting Lab: [address] [address] Performing Lab: [address] [address] MRSA SURVL NARES DNA Negative Negative Apr 15, 2024 11:44 PM [facility] GLUCOSE-HAND MONITOR CAPILLARY Specime n Type: CAPILLARY Comment: Test performed by: [id number] Meter #: [id number] Ordering Provider: CHERYL HURT Report Released Date/Time: Apr 16, 2024 12:31 AM Reporting Lab: [address] [address] Performing Lab: [address] [address] GLUCOSE-HAND MONITOR 149 mg/dL H Apr 15, 2024 07:21 PM [facility] OVA AND PARASITE EXAM, GIARDIA (LC) FECES Specimen Type: FECES Comment: No ova, cysts, or parasites seen. . One negative specimen does not rule out the possibility of a parasitic infection. Ordering Provider: CARRINGTON GRISSOM Report Released Date/Time: Apr 15, 2024 06:03 PM Reporting Lab: [address] [address] Performing Lab: [address] [address] .OVA & PARASITE EXAM (LC) Comment .GIARDIA EIA (LC) Negative Negative Apr 15, 2024 07:21 PM [facility] C DIFF TOXIN BY PCR/REFLEX TO EIA FECES Specimen Type: FECES Comment: This Ecato Xpert C DIFF PCR Assay targets the [...] Apr 15, 2024 06:03 PM Reporting Lab: [place] [phone] Performing Lab: [place] [phone] C DIFF TOX B GENE PCR Negative Negative Apr 15, 2024 07:21 PM [facility] WBC FECES (LACTOFERRIN) FECES Spec imen Type: FECES No comment entered. Ordering Provider: CARRINGTON GIRSSOM Report Released Date/Time: Apr 15, 2024 06:03 PM Reporting Lab: [address] [address] Performing Lab: [address] [address] WBC FECES (LACTOFERRIN) POSITIVE Negativ e Apr 15, 2024 05:53 PM [facility] URINE LYTES URINE Specimen Type : URINE No comment entered. Ordering Provider: CARRINGTON GRISSOM Report Released Date/Time: Apr 15, 2024 04:12 PM Reporting Lab: [place] [phone] Performing Lab: [address] [address] SODIUM 42 mmol/L POTASSIUM 20.7 mmol/L CHLORIDE 28 mmol/L Apr 15, 2024 05:53 PM [facility] URINALYSIS URINE Specimen Type : URINE No comment entered. Ordering Provider: CARRINGTON GRISSOM Report Released Date/Time: Apr 15, 2024 02:03 PM Reporting Lab: [address] [address] Performing Lab: [address] [address] URINE COLOR Yellow Colorless-Yellow APPEARANCE CLOUDY H [...] H None Apr 15, 2024 05:26 PM [facility] MRSA SURVL NARES DNA NARES Specime [...] Apr 15, 2024 04:28 PM Reporting Lab: [address] [address] Performing Lab: [address] [address] MRSA SURVL NARES DNA Negative Negative Apr 15, 2024 02:41 PM [facility] LACTIC ACID PLASMA Specimen Type : PLASMA No comment entered. Ordering Provider: CARRINGTON GRISSOM Report Released Date/Time: Apr 15, 2024 02:03 PM Reporting Lab: [address] [address] Performing Lab: [address] [address] LACTIC ACID 1.4 mmol/L 0.5-2.2 Apr 15, 2024 02:41 PM [facility] LIPASE PLASMA Specimen Type: PLASM A [...] Apr 15, 2024 02:03 PM Reporting Lab: [address] [address] Performing Lab: [address] [address] LIPASE 11 U/L Apr 15, 2024 02:41 PM [facility] PANEL 2 PLASMA Specimen Type: PLASM [...] Apr 15, 2024 02:03 PM Reporting Lab: [address] [address] Performing Lab: [address] [address] TOTAL PROTEIN 7.2 g/dL 6.4-8.3 ALBUMIN 3.8 g/dL 3.5-5.2 TOTAL BILIRUBIN 0.6 mg/dL 0.2-1.2 AST 21 U/L 5-34 ALT 18 U/L 0-55 ALK PHOS 60 U/L 40-150 BILIRUBIN-DIRECT 0.2 mg/dL 0.0-0.5 Apr 15, 2024 02:41 PM [facility] PANEL 1 PLASMA Specimen Type: PLASM [...] Apr 15, 2024 02:03 PM Reporting Lab: [address] [address] Performing Lab: [address] [address] CREATININE 4.52 mg/dL H 0.72-1.25 UREA NITROGEN 41 mg/dL H 9-25 GLUCOSE 110 mg/dL H 74-100 SODIUM 135 mmol/L L 136-145 POTASSIUM 3.9 mmol/L 3.5-5.1 CHLORIDE 104 mmol/L 98-107 CO2 20 mmol/L L 22-29 CALCIUM 8.8 mg/dL 8.4-10.2 ANION GAP 11 meq/L 3-19 eGFR (CKD-EPI) 12 Apr 15, 2024 02:41 PM [facility] CBC/PLT BLOOD Specimen Type: BLOOD Comment: ~STAT Ordering Provider: CARRINGTON GRISSOM Report Released Date/Time: Apr 15, 2024 02:03 PM Reporting Lab: [address] [address] Performing Lab: [address] [address] WBC 11.3 10*3/uL H 5.0-10.0 RBC 4.04 10*6/uL L 4.6-6.2 HGB 11.5 g/dL L 14.0-18.0 HCT 36.3 L 42.0-52.0 MCV 89.9 fL 80.0-94.0 MCH 28.5 pg 27.0-31.0 MCHC 31.7 g/dL L 32.0-36.0 PLT 166 10*3/uL 150-450 MPV 10.6 fL 9.0-13.1 RDW 13.6 11.0-16.0 NRBC 0.0 0.0-0.0 Apr 15, 2024 02:41 PM [facility] COVID-19 AND FLU/RSV DIAGNOSTIC PANEL NASOPH [...] Food and Drug Administration's Emergency Use Authorization. Ecato Genexpert (596) Ordering Provider: CARRINGTON GRISSOM Report Released Date/Time: Apr 15, 2024 02:03 PM Reporting Lab: [address] [address] Performing Lab: [address] [address] COVID-19 PCR (FLUVID) Negative Negative FLU A PCR (FLUVID) Negative Negative FLU B PCR (FLUVID) Negative Negative RSV PCR (FLUVID) Negative Negative Apr 15, 2024 02:41 PM [facility] PROCALCITONIN-[facility] PLASMA Specimen Type: PLASM A [...] Apr 15, 2024 02:03 PM Reporting Lab: [address] [address] Performing Lab: [address] [address] [facility] 0.[facility] ng/mL H 0.00-0.50 Apr 15, 2024 02:41 PM [facility] AUTOMATED DIFF BLOOD Specimen Type : BLOOD Comment: ~STAT Ordering Provider: CARRINGTON GRISSOM Report Released Date/Time: Apr 15, 2024 02:03 PM Reporting Lab: [facility] [address] [facility] [address] Performing Lab: [address] [address] A-LYMPH % 21.9 L 24.0-44.0 A-MONO % 14.9 H 0.1-6.0 A-GRAN % 58.9 42.0-75.0 A-LYMPH # 2.47 10*3/uL 1.20-3.40 A-MONO # 1.68 10*3/uL H 0.00-0.60 A-GRAN # 6.63 10*3/uL H 1.40-6.50 A-BASO % 0.3 0.0-3.0 A-BASO # 0.03 10*3/uL 0.00-0.20 A-EOS % 3.7 0.0-10.0 A-EOS # 0.42 10*3/uL 0.00-0.70 A-IG % 0.3 0.0-0.5 A-IG # 0.03 10*3/uL 0.00-0.06 Social History: Smoking Status (Most current) and Tobacco Use (All prior to encounter date) This section includes the most current, and the historical, smoking and tobacco- related health factors from the [facility] where the Encounter took place. Current Smoking Status This section includes the most current smoking, or tobacco-related health factor, from the [place] facility where the Encounter took place. Date/Time Current Smoking Status Comment Facil ity December 08, 2008 06:50 PM V9 QUIT TOBACCO >7 YEARS AGO [facility] Tobacco Use History This section includes a history of the smoking, or tobacco-related health factors, that were collected on or before the date of the Encounter. The data comes from the [place] facility where the Encounter took place. Date/Time Smoking Status/Tobac co Use Comment Facility Sep 25, 2007 07:04 PM TOBACCO OFFERRED PT MEDS (PROVIDER) [facility] Sep 25, 2007 07:04 PM V9 CURRENT TOBACCO USER [facility] Sep 25, 2007 07:04 PM V9 TOBACCO OFFERED [facility] Aug 16, 2006 05:31 PM TOBACCO OFFERRED PT MEDS (PROVIDER) [facility] Aug 16, 2006 05:31 PM V9 CURRENT TOBACCO USER [facility] Aug 16, 2006 05:31 PM V9 TOBACCO OFFERED [facility] Feb 08, 2006 02:21 PM HF V9 SECOND TOBACCO SENIOR ANALYST PROGRAMMER [address] [place] [address] Sep 19, 2005 02:18 PM HF V9 CURRENT SMOKER SMOKES ABOUT 1/2 PPD [facility] Feb 07, 2005 02:38 PM HF V9 SECOND TOBACCO SENIOR ANALYST PROGRAMMER [address] [place] [address] Aug 30, 2004 11:28 AM HF V9 THIRD TOBACCO SENIOR ANALYST PROGRAMMER SMOKES UP TO 1 PACK EVERY COUPLE OF DAYS [facility] Mar 15, 2004 03:48 PM HF V9 CURRENT SMOKER [address] [place] [address] Sep 01, 2003 11:25 AM HF V9 SECOND TOBACCO SENIOR ANALYST PROGRAMMER 10 CIGARETTES A DAY [facility] Oct 21, 2002 12:42 PM HF V9 CURRENT SMOKER 1 pack a day [facility] Radiology Reports: +/- 30 days of [...] the Encounter. The data comes from all [facility] facilities. Date/Time Radiology Report Provider Source Apr 15, 2024 05:07 PM CHEST TWO(2) VIEW PA&LAT: CHELSEY SHELBY [id number] -1945 M Exm Date: APR 15, 2024@17:07 Req Phys: CARRINGTON GRISSOM Loc: ED/7A-4PM (Req'g Loc) Img Loc: CDD RADIOLOGY Service: [place] [address] (Case [id number] COMPLETE) CHEST TWO(2) VIEW PA&LAT (RAD Detailed) CPT:79186 Reason for Study: possible admission, diarrhea for 5 days , willis. Clinical History: Report Status: Verified Date Reported: APR 15, 2024 Date Verified: APR 15, 2024 Volumetric Weigher E-Sig: Report: PA and lateral chest CLINICAL [...] Interpreting Staff: JAMARI GALEANA, RADIOLOGIST Verified by professional benefits sales consultant for JAMARI GALEANA /Indu GALEANA,[facility] Apr 15, 2024 05:[address] ABD/PELVIS W/O CONT (RENAL STONE PROTOCOL): CHELSEY SHELBY [id number] -1945 M Exm Date: APR 15, 2024@17:00 Req Phys: CARRINGTON GRISSOM Loc: ED/7A-4PM (Req'g Loc) Img Loc: CT SCAN Service: [place] [address] (Case [id number] COMPLETE) CT ABD/PELVIS W/O CONTRAST (CT Detailed) CPT:60065 Reason for Study: SEE CLINICAL HISTORY Clinical History: 22. Suspected diverticulitis HISTORY/REASON FOR EXAM: patient with WILLIS and diarrhea for 5 days white count about 11. No specifica abdominal pain. Report Status: Verified Date Reported: APR 15, 2024 Date Verified: APR 15, 2024 Volumetric Weigher E-Sig: Report: HISTORY SEE CLINICAL [id number]. Suspected diverticulitisHISTORY/REASON FOR EXAM:patient with WILLIS and [...] Staff: ANDREW GARCIA, Staff Physician Verified by professional benefits sales consultant for ANDREW GARCIA /ANDREW [facility] Encounter Notes: All associated encounter notes This section contains the clinical notes associated to the Encounter. Date/Time Encounter Note(s) Provider Source May 09, 2024 01:58 PM ADDENDUM: LOCAL TITLE: Addendum STANDARD TITLE: ADDENDUM DATE OF NOTE: MAY 09, 2024@13:58:08 ENTRY DATE: MAY 09, 2024@13:58:10 AUTHOR: JOANA GEORGE EXP COSIGNER: URGENCY: STATUS: COMPLETED cancel 08/05/24 f/u appt and schedule 4 mos f/u appt in Aug 2024. /arleth/ JOANA GEORGE RN [facility] Diabetes/Endocrine/Laborer Demolition Signed: 05/09/2024 13:58 Receipt Acknowledged By: 05/09/2024 15:08 /arleth/ KORTNEY GAINESS rowena --- Original Document --- 05/09/24 RENAL CLINIC PHYSICIAN NOTE: ( ) Nursing Intake Note Reviewed Pain: 4 (05/09/2024 10:22) Reason for Visit: CKD/WILLIS Physician History and Exam: This is a pleasant 78 year old MALE with T2DM, ROWAN on CPAP, HTN, HLD and Afib on apixiban who presents to nephrology clinic for follow up of CKD. Last seen in January. Had hospital stay just last month for campylobacter diarrhea, had WILLIS with Cr peak to 4.5, has had some renal recovery but not to previous baseline. Today he says his stools are still loose. They'd kind of normalized after discharge but are back to very soft. He thinks he's lost another 6 pounds. He has no edema. BP at home well controlled but says its often 160 in the morning when he wakes up before medications but it then goes down throughout the day. He takes chlorthalidone, lisinopril, and jenniffer all in the morning. He says his pantoprazole and fluoxetine were held at discharge and he hasn't been taking them. He'd hoped to stay off them, wanted to try and see if he could get by without them. But he felt his mood was better with fluoxteine and he's had heart burn so he'd like both of those today. TEMP: Measurement DT TEMP F(C) 05/09/2024 10:22 97.8(36.6) PULSE: Measurement DT PULSE 05/09/2024 10:22 72 BLOOD PRESSURE: Measurement DT BP 05/09/2024 10:22 134/65 RESPIRATIONS: Measurement DT RESP 05/09/2024 10:22 18 WEIGHT: Measurement DT WEIGHT LB(KG)[BMI] 05/09/2024 10:22 311.0(141.07)[42*] RENAL VASCULAR DUPLEX - NONE FOUND - 1Y Active Outpatient Medications (including Supplies): Active Outpatient Medications Status 1) ACCU-CHEK GUIDE (GLUCOSE) TEST STRIP USE 1 STRIP TO ACTIVE TEST BLOOD SUGAR DIRECTED LIMIT 50 STRIPS EVERY 90 DAYS 2) APIXABAN 5MG TAB TAKE ONE-HALF TABLET BY MOUTH TWICE ACTIVE A DAY TO THIN BLOOD -CALL ANTICOAGULATION CLINIC [phone] WITH QUESTIONS OR CONCERNS 3) ATORVASTATIN CALCIUM 40MG TAB TAKE ONE-HALF TABLET BY ACTIVE MOUTH DAILY FOR CHOLESTEROL 4) CHLORTHALIDONE 25MG TAB TAKE ONE TABLET BY MOUTH ACTIVE DAILY FOR BLOOD PRESSURE 5) FLUOXETINE HCL 20MG CAP TAKE ONE CAPSULE BY MOUTH ACTIVE (S) DAILY FOR MOOD 6) GABAPENTIN 300MG CAP TAKE TWO CAPSULES BY MOUTH TWICE ACTIVE A DAY FOR NERVE PAIN 7) [id number] PENTOXIFYLLINE SA 400MG/PBO TAKE ONE ACTIVE TABLET BY MOUTH TWICE A DAY WITH FOOD. SWALLOW WHOLE-DO NOT CHEW, CRUSH OR CUT 8) LANCET,SOFTCLIX USE LANCET AFFECTED AREA DIRECTED ACTIVE 9) LISINOPRIL 40MG TAB TAKE ONE TABLET BY MOUTH DAILY ACTIVE FOR BLOOD PRESSURE/HEART 10) METOPROLOL TARTRATE 50MG TAB TAKE ONE-HALF TABLET BY ACTIVE MOUTH TWICE A DAY FOR RAPID HEARTBEAT 11) PANTOPRAZOLE NA 40MG EC TAB TAKE ONE TABLET BY MOUTH ACTIVE TWICE A DAY 30 MINUTES BEFORE A MEAL FOR STOMACH, 30 MINUTES BEFORE A MEAL. TAKE ON AN EMPTY STOMACH. 12) SPIRONOLACTONE 25MG TAB TAKE ONE TABLET BY MOUTH ACTIVE DAILY FOR BLOOD PRESSURE/HEART Labs/Ancillary: Sodium: 140 mmol/L (05/05/2024 14:08) Potassium: 5.0 mmol/L (05/05/2024 14:08) Chloride: 110 mmol/L H (05/05/2024 14:08) CO2: 21 mmol/L L (05/05/2024 14:08) Creatinine: Collection DT Specimen Test Name Result Units Ref Range 05/05/2024 14:08 PLASMA!! CREATININE 2.39 H mg/dL 0.72 - 1.25 !! Indicates COMMENTS AVAILABLE...Refer to Interim Lab Report. BUN: 30 mg/dL H (05/05/2024 14:08) URR: Glucose: 126 mg/dL H (05/05/2024 14:08) Calcium: 9.9 mg/dL (05/05/2024 14:08) Phosphorus: 2.6 mg/dL (02/05/2024 12:20) Albumin: 3.8 g/dL (04/15/2024 14:41) Alk Phos: 60 U/L (04/15/2024 14:41) WBC: 8.8 K/cmm (04/17/2024 05:00) EXAM: GEN: NAD, pleasant and cooperative CV: rrr RESP: normal effort SKIN: warm and dry EXT: no LE edema ASSESSMENT/PLAN: #CKD Stage 3b with recent WILLIS - seems to have established a new baseline creatinine in the low 2's after the WILLIS from hospital stay last month, will monitor on going trend - Etiology likely 2/2 to longstanding T2DM and HTN nephrosclerosis - Minimal proteinuria - Electrolytes, Acid/base stable - Renal US with medical kidney disease #HTN/fluid overload - asked him to take the jenniffer with the evneing metoprolol but continue the lisinporil and chlorthalidone in the morning - also instructed him to stop jenniffer if systolic gets <110 consistnetly, worried if he has ongoing GI issues and continues to lose weight we'd end up over treating his BP - note he had swelling with amlodipine, will avoid in future #T2DM - encouraged tight control #CKD MBD/Vit D deficiency - stable parameters, keep vit D 30-80 RTC 4 months. If he has another visit scheduled in the interim, that one is ok to cancel. I have refilled fluoxetine and pantoprazole at his request, also provided refills for a few other meds that were down to zero refills. Will flag PCP regarding ongoing diarrheal illness. /arleth/ JOSR GORDILLO staff physician Signed: 05/09/2024 11:34 Receipt Acknowledged By: 05/09/2024 11:49 /arleth/ BREN HOWE WE[employer] SERVICES PROFESSIONAL for MAYLIN Willi PALMER 05/09/2024 ADDENDUM STATUS: COMPLETED Sole, can you check on this on sunday to see how his loose stools are going? thank you. /arleth/ BREN HOWE WEB SERVICES PROFESSIONAL Signed: 05/09/2024 11:51 Receipt Acknowledged By: * AWAITING SIGNATURE * SOLE WESTON 05/09/2024 ADDENDUM STATUS: COMPLETED Diagnosis/problems,lab results, medication review and changes,treatment plan and follow up discussed with /significant other/caregiver by provider. Amidon exited clinic per provider. RTC determined per provider (order/note). Provider to notify and discuss procedure/lab results if deemed necessary. /arleth/ JOANA GEORGE RN [facility] Diabetes/Endocrine/Laborer Demolition Signed: 05/09/2024 13:54 [facility] May 09, 2024 11:50 AM ADDENDUM: LOCAL TITLE: Addendum STANDARD TITLE: ADDENDUM DATE OF NOTE: MAY 09, 2024@11:50:01 ENTRY DATE: MAY 09, 2024@11:50:03 AUTHOR: BREN HOWE EXP COSIGNER: URGENCY: STATUS: COMPLETED Sole, can you check on this on sunday to see how his loose stools are going? thank you. /arleth/ BREN HOWE WEB SERVICES PROFESSIONAL Signed: 05/09/2024 11:51 Receipt Acknowledged By: 05/13/2024 14:01 /arleth/ Sole Weston RN staff veterinarian --- Original Document --- 05/09/24 RENAL CLINIC PHYSICIAN NOTE: ( ) Nursing Intake Note Reviewed Pain: 4 (05/09/2024 10:22) Reason for Visit: CKD/WILLIS Physician History and Exam: This is a pleasant 78 year old MALE with T2DM, ROWAN on CPAP, HTN, HLD and Afib on apixiban who presents to nephrology clinic for follow up of CKD. Last seen in January. Had hospital stay just last month for campylobacter diarrhea, had WILLIS with Cr peak to 4.5, has had some renal recovery but not to previous baseline. Today he says his stools are still loose. They'd kind of normalized after discharge but are back to very soft. He thinks he's lost another 6 pounds. He has no edema. BP at home well controlled but says its often 160 in the morning when he wakes up before medications but it then goes down throughout the day. He takes chlorthalidone, lisinopril, and jenniffer all in the morning. He says his pantoprazole and fluoxetine were held at discharge and he hasn't been taking them. He'd hoped to stay off them, wanted to try and see if he could get by without them. But he felt his mood was better with fluoxteine and he's had heart burn so he'd like both of those today. TEMP: Measurement DT TEMP F(C) 05/09/2024 10:22 97.8(36.6) PULSE: Measurement DT PULSE 05/09/2024 10:22 72 BLOOD PRESSURE: Measurement DT BP 05/09/2024 10:22 134/65 RESPIRATIONS: Measurement DT RESP 05/09/2024 10:22 18 WEIGHT: Measurement DT WEIGHT LB(KG)[BMI] 05/09/2024 10:22 311.0(141.07)[42*] RENAL VASCULAR DUPLEX - NONE FOUND - 1Y Active Outpatient Medications (including Supplies): Active Outpatient Medications Status 1) ACCU-CHEK GUIDE (GLUCOSE) TEST STRIP USE 1 STRIP TO ACTIVE TEST BLOOD SUGAR DIRECTED LIMIT 50 STRIPS EVERY 90 DAYS 2) APIXABAN 5MG TAB TAKE ONE-HALF TABLET BY MOUTH TWICE ACTIVE A DAY TO THIN BLOOD -CALL ANTICOAGULATION CLINIC [phone] WITH QUESTIONS OR CONCERNS 3) ATORVASTATIN CALCIUM 40MG TAB TAKE ONE-HALF TABLET BY ACTIVE MOUTH DAILY FOR CHOLESTEROL 4) CHLORTHALIDONE 25MG TAB TAKE ONE TABLET BY MOUTH ACTIVE DAILY FOR BLOOD PRESSURE 5) FLUOXETINE HCL 20MG CAP TAKE ONE CAPSULE BY MOUTH ACTIVE (S) DAILY FOR MOOD 6) GABAPENTIN 300MG CAP TAKE TWO CAPSULES BY MOUTH TWICE ACTIVE A DAY FOR NERVE PAIN 7) [id number] PENTOXIFYLLINE SA 400MG/PBO TAKE ONE ACTIVE TABLET BY MOUTH TWICE A DAY WITH FOOD. SWALLOW WHOLE-DO NOT CHEW, CRUSH OR CUT 8) LANCET,SOFTCLIX USE LANCET AFFECTED AREA DIRECTED ACTIVE 9) LISINOPRIL 40MG TAB TAKE ONE TABLET BY MOUTH DAILY ACTIVE FOR BLOOD PRESSURE/HEART 10) METOPROLOL TARTRATE 50MG TAB TAKE ONE-HALF TABLET BY ACTIVE MOUTH TWICE A DAY FOR RAPID HEARTBEAT 11) PANTOPRAZOLE NA 40MG EC TAB TAKE ONE TABLET BY MOUTH ACTIVE TWICE A DAY 30 MINUTES BEFORE A MEAL FOR STOMACH, 30 MINUTES BEFORE A MEAL. TAKE ON AN EMPTY STOMACH. 12) SPIRONOLACTONE 25MG TAB TAKE ONE TABLET BY MOUTH ACTIVE DAILY FOR BLOOD PRESSURE/HEART Labs/Ancillary: Sodium: 140 mmol/L (05/05/2024 14:08) Potassium: 5.0 mmol/L (05/05/2024 14:08) Chloride: 110 mmol/L H (05/05/2024 14:08) CO2: 21 mmol/L L (05/05/2024 14:08) Creatinine: Collection DT Specimen Test Name Result Units Ref Range 05/05/2024 14:08 PLASMA!! CREATININE 2.39 H mg/dL 0.72 - 1.25 !! Indicates COMMENTS AVAILABLE...Refer to Interim Lab Report. BUN: 30 mg/dL H (05/05/2024 14:08) URR: Glucose: 126 mg/dL H (05/05/2024 14:08) Calcium: 9.9 mg/dL (05/05/2024 14:08) Phosphorus: 2.6 mg/dL (02/05/2024 12:20) Albumin: 3.8 g/dL (04/15/2024 14:41) Alk Phos: 60 U/L (04/15/2024 14:41) WBC: 8.8 K/cmm (04/17/2024 05:00) EXAM: GEN: NAD, pleasant and cooperative CV: rrr RESP: normal effort SKIN: warm and dry EXT: no LE edema ASSESSMENT/PLAN: #CKD Stage 3b with recent WILLIS - seems to have established a new baseline creatinine in the low 2's after the WILLIS from hospital stay last month, will monitor on going trend - Etiology likely 2/2 to longstanding T2DM and HTN nephrosclerosis - Minimal proteinuria - Electrolytes, Acid/base stable - Renal US with medical kidney disease #HTN/fluid overload - asked him to take the jenniffer with the evneing metoprolol but continue the lisinporil and chlorthalidone in the morning - also instructed him to stop jenniffer if systolic gets <110 consistnetly, worried if he has ongoing GI issues and continues to lose weight we'd end up over treating his BP - note he had swelling with amlodipine, will avoid in future #T2DM - encouraged tight control #CKD MBD/Vit D deficiency - stable parameters, keep vit D 30-80 RTC 4 months. If he has another visit scheduled in the interim, that one is ok to cancel. I have refilled fluoxetine and pantoprazole at his request, also provided refills for a few other meds that were down to zero refills. Will flag PCP regarding ongoing diarrheal illness. /arleth/ JOSR GORDILLO staff physician Signed: 05/09/2024 11:34 Receipt Acknowledged By: 05/09/2024 11:49 /es/ BREN HOWE WE[employer] SERVICES PROFESSIONAL for MAYLIN Willi PALMER 05/09/2024 ADDENDUM STATUS: COMPLETED Diagnosis/problems,lab results, medication review and changes,treatment plan and follow up discussed with /significant other/caregiver by provider. exited clinic per provider. RTC determined per provider (order/note). Provider to notify and discuss procedure/lab results if deemed necessary. /arleth/ JOANA GEORGE RN [facility] Diabetes/Endocrine/Laborer Demolition Signed: 05/09/2024 13:54 05/09/2024 ADDENDUM STATUS: COMPLETED cancel 08/05/24 f/u appt and schedule 4 mos f/u appt in Aug 2024. /arleth/ JOANA GEORGE RN [facility] Diabetes/Endocrine/Laborer Demolition Signed: 05/09/2024 13:58 Receipt Acknowledged By: 05/09/2024 15:08 /es/ BREN DAVISON msa-CDD [facility] May 09, 2024 10:56 AM NEPHROLOGY PHYSICI AN NOTE: LOCAL TITLE: RENAL CLINIC PHYSICIAN NOTE STANDARD TITLE: NEPHROLOGY PHYSICIAN NOTE DATE OF NOTE: MAY 09, 2024@10:56 ENTRY DATE: MAY 09, 2024@10:56:55 AUTHOR: JOSR GORDILLO COSIGNER: URGENCY: STATUS: COMPLETED RENAL CLINIC PHYSICIAN NOTE Has ADDENDA ( ) Nursing Intake Note Reviewed Pain: 4 (05/09/2024 10:22) Reason for Visit: CKD/WILLIS Physician History and Exam: This is a pleasant 78 year old MALE with T2DM, ROWAN on CPAP, HTN, HLD and Afib on apixiban who presents to nephrology clinic for follow up of CKD. Last seen in January. Had hospital stay just last month for campylobacter diarrhea, had WILLIS with Cr peak to 4.5, has had some renal recovery but not to previous baseline. Today he says his stools are still loose. They'd kind of normalized after discharge but are back to very soft. He thinks he's lost another 6 pounds. He has no edema. BP at home well controlled but says its often 160 in the morning when he wakes up before medications but it then goes down throughout the day. He takes chlorthalidone, lisinopril, and jenniffer all in the morning. He says his pantoprazole and fluoxetine were held at discharge and he hasn't been taking them. He'd hoped to stay off them, wanted to try and see if he could get by without them. But he felt his mood was better with fluoxteine and he's had heart burn so he'd like both of those today. TEMP: Measurement DT TEMP F(C) 05/09/2024 10:22 97.8(36.6) PULSE: Measurement DT PULSE 05/09/2024 10:22 72 BLOOD PRESSURE: Measurement DT BP 05/09/2024 10:22 134/65 RESPIRATIONS: Measurement DT RESP 05/09/2024 10:22 18 WEIGHT: Measurement DT WEIGHT LB(KG)[BMI] 05/09/2024 10:22 311.0(141.07)[42*] RENAL VASCULAR DUPLEX - NONE FOUND - 1Y Active Outpatient Medications (including Supplies): Active Outpatient Medications Status 1) ACCU-CHEK GUIDE (GLUCOSE) TEST STRIP USE 1 STRIP TO ACTIVE TEST BLOOD SUGAR DIRECTED LIMIT 50 STRIPS EVERY 90 DAYS 2) APIXABAN 5MG TAB TAKE ONE-HALF TABLET BY MOUTH TWICE ACTIVE A DAY TO THIN BLOOD -CALL ANTICOAGULATION CLINIC [phone] WITH QUESTIONS OR CONCERNS 3) ATORVASTATIN CALCIUM 40MG TAB TAKE ONE-HALF TABLET BY ACTIVE MOUTH DAILY FOR CHOLESTEROL 4) CHLORTHALIDONE 25MG TAB TAKE ONE TABLET BY MOUTH ACTIVE DAILY FOR BLOOD PRESSURE 5) FLUOXETINE HCL 20MG CAP TAKE ONE CAPSULE BY MOUTH ACTIVE (S) DAILY FOR MOOD 6) GABAPENTIN 300MG CAP TAKE TWO CAPSULES BY MOUTH TWICE ACTIVE A DAY FOR NERVE PAIN 7) [id number] PENTOXIFYLLINE SA 400MG/PBO TAKE ONE ACTIVE TABLET BY MOUTH TWICE A DAY WITH FOOD. SWALLOW WHOLE-DO NOT CHEW, CRUSH OR CUT 8) LANCET,SOFTCLIX USE LANCET AFFECTED AREA DIRECTED ACTIVE 9) LISINOPRIL 40MG TAB TAKE ONE TABLET BY MOUTH DAILY ACTIVE FOR BLOOD PRESSURE/HEART 10) METOPROLOL TARTRATE 50MG TAB TAKE ONE-HALF TABLET BY ACTIVE MOUTH TWICE A DAY FOR RAPID HEARTBEAT 11) PANTOPRAZOLE NA 40MG EC TAB TAKE ONE TABLET BY MOUTH ACTIVE TWICE A DAY 30 MINUTES BEFORE A MEAL FOR STOMACH, 30 MINUTES BEFORE A MEAL. TAKE ON AN EMPTY STOMACH. 12) SPIRONOLACTONE 25MG TAB TAKE ONE TABLET BY MOUTH ACTIVE DAILY FOR BLOOD PRESSURE/HEART Labs/Ancillary: Sodium: 140 mmol/L (05/05/2024 14:08) Potassium: 5.0 mmol/L (05/05/2024 14:08) Chloride: 110 mmol/L H (05/05/2024 14:08) CO2: 21 mmol/L L (05/05/2024 14:08) Creatinine: Collection DT Specimen Test Name Result Units Ref Range 05/05/2024 14:08 PLASMA!! CREATININE 2.39 H mg/dL 0.72 - 1.25 !! Indicates COMMENTS AVAILABLE...Refer to Interim Lab Report. BUN: 30 mg/dL H (05/05/2024 14:08) URR: Glucose: 126 mg/dL H (05/05/2024 14:08) Calcium: 9.9 mg/dL (05/05/2024 14:08) Phosphorus: 2.6 mg/dL (02/05/2024 12:20) Albumin: 3.8 g/dL (04/15/2024 14:41) Alk Phos: 60 U/L (04/15/2024 14:41) WBC: 8.8 K/cmm (04/17/2024 05:00) EXAM: GEN: NAD, pleasant and cooperative CV: rrr RESP: normal effort SKIN: warm and dry EXT: no LE edema ASSESSMENT/PLAN: #CKD Stage 3b with recent WILLIS - seems to have established a new baseline creatinine in the low 2's after the WILLIS from hospital stay last month, will monitor on going trend - Etiology likely 2/2 to longstanding T2DM and HTN nephrosclerosis - Minimal proteinuria - Electrolytes, Acid/base stable - Renal US with medical kidney disease #HTN/fluid overload - asked him to take the jenniffer with the evneing metoprolol but continue the lisinporil and chlorthalidone in the morning - also instructed him to stop jenniffer if systolic gets <110 consistnetly, worried if he has ongoing GI issues and continues to lose weight we'd end up over treating his BP - note he had swelling with amlodipine, will avoid in future #T2DM - encouraged tight control #CKD MBD/Vit D deficiency - stable parameters, keep vit D 30-80 RTC 4 months. If he has another visit scheduled in the interim, that one is ok to cancel. I have refilled fluoxetine and pantoprazole at his request, also provided refills for a few other meds that were down to zero refills. Will flag PCP regarding ongoing diarrheal illness. /arleth/ JOSR GORDILLO staff physician Signed: 05/09/2024 11:34 Receipt Acknowledged By: 05/09/2024 11:49 /arleth/ BREN HOWE APRN for MAYLIN PALMER 05/09/2024 ADDENDUM STATUS: ASIYA Whipple, can you check on this on sunday to see how his loose stools are going? thank you. /arleth/ BREN HOWE APRN Signed: 05/09/2024 11:51 Receipt Acknowledged By: * AWAITING SIGNATURE * SOLE WESTON 05/09/2024 ADDENDUM STATUS: COMPLETED Diagnosis/problems,lab results, medication review and changes,treatment plan and follow up discussed with /significant other/caregiver by provider. Amidon exited clinic per provider. RTC determined per provider (order/note). Provider to notify and discuss procedure/lab results if deemed necessary. /arleth/ JOANA GEORGE RN [facility] Diabetes/Endocrine/Laborer Demolition Signed: 05/09/2024 13:54 05/09/2024 ADDENDUM STATUS: COMPLETED cancel 08/05/24 f/u appt and schedule 4 mos f/u appt in Aug 2024. /arleth/ JOANA GEORGE RN [facility] Diabetes/Endocrine/Laborer Demolition Signed: 05/09/2024 13:58 Receipt Acknowledged By: * AWAITING SIGNATURE * KORTNEY BURGOS MEGAN M [place]-CDD [facility] May 09, 2024 10:43 AM NURSING OUTPATIENT NOTE: LOCAL TITLE: [facility]PC MEDICINE CLINIC INTAKE NOTE STANDARD TITLE: NURSING OUTPATIENT NOTE DATE OF NOTE: MAY 09, 2024@10:43 ENTRY DATE: MAY 09, 2024@10:43:04 AUTHOR: LAMBERTO SCHROEDER EXP COSIGNER: URGENCY: STATUS: COMPLETED Reason for visit/chief complaint: B/P: 134/65 (05/09/2024 10:22) P: 72 (05/09/2024 10:22) R: 18 (05/09/2024 10:22) T: 97.8 F [36.6 C] (05/09/2024 10:22) HT: 72.0 in [182.9 cm] (05/09/2024 10:22) WT: 311.0 lb [141.07 kg] (05/09/2024 10:22) Are you having any pain or recurrent pain in the last several weeks/months? Yes Severity Scale (4) Location: Duration: Characteristics: Pain education material offered to patient (for pain > 3) Yes Risk factors history: Hypertension Yes BP Rechecked No Comments: Patient notified ship unloader available upon request for any examinations/procedures. The patient was given a list of his/her medications, instructed to review and discuss any changes or problems with their provider. Patient advised to carry a list of current medications and any allergies with them in the event of emergency situations. Allergies: local and remote Patient has answered NKA No Remote Allergy/ADR Data available for this patient Medication Reconciliation ACTIVE OUTPATIENT MEDICATIONS LOCAL/REMOTE ACCU-CHEK GUIDE (GLUCOSE) TEST STRIP Directions: USE 1 STRIP TO TEST BLOOD SUGAR DIRECTED LIMIT 50 STRIPS EVERY 90 DAYS Quantity: 50 for 90 days Issued: 04/16/24 Filled: 04/18/24 Expires: 04/17/25 Refills: 3 Status: ACTIVE APIXABAN 5MG TAB Directions: TAKE ONE-HALF TABLET BY MOUTH TWICE A DAY TO THIN BLOOD -CALL ANTICOAGULATION CLINIC [phone] WITH QUESTIONS OR CONCERNS Quantity: 90 for 90 days Issued: 04/10/24 Filled: 04/16/24 Expires: 04/11/25 Refills: 3 Status: ACTIVE ATORVASTATIN CALCIUM 40MG TAB Directions: TAKE ONE-HALF TABLET BY MOUTH DAILY FOR CHOLESTEROL Quantity: 45 for 90 days Issued: 07/25/23 Filled: 04/17/24 Expires: 07/25/24 Refills: 0 Status: ACTIVE CHLORTHALIDONE 25MG TAB Directions: TAKE ONE TABLET BY MOUTH DAILY FOR BLOOD PRESSURE Quantity: 90 for 90 days Issued: 04/28/24 Filled: 05/11/24 Expires: 04/29/25 Refills: 1 Status: ACTIVE GABAPENTIN 300MG CAP Directions: TAKE TWO CAPSULES BY MOUTH TWICE A DAY FOR NERVE PAIN Quantity: 120 for 30 days Issued: 04/18/24 Filled: 04/18/24 Expires: 05/18/24 Refills: 0 Status: ACTIVE [id number] PENTOXIFYLLINE SA 400MG/PBO Directions: TAKE ONE TABLET BY MOUTH TWICE A DAY WITH FOOD. SWALLOW WHOLE-DO NOT CHEW, CRUSH OR CUT Quantity: 200 for 90 days Issued: 03/27/24 Filled: 03/28/24 Expires: 06/25/24 Refills: 0 Status: ACTIVE LANCET,SOFTCLIX Directions: USE LANCET AFFECTED AREA DIRECTED Quantity: 100 for 90 days Issued: 04/16/24 Filled: 04/18/24 Expires: 04/17/25 Refills: 3 Status: ACTIVE LISINOPRIL 40MG TAB Directions: TAKE ONE TABLET BY MOUTH DAILY FOR BLOOD PRESSURE/HEART Quantity: 90 for 90 days Issued: 05/21/23 Filled: 03/03/24 Expires: 05/21/24 Refills: 0 Status: ACTIVE METOPROLOL TARTRATE 50MG [...] STOMACH. Quantity: 180 for 90 days Issued: 04/18/24 Filled: 04/18/24 Expires: 07/17/24 Refills: 0 Status: ACTIVE SPIRONOLACTONE 25MG TAB Directions: TAKE ONE TABLET BY MOUTH DAILY FOR BLOOD PRESSURE/HEART Quantity: 90 for 90 days Issued: 04/28/24 Filled: 05/07/24 Expires: 04/29/25 Refills: 3 Status: ACTIVE FLUOXETINE HCL 20MG CAP Directions: TAKE ONE CAPSULE BY MOUTH DAILY FOR MOOD Quantity: 90 for 90 days Issued: 04/21/24 Filled: 07/10/24 Expires: 04/22/25 Refills: 2 Status: ACTIVE/SUSP No remote medications found. PENDING OUTPATIENT MEDICATONS (LOCAL/REMOTE): No local medications found. No remote medications found. ACTIVE NONVA MEDICATIONS (LOCAL): No local medications found. OUTPATIENT MEDICATIONS (LOCAL)WITHIN 90 DAYS: FLUOXETINE HCL 20MG CAP Directions: TAKE ONE CAPSULE BY MOUTH DAILY FOR MOOD Quantity: 90 for 90 days Issued: 04/21/24 Filled: 07/10/24 Expires: 04/22/25 Refills: 2 Status: ACTIVE/SUSP CHLORTHALIDONE 25MG TAB Directions: TAKE ONE TABLET BY MOUTH DAILY FOR BLOOD PRESSURE Quantity: 30 for 30 days Issued: 01/14/24 Filled: 01/14/24 Expires: 02/13/24 Refills: 0 Status: METFORMIN HCL 500MG TAB Directions: TAKE ONE TABLET BY MOUTH TWICE A DAY FOR DIABETES Quantity: 60 for 30 days Issued: 04/04/24 Filled: 04/04/24 Expires: 05/04/24 Refills: 0 Status: DISCONTINUED OUTPATIENT MEDICATIONS (LOCAL) WITHIN 90 DAYS: FLUOXETINE HCL 20MG CAP Directions: TAKE ONE CAPSULE BY MOUTH DAILY FOR MOOD Quantity: 90 for 90 days Issued: 04/21/24 Filled: 07/10/24 Expires: 04/22/25 Refills: 2 Status: ACTIVE/SUSP AMLODIPINE BESYLATE 10MG TAB Directions: TAKE ONE TABLET BY MOUTH DAILY FOR BLOOD PRESSURE/HEART - DO NOT DRINK GRAPEFRUIT JUICE WHILE ON THIS DRUG REPLACES NIFEDIPINE Quantity: 90 for 90 days Issued: 05/21/23 Filled: 08/26/23 Expires: 05/21/24 Refills: 2 Status: DISCONTINUED APIXABAN 5MG TAB Directions: TAKE ONE-HALF TABLET BY MOUTH TWICE A DAY TO THIN BLOOD -CALL ANTICOAGULATION CLINIC [phone] WITH QUESTIONS OR CONCERNS Quantity: 60 for 60 days Issued: 11/22/23 Filled: 02/26/24 Expires: 11/22/24 Refills: 5 Status: DISCONTINUED CHLORTHALIDONE 25MG TAB Directions: TAKE ONE TABLET BY MOUTH DAILY FOR BLOOD PRESSURE Quantity: 60 for 60 days Issued: 02/21/24 Filled: 02/22/24 Expires: 04/21/24 Refills: 0 Status: DISCONTINUED CHLORTHALIDONE 25MG TAB Directions: TAKE ONE TABLET BY MOUTH DAILY FOR BLOOD PRESSURE Quantity: 30 for 30 days Issued: 04/21/24 Filled: 04/21/24 Expires: 05/21/24 Refills: 0 Status: DISCONTINUED DESONIDE 0.05% CREAM Directions: APPLY SMALL AMOUNT TO AFFECTED AREA TWICE A DAY FOR SKIN RASH -APPLY TO DRY SCALY AREAS OF FACE AND EARS UNTIL CLEAR AND THEN NEEDED. Quantity: 60 for 60 days Issued: 03/12/23 Filled: 03/13/23 Expires: 03/12/24 Refills: 5 Status: DISCONTINUED FLUOXETINE HCL 20MG CAP Directions: TAKE ONE CAPSULE BY MOUTH DAILY FOR MOOD Quantity: 90 for 90 days Issued: 05/21/23 Filled: 01/16/24 Expires: 05/21/24 Refills: 0 Status: DISCONTINUED GABAPENTIN 300MG CAP Directions: TAKE TWO CAPSULES BY MOUTH TWICE A DAY FOR NERVE PAIN Quantity: 120 for 30 days Issued: 07/26/23 Filled: 08/26/23 Expires: 07/26/24 Refills: 0 Status: DISCONTINUED GABAPENTIN 300MG CAP Directions: TAKE TWO CAPSULES BY MOUTH TWICE A DAY FOR NERVE PAIN Quantity: 120 for 30 days Issued: 10/08/23 Filled: 02/29/24 Expires: 10/08/24 Refills: 0 Status: DISCONTINUED [id number] PENTOXIFYLLINE SA 400MG/PBO Directions: TAKE ONE TABLET [...] 12/31/23 Expires: 05/21/24 Refills: 0 Status: DISCONTINUED PANTOPRAZOLE NA 40MG EC TAB Directions: TAKE ONE TABLET BY MOUTH TWICE A DAY 30 MINUTES BEFORE A MEAL FOR STOMACH, 30 MINUTES BEFORE A MEAL. TAKE ON AN EMPTY STOMACH. Quantity: 180 for 90 days Issued: 05/21/23 Filled: 01/14/24 Expires: 05/21/24 Refills: 0 Status: DISCONTINUED SPIRONOLACTONE 25MG TAB Directions: TAKE ONE TABLET BY MOUTH DAILY FOR BLOOD PRESSURE/HEART Quantity: 90 for 90 days Issued: 05/21/23 Filled: 02/17/24 Expires: 05/21/24 Refills: 0 Status: DISCONTINUED APIXABAN 5MG TAB Directions: TAKE ONE TABLET BY MOUTH TWICE A DAY TO THIN BLOOD -CALL ANTICOAGULATION CLINIC [phone] WITH QUESTIONS OR CONCERNS Quantity: 60 for 30 days Issued: 04/13/23 Filled: 04/13/23 Expires: 04/13/24 Refills: 1 Status: DISCONTINUED (EDIT) APIXABAN 5MG TAB Directions: TAKE ONE TABLET BY MOUTH TWICE A DAY TO THIN BLOOD -CALL ANTICOAGULATION CLINIC [phone] WITH QUESTIONS OR CONCERNS Quantity: 120 for 60 days Issued: 04/27/23 Filled: 11/04/23 Expires: 04/27/24 Refills: 2 Status: DISCONTINUED (EDIT) CHLORTHALIDONE 25MG TAB Directions: TAKE ONE-HALF TABLET BY MOUTH DAILY FOR BLOOD PRESSURE Quantity: 45 for 90 days Issued: 05/21/23 Filled: 11/14/23 Expires: 05/21/24 Refills: 1 Status: DISCONTINUED (EDIT) CLINIC MEDICATIONS (LOCAL): SODIUM CHLORIDE 0.9% INJ,SOLN Solution: SODIUM CHLORIDE 0.9% (1000 ML) Issued: 04/15/24 Expires: 04/15/24 Status: DISCONTINUED SODIUM CHLORIDE 0.9% INJ,SOLN Solution: SODIUM CHLORIDE 0.9% (1000 ML) Issued: 04/15/24 Expires: 04/15/24 Status: DISCONTINUED Reviewed current medications with patient/signficant other, patient/significant other reports patient taking ALL VA, Non VA & OTC medications as listed on [facility] medication tab outpatient section. Yes *Printed copy of medication list provided to patient and reviewed. Yes *Explained to the patient the importance of keeping providers updated on medication changes and to carrying an updated list of medication at all times in case of an emergency situation. Yes /arleth/ LAMBERTO SCHROEDER Licensed Practical Nurse Signed: 05/09/2024 10:43 LAMBERTO [facility]ED[facility]
--- OUTSIDE RECORDS SUMMARY | 2024-05-13 06:14 | XMS_ITS | Encounter Summary ---
Author Name [facility] [place] Organization [facility] [place] Address [address] [place] [address] Care Team Providers Care Product Design Manager Name Role Phone ESTELA MAYLIN Primary Care [...] RISSA SHIRLEY Mar 04, 2012 RISSA RODRIGUEZ [id number] HERONNORMA RICHARDSE PATIENT [facility] (WNR) MEDICARE ADVANTAGE [facility] (WNR) Jul 30, 2017 [id number] [phone] HERON,NORMA WELLINGTON PATIENT [facility] [facility] (WNR) MEDICARE ADVANTAGE [facility](W NR) Jul 30, 2017 [id number] [phone] HERON,NORMAJoel GODOYE PATIENT [facility] (WNR) [facility] MEDIC ARE BRAULIO Connell Jul 30, 2012 [id number] NORMA SHELYB PATIENT MEDICARE (WNR) MEDICARE (M) PART A Jul 30, 2017 PART A [id number] NORMA SHELBY PATIENT MEDICARE (WNR) MEDICARE (M) PART B Jul 30, 2017 PART B [id number] NORMA SHELBY PATIENT MEDICARE PART D (WNR) PRESCRIPT ION PART D Jul 30, 2017 PART D [id number] NORMA SHELBY PATIENT MEDICARE PART D (WNR) MEDICARE (M) PART D Jul 30, 2017 PART D [id number] NORMA SHELBY PATIENT MEDICARE PART D (WNR) MEDICARE (M) PART D Jul 30, 2017 PART D [id number] [phone] NORMA SHELBY PATIENT MEDICARE PART D (WNR) MEDICARE (M) PART D Jul 30, 2012 PART D [id number] NORMA SHELBY PATIENT Selected Encounter This section includes the information on record at [place] for the Encounter. Date/Time Encounter Type Encounter Description Reason Provider Source May 13, 2024 10:14 AM SELF-MGMT EDUC & TRAIN 1 PT ADMIN PAT ACTIVTIES (MASNONCT) ICD-10-CM I10 Essential (primary) hypertension PRISCILLA SANTOS Encounter Template Text not used by [place] Assessments - Encounter Diagnoses This section includes the primary and secondary diagnoses documented for the Encounter. Date/Time Primary/Secondary Diagnosis Diagnosis Name Provider Source May 20, 2024 03:18 PM PRIMARY Essential (primary) [facility] May 20, 2024 03:18 PM SECONDARY Encntr for obs for oth suspected diseases and cond ruled out LONA SANTOS [facility] Plan of Treatment: Future Appointments (+ 6 months) and Future Tests (+/- 45 days) The Plan of Treatment section includes future care activities for the patient from all [facility] treatment[facility]ilities. This section includes future appointments and future orders which are active, pending or scheduled. Future Appointments This section includes appointments that were scheduled to occur 6 months from the date of the Encounter, up to a maximum of 20 appointments. The data comes from all [facility]. Appointment Date/Time Appointment Type Appointme nt Facility Name May 20, 2024 11:00 AM AMBULATORY - MEDICINE [facility] Jun 25, 2024 09:45 AM AMBULATORY - MEDICINE [facility] Jul 08, 2024 01:40 PM [facility] Sep 16, 2024 01:20 PM AMBULATORY - MEDICINE [facility] Oct 20, 2024 11:20 AM AMBULATORY - MEDICINE [facility] Oct 29, 2024 10:30 AM AMBULATORY - SURGERY [facility] Nov 04, 2024 11:00 AM AMBULATORY - MEDICINE [facility] Nov 04, 2024 01:40 PM AMBULATORY - SURGERY [facility] Active, Pending, and Scheduled Orders This section includes a listing of several types of active, pending, and scheduled orders, including clinic medications orders, diagnostic test orders, procedure orders and consult orders; where the start date of the order is 45 days before the date of the Encounter or 45 days after the date of theEncounter. The data comes from all [facility]. Test Date/Time Test Type Test Details Facility Name Apr 15, 2024 02:03 PM Laboratory - Chemi stry Order CBC/PLT [id number] BLOOD STAT WC ONCE [facility] Lab Results: +/- 30 days of the encounter This section includes the Chemistry and Hematology Lab Results on record with [place] for the patient. Radiology Reports and Pathology Reports are provided separately, in subsequent sections. Lab Results This section contains the Chemistry/Hematology Results that were resulted 30 days before or 30 daysafter the date of the Encounter. Date/Time Source Result Type Result - Unit Interpretation Reference Range Specimen Type Comment May 05, 2024 02:08 PM [facility] N PANEL 1 PLASMA Specimen [...] Apr 21, 2024 11:25 AM Reporting Lab: [address] [address] Performing Lab: [address] [address] CREATININE 2.39 mg/dL H 0.72-1.25 UREA NITROGEN 30 mg/dL H 9-25 GLUCOSE 126 mg/dL H 74-100 SODIUM 140 mmol/L 136-145 POTASSIUM 5.0 mmol/L 3.5-5.1 CHLORIDE 110 mmol/L H 98-107 CO2 21 mmol/L L 22-29 CALCIUM 9.9 mg/dL 8.4-10.2 ANION GAP 9 meq/L 3-19 eGFR (CKD-EPI) 27 Apr 18, 2024 11:13 AM [facility] GLUCOSE-HAND MONITOR CAPILLARY Specime n Type: CAPILLARY Comment: Test performed by: [id number] Meter #: [id number] Ordering Provider: CHERYL HURT Report Released Date/Time: Apr 18, 2024 11:44 AM Reporting Lab: [address] [address] Performing Lab: [address] [address] GLUCOSE-HAND MONITOR 110 mg/dL H 71-99 Apr 18, 2024 07:58 AM [facility] PANEL 1 PLASMA Specimen Type: [...] Apr 17, 2024 03:26 PM Reporting Lab: [place] [phone] Performing Lab: [place] [phone] CREATININE 2.05 mg/dL H 0.72-1.25 UREA NITROGEN 28 mg/dL H 9-25 GLUCOSE 177 mg/dL H 74-100 SODIUM 137 mmol/L 136-145 POTASSIUM 4.3 mmol/L 3.5-5.1 CHLORIDE 109 mmol/L H 98-107 CO2 21 mmol/L L 22-29 CALCIUM 8.6 mg/dL 8.4-10.2 ANION GAP 7 meq/L 3-19 eGFR (CKD-EPI) 32 Apr 18, 2024 07:00 AM [facility] GLUCOSE-HAND MONITOR CAPILLARY Specime n Type: CAPILLARY Comment: CARLOS RN notified Test performed by: [id number] Meter #: [id number] Ordering Provider: CHERYL HURT Report Released Date/Time: Apr 18, 2024 07:22 AM Reporting Lab: [address] [address] Performing Lab: [address] [address] GLUCOSE-HAND MONITOR 127 mg/dL H -Apr 17, 2024 08:26 PM [facility] GLUCOSE-HAND MONITOR CAPILLARY Specime n Type: CAPILLARY Comment: CARLOS RN notified Test performed by: [id number] Meter #: [id number] Ordering Provider: CHERYL HURT Report Released Date/Time: Apr 17, 2024 09:24 PM Reporting Lab: [address] [address] Performing Lab: [place] [phone] GLUCOSE-HAND MONITOR 164 mg/dL H 71-Apr 17, 2024 04:45 PM [facility] GLUCOSE-HAND MONITOR CAPILLARY Specime n Type: CAPILLARY Comment: CARLOS RN notified Test performed by: [id number] Meter #: [id number] Ordering Provider: CHERYL HURT Report Released Date/Time: Apr 17, 2024 05:19 PM Reporting Lab: [address] [address] Performing Lab: [address] [address] GLUCOSE-HAND MONITOR 161 mg/dL H Apr 17, 2024 12:11 PM [facility] GLUCOSE-HAND MONITOR CAPILLARY Specime n Type: CAPILLARY Comment: Test performed by: [id number] Meter #: [id number] Ordering Provider: CHERYL HURT Report Released Date/Time: Apr 17, 2024 12:46 PM Reporting Lab: [address] [address] Performing Lab: [address] [address] GLUCOSE-HAND MONITOR 116 mg/dL H Apr 17, 2024 07:33 AM [facility] PANEL 1 PLASMA Specimen Type: [...] Apr 16, 2024 03:40 PM Reporting Lab: [address] [address] Performing Lab: [address] [address] CREATININE 2.39 mg/dL H 0.72-1.25 UREA NITROGEN 35 mg/dL H 9-25 GLUCOSE 117 mg/dL H 74-100 SODIUM 138 mmol/L 136-145 POTASSIUM 4.3 mmol/L 3.5-5.1 CHLORIDE 110 mmol/L H 98-107 CO2 22 mmol/L 22-29 CALCIUM 8.7 mg/dL 8.4-10.2 ANION GAP 6 meq/L 3-19 eGFR (CKD-EPI) Apr 17, 2024 07:33 AM [facility] CBC/PLT BLOOD Specimen Type: BLOOD No comment entered. Ordering Provider: EDGARDO GARCIA Report Released Date/Time: Apr 16, 2024 03:40 PM Reporting Lab: [address] [address] Performing Lab: [address] [address] WBC 8.8 10*3/uL 5.0-10.0 RBC 4.05 10*6/uL L 4.6-6.2 HGB 11.4 g/dL L 14.0-18.0 HCT 36.1 L 42.0-52.0 MCV 89.1 fL 80.0-94.0 MCH 28.1 pg 27.0-31.0 MCHC 31.6 g/dL L 32.0-36.0 PLT 165 10*3/uL 150-450 MPV 10.4 fL 9.0-13.1 RDW 13.4 11.0-16.0 NRBC 0.0 0.0-0.0 Apr 17, 2024 06:55 AM [facility] GLUCOSE-HAND MONITOR CAPILLARY Specime n Type: CAPILLARY Comment: CARLOS RN notified Test performed by: [id number] Meter #: [id number] Ordering Provider: CHERYL HURT Report Released Date/Time: Apr 17, 2024 07:16 AM Reporting Lab: [place] [phone] Performing Lab: [place] [phone] GLUCOSE-HAND MONITOR 125 mg/dL H Apr 16, 2024 08:45 PM [facility] GLUCOSE-HAND MONITOR CAPILLARY Specime n Type: CAPILLARY Comment: CARLOS RN notified Test performed by: [id number] Meter #: [id number] Ordering Provider: CHERYL HURT Report Released Date/Time: Apr 16, 2024 10:14 PM Reporting Lab: [address] [address] Performing Lab: [place] [phone] GLUCOSE-HAND MONITOR 138 mg/dL H Apr 16, 2024 04:48 PM [facility] GLUCOSE-HAND MONITOR CAPILLARY Specime n Type: CAPILLARY Comment: CARLOS RN notified Test performed by: [id number] Meter #: [id number] Ordering Provider: CHERYL HURT Report Released Date/Time: Apr 16, 2024 05:42 PM Reporting Lab: [address] [address] Performing Lab: [place] [phone] GLUCOSE-HAND MONITOR 110 mg/dL H Apr 16, 2024 12:03 PM [facility] GLUCOSE-HAND MONITOR CAPILLARY Specime n Type: CAPILLARY Comment: CARLOS RN notified Test performed by: [id number] Meter #: [id number] Ordering Provider: CHERYL HURT Report Released Date/Time: Apr 16, 2024 01:01 PM Reporting Lab: [address] [address] Performing Lab: [address] [address] GLUCOSE-HAND MONITOR 126 mg/dL H 71-99 Apr 16, 2024 08:10 AM [facility] CBC/PLT BLOOD Specimen Type: BLOOD No comment entered. Ordering Provider: EDGARDO GARCIA Report Released Date/Time: Apr 15, 2024 11:24 PM Reporting Lab: [address] [address] Performing Lab: [address] [address] WBC 9.5 10*3/uL 5.0-10.0 RBC 4.19 10*6/uL L 4.6-6.2 HGB 11.6 g/dL L 14.0-18.0 HCT 37.0 L 42.0-52.0 MCV 88.3 fL 80.0-94.0 MCH 27.7 pg 27.0-31.0 MCHC 31.4 g/dL L 32.0-36.0 PLT 163 10*3/uL 150-450 MPV 10.4 fL 9.0-13.1 RDW 13.5 11.0-16.0 NRBC 0.0 0.0-0.0 Apr 16, 2024 08:10 AM [facility] PANEL 1 PLASMA Specimen Type: [...] Apr 15, 2024 11:24 PM Reporting Lab: [address] [address] Performing Lab: [address] [address] CREATININE 3.29 mg/dL H 0.72-1.25 UREA NITROGEN 40 mg/dL H 9-25 GLUCOSE 151 mg/dL H 74-100 SODIUM 136 mmol/L 136-145 POTASSIUM 3.7 mmol/L 3.5-5.1 CHLORIDE 109 mmol/L H 98-107 CO2 18 mmol/L L 22-29 CALCIUM 8.5 mg/dL 8.4-10.2 ANION GAP 9 meq/L 3-19 eGFR (CKD-EPI) Apr 16, 2024 06:43 AM [facility] GLUCOSE-HAND MONITOR CAPILLARY Specime n Type: CAPILLARY Comment: Test performed by: [id number] Meter #: [id number] Ordering Provider: CHERYL HURT Report Released Date/Time: Apr 16, 2024 07:14 AM Reporting Lab: [address] [address] Performing Lab: [address] [address] GLUCOSE-HAND MONITOR 111 mg/dL H -Apr 16, 2024 06:00 AM [facility] MRSA SURVL NARES DNA NARES Specime n [...] Apr 15, 2024 11:24 PM Reporting Lab: [address] [address] Performing Lab: [address] [address] MRSA SURVL NARES DNA Negative Negative Apr 15, 2024 11:44 PM [facility] GLUCOSE-HAND MONITOR CAPILLARY Specime n Type: CAPILLARY Comment: Test performed by: [id number] Meter #: [id number] Ordering Provider: CHERYL HURT Report Released Date/Time: Apr 16, 2024 12:31 AM Reporting Lab: [address] [address] Performing Lab: [address] [address] GLUCOSE-HAND MONITOR 149 mg/dL H Apr 15, 2024 07:21 PM [facility] OVA AND PARASITE EXAM, GIARDIA (LC) FECES Specimen Type: FECES Comment: No ova, cysts, or parasites seen. . One negative specimen does not rule out the possibility of a parasitic infection. Ordering Provider: CARRINGTON GRISSOM Report Released Date/Time: Apr 15, 2024 06:03 PM Reporting Lab: [place] [phone] Performing Lab: [facility] [address] [facility] [address] .OVA & PARASITE EXAM (LC) Comment .GIARDIA EIA (LC) Negative Negative Apr 15, 2024 07:21 PM [facility] C DIFF TOXIN BY PCR/REFLEX TO EIA FECES Specimen Type: FECES Comment: This CepWorkanaid Xpert C DIFF PCR Assay targets the [...] Apr 15, 2024 06:03 PM Reporting Lab: [place] [address] Performing Lab: [place] [address] C DIFF TOX B GENE PCR Negative Negative Apr 15, 2024 07:21 PM [facility] WBC FECES (LACTOFERRIN) FECES Spec imen Type: FECES No comment entered. Ordering Provider: CARRINGTON GRISSOM Report Released Date/Time: Apr 15, 2024 06:03 PM Reporting Lab: [place] [phone] Performing Lab: [place] [address] WBC FECES (LACTOFERRIN) POSITIVE Negativ e Apr 15, 2024 05:53 PM [facility] URINE LYTES URINE Specimen Type : URINE No comment entered. Ordering Provider: CARRINGTON GRISSOM Report Released Date/Time: Apr 15, 2024 04:12 PM Reporting Lab: [place] [phone] Performing Lab: [place] [phone] SODIUM 42 mmol/L POTASSIUM 20.7 mmol/L CHLORIDE 28 mmol/L Apr 15, 2024 05:53 PM [facility] URINALYSIS URINE Specimen Type : URINE No comment entered. Ordering Provider: CARRINGTON GRISSOM Report Released Date/Time: Apr 15, 2024 02:03 PM Reporting Lab: [address] [address] Performing Lab: [address] [address] URINE COLOR Yellow Colorless-Yellow APPEARANCE CLOUDY H [...] H None Apr 15, 2024 05:26 PM [facility] MRSA SURVL NARES DNA NARES Specime n [...] Apr 15, 2024 04:28 PM Reporting Lab: [address] [address] Performing Lab: [address] [address] MRSA SURVL NARES DNA Negative Negative Apr 15, 2024 02:41 PM [facility] LACTIC ACID PLASMA Specimen Type : PLASMA No comment entered. Ordering Provider: CARRINGTON GRISSOM Report Released Date/Time: Apr 15, 2024 02:03 PM Reporting Lab: [address] [address] Performing Lab: [address] [address] LACTIC ACID 1.4 mmol/L 0.5-2.2 Apr 15, 2024 02:41 PM [facility] LIPASE PLASMA Specimen Type: PLASM A Comment: [...] Apr 15, 2024 02:03 PM Reporting Lab: [address] [address] Performing Lab: [address] [address] LIPASE 11 U/L 8-78 Apr 15, 2024 02:41 PM [facility] PANEL 2 PLASMA Specimen Type: ALLIE RYAN Comment: Estimated Glomerular Filtration Rate (eGFR) calculated [...] Apr 15, 2024 02:03 PM Reporting Lab: [facility] [address] [facility] [address] Performing Lab: [address] [address] TOTAL PROTEIN 7.2 g/dL 6.4-8.3 ALBUMIN 3.8 g/dL 3.5-5.2 TOTAL BILIRUBIN 0.6 mg/dL 0.2-1.2 AST 21 U/L 5-34 ALT 18 U/L 0-55 ALK PHOS 60 U/L 40-150 BILIRUBIN-DIRECT 0.2 mg/dL 0.0-0.5 Apr 15, 2024 02:41 PM [facility] PANEL 1 PLASMA Specimen Type: [...] Apr 15, 2024 02:03 PM Reporting Lab: [address] [address] Performing Lab: [address] [address] CREATININE 4.52 mg/dL H 0.72-1.25 UREA NITROGEN 41 mg/dL H 9-25 GLUCOSE 110 mg/dL H 74-100 SODIUM 135 mmol/L L 136-145 POTASSIUM 3.9 mmol/L 3.5-5.1 CHLORIDE 104 mmol/L 98-107 CO2 20 mmol/L L 22-29 CALCIUM 8.8 mg/dL 8.4-10.2 ANION GAP 11 meq/L 3-19 eGFR (CKD-EPI) 12 Apr 15, 2024 02:41 PM [facility] CBC/PLT BLOOD Specimen Type: BLOOD Comment: ~STAT Ordering Provider: CARRINGTON GRISSOM Report Released Date/Time: Apr 15, 2024 02:03 PM Reporting Lab: [address] [address] Performing Lab: [address] [address] WBC 11.3 10*3/uL H 5.0-10.0 RBC 4.04 10*6/uL L 4.6-6.2 HGB 11.5 g/dL L 14.0-18.0 HCT 36.3 L 42.0-52.0 MCV 89.9 fL 80.0-94.0 MCH 28.5 pg 27.0-31.0 MCHC 31.7 g/dL L 32.0-36.0 PLT 166 10*3/uL 150-450 MPV 10.6 fL 9.0-13.1 RDW 13.6 11.0-16.0 NRBC 0.0 0.0-0.0 Apr 15, 2024 02:41 PM [facility] PLASMA Specimen Type: PLASM A Comment: Estimated [...] Apr 15, 2024 02:03 PM Reporting Lab: [address] [address] Performing Lab: [address] [address] [facility] 0.[facility] ng/mL H 0.00-0.50 Apr 15, 2024 02:41 PM [facility] COVID-19 AND FLU/RSV DIAGNOSTIC PANEL NASOPH ARYNX [...] Food and Drug Administration's Emergency Use Authorization. Needle HR Genexpert (596) Ordering Provider: CARRINGTON GRISSOM Report Released Date/Time: Apr 15, 2024 02:03 PM Reporting Lab: [address] [address] Performing Lab: [address] [address] COVID-19 PCR (FLUVID) Negative Negative FLU A PCR (FLUVID) Negative Negative FLU B PCR (FLUVID) Negative Negative RSV PCR (FLUVID) Negative Negative Apr 15, 2024 02:41 PM [facility] AUTOMATED DIFF BLOOD Specimen Type : BLOOD Comment: ~STAT Ordering Provider: CARRINGTON GRISSOM Report Released Date/Time: Apr 15, 2024 02:03 PM Reporting Lab: [address] [address] Performing Lab: [facility] [address] [facility] [address] A-LYMPH % 21.9 L 24.0-44.0 A-MONO % 14.9 H 0.1-6.0 A-GRAN % 58.9 42.0-75.0 A-LYMPH # 2.47 10*3/uL 1.20-3.40 A-MONO # 1.68 10*3/uL H 0.00-0.60 A-GRAN # 6.63 10*3/uL H 1.40-6.50 A-BASO % 0.3 0.0-3.0 A-BASO # 0.03 10*3/uL 0.00-0.20 A-EOS % 3.7 0.0-10.0 A-EOS # 0.42 10*3/uL 0.00-0.70 A-IG % 0.3 0.0-0.5 A-IG # 0.03 10*3/uL 0.00-0.06 Vital Signs: All taken on the encounter date This section contains inpatient and outpatient Vital Signs collected on the date of the Encounter. Date/Time Temperature Pulse Blood Pressure Respiratory Rate SP02 Pain Height Weight Body Mass Index Source May 13, 2024 11:31 AM 0 [place] [facility] Social History: Smoking Status (Most current) and Tobacco Use (All prior to encounter date) This section includes the most current, and the historical, smoking and tobacco- related health factors from the [place] facility where the Encounter took place. Current Smoking Status This section includes the most current smoking, or tobacco-related health factor, from the [place] facility where the Encounter took place. Date/Time Current Smoking Status Comment Corbin ity Apr 09, 2024 10:30 AM VA-TOBACCO FORMER USER [facility] Tobacco Use History This section includes a history of the smoking, or tobacco-related health factors, that were collected on or before the date of the Encounter. The data comes from the [place] facility where the Encounter took place. Date/Time Smoking Status/Tobacco Use Comment F tyrel Apr 09, 2024 10:30 AM IN-TOBACCO QUIT 15 YRS OR MORE [facility] May 08, 2023 02:30 PM VA-TOBACCO FORMER USER [facility] May 08, 2023 02:30 PM VA-TOBACCO QUIT 5 TO < 15 YRS [facility] May 26, 2022 11:00 AM VA-TOBACCO FORMER USER [facility] May 26, 2022 11:00 AM VA-TOBACCO QUIT 5 TO < 15 YRS [facility] Jun 22, 2021 10:00 AM VA-TOBACCO FORMER USER [facility] Jun 22, 2021 10:00 AM VA-TOBACCO QUIT 5 TO < 15 YRS [facility] Jul 05, 2020 11:00 AM VA-TOBACCO FORMER USER [facility] Jul 05, 2020 11:00 AM VA-TOBACCO QUIT 5 TO < 15 YRS [facility] Apr 25, 2019 02:40 PM VA-TOBACCO FORMER USER [facility] Apr 25, 2019 02:40 PM VA-TOBACCO QUIT 5 TO < 15 YRS [facility] Jun 27, 2018 09:46 AM VA-TOBACCO FORMER USER [facility] Jun 27, 2018 09:46 AM VA-TOBACCO QUIT 5 TO < 15 YRS [facility] Jul 27, 2017 09:25 AM V9 LIFETIME NON-USER OF TOBACCO [facility] Aug 22, 2016 08:58 AM V9 LIFETIME NON-USER OF TOBACCO [facility] Sep 14, 2015 09:30 AM V9 LIFETIME NON-USER OF TOBACCO [facility] Sep 03, 2014 07:39 AM V9 LIFETIME NON-USER OF TOBACCO [facility] Apr 22, 2013 09:17 AM V9 QUIT TOBACCO IN THE LAST 12 MONTHS [facility] Jun 14, 2012 02:12 PM V9 QUIT TOBACCO >1 2 MO & <7 YRS AGO [facility] Feb 07, 2011 03:23 PM V9 QUIT TOBACCO >7 YEARS AGO [facility] Jan 20, 2010 02:15 PM V9 QUIT TOBACCO >7 YEARS AGO [facility] Radiology Reports: +/- 30 days of [...] the Encounter. The data comes from all [place] treatment facilities. Date/Time Radiology Report Provider Source Apr 15, 2024 05:07 PM CHEST TWO(2) VIEW PA&LAT: CHELSEY SHELBY [id number] -1945 M Exm Date: APR 15, 2024@17:07 Req Phys: CARRINGTON GRISSOM Loc: ED/7A-4PM (Req'g Loc) Img Loc: CDD RADIOLOGY Service: [place] [address] (Case [id number] COMPLETE) CHEST TWO(2) VIEW PA&LAT (RAD Detailed) CPT:92349 Reason for Study: possible admission, diarrhea for 5 days , willis. Clinical History: Report Status: Verified Date Reported: APR 15, 2024 Date Verified: APR 15, 2024 [employer] E-Sig: Report: PA and lateral chest CLINICAL [...] Interpreting Staff: JAMARI GALEANA, RADIOLOGIST Verified by board finisher for JAMARI GALEANA /JAMARI [facility] Apr 15, 2024 05:[address] ABD/PELVIS W/O CONT (RENAL STONE PROTOCOL): CHELSEY SHELBY [id number] -1945 M Exm Date: APR 15, 2024@17:00 Req Phys: CARRINGTON GRISSOM Loc: ED/7A-4PM (Req'g Loc) Img Loc: CT SCAN Service: [place] [address] (Case [id number] COMPLETE) CT ABD/PELVIS W/O CONTRAST (CT Detailed) CPT:39275 Reason for Study: SEE CLINICAL HISTORY Clinical History: 22. Suspected diverticulitis HISTORY/REASON FOR EXAM: patient with WILLIS and diarrhea for 5 days white count about 11. No specifica abdominal pain. Report Status: Verified Date Reported: APR 15, 2024 Date Verified: APR 15, 2024 [employer] E-Sig: Report: HISTORY SEE CLINICAL [id number]. Suspected diverticulitisHISTORY/REASON FOR EXAM:patient with WILLIS and [...] Staff: ANDREW GARCIA, Staff Physician Verified by board finisher for ANDREW GARCIA /[facility] Encounter Notes: All associated encounter notes This section contains the clinical notes associated to the Encounter. Date/Time Encounter Note(s) Provider Source May 13, 2024 12:01 PM CARE COORDINATION HOME TELEHEALTH EDUCATION NOTE: LOCAL TITLE: HT TECH EDUCATION NOTE STANDARD TITLE: CARE COORDINATION HOME TELEHEALTH EDUCATION NOTE DATE OF NOTE: MAY 13, 2024@12:01 ENTRY DATE: MAY 13, 2024@12:01:58 AUTHOR: DEDE SANTOS EXP COSIGNER: URGENCY: STATUS: COMPLETED HT Admission Date: 05/13/2024 HT Diagnosis: Primary: HTN Co-Morbidity: n/a Primary Care Provider: MAYLIN Mendes Provider ordered vital sign goals: SBP<140, DBP<90 ([id number]) HT electronic capture of the blood pressure? Yes HT Emergency classification: low HT Category of Care: LEWIS, Last completion Date: 05/13/24 - Initial 's 3 month average response rate percentage: 100% - New HT Equipment Assigned: [employer] Omnivisor CMDR 390GA HT Device HUB HT Peripheral Device(s): HT BPM 651BLE WR IB BT Transmitting: Cellular O2: no Lives alone: Yes- when at home; however, spend a lot of his time at [facility] house HOME TELEHEALTH (HT) TECH EDUCATION AND INSTALLATION NOTE Home Monitoring technology assigned: In Home Messaging Device (IHMD) Vendor: [employer] Omnivisor CMDR 390(GA-ATT) HT Hub Device Connection via: [employer] [place] Current Phone Contact info: Cell #: Home #: n/a National HT Mandatory COOP info for Emergency / Natural Disaster Preparedness = [place] Best contact phone# and time of day: cellphone any day after 10 a.m. = oxygen in use: no Lives alone: YES (when at his home; however, spends a lot of time at [facility] house) Mobility issues/ concerns (assistive devices in use)= amb with cane- leg weakness; vision impaired= wears glasses Confirmed Mailing Address: (stays with unnamed FSO often - her address) = requests HT device to be mailed here [address] [place] [address] County: [place] (093) Confirmed Residential Address for : [place] [address] [place] [facility]: [place] (092) Emergency contact/ Next of Kin (NOK): Nicole Shelby HT Peripheral Device(s): HT BPM 651BLE WR IB BT (WR-WIDE RANGE) Blood pressure Monitor with pulse Entry: [place] [employer], Order #[id number] Delivery mode: Mailed to from [facility] ([employer]) Technology installed by: /Caregiver /Caregiver was educated on technology by: Clinical Research Assistant (name): BEN Barrett (MIMI), RN [phone]. [phone] or [place] cell phone # staff radiologist (name): SIGRID [phone]. [phone] Contract vendor (name): [employer] [place]/Caregiver is able to understand verbal instructions. /Caregiver is able to follow visual instructions. /Caregiver has adequate hearing (for Interactive Voice Response). /Caregiver does not need learning aid. /Caregiver trained on the following: Level of Understanding: Good Power and phone connections Checking phone for dial tone Safety information Ability to read and answer questions Ability to push appropriate buttons When to contact staff for technology problems How to connect and transmit vital sign data Whom to call for urgent/emergent needs Other: If Emergency Dial 911 or Have someone drive you to the nearest ED. Call Telephone Care Triage if have problems or questions on weekend or after RPM-HT business hours via . HT Device Set-up: Follow instruction prompts from HT Hub Device; Do Not install CHAD on Smartphone unless using Net Response HT Device. /Caregiver verbalized understanding of how to operate Home Telehealth Technology during telephone enrollment. /Caregiver is able to do return demonstration. Contact information given to /Caregiver? Yes New HT Enrollee Education via phone with this RPM-HT RNCC = - notified that equipment has been ordered, delivery currently pending and should be mailed to house within next 3 to 5 days. - will upon arrival of equipment: set-up and transmit vitals to verify start date/time and validate equipment working properly. va PSA PSA: Please Mail the HT Program New Enrollee educational material, brochures, and Disaster Preparedness info as listed below, Thanks!: Educational Sheets for Newly enrolled Veterans Home Telehealth Brochure/RN information Vendor introduction or Pamphlet Disaster Prep for Srs Salt/Sodium 10 tips Dash Brief Plate Method Reading food Labels Move HTN/HPT What is High B/P Taking your B/P High B/P Risk Controlling High B/P HBP/PAD 05/13/24 LEWIS low for HTN. - HT enrollment documentation completed and HT device ordered. /arleth/ Dede (UZMA) BEN SANTOS RN RPM-HT RNCC Signed: 05/13/2024 13:16 Receipt Acknowledged By: 05/13/2024 15:53 /arleth/ [place] Contract Driver DEDE SANTOS [facility]
--- OUTSIDE RECORDS SUMMARY | 2024-05-19 05:58 | XMS_ITS | Encounter Summary ---
Author Name [facility] [place] Organization [place] Address [address] [place] [address] Care Team Providers Care Retreader Name Role Phone ESTELA MAYLIN Primary Care [...] RISSA SHIRLEY Mar 04, 2012 RISSA RODRIGUEZ [id number] HERONNORMA RICHARDSE PATIENT [employer] [facility] (WNR) MEDICARE ADVANTAGE [facility](W NR) Jul 30, 2017 [id number] HERON,NORMA WELLINGTON PATIENT [employer] [facility] (WNR) MEDICARE ADVANTAGE [facility] (WNR) Jul 30, 2017 [id number] HERON,NORMA WELLINGTON PATIENT [employer] [facility] (WNR) [facility] MEDIC ARE BRAULIO Connell Jul 30, 2012 [id number] NORMA SHELBY PATIENT MEDICARE (WNR) MEDICARE (M) PART A Jul 30, 2017 PART A [id number] NORMA SHELBY PATIENT MEDICARE (WNR) MEDICARE (M) PART B Jul 30, 2017 PART B [id number] NORMA SHELBY PATIENT MEDICARE PART D (WNR) PRESCRIPT ION PART D Jul 30, 2017 PART D [id number] NORMA SHELBY PATIENT MEDICARE PART D (WNR) MEDICARE (M) PART D Jul 30, 2017 PART D [id number] NORMA SHELBY PATIENT MEDICARE PART D (WNR) MEDICARE (M) PART D Jul 30, 2017 PART D [id number] NORMA SHELBY PATIENT MEDICARE PART D (WNR) MEDICARE (M) PART D Jul 30, 2012 PART D [id number] NORMA SHELBY PATIENT Selected Encounter This section includes the information on record at [place] for the Encounter. Date/Time Encounter Type Encounter Description Reason Pro vider Source May 19, 2024 09:58 AM Outpatient Encounter ADMIN PAT ACTIVTIES (MASNONCT) IHE Encounter Template Text not used by NM Plan of Treatment: Future Appointments (+ 6 months) and Future Tests (+/- 45 days) The Plan of Treatment section includes future care activities for the patient from all [place] treatmentfacilities. This section includes future appointments and future orders which are active, pending or scheduled. Future Appointments This section includes appointments that were scheduled to occur 6 months from the date of the Encounter, up to a maximum of 20 appointments. The data comes from all [place] treatment facilities. Appointment Date/Time Appointment Type Appointme nt Facility Name May 20, 2024 11:00 AM AMBULATORY - MEDICINE T[facility]MY NGALKA[facility] Jun 25, 2024 09:45 AM AMBULATORY - MEDICINE TAMMY NGTON-D [facility] Jul 08, 2024 01:40 PM AMBULATORY - SURGERY LEXIN [facility]ON [facility] Sep 16, 2024 01:20 PM AMBULATORY - MEDICINE TAMMY NGALKA-[facility] Oct 20, 2024 11:20 AM AMBULATORY - MEDICINE TAMMY NGTON-CDD [facility] Oct 29, 2024 10:30 AM [facility] Nov 04, 2024 11:00 AM [facility] Nov 04, 2024 01:40 PM [facility] Nov 12, 2024 10:20 AM AMBULATORY - SURGERY [facility] Active, Pending, and Scheduled Orders This section includes a listing of several types of active, pending, and scheduled orders, including clinic medications orders, diagnostic test orders, procedure orders and consult orders; where the start date of the order is 45 days before the date of the Encounter or 45 days after the date of theEncounter. The data comes from all [place] treatment facilities. Test Date/Time Test Type Test Details Facility Name Apr 15, 2024 02:03 PM Laboratory - Chemi stry Order CBC/PLT [id number] BLOOD STAT WC ONCE [facility] Lab Results: +/- 30 days of the encounter This section includes the Chemistry and Hematology Lab Results on record with [place] for the patient. Radiology Reports and Pathology Reports are provided separately, in subsequent sections. Lab Results This section contains the Chemistry/Hematology Results that were resulted 30 days before or 30 daysafter the date of the Encounter. Date/Time Source Result Type Result - Unit Interpretation Reference Range Specimen Type Comment May 05, 2024 02:08 PM [facility] N PANEL 1 PLASMA Specimen Type: PLASMA [...] Apr 21, 2024 11:25 AM Reporting Lab: [address] [id number] Performing Lab: [address] [id number] CREATININE 2.39 mg/dL H 0.72-1.25 UREA NITROGEN 30 mg/dL H 9-25 GLUCOSE 126 mg/dL H 74-100 SODIUM 140 mmol/L 136-145 POTASSIUM 5.0 mmol/L 3.5-5.1 CHLORIDE 110 mmol/L H 98-107 CO2 21 mmol/L L 22-29 CALCIUM 9.9 mg/dL 8.4-10.2 ANION GAP 9 meq/L 3-19 eGFR (CKD-EPI) 27 Social History: Smoking Status (Most current) and Tobacco Use (All prior to encounter date) This section includes the most current, and the historical, smoking and tobacco- related health factors from the [place] facility where the Encounter took place. Current Smoking Status This section includes the most current smoking, or tobacco-related health factor, from the [place] facility where the Encounter took place. Date/Time Current Smoking Status Comment Facil ity December 08, 2008 06:50 PM V9 QUIT TOBACCO >7 YEARS AGO [facility] Tobacco Use History This section includes a history of the smoking, or tobacco-related health factors, that were collected on or before the date of the Encounter. The data comes from the [facility] where the Encounter took place. Date/Time Smoking Status/Tobac co Use Comment Facility Sep 25, 2007 07:04 PM TOBACCO OFFERRED PT MEDS (PROVIDER) [facility] Sep 25, 2007 07:04 PM V9 CURRENT TOBACCO USER [facility] Sep 25, 2007 07:04 PM V9 TOBACCO OFFERED [facility] Aug 16, 2006 05:31 PM TOBACCO OFFERRED PT MEDS (PROVIDER) [facility] Aug 16, 2006 05:31 PM V9 CURRENT TOBACCO USER [facility] Aug 16, 2006 05:31 PM V9 TOBACCO OFFERED [facility] Feb 08, 2006 02:21 PM HF V9 SECOND TOBACCO STEWARD/STEWARDESS ECONOMY CLASS [address] [place] [address] Sep 19, 2005 02:18 PM HF V9 CURRENT SMOKER SMOKES ABOUT 1/2 PPD [facility] Feb 07, 2005 02:38 PM HF V9 SECOND TOBACCO STEWARD/STEWARDESS ECONOMY CLASS [address] [place] [address] Aug 30, 2004 11:28 AM HF V9 THIRD TOBACCO STEWARD/STEWARDESS ECONOMY CLASS SMOKES UP TO 1 PACK EVERY COUPLE OF DAYS [facility] Mar 15, 2004 03:48 PM HF V9 CURRENT SMOKER [address] [place] [address] Sep 01, 2003 11:25 AM HF V9 SECOND TOBACCO STEWARD/STEWARDESS ECONOMY CLASS 10 CIGARETTES A DAY [facility] Oct 21, 2002 12:42 PM HF V9 CURRENT SMOKER 1 pack a day [facility] Encounter Notes: All associated encounter notes This section contains the clinical notes associated to the Encounter. Date/Time Encounter Note(s) Provider Source May 19, 2024 09:58 AM PHARMACY TELEPHONE ENCOUNTER NOTE: LOCAL TITLE: PHARMACY TELEPHONE CARE NOTE STANDARD TITLE: PHARMACY TELEPHONE ENCOUNTER NOTE DATE OF NOTE: MAY 19, 2024@09:58 ENTRY DATE: MAY 19, 2024@09:58:44 AUTHOR: KATI MORALES COSIGNER: URGENCY: STATUS: COMPLETED 1. Name of caller: 2. Phone #: 3. Specialty Clinic/Primary Care Team: Progress Note Date Title Author (and Author's Title) APR 09, 2024@10:22 PC PROGRESS NOTE MAYLIN PALMER (STAFF PHYSICIA 4. Medication: METFORMIN HCL 500MG TA 5. Last fill date: 05.09.24 Provider: seda presley 6. The caller requests prescription: Mailed 7. View Alert to: /arleth/ Kati Morales CPhT Pharmacy Pitching Coach Signed: 05/19/2024 09:59 Receipt Acknowledged By: 05/19/2024 12:19 /es/ JOANA GEORGE RN [facility] Diabetes/Endocrine/Arc Welding Machine Operator 05/20/2024 15:51 /arleth/ JOSR PRESLEY staff physician [facility]AL[facility]
--- OUTSIDE RECORDS SUMMARY | 2024-05-20 07:00 | XMS_ITS | Encounter Summary ---
Author Name [facility] [place] [facility] [place] Organization [facility] [place] Address [address] [place] [address] Care Team Providers Care Director Presales Name Role Phone ESTELA MAYLIN Primary Care [...] RISSA SHIRLEY Mar 04, 2012 RISSA RODRIGUEZ [id number] NORMA SHELBY PATIENT [employer] [facility] (WN) MEDICARE ADVANTAGE [facility](W NR) Jul 30, 2017 [id number] HERON,NORMAJoel PARIS PATIENT [employer] [facility] (WNR) MEDICARE ADVANTAGE [facility] (WNR) Jul 30, 2017 [id number] HERONNORMAJoel PARIS PATIENT [employer] [facility] (WNR) [facility] ORGANIZ MEDIC ARE BRAULIO Connell Jul 30, 2012 [id number] NORMA SHELBY PATIENT MEDICARE (WNR) MEDICARE (M) PART A Jul 30, 2017 PART A [id number] 50 NORMA SHELBY PATIENT MEDICARE (WNR) MEDICARE (M) PART B Jul 30, 2017 PART B [id number] 50 NORMA SHELBY PATIENT MEDICARE PART D (WNR) PRESCRIPT ION PART D Jul 30, 2017 PART D [id number] 50 NORMA SHELBY PATIENT MEDICARE PART D (WNR) MEDICARE (M) PART D Jul 30, 2017 PART D [id number] [phone] [id number] NORMA SHELBY PATIENT MEDICARE PART D (WNR) MEDICARE (M) PART D Jul 30, 2017 PART D [id number] NORMA SHELBY PATIENT MEDICARE PART D (WNR) MEDICARE (M) PART D Jul 30, 2012 PART D [id number] NORMA SHELBY PATIENT Selected Encounter This section includes the information on record at OR for the Encounter. Date/Time Encounter Type Encounter Description Reason Provider Source May 20, 2024 11:00 AM EVALUATION OF WHEEZING PULMONARY FUNCTION ICD-10-CM R06.00 Dyspnea, unspecified JULIANA ASTORGA Abi Encounter Template Text not used by OR Assessments - Encounter Diagnoses This section includes the primary and secondary diagnoses documented for the Encounter. Date/Time Primary/Secondary Diagnosis Diagnosis Name Provider Source May 20, 2024 11:53 AM PRIMARY Dyspnea, unspecified [facility] Plan of Treatment: Future Appointments (+ 6 months) and Future Tests (+/- 45 days) The Plan of Treatment section includes future care activities for the patient from all [place] treatmentfacilities. This section includes future appointments and future orders which are active, pending or scheduled. Future Appointments This section includes appointments that were scheduled to occur 6 months from the date of the Encounter, up to a maximum of 20 appointments. The data comes from all [place] treatment facilities. Appointment Date/Time Appointment Type Appointme nt Facility Name Jun 25, 2024 09:45 AM AMBULATORY - MEDICINE TAMMY CHEUNG [facility] Jul 08, 2024 01:40 PM AMBULATORY - SURGERY L[place] [facility] Sep 16, 2024 01:20 PM AMBULATORY - MEDICINE [facility] Oct 20, 2024 11:20 AM AMBULATORY - MEDICINE [facility] Oct 29, 2024 10:30 AM AMBULATORY - SURGERY CARLOSIN [facility] Nov 04, 2024 11:00 AM AMBULATORY - MEDICINE [facility] Nov 04, 2024 01:40 PM AMBULATORY - SURGERY CARLOSIN [facility] Nov 12, 2024 10:20 AM AMBULATORY - SURGERY [facility] Active, Pending, and Scheduled Orders This section includes a listing of several types of active, pending, and scheduled orders, including clinic medications orders, diagnostic test orders, procedure orders and consult orders; where the start date of the order is 45 days before the date of the Encounter or 45 days after the date of theEncounter. The data comes from all [place] treatment facilities. Test Date/Time Test Type Test Details Facility Name Apr 15, 2024 02:03 PM Laboratory - Chemi stry Order CBC/PLT [id number] BLOOD STAT WC ONCE [facility] Lab Results: +/- 30 days of [...] Type Comment May 05, 2024 02:08 PM [facility] N PANEL 1 PLASMA Specimen Type: [...] Apr 21, 2024 11:25 AM Reporting Lab: [address] [id number] Performing Lab: [address] [id number] CREATININE 2.39 mg/dL H 0.72-1.25 UREA NITROGEN [...] and tobacco- related health factors from the [place] facility where the Encounter took place. Current Smoking Status This section includes the most current smoking, or tobacco-related health factor, from the [place] facility where the Encounter took place. Date/Time Current Smoking Status Comment Facil ity December 08, 2008 06:50 PM V9 QUIT TOBACCO >7 YEARS AGO [facility] Tobacco Use History This section includes a history of the smoking, or tobacco-related health factors, that were collected on or before the date of the Encounter. The data comes from the [place] facility where the Encounter took place. Date/Time Smoking Status/Tobac co Use Comment Facility Sep 25, 2007 07:04 PM TOBACCO OFFERRED PT MEDS (PROVIDER) [facility] Sep 25, 2007 07:04 PM V9 CURRENT TOBACCO USER [facility] Sep 25, 2007 07:04 PM V9 TOBACCO OFFERED [facility] Aug 16, 2006 05:31 PM TOBACCO OFFERRED PT MEDS (PROVIDER) [facility] Aug 16, 2006 05:31 PM V9 CURRENT TOBACCO USER [facility] Aug 16, 2006 05:31 PM V9 TOBACCO OFFERED [facility] Feb 08, 2006 02:21 PM HF V9 SECOND TOBACCO DIRECTOR OF ADMISSIONS .[address] [place] [address] Sep 19, 2005 02:18 PM HF V9 CURRENT SMOKER SMOKES ABOUT 1/2 PPD [facility] Feb 07, 2005 02:38 PM HF V9 SECOND TOBACCO DIRECTOR OF ADMISSIONS [address] [place] [address] Aug 30, 2004 11:28 AM HF V9 THIRD TOBACCO DIRECTOR OF ADMISSIONS SMOKES UP TO 1 PACK EVERY COUPLE OF DAYS [facility] Mar 15, 2004 03:48 PM HF V9 CURRENT SMOKER [address] [place] [address] Sep 01, 2003 11:25 AM HF V9 SECOND TOBACCO DIRECTOR OF ADMISSIONS 10 CIGARETTES A DAY [facility] Oct 21, 2002 12:42 PM HF V9 CURRENT SMOKER 1 pack a day [facility] Encounter Notes: All associated encounter notes This section contains the clinical notes associated to the Encounter. Date/Time Encounter Note(s) Provider Source May 20, 2024 11:53 AM RESPIRATORY THERAP Y NOTE: LOCAL TITLE: PULMONARY FUNCTION TEST NOTE STANDARD TITLE: RESPIRATORY THERAPY NOTE DATE OF NOTE: MAY 20, 2024@11:53 ENTRY DATE: MAY 20, 2024@11:53:32 AUTHOR: JULIANA ASTORGA EXP COSIGNER: URGENCY: STATUS: COMPLETED Time out to ensure correct patient and procedure was performed using the following identifiers: Full SS# as stated by patient and compared to paper CPRS order. Full as stated by patient and compared to paper CPRS order. Test Performed: Spirometry pre/post bronchilator Diagnosis: Dyspnea /arleth/ JULIANA ASTORGA Respiratory Therapist Signed: 05/20/2024 11:53 JULIANA ASTORGA [facility] May 20, 2024 11:42 AM PULMONARY NOTE: LOCAL TITLE: CP PULMONARY FUNCTION TEST STANDARD TITLE: PULMONARY NOTE DATE OF NOTE: MAY 20, 2024@11:42 ENTRY DATE: MAY 20, 2024@11:42:43 AUTHOR: ZEINAB LEE EXP COSIGNER: URGENCY: STATUS: COMPLETED PROCEDURE SUMMARY CODE: Normal DATE/TIME PERFORMED: MAY 20, 2024@11:40 There is no airflow obstruction and no response to one-time inhaled beta agonist bronchodilator. Spirometry is normal. FVC and FEV1 have decreased significantly compared to prior study from 08/03/17. /arleth/ Kendrick YEHBRomaS. STAFF PHYSICIAN Signed: 05/20/2024 12:18 [facility]
--- OUTSIDE RECORDS SUMMARY | 2024-05-29 11:22 | XMS_ITS | Encounter Summary ---
Author Name [facility] [place] [facility] [place] Address [address] [place] [address] Care Team Providers Care Direct Marketing Representative Name Role Phone ESTELA MAYLIN Primary Care [...] RISSA SHIRLEY Mar 04, 2012 RISSA RODRIGUEZ [id number] HERONNORMAJoel PARIS PATIENT [employer] [facility] (WNR) MEDICARE ADVANTAGE [facility](W NR) Jul 30, 2017 [id number] [phone] HERONNORMA WELLINGTON PATIENT [employer] [facility] (WNR) MEDICARE ADVANTAGE [facility] (WNR) Jul 30, 2017 [id number] [phone] HERONNORMAJoel GODOYE PATIENT [employer] [facility] (WNR) [facility] MEDIC ARE BRAULIO Connell Jul 30, 2012 [id number] [phone] NORMA SHELBY PATIENT MEDICARE (WNR) MEDICARE (M) PART A Jul 30, 2017 PART A [id number] NORMA SHELYB PATIENT MEDICARE (WNR) MEDICARE (M) PART B Jul 30, 2017 PART B [id number] NORMA SHELBY PATIENT MEDICARE PART D (WNR) PRESCRIPT ION PART D Jul 30, 2017 PART D [id number] NORMA SHELBY PATIENT MEDICARE PART D (WNR) MEDICARE (M) PART D Jul 30, 2017 PART D [id number] [phone] NORMA SHELBY PATIENT MEDICARE PART D (WNR) MEDICARE (M) PART D Jul 30, 2017 PART D [id number] NORMA SHELBY PATIENT MEDICARE PART D (WNR) MEDICARE (M) PART D Jul 30, 2012 PART D [id number] NORMA SHELBY PATIENT Selected Encounter This section includes the information on record at [place] for the Encounter. Date/Time Encounter Type Encounter Description Reason Provider Source May 29, 2024 03:22 PM Outpatient Encounter HT NON-VIDEO MONITORING ICD-10-CM Z03.89 Encntr for obs for oth suspected diseases and cond ruled out LONA SANTOS Encounter Template Text not used by [place] Assessments - Encounter Diagnoses This section includes the primary and secondary diagnoses documented for the Encounter. Date/Time Primary/Secondary Diagnosis Diagnosis Name Provider Source May 29, 2024 04:30 PM PRIMARY Encntr for obs for oth suspected diseases and cond ruled out LONA SANTOS [facility] Plan of Treatment: Future Appointments (+ 6 months) and Future Tests (+/- 45 days) The Plan of Treatment section includes future care activities for the patient from all [place] treatmentfacilities. This section includes future appointments and future orders which are active, pending or scheduled. Future Appointments This section includes appointments that were scheduled to occur 6 months from the date of the Encounter, up to a maximum of 20 appointments. The data comes from all [place] treatment facilities. Appointment Date/Time Appointment Type Appointme nt Facility Name Jun 25, 2024 09:45 AM AMBULATORY - MEDICINE [facility] Jul 08, 2024 01:40 PM AMBULATORY - SURGERY [facility] Sep 16, 2024 01:20 PM [facility] Oct 20, 2024 11:20 AM AMBULATORY - MEDICINE [facility] Oct 29, 2024 10:30 AM [facility] Nov 04, 2024 11:00 AM AMBULATORY - MEDICINE [facility] Nov 04, 2024 01:40 PM [facility]UL[facility] SURG[facility] Nov 12, 2024 10:20 AM [facility] Active, Pending, and Scheduled Orders This section includes a listing of several types of active, pending, and scheduled orders, including clinic medications orders, diagnostic test orders, procedure orders and consult orders; where the start date of the order is 45 days before the date of the Encounter or 45 days after the date of theEncounter. The data comes from all [place] treatment facilities. Test Date/Time Test Type Test Details Facility Name Apr 15, 2024 02:03 PM Laboratory - Chemi stry Order CBC/PLT [id number] BLOOD STAT WC ONCE [facility] Lab Results: +/- 30 days of [...] Type Comment May 05, 2024 02:08 PM [facility] N PANEL 1 PLASMA Specimen [...] Apr 21, 2024 11:25 AM Reporting Lab: [address] [id number] Performing Lab: [address] [id number] CREATININE 2.39 mg/dL H 0.72-1.25 UREA NITROGEN [...] and tobacco- related health factors from the [place] facility where the Encounter took place. Current Smoking Status This section includes the most current smoking, or tobacco-related health factor, from the [place] facility where the Encounter took place. Date/Time Current Smoking Status Comment Corbin torres Apr 09, 2024 10:30 AM VA-TOBACCO FORMER USER [facility] Tobacco Use History This section includes a history of the smoking, or tobacco-related health factors, that were collected on or before the date of the Encounter. The data comes from the [place] facility where the Encounter took place. Date/Time Smoking Status/Tobacco Use Comment Kamila sarah Apr 09, 2024 10:30 AM VA-TOBACCO QUIT 15 YRS OR MORE [facility] May 08, 2023 02:30 PM VA-TOBACCO FORMER USER [facility] May 08, 2023 02:30 PM VA-TOBACCO QUIT 5 TO < 15 YRS [facility] May 26, 2022 11:00 AM VA-TOBACCO FORMER USER [facility] May 26, 2022 11:00 AM VA-TOBACCO QUIT 5 TO < 15 YRS [facility] Jun 22, 2021 10:00 AM VA-TOBACCO FORMER USER [facility] Jun 22, 2021 10:00 AM VA-TOBACCO QUIT 5 TO < 15 YRS [facility] Jul 05, 2020 11:00 AM VA-TOBACCO FORMER USER [facility] Jul 05, 2020 11:00 AM VA-TOBACCO QUIT 5 TO < 15 YRS [facility] Apr 25, 2019 02:40 PM VA-TOBACCO FORMER USER [facility] Apr 25, 2019 02:40 PM VA-TOBACCO QUIT 5 TO < 15 YRS [facility] Jun 27, 2018 09:46 AM VA-TOBACCO FORMER USER [facility] Jun 27, 2018 09:46 AM VA-TOBACCO QUIT 5 TO < 15 YRS [facility] Jul 27, 2017 09:25 AM V9 LIFETIME NON-USER OF TOBACCO [facility] Aug 22, 2016 08:58 AM V9 LIFETIME NON-USER OF TOBACCO [facility] Sep 14, 2015 09:30 AM V9 LIFETIME NON-USER OF TOBACCO [facility] Sep 03, 2014 07:39 AM V9 LIFETIME NON-USER OF TOBACCO [facility] Apr 22, 2013 09:17 AM V9 QUIT TOBACCO IN THE LAST 12 MONTHS [facility] Jun 14, 2012 02:12 PM V9 QUIT TOBACCO >1 2 MO & <7 YRS AGO [facility] Feb 07, 2011 03:23 PM V9 QUIT TOBACCO >7 YEARS AGO [facility] Jan 20, 2010 02:15 PM V9 QUIT TOBACCO >7 YEARS AGO [facility] Encounter Notes: All associated encounter notes This section contains the clinical notes associated to the Encounter. Date/Time Encounter Note(s) Provider Source May 29, 2024 04:19 PM CARE COORDINATION HOME TELEHEALTH SUMMARIZATION NOTE: LOCAL TITLE: HT MONTHLY MONITOR NOTE STANDARD TITLE: CARE COORDINATION HOME TELEHEALTH SUMMARIZATION DATE OF NOTE: MAY 29, 2024@16:19 ENTRY DATE: MAY 29, 2024@16:19:34 AUTHOR: DEDE SANTOS EXP COSIGNER: URGENCY: STATUS: COMPLETED The [facility] is enrolled in the Home Telehealth (HT) program and continues to be monitored via HT technology. The data sent by the [facility] is reviewed and analyzed by the staff, who provide ongoing case management and [facility] health education while communicating and collaborating with the health care team as appropriate. This note covers a total of 30 minutes for the month monitored. Month monitored: APR 2024 /arleth/ Dede (UZMA) BEN SANTOS RN [facility]-HT RNCC Signed: 05/29/2024 16:40 DEDE SANTOS [facility]
--- OUTSIDE RECORDS SUMMARY | 2024-06-25 05:45 | XMS_ITS | Encounter Summary ---
Author Name [facility] [place] [facility] [place] [facility] [facility] [place] Address [address] [place] [address] Care Team Providers Care Insurance Verifier Name Role Phone ESTELAMAYLIN Primary Care Provider [...] RISSA SHIRLEY Mar 04, 2012 RISSA RODRIGUEZ [id number] NORMA SHELBY PATIENT [employer] [facility] (WNR) MEDICARE ADVANTAGE [facility] (WNR) Jul 30, 2017 [id number] HERONNORMA WELLINGTON PATIENT [employer] [facility] (WNR) MEDICARE ADVANTAGE [facility](W NR) Jul 30, 2017 [id number] [phone] HERONNORMAJoel PARIS PATIENT [employer] [facility] (WNR) FORMERLY [facility] ORGANIZ MEDIC ARE BRAULIO Connell Jul 30, 2012 [id number] [phone] NORMA SHELBY PATIENT MEDICARE (WNR) MEDICARE (M) PART A Jul 30, 2017 PART A [id number] NORMA SHELBY PATIENT MEDICARE (WNR) MEDICARE (M) PART B Jul 30, 2017 PART B [id number] NORMA SHELBY PATIENT MEDICARE PART D (WNR) PRESCRIPT ION PART D Jul 30, 2017 PART D [id number] NORMA SHELBY PATIENT MEDICARE PART D (WNR) MEDICARE (M) PART D Jul 30, 2017 PART D [id number] NORMA SHELBY PATIENT MEDICARE PART D (WNR) MEDICARE (M) PART D Jul 30, 2017 PART D [id number] NORMA SHELBY PATIENT MEDICARE PART D (WNR) MEDICARE (M) PART D Jul 30, 2012 PART D [id number] NORMA SHELBY PATIENT Selected Encounter This section includes the information on record at [place] for the Encounter. Date/Time Encounter Type Encounter Description Reason Provider Source Jun 25, 2024 09:45 AM OFFICE O/P EST MOD 30 MIN CARDIOLOGY ICD-10-CM I48.0 Paroxysmal atrial fibrillation BELEN SANDERS Encounter Template Text not used by [place] Assessments - Encounter Diagnoses This section includes the primary and secondary diagnoses documented for the Encounter. Date/Time Primary/Secondary Diagnosis Diagnosis Name Provider Source Jul 07, 2024 02:29 PM PRIMARY Paroxysmal atrial fibrillation ILAN LORD [facility] Jul 07, 2024 02:29 PM SECONDARY Chronic kidney disease, stage 3 unspecified ILAN LORD [facility] Jul 07, 2024 02:29 PM SECONDARY Essential (primary) hypertension ILAN LORD [facility] Jul 07, 2024 02:29 PM SECONDARY Mixed hyperlipidemia ILAN LORD [facility] Jul 07, 2024 02:29 PM SECONDARY Type 2 diabetes mellitus w diabetic chronic kidney disease ILAN LORD [facility] Plan of Treatment: Future Appointments (+ 6 months) and Future Tests (+/- 45 days) The Plan of Treatment section includes future care activities for the patient from all [place] [facility]. This section includes future appointments and future orders which are active, pending or scheduled. Future Appointments This section includes appointments that were scheduled to occur 6 months from the date of the Encounter, up to a maximum of 20 appointments. The data comes from all [place] [facility]. Appointment Date/Time Appointment Type Appointme nt Facility Name Jul 08, 2024 01:40 PM [facility] Sep 16, 2024 01:20 PM AMBULATORY - MEDICINE [facility] Oct 20, 2024 11:20 AM AMBULATORY - MEDICINE [facility] Oct 29, 2024 10:30 AM AMBULATORY - SURGERY [facility] Nov 04, 2024 11:00 AM AMBULATORY - MEDICINE [facility] Nov 04, 2024 01:40 PM AMBULATORY - SURGERY [facility] Nov 12, 2024 10:20 AM AMBULATORY - SURGERY [facility] December 10, 2024 10:20 AM AMBULATORY - SURGERY [facility] Social History: Smoking Status (Most [...] took place. Date/Time Current Smoking Status Comment [facility] December 08, 2008 06:50 PM V9 QUIT TOBACCO >7 YEARS AGO [facility] Tobacco Use History This section includes a history of the smoking, or tobacco-related health factors, that were collected on or before the date of the Encounter. The data comes from the [place] facility where the Encounter took place. Date/Time Smoking Status/Tobac co Use Comment Facility Sep 25, 2007 07:04 PM TOBACCO OFFERRED PT MEDS (PROVIDER) [facility] Sep 25, 2007 07:04 PM V9 CURRENT TOBACCO USER [facility] Sep 25, 2007 07:04 PM V9 TOBACCO OFFERED [facility] Aug 16, 2006 05:31 PM TOBACCO OFFERRED PT MEDS (PROVIDER) [facility] Aug 16, 2006 05:31 PM V9 CURRENT TOBACCO USER [facility] Aug 16, 2006 05:31 PM V9 TOBACCO OFFERED [facility] Feb 08, 2006 02:21 PM HF V9 SECOND TOBACCO REGISTERED ASSOCIATE [address] [place] [address] Sep 19, 2005 02:18 PM HF V9 CURRENT SMOKER SMOKES ABOUT 1/2 PPD [facility] Feb 07, 2005 02:38 PM HF V9 SECOND TOBACCO REGISTERED ASSOCIATE [address] [place] [address] Aug 30, 2004 11:28 AM HF V9 THIRD TOBACCO REGISTERED ASSOCIATE SMOKES UP TO 1 PACK EVERY COUPLE OF DAYS [facility] Mar 15, 2004 03:48 PM HF V9 CURRENT SMOKER [address] [place] [address] Sep 01, 2003 11:25 AM HF V9 SECOND TOBACCO REGISTERED ASSOCIATE 10 CIGARETTES A DAY [facility] Oct 21, 2002 12:42 PM HF V9 CURRENT SMOKER 1 pack a day [facility] Encounter Notes: All associated encounter notes This section contains the clinical notes associated to the Encounter. Date/Time Encounter Note(s) Provider Source Jun 25, 2024 09:48 AM NURSING OUTPATIENT NOTE: LOCAL TITLE: [facility] INTAKE NOTE STANDARD TITLE: NURSING OUTPATIENT NOTE DATE OF NOTE: JUN 25, 2024@09:48 ENTRY DATE: JUN 25, 2024@09:48:54 AUTHOR: ANCA BONNER COSIGNER: URGENCY: STATUS: COMPLETED Reason for visit/chief complaint: Follow up B/P: 125/73 (06/25/2024 09:47) P: 70 (06/25/2024 09:47) R: 20 (06/25/2024 09:47) T: 97.8 F [36.6 C] (06/25/2024 09:47) HT: 72.0 in [182.9 cm] (05/09/2024 10:22) WT: 312.8 lb [141.88 kg] (06/25/2024 09:47) Are you having any pain or recurrent pain in the last several weeks/months? Yes Severity Scale (6) Location: Back Duration: Characteristics: Chronic (over 3 months) Pain education material offered to patient (for pain > 3) Yes Risk factors history: Hypertension Yes BP Rechecked Comments: Patient notified nitrocellulose operator available upon request for any examinations/procedures. The [...] DAY TO THIN BLOOD -CALL ANTICOAGULATION CLINIC [phone] WITH QUESTIONS OR CONCERNS Quantity: 90 for 90 days Issued: 04/10/24 Filled: 04/16/24 Expires: 04/11/25 Refills: 3 Status: ACTIVE ATORVASTATIN CALCIUM 40MG TAB Directions: TAKE ONE-HALF TABLET BY MOUTH DAILY FOR CHOLESTEROL Quantity: 45 for 90 days Issued: 05/09/24 Filled: 05/09/24 Expires: 05/10/25 Refills: 3 Status: ACTIVE CHLORTHALIDONE 25MG TAB Directions: TAKE ONE TABLET BY MOUTH DAILY FOR BLOOD PRESSURE Quantity: 90 for 90 days Issued: 05/09/24 Filled: 05/09/24 Expires: 05/10/25 Refills: 3 Status: ACTIVE FLUOXETINE HCL 20MG CAP Directions: TAKE ONE CAPSULE BY MOUTH DAILY FOR MOOD Quantity: 90 for 90 days Issued: 05/09/24 Filled: 05/09/24 Expires: 05/10/25 Refills: 3 Status: ACTIVE GABAPENTIN 300MG CAP Directions: TAKE TWO CAPSULES BY MOUTH TWICE A DAY FOR NERVE PAIN Quantity: 120 for 30 days Issued: 06/11/24 Filled: 07/03/24 Expires: 06/12/25 Refills: 4 Status: ACTIVE [id number] PENTOXIFYLLINE SA 400MG/PBO Directions: TAKE ONE TABLET BY MOUTH TWICE A DAY WITH FOOD. SWALLOW WHOLE-DO NOT CHEW, CRUSH OR CUT Quantity: 200 for 90 days Issued: 06/23/24 Filled: 06/24/24 Expires: 09/21/24 Refills: 0 Status: ACTIVE LANCET,SOFTCLIX Directions: USE LANCET AFFECTED AREA DIRECTED Quantity: 100 for 90 days Issued: 04/16/24 Filled: 04/18/24 Expires: 04/17/25 Refills: 3 Status: ACTIVE LISINOPRIL 40MG TAB Directions: TAKE ONE TABLET BY MOUTH DAILY FOR BLOOD PRESSURE/HEART Quantity: 90 for 90 days Issued: 05/09/24 Filled: 05/09/24 Expires: 05/10/25 Refills: 3 Status: ACTIVE PANTOPRAZOLE NA 40MG EC TAB Directions: TAKE ONE TABLET BY MOUTH TWICE A DAY 30 MINUTES BEFORE A MEAL FOR STOMACH, 30 MINUTES BEFORE A MEAL. TAKE ON AN EMPTY STOMACH. Quantity: 180 for 90 days Issued: 05/09/24 Filled: 05/09/24 Expires: 05/10/25 Refills: 3 Status: ACTIVE SPIRONOLACTONE 25MG TAB Directions: TAKE ONE TABLET BY MOUTH DAILY FOR BLOOD PRESSURE/HEART Quantity: 90 for 90 days Issued: 04/28/24 Filled: 05/07/24 Expires: 04/29/25 Refills: 3 Status: ACTIVE CARVEDILOL 25MG TAB Directions: TAKE ONE TABLET BY MOUTH TWICE A DAY FOR HEART/BLOOD PRESSURE Quantity: 180 for 90 days Issued: 05/20/24 Filled: 08/02/24 Expires: 05/21/25 Refills: 3 Status: ACTIVE/SUSP METFORMIN HCL 500MG TAB Directions: TAKE ONE TABLET BY MOUTH TWICE A DAY FOR DIABETES Quantity: 180 for 90 days Issued: 05/20/24 Filled: 07/28/24 Expires: 05/21/25 Refills: 3 Status: ACTIVE/SUSP No remote medications found. PENDING OUTPATIENT MEDICATONS (LOCAL/REMOTE): No local medications found. No remote medications found. ACTIVE NONVA MEDICATIONS (LOCAL): No local medications found. OUTPATIENT MEDICATIONS (LOCAL)WITHIN 90 DAYS: CARVEDILOL 25MG TAB Directions: TAKE ONE TABLET BY MOUTH TWICE A DAY FOR HEART/BLOOD PRESSURE Quantity: 180 for 90 days Issued: 05/20/24 Filled: 08/02/24 Expires: 05/21/25 Refills: 3 Status: ACTIVE/SUSP METFORMIN HCL 500MG TAB Directions: TAKE ONE TABLET BY MOUTH TWICE A DAY FOR DIABETES Quantity: 180 for 90 days Issued: 05/20/24 Filled: 07/28/24 Expires: 05/21/25 Refills: 3 Status: ACTIVE/SUSP DISCONTINUED OUTPATIENT MEDICATIONS (LOCAL) WITHIN 90 DAYS: CARVEDILOL 25MG TAB Directions: TAKE ONE TABLET BY MOUTH TWICE A DAY FOR HEART/BLOOD PRESSURE Quantity: 180 for 90 days Issued: 05/20/24 Filled: 08/02/24 Expires: 05/21/25 Refills: 3 Status: ACTIVE/SUSP METFORMIN HCL 500MG TAB Directions: TAKE ONE TABLET BY MOUTH TWICE A DAY FOR DIABETES Quantity: 180 for 90 days Issued: 05/20/24 Filled: 07/28/24 Expires: 05/21/25 Refills: 3 Status: ACTIVE/SUSP AMLODIPINE BESYLATE 10MG TAB Directions: TAKE ONE TABLET BY MOUTH DAILY FOR BLOOD PRESSURE/HEART - DO NOT DRINK GRAPEFRUIT JUICE WHILE ON THIS DRUG REPLACES NIFEDIPINE Quantity: 90 for 90 days Issued: 05/21/23 Filled: 08/26/23 Expires: 05/21/24 Refills: 2 Status: DISCONTINUED APIXABAN 5MG TAB Directions: TAKE ONE-HALF TABLET BY MOUTH TWICE A DAY TO [facility] B[facility] [phone] WITH QUESTIONS OR CONCERNS Quantity: 60 for 60 days Issued: 11/22/23 Filled: 02/26/24 Expires: 11/22/24 Refills: 5 Status: DISCONTINUED ATORVASTATIN CALCIUM 40MG TAB Directions: TAKE ONE-HALF TABLET BY MOUTH DAILY FOR CHOLESTEROL Quantity: 45 for 90 days Issued: 07/25/23 Filled: 04/17/24 Expires: 07/25/24 Refills: 0 Status: DISCONTINUED ATORVASTATIN CALCIUM 40MG TAB Directions: TAKE ONE-HALF TABLET BY MOUTH DAILY FOR CHOLESTEROL Quantity: 45 for 90 days Issued: 05/09/24 Filled: 07/16/24 Expires: 05/10/25 Refills: 3 Status: DISCONTINUED CARVEDILOL 25MG TAB Directions: TAKE ONE TABLET BY MOUTH TWICE A DAY FOR HEART/BLOOD PRESSURE Quantity: 180 for 90 days Issued: 05/13/24 Filled: 05/14/24 Expires: 08/11/24 Refills: 0 Status: DISCONTINUED CHLORTHALIDONE 25MG TAB Directions: TAKE ONE TABLET BY MOUTH DAILY FOR BLOOD PRESSURE Quantity: 60 for 60 days Issued: 02/21/24 Filled: 02/22/24 Expires: 04/21/24 Refills: 0 Status: DISCONTINUED CHLORTHALIDONE 25MG TAB Directions: TAKE ONE TABLET BY MOUTH DAILY FOR BLOOD PRESSURE Quantity: 30 for 30 days Issued: 04/21/24 Filled: 04/21/24 Expires: 05/21/24 Refills: 0 Status: DISCONTINUED CHLORTHALIDONE 25MG TAB Directions: TAKE ONE TABLET BY MOUTH DAILY FOR BLOOD PRESSURE Quantity: 90 for 90 days Issued: 04/28/24 Filled: 05/11/24 Expires: 04/29/25 Refills: 1 Status: DISCONTINUED FLUOXETINE HCL 20MG CAP Directions: TAKE ONE CAPSULE BY MOUTH DAILY FOR MOOD Quantity: 90 for 90 days Issued: 05/21/23 Filled: 01/16/24 Expires: 05/21/24 Refills: 0 Status: DISCONTINUED FLUOXETINE HCL 20MG CAP Directions: TAKE ONE CAPSULE BY MOUTH DAILY FOR MOOD Quantity: 90 for 90 days Issued: 04/21/24 Filled: 04/21/24 Expires: 04/22/25 Refills: 3 Status: DISCONTINUED FLUOXETINE HCL 20MG CAP Directions: TAKE ONE CAPSULE BY MOUTH DAILY FOR MOOD Quantity: 90 for 90 days Issued: 05/09/24 Filled: 07/10/24 Expires: 05/10/25 Refills: 3 Status: DISCONTINUED GABAPENTIN 300MG CAP Directions: TAKE TWO CAPSULES BY MOUTH TWICE A DAY FOR NERVE PAIN Quantity: 120 for 30 days Issued: 04/18/24 Filled: 04/18/24 Expires: 05/18/24 Refills: 0 Status: DISCONTINUED GABAPENTIN 300MG CAP Directions: TAKE TWO CAPSULES BY MOUTH TWICE A DAY FOR NERVE PAIN Quantity: 120 for 30 days Issued: 05/15/24 Filled: 05/16/24 Expires: 06/14/24 Refills: 0 Status: DISCONTINUED GABAPENTIN 300MG CAP [...] 02/29/24 Expires: 10/08/24 Refills: 0 Status: DISCONTINUED [id number] PENTOXIFYLLINE SA 400MG/PBO Directions: TAKE ONE TABLET BY MOUTH TWICE A DAY WITH FOOD. SWALLOW WHOLE-DO NOT CHEW, CRUSH OR CUT Quantity: 200 for 90 days Issued: 12/31/23 Filled: 12/31/23 Expires: 03/30/24 Refills: 0 Status: DISCONTINUED [id number] PENTOXIFYLLINE SA 400MG/PBO Directions: TAKE ONE TABLET BY MOUTH TWICE A DAY WITH FOOD. SWALLOW WHOLE-DO NOT CHEW, CRUSH OR CUT Quantity: 200 for 90 days Issued: 03/27/24 Filled: 03/28/24 Expires: 06/25/24 Refills: 0 Status: DISCONTINUED LISINOPRIL 40MG TAB Directions: TAKE ONE TABLET BY MOUTH DAILY FOR BLOOD PRESSURE/HEART Quantity: 90 for 90 days Issued: 05/21/23 Filled: 03/03/24 Expires: 05/21/24 Refills: 0 Status: DISCONTINUED METFORMIN HCL 500MG TAB Directions: TAKE ONE TABLET BY MOUTH TWICE A DAY FOR DIABETES Quantity: 60 for 30 days Issued: 04/04/24 Filled: 04/04/24 Expires: 05/04/24 Refills: 0 Status: DISCONTINUED METFORMIN HCL 500MG TAB Directions: TAKE ONE TABLET BY MOUTH TWICE A DAY FOR DIABETES Quantity: 180 for 90 days Issued: 05/21/23 Filled: 12/31/23 Expires: 05/21/24 Refills: 0 Status: DISCONTINUED METFORMIN HCL 500MG TAB Directions: TAKE ONE TABLET BY MOUTH TWICE A DAY FOR DIABETES Quantity: 180 for 90 days Issued: 05/09/24 Filled: 05/09/24 Expires: 08/07/24 Refills: 0 Status: DISCONTINUED METFORMIN HCL 500MG TAB Directions: TAKE ONE TABLET BY MOUTH TWICE A DAY FOR DIABETES Quantity: 180 for 90 days Issued: 05/09/24 Filled: 05/09/24 Expires: 08/07/24 Refills: 0 Status: DISCONTINUED METOPROLOL TARTRATE 50MG [...] Filled: 04/03/24 Expires: 06/30/24 Refills: 0 Status: DISCONTINUED METOPROLOL TARTRATE 50MG TAB Directions: TAKE ONE-HALF TABLET BY MOUTH TWICE A DAY FOR RAPID HEARTBEAT Quantity: 90 for 90 days Issued: 05/09/24 Filled: 06/22/24 Expires: 05/10/25 Refills: 3 Status: DISCONTINUED METOPROLOL TARTRATE 50MG TAB Directions: TAKE ONE-HALF TABLET BY MOUTH TWICE A DAY FOR RAPID HEARTBEAT Quantity: 90 for 90 days Issued: 05/09/24 Filled: 05/09/24 Expires: 05/10/25 Refills: 3 Status: DISCONTINUED PANTOPRAZOLE NA 40MG EC TAB Directions: TAKE ONE TABLET BY MOUTH TWICE A DAY 30 MINUTES BEFORE A MEAL FOR STOMACH, 30 MINUTES BEFORE A MEAL. TAKE ON AN EMPTY STOMACH. Quantity: 180 for 90 days Issued: 05/21/23 Filled: 01/14/24 Expires: 05/21/24 Refills: 0 Status: DISCONTINUED PANTOPRAZOLE NA 40MG EC TAB Directions: TAKE ONE TABLET BY MOUTH TWICE A DAY 30 MINUTES BEFORE A MEAL FOR STOMACH, 30 MINUTES BEFORE A MEAL. TAKE ON AN EMPTY STOMACH. Quantity: 180 for 90 days Issued: 04/18/24 Filled: 04/18/24 Expires: 07/17/24 Refills: 0 Status: DISCONTINUED PANTOPRAZOLE NA 40MG EC TAB Directions: TAKE ONE TABLET BY MOUTH TWICE A DAY 30 MINUTES BEFORE A MEAL FOR STOMACH, 30 MINUTES BEFORE A MEAL. TAKE ON AN EMPTY STOMACH. Quantity: 180 for 90 days Issued: 05/09/24 Filled: 07/07/24 Expires: 05/10/25 Refills: 3 Status: DISCONTINUED SPIRONOLACTONE 25MG TAB Directions: TAKE ONE TABLET BY MOUTH DAILY FOR BLOOD PRESSURE/HEART Quantity: 90 for 90 days Issued: 05/21/23 Filled: 02/17/24 Expires: 05/21/24 Refills: 0 Status: DISCONTINUED APIXABAN 5MG TAB Directions: TAKE ONE TABLET BY MOUTH TWICE A DAY TO [facility] BLO[facility] [phone] WITH QUESTIONS OR CONCERNS Quantity: 60 for 30 days Issued: 04/13/23 Filled: 04/13/23 Expires: 04/13/24 Refills: 1 Status: DISCONTINUED (EDIT) APIXABAN 5MG TAB Directions: TAKE ONE TABLET BY MOUTH TWICE A DAY TO THIN BLOOD -[facility] [phone] WITH QUESTIONS OR CONCERNS Quantity: 120 for [...] listed on CPRS medication tab outpatient section. /arleth/ ANCA BONNER Licensed Practical Nurse Signed: 06/25/2024 09:49 ANCA BONNER-CDD [facility] Jun 25, 2024 05:52 AM CARDIOLOGY NOTE: LOCAL TITLE: CARDIOLOGY CLINIC PHYSICIAN NOTE STANDARD TITLE: CARDIOLOGY NOTE DATE OF NOTE: JUN 25, 2024@05:52 ENTRY DATE: JUN 25, 2024@05:53 AUTHOR: ILAN LORD EXP COSIGNER: BELEN SANDERS URGENCY: STATUS: COMPLETED CARDIOLOGY CLINIC PHYSICIAN NOTE Has ADDENDA CARDIOLOGY CLINIC NOTE Reason for visit: Cardiology follow up Cardiovascular Problem List: 1. Paroxysmal Atrial Fibrillation 2. HTN, controlled 3. HLD, controlled 4. CKD HPI: CHELSEY SHELBY is a 78 year old MALE with ROWAN, HTN, HLD, CKD, ROWAN, paroxysmal atrial fibrillation who presents for 6 month follow up today. Patient overall reports doing well. He denies any palpitations, shortness of breath, or worsening leg swelling. Patient follows with nephrology for CKD as well. He reports they have previously discussed dialysis if kidney function worsens. ROS: Reviewed and negative except as listed above in HPI. PMHx: Active problems - Computerized Problem List is the source for the followin. HTN - Hypertension ([facility] [id number]) 2. Paroxysmal atrial fibrillation 3. Long-term current use of anticoagulant 4. Chronic Kidney Disease Stage 3 ([facility] [id number]) 5. Chronic pain 6. Long-term current use of oral hypoglycemic medication 7. Exertional dyspnea 8. Anemia 9. 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 Acquired trigger finger of left index finger 11. Diabetic neuropathy 12. Jay's Esophagus ([facility] [id number]) repeat due 01/2021 13. Adenomatous polyp of colon many TAs resected January 2018 -- repeat in 1 year (01/2019). TA/HP polyps resected December 2018 -- repeat in 3 years (12/2021). 14. Bilateral hip joint pain 15. Seborrheic dermatitis 16. Dependence on continuous positive airway pressure ventilation 17. Chronic low back pain 18. Anxiety disorder 19. Depressive disorder 20. Lumbar spondylosis with myelopathy (SNOMED CT [id number]) 21. Personal History of Venous Thrombosis and Embolism 22. Obstructive sleep apnea syndrome (SNOMED CT [id number]) 23. Obesity (SNOMED CT 671020414) 24. Mixed hyperlipidemia (SNOMED CT [id number]) 25. Benign hypertensive renal disease PSHx: Reviewed and unchanged from previous Social Hx: Reviewed and unchanged from previous Family Hx: Reviewed and unchanged from previous Medications: Active Outpatient Medications (including Supplies): Active Outpatient Medications Status 1) ACCU-CHEK GUIDE (GLUCOSE) TEST STRIP USE 1 STRIP TO ACTIVE TEST BLOOD SUGAR DIRECTED LIMIT 50 STRIPS EVERY 90 DAYS 2) APIXABAN 5MG TAB TAKE ONE-HALF TABLET BY MOUTH TWICE ACTIVE A DAY TO THIN BLOOD -CALL ANTICOAGULATION CLINIC [phone] WITH QUESTIONS OR CONCERNS 3) ATORVASTATIN CALCIUM 40MG TAB TAKE ONE-HALF TABLET BY ACTIVE MOUTH DAILY FOR CHOLESTEROL 4) CARVEDILOL 25MG TAB TAKE ONE TABLET BY MOUTH TWICE A ACTIVE (S) DAY FOR HEART/BLOOD PRESSURE 5) CHLORTHALIDONE 25MG TAB TAKE ONE TABLET BY MOUTH ACTIVE DAILY FOR BLOOD PRESSURE 6) FLUOXETINE HCL 20MG CAP TAKE ONE CAPSULE BY MOUTH ACTIVE DAILY FOR MOOD 7) GABAPENTIN 300MG CAP TAKE TWO CAPSULES BY MOUTH TWICE ACTIVE A DAY FOR NERVE PAIN 8) [id number] PENTOXIFYLLINE SA 400MG/PBO TAKE ONE ACTIVE TABLET BY MOUTH TWICE A DAY WITH FOOD. SWALLOW WHOLE-DO NOT CHEW, CRUSH OR CUT 9) LANCET,SOFTCLIX USE LANCET AFFECTED AREA DIRECTED ACTIVE 10) LISINOPRIL 40MG TAB TAKE ONE TABLET BY MOUTH DAILY ACTIVE FOR BLOOD PRESSURE/HEART 11) METFORMIN HCL 500MG TAB TAKE ONE TABLET BY MOUTH ACTIVE (S) TWICE A DAY FOR DIABETES 12) PANTOPRAZOLE NA 40MG EC TAB TAKE ONE TABLET BY MOUTH ACTIVE TWICE A DAY 30 MINUTES BEFORE A MEAL FOR STOMACH, 30 MINUTES BEFORE A MEAL. TAKE ON AN EMPTY STOMACH. 13) SPIRONOLACTONE 25MG TAB TAKE ONE TABLET BY MOUTH ACTIVE DAILY FOR BLOOD PRESSURE/HEART Allergies/Adverse Reactions: Patient has answered NKA Physical Exam: Vitals: TEMP: 97.8 F [36.6 C] (05/09/2024 10:22) PULSE:72 (05/09/2024 10:22) BP: 134/65 (05/09/2024 10:22) RESP: 18 (05/09/2024 10:22) Pulse Ox: MAY 09, 2024@10:22 -- PULSE OXIMETRY: 96 WT: 311.0 lb [141.07 kg] (05/09/2024 10:22) Gen: A&Ox3, NAD HEENT: Normocephalic/Atraumatic, MMM Neck: Supple, no JVD Pulm: Normal work of breathing, CTA bilaterally with no wheezes or crackles CV: RRR, normal S1/S2, no m/r/g Extr: Warm to touch, no LE edema Neuro: Alert and oriented, needs wheelchair to ambulate down the hallway Psych: Normal affect, answers questions appropriately Assessment/Plan: CHELSEY SHELBY is a 78 year old MALE with a past medical history as described above who presented today for cardiology follow up. Paroxysmal atrial fibrillation -holter monitor with sinus rhythm only, rate 55-89 bpm -CHADsVASc2 = 4 -patient denies any symptoms, previous ECHO 2022 with preserved EF and no signficant valvular disease -continue Eliquis 5mg BID and Metoprolol 25 mg BID Essential hypertension: - BP is well controlled, last K 5 and creatinine 2.39 from 04/2024. Per chart review this is a stable creatinine for patient over the past year. Patient follows with nephrology and has repeat lab work ordered for 07/2023. - continue lisinopril 40, amlodipine 10, aldactone 25 Hyperlipidemia, other: -TC 157, LDL 97, HDL 41 -continue atorvastatin 40 mg QHS Follow Up: RTC 6 months I spent 30 minutes, reviewing history, performing an exam and evaluation, entering clinic information in the EHR, interpreting result, counseling patient/family/caregiver, reviewing X-rays/mri/labs, ordering meds/test/procedures, referring and communicating with consulting health professionals, and care coordination. /arleth/ ILAN LORD Stone Unloader Signed: 06/25/2024 11:54 /arleth/ BELEN SANDERS CHIEF, CARDIOLOGY SECTION (111B) Cosigned: 06/27/2024 09:58 07/04/2024 ADDENDUM STATUS: COMPLETED exited clinic per MD. All medications and treatment plan was discussed with prior to exiting clinic by MD. [place] to RTC 6 months with [facility] F5 via F2F, as scheduled. Per provider order/instruction above. If this provider is not available or requires overbook please alert [facility]. Appointment letter to be mailed. /arleth/ RAJINDER MENDEZ store clerk Signed: 07/04/2024 13:37 ILAN LORD-CDD [facility]
--- OUTSIDE RECORDS SUMMARY | 2024-07-03 08:57 | XMS_ITS | Encounter Summary ---
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 Name Role Phone ESTELA MAYLIN Primary Care [...] RISSA SHIRLEY Mar 04, 2012 RISSA RODRIGUEZ [id number] NORMA SHELBY PATIENT [employer] [facility] (WNR) MEDICARE ADVANTAGE [facility] (WNR) Jul 30, 2017 [id number] NORMA SHELBY PATIENT [employer] [facility] (WNR) MEDICARE ADVANTAGE [facility](W NR) Jul 30, 2017 [id number] [id number] HERONNORMAJoel PAR[place] PATIENT [employer] [facility] (WNR) [facility] BRAULIO Connell Jul 30, 2012 [id number] NORMA SHELBY PATIENT MEDICARE (WNR) MEDICARE (M) PART A Jul 30, 2017 PART A [id number] NORMA SHELBY PATIENT MEDICARE (WNR) MEDICARE (M) PART B Jul 30, 2017 PART B [id number] NORMA SHELBY PATIENT MEDICARE PART D (WNR) PRESCRIPT ION PART D Jul 30, 2017 PART D [id number] NORMA SHELBY PATIENT MEDICARE PART D (WNR) MEDICARE (M) PART D Jul 30, 2017 PART D [id number] NORMA SHELBY PATIENT MEDICARE PART D (WNR) MEDICARE (M) PART D Jul 30, 2017 PART D [id number] [phone] NORMA SHELBY PATIENT MEDICARE PART D (WNR) MEDICARE (M) PART D Jul 30, 2012 PART D [id number] NORMA SHELBY PATIENT Selected Encounter This section includes the information on record at CT for the Encounter. Date/Time Encounter Type Encounter Description Reason Provider Source Jul 03, 2024 12:57 PM Outpatient Encounter HT PROGRAM PATIENTS TRUONG SANTOS Ana [place] Encounter Template Text not used by CT [...] 2024 01:40 PM AMBULATORY - [facility] [place] [facility] Sep 16, 2024 01:20 PM AMBULATORY - MEDICINE [facility] Oct 20, 2024 11:20 AM AMBULATORY - MEDICINE [facility] Oct 29, 2024 10:30 AM AM[facility]ULATORY - [facility] [place] [facility] Nov 04, 2024 11:00 AM AMBULATORY - MEDICINE [facility] Nov 04, 2024 01:40 PM AMBULATORY - SURGERY [facility] [facility] Nov 12, 2024 10:20 AM [facility] December 10, 2024 10:20 AM AMBULATORY - SURGERY CARLOSIN GORDON-D [facility] December 24, 2024 08:30 AM AMBULATORY - MEDICINE [facility] Social History: Smoking Status (Most current) [...] Date/Time Current Smoking Status Comment Facil ity Apr 09, 2024 10:30 AM VA-TOBACCO FORMER USER [facility] Tobacco Use History This section includes a history of the smoking, or tobacco-related health factors, that were collected on or before the date of the Encounter. The data comes from the [place] facility where the Encounter took place. Date/Time Smoking Status/Tobacco Use Comment F acility Apr 09, 2024 10:30 AM VA-TOBACCO QUIT 15 YRS OR MORE [facility] May 08, 2023 02:30 PM VA-TOBACCO FORMER USER [facility] May 08, 2023 02:30 PM VA-TOBACCO QUIT 5 TO < 15 YRS [facility] May 26, 2022 11:00 AM VA-TOBACCO FORMER USER [facility] May 26, 2022 11:00 AM VA-TOBACCO QUIT 5 TO < 15 YRS [facility] Jun 22, 2021 10:00 AM VA-TOBACCO FORMER USER [facility] Jun 22, 2021 10:00 AM VA-TOBACCO QUIT 5 TO < 15 YRS [facility] Jul 05, 2020 11:00 AM VA-TOBACCO FORMER USER [facility] Jul 05, 2020 11:00 AM VA-TOBACCO QUIT 5 TO < 15 YRS [facility] Apr 25, 2019 02:40 PM VA-TOBACCO FORMER USER [facility] Apr 25, 2019 02:40 PM VA-TOBACCO QUIT 5 TO < 15 YRS [facility] Jun 27, 2018 09:46 AM VA-TOBACCO FORMER USER [facility] Jun 27, 2018 09:46 AM VA-TOBACCO QUIT 5 TO < 15 YRS [facility] Jul 27, 2017 09:25 AM V9 LIFETIME NON-USER OF TOBACCO [facility] Aug 22, 2016 08:58 AM V9 LIFETIME NON-USER OF TOBACCO [facility] Sep 14, 2015 09:30 AM V9 LIFETIME NON-USER OF TOBACCO [facility] Sep 03, 2014 07:39 AM V9 LIFETIME NON-USER OF TOBACCO [facility] Apr 22, 2013 09:17 AM V9 QUIT TOBACCO IN THE LAST 12 MONTHS [facility] Jun 14, 2012 02:12 PM V9 QUIT TOBACCO >1 2 MO & <7 YRS AGO [facility] Feb 07, 2011 03:23 PM V9 QUIT TOBACCO >7 YEARS AGO [facility] Jan 20, 2010 02:15 PM V9 QUIT TOBACCO >7 YEARS AGO [facility]
--- OUTSIDE RECORDS SUMMARY | 2024-07-08 09:40 | XMS_ITS | Encounter Summary ---
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 Name Role Phone ESTELA MAYLIN Primary Care [...] RISSA SHIRLEY Mar 04, 2012 RISSA RODRIGUEZ [id number] HERONNORMA RICHARDSE PATIENT HUMANA [facility] (WNR) MEDICARE ADVANTAGE [facility](W NR) Jul 30, 2017 [id number] [phone] HERON,NORMA WELLINGTON PATIENT [employer] [facility] (WNR) MEDICARE ADVANTAGE [facility] (WNR) Jul 30, 2017 [id number] [phone] HERON,NORMAJoel GODOYE PATIENT [employer] [facility] (WNR) [facility] MED[facility] ARE BRAULIO Connell Jul 30, 2012 [id number] NORMA SHELBY PATIENT MEDICARE (WNR) MEDICARE (M) PART A Jul 30, 2017 PART A [id number] NORMA SHELBY PATIENT MEDICARE (WNR) MEDICARE (M) PART B Jul 30, 2017 PART B [id number] NORMA SHELBY PATIENT MEDICARE PART D (WNR) PRESCRIPT ION PART D Jul 30, 2017 PART D [id number] NORMA SHELBY PATIENT MEDICARE PART D (WNR) MEDICARE (M) PART D Jul 30, 2017 PART D [id number] NORMA SHELBY PATIENT MEDICARE PART D (WNR) MEDICARE (M) PART D Jul 30, 2017 PART D [id number] NORMA SHELBY PATIENT MEDICARE PART D (WNR) MEDICARE (M) PART D Jul 30, 2012 PART D [id number] NORMA SHELBY PATIENT Selected Encounter This section includes the information on record at DC for the Encounter. Date/Time Encounter Type Encounter Description Reason Provider Source Jul 08, 2024 01:40 PM OFFICE O/P EST LOW 20 MIN PODIATRY ICD-10-CM E11.21 Type 2 diabetes mellitus with diabetic nephropathy DANIKA COELHO [facility] Encounter Template Text not used by DC Assessments - Encounter Diagnoses This section includes the primary and secondary diagnoses documented for the Encounter. Date/Time Primary/Secondary Diagnosis Diagnosis Name Provider Source Jul 08, 2024 02:02 PM PRIMARY Type 2 diabetes mellitus with diabetic nephropathy DANIKA COELHO [facility] Jul 08, 2024 02:02 PM SECONDARY Tinea unguium DANIKA COELHO [facility] Plan of Treatment: Future Appointments (+ 6 months) and Future Tests (+/- 45 days) The Plan of Treatment section includes future care activities for the patient from all [place] treatmentfacilities. This section includes future appointments and future orders which are active, pending or scheduled. Future Appointments This section includes appointments that were scheduled to occur 6 months from the date of the Encounter, up to a maximum of 20 appointments. The data comes from all [place] treatment facilities. Appointment Date/Time Appointment Type Appointme nt Facility Name Sep 16, 2024 01:20 PM AMBULATORY - [facility] Oct 20, 2024 11:20 AM [facility] Oct 29, 2024 10:30 AM [facility]ORY - [facility] [place] [facility] Nov 04, 2024 11:00 AM AM[facility]ORY - [facility] Nov 04, 2024 01:40 PM AM[facility]ORY - [facility]ERY [place] [facility] Nov 12, 2024 10:20 AM [facility] [place] [facility] December 10, 2024 10:20 AM [facility] December 24, 2024 08:30 AM [facility] Social History: Smoking Status (Most current) and Tobacco Use (All prior to encounter date) This section includes the most current, and the historical, smoking and tobacco- related health factors from the [place] facility where the Encounter took place. Current Smoking Status This section includes the most current smoking, or tobacco-related health factor, from the [place] facility where the Encounter took place. Date/Time Current Smoking Status Comment Corbin [email or web address] Apr 09, 2024 10:30 AM VA-TOBACCO FORMER USER [facility] Tobacco Use History This section includes a history of the smoking, or tobacco-related health factors, that were collected on or before the date of the Encounter. The data comes from the [place] facility where the Encounter took place. Date/Time Smoking Status/Tobacco Use Comment F [email or web address] Apr 09, 2024 10:30 AM VA-TOBACCO QUIT 15 [place]RS [place] MORE [facility] >7 YEARS AGO [facility] Encounter Notes: All associated encounter notes This section contains the clinical notes associated to the Encounter. Date/Time Encounter Note(s) Provider Source Jul 08, 2024 01:51 PM PODIATRY ATTENDING NOTE: LOCAL TITLE: PODIATRY ATTENDING NOTE STANDARD TITLE: PODIATRY ATTENDING NOTE DATE OF NOTE: JUL 08, 2024@13:51 ENTRY DATE: JUL 08, 2024@13:51:38 AUTHOR: JAMARI COELHO EXP COSIGNER: URGENCY: STATUS: COMPLETED SOAP Note SUBJECTIVE: The patient is a 78 year old MALE. Chief Complaint: DM2/neuropathy patient is here for at risk foot care and foot exam. Past Medical History: Active problems - Computerized Problem List is the source for the followin. HTN - Hypertension (SCT [id number]) 2. Paroxysmal atrial fibrillation 3. Long-term current use of anticoagulant 4. Chronic Kidney Disease Stage 3 (SCT 476320227) 5. Chronic pain 6. Long-term current use of oral hypoglycemic medication 7. Exertional dyspnea 8. Anemia 9. 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 Acquired trigger finger of left index finger 11. Diabetic neuropathy 12. Jay's Esophagus (SCT 836036818) repeat due 01/2021 13. Adenomatous polyp of [...] 20. Lumbar spondylosis with myelopathy (SNOMED CT 58036457) 21. Personal History of Venous Thrombosis and Embolism 22. Obstructive sleep apnea syndrome (SNOMED CT 07195328) 23. Obesity (SNOMED CT 523741290) 24. Mixed hyperlipidemia (SNOMED CT 662269259) 25. Benign hypertensive renal disease ALLERGIES: Patient has answered NKA Food allergies: None known VITALS: SVS - Vital Signs Selected Measurement DT BP TEMP RESP PULSE POx F(C) (L/MIN)(%) 06/25/2024 09:47 125/73 97.8(36.6) 20 70 93 Measurement DT WEIGHT LB(KG)[BMI] 06/25/2024 09:47 312.8(141.88)[43*] FOOT RISK LEVEL: MEDICATION RECONCILIATION: Reviewed current medications with patient/significant other, patient/significant other reports taking ALL VA, Non VA & OTC medications as listed on CPRS medication tab outpatient section. Yes *Medication changes reviewed, patient/significant other verbalized understanding and provided information on new medication. Yes *Explained to the patient the importance of keeping providers updated on medication changes and to carrying an updated list of medication at all times in case of an emergency situation. Yes OBJECTIVE: PACT FOOT EXAM A foot risk level was completed. The following risk level was identified for this patient: ===== +POD RISK SCORE+ --LEVEL 3 - (HIGH RISK) Sensory loss (per monofilament) and diminished circulation and may have + Foot deformity Or any of the following by itself: + History of prior ulcer, + Osteomyelitis + History of prior amputation + Severe PVD + Charcot's joint disease with foot deformity + End Stage Renal Disease -POD RISK SCORE- Patient currently being followed by Podiatry or other foot care provider. LEVEL 3 FOOT EDUCATION: 1. Advised patient that extra depth footwear with soft molded inserts and braces may be required. 2. Advised patient not to walk barefoot. Instructed the patient to pay close attention to the style and fit of shoes. 3. Explained the importance of daily foot checks. Explained that loss of sensation leads to callouses. Callouses break down, which result in ulcers that may lead to gangrene and amputation. 4. Stressed the importance of daily foot hygiene. Warm (not hot) bathing of the feet, complete drying and thorough inspection for changes in the condition of the skin constitute daily foot care. Demonstrated how to do a thorough foot check. 5. Emphasized the use of clean, non-restrictive socks/stockings and well fitting shoes. 6. Stressed the importance of immediate follow-up of any foot injuries or ulcers. Explained that he/she should be non-weight bearing whenever there are lesions on the foot, to prevent cellular damage. Level of Understanding: Good Patient/Caregiver having difficulty examining feet No Patient/caregiver has difficulty cleansing feet No Patient walks barefoot Rarely Instructed on the importance of not walking barefoot FOOT RISK LEVEL: 3 ROS: pertinent to chief complaint & relative to above medical history. Psych: AAOX3,NAD Lower extremity physical exam: DERM EVAL: NAILS: Long, Thick, Discolored, Brittle, Crumbly, Subungal debris x 9. SKIN: Dry, pink, cool, atrophic without pedal hair growth bilateral. 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 Lower Extremity Motor Function: 5/5 all lower extremity muscle groups bilat labs: Collection time: May 08, 2023@13:48 IMPRESSION: DM II neuropathy Onychomycosis x 9 Bunions bilateral, asymptomatic Hammertoes bilateral, asymptomatic. PLAN: Discussed with patient the clinical findings, diagnosis and treatment plan on this clinic visit. Proper diabetic foot care discussed (avoid barefoot, inspect feet daily, clean and dry between toes, maintain good blood sugar control, look inside shoes/sweep hand inside all the way to the toes before donning them, wear clean socks daily, etc). I reviewed latest labs in regards to pt's healing potential / overall health status. Aseptic debridement of the nails x 9 of lengh/girth/thickness via manual & electric instrumentation down to nail beds without skin compromise. This treament also consisted of an extensive consultation of the condition and the possible alternative to this mode of treatment. Continue therapeutic shoes in this at-risk pt to accommodate pedal deformities and reduce the risk of skin breakdown that can lead to infection, amputation, etc. Continue diabetic socks. He defers from replacements. Rx for a sock dolly. He can't reach his feet to put on his shoes. RTC: 4 mos. [facility] is to call with any questions or concerns. /arleth/ JAMARI COELHO PODIATRY ATTENDING Signed: 07/08/2024 14:02 JAMARI COELHO [facility] Jul 08, 2024 01:50 PM SURGERY NURSING NOTE: LOCAL TITLE: SURGERY CLINIC INTAKE NOTE STANDARD TITLE: SURGERY NURSING NOTE DATE OF NOTE: JUL 08, 2024@13:50 ENTRY DATE: JUL 08, 2024@13:50:56 AUTHOR: ROQUE MCGUIRE COSIGNER: URGENCY: STATUS: COMPLETED The patient was given a list of his/her medications, instructed to review and discuss any changes or problems with their provider. Patient advised to carry a list of current medications and any allergies with them in the event of emergency situations. Allergies: local and remote Patient has answered NKA No Remote Allergy/ADR Data available for this patient Medication Reconciliation MRR1 - Med Reconciliation INCLUDED IN THIS LIST: Alphabetical list of active outpatient prescriptions dispensed from this DC (local) and dispensed from another DC or [facility] facility (remote) as well as inpatient orders (local pending and active), local clinic medications, locally documented non-VA medications, and local prescriptions that have or been discontinued in the past 90 days. Non-VA Meds Last Documented On: May 08, 2019 NOTE The display of VA prescriptions dispensed from another DC or [facility]D facility (remote) is limited to active outpatient prescription entries matched to National Drug File at the originating site and may not include some items such as investigational drugs, compounds, etc. NOT INCLUDED IN THIS LIST: Medications self-entered by the patient into personal health records (i.e. dMetrics) are NOT included in this list. Non-VA medications documented outside this DC, remote inpatient orders (regardless of status) and remote clinic medications are NOT included in this list. The patient and provider must always discuss medications the patient is taking, regardless of where the medication was dispensed or obtained. OUTPT APIXABAN 5MG TAB (Status = Discontinued) TAKE ONE-HALF TABLET BY MOUTH TWICE A DAY TO THIN BLOOD -CALL [facility]TICO[facility]ULATION CLINIC [phone] WITH QUESTIONS OR CONCERNS Rx# [id number] Last Released: 02/28/24 Qty/Days Supply: 60/60 Rx Expiration Date: 11/22/24 Refills Remainin Indication: TO THIN BLOOD OUTPT APIXABAN 5MG TAB (Status = Active) TAKE ONE-HALF TABLET BY MOUTH TWICE A DAY TO THIN BLOOD -CALL ANTICOAGULATION CLINIC [phone] WITH QUESTIONS OR CONCERNS Rx# [id number] Last Released: 04/14/24 Qty/Days Supply: 90/90 Rx Expiration Date: 04/11/25 Refills Remainin Indication: TO THIN BLOOD OUTPT ATORVASTATIN CALCIUM 40MG TAB (Status = Discontinued) TAKE ONE-HALF TABLET BY MOUTH DAILY FOR CHOLESTEROL Rx# [id number] Last Released: 04/03/24 Qty/Days Supply: 4590 Rx Expiration Date: 07/25/24 Refills Remainin OUTPT ATORVASTATIN CALCIUM 40MG TAB (Status = Discontinued) TAKE ONE-HALF TABLET BY MOUTH DAILY FOR CHOLESTEROL Rx# [id number] Last Released: Qt/Days Supply: 45 Rx Expiration Date: 05/10/25 Refills Remainin OUTPT ATORVASTATIN CALCIUM 40MG TAB (Status = Active) TAKE ONE-HALF TABLET BY MOUTH DAILY FOR CHOLESTEROL Rx# [id number] Last Released: 05/09/24 Qty/Days Supply: 45 Rx Expiration Date: 05/10/25 Refills Remainin OUTPT CARVEDILOL 25MG TAB (Status = Discontinued) TAKE ONE TABLET BY MOUTH TWICE A DAY FOR HEART/BLOOD PRESSURE Rx# [id number] Last Released: 05/14/24 Qty/Days Supply: 180 Rx Expiration Date: 08/11/24 Refills Remainin Indication: FOR HEART/BLOOD PRESSURE OUTPT CARVEDILOL 25MG TAB (Status = Active/Suspended) TAKE ONE TABLET BY MOUTH TWICE A DAY FOR HEART/BLOOD PRESSURE Rx# [id number] Last Released: Qt/Days Supply: 18090 Rx Expiration Date: 05/21/25 Refills Remainin Indication: FOR HEART/BLOOD PRESSURE OUTPT CHLORTHALIDONE 25MG TAB (Status = Discontinued) TAKE ONE TABLET BY MOUTH DAILY FOR BLOOD PRESSURE Rx# [id number] Last Released: 02/26/24 Qty/Days Supply: 60/60 Rx Expiration Date: 04/21/24 Refills Remainin Indication: FOR BLOOD PRESSURE OUTPT CHLORTHALIDONE 25MG TAB (Status = Discontinued) TAKE ONE TABLET BY MOUTH DAILY FOR BLOOD PRESSURE Rx# [id number] Last Released: 04/24/24 Qty/Days Supply: Rx Expiration Date: 05/21/24 Refills Remainin Indication: FOR BLOOD PRESSURE OUTPT CHLORTHALIDONE 25MG TAB (Status = Discontinued) TAKE ONE TABLET BY MOUTH DAILY FOR BLOOD PRESSURE Rx# [id number] Last Released: 05/01/24 Qty/Days Supply: 90 Rx Expiration Date: 04/29/25 Refills Remainin Indication: FOR BLOOD PRESSURE OUTPT CHLORTHALIDONE 25MG TAB (Status = Active) TAKE ONE TABLET BY MOUTH DAILY FOR BLOOD PRESSURE Rx# [id number] Last Released: 05/09/24 Qty/Days Supply: 90 Rx Expiration Date: 05/10/25 Refills Remainin Indication: FOR BLOOD PRESSURE OUTPT FLUOXETINE HCL 20MG CAP (Status = Discontinued) TAKE ONE CAPSULE BY MOUTH DAILY FOR MOOD Rx# [id number] Last Released: 01/18/24 Qty/Days Supply: 90 Rx Expiration Date: 05/21/24 Refills Remainin OUTPT FLUOXETINE HCL 20MG CAP (Status = Discontinued) TAKE ONE CAPSULE BY MOUTH DAILY FOR MOOD Rx# [id number] Last Released: 04/22/24 Qty/Days Supply: 90 Rx Expiration Date: 04/22/25 Refills Remainin OUTPT FLUOXETINE HCL 20MG CAP (Status = Discontinued) TAKE ONE CAPSULE BY MOUTH DAILY FOR MOOD Rx# [id number] Last Released: Qty/Days Supply: 90 Rx Expiration Date: 05/10/25 Refills Remainin OUTPT FLUOXETINE HCL 20MG CAP (Status = Active) TAKE ONE CAPSULE BY MOUTH DAILY FOR MOOD Rx# [id number] Last Released: 05/09/24 Qty/Days Supply: 90 Rx Expiration Date: 05/10/25 Refills Remainin OUTPT GABAPENTIN 300MG CAP (Status = Discontinued) TAKE TWO CAPSULES BY MOUTH TWICE A DAY FOR NERVE PAIN Rx# [id number] Last Released: 03/06/24 Qty/Days Supply: 120/30 Rx Expiration Date: 10/08/24 Refills Remainin Indication: FOR NERVE PAIN OUTPT GABAPENTIN 300MG CAP (Status = Discontinued) TAKE TWO CAPSULES BY MOUTH TWICE A DAY FOR NERVE PAIN Rx# [id number] Last Released: 04/18/24 Qty/Days Supply: 120/30 Rx Expiration Date: 05/18/24 Refills Remainin Indication: FOR NERVE PAIN OUTPT GABAPENTIN 300MG CAP (Status = Discontinued) TAKE TWO CAPSULES BY MOUTH TWICE A DAY FOR NERVE PAIN Rx# [id number] Last Released: 05/20/24 Qty/Days Supply: 120/30 Rx Expiration Date: 06/14/24 Refills Remainin Indication: FOR NERVE PAIN OUTPT GABAPENTIN 300MG CAP (Status = Active) TAKE TWO CAPSULES BY MOUTH TWICE A DAY FOR NERVE PAIN Rx# [id number] Last Released: 06/30/24 Qty/Days Supply: 120/30 Rx Expiration Date: 06/12/25 Refills Remainin Indication: FOR NERVE PAIN OUTPT [id number] PENTOXIFYLLINE SA 400MG/PBO (Status = Discontinued) TAKE ONE TABLET BY MOUTH TWICE A DAY WITH FOOD. SWALLOW WHOLE-DO NOT CHEW, CRUSH OR CUT Rx# [id number] Last Released: 03/31/24 Qty/Days Supply: 200/90 Rx Expiration Date: 06/25/24 Refills Remainin OUTPT [id number] PENTOXIFYLLINE SA 400MG/PBO (Status = Active) TAKE ONE TABLET BY MOUTH TWICE A DAY WITH FOOD. SWALLOW WHOLE-DO NOT CHEW, CRUSH OR CUT Rx# [id number] Last Released: 06/24/24 Qty/Days Supply: 200/90 Rx Expiration Date: 09/21/24 Refills Remainin OUTPT LISINOPRIL 40MG TAB (Status = Discontinued) TAKE ONE TABLET BY MOUTH DAILY FOR BLOOD PRESSURE/HEART Rx# [id number] Last Released: 03/05/24 Qty/Days Supply: 90/90 Rx Expiration Date: 05/21/24 Refills Remainin OUTPT LISINOPRIL 40MG TAB (Status = Active) TAKE ONE TABLET BY MOUTH DAILY FOR BLOOD PRESSURE/HEART Rx# [id number] Last Released: 05/09/24 Qty/Days Supply: 90/90 Rx Expiration Date: 05/10/25 Refills Remainin OUTPT METFORMIN HCL 500MG TAB (Status = Discontinued) TAKE ONE TABLET BY MOUTH TWICE A DAY FOR DIABETES Rx# [id number] Last Released: 04/07/24 Qty/Days Supply: 60/30 Rx Expiration Date: 05/04/24 Refills Remainin Indication: FOR BLOOD SUGAR OUTPT METFORMIN HCL 500MG TAB (Status = Discontinued) TAKE ONE TABLET BY MOUTH TWICE A DAY FOR DIABETES Rx# [id number] Last Released: Qty/Days Supply: 180/90 Rx Expiration Date: 08/07/24 Refills Remainin Indication: FOR BLOOD SUGAR OUTPT METFORMIN HCL 500MG TAB (Status = Discontinued) TAKE ONE TABLET BY MOUTH TWICE A DAY FOR DIABETES Rx# [id number] Last Released: 05/09/24 Qty/Days Supply: 180/ Rx Expiration Date: 08/07/24 Refills Remainin Indication: FOR BLOOD SUGAR OUTPT METFORMIN HCL 500MG TAB (Status = Active/Suspended) TAKE ONE TABLET BY MOUTH TWICE A DAY FOR DIABETES Rx# [id number] Last Released: Qt/Days Supply: 180 Rx Expiration Date: 05/21/25 Refills Remainin Indication: FOR BLOOD SUGAR OUTPT METOPROLOL TARTRATE 50MG TAB (Status = Discontinued) TAKE ONE-HALF TABLET BY MOUTH TWICE A DAY FOR RAPID HEARTBEAT Rx# [id number] Last Released: 04/07/24 Qty/Days Supply: 90 Rx Expiration Date: 06/30/24 Refills Remainin Indication: FOR RAPID HEARTBEAT OUTPT METOPROLOL TARTRATE 50MG TAB (Status = Discontinued) TAKE ONE-HALF TABLET BY MOUTH TWICE A DAY FOR RAPID HEARTBEAT Rx# [id number] Last Released: Qt Supply: 90 Rx Expiration Date: 05/10/25 Refills Remainin Indication: FOR RAPID HEARTBEAT OUTPT METOPROLOL TARTRATE 50MG TAB (Status = Discontinued) TAKE ONE-HALF TABLET BY MOUTH TWICE A DAY FOR RAPID HEARTBEAT Rx# [id number] Last Released: 05/09/24 Qty/Days Supply: 90/90 Rx Expiration Date: 05/10/25 Refills Remainin Indication: FOR RAPID HEARTBEAT OUTPT PANTOPRAZOLE NA 40MG EC TAB (Status = Discontinued) TAKE ONE TABLET BY MOUTH TWICE A DAY 30 MINUTES BEFORE A MEAL FOR STOMACH, 30 MINUTES BEFORE A MEAL. TAKE ON AN EMPTY STOMACH. Rx# [id number] Last Released: 01/16/24 Qty/Days Supply: 180/ Rx Expiration Date: 05/21/24 Refills Remainin OUTPT PANTOPRAZOLE NA 40MG EC TAB (Status = Discontinued) TAKE ONE TABLET BY MOUTH TWICE A DAY 30 MINUTES BEFORE A MEAL FOR STOMACH, 30 MINUTES BEFORE A MEAL. TAKE ON AN EMPTY STOMACH. Rx# [id number] Last Released: 04/18/24 Qty/Days Supply: 180/ Rx Expiration Date: 07/17/24 Refills Remainin OUTPT PANTOPRAZOLE NA 40MG EC TAB (Status = Discontinued) TAKE ONE TABLET BY MOUTH TWICE A DAY 30 MINUTES BEFORE A MEAL FOR STOMACH, 30 MINUTES BEFORE A MEAL. TAKE ON AN EMPTY STOMACH. Rx# [id number] Last Released: QtDays Supply: 180/90 Rx Expiration Date: 05/10/25 Refills Remainin OUTPT PANTOPRAZOLE NA 40MG EC TAB (Status = Active) TAKE ONE TABLET BY MOUTH TWICE A DAY 30 MINUTES BEFORE A MEAL FOR STOMACH, 30 MINUTES BEFORE A MEAL. TAKE ON AN EMPTY STOMACH. Rx# [id number] Last Released: 05/09/24 Qty/Days Supply: 180/90 Rx Expiration Date: 05/10/25 Refills Remainin OUTPT SPIRONOLACTONE 25MG TAB (Status = Discontinued) TAKE ONE TABLET BY MOUTH DAILY FOR BLOOD PRESSURE/HEART Rx# [id number] Last Released: 02/08/24 Qty/Days Supply: 90 Rx Expiration Date: 05/21/24 Refills Remainin OUTPT SPIRONOLACTONE 25MG TAB (Status = Active) TAKE ONE TABLET BY MOUTH DAILY FOR BLOOD PRESSURE/HEART Rx# [id number] Last Released: 05/01/24 Qty/Days Supply: 90 Rx Expiration Date: 04/29/25 Refills Remainin SUPPLIES OUTPT ACCU-CHEK GUIDE (GLUCOSE) TEST STRIP (Status = Active) USE 1 STRIP TO TEST BLOOD SUGAR DIRECTED LIMIT 50 STRIPS EVERY 90 DAYS Rx# [id number] Last Released: 04/18/24 Qty/Days Supply: 50 Rx Expiration Date: 04/17/25 Refills Remainin OUTPT LANCET,SOFTCLIX (Status = Active) USE LANCET AFFECTED AREA DIRECTED Rx# [id number] Last Released: 04/18/24 Qty/Days Supply: 100/90 Rx Expiration Date: 04/17/25 Refills Remainin /es/ ROQUE MCGUIRE CNA Ancillary Armor Senior Sergeant Signed: 07/08/2024 13:51 ROQUE MCGUIRE [facility]
--- OUTSIDE RECORDS SUMMARY | 2024-09-16 09:20 | XMS_ITS | Encounter Summary ---
Author Name [facility] [place] [facility] [place] Address [address] [place] [address] Care Team Providers Care Records Clerk Name Role Phone ESTELAMAYLIN Primary Care Provider [...] RISSA SHIRLEY Mar 04, 2012 RISSA RODRIGUEZ [id number] NORMA SHELBY PATIENT [employer] [facility] (WNR) MEDICARE ADVANTAGE [facility](W NR) Jul 30, 2017 [id number] HERON,NORMA WELLINGTON PATIENT [employer] [facility] (WNR) MEDICARE ADVANTAGE [facility] (WNR) Jul 30, 2017 [id number] HERONNORMAJeol PARIS PATIENT [employer] [facility] (WNR) [facility] ORGANIZ MEDIC ARE BRAULIO Connell Jul 30, 2012 [id number] [phone] NORMA SHELBY PATIENT MEDICARE (WNR) MEDICARE (M) PART A Jul 30, 2017 PART A [id number] NORMA SHELBY PATIENT MEDICARE (WNR) MEDICARE (M) PART B Jul 30, 2017 PART B [id number] NORMA SHELBY PATIENT MEDICARE PART D (WNR) PRESCRIPT ION PART D Jul 30, 2017 PART D [id number] NORMA SEHLBY PATIENT MEDICARE PART D (WNR) MEDICARE (M) PART D Jul 30, 2017 PART D [id number] NORMA SHELBY PATIENT MEDICARE PART D (WNR) MEDICARE (M) PART D Jul 30, 2017 PART D [id number] NORMA SHELBY PATIENT MEDICARE PART D (WNR) MEDICARE (M) PART D Jul 30, 2012 PART D [id number] NORMA SHELBY PATIENT Selected Encounter This section includes the information on record at [place] for the Encounter. Date/Time Encounter Type Encounter Description Reason Provider Source Sep 16, 2024 01:20 PM OFFICE O/P EST MOD 30 MIN RENAL/NEPHROL(EXC EPT DIALYSIS) ICD-10-CM N18.30 Chronic kidney disease, stage 3 unspecified JOSR GORDILLO Abi Encounter Template Text not used by [place] Assessments - Encounter Diagnoses This section includes the primary and secondary diagnoses documented for the Encounter. 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 This section includes future appointments and future orders which are active, pending or scheduled. Future Appointments This section includes appointments that were scheduled to occur 6 months from the date of the Encounter, up to a maximum of 20 appointments. The data comes from all [place] treatment facilities. Appointment Date/Time Appointment Type Appointme nt Facility Name Oct 20, 2024 11:20 AM [facility] Oct 29, 2024 10:30 AM [facility] Nov 04, [facility] 11:00 [facility] Nov 04, 2024 01:40 PM [facility] Nov 12, 2024 10:20 AM [facility] December 10, 2024 10:20 AM [facility] December 24, 2024 08:30 AM [facility] Jan 28, 2025 01:30 PM AMBULATORY - REHAB [facility] Feb 04, 2025 09:00 AM AM[facility] - [place]GERY [place] [facility] Mar 16, 2025 11:30 AM AM[facility]UL[facility]ORY - NONE [place] Lab Results: +/- 30 days of the [...] Unit Interpretation Reference Range Specimen Type Comment Sep 16, 2024 01:19 [facility] CREATININE URINE Specimen Type: URINE No comment entered. Ordering Provider: JOSR GORDILLO Report Released Date/Time: Aug 11, 2024 07:11 PM Reporting Lab: [address] [address] Performing Lab: [address] [address] CREATININE 108.2 mg/dL Sep 16, 2024 01:19 PM [facility] TOTAL PROTEIN URINE Specimen Type : URINE No comment entered. Ordering Provider: JOSR GORDILLO Report Released Date/Time: Aug 11, 2024 07:11 PM Reporting Lab: [address] [address] Performing Lab: [place] [id number] TOTAL PROTEIN 14 mg/dL 0-14 Sep 16, 2024 01:19 PM [facility] URINALYSIS URINE Specimen Type : URINE Comment: Microscopic not indicated Ordering Provider: JOSR GORDILLO Report Released Date/Time: Aug 11, 2024 07:11 PM Reporting Lab: [place] [id number] Performing Lab: [place] [id number] URINE COLOR Light Yellow Colorless-Yello w APPEARANCE Clear Clear UROBILINOGEN Normal mg/dL Normal URINE BLOOD Negative Negative URINE BILIRUBIN Negative Negative URINE KETONES Negative mg/dL Negative URINE PROTEIN Negative mg/dL Negative-Tr mauro URINE PH 5.0 4.5-8.0 URINE NITRITE Negative Negative URINE LEUKOCYTE EST Negative Negative SPECIFIC GRAVITY 1.016 1.005-1.030 URINE GLUCOSE Negative mg/dL Negative Sep 16, 2024 01:08 PM [facility] CBC/PLT BLOOD Specimen Type: BLOOD No comment entered. Ordering Provider: JOSR GORDILLO Report Released Date/Time: Aug 11, 2024 07:11 PM Reporting Lab: [address] [address] Performing Lab: [place] [id number] WBC 13.3 10*3/uL H 5.0-10.0 RBC 4.58 10*6/uL L 4.6-6.2 HGB 13.1 g/dL L 14.0-18.0 HCT 41.8 L 42.0-52.0 MCV 91.3 fL 80.0-94.0 MCH 28.6 pg 27.0-31.0 MCHC 31.3 g/dL L 32.0-36.0 PLT 233 10*3/uL 150-450 MPV 10.1 fL 9.0-13.1 RDW 13.4 11.0-16.0 NRBC 0.0 0.0-0.0 Sep 16, 2024 01:08 PM [facility] PANEL 4 PLASMA Specimen Type: PLASM A [...] decrease <15 G5 Kidney failure Ordering Provider: JOSR GORDILLO Report Released Date/Time: Aug 11, 2024 07:11 PM Reporting [facility]: [facility] [address] [facility] [address] Performing Lab: [facility] [address] [facility] [address] CREATININE 2.27 mg/dL H 0.72-1.25 UREA NITROGEN 42 mg/dL H 9-25 GLUCOSE 142 mg/dL H 74-100 SODIUM 145 mmol/L 136-145 POTASSIUM 5.0 mmol/L 3.5-5.1 CHLORIDE 111 mmol/L H 98-107 CO2 22 mmol/L 22-29 CALCIUM 10.1 mg/dL 8.4-10.2 PHOSPHORUS 3.5 mg/dL 2.3-4.7 ALBUMIN 4.1 g/dL 3.5-5.2 ANION GAP 12 meq/L 3-19 eGFR (CKD-EPI) 28 Vital Signs: All taken on the encounter date This section contains inpatient and outpatient Vital Signs collected on the date of the Encounter. Date/Time Temperature Pulse Blood Pressure Respiratory Rate SP02 Pain Height Weight Body Mass Index Source Sep 16, 2024 01:30 PM 97.5 143 112/75 95 6 317.2 43 [facility] Social History: Smoking Status (Most current) and [...] PM V9 QUIT TOBACCO >7 YEARS AGO [facility] Tobacco Use History This section includes a history of the smoking, or tobacco-related health factors, that were collected on or before the date of the Encounter. The data comes from the [place] facility where the Encounter took place. Date/Time Smoking Status/Tobac co Use Comment Facility Sep 25, 2007 07:04 PM TOBACCO OFFERRED PT MEDS (PROVIDER) [facility] Sep 25, 2007 07:04 PM V9 CURRENT TOBACCO USER [facility] Sep 25, 2007 07:04 PM V9 TOBACCO OFFERED [facility] Aug 16, 2006 05:31 PM TOBACCO OFFERRED PT MEDS (PROVIDER) [facility] Aug 16, 2006 05:31 PM V9 CURRENT TOBACCO USER [facility] Aug 16, 2006 05:31 PM V9 TOBACCO OFFERED [facility] Feb 08, 2006 02:21 PM HF V9 SECOND TOBACCO [employer] [address] [place] [address] Sep 19, 2005 02:18 PM HF V9 CURRENT SMOKER SMOKES ABOUT 1/2 PPD [facility] Feb 07, 2005 02:38 PM HF V9 SECOND TOBACCO S[employer]IOR [employer] SEC[employer]ITY [employer] [address] [place] [address] Aug 30, 2004 11:28 AM 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 Date/Time Encounter Note(s) Provider Source Sep 16, 2024 01:41 PM NEPHROLOGY PHYSICI AN NOTE: LOCAL TITLE: RENAL CLINIC PHYSICIAN NOTE STANDARD TITLE: NEPHROLOGY PHYSICIAN NOTE DATE OF NOTE: SEP 16, 2024@13:41 ENTRY DATE: SEP 16, 2024@13:43:01 AUTHOR: MONY HIRSCH EXP COSIGNER: JOSR GORDILLO URGENCY: STATUS: COMPLETED RENAL CLINIC PHYSICIAN NOTE Has ADDENDA ( ) Nursing Intake Note Reviewed Pain: 6 (09/16/2024 13:30) Reason for Visit: This is a pleasant 78 year old MALE with T2DM, ROWAN on CPAP, HTN, HLD and Afib on apixiban who presents to nephrology clinic for follow up of CKD. Last seen in Apr. Prior to this visit he was hospitalized for diarrhea and had WILLIS with Cr peaking at 4.5. New baseline Cr since this is in the low 2's. Since last visit in Apr no major illnesses or hospitalizations. Takes BP at home and is normal. No urinary complaints. Complains of back pain but otherwise doing well. Physician History and Exam: TEMP: Measurement DT TEMP F(C) 09/16/2024 13:30 97.5(36.4) PULSE: Measurement DT PULSE 09/16/2024 13:30 143 BLOOD PRESSURE: Measurement DT BP 09/16/2024 13:30 112/75 RESPIRATIONS: No values within 24 hours WEIGHT: Measurement DT WEIGHT LB(KG)[BMI] 09/16/2024 13:30 317.2(143.88)[43*] RENAL VASCULAR DUPLEX - NONE FOUND - 1Y Active Outpatient Medications (including Supplies): Active Outpatient Medications Status 1) ACCU-CHEK GUIDE (GLUCOSE) TEST STRIP USE 1 STRIP TO TEST ACTIVE BLOOD SUGAR DIRECTED LIMIT 50 STRIPS EVERY 90 DAYS 2) APIXABAN 5MG TAB TAKE ONE-HALF TABLET BY MOUTH TWICE A DAY ACTIVE -CALL ANTICOAGULATION CLINIC [phone] WITH QUESTIONS OR CONCERNS Indication: TO THIN BLOOD 3) ATORVASTATIN CALCIUM 40MG TAB TAKE ONE-HALF TABLET BY MOUTH ACTIVE DAILY FOR CHOLESTEROL 4) CARVEDILOL 25MG TAB TAKE ONE TABLET BY MOUTH TWICE A DAY ACTIVE Indication: FOR HEART/BLOOD PRESSURE 5) CHLORTHALIDONE 25MG TAB TAKE ONE TABLET BY MOUTH DAILY ACTIVE Indication: FOR BLOOD PRESSURE 6) FLUOXETINE HCL 20MG CAP TAKE ONE CAPSULE BY MOUTH DAILY FOR ACTIVE MOOD 7) GABAPENTIN 300MG CAP TAKE TWO CAPSULES BY MOUTH TWICE A DAY ACTIVE Indication: FOR NERVE PAIN 8) [id number] PENTOXIFYLLINE SA 400MG/PBO TAKE ONE TABLET BY ACTIVE MOUTH TWICE A DAY WITH FOOD. SWALLOW WHOLE-DO NOT CHEW, CRUSH OR CUT 9) LANCET,SOFTCLIX USE LANCET AFFECTED AREA DIRECTED ACTIVE 10) LISINOPRIL 40MG TAB TAKE ONE TABLET BY MOUTH DAILY FOR BLOOD ACTIVE PRESSURE/HEART 11) METFORMIN HCL 500MG TAB TAKE ONE TABLET BY MOUTH TWICE A DAY ACTIVE (S) FOR DIABETES Indication: FOR BLOOD SUGAR 12) PANTOPRAZOLE NA 40MG EC TAB TAKE ONE TABLET BY MOUTH TWICE A ACTIVE DAY 30 MINUTES BEFORE A MEAL FOR STOMACH, 30 MINUTES BEFORE A MEAL. TAKE ON AN EMPTY STOMACH. 13) SPIRONOLACTONE 25MG TAB TAKE ONE TABLET BY MOUTH DAILY FOR ACTIVE (S) BLOOD PRESSURE/HEART Labs/Ancillary: Sodium: 140 mmol/L (05/05/2024 14:08) Potassium: 5.0 mmol/L (05/05/2024 14:08) Chloride: 110 mmol/L H (05/05/2024 14:08) CO2: 21 mmol/L L (05/05/2024 14:08) Creatinine: Collection DT Specimen Test Name Result Units Ref Range 09/16/2024 13:19 URINE CREATININE 108.2 mg/dL BUN: 30 mg/dL H (05/05/2024 14:08) URR: Glucose: 126 mg/dL H (05/05/2024 14:08) Calcium: 9.9 mg/dL (05/05/2024 14:08) Phosphorus: 2.6 mg/dL (02/05/2024 12:20) Albumin: 3.8 g/dL (04/15/2024 14:41) Alk Phos: 60 U/L (04/15/2024 14:41) WBC: 13.3 K/cmm H (09/16/2024 13:08) HCT: 0 HGB: 0 Platelets: 0 Iron Sat: ____ Total Protein: 14 mg/dL (09/16/2024 13:19) Ferritin: 40.1 ng/mL (04/09/2024 09:50) Transferrin Sat: ____ PTH, Intact: 0 HbsAg: ()Negative ()Positive Diagnosis / Impression: Plan: #CKD Stage 3b - new baseline creatinine in the low 2's since WILLIS - Cr 2.27 today from 2.39 at last visit - Etiology likely 2/2 to longstanding T2DM and HTN nephrosclerosis - Minimal proteinuria - Electrolytes, Acid/base stable - Renal US with medical kidney disease #HTN/fluid overload - Continue lisinporil and chlorthalidone in the morning and jenniffer in evening and coreg BID - note he had swelling with amlodipine, will avoid in future - BP well controlled #T2DM - encouraged tight control - Ok for SGLT2 if needed but having minimal proteinuria #CKD MBD/Vit D deficiency - stable parameters, keep vit D 30-80 RTC 6 months /arleth/ MONY HARRINGTON PGY-1 Signed: 09/16/2024 15:26 /arleth/ JOSR GORDILLO staff physician Cosigned: 09/23/2024 14:50 09/17/2024 ADDENDUM STATUS: COMPLETED Diagnosis/problems,lab results, medication review and changes,treatment plan and follow up discussed with /significant other/caregiver by provider. exited clinic per provider. RTC determined per provider (order/note). Provider to notify and discuss procedure/lab results if deemed necessary. /arleth/ JOANA GEORGE RN [facility] Diabetes/Endocrine/Hasher Operator Signed: 09/17/2024 09:10 [facility] Sep 16, 2024 01:29 PM NURSING OUTPATIENT NOTE: LOCAL TITLE: OPC MEDICINE CLINIC INTAKE NOTE STANDARD TITLE: NURSING OUTPATIENT NOTE DATE OF NOTE: SEP 16, 2024@13:29 ENTRY DATE: SEP 16, 2024@13:29:37 AUTHOR: FELICITAS KAISER EXP COSIGNER: URGENCY: STATUS: COMPLETED Reason for visit/chief complaint: B/P: 125/73 (06/25/2024 09:47) P: 70 (06/25/2024 09:47) R: 20 (06/25/2024 09:47) T: 97.8 F [36.6 C] (06/25/2024 09:47) HT: 72.0 in [182.9 cm] (05/09/2024 10:22) WT: 312.8 lb [141.88 kg] (06/25/2024 09:47) Are you having any pain or recurrent pain in the last several weeks/months? Yes Severity Scale (6) Location: Duration: Characteristics: Chronic (over 3 months) Pain education material offered to patient (for pain > 3) No Risk factors history: Hypertension Yes BP Rechecked No Comments: Patient notified finisher denture available upon request for any examinations/procedures. The [...] DAY TO THIN BLOOD -CALL ANTICOAGULATION CLINIC [phone] WITH QUESTIONS OR CONCERNS Quantity: 90 for 90 days Issued: 04/10/24 Filled: 08/13/24 Expires: 04/11/25 Refills: 2 Status: ACTIVE ATORVASTATIN CALCIUM 40MG TAB Directions: TAKE ONE-HALF TABLET BY MOUTH DAILY FOR CHOLESTEROL Quantity: 45 for 90 days Issued: 05/09/24 Filled: 09/06/24 Expires: 05/10/25 Refills: 2 Status: ACTIVE CARVEDILOL 25MG TAB Directions: TAKE ONE TABLET BY MOUTH TWICE A DAY FOR HEART/BLOOD PRESSURE Quantity: 180 for 90 days Issued: 05/20/24 Filled: 08/02/24 Expires: 05/21/25 Refills: 3 Status: ACTIVE CHLORTHALIDONE 25MG TAB [...] 120 for 30 days Issued: 06/11/24 Filled: 09/15/24 Expires: 06/12/25 Refills: 2 Status: ACTIVE [id number] PENTOXIFYLLINE SA 400MG/PBO Directions: TAKE ONE TABLET [...] 90 for 90 days Issued: 05/09/24 Filled: 08/31/24 Expires: 05/10/25 Refills: 2 Status: ACTIVE PANTOPRAZOLE NA 40MG EC TAB Directions: TAKE ONE TABLET BY MOUTH TWICE A DAY 30 MINUTES BEFORE A MEAL FOR STOMACH, 30 MINUTES BEFORE A MEAL. TAKE ON AN EMPTY STOMACH. Quantity: 180 for 90 days Issued: 05/09/24 Filled: 05/09/24 Expires: 05/10/25 Refills: 3 Status: ACTIVE METFORMIN HCL 500MG TAB Directions: TAKE ONE TABLET BY MOUTH TWICE A DAY FOR DIABETES Quantity: 180 for 90 days Issued: 05/20/24 Filled: 10/16/24 Expires: 05/21/25 Refills: 2 Status: ACTIVE/SUSP SPIRONOLACTONE 25MG TAB Directions: TAKE ONE TABLET BY MOUTH DAILY FOR BLOOD PRESSURE/HEART Quantity: 90 for 90 days Issued: 04/28/24 Filled: 11/19/24 Expires: 04/29/25 Refills: 1 Status: ACTIVE/SUSP No remote medications found. PENDING OUTPATIENT MEDICATONS (LOCAL/REMOTE): No local medications found. No remote medications found. ACTIVE NONVA MEDICATIONS (LOCAL): No local medications found. OUTPATIENT MEDICATIONS (LOCAL)WITHIN 90 DAYS: METFORMIN HCL 500MG TAB Directions: TAKE ONE TABLET BY MOUTH TWICE A DAY FOR DIABETES Quantity: 180 for 90 days Issued: 05/20/24 Filled: 10/16/24 Expires: 05/21/25 Refills: 2 Status: ACTIVE/SUSP SPIRONOLACTONE 25MG TAB Directions: TAKE ONE TABLET BY MOUTH DAILY FOR BLOOD PRESSURE/HEART Quantity: 90 for 90 days Issued: 04/28/24 Filled: 11/19/24 Expires: 04/29/25 Refills: 1 Status: ACTIVE/SUSP DISCONTINUED OUTPATIENT MEDICATIONS (LOCAL) WITHIN 90 DAYS: METFORMIN HCL 500MG TAB Directions: TAKE ONE TABLET BY MOUTH TWICE A DAY FOR DIABETES Quantity: 180 for 90 days Issued: 05/20/24 Filled: 10/16/24 Expires: 05/21/25 Refills: 2 Status: ACTIVE/SUSP SPIRONOLACTONE 25MG TAB Directions: TAKE ONE TABLET BY MOUTH DAILY FOR BLOOD PRESSURE/HEART Quantity: 90 for 90 days Issued: 04/28/24 Filled: 11/19/24 Expires: 04/29/25 Refills: 1 Status: ACTIVE/SUSP APIXABAN 5MG TAB Directions: TAKE ONE-HALF TABLET BY MOUTH TWICE A DAY TO THIN BLOOD -CALL ANTICOAGULATION CLINIC [phone] WITH QUESTIONS OR CONCERNS Quantity: 60 for [...] 02/29/24 Expires: 10/08/24 Refills: 0 Status: DISCONTINUED [id number] PENTOXIFYLLINE SA 400MG/PBO Directions: TAKE ONE TABLET BY MOUTH TWICE A DAY WITH FOOD. SWALLOW WHOLE-DO NOT CHEW, CRUSH OR CUT Quantity: 200 for 90 days Issued: 03/27/24 Filled: 03/28/24 Expires: 06/25/24 Refills: 0 Status: DISCONTINUED METFORMIN HCL 500MG [...] 07/07/24 Expires: 05/10/25 Refills: 3 Status: DISCONTINUED CLINIC MEDICATIONS (LOCAL): No local medications found. Reviewed current medications with patient/signficant other, patient/significant [...] case of an emergency situation. Yes /arleth/ FELICITAS KAISER LPN Signed: 09/16/2024 13:30 FELICITAS KAISER[facility]
--- OUTSIDE RECORDS SUMMARY | 2024-10-20 07:20 | XMS_ITS ---
Author Name [facility] [place] [facility] [place] Address [address] [place] [address] Care Team Providers Care Geoscience Specialist Name Role Phone ESTELA DEJAN Primary Care [...] RISSA SHIRLEY Mar 04, 2012 RISSA RODRIGUEZ [id number] NORMA SHELBY PATIENT [employer] [facility] (WNR) MEDICARE ADVANTAGE [facility] (WNR) Jul 30, 2017 [id number] [phone] HERONNORMAJoel GODOYE PATIENT [employer] [facility] (WNR) MEDICARE ADVANTAGE [facility](W NR) Jul 30, 2017 [id number] HERONNORMAJoel GODOYE PATIENT [employer] [facility] (WNR) [facility]GANIZ MEDIC ARE BRAULIO Connell Jul 30, 2012 [id number] NORMA SHELBY PATIENT MEDICARE (WNR) MEDICARE (M) PART A Jul 30, 2017 PART A [id number] NORMA SHELBY PATIENT MEDICARE (WNR) MEDICARE (M) PART B Jul 30, 2017 PART B [id number] NORMA SHELBY PATIENT MEDICARE PART D (WNR) PRESCRIPT ION PART D Jul 30, 2017 PART D [id number] [phone] NORMA SHELBY PATIENT MEDICARE PART D (WNR) MEDICARE (M) PART D Jul 30, 2017 PART D [id number] NORMA SHELBY PATIENT MEDICARE PART D (WNR) MEDICARE (M) PART D Jul 30, 2017 PART D [id number] NORMA SHELBY PATIENT MEDICARE PART D (WNR) MEDICARE (M) PART D Jul 30, 2012 PART D [id number] NORMA SHELBY PATIENT Selected Encounter This section includes the information on record at [place] for the Encounter. Date/Time Encounter Type Encounter Description Reason Provider Source Oct 20, 2024 11:20 AM EMERGENCY DEPT VISIT [facility] EMERGENCY DEPT ICD-10-CM L02.212 Cutaneous abscess of back [any part, except buttock] REZA RIVAS Abi Encounter Template Text not used by [place] Assessments - Encounter Diagnoses This section includes the primary and secondary diagnoses documented for the Encounter. Date/Time Primary/Secondary Diagnosis Diagnosis Name Provider Source Oct 20, 2024 01:35 PM PRIMARY Cutaneous abscess of back [any part, except buttock] [facility] Oct 20, 2024 01:35 PM SECONDARY Sebaceous cyst [facility] Plan of Treatment: Future Appointments (+ 6 [...] The data comes from all [place] treatment [facility]. Appointment Date/Time Appointment Type Appointme nt Facility Name Oct 29, 2024 10:30 AM [facility] [facility] Nov 04, 2024 11:00 AM AMBULATORY - MEDICINE [facility] Nov 04, 2024 01:40 PM [facility] Nov 12, 2024 10:20 AM AMBUL[facility]ORY - SURGERY [facility] December 10, 2024 10:20 AM AMBULATORY - SURGERY [place] [facility] December 24, 2024 08:30 AM [facility] Jan 28, 2025 01:30 PM AMBULATORY - REHAB [facility] Feb 04, 2025 09:00 AM [facility] Mar 16, 2025 11:30 AM AMBULATORY - NONE [place] [facility] Mar 18, 2025 09:30 AM [facility] Vital Signs: All taken on the encounter date This section contains inpatient and outpatient Vital Signs collected on the date of the Encounter. Date/Time Temperature Pulse Blood Pressure Respiratory Rate SP02 Pain Height Weight Body Mass Index Source Oct 20, 2024 11:51 AM 98.5 82 132/80 14 5 [facility] Social History: Smoking Status (Most current) and [...] took place. Date/Time Current Smoking Status Comment [facility] ity December 08, 2008 06:50 PM V9 QUIT TOBACCO >7 YEARS AGO [facility] Tobacco Use History This section includes a history of the smoking, or tobacco-related health factors, that were collected on or before the date of the Encounter. The data comes from the [place] facility where the Encounter took place. 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 [address] [place] [address] Sep 19, 2005 02:18 PM HF V9 CURRENT SMOKER SMOKES ABOUT 1/2 PPD [facility] Feb 07, 2005 02:38 PM HF 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 [address] [place] [address] Aug 30, 2004 11:28 AM HF V9 THIRD TOBACCO STEM PROCESSING MACHINE OPERATOR SMOKES UP TO 1 PACK EVERY COUPLE OF DAYS [facility] Mar 15, 2004 03:48 PM HF V9 CURRENT SMOKER [address] [place] [address] Sep 01, 2003 11:25 AM HF 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 10 CIGARETTES A DAY [facility] Oct 21, 2002 12:42 PM HF V9 CURRENT SMOKER 1 pack a day [facility] Pathology Reports: +/- 30 days of the encounter Pathology Reports For cases when an order for pathology services may have been completed prior to the date of the Encounter, the report list includes the Pathology Reports that were completed up to 30 days before dateof the Encounter. For cases when an order for pathology services may have been completed after the date of the Encounter, the report list also includes the Pathology Reports that were completed up to30 days after date of the Encounter. The data comes from all [facility] facilities. Date/Time Pathology Report Provider Source Nov 04, 2024 03:53 PM LR SURGICAL PATHOL OGY REPORT: LOCAL TITLE: LR SURGICAL PATHOLOGY REPORT DATE OF NOTE: NOV 04, 2024@15:53:05 ENTRY DATE: NOV 04, 2024@15:53:05 AUTHOR: KIMBERLI DUTTON COSIGNER: URGENCY: STATUS: COMPLETED $APHDR Reporting Lab: [facility] [CLIA# [id number]] [address] [place] [address] - - - - - - - - - - - - - - - - - - - - - - - - - - - - - - - - - - - - - - - - MEDICAL RECORD SURGICAL PATHOLOGY - - - - - - - - - - - - - - - - - - - - - - - - - - - - - - - - - - - - - - - - PATHOLOGY REPORT Accession No. [id number] - - - - - - - - - - - - - - - - - - - - - - - - - - - - - - - - - - - - - - - - $TEXT Submitted by: GENERAL SURGERY Date obtained: Oct 29, 2024 - - - - - - - - - - - - - - - - - - - - - - - - - - - - - - - - - - - - - - - - Specimen (Received Oct 30, 2024 08:46): RIGHT SHOULDER LESION - - - - - - - - - - - - - - - - - - - - - - - - - - - - - - - - - - - - - - - - BRIEF CLINICAL HISTORY: RIGHT SHOULDER LESION. - - - - - - - - - - - - - - - - - - - - - - - - - - - - - - - - - - - - - - - - PREOPERATIVE DIAGNOSIS: RIGHT SHOULDER LESION. - - - - - - - - - - - - - - - - - - - - - - - - - - - - - - - - - - - - - - - - OPERATIVE FINDINGS: PROCEDURE & FINDINGS - NOT GIVEN. - - - - - - - - - - - - - - - - - - - - - - - - - - - - - - - - - - - - - - - - POSTOPERATIVE DIAGNOSIS: RIGHT SHOULDER LESION. Surgeon/physician: SOLE MENDOZA MD =-=-=-=-=-=-=-=-=-=-=-=-=-=-=- =-=-=-=-=-=-=-=-=-=-=-=-=-=-=- =-=-=-=-=-=-=-=-=-= - - - - - - - - - - - - - - - - - - - - - - - - - - - - - - - - - - - - - - - - PATHOLOGY REPORT Accession No. [id number] - - - - - - - - - - - - - - - - - - - - - - - - - - - - - - - - - - - - - - - - Pathology Resident: AUDRA DURANT The specimen is received in formalin labeled right shoulder lesion and consists of an unoriented, hair-bearing, ferguson/white ellipse of skin measuring 5.1 cm from tip to tip, 2.8 cm perpendicularly, and 1.2 cm in depth. A hard 0.5 x 0.3 cm ferguson crust is identified in the center of the ellipse of skin. No other lesions are identified grossly. The cut surface is yellow to pink. The lesion lies 1.7 cm from one tip, 3.1 cm from the other tip. The cut surface is inked blue. Serial sectioning reveals a white trabecular appearance in the superior aspect of the cut surface with a white collapsed cyst-like structure directly below measuring 1.4 x 1.1 x 1.0 cm. The cyst-like structure is approximately 0.6 cm away from the deep margin. Cassette summary: 1 - tip closest to lesion; 2 - tip furthest from lesion; 3 - section of cyst-like structure; 4-15 - remainder of cyst-like structure, entirely submitted (each section is bisected and placed in two cassettes). CPT CODE - 53405 MICROSCOPIC EXAM/DIAGNOSIS: Skin, right shoulder, shave biopsy: -Ruptured epidermal inclusion cyst. /arleth/ KIMBERLI DUTTON CHIEF,PATHOLOGY [facility] Signed Nov 04, 2024@15:53 Performing Laboratory: Surgical Pathology Report Performed By: [facility] [CLIA# [id number]] [address] [place] [address] $FTR - - - - - - - - - - - - - - - - - - - - - - - - - - - - - - - - - - - - - - - - (End of report) KIMBERLI DUTTON MD [facility] Date Nov 04, 2024 - - - - - - - - - - - - - - - - - - - - - - - - - - - - - - - - - - - - - - - - CHELSEY SHELBY STANDARD FORM 515 ID:[id number] SEX:M :1945 AGE: 78 LOC:PATH PCP: Dejan Gutierrez MD /arleth/ KIMBERLI DUTTON CHIEF,PATHOLOGY [facility] Signed: 11/04/2024 15:53 [facility] Encounter Notes: All associated encounter notes This section contains the clinical notes associated to the Encounter. Date/Time Encounter Note(s) Provider Source Oct 20, 2024 01:12 PM EMERGENCY DEPT NOTE: LOCAL TITLE: ED PROCEDURE NOTE-INCISION AND DRAINAGE(I&D) STANDARD TITLE: EMERGENCY DEPT NOTE DATE OF NOTE: OCT 20, 2024@13:12 ENTRY DATE: OCT 20, 2024@13:12:37 AUTHOR: CHILO RIVASIGNER: URGENCY: STATUS: COMPLETED Indication: abscess Proceduralist: Emily Rivas APRN Attending Physician: In attendance: No Informed consent: Emergent Anesthesia: Lidocaine 1% for local infiltration Verified completion of consent, correct patient, procedure, site, supplies, and a time out performed: Yes Skin preparation Chloraprep (Chlorhexidine) Procedure Summary: Site of procedure was prepped and draped in the usual sterile fashion. Local anesthetic was infiltrated to anesthetize the surrounding skin. A scapel was used to incise sharply, making a horizontal incision horizontally across the body of the abscess. Using a curved hemostat, the abscess was bluntly dissected to disrupt any loculations. Following evacuation of the abscess, sterile saline was used to irigate the abscess. The abscess was packed and dressed. Estimated blood loss (ml): 0 Wound cultures obtained: No Complications: The patient suffered no complications from the procedure. Additional comments: /arleth/ CHILO RIVAS APRN EMERGENCY DEPARTMENT Signed: 10/20/2024 13:13 CHILO RIVASJuan Carlos [facility] Oct 20, 2024 01:04 PM EMERGENCY DEPT NOTE: LOCAL TITLE: ED PHYSICIAN/SENIOR LANDSCAPE ARCHITECT/PA NOTE STANDARD TITLE: EMERGENCY DEPT NOTE DATE OF NOTE: OCT 20, 2024@13:04 ENTRY DATE: OCT 20, 2024@13:04:54 AUTHOR: CHILO RIVAS EXP COSIGNER: URGENCY: STATUS: COMPLETED TIME SEEN: 12:45 CHIEF COMPLAINT: lump back HISTORIAN: [X] Patient [X] Spouse [ ] Son [ ] Daughter [ ] Skilled Nursing [ ] EMS [ ] Other: HPI: 78; WHITE; MALE presents to ED c/o tender, red,warm,swollen lump to back that he noticed . pt reports a cyst has been there for years.no fever. no drainage. ROS: [ ] Unable to fully assess due to: CONSTITUTIONAL: Fever [ ]Y [ ]N Chills [ ]Y [ ]N Fatigue [ ]Y [ ]N Sweats [ ]Y [ ]N Other: SKIN: Rash [ ]Y [ ]N Bruising [ ]Y [ ]N Other: EYES: Diplopia [ ]Y [ ]N Change in vision [ ]Y [ ]N Other: ENT: Vertigo [ ]Y [ ]N Rhinorrhea [ ]Y [ ]N Sore throat [ ]Y [ ]N Other: RESPIRATORY: Cough [ ]Y [ ]N Short of breath [ ]Y [ ]N Hemoptysis [ ]Y [ ]N Other: CARDIAC: Chest pain [ ]Y [ ]N Palpitations [ ]Y [ ]N Pedal edema [ ]Y [ ]N Other: GASTROINTESTINAL: Nausea [ ]Y [ ]N Vomiting [ ]Y [ ]N Diarrhea [ ]Y [ ]N Abdominal Pain [ ]Y [ ]N Other: GENITOURINARY: Dysuria [ ]Y [ ]N Hematuria [ ]Y [ ]N Frequency [ ]Y [ ]N Other: MUSCULOSKELETAL: Arthralgias [ ]Y [ ]N Myalgias [ ]Y [ ]N Back pain [ ]Y [ ]N Other: ENDOCRINE: Heat/cold intol [ ]Y [ ]N Weight gain/loss [ ]Y [ ]N Other: NEUROLOGIC: Headache [ ]Y [ ]N Dizziness [ ]Y [ ]N Focal weakness [ ]Y [ ]N Incontinence [ ]Y [ ]N Confusion [ ]Y [ ]N Speech difficulty[ ]Y [ ]N Other: PSYCHIATRY: Depression [ ]Y [ ]N SI/HI [ ]Y [ ]N Other: PAST MEDICAL HX: Active problems - Computerized Problem List is the source for the followin. Benign hypertensive renal disease 2. Paroxysmal atrial fibrillation 3. Long-term current use of anticoagulant 4. Chronic Kidney Disease Stage 3 ([facility] [id number]) 5. Chronic pain 6. Long-term current use of oral hypoglycemic medication 7. Exertional dyspnea 8. Anemia 9. 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 Acquired trigger finger of left index finger 11. Diabetic neuropathy 12. Jay's Esophagus (SCT [id number]) repeat due 01/2021 13. Adenomatous polyp of [...] 20. Lumbar spondylosis with myelopathy (SNOMED CT 01116660) 21. Personal History of Venous Thrombosis and Embolism 22. Obstructive sleep apnea syndrome (SNOMED CT 34562345) 23. Obesity (SNOMED CT 119042492) 24. Mixed hyperlipidemia (SNOMED CT 865942370) 25. Benign hypertensive renal disease ALLERGIES: Patient has answered NKA MEDICATION: Active Outpatient Medications (including Supplies): ACCU-CHEK GUIDE (GLUCOSE) TEST STRIP USE 1 STRIP TO TEST ACTIVE BLOOD SUGAR DIRECTED LIMIT 50 STRIPS EVERY 90 DAYS APIXABAN 5MG TAB TAKE ONE-HALF TABLET BY MOUTH TWICE A DAY ACTIVE -CALL ANTICOAGULATION CLINIC [phone] WITH QUESTIONS OR CONCERNS Indication: TO THIN BLOOD ATORVASTATIN CALCIUM 40MG TAB TAKE ONE-HALF TABLET BY ACTIVE MOUTH DAILY FOR CHOLESTEROL CARVEDILOL 25MG TAB TAKE ONE TABLET BY MOUTH TWICE A DAY ACTIVE Indication: FOR HEART/BLOOD PRESSURE CHLORTHALIDONE 25MG TAB TAKE ONE TABLET BY MOUTH DAILY ACTIVE Indication: FOR BLOOD PRESSURE DOXYCYCLINE HYCLATE 100MG TAB TAKE ONE TABLET BY MOUTH PENDING TWICE A DAY Indication: FOR SKIN OR EYE CONDITION FLUOXETINE HCL 20MG CAP TAKE ONE CAPSULE BY MOUTH DAILY ACTIVE FOR MOOD GABAPENTIN 300MG CAP TAKE TWO CAPSULES BY MOUTH TWICE A ACTIVE DAY Indication: FOR NERVE PAIN [id number] PENTOXIFYLLINE SA 400MG/PBO TAKE ONE TABLET BY ACTIVE MOUTH TWICE A DAY WITH FOOD. SWALLOW WHOLE-DO NOT CHEW, CRUSH OR CUT LANCET,SOFTCLIX USE LANCET AFFECTED AREA DIRECTED ACTIVE LISINOPRIL 40MG TAB TAKE ONE TABLET BY MOUTH DAILY FOR ACTIVE BLOOD PRESSURE/HEART METFORMIN HCL 500MG TAB TAKE ONE TABLET BY MOUTH TWICE A ACTIVE DAY FOR DIABETES Indication: FOR BLOOD SUGAR PANTOPRAZOLE NA 40MG EC TAB TAKE ONE TABLET BY MOUTH TWICE ACTIVE A DAY 30 MINUTES BEFORE A MEAL FOR STOMACH, 30 MINUTES BEFORE A MEAL. TAKE ON AN EMPTY STOMACH. SPIRONOLACTONE 25MG TAB TAKE ONE TABLET BY MOUTH DAILY FOR ACTIVE (S) BLOOD PRESSURE/HEART PERTINENT SURGERY/PROCEDURE: see chart PERTINENT FAMILY HISTORY: dm2 PERTINENT SOCIAL HISTORY: PHYSICAL EXAM: VITALS: TEMP: Measurement DT TEMP F(C) 10/20/2024 11:51 98.5(36.9) BLOOD PRESSURE: Measurement DT BP 10/20/2024 11:51 132/80 PULSE: Measurement DT PULSE 10/20/2024 11:51 82 RESPIRATIONS: Measurement DT RESP 10/20/2024 11:51 14 PULSE OX: No data available WEIGHT: No values within 24 hours CONSTITUTIONAL: [X] Reviewed today's triage vital signs [X] WD/WN [ ] Obese [X] NAD [ ] Other: EYES: [X] Lids and conjunctival normal [X] PERRLA [ ] Other: ENT: [ ] TM/canal normal [X] External ear/nose normal [ ] Oropharynx pink/clear [ ] Other: NECK: [ ] Supple [ ] No JVD [ ] Thyroid normal [ ] Other: CARDIOVASCULAR: [ ] RRR w/o murmur [ ] No pedal edema [ ] Pedal pulses normal [ ] Other: RESPIRATORY: [ ] Clear to auscultation [ ] BS equal [X] Normal respiratory effort [ ] Palpation of chest nontender [ ] Other: GASTROINTESTINAL: [ ] Soft [ ] Nontender [ ] No peritoneal signs [ ] Normal BS [ ] No Hepatosplenomegaly [ ] Other: [ ] Rectal exam: GENITOURINARY: [ ] Other: LYMPHATIC: [X] No cervical adenopathy [ ] No axillary adenopathy [ ] No inguinal adenopathy [ ] Other: MUSCULOSKELETAL: [X] Normal range of motion all extremities [ ] No clubbing/cyanosis [ ] Spine nontender [X] Gait normal [ ] Other: SKIN: [X] Warm and dry [X] No rash [ ] Palpation normal [X] Other: 1.5-2cm lump with moderate erythema/induration,central fluctuance no drainage NEUROLOGIC: [ ] Coordination normal [X] Good strength all extremities [ ] Cranial nerves 2-12 intact [ ] Deep tendon reflexes equal bilaterally [ ] Sensation grossly normal [ ] Other: PSYCHIATRIC: [X] Alert and oriented x3 [X] Mood/affect normal [ ] Judgment/insight normal [ ] Recent and remote memory normal [ ] Other: LABS: [ ] Independent interpretation of labs EKG: [ ] Independent interpretation of EKG CXR: [ ] Independent interpretation of x-rays OTHER IMAGING: [ ] Independent interpretation of radiology studies ED COURSE/MEDICAL DECISION MAKING: [ ] Outside records reviewed [X] I have reviewed relevant medical records, laboratory reports and radiology studies [X] My findings and treatment plan were discussed with the patient and/or significant other see I&D note will dc home with warm compresses,doxy, gs referral. CONSULTED/DISCUSSED WITH: TIME: [ ] CRITICAL CARE TIME: [ ] PROCEDURES (see separate procedure note): ASSESSMENT/IMPRESSION: cutaneous abscess sebaceous cyst PLAN: see mdm DISPOSITION TIME: [X] Home [ ] Admitted [ ] Transferred [ ] [place] [ ] [facility] [ ] [facility] [ ] [facility] [ ] [facility] [ ] Other: FOLLOW UP TIME FRAME: [ ] PC [ ] Specialist: [X] Other: GS as scheduled. /arleth/ CHILO RIVAS APRN EMERGENCY DEPARTMENT Signed: 10/20/2024 13:12 CHILO RIVAS-CDD [facility] Oct 20, 2024 01:00 PM EMERGENCY DEPT NOTE: LOCAL TITLE: ED 10-10M PT DISCHARGE/ADMIT INSTRUCTIONS STANDARD TITLE: EMERGENCY DEPT NOTE DATE OF NOTE: OCT 20, 2024@13:00 ENTRY DATE: OCT 20, 2024@13:00:40 AUTHOR: CHILO IRVAS EXP COSIGNER: URGENCY: STATUS: COMPLETED Diagnosis today: sebaceous cyst infected New Medications today: see below MEDICATION HISTORY: [place] Prescribed Medications: Active Outpatient Medications (including Supplies): Active Outpatient Medications Status 1) ACCU-CHEK GUIDE (GLUCOSE) TEST STRIP USE 1 STRIP TO TEST ACTIVE BLOOD SUGAR DIRECTED LIMIT 50 STRIPS EVERY 90 DAYS 2) APIXABAN 5MG TAB TAKE ONE-HALF TABLET BY MOUTH TWICE A DAY ACTIVE -CALL ANTICOAGULATION CLINIC [phone] WITH QUESTIONS OR CONCERNS Indication: TO THIN [...] DAY ACTIVE Indication: FOR NERVE PAIN 8) [id number] PENTOXIFYLLINE SA 400MG/PBO TAKE ONE TABLET BY ACTIVE MOUTH TWICE A DAY WITH FOOD. SWALLOW WHOLE-DO NOT CHEW, CRUSH OR CUT 9) LANCET,SOFTCLIX USE LANCET AFFECTED AREA DIRECTED ACTIVE 10) LISINOPRIL 40MG TAB TAKE ONE TABLET BY MOUTH DAILY FOR BLOOD ACTIVE PRESSURE/HEART 11) METFORMIN HCL 500MG TAB TAKE ONE TABLET BY MOUTH TWICE A DAY ACTIVE FOR DIABETES Indication: FOR BLOOD SUGAR 12) PANTOPRAZOLE NA 40MG EC TAB TAKE ONE TABLET BY MOUTH TWICE A ACTIVE DAY 30 MINUTES BEFORE A MEAL FOR STOMACH, 30 MINUTES BEFORE A MEAL. TAKE ON AN EMPTY STOMACH. 13) SPIRONOLACTONE 25MG TAB TAKE ONE TABLET BY MOUTH DAILY FOR ACTIVE (S) BLOOD PRESSURE/HEART Pending Outpatient Medications Status 1) DOXYCYCLINE HYCLATE 100MG TAB TAKE ONE TABLET BY MOUTH TWICE PENDING A DAY Indication: FOR SKIN OR EYE CONDITION 14 Total Medications Explained to the patient and/or significant other the importance of keeping providers updated on medication changes and to carry an updated list of medication at all times in case of an emergency situation. Nursing Provider: sheridan Physical Activity limitations: Dietary Limitations/Discharge Dietary Instructions: Return to the Emergency Department or your nearest Emergency Department if your condition worsens. Special Instructions: Remove packing in 48hours. Warm compresses. Take all antibiotics as ordere until gone. Follow up with General Surgery as scheduled. Patient or significant other verbalizes understanding of instructions given? Yes Patient wristband was removed and destroyed in a shred box. ED Daily Plan given and discussed with patient? Yes Type of Discharge: If you have any questions please contact our Telephone Care Program [phone] locally or Toll Free at After hours [place] Advice Nurse [phone] locally or Toll Free at [facility] is (TALK) To hear your scheduled appointments or to renew your prescriptions by phone call [phone] locally or Toll Free at /arleth/ CHILO RIVAS APRN EMERGENCY DEPARTMENT Signed: 10/20/2024 13:04 CHILO RIVASD [facility] Oct 20, 2024 11:50 AM EMERGENCY DEPT TRIAGE NOTE: LOCAL TITLE: EMERGENCY DEPT TRIAGE PARENT ID NOTE STANDARD TITLE: EMERGENCY DEPT TRIAGE NOTE DATE OF NOTE: OCT 20, 2024@11:50 ENTRY DATE: OCT 20, 2024@11:50:16 AUTHOR: LAUREN PAYTON EXP COSIGNER: URGENCY: STATUS: COMPLETED Emergency Department/Urgent Care Center Triage Patient age:78 Sex in chart: MALE Mode of Arrival: Private vehicle Mode of Mobility: * Wheelchair 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 Follows commands, opens eyes spontaneously, and tracks objects. Vital Signs: Temperature 98.5 F (36.9 C) Pulse 82 Respirations 14 Blood Pressure 132/80 Pulse Oximetry Pain: DVPRS Scale Location: back Defense and Veterans Pain Rating Scale (DVPRS): 5 Interrupts some activities Pain Score: 5 Patient's acceptable pain goal: Suicide Screen: [place] Suicide Severity Rating Scale (C-SSRS) screener 1. [...] required due to responses to other questions. Emergency Severity Index (JANAE) level: Level 3 Previously documented allergies: Patient has answered NKA Current Problems: Active problems - Computerized Problem List is the source for the followin. Benign hypertensive renal disease 2. Paroxysmal atrial fibrillation 3. Long-term current use of anticoagulant 4. Chronic Kidney Disease Stage 3 (SCT [id number]) 5. Chronic pain 6. Long-term current use of oral hypoglycemic medication 7. Exertional dyspnea 8. Anemia 9. 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 Acquired trigger finger of left index finger 11. Diabetic neuropathy 12. Jay's Esophagus (SCT 108377537) repeat due 01/2021 13. Adenomatous polyp of [...] 20. Lumbar spondylosis with myelopathy (SNOMED CT 14102483) 21. Personal History of Venous Thrombosis and Embolism 22. Obstructive sleep apnea syndrome (SNOMED CT 12441726) 23. Obesity (SNOMED CT 510433193) 24. Mixed hyperlipidemia (SNOMED CT 925352010) 25. Benign hypertensive renal disease /es/ LAUREN PAYTON summer child caregiver,BSN Signed: 10/20/2024 11:52 LAUREN PAYTON-MAUREEN [facility]
--- OUTSIDE RECORDS SUMMARY | 2024-10-29 06:30 | XMS_ITS | Encounter Summary ---
Author Name [facility] Address [address] [place] [address] Care Team Providers Care Parking Supervisor Name Role Phone ESTELA DEJAN Primary [...] RISSA SHIRLEY Mar 04, 2012 RISSA RODRIGUEZ [id number] NORMA SHELBY PATIENT [employer] [facility] (WNR) MEDICARE ADVANTAGE [facility](W NR) Jul 30, 2017 [id number] HERON,NORMA WELL[place] PATIENT [employer] [facility] (WNR) MEDICARE ADVANTAGE [facility] (WNR) Jul 30, 2017 [id number] HERONNORMAJoel PARIS PATIENT [employer] [facility] (WNR) [facility] ORGANIZ MEDIC ARE BRAULIO Connell Jul 30, 2012 [id number] [phone] NORMA SHELBY PATIENT MEDICARE (WNR) MEDICARE (M) PART A Jul 30, 2017 PART A [id number] NORMA SHELBY PATIENT MEDICARE (WNR) MEDICARE (M) PART B Jul 30, 2017 PART B [id number] NORMA SHELBY PATIENT MEDICARE PART D (WNR) PRESCRIPT ION PART D Jul 30, 2017 PART D [id number] NORMA SHELBY PATIENT MEDICARE PART D (WNR) MEDICARE (M) PART D Jul 30, 2017 PART D [id number] NORMA SHELBY PATIENT MEDICARE PART D (WNR) MEDICARE (M) PART D Jul 30, 2017 PART D [id number] NORMA SHELBY PATIENT MEDICARE PART D (WNR) MEDICARE (M) PART D Jul 30, 2012 PART D [id number] NORMA SHELBY PATIENT Selected Encounter This section includes the information on record at [place] for the Encounter. Date/Time Encounter Type Encounter Description Reason Provider Source Oct 29, 2024 10:30 AM OFFICE O/P EST LOW 20 MIN GENERAL SURGERY ICD-10-CM L72.0 Epidermal cyst CAVATASSI,WILL BHARATH C IHE Encounter Template Text not used by [place] Assessments - Encounter Diagnoses This section includes the primary and secondary diagnoses documented for the Encounter. Date/Time Primary/Secondary Diagnosis Diagnosis Name Provider Source Nov 07, 2024 11:19 AM PRIMARY Epidermal cyst OCTAVIO ARMAS AM-MAUREEN [facility] Plan of Treatment: Future Appointments (+ 6 months) and Future Tests (+/- 45 days) The Plan of Treatment section includes future care activities for the patient from all [place] treatmentfacilities. This section includes future appointments and future orders which are active, pending or scheduled. Future Appointments This section includes appointments that were scheduled to occur 6 months from the date of the Encounter, up to a maximum of 20 appointments. The data comes from all [place] treatment facilities. Appointment Date/Time Appointment Type Appointme nt Facility Name Nov 04, 2024 11:00 AM AMBULATORY - MEDICINE [facility] Nov 04, 2024 01:40 PM AMBULATORY - SURGERY [facility] Nov 12, 2024 10:20 AM AMBULATORY - SURGERY [facility] December 10, 2024 10:20 AM AMBULATORY - SURGERY [place] [facility]-D [facility] December 24, 2024 08:30 AM AMBULATORY - MEDICINE [facility] Jan 28, 2025 01:30 PM [facility] Feb 04, 2025 09:00 AM AMBULATORY - SURGERY [facility] [facility] Mar 16, 2025 11:30 AM AM[facility]ULATORY - NONE [facility] Mar 18, 2025 09:30 AM [facility] Apr 29, 2025 09:30 AM AMBULATORY - MEDICINE [facility] Social History: Smoking Status (Most current) and Tobacco Use (All prior to encounter date) This section includes the most current, and the historical, smoking and tobacco- related health factors from the [place] facility where the Encounter took place. Current Smoking Status This section includes the most current smoking, or tobacco-related health factor, from the [place] facility where the Encounter took place. Date/Time Current Smoking Status Comment Facil ity December 08, 2008 06:50 PM V9 QUIT TOBACCO >7 YEARS AGO [facility] Tobacco Use History This section includes a history of the smoking, or tobacco-related health factors, that were collected on or before the date of the Encounter. The data comes from the [place] facility where the Encounter took place. Date/Time Smoking Status/Tobac co Use Comment Facility Sep 25, 2007 07:04 PM TOBACCO OFFERRED PT MEDS (PROVIDER) [facility] Sep 25, 2007 07:04 PM V9 CURRENT TOBACCO USER [facility] Sep 25, 2007 07:04 PM V9 TOBACCO OFFERED [facility] Aug 16, 2006 05:31 PM TOBACCO OFFERRED PT MEDS (PROVIDER) [facility] Aug 16, 2006 05:31 PM V9 CURRENT TOBACCO USER [facility] Aug 16, 2006 05:31 PM V9 TOBACCO OFFERED [facility] Feb 08, 2006 02:21 PM HF V9 SECOND TOBACCO LEARNING STRATEGIST .5ppd [facility] Sep 19, 2005 02:18 PM HF V9 CURRENT SMOKER SMOKES ABOUT 1/2 PPD [facility] Feb 07, 2005 02:38 PM HF V9 SECOND TOBACCO LEARNING STRATEGIST .[address] [place] [address] Aug 30, 2004 11:28 AM HF V9 THIRD TOBACCO LEARNING STRATEGIST SMOKES UP TO 1 PACK EVERY COUPLE OF DAYS [facility] Mar 15, 2004 03:48 PM HF V9 CURRENT SMOKER [address] [place] [address] Sep 01, 2003 11:25 AM HF V9 SECOND TOBACCO LEARNING STRATEGIST 10 CIGARETTES A DAY [facility] Oct 21, 2002 12:42 PM HF V9 CURRENT SMOKER 1 pack a day [facility] Pathology Reports: +/- 30 days of the [...] the Encounter. The data comes from all [facility] facilities. Date/Time Pathology Report Provider Source Nov 04, 2024 03:53 PM LR SURGICAL PATHOL OGY REPORT: LOCAL TITLE: LR SURGICAL PATHOLOGY REPORT DATE OF NOTE: NOV 04, 2024@15:53:05 ENTRY DATE: NOV 04, 2024@15:53:05 AUTHOR: KIMBERLI DUTTON COSIGNER: URGENCY: STATUS: COMPLETED $APHDR Reporting Lab: [facility] [IA# [id number]] [address] [place] [phone] - - - - - - - [...] POSTOPERATIVE DIAGNOSIS: RIGHT SHOULDER LESION. Surgeon/physician: SOLE ARMAS MD =-=-=-=-=-=-=-=-=-=-=-=-=-=-=- =-=-=-=-=-=-=-=-=-=-=-=-=-=-=- =-=-=-=-=-=-=-=-=-= - - - [...] placed in two cassettes). CPT CODE - 75109 MICROSCOPIC EXAM/DIAGNOSIS: Skin, right shoulder, shave biopsy: -Ruptured epidermal inclusion cyst. /arleth/ KIMBERLI DUTTON CHIEF,PATHOLOGY C Signed Nov 04, 2024@15:53 Performing Laboratory: Surgical Pathology Report Performed By: [facility] [CLIA# [id number]] [address] [place] [phone] $FTR - - - - - - - - - - - - - - - - - - - - - - - - - - - - - - - - - - - - - - - - (End of report) KIMBERLI DUTTON MD [facility] Date Nov 04, 2024 - - - - - - - - - - - - - - - - - - - - - - - - - - - - - - - - - - - - - - - - GIL SHELBY STANDARD FORM 515 ID:[id number] SEX:M :1945 AGE: 78 LOC:PATH PCP: Dejan Gutierrez MD /arleth/ KIMBERLI DUTTON CHIEF,PATHOLOGY SVC Signed: 11/04/2024 15:53 KIMBERLI DUTTON-D [facility] Encounter Notes: All associated encounter notes This section contains the clinical notes associated to the Encounter. Date/Time Encounter Note(s) Provider Source Nov 04, 2024 08:45 AM ADDENDUM: LOCAL TITLE: Addendum STANDARD TITLE: ADDENDUM DATE OF NOTE: NOV 04, 2024@08:45:48 ENTRY DATE: NOV 04, 2024@08:45:49 AUTHOR: RADHA BEASLEY EXP COSIGNER: URGENCY: STATUS: COMPLETED rtc placed /es/ RADHA BEASLEY General Surgery Freight Car Cleaner Signed: 11/04/2024 08:46 Receipt Acknowledged By: 11/04/2024 09:13 /es/ YARIEL VILLAGOMEZ Advance Warp Drawer --- Original Document --- 10/29/24 GENERAL SURGERY CONSULT RESPONSE: Reason for visit / consultation: Sebaceous Cyst HPI: Gil Shelby is an 78 year old male that presents as a consult for a sebaceous cyst on his upper right shoulder. The patient states that approximately three weeks ago, he began to feel pain in his upper right shoulder when he moved. His significant other looked at it and felt something under the skin. One week ago, the area became red and started to drain white fluid, which prompted them to present to the [place] ED. At the ED, he received an I&D and one week of Doxycycline for an infected sebaceous cyst. Since the cyst was infected, they felt that he should be on abx before removing the cyst completely. The patient states that he has had one cyst a few years ago. He is currently on apixaban for heart rhythm and does not have any implantable cardiac devices. Problem List: Active problems - Computerized Problem List is the source for the followin. Benign hypertensive renal disease 2. Paroxysmal atrial fibrillation 3. Long-term current use of anticoagulant 4. Chronic Kidney Disease Stage 3 (SCT 142107997) 5. Chronic pain 6. Long-term current use of oral hypoglycemic medication 7. Exertional dyspnea 8. Anemia 9. 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 Acquired trigger finger of left index finger 11. Diabetic neuropathy 12. Jay's Esophagus (SCT 204531815) repeat due 01/2021 13. Adenomatous polyp of [...] 20. Lumbar spondylosis with myelopathy (SNOMED CT 58396771) 21. Personal History of Venous Thrombosis and Embolism 22. Obstructive sleep apnea syndrome (SNOMED CT 03832255) 23. Obesity (SNOMED CT 877437259) 24. Mixed hyperlipidemia (SNOMED CT 130134071) 25. Benign hypertensive renal disease Pertinent Medical Hx: Atrial Fibrillation Sebaceous Cyst Removal Hypertension Past Surgical History: Laparoscopic Cholecystectomy Aug 19 2021 Extracapsular Cataract Extraction with Posterior Chamber Introcular Lens Implant, right eye Left Eye Extracapsular Cataract Extraction with Posterior Chamber Intraocular Lens Implant Medication List: Active Outpatient Medications (including Supplies): Active Outpatient Medications Status 1) ACCU-CHEK GUIDE (GLUCOSE) TEST STRIP USE 1 STRIP TO TEST ACTIVE BLOOD SUGAR DIRECTED LIMIT 50 STRIPS EVERY 90 DAYS 2) APIXABAN 5MG TAB TAKE ONE-HALF TABLET BY MOUTH TWICE A DAY ACTIVE -CALL ANTICOAGULATION CLINIC [phone] WITH QUESTIONS OR CONCERNS Indication: TO THIN BLOOD 3) ATORVASTATIN CALCIUM 40MG TAB TAKE ONE-HALF TABLET BY MOUTH ACTIVE DAILY FOR CHOLESTEROL 4) CARVEDILOL 25MG TAB TAKE ONE TABLET BY MOUTH TWICE A DAY ACTIVE Indication: FOR HEART/BLOOD PRESSURE 5) CHLORTHALIDONE 25MG TAB TAKE ONE TABLET BY MOUTH DAILY ACTIVE Indication: FOR BLOOD PRESSURE 6) DOXYCYCLINE HYCLATE 100MG TAB TAKE ONE TABLET BY MOUTH TWICE ACTIVE A DAY Indication: FOR SKIN OR EYE CONDITION 7) FLUOXETINE HCL 20MG CAP TAKE ONE CAPSULE BY MOUTH DAILY FOR ACTIVE MOOD 8) GABAPENTIN 300MG CAP TAKE TWO CAPSULES BY MOUTH TWICE A DAY ACTIVE Indication: FOR NERVE PAIN 9) [id number] PENTOXIFYLLINE SA 400MG/PBO TAKE ONE TABLET BY ACTIVE MOUTH TWICE A DAY WITH FOOD. SWALLOW WHOLE-DO NOT CHEW, CRUSH OR CUT 10) LANCET,SOFTCLIX USE LANCET AFFECTED AREA DIRECTED ACTIVE 11) LISINOPRIL 40MG TAB TAKE ONE TABLET BY MOUTH DAILY FOR BLOOD ACTIVE PRESSURE/HEART 12) METFORMIN HCL 500MG TAB TAKE ONE TABLET BY MOUTH TWICE A DAY ACTIVE FOR DIABETES Indication: FOR BLOOD SUGAR 13) PANTOPRAZOLE NA 40MG EC TAB TAKE ONE TABLET BY MOUTH TWICE A ACTIVE DAY 30 MINUTES BEFORE A MEAL FOR STOMACH, 30 MINUTES BEFORE A MEAL. TAKE ON AN EMPTY STOMACH. 14) SPIRONOLACTONE 25MG TAB TAKE ONE TABLET BY MOUTH DAILY FOR ACTIVE (S) BLOOD PRESSURE/HEART Allergies: Patient has answered NKA ROS: Cardiac: No chest pain Respiratory: No shortness of Breath Other pertinent: Pain in right upper shoulder associated with raised nodule. Redness and fluid drainage from nodule. Constitutional: Well appearing. No fevers Physical Exam: Respiratory: Normal respiratory Effort Skin, including measurements of any lesions: Erythematous, raised mass approximately 2 inches in diameter in upper posterior right shoulder. Is not currently draining fluid. Code Status: DNR/DNRA Assessment and Plan: Gil Shelby is an 78 year old man that presents to general surgery for management of sebaceous cyst, previously I&D'd and treated with one week of oral doxycycline. Although patient is currently on apixaban, he expresses the desire to completely remove the cyst today, even with the increased risk of bleeding. As he has already completed one week of abx and the cyst does not appear to have an active, purulent infection, will excise the sebaceous cyst in clinic today. Follow-up: see procedure note from today /arleth/ GILDA ASTORGA Signed: 10/29/2024 15:21 /es/ Sole Armas MD Attending Physician Cosigned: 10/30/2024 10:17 10/30/2024 ADDENDUM STATUS: COMPLETED I was present for the medical student history taking and examination. I independently performed the history, physical examination, and medical decision making. I hereby attest to the accuracy of the student's note as to history, physical examination, and medical decision making, any exceptions or corrections (if present) are noted below. Left posterior shoulder epidermal cystplan for excision in clinic Benefits and risks of surgery including infection and wound opening up were explained to the patient and he wishes to proceed /arleth/ Sole Armas MD Attending Physician Signed: 10/30/2024 10:18 RADHA BEASLEY-CDD [facility] Oct 30, 2024 10:29 AM SURGERY PROCEDURE NOTE: LOCAL TITLE: GENERAL SURGERY PROCEDURE NOTE STANDARD TITLE: SURGERY PROCEDURE NOTE DATE OF NOTE: OCT 30, 2024@10:29 ENTRY DATE: OCT 30, 2024@10:29:35 AUTHOR: ADIS MOLINA EXP COSIGNER: SOLE ARMAS URGENCY: STATUS: COMPLETED GENERAL SURGERY PROCEDURE NOTE Has ADDENDA Focused history and physical complete and current (within 30 days) No interval changes in H&P (if older than 24 hours) Prior to procedure, the operative/procedure team members verbally confirmed: Correct patient identity (2 identifiers) Correct operation/procedure to be performed Correct operative/procedure site/side Correct consent form Correct position Correct imaging labeled and displayed Correct implant(s) available, if applicable Special equipment available, if applicable Allergies confirmed COMMENTS: Site marked Right upper back Indication for procedure: mass right upper back Procedure details: Skin lesion #1 Pt prepped and draped Local injected Lesion Type: cyst Location: right upper back An elliptical incision was made overlying the lesion The lesion, not the incision, measured 3mm x 3mm The lesion was dissected out and completely excised. The specimen, labeled right upper back cyst, was sent to pathology. The wound was irrigated and hemostasis achieved. The incision was closed with: interrupted nylons and covered with a dressing. Pt tolerated procedure well. Estimated blood loss minimal D/C Instructions: May shower in 48 hours, No baths/swimming for 2 weeks, Call for drainage, infection, swelling, pain, or fevers greater than 100.5 degrees CPT Code(s): Follow-up: Other: 1-2 weeks /chema MOLINA SURGERY RESIDENT Signed: 10/30/2024 10:31 /chema Armas MD Attending Physician Cosigned: 10/30/2024 12:02 10/30/2024 ADDENDUM STATUS: COMPLETED Correction: The above measurements should be in centimeters not millimeters, lesion being 3 x 3 cm /es/ Sole Armas MD Attending Physician Signed: 10/30/2024 12:03 11/05/2024 ADDENDUM STATUS: COMPLETED Date/Time: Sunday 10:20 AM [facility]: CARLOS GILLETTE/FOLLOW-UP/CD /arleth/ YARIEL VILLAGOMEZ Advance Warp Drawer Signed: 11/05/2024 08:53 [facility]IS [facility]OLINA [facility] Oct 29, 2024 11:54 AM PATHOLOGY NOTE: LOCAL TITLE: TISSUE EXAM REQUEST STANDARD TITLE: PATHOLOGY NOTE DATE OF NOTE: OCT 29, 2024@11:54 ENTRY DATE: OCT 29, 2024@11:54:30 AUTHOR: JOANA VERA EXP COSIGNER: URGENCY: STATUS: COMPLETED Specimen Submitted By: general surgery Obtained: OCT 29, 2024 Specimen(s): A. right shoulder lesion Brief Clinical History: right shoulder lesion Operative Procedure(s): Preoperative Diagnosis: right shoulder lesion Operative Findings: Postoperative Diagnosis: right shoulder lesion Physician Collecting Specimen: Dr. Cohn Attending Provider: Dr. Sole Armas LAB USE ONLY Accession Number(s) AGE: 78 SEX: MALE RACE: WHITE /arleth/ JOANA VERA TOP FRAME MAKER Signed: 10/29/2024 12:07 [facility] Oct 29, 2024 11:53 AM SURGERY NURSING NO TE: LOCAL TITLE: SURGERY CLINIC INTAKE NOTE STANDARD TITLE: SURGERY NURSING NOTE DATE OF NOTE: OCT 29, 2024@11:53 ENTRY DATE: OCT 29, 2024@11:53:56 AUTHOR: JOANA VERA EXP COSIGNER: URGENCY: STATUS: COMPLETED The patient was [...] of active outpatient prescriptions dispensed from this [place] (local) and dispensed from another [place] or [facility] facility (remote) as well as inpatient orders (local pending and active), local clinic medications, locally documented non-VA medications, and local prescriptions that have or been discontinued in the past 90 days. Non-VA Meds Last Documented On: May 08, 2019 NOTE The display of VA prescriptions dispensed from another [place] or [employer] facility (remote) is limited to active outpatient prescription entries matched to National Drug File at the originating site and may not include some items such as investigational drugs, compounds, etc. NOT INCLUDED IN THIS LIST: Medications self-entered by the patient into personal health records (i.e. [employer]) are NOT included in this list. Non-VA medications documented outside this [place], remote inpatient orders (regardless of status) and remote clinic medications are NOT included in this list. The patient and provider must always discuss medications the patient is taking, regardless of where the medication was dispensed or obtained. OUTPT APIXABAN 5MG TAB (Status = Active) TAKE ONE-HALF TABLET BY MOUTH TWICE A DAY TO THIN BLOOD -CALL ANTICOAGULATION CLINIC [phone] WITH QUESTIONS OR CONCERNS Rx# [id number] Last Released: 10/28/24 Qty/Days Supply: 90 Rx Expiration Date: 04/11/25 Refills Remainin Indication: TO THIN BLOOD OUTPT ATORVASTATIN CALCIUM 40MG TAB (Status = Active) TAKE ONE-HALF TABLET BY MOUTH DAILY FOR CHOLESTEROL Rx# [id number] Last Released: 09/13/24 Qty/Days Supply: 45/90 Rx Expiration Date: 05/10/25 Refills Remainin OUTPT CARVEDILOL 25MG TAB (Status = Active) TAKE ONE TABLET BY MOUTH TWICE A DAY FOR HEART/BLOOD PRESSURE Rx# [id number] Last Released: 10/14/24 Qty/Days Supply: 180/90 Rx Expiration Date: 05/21/25 Refills Remainin Indication: FOR HEART/BLOOD PRESSURE OUTPT CHLORTHALIDONE 25MG TAB (Status = Active) TAKE ONE TABLET BY MOUTH DAILY FOR BLOOD PRESSURE Rx# [id number] Last Released: 05/09/24 Qty/Days Supply: 90/ Rx Expiration Date: 05/10/25 Refills Remainin Indication: FOR BLOOD PRESSURE OUTPT DOXYCYCLINE HYCLATE 100MG TAB (Status = Active) TAKE ONE TABLET BY MOUTH TWICE A DAY Rx# [id number] Last Released: 10/20/24 Qty/Days Supply: 09/02 Rx Expiration Date: 11/19/24 Refills Remainin Indication: FOR SKIN OR EYE CONDITION OUTPT FLUOXETINE HCL 20MG CAP (Status = Active) TAKE ONE CAPSULE BY MOUTH DAILY FOR MOOD Rx# [id number] Last Released: 05/09/24 Qty/Days Supply: 90 Rx Expiration Date: 05/10/25 Refills Remainin OUTPT GABAPENTIN 300MG CAP (Status = Active) TAKE TWO CAPSULES BY MOUTH TWICE A DAY FOR NERVE PAIN Rx# [id number] Last Released: 10/21/24 Qty/Days Supply: 120/30 Rx Expiration Date: 06/12/25 Refills Remainin Indication: FOR NERVE PAIN OUTPT [id number] PENTOXIFYLLINE SA 400MG/PBO (Status = ) TAKE ONE TABLET BY MOUTH TWICE A DAY WITH FOOD. SWALLOW WHOLE-DO NOT CHEW, CRUSH OR CUT Rx# [id number] Last Released: 06/24/24 Qty/Days Supply: 200/90 Rx Expiration Date: 09/21/24 Refills Remainin OUTPT [id number] PENTOXIFYLLINE SA 400MG/PBO (Status = Active) TAKE ONE TABLET BY MOUTH TWICE A DAY WITH FOOD. SWALLOW WHOLE-DO NOT CHEW, CRUSH OR CUT Rx# [id number] Last Released: 09/22/24 Qty/Days Supply: 200/90 Rx Expiration Date: 12/21/24 Refills Remainin OUTPT LISINOPRIL 40MG TAB (Status = Active) TAKE ONE TABLET BY MOUTH DAILY FOR BLOOD PRESSURE/HEART Rx# [id number] Last Released: 09/06/24 Qty/Days Supply: 90/90 Rx Expiration Date: 05/10/25 Refills Remainin OUTPT METFORMIN HCL 500MG TAB (Status = Active) TAKE ONE TABLET BY MOUTH TWICE A DAY FOR DIABETES Rx# [id number] Last Released: 10/10/24 Qty/Days Supply: 180/ Rx Expiration Date: 05/21/25 Refills Remainin Indication: FOR BLOOD SUGAR OUTPT PANTOPRAZOLE NA 40MG EC TAB (Status = Active) TAKE ONE TABLET BY MOUTH TWICE A DAY 30 MINUTES BEFORE A MEAL FOR STOMACH, 30 MINUTES BEFORE A MEAL. TAKE ON AN EMPTY STOMACH. Rx# [id number] Last Released: 05/09/24 Qty/Days Supply: 180/90 Rx Expiration Date: 05/10/25 Refills Remainin OUTPT SPIRONOLACTONE 25MG TAB (Status = Active/Suspended) TAKE ONE TABLET BY MOUTH DAILY FOR BLOOD PRESSURE/HEART Rx# [id number] Last Released: 09/04/24 Qty/Days Supply: 90/90 Rx Expiration Date: 04/29/25 Refills Remainin SUPPLIES OUTPT ACCU-CHEK GUIDE (GLUCOSE) TEST STRIP (Status = Active) USE 1 STRIP TO TEST BLOOD SUGAR DIRECTED LIMIT 50 STRIPS EVERY 90 DAYS Rx# [id number] Last Released: 04/18/24 Qty/Days Supply: 50/ Rx Expiration Date: 04/17/25 Refills Remainin OUTPT LANCET,SOFTCLIX (Status = Active) USE LANCET AFFECTED AREA DIRECTED Rx# [id number] Last Released: 04/18/24 Qty/Days Supply: 100/90 Rx Expiration Date: 04/17/25 Refills Remainin /es/ JOANA VERA TOP FRAME MAKER Signed: 10/29/2024 11:54 JOANA VERA [place]-CDD [facility] Oct 29, 2024 10:46 AM SURGERY CONSULT: LOCAL TITLE: GENERAL SURGERY CONSULT RESPONSE STANDARD TITLE: SURGERY CONSULT DATE OF NOTE: OCT 29, 2024@10:46 ENTRY DATE: OCT 29, 2024@10:49:20 AUTHOR: GILDA ASTORGA COSIGNER: SOLE ARMAS URGENCY: STATUS: COMPLETED GENERAL SURGERY CONSULT RESPONSE Has ADDENDA Reason for visit / consultation: Sebaceous Cyst HPI: Gil Shelby is an 78 year old male that presents as a consult for a sebaceous cyst on his upper right shoulder. The patient states that approximately three weeks ago, he began to feel pain in his upper right shoulder when he moved. His significant other looked at it and felt something under the skin. One week ago, the area became red and started to drain white fluid, which prompted them to present to the [place] ED. At the ED, he received an I&D and one week of Doxycycline for an infected sebaceous cyst. Since the cyst was infected, they felt that he should be on abx before removing the cyst completely. The patient states that he has had one cyst a few years ago. He is currently on apixaban for heart rhythm and does not have any implantable cardiac devices. Problem List: Active problems - Computerized Problem List is the source for the followin. Benign hypertensive renal disease 2. Paroxysmal atrial fibrillation 3. Long-term current use of anticoagulant 4. Chronic Kidney Disease Stage 3 (SCT 084279622) 5. Chronic pain 6. Long-term current use of oral hypoglycemic medication 7. Exertional dyspnea 8. Anemia 9. 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 Acquired trigger finger of left index finger 11. Diabetic neuropathy 12. Jay's Esophagus (SCT 421880768) repeat due 01/2021 13. Adenomatous polyp of [...] 20. Lumbar spondylosis with myelopathy (SNOMED CT 45857355) 21. Personal History of Venous Thrombosis and Embolism 22. Obstructive sleep apnea syndrome (SNOMED CT 75534644) 23. Obesity (SNOMED CT 617984954) 24. Mixed hyperlipidemia (SNOMED CT 254499475) 25. Benign hypertensive renal disease Pertinent Medical Hx: Atrial Fibrillation Sebaceous Cyst Removal Hypertension Past Surgical History: Laparoscopic Cholecystectomy Aug 19 2021 Extracapsular Cataract Extraction with Posterior Chamber Introcular Lens Implant, right eye Left Eye Extracapsular Cataract Extraction with Posterior Chamber Intraocular Lens Implant Medication List: Active Outpatient Medications (including Supplies): Active Outpatient Medications Status 1) ACCU-CHEK GUIDE (GLUCOSE) TEST STRIP USE 1 STRIP TO TEST ACTIVE BLOOD SUGAR DIRECTED LIMIT 50 STRIPS EVERY 90 DAYS 2) APIXABAN 5MG TAB TAKE ONE-HALF TABLET BY MOUTH TWICE A DAY ACTIVE -CALL ANTICOAGULATION CLINIC [phone] WITH QUESTIONS OR CONCERNS Indication: TO THIN BLOOD 3) ATORVASTATIN CALCIUM 40MG TAB TAKE ONE-HALF TABLET BY MOUTH ACTIVE DAILY FOR CHOLESTEROL 4) CARVEDILOL 25MG TAB TAKE ONE TABLET BY MOUTH TWICE A DAY ACTIVE Indication: FOR HEART/BLOOD PRESSURE 5) CHLORTHALIDONE 25MG TAB TAKE ONE TABLET BY MOUTH DAILY ACTIVE Indication: FOR BLOOD PRESSURE 6) DOXYCYCLINE HYCLATE 100MG TAB TAKE ONE TABLET BY MOUTH TWICE ACTIVE A DAY Indication: FOR SKIN OR EYE CONDITION 7) FLUOXETINE HCL 20MG CAP TAKE ONE CAPSULE BY MOUTH DAILY FOR ACTIVE MOOD 8) GABAPENTIN 300MG CAP TAKE TWO CAPSULES BY MOUTH TWICE A DAY ACTIVE Indication: FOR NERVE PAIN 9) [id number] PENTOXIFYLLINE SA 400MG/PBO TAKE ONE TABLET BY ACTIVE MOUTH TWICE A DAY WITH FOOD. SWALLOW WHOLE-DO NOT CHEW, CRUSH OR CUT 10) LANCET,SOFTCLIX USE LANCET AFFECTED AREA DIRECTED ACTIVE 11) LISINOPRIL 40MG TAB TAKE ONE TABLET BY MOUTH DAILY FOR BLOOD ACTIVE PRESSURE/HEART 12) METFORMIN HCL 500MG TAB TAKE ONE TABLET BY MOUTH TWICE A DAY ACTIVE FOR DIABETES Indication: FOR BLOOD SUGAR 13) PANTOPRAZOLE NA 40MG EC TAB TAKE ONE TABLET BY MOUTH TWICE A ACTIVE DAY 30 MINUTES BEFORE A MEAL FOR STOMACH, 30 MINUTES BEFORE A MEAL. TAKE ON AN EMPTY STOMACH. 14) SPIRONOLACTONE 25MG TAB TAKE ONE TABLET BY MOUTH DAILY FOR ACTIVE (S) BLOOD PRESSURE/HEART Allergies: Patient has answered NKA ROS: Cardiac: No chest pain Respiratory: No shortness of Breath Other pertinent: Pain in right upper shoulder associated with raised nodule. Redness and fluid drainage from nodule. Constitutional: Well appearing. No fevers Physical Exam: Respiratory: Normal respiratory Effort Skin, including measurements of any lesions: Erythematous, raised mass approximately 2 inches in diameter in upper posterior right shoulder. Is not currently draining fluid. Code Status: DNR/DNRA Assessment and Plan: Gil Shelby is an 78 year old man that presents to general surgery for management of sebaceous cyst, previously I&D'd and treated with one week of oral doxycycline. Although patient is currently on apixaban, he expresses the desire to completely remove the cyst today, even with the increased risk of bleeding. As he has already completed one week of abx and the cyst does not appear to have an active, purulent infection, will excise the sebaceous cyst in clinic today. Follow-up: see procedure note from today /arleth/ GILDA ASTORGA Signed: 10/29/2024 15:21 /arleth/ Sole Armas MD Attending Physician Cosigned: 10/30/2024 10:17 10/30/2024 ADDENDUM STATUS: COMPLETED I was present for the medical student history taking and examination. I independently performed the history, physical examination, and medical decision making. I hereby attest to the accuracy of the student's note as to history, physical examination, and medical decision making, any exceptions or corrections (if present) are noted below. Left posterior shoulder epidermal cystplan for excision in clinic Benefits and risks of surgery including infection and wound opening up were explained to the patient and he wishes to proceed /arleth/ Sole Armas MD Attending Physician Signed: 10/30/2024 10:18 11/04/2024 ADDENDUM STATUS: COMPLETED rtc placed /arleth/ RADHA BEASLEY General Surgery Freight Car Cleaner Signed: 11/04/2024 08:46 Receipt Acknowledged By: * AWAITING SIGNATURE * YARIEL CUNNINGHAM,GILDA CRISTOBAL-D [facility]
--- OUTSIDE RECORDS SUMMARY | 2024-11-04 07:00 | XMS_ITS | Encounter Summary ---
Author Name [facility] [place] [facility] [place] Address [address] [place] [address] Care Team Providers Care Disk And Tape Machine Tender Name Role Phone ESTELA DEJAN Primary Care [...] RISSA SHIRLEY Mar 04, 2012 RISSA RODRIGUEZ [id number] HERON,NORAM WELLINGTON PATIENT [employer] [facility] (WNR) MEDICARE ADVANTAGE [facility](W NR) Jul 30, 2017 [id number] HERON,NORMA WELLINGTON PATIENT [employer] [facility] (WNR) MEDICARE ADVANTAGE [facility] (WNR) Jul 30, 2017 [id number] HERON,NORMA WELLINGTON PATIENT [employer] [facility] (WNR) FORMERLY [facility] [employer]GANIZ MEDIC ARE BRAULIO Connell Jul 30, 2012 [id number] NORMA SHELBY PATIENT MEDICARE (WNR) MEDICARE (M) PART A Jul 30, 2017 PART A [id number] NORMA SHELBY PATIENT MEDICARE (WNR) MEDICARE (M) PART B Jul 30, 2017 PART B [id number] NORMA SHELBY PATIENT MEDICARE PART D (WNR) PRESCRIPT ION PART D Jul 30, 2017 PART D [id number] NORMA SHELBY PATIENT MEDICARE PART D (WNR) MEDICARE (M) PART D Jul 30, 2017 PART D [id number] NORMA SHELBY PATIENT MEDICARE PART D (WNR) MEDICARE (M) PART D Jul 30, 2017 PART D [id number] NORMA SHELBY PATIENT MEDICARE PART D (WNR) MEDICARE (M) PART D Jul 30, 2012 PART D [id number] NORMA SHELBY PATIENT Selected Encounter This section includes the information on record at [place] for the Encounter. Date/Time Encounter Type Encounter Description Reason Provider Source Nov 04, 2024 11:00 AM COMPRE OPH EXAM EST PT 1/> OPTOMETRY ICD-10-CM E11.9 Type 2 diabetes mellitus without complications RAIMUNDO LOUISE Abi Encounter Template Text not used by [place] Assessments - Encounter Diagnoses This section includes the primary and secondary diagnoses documented for the Encounter. Date/Time Primary/Secondary Diagnosis Diagnosis Name Provider Source Nov 04, 2024 11:50 AM PRIMARY Type 2 diabetes mellitus without complications [facility] Nov 04, 2024 11:50 AM SECONDARY Cataract extraction status, left eye [facility]DO LOU[facility] Nov 04, 2024 11:50 AM SECONDARY Cataract extraction status, right eye [facility] LOU[facility] Nov 04, 2024 11:50 AM SECONDARY Dry eye syndrome of bilateral lacrimal glands RAIMUNDO LOUISE [facility] Plan of Treatment: Future Appointments (+ [...] The data comes from all [place] treatment [facility]. Appointment Date/Time Appointment Type Appointme nt Facility Name Nov 12, 2024 10:20 AM AMBULATORY - SURGERY [place] [facility] December 10, 2024 10:20 AM AMBULATORY - SURGERY [place] [facility] December 24, 2024 08:30 AM AMBULATORY - MEDICINE [place] [facility] Jan 28, 2025 01:30 PM AMBULATORY - REHAB MEDICIN E [facility] Feb 04, 2025 09:00 AM AMBULATORY - SURGERY [place] [facility] Mar 16, 2025 11:30 AM AMBULATORY - NONE [place] [facility] Mar 18, 2025 09:30 AM AMBULATORY - MEDICINE [facility] [facility] Apr 29, 2025 09:30 AM AMBULATORY - MEDICINE [place] [facility] May 06, 2025 08:40 AM AMBULATORY - SURGERY [place] [facility] Social History: Smoking Status (Most [...] 09, 2024 10:30 AM VA-TOBACCO FORMER USER [facility] Tobacco Use History This section includes a history of the smoking, or tobacco-related health factors, that were collected on or before the date of the Encounter. The data comes from the [place] facility where the Encounter took place. Date/Time Smoking Status/Tobacco Use Comment F acility Apr 09, 2024 10:30 AM VA-TOBACCO QUIT 15 YRS OR MORE [facility] May 08, 2023 02:30 PM VA-TOBACCO FORMER USER [facility] May 08, 2023 02:30 PM VA-TOBACCO QUIT 5 TO < 15 YRS [facility] May 26, 2022 11:00 AM VA-TOBACCO FORMER USER [facility] May 26, 2022 11:00 AM VA-TOBACCO QUIT 5 TO < 15 YRS [facility] Jun 22, 2021 10:00 AM VA-TOBACCO FORMER USER [facility] Jun 22, 2021 10:00 AM VA-TOBACCO QUIT 5 TO < 15 YRS [facility] Jul 05, 2020 11:00 AM VA-TOBACCO FORMER USER [facility] Jul 05, 2020 11:00 AM VA-TOBACCO QUIT 5 TO < 15 YRS [facility] Apr 25, 2019 02:40 PM VA-TOBACCO FORMER USER [facility] Apr 25, 2019 02:40 PM VA-TOBACCO QUIT 5 TO < 15 YRS [facility] Jun 27, 2018 09:46 AM VA-TOBACCO FORMER USER [facility] Jun 27, 2018 09:46 AM VA-TOBACCO QUIT 5 TO < 15 YRS [facility] Jul 27, 2017 09:25 AM V9 LIFETIME NON-USER OF TOBACCO [facility] Aug 22, 2016 08:58 AM V9 LIFETIME NON-USER OF TOBACCO [facility] Sep 14, 2015 09:30 AM V9 LIFETIME NON-USER OF TOBACCO [facility] Sep 03, 2014 07:39 AM V9 LIFETIME NON-USER OF TOBACCO [facility] Apr 22, 2013 09:17 AM V9 QUIT TOBACCO IN THE LAST 12 MONTHS [facility] Jun 14, 2012 02:12 PM V9 QUIT TOBACCO >1 2 MO & <7 YRS AGO [facility] Feb 07, 2011 03:23 PM V9 QUIT TOBACCO >7 YEARS AGO [facility] Jan 20, 2010 02:15 PM V9 QUIT TOBACCO >7 YEARS AGO [facility] Pathology Reports: +/- 30 days of [...] comes from all [place] treatment facilities. Date/Time Pathology Report Provider Source Nov 04, 2024 03:53 PM LR SURGICAL PATHOL OGY REPORT: LOCAL TITLE: LR SURGICAL PATHOLOGY REPORT DATE OF NOTE: NOV 04, 2024@15:53:05 ENTRY DATE: NOV 04, 2024@15:53:05 AUTHOR: KIMBERLI DUTTON COSIGNER: URGENCY: STATUS: COMPLETED $APHDR Reporting Lab: [facility] [CLIA# [id number]] [address] [place] [address] - - - - - - - [...] placed in two cassettes). CPT CODE - 22700 MICROSCOPIC EXAM/DIAGNOSIS: Skin, right shoulder, shave biopsy: -Ruptured epidermal inclusion cyst. /arleth/ KIMBERLI DUTTON CHIEF,PATHOLOGY [facility] [place] Signed Nov 04, 2024@15:53 Performing Laboratory: Surgical Pathology Report Performed By: [facility] [CLIA# [id number]] [address] [place] [address] $FTR - - - - - - - - - - - - - - - - - - - - - - - - - - - - - - - - - - - - - - - - (End of report) KIMBERLI DUTTON MD [facility] Date Nov 04, 2024 - - - - - - - - - - - - - - - - - - - - - - - - - - - - - - - - - - - - - - - - CHELSEY SHELBY STANDARD FORM 515 ID:[id number] SEX:M :1945 AGE: 78 LOC:PATH PCP: Dejan Gutierrez MD /arleth/ KIMBERLI DUTTON CHIEF,PATHOLOGY [facility] [place] Signed: 11/04/2024 15:53 KIMBERLI DUTTON-[facility] Encounter Notes: All associated encounter notes This section contains the clinical notes associated to the Encounter. Date/Time Encounter Note(s) Provider Source Nov 04, 2024 11:43 AM STUDENT NOTE: LOCAL TITLE: MEDICAL STUDENT SOAP NOTE STANDARD TITLE: STUDENT NOTE DATE OF NOTE: NOV 04, 2024@11:43 ENTRY DATE: NOV 04, 2024@11:44:01 AUTHOR: ALEK BARTHOLOMEW EXP COSIGNER: RAIMUNDO LOUISE URGENCY: STATUS: COMPLETED I participated in this patient care encounter with Dr. Louise /arleth/ ALEK BARTHOLOMEW Optometry Student Signed: 11/04/2024 11:44 /chema LOUISE Chief of Optometry Cosigned: 11/04/2024 11:51 ALEK BARTHOLOMEW [facility] Nov 04, 2024 10:47 AM OPTOMETRY NOTE: LOCAL TITLE: OPTOMETRY ATTENDING NOTE STANDARD TITLE: OPTOMETRY NOTE DATE OF NOTE: NOV 04, 2024@10:47 ENTRY DATE: NOV 04, 2024@10:47:41 AUTHOR: RAIMUNDO LOUISE EXP COSIGNER: URGENCY: STATUS: COMPLETED Type of exam: Comprehensive Chief complaint/Reason for visit: 78YO WHITE patient presents for diabetic eye exam. Pt reports stable vision, but has had to adjust frames 3-4 times since he got them last year, and they keep sliding down his face. Pt says that his eyes water intermittantly, but doesn't use any drops. Would like some mailed to him. (-) Flashes, floaters, pain Bgl range: pt doesn't check Ocular History: JULIANA: 10/20 (+) Eye Injury: piece of steel in OD 40 yrs ago (+) Eye Surgery/Laser Tx: Cataract Surgery OU (-) Eye Infection: (+) Other: MISHA, PP OU (+) History of Cancer Type: basal skin Date of diagnosis: a long time ago Treatment: removal (-) History of Known CVA (+) Use of anticoagulant, apixaban Ocular Medications: none (-) History of allergies to ocular medications Family history: None Smoking history: (+) Previous smoker Duration, packs per day: started at 15 y/o, 1 ppd When did pt quit smokin Diabetes History: Date of Dx: 2017 Last HemA1C: Z GLYCOHEMOGLOBIN (HPLC) 04/09/24 09:50 6.4 05/08/23 13:48 6.4 12/27/22 13:24 6.3 Additional Diabetic retinopathy risk factors: (+) Hypertension (-) Proteinuria (+) Dyslipidemia (-) Poor control of diabetes (-) Currently (-) Sedentary lifestyle/Lack of exercise Additional Risk Factors for Macular Degeneration: (+) Patient is over age 60 (+) Obesity (Centers for Disease Control and Prevention definition: BMI of 30 or more) (+) Pt has heritage (-) Female sex Additional Glaucoma Risk Hx: (-) over age 40 (+) Pt is over age 60 (-) Pt has [place] heritage Medical history: Active problems - Computerized Problem List is the source for the followin. Benign hypertensive renal disease 2. Paroxysmal atrial fibrillation 3. Long-term current use of anticoagulant 4. Chronic Kidney Disease Stage 3 (SCT 260861840) 5. Chronic pain 6. Long-term current use of oral hypoglycemic medication 7. Exertional dyspnea 8. Anemia 9. 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 Acquired trigger finger of left index finger 11. Diabetic neuropathy 12. Jay's Esophagus (SCT 905934880) repeat due 01/2021 13. Adenomatous polyp of [...] 20. Lumbar spondylosis with myelopathy (SNOMED CT 94783620) 21. Personal History of Venous Thrombosis and Embolism 22. Obstructive sleep apnea syndrome (SNOMED CT 09391788) 23. Obesity (SNOMED CT 070473455) 24. Mixed hyperlipidemia (SNOMED CT 759870629) 25. Benign hypertensive renal disease Allergies: Patient has answered NKA Medications: Active Outpatient Medications (including Supplies): Active Outpatient Medications Status 1) ACCU-CHEK GUIDE (GLUCOSE) TEST STRIP USE 1 STRIP TO TEST ACTIVE BLOOD SUGAR DIRECTED LIMIT 50 STRIPS EVERY 90 DAYS 2) APIXABAN 5MG TAB TAKE ONE-HALF TABLET BY MOUTH TWICE A DAY ACTIVE -CALL ANTICOAGULATION CLINIC [phone] WITH QUESTIONS OR CONCERNS Indication: TO THIN [...] DAY ACTIVE Indication: FOR NERVE PAIN 9) INV-[id number] PENTOXIFYLLINE SA 400MG/PBO TAKE ONE TABLET BY [...] BY MOUTH DAILY FOR ACTIVE BLOOD PRESSURE/HEART Medication list reviewed by: Charles Medication list is accurate per patient/doctor review: Printed copy of medication list provided to patient and/or significant other and reviewed: Yes Explained to patient and/or significant other the importance of keeping providers updated on medication changes and to carrying an updated list of medication at all times in case of an emergency situation. Yes Medication changes reviewed, patient/significant other verbalized understanding, provided updated list. VA: sc OU-20/50-2 cc 20/30 20/25-2 Habitual Rx: OD: -1.50-0.37d303 OS: +0.25-1.11k059 Add: +2.50 EOMs: Full and unrestricted OU, No Diplopia Confrontation VF: Full to finger count OU Pupils: PERRL, no APD Refraction: OD: -1.25-0.10s952 20/25 OS: plano-1.24e526 20/25 Add: +2.50 Final RX: Same as above SLIT LAMP EXAM: Lids/lashes: 1+ MGD and saponification OU; tr bleph OU; papilloma LLL medially Conj/sclera: Clear/white OU Cornea: CE scars OU; small circular scar IT OS; 1+ inf SPK OU Anterior chamber: D/q OU Iris/pupil: Flat/round OU, No rubeosis OU Informed consent obtained prior to instillation of all diagnostic pharmaceutical agents. IOPs (Goldmann applanation): igt Altafluor Benox OD, OS OD: 10 OS: 10 Time: 1104 Angles: open gr 4+ N/T VH OU OCULAR HEALTH: igt 1% Tropicacyl OD, igt 1% Tropicacyl OS, igt 2.5% Phenylephrine OD, igt 2.5% Phenylephrine OS Time: 1107 Lenses used for viewinD, 20D LENS: OD: PCIOL well centered, tr PCO inf OS: PCIOL well centered, clear C/D: H/ V OD: 0.45/0.45 NRRI, extensive PPA 360; No NVD, No Hemes, No Pallor, No Edema OS: 0.40/0.40 NRRI, extensive PPA 360; No NVD, No Hemes, No Pallor, No Edema Size: average MACULA: OD: Flat, even pigment, No DME OS: Flat, even pigment, No DME VESSELS: OD: 2/3 AV OS: 2/3 AV POSTERIOR POLE: OD: Clear, No NVE OS: Clear, No NVE VITREOUS: OD: PVD OS: PVD PERIPHERY: OD: No holes, tears or breaks OS: No holes, tears or breaks A: 1. Type 2 Diabetes Mellitus without diabetic retinopathy OU - (-) diabetic macular edema OU 2. Dry Eye Syndrome OU -BCVA 20/25 OD and OS 3. Pseudophakia OU P: 1. Discussed with patient the importance of good blood pressure, blood sugar, cholesterol and lipid control. Discussed with patient the importance of regular, preventative eye screenings in the future to reduce risk of vision loss secondary to diabetes. Monitor per peer review guidelines. 2. Patient educated on the use of VA artificial tears 3-4 times per day OU. Patient educated regarding proper lid hygiene and warm compresses daily OU. Patient to RTC should symptoms worsen or not improve with supportive intervention. 3. Pt ed on today's findings. Pt will check optical for new frame that fits on his face better. New SPRx released. The [place]/caregiver voiced understanding of topics covered/discussed in today's visit. Next visit: 12 months with Attending 2 for Diab Exam /es/ RAIMUNDO LOUISE Chief of Optometry Signed: 11/04/2024 11:51 RAIMUNDO LOUISE [facility]
--- OUTSIDE RECORDS SUMMARY | 2024-11-04 09:40 | XMS_ITS | Encounter Summary ---
Author Name [facility] Organization [facility] Address [address] [place] [address] Care Team Providers Care Wagon Driver Name Role Phone ESTELA DEJAN Primary Care [...] RISSA SHIRLEY Mar 04, 2012 RISSA RODRIGUEZ [id number] HERONNORMA RICHARDSE PATIENT [employer] [facility] (WNR) MEDICARE ADVANTAGE [facility](W NR) Jul 30, 2017 [id number] [phone] HERON,NORMA WELLINGTON PATIENT [employer] [facility] (WNR) MEDICARE ADVANTAGE [facility] (WNR) Jul 30, 2017 [id number] [phone] EHRON,NORMAJoel GODOYE PATIENT [employer] [facility] (WNR) [facility] MEDIC ARE BRAULIO Connell Jul 30, 2012 [id number] [phone] NORMA SHELBY PATIENT MEDICARE (WNR) MEDICARE (M) PART A Jul 30, 2017 PART A [id number] NORMA SHELBY PATIENT MEDICARE (WNR) MEDICARE (M) PART B Jul 30, 2017 PART B [id number] NORMA SHELBY PATIENT MEDICARE PART D (WNR) PRESCRIPT ION PART D Jul 30, 2017 PART D [id number] NORMA SHELBY PATIENT MEDICARE PART D (WNR) MEDICARE (M) PART D Jul 30, 2017 PART D [id number] [phone] NORMA SHELBY PATIENT MEDICARE PART D (WNR) MEDICARE (M) PART D Jul 30, 2017 PART D [id number] [phone] NORMA SHELBY PATIENT MEDICARE PART D (WNR) MEDICARE (M) PART D Jul 30, 2012 PART D [id number] NORMA SHELBY PATIENT Selected Encounter This section includes the information on record at MD for the Encounter. Date/Time Encounter Type Encounter Description Reason Provider Source Nov 04, 2024 01:40 PM OFFICE O/P EST LOW 20 MIN PODIATRY ICD-10-CM E11.40 Type 2 diabetes mellitus with diabetic neuropathy, BREN Mathew Abi Encounter Template Text not used by MD Assessments - Encounter Diagnoses This section includes the primary and secondary diagnoses documented for the Encounter. Date/Time Primary/Secondary Diagnosis Diagnosis Name Provider Source Nov 04, 2024 02:03 PM PRIMARY Type 2 diabetes mellitus with diabetic neuropathy, [facility] Nov 04, [facility] 02:03 PM SECONDARY Other hammer toe(s) (acquired), right foot BREN FIGUEROA [facility] Nov 04, 2024 02:03 PM SECONDARY Tinea unguium BREN FIGUEROA [facility] Plan of Treatment: Future Appointments (+ 6 months) and Future Tests (+/- 45 days) The Plan of Treatment section includes future care activities for the patient from all MD treatmentfacilities. This section includes future appointments and future orders which are active, pending or scheduled. Future Appointments This section includes appointments that were scheduled to occur 6 months from the date of the Encounter, up to a maximum of 20 appointments. The data comes from all MD treatment facilities. Appointment Date/Time Appointment Type Appointme nt Facility Name Nov 12, 2024 10:20 AM [facility] December 10, 2024 10:20 AM [facility] December 24, 2024 08:30 AM [facility] Jan 28, 2025 01:30 PM AMBULATORY - REHAB MEDICIN E [facility] Feb 04, 2025 09:00 AM AM[facility] - [facility] [facility] Mar 16, 2025 11:30 AM [facility] - N[facility] Mar 18, 2025 09:30 AM [facility] Apr 29, 2025 09:30 AM [facility] May 06, 2025 08:40 AM AMBULATORY - SURGERY [place] [facility] Social History: Smoking Status (Most current) and Tobacco Use (All prior to encounter date) This section includes the most current, and the historical, smoking and tobacco- related health factors from the MD facility where the Encounter took place. Current Smoking Status This section includes the most current smoking, or tobacco-related health factor, from the MD facility where the Encounter took place. Date/Time Current Smoking Status Comment Facil ity Apr 09, 2024 10:30 AM VA-TOBACCO FORMER USER [facility] Tobacco Use History This section includes a history of the smoking, or tobacco-related health factors, that were collected on or before the date of the Encounter. The data comes from the MD facility where the Encounter took place. Date/Time Smoking Status/Tobacco Use Comment F acility Apr 09, 2024 10:30 AM VA-TOBACCO QUIT 15 YRS OR MORE [facility] May 08, 2023 02:30 PM VA-TOBACCO FORMER USER [facility] May 08, 2023 02:30 PM VA-TOBACCO QUIT 5 TO < 15 YRS [facility] May 26, 2022 11:00 AM VA-TOBACCO FORMER USER [facility] May 26, 2022 11:00 AM VA-TOBACCO QUIT 5 TO < 15 YRS [facility] Jun 22, 2021 10:00 AM VA-TOBACCO FORMER USER [facility] Jun 22, 2021 10:00 AM VA-TOBACCO QUIT 5 TO < 15 YRS [facility] Jul 05, 2020 11:00 AM VA-TOBACCO FORMER USER [facility] Jul 05, 2020 11:00 AM VA-TOBACCO QUIT 5 TO < 15 YRS [facility] Apr 25, 2019 02:40 PM VA-TOBACCO FORMER USER [facility] Apr 25, 2019 02:40 PM VA-TOBACCO QUIT 5 TO < 15 YRS [facility] Jun 27, 2018 09:46 AM VA-TOBACCO FORMER USER [facility] Jun 27, 2018 09:46 AM VA-TOBACCO QUIT 5 TO < 15 YRS [facility] Jul 27, 2017 09:25 AM V9 LIFETIME NON-USER OF TOBACCO [facility] Aug 22, 2016 08:58 AM V9 LIFETIME NON-USER OF TOBACCO [facility] Sep 14, 2015 09:30 AM V9 LIFETIME NON-USER OF TOBACCO [facility] Sep 03, 2014 07:39 AM V9 LIFETIME NON-USER OF TOBACCO [facility] Apr 22, 2013 09:17 AM V9 QUIT TOBACCO IN THE LAST 12 MONTHS [facility] Jun 14, 2012 02:12 PM V9 QUIT TOBACCO >1 2 MO & <7 YRS AGO [facility] Feb 07, 2011 03:23 PM V9 QUIT TOBACCO >7 YEARS AGO [facility] Jan 20, 2010 02:15 PM V9 QUIT TOBACCO >7 YEARS AGO [facility] Pathology Reports: +/- 30 days of [...] the Encounter. The data comes from all MD treatment facilities. Date/Time Pathology Report Provider Source Nov 04, 2024 03:53 PM LR SURGICAL PATHOL OGY REPORT: LOCAL TITLE: LR SURGICAL PATHOLOGY REPORT DATE OF NOTE: NOV 04, 2024@15:53:05 ENTRY DATE: NOV 04, 2024@15:53:05 AUTHOR: KIMBERLI DUTTON COSIGNER: URGENCY: STATUS: COMPLETED $APHDR Reporting Lab: [facility] [IA# [id number]] [address] [place] [phone] - - - - - - - [...] placed in two cassettes). CPT CODE - 64801 MICROSCOPIC EXAM/DIAGNOSIS: Skin, right shoulder, shave biopsy: -Ruptured epidermal inclusion cyst. /arleth/ KIMBERLI DUTTON CHIEF,PATHOLOGY [facility] Signed Nov 04, 2024@15:53 Performing Laboratory: Surgical Pathology Report Performed By: [facility] [CLIA# [id number]] [address] [place] [address] $FTR - - - - - - - - - - - - - - - - - - - - - - - - - - - - - - - - - - - - - - - - (End of report) KIMBERLI DUTTON MD klp Date Nov 04, 2024 - - - - - - - - - - - - - - - - - - - - - - - - - - - - - - - - - - - - - - - - CHELSEY SHELBY STANDARD FORM 515 ID:[id number] SEX:M :1945 AGE: 78 LOC:PATH PCP: Dejan Gutierrez MD /arleth/ KIMBERLI DUTTON CHIEF,PATHOLOGY [facility] Signed: 11/04/2024 15:53 KIMBERLI DUTTON-D [facility] Encounter Notes: All associated encounter notes This section contains the clinical notes associated to the Encounter. Date/Time Encounter Note(s) Provider Source Nov 04, 2024 01:46 PM PODIATRY ATTENDING NOTE: LOCAL TITLE: PODIATRY ATTENDING NOTE STANDARD TITLE: PODIATRY ATTENDING NOTE DATE OF NOTE: NOV 04, 2024@13:46 ENTRY DATE: NOV 04, 2024@13:46:42 AUTHOR: BREN FIGUEROA COSIGNER: URGENCY: STATUS: COMPLETED SOAP Note SUBJECTIVE: The patient is a 78 year old MALE. Diabetic vet RTC for at risk foot eval and nail care, h/o numbness b/l feet. Active problems - Computerized Problem List is the source for the followin. Benign hypertensive renal disease 2. Paroxysmal atrial fibrillation 3. Long-term current use of anticoagulant 4. Chronic Kidney Disease Stage 3 (SCT 243523623) 5. Chronic pain 6. Long-term current use of oral hypoglycemic medication 7. Exertional dyspnea 8. Anemia 9. 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 Acquired trigger finger of left index finger 11. Diabetic neuropathy 12. 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 Adenomatous polyp of [...] 20. Lumbar spondylosis with myelopathy (SNOMED CT 98755237) 21. Personal History of Venous Thrombosis and Embolism 22. Obstructive sleep apnea syndrome (SNOMED CT 86637677) 23. Obesity (SNOMED CT 705211107) 24. Mixed hyperlipidemia (SNOMED CT 316352803) 25. Benign hypertensive renal disease ALLERGIES: Patient has answered NKA Food allergies: None known VITALS: SVS - Vital Signs Selected Measurement DT BP TEMP RESP PULSE POx F(C) (L/MIN)(%) 10/20/2024 11:51 132/80 98.5(36.9) 14 82 Measurement DT WEIGHT LB(KG)[BMI] 10/20/2024 11:51 FOOT RISK LEVEL: MEDICATION RECONCILIATION: Reviewed current [...] this patient: ===== +POD RISK SCORE+ --LEVEL 2 - (MODERATE RISK) Sensory loss per monofilament and may have one additional finding below Diminished circulation Foot deformity -POD RISK SCORE- Patient currently being followed by Podiatry or other foot care provider. LEVEL 2 FOOT EDUCATION: 1. Advised patient that therapeutic footwear and orthosis are required to accommodate foot deformities, to compensate for soft tissue atrophy, and to evenly distribute plantar foot pressures. 2. Advised patient not to walk barefoot. [...] difficulty cleansing feet No Patient walks barefoot Never Instructed on the importance of not walking barefoot FOOT RISK LEVEL: 3 ROS: pertinent to chief complaint & relative to above medical history. PE: AAOX3,NAD, pleasant Lower Extremity Dermatological Exam: Pt presents diabetic shoes and socks with inserts. 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 IMPRESSION: DM II neuropathy Onychomycosis x 9 Bunions bilateral, asymptomatic Hammertoes bilateral, asymptomatic. - 4th toe traumatically amputated (hea PLAN: I discussed current findings, diagnoses and treatment options this clinic visit. I answered his questions to his satisfaction. Continue proper diabetic foot care discussed (avoid barefoot, inspect feet daily, clean and dry between toes, maintain good blood sugar control, look inside shoes/sweep hand inside all the way to the toes before donning them, wear clean socks daily, etc). Debrided fungal toenails x 10 manually and w/ electrical grinding in length,girth and thickness down to nail beds w/o incident ivy [place] applied and dispensed 1 tube of Remedy Phytoplex cream to feet; instructed to use daily, but not between toes. Continue therapeutic shoes in order to accommodate significant pedal deformity in an at risk patient. order therapeutic shoes in order to acomodate significant pedal deformity in an at risk patient. RTC: 3 mos, arnie clinic call earlier if problems arise, 12 months annual exam /arleth/ BREN FIGUEROA ATTENDING PHYSICIAN Signed: 11/04/2024 14:03 BREN FIGUEROA [facility] Nov 04, 2024 01:40 PM PODIATRY OUTPATIENT NOTE: LOCAL TITLE: PODIATRY CLINIC SPECIALTY MOLDER NOTE STANDARD TITLE: PODIATRY OUTPATIENT NOTE DATE OF NOTE: NOV 04, 2024@13:40 ENTRY DATE: NOV 04, 2024@13:40:54 AUTHOR: IVY NAVARRETEIGNER: URGENCY: STATUS: COMPLETED LOWER EXTREMITY EXAM: Nails: aseptic debridement of the nails x 9 of lengh/girth/thickness via manual & eletric instrumentation. Skin: Interspaces clear and intact Appearance: Skin intact Vascular Evaluation: Sens Lio Filament; Decreased with changes of neuropathy noted B/1 feet muscle strength intact IMPRESSION: 1. Tinea Unguium PLAN: Nails debrided in length and thickness entire nail bed all digits B/L using manual and mechanical techniques. Reviewed foot education and importance of proper foot care with patient RTC: /arleth/ IVY NAVARRETE POWER SCREWDRIVER OPERATOR STAFF POWER SCREWDRIVER OPERATOR Signed: 11/04/2024 13:41 IVY NAVARRETE [facility] Nov 04, 2024 01:40 PM SURGERY NURSING NOTE: LOCAL TITLE: SURGERY CLINIC INTAKE NOTE STANDARD TITLE: SURGERY NURSING NOTE DATE OF NOTE: NOV 04, 2024@13:40 ENTRY DATE: NOV 04, 2024@13:40:15 AUTHOR: IVY NAVARRTEEIGNER: URGENCY: STATUS: COMPLETED The patient was given [...] of active outpatient prescriptions dispensed from this MD (local) and dispensed from another MD or [facility] facility (remote) as well as inpatient orders (local pending and active), local clinic medications, locally documented non-VA medications, and local prescriptions that have or been discontinued in the past 90 days. Non-VA Meds Last Documented On: May 08, 2019 NOTE The display of VA prescriptions dispensed from another MD or [facility] facility (remote) is limited to active outpatient prescription entries matched to National Drug File at the originating site and may not include some items such as investigational drugs, compounds, etc. NOT INCLUDED IN THIS LIST: Medications self-entered by the patient into personal health records (i.e. [employer]) are NOT included in this list. Non-VA medications documented outside this MD, remote inpatient orders (regardless of status) and remote clinic medications are NOT included in this list. The patient and provider must always discuss medications the patient is taking, regardless of where the medication was dispensed or obtained. OUTPT APIXABAN 5MG TAB (Status = Active) TAKE ONE-HALF TABLET BY MOUTH TWICE A DAY TO THIN BLOOD -CALL [facility]TICOAGULATION CLINIC [phone] WITH QUESTIONS OR CONCERNS Rx# [id number] Last Released: 10/28/24 Qty/Days Supply: Rx Expiration Date: 04/11/25 Refills Remainin Indication: TO THIN BLOOD OUTPT ARTIFICIAL TEARS POLYVINYL ALCOHOL (Status = Pending) ALCOHOL PUT ONE DROP IN BOTH EYES TWICE A DAY Login Date: 11/04/24 Qty/Days Supply: Refills Ordered: 4 OUTPT ATORVASTATIN CALCIUM 40MG TAB (Status = Active) TAKE ONE-HALF TABLET BY MOUTH DAILY FOR CHOLESTEROL Rx# [id number] Last Released: 09/13/24 Qty/Days Supply: 45/ Rx Expiration Date: 05/10/25 Refills Remainin OUTPT CARVEDILOL 25MG TAB (Status = Active) TAKE ONE TABLET BY MOUTH TWICE A DAY FOR HEART/BLOOD PRESSURE Rx# [id number] Last Released: 10/14/24 Qty/Days Supply: 180/90 Rx Expiration Date: 05/21/25 Refills Remainin Indication: FOR HEART/BLOOD PRESSURE OUTPT CHLORTHALIDONE 25MG TAB (Status = Active) TAKE ONE TABLET BY MOUTH DAILY FOR BLOOD PRESSURE Rx# [id number] Last Released: 05/09/24 Qty/Days Supply: 90/90 Rx Expiration Date: 05/10/25 Refills Remainin Indication: FOR BLOOD PRESSURE OUTPT DOXYCYCLINE HYCLATE 100MG TAB (Status = Active) TAKE ONE TABLET BY MOUTH TWICE A DAY Rx# [id number] Last Released: 10/20/24 Qty/Days Supply: 09/02 Rx Expiration Date: 11/19/24 Refills Remainin Indication: FOR SKIN OR EYE CONDITION OUTPT FLUOXETINE HCL 20MG CAP (Status = Active) TAKE ONE CAPSULE BY MOUTH DAILY FOR MOOD Rx# [id number] Last Released: 05/09/24 Qty/Days Supply: 90/ Rx Expiration Date: 05/10/25 Refills Remainin OUTPT GABAPENTIN 300MG CAP (Status = Active) TAKE TWO CAPSULES BY MOUTH TWICE A DAY FOR NERVE PAIN Rx# [id number] Last Released: 10/21/24 Qty/Days Supply: 120/30 Rx Expiration Date: 06/12/25 Refills Remainin Indication: FOR NERVE PAIN OUTPT [id number] PENTOXIFYLLINE SA 400MG/PBO (Status = ) TAKE ONE TABLET BY MOUTH TWICE A DAY WITH FOOD. SWALLOW WHOLE-DO NOT CHEW, CRUSH OR CUT Rx# [id number] Last Released: 06/24/24 Qty/Days Supply: 200/90 Rx Expiration Date: 09/21/24 Refills Remainin OUTPT [id number] PENTOXIFYLLINE SA 400MG/PBO (Status = Active) TAKE ONE TABLET BY MOUTH TWICE A DAY WITH FOOD. SWALLOW WHOLE-DO NOT CHEW, CRUSH OR CUT Rx# [id number] Last Released: 09/22/24 Qty/Days Supply: 200/90 Rx Expiration Date: 12/21/24 Refills Remainin OUTPT LISINOPRIL 40MG TAB (Status = Active) TAKE ONE TABLET BY MOUTH DAILY FOR BLOOD PRESSURE/HEART Rx# [id number] Last Released: 09/06/24 Qty/Days Supply: 90/90 Rx Expiration Date: 05/10/25 Refills Remainin OUTPT METFORMIN HCL 500MG TAB (Status = Active) TAKE ONE TABLET BY MOUTH TWICE A DAY FOR DIABETES Rx# [id number] Last Released: 10/10/24 Qty/Days Supply: 180/90 Rx Expiration Date: 05/21/25 Refills Remainin Indication: FOR BLOOD SUGAR OUTPT PANTOPRAZOLE NA 40MG EC TAB (Status = Active) TAKE ONE TABLET BY MOUTH TWICE A DAY 30 MINUTES BEFORE A MEAL FOR STOMACH, 30 MINUTES BEFORE A MEAL. TAKE ON AN EMPTY STOMACH. Rx# [id number] Last Released: 05/09/24 Qty/Days Supply: 180/90 Rx Expiration Date: 05/10/25 Refills Remainin OUTPT SPIRONOLACTONE 25MG TAB (Status = Active) TAKE ONE TABLET BY MOUTH DAILY FOR BLOOD PRESSURE/HEART Rx# [id number] Last Released: 11/04/24 Qty/Days Supply: 90/90 Rx Expiration Date: 04/29/25 Refills Remainin SUPPLIES OUTPT ACCU-CHEK GUIDE (GLUCOSE) TEST STRIP (Status = Active) USE 1 STRIP TO TEST BLOOD SUGAR DIRECTED LIMIT 50 STRIPS EVERY 90 DAYS Rx# [id number] Last Released: 04/18/24 Qty/Days Supply: 50/90 Rx Expiration Date: 04/17/25 Refills Remainin OUTPT LANCET,SOFTCLIX (Status = Active) USE LANCET AFFECTED AREA DIRECTED Rx# [id number] Last Released: 04/18/24 Qty/Days Supply: 100/90 Rx Expiration Date: 04/17/25 Refills Remainin /arleth/ IVY NAVARRETE POWER SCREWDRIVER OPERATOR STAFF POWER SCREWDRIVER OPERATOR Signed: 11/04/2024 13:40 IVY NAVARRETE [facility]
--- OUTSIDE RECORDS SUMMARY | 2024-11-12 06:20 | XMS_ITS | Encounter Summary ---
Author Name [facility] [place] [facility] [place] Address [address] [place] [address] Care Team Providers Care Insole Cementer Name Role Phone ESTELADEJAN Primary Care Provider Unavailabl e Insurance Providers: [...] RISSA SHIRLEY Mar 04, 2012 RISSA RODRIGUEZ [id number] NORMA SHELBY PATIENT [employer]MANA [facility] (WNR) MEDICARE ADVANTAGE [facility] (WNR) Jul 30, 2017 [id number] HERONNORMAJoel GODOYE PATIENT [employer] [facility] (WNR) MEDICARE ADVANTAGE [facility](W NR) Jul 30, 2017 [id number] HERONNOMRAJoel [place] PATIENT [employer]NA [facility] (WNR) [facility] ORGANIZ MEDIC ARE BRAULIO Connell Jul 30, 2012 [id number] NORMA SHELBY PATIENT MEDICARE (WNR) MEDICARE (M) PART A Jul 30, 2017 PART A [id number] NORMA SHELBY PATIENT MEDICARE (WNR) MEDICARE (M) PART B Jul 30, 2017 PART B [id number] NORMA SHELBY PATIENT MEDICARE PART D (WNR) PRESCRIPT ION PART D Jul 30, 2017 PART D [id number] NORMA SHELBY PATIENT MEDICARE PART D (WNR) MEDICARE (M) PART D Jul 30, 2017 PART D [id number] NORMA SHELBY PATIENT MEDICARE PART D (WNR) MEDICARE (M) PART D Jul 30, 2017 PART D [id number] NORMA SHELBY PATIENT MEDICARE PART D (WNR) MEDICARE (M) PART D Jul 30, 2012 PART D [id number] NORMA SHELBY PATIENT Selected Encounter This section includes the information on record at [place] for the Encounter. Date/Time Encounter Type Encounter Description Reason Provider Source Nov 12, 2024 10:20 AM OFFICE O/P EST LOW 20 MIN GENERAL SURGERY ICD-10-CM L72.0 Epidermal cyst CAVATASSI,WILL BHARATH C IHE Encounter Template Text not used by [place] Assessments - Encounter Diagnoses This section includes the primary and secondary diagnoses documented for the Encounter. Date/Time Primary/Secondary Diagnosis Diagnosis Name Provider Source Nov 12, 2024 11:26 AM PRIMARY Epidermal cyst [facility] Plan of Treatment: Future Appointments (+ [...] Date/Time Appointment Type Appointme nt Facility Name December 10, 2024 10:20 AM AMBULATORY - SUR[facility]ERY [facility] December 24, 2024 08:30 AM AMBULATORY - MEDICINE [facility] Jan 28, 2025 01:30 PM AMBULATORY - REHAB MEDICIN E LEVAR [facility] Feb 04, 2025 09:00 AM AMBULATORY - SURGERY CARLOSIN GORDON [facility] Mar 16, 2025 11:30 AM AMBULATORY - NONE CARLOSINGHERBERTH Barth [facility] Mar 18, 2025 09:30 AM AMBULATORY - MEDICINE [facility] Apr 29, 2025 09:30 AM AMBULATORY - MEDICINE [facility] May 06, 2025 08:40 AM AMBULATORY - SURGERY CARLOSIN STEFFANY [facility] Social History: Smoking Status (Most [...] 2007 07:04 PM V9 CURRENT TOBACCO USER [facility] Sep 25, 2007 07:04 PM V9 TOBACCO OFFERED [facility] Aug 16, 2006 05:31 PM TOBACCO OFFERRED PT MEDS (PROVIDER) [facility] Aug 16, 2006 05:31 PM V9 CURRENT TOBACCO USER [facility] Aug 16, 2006 05:31 PM V9 TOBACCO OFFERED 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 Sep 19, 2005 02:18 PM HF V9 CURRENT SMOKER SMOKES ABOUT 1/2 PPD 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 Aug 30, 2004 11:28 AM HF V9 THIRD TOBACCO BUSINESS SPECIALIST SMOKES UP TO 1 PACK EVERY COUPLE OF DAYS [facility] Mar 15, 2004 03:48 PM HF V9 CURRENT SMOKER .5ppd [facility] Sep 01, 2003 11:25 AM HF V9 SECOND TOBACCO BUSINESS SPECIALIST 10 CIGARETTES A DAY [facility] Oct 21, 2002 12:42 PM HF V9 CURRENT SMOKER 1 pack a day [facility] Pathology Reports: +/- 30 days of [...] ENTRY DATE: NOV 04, 2024@15:53:05 AUTHOR: KIMBERLI DUTTONIGNER: URGENCY: STATUS: COMPLETED $APHDR Reporting Lab: [facility] [CLIA# [id number]] [address] [place] [phone] - - - - - - - [...] placed in two cassettes). CPT CODE - 92328 MICROSCOPIC EXAM/DIAGNOSIS: Skin, right shoulder, shave biopsy: -Ruptured epidermal inclusion cyst. /arleth/ KIMBERLI DUTTON CHIEF,PATHOLOGY [facility] Signed Nov 04, 2024@15:53 Performing Laboratory: Surgical Pathology Report Performed By: [facility] [CLIA# [id number]] [address] [place] [phone] $FTR - - - - - - - - - - - - - - - - - - - - - - - - - - - - - - - - - - - - - - - - (End of report) KIMBERLI DUTTON MD [facility] Date Nov 04, 2024 - - - - - - - - - - - - - - - - - - - - - - - - - - - - - - - - - - - - - - - - CHELSEY SHELBY STANDARD FORM 515 ID:[id number] SEX:M :1945 AGE: 78 LOC:PATH PCP: Dejan Gutierrez MD /arleth/ KIMBERLI DUTTON CHIEF,PATHOLOGY [facility] [place] Signed: 11/04/2024 15:53 KIMBERLI DUTTON-[facility] Encounter Notes: All associated encounter notes This section contains the clinical notes associated to the Encounter. Date/Time Encounter Note(s) Provider Source Nov 13, 2024 08:06 AM ADDENDUM: LOCAL TITLE: Addendum STANDARD TITLE: ADDENDUM DATE OF NOTE: NOV 13, 2024@08:06:08 ENTRY DATE: NOV 13, 2024@08:06:09 AUTHOR: SHEELA HIRSCH EXP COSIGNER: URGENCY: STATUS: COMPLETED Patient is reporting that his insicion is wide open today , removed suture 11/12/24, pt # [phone], via teams [facility]. will alert cm , patient may need to go to the ER , pt stated no pain, packed with gauze ,and taped it. will wait for call from CM and go to the ER. /es/ Sheela Hirsch Advanced Intern Brand Signed: 11/13/2024 08:16 Receipt Acknowledged By: 11/13/2024 09:15 /es/ YARIEL VILLAGOMEZ Advance Intern Brand --- Original Document --- 11/12/24 GENERAL SURGERY ESTABLISHED H&P NOTE: Reason for visit / consultation: wound check HPI: Mr Shelby is an 78 yo male s/p excision of ruptured epidermal inclusion cyst on 10/30. Problem List: Active problems - Computerized Problem List is the source for the followin. Benign hypertensive renal disease 2. Paroxysmal atrial fibrillation 3. Long-term current use of anticoagulant 4. Chronic Kidney Disease Stage 3 (SCT 775667778) 5. Chronic pain 6. Long-term current use of oral hypoglycemic medication 7. Exertional dyspnea 8. Anemia 9. 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 Acquired trigger finger of left index finger 11. Diabetic neuropathy 12. Jay's Esophagus (SCT 239316751) repeat due 01/2021 13. Adenomatous polyp of [...] 20. Lumbar spondylosis with myelopathy (SNOMED CT 89257576) 21. Personal History of Venous Thrombosis and Embolism 22. Obstructive sleep apnea syndrome (SNOMED CT 33311242) 23. Obesity (SNOMED CT 250100565) 24. Mixed hyperlipidemia (SNOMED CT 765837546) 25. Benign hypertensive renal disease Pertinent Medical Hx: epidermal inclusion cysta [id number] Past Surgical History: excision of epidermial inclusion cystlaparoscopic cholecystectomy 07/2021 Social Hx: Smoking: never EtoH: none Medication List: Active Outpatient Medications (including Supplies): Active Outpatient Medications Status = 1) ACCU-CHEK GUIDE (GLUCOSE) TEST STRIP USE 1 STRIP TO TEST ACTIVE BLOOD SUGAR DIRECTED LIMIT 50 STRIPS EVERY 90 DAYS 2) APIXABAN 5MG TAB TAKE ONE-HALF TABLET BY MOUTH TWICE A DAY ACTIVE -CALL ANTICOAGULATION CLINIC [phone] WITH QUESTIONS OR CONCERNS Indication: TO THIN BLOOD 3) ARTIFICIAL TEARS POLYVINYL ALCOHOL PUT 1 DROP IN BOTH EYES ACTIVE TWICE A DAY Indication: FOR DRY EYES 4) ATORVASTATIN CALCIUM 40MG TAB TAKE ONE-HALF TABLET BY MOUTH ACTIVE DAILY FOR CHOLESTEROL 5) CARVEDILOL 25MG TAB TAKE ONE TABLET BY MOUTH TWICE A DAY ACTIVE Indication: FOR HEART/BLOOD PRESSURE 6) CHLORTHALIDONE 25MG TAB TAKE ONE TABLET BY MOUTH DAILY ACTIVE Indication: FOR BLOOD PRESSURE 7) DOXYCYCLINE HYCLATE 100MG TAB TAKE ONE TABLET BY MOUTH TWICE ACTIVE A DAY Indication: FOR SKIN OR EYE CONDITION 8) FLUOXETINE HCL 20MG CAP TAKE ONE CAPSULE BY MOUTH DAILY FOR ACTIVE MOOD 9) GABAPENTIN 300MG CAP TAKE TWO CAPSULES BY MOUTH TWICE A DAY ACTIVE Indication: FOR NERVE PAIN 10) [id number] PENTOXIFYLLINE SA 400MG/PBO TAKE ONE TABLET BY ACTIVE MOUTH TWICE A DAY WITH FOOD. SWALLOW WHOLE-DO NOT CHEW, CRUSH OR CUT 11) LANCET,SOFTCLIX USE LANCET AFFECTED AREA DIRECTED ACTIVE 12) LISINOPRIL 40MG TAB TAKE ONE TABLET BY MOUTH DAILY FOR BLOOD ACTIVE PRESSURE/HEART 13) METFORMIN HCL 500MG TAB TAKE ONE TABLET BY MOUTH TWICE A DAY ACTIVE FOR DIABETES Indication: FOR BLOOD SUGAR 14) PANTOPRAZOLE NA 40MG EC TAB TAKE ONE TABLET BY MOUTH TWICE A ACTIVE DAY 30 MINUTES BEFORE A MEAL FOR STOMACH, 30 MINUTES BEFORE A MEAL. TAKE ON AN EMPTY STOMACH. 15) SPIRONOLACTONE 25MG TAB TAKE ONE TABLET BY MOUTH DAILY FOR ACTIVE BLOOD PRESSURE/HEART Allergies: Patient has answered NKA ROS: Cardiac: dyspnea on exertion, lower leg swelling Respiratory: dyspnea on exertion Physical Exam: General: NAD No infectious signs Cardiac: Respiratory: normal effort and rate Skin, including measurements of any lesions well-healing incision from 10/30 excision. Some erythema but no drainage/weeping. Other pertinent labs: skin, right shoulder, shave biopsy: Ruptured epidermal inclusion cyst. Imaging: Case Review: Code Status: DNR/DNAR Assessment and Plan: Mr Shelby is an 78 yo male s/p excision of ruptured epidermal inclusion cyst on 10/30. Incision at right up shoulder is well- healing. Sutures were removed and patient tolerated procedure well. RTC only necessary if pt has new concerns. Follow-up: PRN /arleth/ OPHELIA ANG Signed: 11/12/2024 10:43 /es/ Sole Armas MD Attending Physician Cosigned: 11/12/2024 11:26 11/12/2024 ADDENDUM STATUS: COMPLETED I was present for the medical student history taking and examination. I independently performed the history, physical examination, and medical decision making. I hereby attest to the accuracy of the student's note as to history, physical examination, and medical decision making, any exceptions or corrections (if present) are noted below. /arleth/ Sole Armas MD Attending Physician Signed: 11/12/2024 11:27 11/13/2024 ADDENDUM STATUS: COMPLETED I spoke with Pt this morning, I offered for him to come in today for one of the surgeons to look at his wound to which he is agreeable. Pt will present to the mora 4 desk this morning around 1030 /arleth/ RADHA BEASLEY General Surgery Global Logistics Manager Signed: 11/13/2024 09:13 SHEELA HIRSCH[facility] Nov 12, 2024 10:46 AM SURGERY NOTE: LOCAL TITLE: PATEL FRAILTY TOOL STANDARD TITLE: SURGERY NOTE DATE OF NOTE: NOV 12, 2024@10:46 ENTRY DATE: NOV 12, 2024@10:46:58 AUTHOR: JOANA VERA EXP COSIGNER: URGENCY: STATUS: COMPLETED FRAILTY CALCULATION: Risk Analysis Index (PATEL) score is: Score: 46 Variable Score Sex: 3 Cancer Status: No Weight Loss: 0 Poor Appetite: 0 Renal Insufficiency: 8 Chronic/Congestive Heart Failure: 0 Shortness of Breath: 3 Dependent Livin Cognitive Decline: Yes ADL*Cognitive Decline: 6 Mobility: Needs help from a cane, walker or scooter Eating: Can plan and prepare his/her own meals Toileting: Can use the toilet without help Personal Hygiene: Can shower or bathe without prompting or help PATEL Score: 46 /arleth/ JOANA VERA PLODDING OPERATOR Signed: 11/12/2024 10:48 JOANA VERA[facility] Nov 12, 2024 10:37 AM SURGERY H & P NOTE : LOCAL TITLE: GENERAL SURGERY ESTABLISHED H&P NOTE STANDARD TITLE: SURGERY H & P NOTE DATE OF NOTE: NOV 12, 2024@10:37 ENTRY DATE: NOV 12, 2024@10:37:41 AUTHOR: OPHELIA ANG EXP COSIGNER: SOLE ARMAS URGENCY: STATUS: COMPLETED GENERAL SURGERY ESTABLISHED H&P NOTE Has ADDENDA Reason for visit / consultation: wound check HPI: Mr Shelby is an 78 yo male s/p excision of ruptured epidermal inclusion cyst on 10/30. Problem List: Active problems - Computerized Problem List is the source for the followin. Benign hypertensive renal disease 2. Paroxysmal atrial fibrillation 3. Long-term current use of anticoagulant 4. Chronic Kidney Disease Stage 3 (SCT 358441640) 5. Chronic pain 6. Long-term current use of oral hypoglycemic medication 7. Exertional dyspnea 8. Anemia 9. 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 Acquired trigger finger of left index finger 11. Diabetic neuropathy 12. Jay's Esophagus (SCT 626225107) repeat due 01/2021 13. Adenomatous polyp of [...] 20. Lumbar spondylosis with myelopathy (SNOMED CT 34142605) 21. Personal History of Venous Thrombosis and Embolism 22. Obstructive sleep apnea syndrome (SNOMED CT 71078708) 23. Obesity (SNOMED CT 295729902) 24. Mixed hyperlipidemia (SNOMED CT 594941155) 25. Benign hypertensive renal disease Pertinent Medical Hx: epidermal inclusion cysta [id number] Past Surgical History: excision of epidermial inclusion cystlaparoscopic cholecystectomy 07/2021 Social Hx: Smoking: never EtoH: none Medication List: Active Outpatient Medications (including Supplies): Active Outpatient Medications Status = 1) ACCU-CHEK GUIDE (GLUCOSE) TEST STRIP USE 1 STRIP TO TEST ACTIVE BLOOD SUGAR DIRECTED LIMIT 50 STRIPS EVERY 90 DAYS 2) APIXABAN 5MG TAB TAKE ONE-HALF TABLET BY MOUTH TWICE A DAY ACTIVE -CALL ANTICOAGULATION CLINIC [phone] WITH QUESTIONS OR CONCERNS Indication: TO THIN BLOOD 3) ARTIFICIAL TEARS POLYVINYL ALCOHOL PUT 1 DROP IN BOTH EYES ACTIVE TWICE A DAY Indication: FOR DRY EYES 4) ATORVASTATIN CALCIUM 40MG TAB TAKE ONE-HALF TABLET BY MOUTH ACTIVE DAILY FOR CHOLESTEROL 5) CARVEDILOL 25MG TAB TAKE ONE TABLET BY MOUTH TWICE A DAY ACTIVE Indication: FOR HEART/BLOOD PRESSURE 6) CHLORTHALIDONE 25MG TAB TAKE ONE TABLET BY MOUTH DAILY ACTIVE Indication: FOR BLOOD PRESSURE 7) DOXYCYCLINE HYCLATE 100MG TAB TAKE ONE TABLET BY MOUTH TWICE ACTIVE A DAY Indication: FOR SKIN OR EYE CONDITION 8) FLUOXETINE HCL 20MG CAP TAKE ONE CAPSULE BY MOUTH DAILY FOR ACTIVE MOOD 9) GABAPENTIN 300MG CAP TAKE TWO CAPSULES BY MOUTH TWICE A DAY ACTIVE Indication: FOR NERVE PAIN 10) [id number] PENTOXIFYLLINE SA 400MG/PBO TAKE ONE TABLET BY ACTIVE MOUTH TWICE A DAY WITH FOOD. SWALLOW WHOLE-DO NOT CHEW, CRUSH OR CUT 11) LANCET,SOFTCLIX USE LANCET AFFECTED AREA DIRECTED ACTIVE 12) LISINOPRIL 40MG TAB TAKE ONE TABLET BY MOUTH DAILY FOR BLOOD ACTIVE PRESSURE/HEART 13) METFORMIN HCL 500MG TAB TAKE ONE TABLET BY MOUTH TWICE A DAY ACTIVE FOR DIABETES Indication: FOR BLOOD SUGAR 14) PANTOPRAZOLE NA 40MG EC TAB TAKE ONE TABLET BY MOUTH TWICE A ACTIVE DAY 30 MINUTES BEFORE A MEAL FOR STOMACH, 30 MINUTES BEFORE A MEAL. TAKE ON AN EMPTY STOMACH. 15) SPIRONOLACTONE 25MG TAB TAKE ONE TABLET BY MOUTH DAILY FOR ACTIVE BLOOD PRESSURE/HEART Allergies: Patient has answered NKA ROS: Cardiac: dyspnea on exertion, lower leg swelling Respiratory: dyspnea on exertion Physical Exam: General: NAD No infectious signs Cardiac: Respiratory: normal effort and rate Skin, including measurements of any lesions well-healing incision from 10/30 excision. Some erythema but no drainage/weeping. Other pertinent labs: skin, right shoulder, shave biopsy: Ruptured epidermal inclusion cyst. Imaging: Case Review: Code Status: DNR/DNAR Assessment and Plan: Mr Shelby is an 78 yo male s/p excision of ruptured epidermal inclusion cyst on 10/30. Incision at right up shoulder is well- healing. Sutures were removed and patient tolerated procedure well. RTC only necessary if pt has new concerns. Follow-up: PRN /arleth/ OPHELIA ANG Signed: 11/12/2024 10:43 /es/ Sole Armas MD Attending Physician Cosigned: 11/12/2024 11:26 11/12/2024 ADDENDUM STATUS: COMPLETED I was present for the medical student history taking and examination. I independently performed the history, physical examination, and medical decision making. I hereby attest to the accuracy of the student's note as to history, physical examination, and medical decision making, any exceptions or corrections (if present) are noted below. /arleth/ Sole Armas MD Attending Physician Signed: 11/12/2024 11:27 11/13/2024 ADDENDUM STATUS: COMPLETED Patient is reporting that his insicion is wide open today , removed suture 11/12/24, pt # [phone], via teams [facility]. will alert cm , patient may need to go to the ER , pt stated no pain, packed with gauze ,and taped it. will wait for call from CM and go to the ER. /es/ Sheela Hirsch Advanced Intern Brand Signed: 11/13/2024 08:16 Receipt Acknowledged By: 11/13/2024 09:15 /es/ YARIEL Ramires Intern Brand 11/13/2024 ADDENDUM STATUS: COMPLETED I spoke with Pt this morning, I offered for him to come in today for one of the surgeons to look at his wound to which he is agreeable. Pt will present to the baker 4 desk this morning around 1030 /es/ RADHA BEASLEY General Surgery Global Logistics Manager Signed: 11/13/2024 09:13 OPHELIA ANG[facility] Nov 12, 2024 10:18 AM SURGERY NURSING NO TE: LOCAL TITLE: SURGERY CLINIC INTAKE NOTE STANDARD TITLE: SURGERY NURSING NOTE DATE OF NOTE: NOV 12, 2024@10:18 ENTRY DATE: NOV 12, 2024@10:19:01 AUTHOR: CHARITO CESPEDES COSIGNER: URGENCY: STATUS: COMPLETED The patient was [...] of active outpatient prescriptions [facility]ensed from this [facility] (local) and dispensed from another VA or DoD facility (remote) as well as inpatient orders (local pending and active), local clinic medications, locally documented non-VA medications, and local prescriptions that have or been discontinued in the past 90 days. Non-VA Meds Last Documented On: May 08, 2019 NOTE The display of VA prescriptions dispensed from another VA or DoD facility (remote) is limited to active outpatient prescription entries matched to National Drug File at the originating site and may not include some items such as investigational drugs, compounds, etc. NOT INCLUDED IN THIS LIST: Medications self-entered by the patient into personal health records (i.e. [employer]) are NOT included in this list. Non-VA medications documented outside this VA, remote inpatient orders (regardless of status) and remote clinic medications are NOT included in this list. The patient and provider must always discuss medications the patient is taking, regardless of where the medication was dispensed or obtained. OUTPT APIXABAN 5MG TAB (Status = Active) TAKE ONE-HALF TABLET BY MOUTH TWICE A DAY TO THIN BLOOD -CALL ANTICOAGULATION CLINIC [phone] WITH QUESTIONS OR CONCERNS Rx# [id number] Last Released: 10/28/24 Qty/Days Supply: Rx Expiration Date: 04/11/25 Refills Remainin Indication: TO THIN BLOOD OUTPT ARTIFICIAL TEARS POLYVINYL ALCOHOL (Status = Active) PUT 1 DROP IN BOTH EYES TWICE A DAY FOR DRY EYES Rx# [id number] Last Released: 11/10/24 Qty/Days Supply: Rx Expiration Date: 11/05/25 Refills Remainin Indication: FOR DRY EYES OUTPT ATORVASTATIN CALCIUM 40MG TAB (Status = Active) TAKE ONE-HALF TABLET BY MOUTH DAILY FOR CHOLESTEROL Rx# [id number] Last Released: 09/13/24 Qty/Days Supply: 45 Rx Expiration Date: 05/10/25 Refills Remainin OUTPT CARVEDILOL 25MG TAB (Status = Active) TAKE ONE TABLET BY MOUTH TWICE A DAY FOR HEART/BLOOD PRESSURE Rx# [id number] Last Released: 10/14/24 Qty/Days Supply: 180/ Rx Expiration Date: 05/21/25 Refills Remainin Indication: FOR HEART/BLOOD PRESSURE OUTPT CHLORTHALIDONE 25MG TAB (Status = Active) TAKE ONE TABLET BY MOUTH DAILY FOR BLOOD PRESSURE Rx# [id number] Last Released: 05/09/24 Qty/Days Supply: 90 Rx Expiration Date: 05/10/25 Refills Remainin Indication: FOR BLOOD PRESSURE OUTPT DOXYCYCLINE HYCLATE 100MG TAB (Status = Active) TAKE ONE TABLET BY MOUTH TWICE A DAY Rx# [id number] Last Released: 10/20/24 Qty/Days Supply: 09/02 Rx Expiration Date: 11/19/24 Refills Remainin Indication: FOR SKIN OR EYE CONDITION OUTPT FLUOXETINE HCL 20MG CAP (Status = Active) TAKE ONE CAPSULE BY MOUTH DAILY FOR MOOD Rx# [id number] Last Released: 05/09/24 Qty/Days Supply: 90/ Rx Expiration Date: 05/10/25 Refills Remainin OUTPT GABAPENTIN 300MG CAP (Status = Active) TAKE TWO CAPSULES BY MOUTH TWICE A DAY FOR NERVE PAIN Rx# [id number] Last Released: 10/21/24 Qty/Days Supply: 120/30 Rx Expiration Date: 06/12/25 Refills Remainin Indication: FOR NERVE PAIN OUTPT [id number] PENTOXIFYLLINE SA 400MG/PBO (Status = ) TAKE ONE TABLET BY MOUTH TWICE A DAY WITH FOOD. SWALLOW WHOLE-DO NOT CHEW, CRUSH OR CUT Rx# [id number] Last Released: 06/24/24 Qty/Days Supply: 200/90 Rx Expiration Date: 09/21/24 Refills Remainin OUTPT [id number] PENTOXIFYLLINE SA 400MG/PBO (Status = Active) TAKE ONE TABLET BY MOUTH TWICE A DAY WITH FOOD. SWALLOW WHOLE-DO NOT CHEW, CRUSH OR CUT Rx# [id number] Last Released: 09/22/24 Qty/Days Supply: 200/90 Rx Expiration Date: 12/21/24 Refills Remainin OUTPT LISINOPRIL 40MG TAB (Status = Active) TAKE ONE TABLET BY MOUTH DAILY FOR BLOOD PRESSURE/HEART Rx# [id number] Last Released: 09/06/24 Qty/Days Supply: 90/90 Rx Expiration Date: 05/10/25 Refills Remainin OUTPT METFORMIN HCL 500MG TAB (Status = Active) TAKE ONE TABLET BY MOUTH TWICE A DAY FOR DIABETES Rx# [id number] Last Released: 10/10/24 Qty/Days Supply: 180/90 Rx Expiration Date: 05/21/25 Refills Remainin Indication: FOR BLOOD SUGAR OUTPT PANTOPRAZOLE NA 40MG EC TAB (Status = Active) TAKE ONE TABLET BY MOUTH TWICE A DAY 30 MINUTES BEFORE A MEAL FOR STOMACH, 30 MINUTES BEFORE A MEAL. TAKE ON AN EMPTY STOMACH. Rx# [id number] Last Released: 11/04/24 Qty/Days Supply: 180/90 Rx Expiration Date: 05/10/25 Refills Remainin OUTPT SPIRONOLACTONE 25MG TAB (Status = Active) TAKE ONE TABLET BY MOUTH DAILY FOR BLOOD PRESSURE/HEART Rx# [id number] Last Released: 11/04/24 Qty/Days Supply: 90 Rx Expiration Date: 04/29/25 Refills Remainin SUPPLIES OUTPT ACCU-CHEK GUIDE (GLUCOSE) TEST STRIP (Status = Active) USE 1 STRIP TO TEST BLOOD SUGAR DIRECTED LIMIT 50 STRIPS EVERY 90 DAYS Rx# [id number] Last Released: 04/18/24 Qty/Days Supply: 50/90 Rx Expiration Date: 04/17/25 Refills Remainin OUTPT LANCET,SOFTCLIX (Status = Active) USE LANCET AFFECTED AREA DIRECTED Rx# [id number] Last Released: 04/18/24 Qty/Days Supply: 100/90 Rx Expiration Date: 04/17/25 Refills Remainin /arleth/ Charito Cespedes [facility] OPC TRAILER RENTAL CLERK Signed: 11/12/2024 10:19 CHARITO CESPEDES-[facility]
--- OUTSIDE RECORDS SUMMARY | 2024-12-10 06:20 | XMS_ITS | Encounter Summary ---
Author Name [facility] Organization [facility] Address [address] [place] [address] Care Team Providers Care Salvage Inspector Name Role Phone ESTELAMAYLIN Primary Care Provider [...] RISSA SHIRLEY Mar 04, 2012 RISSA RODRIGUEZ [id number] NORMA SHELBY PATIENT [employer] [facility] (WNR) MEDICARE ADVANTAGE [facility] (WNR) Jul 30, 2017 [id number] HERONNORMAJoel PARIS PATIENT [employer] [facility] (WNR) MEDICARE ADVANTAGE [facility](W NR) Jul 30, 2017 [id number] [id number] NORMA SHELBY PATIENT [employer] [facility] (WNR) [facility] MEDIC ARE BRAULIO Connell Jul 30, 2012 [id number] ONRMA SHELBY PATIENT MEDICARE (WNR) MEDICARE (M) PART A Jul 30, 2017 PART A [id number] NORMA SHELBY PATIENT MEDICARE (WNR) MEDICARE (M) PART B Jul 30, 2017 PART B [id number] NORMA SHELBY PATIENT MEDICARE PART D (WNR) PRESCRIPT ION PART D Jul 30, 2017 PART D [id number] NORMA SHELBY PATIENT MEDICARE PART D (WNR) MEDICARE (M) PART D Jul 30, 2017 PART D [id number] NORMA SHELBY PATIENT MEDICARE PART D (WNR) MEDICARE (M) PART D Jul 30, 2017 PART D [id number] [phone] NORMA SHELBY PATIENT MEDICARE PART D (WNR) MEDICARE (M) PART D Jul 30, 2012 PART D [id number] NORMA SHELBY PATIENT Selected Encounter This section includes the information on record at ME for the Encounter. Date/Time Encounter Type Encounter Description Reason Provider Source December 10, 2024 10:20 AM OFFICE O/P EST SF 10 MIN GENERAL SURGERY ICD-10-CM T81.329D Deep Disrupt/dehisc of operation wound, unspecified, subs CAVATASSI,WILL BHARATH C IHE Encounter Template Text not used by ME Assessments - Encounter Diagnoses This section includes the primary and secondary diagnoses documented for the Encounter. Date/Time Primary/Secondary Diagnosis Diagnosis Name Provider Source December 10, 2024 10:41 AM PRIMARY Deep Disrupt/dehisc of operation wound, unspecified, subs CICALESE,ANCA V [facility] Plan of Treatment: Future Appointments (+ 6 months) and Future Tests (+/- 45 days) The Plan of Treatment section includes future care activities for the patient from all [place] treatmentfacilities. This section includes future appointments and future orders which are active, pending or scheduled. Future Appointments This section includes appointments that were scheduled to occur 6 months from the date of the Encounter, up to a maximum of 20 appointments. The data comes from all [place] treatment facilities. Appointment Date/Time Appointment Type Appointme nt Facility Name December 24, 2024 08:30 AM AMBULATORY - MEDICINE [facility] Jan 28, 2025 01:30 PM AMBULATORY - REHAB MEDICIN E LEVAR [facility] Feb 04, 2025 09:00 AM AMBULATORY - SURGERY CARLOSIN GORDON [facility] Mar 16, 2025 11:30 AM AMBULATORY - NONE IMANI Barth [facility] Mar 18, 2025 09:30 AM [facility] Apr 29, 2025 09:30 AM [facility] May 06, 2025 08:40 AM AMBULATORY - SURGERY CARLOSIN STEFFANY [facility] Lab Results: +/- 30 days of the [...] Unit Interpretation Reference Range Specimen Type Comment December 24, 2024 09:18 AM [facility] eGFR + CREATININE PLASMA Specimen Type: PLASMA Comment: Estimated Glomerular [...] decrease <15 G5 Kidney failure Ordering Provider: ISELA ASH Report Released Date/Time: December 23, 2024 04:13 PM Reporting Lab: [address] [address] Performing Lab: [address] [address] CREATININE 1.99 mg/dL H 0.72-1.25 eGFR (CKD-EPI) 33 Social History: Smoking Status (Most current) and Tobacco Use (All prior to encounter date) This section includes the most current, and the historical, smoking and tobacco- related health factors from the ME facility where the Encounter took place. Current Smoking Status This section includes the most current smoking, or tobacco-related health factor, from the ME facility where the Encounter took place. Date/Time Current Smoking Status Comment Facil ity December 08, 2008 06:50 PM V9 QUIT TOBACCO >7 YEARS AGO [facility] Tobacco Use History This section includes a history of the smoking, or tobacco-related health factors, that were collected on or before the date of the Encounter. The data comes from the ME facility where the Encounter took place. Date/Time Smoking Status/Tobac co Use Comment Facility Sep 25, 2007 07:04 PM TOBACCO OFFERRED PT MEDS (PROVIDER) [facility] Sep 25, 2007 07:04 PM V9 CURRENT TOBACCO USER [facility] Sep 25, 2007 07:04 PM V9 TOBACCO OFFERED [facility] Aug 16, 2006 05:31 PM TOBACCO OFFERRED PT MEDS (PROVIDER) [facility] Aug 16, 2006 05:31 PM V9 CURRENT TOBACCO USER [facility] Aug 16, 2006 05:31 PM V9 TOBACCO OFFERED [facility] Feb 08, 2006 02:21 PM HF V9 SECOND TOBACCO GRADES 9 THROUGH [address] [place] [address] Sep 19, 2005 02:18 PM HF V9 CURRENT SMOKER SMOKES ABOUT 1/2 PPD [facility] Feb 07, 2005 02:38 PM HF V9 SECOND TOBACCO GRADES 9 THROUGH [address] [place] [address] Aug 30, 2004 11:28 AM HF V9 THIRD TOBACCO GRADES 9 THROUGH 12 TEACHER SMOKES UP TO 1 PACK EVERY COUPLE OF DAYS [facility] Mar 15, 2004 03:48 PM HF V9 CURRENT SMOKER [address] [place] [address] Sep 01, 2003 11:25 AM HF V9 SECOND TOBACCO GRADES 9 THROUGH 12 TEACHER 10 CIGARETTES A DAY [facility] Oct 21, 2002 12:42 PM HF V9 CURRENT SMOKER 1 pack a day [facility] Encounter Notes: All associated encounter notes This section contains the clinical notes associated to the Encounter. Date/Time Encounter Note(s) Provider Source December 10, 2024 11:27 AM SURGERY NURSING NO TE: LOCAL TITLE: SURGERY CLINIC INTAKE NOTE STANDARD TITLE: SURGERY NURSING NOTE DATE OF NOTE: DECEMBER 10, 2024@11:27 ENTRY DATE: DECEMBER 10, 2024@11:27:19 AUTHOR: CHARITO DC COSIGNER: URGENCY: STATUS: COMPLETED The patient was [...] of active outpatient prescriptions dispensed from this ME (local) and dispensed from another ME or [facility]D facility (remote) as well as inpatient orders (local pending and active), local clinic medications, locally documented non-VA medications, and local prescriptions that have or been discontinued in the past 90 days. Non-VA Meds Last Documented On: May 08, 2019 NOTE The display of VA prescriptions dispensed from another [place] or [facility] facility (remote) is limited to active outpatient prescription entries matched to National Drug File at the originating site and may not include some items such as investigational drugs, compounds, etc. NOT INCLUDED IN THIS LIST: Medications self-entered by the patient into personal health records (i.e. [employer]) are NOT included in this list. Non-VA medications documented outside this ME, remote inpatient orders (regardless of status) and remote clinic medications are NOT included in this list. The patient and provider must always discuss medications the patient is taking, regardless of where the medication was dispensed or obtained. OUTPT APIXABAN 5MG TAB (Status = Active) TAKE ONE-HALF TABLET BY MOUTH TWICE A DAY TO THIN BLOOD -CALL ANTICOAGULATION CLINIC [phone] WITH QUESTIONS OR CONCERNS Rx# [id number] Last Released: 10/28/24 Qty/Days Supply: Rx Expiration Date: 04/11/25 Refills Remainin Indication: TO THIN BLOOD OUTPT ARTIFICIAL TEARS POLYVINYL ALCOHOL (Status = Active) PUT 1 DROP IN BOTH EYES TWICE A DAY FOR DRY EYES Rx# [id number] Last Released: 11/28/24 Qty/Days Supply: Rx Expiration Date: 11/05/25 Refills Remainin Indication: FOR DRY EYES OUTPT ATORVASTATIN CALCIUM 40MG TAB (Status = Active) TAKE ONE-HALF TABLET BY MOUTH DAILY FOR CHOLESTEROL Rx# [id number] Last Released: 12/03/24 Qty/Days Supply: Rx Expiration Date: 05/10/25 Refills Remainin OUTPT CARVEDILOL 25MG TAB (Status = Active) TAKE ONE TABLET BY MOUTH TWICE A DAY FOR HEART/BLOOD PRESSURE Rx# [id number] Last Released: 10/14/24 Qty/Days Supply: 180/90 Rx Expiration Date: 05/21/25 Refills Remainin Indication: FOR HEART/BLOOD PRESSURE OUTPT CHLORTHALIDONE 25MG TAB (Status = Active/Suspended) TAKE ONE TABLET BY MOUTH DAILY FOR BLOOD PRESSURE Rx# [id number] Last Released: 11/13/24 Qty/Days Supply: 90 Rx Expiration Date: 05/10/25 Refills Remainin Indication: FOR BLOOD PRESSURE OUTPT DOXYCYCLINE HYCLATE 100MG TAB (Status = ) TAKE ONE TABLET BY MOUTH TWICE A DAY Rx# [id number] Last Released: 10/20/24 Qty/Days Supply: 09/02 Rx Expiration Date: 11/19/24 Refills Remainin Indication: FOR SKIN OR EYE CONDITION OUTPT FLUOXETINE HCL 20MG CAP (Status = Active) TAKE ONE CAPSULE BY MOUTH DAILY FOR MOOD Rx# [id number] Last Released: 05/09/24 Qty/Days Supply: 90/ Rx Expiration Date: 05/10/25 Refills Remainin OUTPT GABAPENTIN 300MG CAP (Status = Active) TAKE TWO CAPSULES BY MOUTH TWICE A DAY FOR NERVE PAIN Rx# [id number] Last Released: 11/17/24 Qty/Days Supply: 120/30 Rx Expiration Date: 06/12/25 Refills Remainin Indication: FOR NERVE PAIN OUTPT [id number] PENTOXIFYLLINE SA 400MG/PBO (Status = ) TAKE ONE TABLET BY MOUTH TWICE A DAY WITH FOOD. SWALLOW WHOLE-DO NOT CHEW, CRUSH OR CUT Rx# [id number] Last Released: 06/24/24 Qty/Days Supply: 200/90 Rx Expiration Date: 09/21/24 Refills Remainin OUTPT [id number] PENTOXIFYLLINE SA 400MG/PBO (Status = Active) TAKE ONE TABLET BY MOUTH TWICE A DAY WITH FOOD. SWALLOW WHOLE-DO NOT CHEW, CRUSH OR CUT Rx# [id number] Last Released: 09/22/24 Qty/Days Supply: 200/90 Rx Expiration Date: 12/21/24 Refills Remainin OUTPT LISINOPRIL 40MG TAB (Status = Active) TAKE ONE TABLET BY MOUTH DAILY FOR BLOOD PRESSURE/HEART Rx# [id number] Last Released: 11/26/24 Qty/Days Supply: Rx Expiration Date: 05/10/25 Refills Remainin OUTPT METFORMIN HCL 500MG TAB (Status = Active) TAKE ONE TABLET BY MOUTH TWICE A DAY FOR DIABETES Rx# [id number] Last Released: 10/10/24 Qty/Days Supply: 180/ Rx Expiration Date: 05/21/25 Refills Remainin Indication: FOR BLOOD SUGAR OUTPT PANTOPRAZOLE NA 40MG EC TAB (Status = Active) TAKE ONE TABLET BY MOUTH TWICE A DAY 30 MINUTES BEFORE A MEAL FOR STOMACH, 30 MINUTES BEFORE A MEAL. TAKE ON AN EMPTY STOMACH. Rx# [id number] Last Released: 11/04/24 Qty/Days Supply: 180/ Rx Expiration Date: 05/10/25 Refills Remainin OUTPT SODIUM CHLORIDE 0.9% IRRG SOLN 500ML (Status = Active) IRRIGATE SMALL AMOUNT (500ML BOTTLE) IRRIGATION DIRECTED FOR WOUND CARE Rx# [id number] Last Released: 11/25/24 Qty/Days Supply: 10/26 Rx Expiration Date: 11/20/25 Refills Remainin Indication: FOR WOUND CARE OUTPT SPIRONOLACTONE 25MG TAB (Status = Active) TAKE ONE TABLET BY MOUTH DAILY FOR BLOOD PRESSURE/HEART Rx# [id number] Last Released: 11/04/24 Qty/Days Supply: Rx Expiration Date: 04/29/25 Refills Remainin SUPPLIES OUTPT ACCU-CHEK GUIDE (GLUCOSE) TEST STRIP (Status = Active) USE 1 STRIP TO TEST BLOOD SUGAR DIRECTED LIMIT 50 STRIPS EVERY 90 DAYS Rx# [id number] Last Released: 04/18/24 Qty/Days Supply: 50/90 Rx Expiration Date: 04/17/25 Refills Remainin OUTPT GAUZE PAD 4IN X 4IN 12-PLY STERILE (Status = Active) USE GAUZE GAUZE PAD 4IN X 4IN 12-PLY STERILE AFFECTED AREA TWICE A DAY FOR WOUND CARE MOISTEN WITH SALINE AND PACK WOUND Rx# [id number] Last Released: 11/27/24 Qty/Days Supply: 100/30 Rx Expiration Date: 11/20/25 Refills Remainin Indication: FOR WOUND CARE OUTPT LANCET,SOFTCLIX (Status = Active) USE LANCET AFFECTED AREA DIRECTED Rx# [id number] Last Released: 04/18/24 Qty/Days Supply: 100/90 Rx Expiration Date: 04/17/25 Refills Remainin OUTPT TAPE,MICROPORE 2IN 3M #1530-2 (Status = Active) TAPE TAPE,PAPER 2IN AFFECTED AREA DIRECTED Rx# [id number] Last Released: 11/23/24 Qty/Days Supply: Rx Expiration Date: 11/20/25 Refills Remainin /es/ Charito HOLLAND OPC STENOCAPTIONER Signed: 12/10/2024 11:27 CHARITO DC-[facility] December 10, 2024 10:24 AM SURGERY NOTE: LOCAL TITLE: GENERAL SURGERY ESTABLISHED SOAP NOTE STANDARD TITLE: SURGERY NOTE DATE OF NOTE: DECEMBER 10, 2024@10:24 ENTRY DATE: DECEMBER 10, 2024@10:24:24 AUTHOR: ANCA GE COSIGNER: SOLE ARMAS URGENCY: STATUS: COMPLETED GENERAL SURGERY ESTABLISHED SOAP NOTE Has ADDENDA Reason for follow-up: wound dehiscence following ruptured epidermal inclusion cyst removal Subjective: Doing well since last visit. Reports he has been packing his wound BID and that it has gotten significantly less deep since November 13, the day he noticed the wound dehiscence. Denies new medical illnesses or hospitalizations since his last visit on 11/12/2024. Pertinent PMH/PSH: A fib, CKD stage 3 Problem List: Active problems - Computerized Problem List is the source for the followin. Benign hypertensive renal disease 2. Paroxysmal atrial fibrillation 3. Long-term current use of anticoagulant 4. Chronic Kidney Disease Stage 3 (SCT 059909430) 5. Chronic pain 6. Long-term current use of oral hypoglycemic medication 7. Exertional dyspnea 8. Anemia 9. 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 Acquired trigger finger of left index finger 11. Diabetic neuropathy 12. Jay's Esophagus (SCT 121549777) repeat due 01/2021 13. Adenomatous polyp of [...] 20. Lumbar spondylosis with myelopathy (SNOMED CT 04554960) 21. Personal History of Venous Thrombosis and Embolism 22. Obstructive sleep apnea syndrome (SNOMED CT 18943754) 23. Obesity (SNOMED CT 666043789) 24. Mixed hyperlipidemia (SNOMED CT 047048028) 25. Benign hypertensive renal disease Medication List: Active Outpatient Medications (including Supplies): Active Outpatient Medications Status 1) ACCU-CHEK GUIDE (GLUCOSE) TEST STRIP USE 1 STRIP TO TEST ACTIVE BLOOD SUGAR DIRECTED LIMIT 50 STRIPS EVERY 90 DAYS 2) APIXABAN 5MG TAB TAKE ONE-HALF TABLET BY MOUTH TWICE A DAY ACTIVE -CALL ANTICOAGULATION CLINIC [phone] WITH QUESTIONS OR CONCERNS Indication: TO THIN [...] TAKE ONE TABLET BY MOUTH DAILY ACTIVE (S) Indication: FOR BLOOD PRESSURE 7) FLUOXETINE HCL 20MG CAP TAKE ONE CAPSULE BY MOUTH DAILY FOR ACTIVE MOOD 8) GABAPENTIN 300MG CAP TAKE TWO CAPSULES BY MOUTH TWICE A DAY ACTIVE Indication: FOR NERVE PAIN 9) GAUZE PAD 4IN X 4IN 12-PLY STERILE USE GAUZE GAUZE PAD 4IN X ACTIVE 4IN 12-PLY STERILE AFFECTED AREA TWICE A DAY MOISTEN WITH SALINE AND PACK WOUND Indication: FOR WOUND CARE 10) [id number] PENTOXIFYLLINE SA 400MG/PBO TAKE ONE TABLET BY [...] MEAL. TAKE ON AN EMPTY STOMACH. 15) SODIUM CHLORIDE 0.9% IRRG SOLN 500ML IRRIGATE SMALL AMOUNT ACTIVE (500ML BOTTLE) IRRIGATION DIRECTED Indication: FOR WOUND CARE 16) SPIRONOLACTONE 25MG TAB TAKE ONE TABLET BY MOUTH DAILY FOR ACTIVE BLOOD PRESSURE/HEART 17) TAPE,MICROPORE 2IN 3M #1530-2 TAPE TAPE,PAPER 2IN AFFECTED ACTIVE AREA DIRECTED Allergies: Patient has answered NKA Physical Exam: Right scapula wound well-healing with granulation tissue, almost to level of skin New labs/imaging results: None Pathology: None Assessment and Plan: Mr. Shelby is an 79-year-old gentleman who underwent excision of a ruptured right scapular epidermial inclusion cyst on 10/30/2024. After suture removal on 11/12/2024, he experienced a complete wound dehisence that was treated with BID WTD. He returns today with an excellently healed wound with granulation tissue. Patient instructed to continue to cover daily until wound edges come together. Can follow up PRN. /es/ ANCA GE Signed: 12/10/2024 10:34 /es/ Sole Armas MD Attending Physician Cosigned: 12/10/2024 10:41 12/10/2024 ADDENDUM STATUS: COMPLETED I saw and evaluated the patient and I discussed the case with the resident. I agree with the findings and plan as documented in the resident's note. /arleth/ Sloe Armas MD Attending Physician Signed: 12/10/2024 10:41 ANCA GE-[facility] December 10, 2024 10:15 AM SURGERY NURSING NO TE: LOCAL TITLE: SURGERY CLINIC INTAKE NOTE STANDARD TITLE: SURGERY NURSING NOTE DATE OF NOTE: DECEMBER 10, 2024@10:15 ENTRY DATE: DECEMBER 10, 2024@10:15:44 AUTHOR: CHARITO DC COSIGNER: URGENCY: STATUS: COMPLETED The patient was [...] the patient into personal health records (i.e. [facility]) are NOT included in this list. Non-VA medications documented outside this ME, remote inpatient orders (regardless of status) and remote clinic medications are NOT included in this list. The patient and provider must always discuss medications the patient is taking, regardless of where the medication was dispensed or obtained. OUTPT APIXABAN 5MG TAB (Status = Active) TAKE ONE-HALF TABLET BY MOUTH TWICE A DAY TO THIN BLOOD -CALL ANTICOAGULATION CLINIC [phone] WITH QUESTIONS OR CONCERNS Rx# [id number] Last Released: 10/28/24 Qty/Days Supply: Rx Expiration Date: 04/11/25 Refills Remainin Indication: TO THIN BLOOD OUTPT ARTIFICIAL TEARS POLYVINYL ALCOHOL (Status = Active) PUT 1 DROP IN BOTH EYES TWICE A DAY FOR DRY EYES Rx# [id number] Last Released: 11/28/24 Qty/Days Supply: Rx Expiration Date: 11/05/25 Refills Remainin Indication: FOR DRY EYES OUTPT ATORVASTATIN CALCIUM 40MG TAB (Status = Active) TAKE ONE-HALF TABLET BY MOUTH DAILY FOR CHOLESTEROL Rx# [id number] Last Released: 12/03/24 Qty/Days Supply: 45 Rx Expiration Date: 05/10/25 Refills Remainin OUTPT CARVEDILOL 25MG TAB (Status = Active) TAKE ONE TABLET BY MOUTH TWICE A DAY FOR HEART/BLOOD PRESSURE Rx# [id number] Last Released: 10/14/24 Qty/Days Supply: 180/ Rx Expiration Date: 05/21/25 Refills Remainin Indication: FOR HEART/BLOOD PRESSURE OUTPT CHLORTHALIDONE 25MG TAB (Status = Active/Suspended) TAKE ONE TABLET BY MOUTH DAILY FOR BLOOD PRESSURE Rx# [id number] Last Released: 11/13/24 Qty/Days Supply: 90 Rx Expiration Date: 05/10/25 Refills Remainin Indication: FOR BLOOD PRESSURE OUTPT DOXYCYCLINE HYCLATE 100MG TAB (Status = ) TAKE ONE TABLET BY MOUTH TWICE A DAY Rx# [id number] Last Released: 10/20/24 Qty/Days Supply: 09/02 Rx Expiration Date: 11/19/24 Refills Remainin Indication: FOR SKIN OR EYE CONDITION OUTPT FLUOXETINE HCL 20MG CAP (Status = Active) TAKE ONE CAPSULE BY MOUTH DAILY FOR MOOD Rx# [id number] Last Released: 05/09/24 Qty/Days Supply: 90/90 Rx Expiration Date: 05/10/25 Refills Remainin OUTPT GABAPENTIN 300MG CAP (Status = Active) TAKE TWO CAPSULES BY MOUTH TWICE A DAY FOR NERVE PAIN Rx# [id number] Last Released: 11/17/24 Qty/Days Supply: 120/30 Rx Expiration Date: 06/12/25 Refills Remainin Indication: FOR NERVE PAIN OUTPT [id number] PENTOXIFYLLINE SA 400MG/PBO (Status = ) TAKE ONE TABLET BY MOUTH TWICE A DAY WITH FOOD. SWALLOW WHOLE-DO NOT CHEW, CRUSH OR CUT Rx# [id number] Last Released: 06/24/24 Qty/Days Supply: 200/90 Rx Expiration Date: 09/21/24 Refills Remainin OUTPT [id number] PENTOXIFYLLINE SA 400MG/PBO (Status = Active) TAKE ONE TABLET BY MOUTH TWICE A DAY WITH FOOD. SWALLOW WHOLE-DO NOT CHEW, CRUSH OR CUT Rx# [id number] Last Released: 09/22/24 Qty/Days Supply: 200/90 Rx Expiration Date: 12/21/24 Refills Remainin OUTPT LISINOPRIL 40MG TAB (Status = Active) TAKE ONE TABLET BY MOUTH DAILY FOR BLOOD PRESSURE/HEART Rx# [id number] Last Released: 11/26/24 Qty/Days Supply: 90/90 Rx Expiration Date: 05/10/25 Refills Remainin OUTPT METFORMIN HCL 500MG TAB (Status = Active) TAKE ONE TABLET BY MOUTH TWICE A DAY FOR DIABETES Rx# [id number] Last Released: 10/10/24 Qty/Days Supply: 180/90 Rx Expiration Date: 05/21/25 Refills Remainin Indication: FOR BLOOD SUGAR OUTPT PANTOPRAZOLE NA 40MG EC TAB (Status = Active) TAKE ONE TABLET BY MOUTH TWICE A DAY 30 MINUTES BEFORE A MEAL FOR STOMACH, 30 MINUTES BEFORE A MEAL. TAKE ON AN EMPTY STOMACH. Rx# [id number] Last Released: 11/04/24 Qty/Days Supply: 180/90 Rx Expiration Date: 05/10/25 Refills Remainin OUTPT SODIUM CHLORIDE 0.9% IRRG SOLN 500ML (Status = Active) IRRIGATE SMALL AMOUNT (500ML BOTTLE) IRRIGATION DIRECTED FOR WOUND CARE Rx# [id number] Last Released: 11/25/24 Qty/Days Supply: 10/26 Rx Expiration Date: 11/20/25 Refills Remainin Indication: FOR WOUND CARE OUTPT SPIRONOLACTONE 25MG TAB (Status = Active) TAKE ONE TABLET BY MOUTH DAILY FOR BLOOD PRESSURE/HEART Rx# [id number] Last Released: 11/04/24 Qty/Days Supply: Rx Expiration Date: 04/29/25 Refills Remainin SUPPLIES OUTPT ACCU-CHEK GUIDE (GLUCOSE) TEST STRIP (Status = Active) USE 1 STRIP TO TEST BLOOD SUGAR DIRECTED LIMIT 50 STRIPS EVERY 90 DAYS Rx# [id number] Last Released: 04/18/24 Qty/Days Supply: Rx Expiration Date: 04/17/25 Refills Remainin OUTPT GAUZE PAD 4IN X 4IN 12-PLY STERILE (Status = Active) USE GAUZE GAUZE PAD 4IN X 4IN 12-PLY STERILE AFFECTED AREA TWICE A DAY FOR WOUND CARE MOISTEN WITH SALINE AND PACK WOUND Rx# [id number] Last Released: 11/27/24 Qty/Days Supply: Rx Expiration Date: 11/20/25 Refills Remainin Indication: FOR WOUND CARE OUTPT LANCET,SOFTCLIX (Status = Active) USE LANCET AFFECTED AREA DIRECTED Rx# [id number] Last Released: 04/18/24 Qty/Days Supply: 100/90 Rx Expiration Date: 04/17/25 Refills Remainin OUTPT TAPE,MICROPORE 2IN #1530-2 (Status = Active) TAPE TAPE,PAPER 2IN AFFECTED AREA DIRECTED Rx# [id number] Last Released: 11/23/24 Qty/Days Supply: Rx Expiration Date: 11/20/25 Refills Remainin /arleth/ Charito HOLLAND OPC STENOCAPTIONER Signed: 12/10/2024 10:17 CHARITO DC-[facility]
--- OUTSIDE RECORDS SUMMARY | 2024-12-24 04:30 | XMS_ITS | Encounter Summary ---
Author Name [facility] [place] [facility] [place] Address [address] [place] [address] Care Team Providers Care Tractor Technician Name Role Phone ESTELAMAYLIN Primary Care Provider [...] RISSA SHIRLEY Mar 04, 2012 RISSA RODRIGUEZ [id number] NORMA SHELBY PATIENT [employer]MANA [facility] (WNR) MEDICARE ADVANTAGE [facility] (WNR) Jul 30, 2017 [id number] HERONNORMA WELLINGTON PATIENT [employer] [facility] (WNR) MEDICARE ADVANTAGE [facility](W NR) Jul 30, 2017 [id number] [phone] HERONNORMAJoel PARIS PATIENT [employer] [facility] (WNR) [facility] MEDIC ARE BRAULIO Connell Jul 30, 2012 [id number] NORMA SHELBY PATIENT MEDICARE (WNR) MEDICARE (M) PART A Jul 30, 2017 PART A [id number] NORMA SHELBY PATIENT MEDICARE (WNR) MEDICARE (M) PART B Jul 30, 2017 PART B [id number] NORMA SHELBY PATIENT MEDICARE PART D (WNR) PRESCRIPT ION PART D Jul 30, 2017 PART D [id number] NORMA SHELBY PATIENT MEDICARE PART D (WNR) MEDICARE (M) PART D Jul 30, 2017 PART D [id number] NORMA SHELBY PATIENT MEDICARE PART D (WNR) MEDICARE (M) PART D Jul 30, 2017 PART D [id number] NORMA SHELBY PATIENT MEDICARE PART D (WNR) MEDICARE (M) PART D Jul 30, 2012 PART D [id number] NORMA SHELBY PATIENT Selected Encounter This section includes the information on record at [place] for the Encounter. Date/Time Encounter Type Encounter Description Reason Provider Source December 24, 2024 08:30 AM OFFICE O/P EST MOD 30 MIN CARDIOLOGY ICD-10-CM I48.0 Paroxysmal atrial fibrillation BELEN SANDERS Encounter Template Text not used by [place] Assessments - Encounter Diagnoses This section includes the primary and secondary diagnoses documented for the Encounter. Date/Time Primary/Secondary Diagnosis Diagnosis Name Provider Source December 24, 2024 09:46 AM PRIMARY Paroxysmal atrial fibrillation ILAN ERWIN [facility] December 24, 2024 09:46 AM SECONDARY Chronic kidney disease, stage 3 unspecified ILAN ERWIN [facility] December 24, 2024 09:46 AM SECONDARY Essential (primary) hypertension ILAN ERWIN [facility] December 24, 2024 09:46 AM SECONDARY Mixed hyperlipidemia ILAN ERWIN [facility] December 24, 2024 09:46 AM SECONDARY Type 2 diabetes mellitus w diabetic chronic kidney disease ILAN ERWIN [facility] Plan of Treatment: Future Appointments (+ 6 months) and Future Tests (+/- 45 days) The Plan of Treatment section includes future care activities for the patient [facility] [place] [facility] This section includes future appointments and future orders which are active, pending or scheduled. Future Appointments This section includes appointments that were scheduled to occur 6 months from the date of the Encounter, up to a maximum of 20 appointments. The data comes from all [place] treatment facilities. Appointment Date/Time Appointment Type Appointme nt Facility Name Jan 28, 2025 01:30 PM [facility] Feb 04, 2025 09:00 AM AMBULATORY - SURGERY [place] [facility] Mar 16, 2025 11:30 AM [facility]BULATORY - NONE [facility] Mar 18, 2025 09:30 AM [facility]ORY - MEDICINE [facility] Apr 29, 2025 09:30 AM [facility] - MEDICINE [facility] May 06, 2025 08:40 AM [facility] Lab Results: +/- 30 days of the encounter This section includes the Chemistry and Hematology Lab Results on record with DC for the patient. Radiology Reports and Pathology Reports are provided separately, in subsequent sections. Lab Results This section contains the Chemistry/Hematology Results that were resulted 30 days before or 30 daysafter the date of the Encounter. Date/Time Source Result Type Result - Unit Interpretation Reference Range Specimen Type Comment December 24, 2024 09:18 AM [facility] eGFR + CREATININE PLASMA Specimen Type: [...] December 23, 2024 04:13 PM Reporting Lab: [address] [id number] Performing Lab: [address] [id number] CREATININE 1.99 mg/dL H 0.72-1.25 eGFR (CKD-EPI) 33 Vital Signs: All taken on the encounter date This section contains inpatient and outpatient Vital Signs collected on the date of the Encounter. Date/Time Temperature Pulse Blood Pressure Respiratory Rate SP02 Pain Height Weight Body Mass Index Source December 24, 2024 08:32 AM 98.3 74 135/67 94 0 328.6 45 [facility] Social History: Smoking Status (Most current) [...] PM V9 QUIT TOBACCO >7 YEARS AGO [facility] Tobacco Use History This section includes a history of the smoking, or tobacco-related health factors, that were collected on or before the date of the Encounter. The data comes from the [facility] where the Encounter took place. 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 CREW SUPERVISOR .[address] [place] [address] Sep 19, 2005 02:18 PM HF V9 CURRENT SMOKER SMOKES ABOUT 1/2 PPD [facility] Feb 07, 2005 02:38 PM HF V9 SECOND TOBACCO ANODE CREW SUPERVISOR .[address] [place] [address] Aug 30, 2004 11:28 AM HF V9 THIRD TOBACCO ANODE CREW SUPERVISOR SMOKES UP TO 1 PACK EVERY COUPLE OF DAYS [facility] Mar 15, 2004 03:48 PM HF V9 CURRENT SMOKER .[address] [place] [address] Sep 01, 2003 11:25 AM HF V9 SECOND TOBACCO ANODE CREW SUPERVISOR 10 CIGARETTES A DAY [facility] Oct 21, 2002 12:42 PM HF V9 CURRENT SMOKER 1 pack a day [facility] Encounter Notes: All associated encounter notes This section contains the clinical notes associated to the Encounter. Date/Time Encounter Note(s) Provider Source December 24, 2024 08:46 AM NURSING OUTPATIENT NOTE: LOCAL TITLE: [facility] INTAKE NOTE STANDARD TITLE: NURSING OUTPATIENT NOTE DATE OF NOTE: DECEMBER 24, 2024@08:46 ENTRY DATE: DECEMBER 24, 2024@08:46:30 AUTHOR: ROMMEL JOHNSON COSIGNER: URGENCY: STATUS: COMPLETED Reason for visit/chief complaint: B/P: 135/67 (12/24/2024 08:32) P: 74 (12/24/2024 08:32) R: 18 (12/10/2024 10:10) T: 98.3 F [36.8 C] (12/24/2024 08:32) HT: 72.0 in [182.9 cm] (05/09/2024 10:22) WT: 328.6 lb [149.05 kg] (12/24/2024 08:32) Are you having any pain or recurrent pain in the last several weeks/months? No Location: Duration: Characteristics: Pain education material offered to patient (for pain > 3) No Risk factors history: Hypertension Yes Have you taken your blood pressure medication today? Yes Do you have a BP cuff at home? Yes Does the home BP cuff work and is used at home? Yes What does your blood pressure run at home? 130/60 Comments: States, I have to lose weight. This is the result of just eating and watching TV. BP Rechecked: No Manual blood pressure taken: No Primary Care commissary production supervisor notified of elevated BP greater of 140/90: No Patient notified operational test mechanic available upon request for any examinations/procedures. The [...] patient Medication Reconciliation ACTIVE OUTPATIENT MEDICATIONS LOCAL/REMOTE APIXABAN 5MG TAB Directions: TAKE ONE-HALF TABLET BY MOUTH TWICE A DAY TO THIN BLOOD -CALL ANTICOAGULATION CLINIC [phone] WITH QUESTIONS OR CONCERNS Quantity: 90 for 90 days Issued: 04/10/24 Filled: 11/01/24 Expires: 04/11/25 Refills: 1 Status: ACTIVE ARTIFICIAL TEARS POLYVINYL ALCOHOL Directions: PUT 1 DROP IN BOTH EYES TWICE A DAY FOR DRY EYES Quantity: 15 for 30 days Issued: 11/04/24 Filled: 12/25/24 Expires: 11/05/25 Refills: 2 Status: ACTIVE ATORVASTATIN CALCIUM 40MG TAB Directions: TAKE ONE-HALF TABLET BY MOUTH DAILY FOR CHOLESTEROL Quantity: 45 for 90 days Issued: 05/09/24 Filled: 11/29/24 Expires: 05/10/25 Refills: 1 Status: ACTIVE CARVEDILOL 25MG TAB Directions: TAKE ONE TABLET BY MOUTH TWICE A DAY FOR HEART/BLOOD PRESSURE Quantity: 180 for 90 days Issued: 05/20/24 Filled: 10/21/24 Expires: 05/21/25 Refills: 2 Status: ACTIVE FLUOXETINE HCL 20MG CAP Directions: TAKE ONE CAPSULE BY MOUTH DAILY FOR MOOD Quantity: 90 for 90 days Issued: 05/09/24 Filled: 05/09/24 Expires: 05/10/25 Refills: 3 Status: ACTIVE GABAPENTIN 300MG CAP Directions: TAKE TWO CAPSULES BY MOUTH TWICE A DAY FOR NERVE PAIN Quantity: 120 for 30 days Issued: 12/15/24 Filled: 12/15/24 Expires: 12/16/25 Refills: 5 Status: ACTIVE GAUZE PAD 4IN X 4IN 12-PLY STERILE Directions: USE GAUZE GAUZE PAD 4IN X 4IN 12-PLY STERILE AFFECTED AREA TWICE A DAY FOR WOUND CARE MOISTEN WITH SALINE AND PACK WOUND Quantity: 100 for 30 days Issued: 11/19/24 Filled: 11/20/24 Expires: 11/20/25 Refills: 2 Status: ACTIVE [id number] PENTOXIFYLLINE SA 400MG/PBO Directions: TAKE ONE TABLET BY MOUTH TWICE A DAY WITH FOOD. SWALLOW WHOLE-DO NOT CHEW, CRUSH OR CUT Quantity: 200 for 90 days Issued: 12/17/24 Filled: 12/18/24 Expires: 03/17/25 Refills: 0 Status: ACTIVE LISINOPRIL 40MG TAB Directions: TAKE ONE TABLET BY MOUTH DAILY FOR BLOOD PRESSURE/HEART Quantity: 90 for 90 days Issued: 05/09/24 Filled: 11/21/24 Expires: 05/10/25 Refills: 1 Status: ACTIVE METFORMIN HCL 500MG TAB Directions: TAKE ONE TABLET BY MOUTH TWICE A DAY FOR DIABETES Quantity: 180 for 90 days Issued: 05/20/24 Filled: 10/16/24 Expires: 05/21/25 Refills: 2 Status: ACTIVE PANTOPRAZOLE NA 40MG EC TAB Directions: TAKE ONE TABLET BY MOUTH TWICE A DAY 30 MINUTES BEFORE A MEAL FOR STOMACH, 30 MINUTES BEFORE A MEAL. TAKE ON AN EMPTY STOMACH. Quantity: 180 for 90 days Issued: 05/09/24 Filled: 11/01/24 Expires: 05/10/25 Refills: 2 Status: ACTIVE SODIUM CHLORIDE 0.9% IRRG SOLN 500ML Directions: IRRIGATE SMALL AMOUNT (500ML BOTTLE) IRRIGATION DIRECTED FOR WOUND CARE Quantity: 3 for 30 days Issued: 11/19/24 Filled: 11/20/24 Expires: 11/20/25 Refills: 2 Status: ACTIVE SPIRONOLACTONE 25MG TAB Directions: TAKE ONE TABLET BY MOUTH DAILY FOR BLOOD PRESSURE/HEART Quantity: 90 for 90 days Issued: 04/28/24 Filled: 11/19/24 Expires: 04/29/25 Refills: 1 Status: ACTIVE TAPE,MICROPORE 2IN #1530-2 Directions: TAPE TAPE,PAPER 2IN AFFECTED AREA DIRECTED Quantity: 2 for 30 days Issued: 11/19/24 Filled: 11/20/24 Expires: 11/20/25 Refills: 2 Status: ACTIVE CHLORTHALIDONE 25MG TAB Directions: TAKE ONE TABLET BY MOUTH DAILY FOR BLOOD PRESSURE Quantity: 90 for 90 days Issued: 05/09/24 Filled: 01/30/25 Expires: 05/10/25 Refills: 1 Status: ACTIVE/SUSP No remote medications found. PENDING OUTPATIENT MEDICATONS (LOCAL/REMOTE): No local medications found. No remote medications found. ACTIVE NONVA MEDICATIONS (LOCAL): No local medications found. OUTPATIENT MEDICATIONS (LOCAL)WITHIN 90 DAYS: CHLORTHALIDONE 25MG TAB Directions: TAKE ONE TABLET BY MOUTH DAILY FOR BLOOD PRESSURE Quantity: 90 for 90 days Issued: 05/09/24 Filled: 01/30/25 Expires: 05/10/25 Refills: 1 Status: ACTIVE/SUSP DOXYCYCLINE HYCLATE 100MG TAB Directions: TAKE ONE TABLET BY MOUTH TWICE A DAY Quantity: 14 for 7 days Issued: 10/20/24 Filled: 10/20/24 Expires: 11/19/24 Refills: 0 Status: DISCONTINUED OUTPATIENT MEDICATIONS (LOCAL) WITHIN 90 DAYS: CHLORTHALIDONE 25MG TAB Directions: TAKE ONE TABLET BY MOUTH DAILY FOR BLOOD PRESSURE Quantity: 90 for 90 days Issued: 05/09/24 Filled: 01/30/25 Expires: 05/10/25 Refills: 1 Status: ACTIVE/SUSP ACCU-CHEK GUIDE (GLUCOSE) TEST STRIP Directions: USE 1 STRIP TO TEST BLOOD SUGAR DIRECTED LIMIT 50 STRIPS EVERY 90 DAYS Quantity: 50 for 90 days Issued: 04/16/24 Filled: 04/18/24 Expires: 04/17/25 Refills: 3 Status: DISCONTINUED APIXABAN 5MG TAB Directions: TAKE ONE-HALF TABLET BY MOUTH TWICE A DAY TO THIN BLOOD -CALL ANTICOAGULATION CLINIC [phone] WITH QUESTIONS OR CONCERNS Quantity: 60 for 60 days Issued: 11/22/23 Filled: 02/26/24 Expires: 11/22/24 Refills: 5 Status: DISCONTINUED ATORVASTATIN CALCIUM 40MG TAB Directions: TAKE ONE-HALF TABLET BY MOUTH DAILY FOR CHOLESTEROL Quantity: 45 for 90 days Issued: 05/09/24 Filled: 07/16/24 Expires: 05/10/25 Refills: 3 Status: DISCONTINUED CHLORTHALIDONE 25MG TAB Directions: TAKE [...] 02/29/24 Expires: 10/08/24 Refills: 0 Status: DISCONTINUED GABAPENTIN 300MG CAP Directions: TAKE TWO CAPSULES BY MOUTH TWICE A DAY FOR NERVE PAIN Quantity: 120 for 30 days Issued: 06/11/24 Filled: 11/13/24 Expires: 06/12/25 Refills: 0 Status: DISCONTINUED [id number] PENTOXIFYLLINE SA 400MG/PBO Directions: TAKE ONE TABLET BY MOUTH TWICE A DAY WITH FOOD. SWALLOW WHOLE-DO NOT CHEW, CRUSH OR CUT Quantity: 200 for 90 days Issued: 09/22/24 Filled: 09/22/24 Expires: 12/21/24 Refills: 0 Status: DISCONTINUED LANCET,SOFTCLIX Directions: USE LANCET AFFECTED AREA DIRECTED Quantity: 100 for 90 days Issued: 04/16/24 Filled: 04/18/24 Expires: 04/17/25 Refills: 3 Status: DISCONTINUED METOPROLOL TARTRATE 50MG [...] OTC medications as listed on [facility] medication list provided. Vet provided medication list to review prior to appointment and physician will update this medication list with any changes at time of visit. Yes *Printed copy of medication list provided to patient and reviewed. Yes *Explained to the patient the importance of keeping providers updated on medication changes and to carrying an updated list of medication at all times in case of an emergency situation. Yes /arleth/ BEN ESQUEDA, RN, CWRN, OMS WOCN Signed: 12/24/2024 08:51 ROMMEL JOHNSON[facility] December 24, 2024 07:23 AM CARDIOLOGY NOTE: LOCAL TITLE: CARDIOLOGY CLINIC PROVIDER NOTE STANDARD TITLE: CARDIOLOGY NOTE DATE OF NOTE: DECEMBER 24, 2024@07:23 ENTRY DATE: DECEMBER 24, 2024@07:23:09 AUTHOR: ILAN ERWIN EXP COSIGNER: BELEN SANDERS URGENCY: STATUS: COMPLETED CARDIOLOGY CLINIC PROVIDER NOTE Has ADDENDA CARDIOLOGY CLINIC NOTE Reason for visit: Cardiology follow up Cardiovascular Problem List: 1. Paroxysmal Atrial Fibrillation 2. HTN, controlled 3. HLD, controlled 4. CKD HPI: CHELSEY SHELBY is a 79 year old MALE with ROWAN, HTN, HLD, CKD, ROWAN, paroxysmal atrial fibrillation who presents for 6 month follow up today. Patient overall reports doing well. He has gained ~15 lbs since last visit but reports that he has been less active as well. He is going to work on slowly increasing activity. Denies any chest pain, worsening leg swelling, or palpitations. Denies any bleeding issues while on anticoagulation. ROS: Reviewed and negative except as listed above in HPI. PMHx: Active problems - Computerized Problem List is the source for the followin. Benign hypertensive renal disease 2. Paroxysmal atrial fibrillation 3. Long-term current use of anticoagulant 4. Chronic Kidney Disease Stage 3 ([facility] [id number]) 5. Chronic pain 6. Long-term current use of oral hypoglycemic medication 7. Exertional dyspnea 8. Anemia 9. 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 Acquired trigger finger of left index finger 11. Diabetic neuropathy 12. Jay's Esophagus (SCT [id number]) repeat due 01/2021 13. Adenomatous polyp of [...] 20. Lumbar spondylosis with myelopathy (SNOMED CT [id number]) 21. Personal History of Venous Thrombosis and Embolism 22. Obstructive sleep apnea syndrome (SNOMED CT [id number]) 23. Obesity (SNOMED CT 454526572) 24. Mixed hyperlipidemia (SNOMED CT 701380416) 25. Benign hypertensive renal disease PSHx: Reviewed and unchanged from previous Social Hx: Reviewed and unchanged from previous Family Hx: Reviewed and unchanged from previous Medications: Active Outpatient Medications (including Supplies): Active Outpatient Medications Status 1) APIXABAN 5MG TAB TAKE ONE-HALF TABLET BY MOUTH TWICE A DAY ACTIVE -CALL ANTICOAGULATION CLINIC [phone] WITH QUESTIONS OR CONCERNS Indication: TO THIN BLOOD 2) ARTIFICIAL TEARS POLYVINYL ALCOHOL PUT 1 DROP IN BOTH EYES ACTIVE TWICE A DAY Indication: FOR DRY EYES 3) ATORVASTATIN CALCIUM 40MG TAB TAKE ONE-HALF TABLET BY MOUTH ACTIVE DAILY FOR CHOLESTEROL 4) CARVEDILOL 25MG TAB TAKE ONE TABLET BY MOUTH TWICE A DAY ACTIVE Indication: FOR HEART/BLOOD PRESSURE 5) CHLORTHALIDONE 25MG TAB TAKE ONE TABLET BY MOUTH DAILY ACTIVE (S) Indication: FOR BLOOD PRESSURE 6) FLUOXETINE HCL 20MG CAP TAKE ONE CAPSULE BY MOUTH DAILY FOR ACTIVE MOOD 7) GABAPENTIN 300MG CAP TAKE TWO CAPSULES BY MOUTH TWICE A DAY ACTIVE Indication: FOR NERVE PAIN 8) GAUZE PAD 4IN X 4IN 12-PLY STERILE USE GAUZE GAUZE PAD 4IN X ACTIVE 4IN 12-PLY STERILE AFFECTED AREA TWICE A DAY MOISTEN WITH SALINE AND PACK WOUND Indication: FOR WOUND CARE 9) [id number] PENTOXIFYLLINE SA 400MG/PBO TAKE ONE TABLET BY ACTIVE MOUTH TWICE A DAY WITH FOOD. SWALLOW WHOLE-DO NOT CHEW, CRUSH OR CUT 10) LISINOPRIL 40MG TAB TAKE ONE TABLET [...] MEAL. TAKE ON AN EMPTY STOMACH. 13) SODIUM CHLORIDE 0.9% IRRG SOLN 500ML IRRIGATE SMALL AMOUNT ACTIVE (500ML BOTTLE) IRRIGATION DIRECTED Indication: FOR WOUND CARE 14) SPIRONOLACTONE 25MG TAB TAKE ONE TABLET BY MOUTH DAILY FOR ACTIVE BLOOD PRESSURE/HEART 15) TAPE,MICROPORE 2IN 3M #1530-2 TAPE TAPE,PAPER 2IN AFFECTED ACTIVE AREA DIRECTED Allergies/Adverse Reactions: Patient has answered NKA Relevant Imaging/Procedures: No new imaging. Physical Exam: Vitals: TEMP: 98.5 F [36.9 C] (12/10/2024 10:10) PULSE:74 (12/10/2024 10:10) BP: 127/61 (12/10/2024 10:10) RESP: 18 (12/10/2024 10:10) Pulse Ox: DECEMBER 10, 2024@10:10 -- PULSE OXIMETRY: 93 WT: 315.0 lb [142.88 kg] (12/10/2024 10:10) Gen: A&Ox3, NAD HEENT: Normocephalic/Atraumatic, MMM Neck: Supple, no JVD Pulm: Normal work of breathing, CTA bilaterally with no wheezes or crackles CV: Regular rate, no murmur appreciated Neuro: Alert and oriented, needs wheelchair for longer distances when going to appointments. Psych: Normal affect, answers questions appropriately Assessment/Plan: CHELSEY SHELBY is a 79 year old MALE with a past medical history as described above who presented today for cardiology follow up. Paroxysmal atrial fibrillation -holter monitor with sinus rhythm only, rate 55-89 bpm -CHADsVASc2 = 4 -patient denies any symptoms, previous ECHO 2022 with preserved EF and no signficant valvular disease PLAN: -continue Eliquis 5mg BID and carvedilol 25mg BID Essential hypertension, well controlled - BP is well controlled today in clinic. - Patient follows with renal given CKD. Last labs 08/2024 with creatinine 2.27 and potassium of 5. - Current regimen: carvedilol, spironolactone, chlorthalidone, lisinopril. PLAN: - No changes to regimen today. Hyperlipidemia, other: -LDL 81 on . -Continue atorvastatin 40 mg QHS CKD - Last labs 08/2024 with creatinine 2.27 and potassium of 5. - Patient follows with renal. Follow Up: RTC 6 months I spent 30 minutes, reviewing history, performing an exam and evaluation, entering clinic information in the EHR, interpreting result, counseling patient/family/caregiver, reviewing X-rays/mri/labs, ordering meds/test/procedures, referring and communicating with consulting health professionals, and care coordination. /arleth/ ILAN ERWIN Dance Hall Host/Hostess Signed: 12/24/2024 09:46 /arleth/ BELEN SANDERS CHIEF, CARDIOLOGY SECTION (111B) Cosigned: 12/24/2024 10:24 12/24/2024 ADDENDUM STATUS: COMPLETED exited clinic per MD. All medications and treatment plan was discussed with prior to exiting clinic by MD. Purling to RTC 6 months [facility] FELLOW 5 via F2F. Per provider order/instruction above. If this provider is not available or requires overbook please alert Wildlife Science Professor. Appointment letter to be mailed. - Continue Eliquis 5mg BID. - Patient follows with renal given CKD. Last labs 08/2024 with creatinine 2.27 and potassium of 5. - Current regimen: carvedilol, spironolactone, chlorthalidone, lisinopril. No changes to regimen today. - Continue atorvastatin 40 mg QHS - Patient follows with renal. /arleth/ Belen Mars RN IR RN Signed: 12/24/2024 14:19 01/22/2025 ADDENDUM STATUS: COMPLETED Received manju's ED visit report from [facility]. Spoke with , on phone, on 01/21/25. Manju reports no chest pain currently. He states that he was sent home on a 48 hour holter monitor, returned it, and then sent home on a 2 week monitor. Manju states he is still wearing current monitor. He will return it to [facility] in about [address] Ilan Erwin, Fellow 5, about . She would like a follow up visit with . First opening, in clinic, is March 18, 2025. Dr. Erwin states that will be fine, due to waiting on holter monitor results, usually [address] Erwin requests Wildlife Science Professor to let know to call Cardiology if he begins to have chest pain again to see if there is an earlier appt available. If chest pain continue to worsen, instruct to go to the ED. Case Mangager will request holter monitor results to be faxed to [phone] on the first week of February. Wildlife Science Professor spoke with , on the phone today, and updated him on above information. is agreeable with instructions and follow up appt on 03/18/2025. Messaged Karo Chamberlain to schedule for 03/18/25 at 0930. /es/ JOANA TAYLOR Registered Nurse Signed: 01/22/2025 12:12 ILAN ERWIN-[facility]
--- OUTSIDE RECORDS SUMMARY | 2025-01-09 10:58 | XMS_ITS | Encounter Summary ---
Author Name [facility] [place] [facility] [place] [facility] [place] Address [address] [place] [address] Care Team Providers Care String Top Sealer Name Role Phone ESTELA DEJAN Primary Care [...] RISSA SHIRLEY Mar 04, 2012 RISSA RODRIGUEZ [id number] HERONNORMA RICHARDS [place] PATIENT [employer] [facility] (WNR) MEDICARE ADVANTAGE [facility] (WNR) Jul 30, 2017 [id number] [phone] HERON,NORMA [place] PATIENT [employer] [facility] (WNR) MEDICARE ADVANTAGE [facility](W NR) Jul 30, 2017 [id number] [phone] HERON,NORMA [place] PATIENT [employer] [facility] (WNR) [facility] ARE BRAULIO Connell Jul 30, 2012 [id number] [phone] NORMA SHELBY PATIENT MEDICARE (WNR) MEDICARE (M) PART A Jul 30, 2017 PART A [id number] NORMA SHELBY PATIENT MEDICARE (WNR) MEDICARE (M) PART B Jul 30, 2017 PART B [id number] NORMA SHELBY PATIENT MEDICARE PART D (WNR) PRESCRIPT ION PART D Jul 30, 2017 PART D [id number] NORMA SHELBY PATIENT MEDICARE PART D (WNR) MEDICARE (M) PART D Jul 30, 2017 PART D [id number] NORMA SHELBY PATIENT MEDICARE PART D (WNR) MEDICARE (M) PART D Jul 30, 2017 PART D [id number] NORMA SHELBY PATIENT MEDICARE PART D (WNR) MEDICARE (M) PART D Jul 30, 2012 PART D [id number] NORMA SHELBY PATIENT Selected Encounter This section includes the information on record at [place] for the Encounter. Date/Time Encounter Type Encounter Description Reason Pro vider Source Jan 09, 2025 02:58 PM Outpatient Encounter ADMIN PAT ACTIVTIES (MASNONCT) IHE Encounter Template Text not used by [place] Plan of Treatment: Future Appointments (+ 6 [...] PM AMBULATORY - REHAB MEDICIN E LEVAR [facility] Feb 04, 2025 09:00 AM AMBULATORY - SURGERY CARLOSIN GORDON [facility] Mar 16, 2025 11:30 AM AMBULATORY - NONE [place] [facility] Mar 18, 2025 09:30 AM AMBULATORY - MEDICINE [facility] Apr 29, 2025 09:30 AM AMBULATORY - MEDICINE [facility] May 06, 2025 08:40 AM AMBULATORY - SURGERY IVORY [facility] Lab Results: +/- 30 days of [...] Type Comment December 24, 2024 09:18 [facility]IN[facility]ASMA Specimen Type: [...] December 23, 2024 04:13 PM Reporting Lab: [address] [address] Performing Lab: [address] [address] CREATININE 1.99 mg/dL H 0.72-1.25 eGFR (CKD-EPI) [...] V9 QUIT TOBACCO >7 YEARS AGO [facility] Tobacco Use History This section includes a history of the smoking, or tobacco-related health factors, that were collected on or before the date of the Encounter. The data comes from the [place] facility where the Encounter took place. Date/Time Smoking Status/Tobac co Use Comment Facility Sep 25, 2007 07:04 PM TOBACCO OFFERRED PT MEDS (PROVIDER) [facility] Sep 25, 2007 07:04 PM V9 CURRENT TOBACCO USER [facility] Sep 25, 2007 07:04 PM V9 TOBACCO OFFERED [facility] Aug 16, 2006 05:31 PM TOBACCO OFFERRED PT MEDS (PROVIDER) [facility] Aug 16, 2006 05:31 PM V9 CURRENT TOBACCO USER [facility] Aug 16, 2006 05:31 PM V9 TOBACCO OFFERED [facility] Feb 08, 2006 02:21 PM HF V9 SECOND TOBACCO FIELD TAX AUDITOR .5ppd [facility] Sep 19, 2005 02:18 PM HF V9 CURRENT SMOKER SMOKES ABOUT 1/2 PPD [facility] Feb 07, 2005 02:38 PM HF V9 SECOND TOBACCO FIELD TAX AUDITOR .5ppd [facility] Aug 30, 2004 11:28 AM HF V9 THIRD TOBACCO FIELD TAX AUDITOR SMOKES UP TO 1 PACK EVERY COUPLE OF DAYS [facility] Mar 15, 2004 03:48 PM HF V9 CURRENT SMOKER [address] [place] [address] Sep 01, 2003 11:25 AM HF V9 SECOND TOBACCO FIELD TAX AUDITOR 10 CIGARETTES A DAY [facility] Oct 21, 2002 12:42 PM HF V9 CURRENT SMOKER 1 pack a day [facility] Encounter Notes: All associated encounter notes This section contains the clinical notes associated to the Encounter. Date/Time Encounter Note(s) Provider Source Jan 08, 2025 12:00 PM ADDENDUM: LOCAL TITLE: Addendum STANDARD TITLE: ADDENDUM DATE OF NOTE: JAN 08, 2025@12:00 ENTRY DATE: JAN 12, 2025@09:04:37 AUTHOR: JERE MAGANA EXP COSIGNER: URGENCY: STATUS: COMPLETED VistA Imaging Scanned Document - Addendum. [facility] 01/07-01/08/2025 DC SUMMARY [id number] SCANNED DOCUMENT SIGNATURE NOT REQUIRED Electronically Filed: 01/12/2025 by: JERE MAGANA [facility] C.O.D. Biller Receipt Acknowledged By: 01/12/2025 10:33 /es/ TORY CONTRERAS, RN PC LUMBER SCALER --- Original Document --- 01/07/25 [facility] PRESENTING CARE COORD PLAN NOTE: Emergency Notification Intake Date Presenting to the Facility: Dec Date of note has been modified to reflect Date of Service. Reason for modification: HOSPITAL NOTIFICATION DATE/TIME: 01/08/2025 0743 EDT Method of Contact: Notified from ECR worklist Notification ID: [id number] [facility] Referral #: [facility] Name: Hospital: [facility] Address: City: [place] State: [place] Zip Code: Phone : [facility] Point of Contact: Name: Phone: Chief complaint: CHEST PAIN Primary Diagnosis: Disposition Admitted Route of Admission: ER Date of Admission: Dec Admitting Diagnosis: CHEST PAIN Community Care Provider: Confirm Level of Care: Acute Inpatient Care /arleth/ Lilian Black MSN, calender machine operator Nurse Coordinator Signed: 01/09/2025 15:00 Receipt Acknowledged By: 01/09/2025 15:12 /arleth/ TORY CONTRERAS, RN PC LUMBER SCALER 01/09/2025 15:14 /arleth/ Dejan Gutierrez MD Primary Care Attending 01/09/2025 ADDENDUM STATUS: COMPLETED PROVIDER CONTACT REQUEST TO FAX NUMBER LISTED ON ECR: [phone] PLEASE CALL THE [facility] TRANSFER OFFICE ([phone]) AND PROVIDE A CLINICAL UPDATE FOR THE ON THE ATTACHED FAX. IF THE IS STABLE FOR TRANSFER, PLEASE CALL THE [facility] TRANSFER OFFICE FOR AVAILABLITY AT: [phone] IF IS DISHCHARGED FROM THIS EPISODE OF CARE, PLEASE FAX DC SUMMARY TO: [phone] /arleth/ Lilian Black MSN, calender machine operator Nurse Coordinator Signed: 01/09/2025 15:04 JERE MAGANA [facility] Jan 07, 2025 03:30 PM NON[facility] NOTE: LOCAL TITLE: [facility] SELF PRESENTING CARE COORD PLAN STANDARD TITLE: NONVA NOTE DATE OF NOTE: JAN 07, 2025@15:30 ENTRY DATE: JAN 09, 2025@14:58:40 AUTHOR: LILIAN BLACK EXP COSIGNER: URGENCY: STATUS: COMPLETED [facility] SELF PRESENTING CARE COORD PLAN NOTE Has ADDENDA Emergency Notification Intake Date Presenting to the Facility: Dec Date of note has been modified to reflect Date of Service. Reason for modification: HOSPITAL NOTIFICATION DATE/TIME: 01/08/2025 0743 EDT Method of Contact: Notified from [facility] worklist Notification ID: [id number] Referral #: [facility] Name: Hospital: [facility] Address: City: [place] State: [place] Zip Code: Phone : [facility] Facility Point of Contact: Name: Phone: Chief complaint: CHEST PAIN Primary Diagnosis: Disposition Admitted Route of Admission: ER Date of Admission: Dec Admitting Diagnosis: CHEST PAIN Community Care Provider: Confirm Level of Care: Acute Inpatient Care /arleth/ Lilian Black MSN, calender machine operator Nurse Coordinator Signed: 01/09/2025 15:00 Receipt Acknowledged By: 01/09/2025 15:12 /arleth/ TORY CONTRERAS, RN PC LUMBER SCALER 01/09/2025 15:14 /arleth/ Dejan Gutierrez MD Primary Care Attending 01/09/2025 ADDENDUM STATUS: COMPLETED PROVIDER CONTACT REQUEST TO FAX NUMBER LISTED ON ECR: [phone] PLEASE CALL THE [facility] TRANSFER OFFICE ([phone]) AND PROVIDE A CLINICAL UPDATE FOR THE ON THE ATTACHED FAX. IF THE IS STABLE FOR TRANSFER, PLEASE CALL THE [facility] TRANSFER OFFICE FOR AVAILABLITY AT: [phone] IF IS DISHCHARGED FROM THIS EPISODE OF CARE, PLEASE FAX DC SUMMARY TO: [phone] /arleth/ Lilian Black MSN, calender machine operator Nurse Coordinator Signed: 01/09/2025 15:04 01/08/2025 ADDENDUM STATUS: COMPLETED VistA Imaging Scanned Document - Addendum. [facility] 01/07-01/08/2025 DC SUMMARY [id number] SCANNED DOCUMENT SIGNATURE NOT REQUIRED Electronically Filed: 01/12/2025 by: JERE MAGANA [facility] C.O.D. Biller Receipt Acknowledged By: * AWAITING SIGNATURE * TORY RAE GENEVIEVE M [facility]
--- OUTSIDE RECORDS SUMMARY | 2025-01-12 06:20 | XMS_ITS | Encounter Summary ---
Author Name [facility] [place] Address [address] [place] [address] Care Team Providers Care Test Grader Name Role Phone ESTELA MAYLIN Primary Care [...] RISSA SHIRLEY Mar 04, 2012 RISSA RODRIGUEZ [id number] HERONNORMA RICHARDS [place] PATIENT [facility]NA [facility] (WNR) MEDICARE ADVANTAGE [facility] (WNR) Jul 30, 2017 [id number] HERON,NORMA [place] PATIENT [facility] (WNR) MEDICARE ADVANTAGE [facility](W NR) Jul 30, 2017 [id number] HERON,NORMA [place] PATIENT [facility]NA [facility] (WNR) [facility] ARE BRAULIO Connell Jul 30, 2012 [id number] NORMA [place] PATIENT MEDICARE (WNR) MEDICARE (M) PART A Jul 30, 2017 PART A [id number] NORMA SHELBY PATIENT MEDICARE (WNR) MEDICARE (M) PART B Jul 30, 2017 PART B [id number] NORMA SHE[place] PATIENT MEDICARE PART D (WNR) PRESCRIPT ION PART D Jul 30, 2017 PART D [id number] NORMA SHEL[place] PATIENT MEDICARE PART D (WNR) MEDICARE (M) PART D Jul 30, 2017 PART D [id number] NORMA SHELBY PATIENT MEDICARE PART D (WNR) MEDICARE (M) PART D Jul 30, 2017 PART D [id number] NORMA SHELBY PATIENT MEDICARE PART D (WNR) MEDICARE (M) PART D Jul 30, 2012 PART D [id number] NORMA SHELBY PATIENT Selected Encounter This section includes the information on record at [place] for the Encounter. Date/Time Encounter Type Encounter Description Reason Pro vider Source Jan 12, 2025 10:20 AM Outpatient Encounter ADMIN PAT ACTIVTIES (MASNONCT) IHE Encounter Template Text not used by [place] Plan of Treatment: Future Appointments (+ 6 [...] PM AMBULATORY - [facility] Feb 04, 2025 09:00 AM AMB[facility] Mar 16, 2025 11:30 AM [facility] Mar 18, 2025 09:30 AM AMBULATORY - MEDICINE [facility]MY [facility] Apr 29, 2025 09:30 AM AMBULATORY - MEDICINE [facility]MY [facility] May 06, 2025 08:40 AM AMBULATORY - SURGERY IVORY LEYVA [facility] Lab Results: +/- 30 days of the [...] Comment December 24, 2024 09:18 AM [facility] + CREATININE PLASMA Specimen Type: PLASMA [...] 23, 2024 04:13 PM Reporting Lab: [address] [address] Performing Lab: [address] [address] CREATININE 1.99 mg/dL H 0.72-1.25 eGFR (CKD-EPI) [...] PM V9 QUIT TOBACCO >7 YEARS AGO [facility] Tobacco Use History This section includes a history of the smoking, or tobacco-related health factors, that were collected on or before the date of the Encounter. The data comes from the [place] facility where the Encounter took place. Date/Time Smoking Status/Tobac co Use Comment Facility Sep 25, 2007 07:04 PM TOBACCO OFFERRED PT MEDS (PROVIDER) [facility] Sep 25, 2007 07:04 PM V9 CURRENT TOBACCO USER [facility] Sep 25, 2007 07:04 PM V9 TOBACCO OFFERED [facility] Aug 16, 2006 05:31 PM TOBACCO OFFERRED PT MEDS (PROVIDER) [facility] Aug 16, 2006 05:31 PM V9 CURRENT TOBACCO USER [facility] Aug 16, 2006 05:31 PM V9 TOBACCO OFFERED [facility] Feb 08, 2006 02:21 PM HF V9 SECOND TOBACCO FLARE STITCHER .5ppd [facility] Sep 19, 2005 02:18 PM HF V9 CURRENT SMOKER SMOKES ABOUT 1/2 PPD [facility] Feb 07, 2005 02:38 PM HF V9 SECOND TOBACCO FLARE STITCHER .5ppd [facility] Aug 30, 2004 11:28 AM HF V9 THIRD TOBACCO FLARE STITCHER SMOKES UP TO 1 PACK EVERY COUPLE OF DAYS [facility] Mar 15, 2004 03:48 PM HF V9 CURRENT SMOKER .pd [facility] Sep 01, 2003 11:25 AM HF V9 SECOND TOBACCO FLARE STITCHER 10 CIGARETTES A DAY [facility] Oct 21, 2002 12:42 PM HF V9 CURRENT SMOKER 1 pack a day [facility] Encounter Notes: All associated encounter notes This section contains the clinical notes associated to the Encounter. Date/Time Encounter Note(s) Provider Source Jan 12, 2025 10:20 AM ADMINISTRATIVE NOT E: LOCAL TITLE: CLERICAL/ADMIN NOTE STANDARD TITLE: ADMINISTRATIVE NOTE DATE OF NOTE: JAN 12, 2025@10:20 ENTRY DATE: JAN 12, 2025@10:20:41 AUTHOR: BRITT ABEL EXP COSIGNER: URGENCY: STATUS: COMPLETED CLERICAL/ADMIN NOTE Has ADDENDA Pt called states that he needs to be seen sooner for Card then available date of 03/18 due to being in ED on 01/07 with chest pains. Request a call back, verified number. Thanks /arleth/ Britt Abel MSA Signed: 01/12/2025 10:23 Receipt Acknowledged By: 01/13/2025 09:37 /arleth/ Shante CONTRERAS RN 2W OPC Pr Intern Nurse Licensed Master Social Worker 01/13/2025 ADDENDUM STATUS: COMPLETED Spoke with and he states that he is feeling better and has had no chest pain since visit. He was seen at [facility]. Will request records for provider to review. /arleth/ Shante CONTRERAS RN 2W OPC Pr Intern Nurse Licensed Master Social Worker Signed: 01/13/2025 09:39 BRITT ABEL [facility]
--- OUTSIDE RECORDS SUMMARY | 2025-01-21 04:26 | XMS_ITS | Encounter Summary ---
Author Name [facility] [place] Organization [facility] [place] Address [address] [place] [address] Care Team Providers Care Emt I/99 Name Role Phone ESTELAMAYLIN Primary Care Provider [...] RISSA SHIRLEY Mar 04, 2012 RISSA RODRIGUEZ [id number] HERON,NORMA [place] PATIENT [facility]NA [facility] (WNR) MEDICARE ADVANTAGE [facility] (WNR) Jul 30, 2017 [id number] HERON,NORMA [place] PATIENT [facility] (WNR) MEDICARE ADVANTAGE [facility](W NR) Jul 30, 2017 [id number] HERON,NORMAJoel GODOYE PATIENT [facility]NA [facility] (WNR) [facility] ORGANIZ MEDIC ARE BRAULIO Connell Jul 30, 2012 [id number] NORMA SHEL[place] PATIENT MEDICARE (WNR) MEDICARE (M) PART A Jul 30, 2017 PART A [id number] NORMA SHEL[place] PATIENT MEDICARE (WNR) MEDICARE (M) PART B Jul 30, 2017 PART B [id number] NORMA SHEL[place] PATIENT MEDICARE PART D (WNR) PRESCRIPT ION PART D Jul 30, 2017 PART D [id number] 50 NORMA SHEL[place] PATIENT MEDICARE PART D (WNR) MEDICARE (M) PART D Jul 30, 2017 PART D [id number] NORMA SHEL[place] PATIENT MEDICARE PART D (WNR) MEDICARE (M) PART D Jul 30, 2017 PART D [id number] NORMA SHELBY PATIENT MEDICARE PART D (WNR) MEDICARE (M) PART D Jul 30, 2012 PART D [id number] NORMA SHELBY PATIENT Selected Encounter This section includes the information on record at [place] for the Encounter. Date/Time Encounter Type Encounter Description Reason Pro vider Source Jan 21, 2025 08:26 AM Outpatient Encounter ADMIN PAT ACTIVTIES (MASNONCT) IHE Encounter Template Text not used by [place] Plan of Treatment: Future Appointments (+ 6 [...] 28, 2025 01:30 PM AMBULATORY - REHAB MEDICMAURICE E [facility] Feb 04, 2025 09:00 AM AMBULATORY - SURGERY [facility]ORY [facility] Mar 16, 2025 11:30 AM AMBULATORY - NONE [facility] Mar 18, 2025 09:30 AM AMBULATORY - MEDICINE T[facility]MY DANIEL[facility] Apr 29, 2025 09:30 AM AMBULATORY - MEDICINE TAMMY DANIEL-[facility] May 06, 2025 08:40 AM AMBULATORY - SURG[facility] Lab Results: +/- 30 days [...] Comment December 24, 2024 09:18 AM [facility] + CREATININE PLASMA Specimen [...] December 23, 2024 04:13 PM Reporting Lab: [address] [address] Performing Lab: [address] [address] CREATININE 1.99 mg/dL H 0.72-1.25 eGFR (CKD-EPI) [...] Encounter. Date/Time Encounter Note(s) Provider Source Jan 07, 2025 08:26 AM NONVA NOTE: LOCAL TITLE: OUTSIDE MEDICAL RECORD-FEE OUTPATIENT STANDARD TITLE: NONVA NOTE DATE OF NOTE: JAN 07, 2025@08:26 ENTRY DATE: JAN 21, 2025@08:26:28 AUTHOR: ROQUE SALAZAR EXP COSIGNER: URGENCY: STATUS: COMPLETED The scanned image may be viewed in [employer]. /arleth/ ROQUE SALAZAR fileclerk Signed: 01/21/2025 08:26 ROQUE SALAZAR [facility]
--- OUTSIDE RECORDS SUMMARY | 2025-01-28 09:30 | XMS_ITS | Encounter Summary ---
Author Name [facility] [place] Address [address] [place] [address] Care Team Providers Care Automotive Service Consultant Name Role Phone ESTELAMAYLIN Primary Care Provider [...] RISSA SHIRLEY Mar 04, 2012 RISSA RODRIGUEZ [id number] HERON,NORMA [place] PATIENT [facility]NA [facility] (WNR) MEDICARE ADVANTAGE [facility](W NR) Jul 30, 2017 [id number] HERON,NORMA [place] PATIENT [facility] (WNR) MEDICARE ADVANTAGE [facility] (WNR) Jul 30, 2017 [id number] HERON,NORMA [place] PATIENT [facility] (WNR) [facility] ORGANIZ MEDIC ARE BRAULIO Connell Jul 30, 2012 [id number] [phone] NORMA SHELBY PATIENT MEDICARE (WNR) MEDICARE (M) PART A Jul 30, 2017 PART A [id number] 50 NORMA SHE[place] PATIENT MEDICARE (WNR) MEDICARE (M) PART B Jul 30, 2017 PART B [id number] [id number] NORMA SHEL[place] PATIENT MEDICARE PART D (WNR) PRESCRIPT ION PART D Jul 30, 2017 PART D [id number] 50 NORMA SHEL[place] PATIENT MEDICARE PART D (WNR) MEDICARE (M) PART D Jul 30, 2017 PART D [id number] 50 NORMA SHEL[place] PATIENT MEDICARE PART D (WNR) MEDICARE (M) PART D Jul 30, 2017 PART D [id number] NORMA SHELBY PATIENT MEDICARE PART D (WNR) MEDICARE (M) PART D Jul 30, 2012 PART D [id number] NORMA SHEL[place] PATIENT Selected Encounter This section includes the information on record at [place] for the Encounter. Date/Time Encounter Type Encounter Description Reason Provider Source Jan 28, 2025 01:30 PM ORTHC/PROSTC MGMT SBSQ ENC PROSTHETICS/ORTHOT ICS ICD-10-CM E11.40 Type 2 diabetes mellitus with diabetic neuropathy, RUFINA Dominguez Abi Encounter Template Text not used by [place] Assessments - Encounter Diagnoses This section includes the primary and secondary diagnoses documented for the Encounter. Date/Time Primary/Secondary Diagnosis Diagnosis Name Provider Source Jan 28, 2025 01:34 PM PRIMARY Type 2 diabetes mellitus with diabetic neuropathy, RUFINA Dominguez [facility] Plan of Treatment: Future Appointments (+ 6 months) and Future Tests (+/- 45 days) The Plan of Treatment section includes future care activities for the patient from all [place] treatmentfacilities. This section includes future appointments and future orders which are active, pending or scheduled. Future Appointments This section includes appointments that were scheduled to occur 6 months from the date of the Encounter, up to a maximum of 20 appointments. The data comes from all [place] treatment facilities. Appointment Date/Time Appointment Type Appointme nt Facility Name Feb 04, 2025 09:00 AM AMBULATORY - SURGERY [facility] Mar 16, 2025 11:30 AM AMBULATORY - NONE IMANI N [facility] Mar 18, 2025 09:30 AM AMBULATORY - MEDICINE TAMMY FR[facility] Apr 29, 2025 09:30 AM AMBULATORY - MEDICINE TAMMY NGTON[facility] May 06, 2025 08:40 AM AMBULATORY - SURGERY [place] [facility] Social History: Smoking Status (Most current) and Tobacco Use (All prior to encounter date) This section includes the most current, and the historical, smoking and tobacco- related health factors from the [place] facility where the Encounter took place. Current Smoking Status This section includes the most current smoking, or tobacco-related health factor, from the [place] facility where the Encounter took place. Date/Time Current Smoking Status Comment Corbin torres Apr 09, 2024 10:30 AM VA-TOBACCO FORMER USER [facility] Tobacco Use History This section includes a history of the smoking, or tobacco-related health factors, that were collected on or before the date of the Encounter. The data comes from the [place] facility where the Encounter took place. Date/Time Smoking Status/Tobacco Use Comment F acility Apr 09, 2024 10:30 AM VA-TOBACCO QUIT 15 YRS OR MORE [facility] May 08, 2023 02:30 PM VA-TOBACCO FORMER USER [facility] May 08, 2023 02:30 PM VA-TOBACCO QUIT 5 TO < 15 YRS [facility] May 26, 2022 11:00 AM VA-TOBACCO FORMER USER [facility] May 26, 2022 11:00 AM VA-TOBACCO QUIT 5 TO < 15 YRS [facility] Jun 22, 2021 10:00 AM VA-TOBACCO FORMER USER [facility] Jun 22, 2021 10:00 AM VA-TOBACCO QUIT 5 TO < 15 YRS [facility] Jul 05, 2020 11:00 AM VA-TOBACCO FORMER USER [facility] Jul 05, 2020 11:00 AM VA-TOBACCO QUIT 5 TO < 15 YRS [facility] Apr 25, 2019 02:40 PM VA-TOBACCO FORMER USER [facility] Apr 25, 2019 02:40 PM VA-TOBACCO QUIT 5 TO < 15 YRS [facility] Jun 27, 2018 09:46 AM VA-TOBACCO FORMER USER [facility] Jun 27, 2018 09:46 AM VA-TOBACCO QUIT 5 TO < 15 YRS [facility] Jul 27, 2017 09:25 AM V9 LIFETIME NON-USER OF TOBACCO [facility] Aug 22, 2016 08:58 AM V9 LIFETIME NON-USER OF TOBACCO [facility] Sep 14, 2015 09:30 AM V9 LIFETIME NON-USER OF TOBACCO [facility] Sep 03, 2014 07:39 AM V9 LIFETIME NON-USER OF TOBACCO [facility] Apr 22, 2013 09:17 AM V9 QUIT TOBACCO IN THE LAST 12 MONTHS [facility] Jun 14, 2012 02:12 PM V9 QUIT TOBACCO >1 2 MO & <7 YRS AGO [facility] Feb 07, 2011 03:23 PM V9 QUIT TOBACCO >7 YEARS AGO [facility] Jan 20, 2010 02:15 PM V9 QUIT TOBACCO >7 YEARS AGO [facility] Encounter Notes: All associated encounter notes This section contains the clinical notes associated to the Encounter. Date/Time Encounter Note(s) Provider Source Jan 28, 2025 01:32 PM ORTHOTICS PROSTHET ICS NOTE: LOCAL TITLE: SHOE EVAL AND FITTING NOTE STANDARD TITLE: ORTHOTICS PROSTHETICS NOTE DATE OF NOTE: JAN 28, 2025@13:32 ENTRY DATE: JAN 28, 2025@13:32:34 AUTHOR: RUFINA MILLER EXP COSIGNER: URGENCY: STATUS: COMPLETED Existing patient(please answer the two questions below) HPI: History provided by patient and [facility] electronic medical record. Shoe Needs: Extra depth Measurement with Ritz stick while standing Length: 11.5 Width: x wide Risk Level: 2 Risk Level 2 At-Risk: Patient HAS demonstrated sensory loss AND Annual intake info Referring Clinic Podiatry Active problems - Computerized Problem List is the source for the followin. Benign hypertensive renal disease 2. Paroxysmal atrial fibrillation 3. Long-term current use of anticoagulant 4. Chronic Kidney Disease Stage 3 (SCT 113508323) 5. Chronic pain 6. Long-term current use of oral hypoglycemic medication 7. Exertional dyspnea 8. Anemia 9. 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 Acquired trigger finger of left index finger 11. Diabetic neuropathy 12. Jay's Esophagus (SCT 955779684) repeat due 01/2021 13. Adenomatous polyp of [...] 20. Lumbar spondylosis with myelopathy (SNOMED CT 47141019) 21. Personal History of Venous Thrombosis and Embolism 22. Obstructive sleep apnea syndrome (SNOMED CT 49409205) 23. Obesity (SNOMED CT 148640739) 24. Mixed hyperlipidemia (SNOMED CT 340820818) 25. Benign hypertensive renal disease Weight: 328.6 lb [149.05 kg] (12/24/2024 08:32) Roy requires special order shoes due to: Size not carried in stock Ordered today: Model: Orthofeet [id number] Size: 11.5 x wide Color: White Closure: Lace Model: Ortho Jay Size: 11.5 x wide Color: Black Closure: Lace Shoe Modifications: None to RTC for shoe fitting 3-5 weeks. Will be notified by [employer] letter. Roy was also advised of the following today: If has not received letter or phone call in 1 month call . If shoes are not picked up within (2) months of letter, they will be returned to stock. /arleth/ RUFINA MILLER EPIC WILLOW SPECIALIST Signed: 01/28/2025 13:34 RUFINA MILLER [facility]
--- OUTSIDE RECORDS SUMMARY | 2025-02-04 05:00 | XMS_ITS | Encounter Summary ---
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 MEDIC ARE CLAUDIOA KASH Connell Jul 30, 2012 [id number] [phone] NORMA SHELBY PATIENT MEDICARE (WNR) MEDICARE (M) PART A Jul 30, 2017 PART A [id number] [phone] NORMA SHELBY PATIENT MEDICARE (WNR) MEDICARE (M) PART B Jul 30, 2017 PART B [id number] NORMA SHELBY PATIENT MEDICARE PART D (WNR) PRESCRIPT ION PART D Jul 30, 2017 PART D [id number] [phone] NORMA SHELBY PATIENT MEDICARE PART D (WNR) MEDICARE (M) PART D Jul 30, 2017 PART D [id number] NORMA SHELBY PATIENT MEDICARE PART D (WNR) MEDICARE (M) PART D Jul 30, 2017 PART D [id number] [phone] NORMA SHELBY PATIENT MEDICARE PART D (WNR) MEDICARE (M) PART D Jul 30, 2012 PART D [id number] NORMA SHELBY PATIENT Selected Encounter This section includes the information on record at [place] for the Encounter. Date/Time Encounter Type Encounter Description Reason Provider Source Feb 04, 2025 09:00 AM OFF/OP EST NOVEMBER X REQ PHY/QHP PODIATRY ICD-10-CM B35.1 Tinea unguium [facility]ST[facility] B IHE Encounter Template Text not used by [place] Assessments - Encounter Diagnoses This section includes the primary and secondary diagnoses documented for the Encounter. Date/Time Primary/Secondary Diagnosis Diagnosis Name Provider Source Feb 04, 2025 08:57 AM PRIMARY [facility]guium [facility] Plan of Treatment: Future Appointments (+ 6 months) and Future Tests (+/- 45 days) The Plan of Treatment section includes future care activities for the patient from all [place] treatmentfacilities. This section includes future appointments and future orders which are active, pending or scheduled. Future Appointments This section includes appointments that were scheduled to occur 6 months from the date of the Encounter, up to a maximum of 20 appointments. The data comes from all [place] treatment facilities. Appointment Date/Time Appointment Type Appointme nt Facility Name Mar 16, 2025 11:30 AM AMBULATORY - NONE [place] [facility] Mar 18, 2025 09:30 AM AMBULATORY - MEDICINE TAMMY FREDY-D [facility] Apr 29, 2025 09:30 AM AMBULATORY - MEDICINE TAMMY NGTON-D [facility] May 06, 2025 08:40 AM AMBULATORY - SURGERY IVORY LEYVA [facility] Social History: Smoking Status (Most current) and Tobacco Use (All prior to encounter date) This section includes the most current, and the historical, smoking and tobacco- related health factors from the [place] facility where the Encounter took place. Current Smoking Status This section includes the most current smoking, or tobacco-related health factor, from the [place] facility where the Encounter took place. Date/Time Current Smoking Status Comment Facil ity Apr 09, 2024 10:30 AM VA-TOBACCO FORMER USER [facility] Tobacco Use History This section includes a history of the smoking, or tobacco-related health factors, that were collected on or before the date of the Encounter. The data comes from the [place] facility where the Encounter took place. Date/Time Smoking Status/Tobacco Use Comment F acility Apr 09, 2024 10:30 AM VA-TOBACCO QUIT 15 YRS OR MORE [facility] May 08, 2023 02:30 PM VA-TOBACCO FORMER USER [facility] May 08, 2023 02:30 PM VA-TOBACCO QUIT 5 TO < 15 YRS [facility] May 26, 2022 11:00 AM VA-TOBACCO FORMER USER [facility] May 26, 2022 11:00 AM VA-TOBACCO QUIT 5 TO < 15 YRS [facility] Jun 22, 2021 10:00 AM VA-TOBACCO FORMER USER [facility] Jun 22, 2021 10:00 AM VA-TOBACCO QUIT 5 TO < 15 YRS [facility] Jul 05, 2020 11:00 AM VA-TOBACCO FORMER USER [facility] Jul 05, 2020 11:00 AM VA-TOBACCO QUIT 5 TO < 15 YRS [facility] Apr 25, 2019 02:40 PM VA-TOBACCO FORMER USER [facility] Apr 25, 2019 02:40 PM VA-TOBACCO QUIT 5 TO < 15 YRS [facility] Jun 27, 2018 09:46 AM VA-TOBACCO FORMER USER [facility] Jun 27, 2018 09:46 AM VA-TOBACCO QUIT 5 TO < 15 YRS [facility] Jul 27, 2017 09:25 AM V9 LIFETIME NON-USER OF TOBACCO [facility] Aug 22, 2016 08:58 AM V9 LIFETIME NON-USER OF TOBACCO [facility] Sep 14, 2015 09:30 AM V9 LIFETIME NON-USER OF TOBACCO [facility] Sep 03, 2014 07:39 AM V9 LIFETIME NON-USER OF TOBACCO [facility] Apr 22, 2013 09:17 AM V9 QUIT TOBACCO IN THE LAST 12 MONTHS [facility] Jun 14, 2012 02:12 PM V9 QUIT TOBACCO >1 2 MO & <7 YRS AGO [facility] Feb 07, 2011 03:23 PM V9 QUIT TOBACCO >7 YEARS AGO [facility] Jan 20, 2010 02:15 PM V9 QUIT TOBACCO >7 YEARS AGO [facility] Encounter Notes: All associated encounter notes This section contains the clinical notes associated to the Encounter. 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 [place]) are NOT included in this list. Non-VA medications documented outside this [place], remote inpatient orders (regardless of status) and remote clinic medications are NOT included in this list. The patient and provider must always discuss medications the patient is taking, regardless of where the medication was dispensed or obtained. OUTPT APIXABAN 5MG TAB (Status = Active) TAKE ONE-HALF TABLET BY MOUTH TWICE A DAY TO THIN BLOOD -[facility] [phone] WITH QUESTIONS OR CONCERNS Rx# [id number] Last Released: 01/14/25 Qty/Days Supply: Rx Expiration Date: 04/11/25 Refills Remainin Indication: TO THIN BLOOD OUTPT ARTIFICIAL TEARS POLYVINYL ALCOHOL (Status = Active) PUT 1 DROP IN BOTH EYES TWICE A DAY FOR DRY EYES Rx# [id number] Last Released: 12/17/24 Qty/Days Supply: Rx Expiration Date: 11/05/25 Refills Remainin Indication: FOR DRY EYES OUTPT ATORVASTATIN CALCIUM 40MG TAB (Status = Active) TAKE ONE-HALF TABLET BY MOUTH DAILY FOR CHOLESTEROL Rx# [id number] Last Released: 12/03/24 Qty/Days Supply: Rx Expiration Date: 05/10/25 Refills Remainin OUTPT CARVEDILOL 25MG TAB (Status = Active) TAKE ONE TABLET BY MOUTH TWICE A DAY FOR HEART/BLOOD PRESSURE Rx# [id number] Last Released: 01/06/25 Qty/Days Supply: 180 Rx Expiration Date: 05/21/25 Refills Remainin Indication: FOR HEART/BLOOD PRESSURE OUTPT CHLORTHALIDONE 25MG TAB (Status = Active/Suspended) TAKE ONE TABLET BY MOUTH DAILY FOR BLOOD PRESSURE Rx# [id number] Last Released: 01/13/25 Qty/Days Supply: Rx Expiration Date: 05/10/25 Refills Remainin Indication: FOR BLOOD PRESSURE OUTPT DOXYCYCLINE HYCLATE 100MG TAB (Status = ) TAKE ONE TABLET BY MOUTH TWICE A DAY Rx# [id number] Last Released: 10/20/24 Qty/Days Supply: 09/02 Rx Expiration Date: 11/19/24 Refills Remainin Indication: FOR SKIN OR EYE CONDITION OUTPT FLUOXETINE HCL 20MG CAP (Status = Discontinued) TAKE ONE CAPSULE BY MOUTH DAILY FOR MOOD Rx# [id number] Last Released: 05/09/24 Qty/Days Supply: Rx Expiration Date: 05/10/25 Refills Remainin OUTPT GABAPENTIN 300MG CAP (Status = Discontinued) TAKE TWO CAPSULES BY MOUTH TWICE A DAY FOR NERVE PAIN Rx# [id number] Last Released: 11/17/24 Qty/Days Supply: 120/30 Rx Expiration Date: 06/12/25 Refills Remainin Indication: FOR NERVE PAIN OUTPT GABAPENTIN 300MG CAP (Status = Active) TAKE TWO CAPSULES BY MOUTH TWICE A DAY FOR NERVE PAIN Rx# [id number] Last Released: 01/20/25 Qty/Days Supply: 120/30 Rx Expiration Date: 12/16/25 Refills Remainin Indication: FOR NERVE PAIN OUTPT [id number] PENTOXIFYLLINE SA 400MG/PBO (Status = Discontinued) TAKE ONE TABLET BY MOUTH TWICE A DAY WITH FOOD. SWALLOW WHOLE-DO NOT CHEW, CRUSH OR CUT Rx# [id number] Last Released: 09/22/24 Qty/Days Supply: 200/90 Rx Expiration Date: 12/21/24 Refills Remainin OUTPT [id number] PENTOXIFYLLINE SA 400MG/PBO (Status = Active) TAKE ONE TABLET BY MOUTH TWICE A DAY WITH FOOD. SWALLOW WHOLE-DO NOT CHEW, CRUSH OR CUT Rx# [id number] Last Released: 12/22/24 Qty/Days Supply: 200/90 Rx Expiration Date: 03/17/25 Refills Remainin OUTPT LISINOPRIL 40MG TAB (Status = Active) TAKE ONE TABLET BY MOUTH DAILY FOR BLOOD PRESSURE/HEART Rx# [id number] Last Released: 11/26/24 Qty/Days Supply: 90/90 Rx Expiration Date: 05/10/25 Refills Remainin OUTPT METFORMIN HCL 500MG TAB (Status = Active) TAKE ONE TABLET BY MOUTH TWICE A DAY FOR DIABETES Rx# [id number] Last Released: 01/06/25 Qty/Days Supply: 180/90 Rx Expiration Date: 05/21/25 Refills Remainin Indication: FOR BLOOD SUGAR OUTPT PANTOPRAZOLE NA 40MG EC TAB (Status = Active) TAKE ONE TABLET BY MOUTH TWICE A DAY 30 MINUTES BEFORE A MEAL FOR STOMACH, 30 MINUTES BEFORE A MEAL. TAKE ON AN EMPTY STOMACH. Rx# [id number] Last Released: 01/23/25 Qty/Days Supply: 180/90 Rx Expiration Date: 05/10/25 Refills Remainin OUTPT SODIUM CHLORIDE 0.9% IRRG SOLN 500ML (Status = Active) IRRIGATE SMALL AMOUNT (500ML BOTTLE) IRRIGATION DIRECTED FOR WOUND CARE Rx# [id number] Last Released: 11/25/24 Qty/Days Supply: 10/26 Rx Expiration Date: 11/20/25 Refills Remainin Indication: FOR WOUND CARE OUTPT SPIRONOLACTONE 25MG TAB (Status = Active) TAKE ONE TABLET BY MOUTH DAILY FOR BLOOD PRESSURE/HEART Rx# [id number] Last Released: 01/21/25 Qty/Days Supply: Rx Expiration Date: 04/29/25 Refills Remainin SUPPLIES OUTPT ACCU-CHEK GUIDE (GLUCOSE) TEST STRIP (Status = Discontinued) USE 1 STRIP TO TEST BLOOD SUGAR DIRECTED LIMIT 50 STRIPS EVERY 90 DAYS Rx# [id number] Last Released: 04/18/24 Qty/Days Supply: Rx Expiration Date: 04/17/25 Refills Remainin OUTPT GAUZE PAD 4IN X 4IN 12-PLY STERILE (Status = Active) USE GAUZE GAUZE PAD 4IN X 4IN 12-PLY STERILE AFFECTED AREA TWICE A DAY FOR WOUND CARE MOISTEN WITH SALINE AND PACK WOUND Rx# [id number] Last Released: 11/27/24 Qty/Days Supply: Rx Expiration Date: 11/20/25 Refills Remainin Indication: FOR WOUND CARE OUTPT LANCET,SOFTCLIX (Status = Discontinued) USE LANCET AFFECTED AREA DIRECTED Rx# [id number] Last Released: 04/18/24 Qty/Days Supply: Rx Expiration Date: 04/17/25 Refills Remainin OUTPT TAPE,MICROPORE 2IN #1530-2 (Status = Active) TAPE TAPE,PAPER 2IN AFFECTED AREA DIRECTED Rx# [id number] Last Released: 11/23/24 Qty/Days Supply: Rx Expiration Date: 11/20/25 Refills RemaininTorri gandhi/ IVY NAVARRETE LPN STAFF TEXTILES AND CLOTHING TEACHER Signed: 02/04/2025 08:57 IVY NAVARRETE [facility]
--- OUTSIDE RECORDS SUMMARY | 2025-03-01 22:48 | XMS_ITS | Continuity of Care Document ---
Author Name [facility] Organization [facility] Care Team Providers Care Technical Instructor Name Role Phone [facility] Unavailable Unavailable Problems Combined list of problems from Department of Defense and Veterans Affairs facilities. It does not include entries that were removed or entered in error. Problem Status Onset Date Problem Type Date of Resolution Comments Source Acquired trigger finger of left index finger Active Condition [place] [facility] Adenomatous polyp of colon Active Condition Feb 11, 2018 Entered By: AAKASH HUANG Comment: many TAs resected January 2018 -- repeat in 1 year (01/2019).Shawna espinosa 2018 Entered By: CHIN LIN Comment: TA/HP polyps resected December 2018 -- repeat in 3 years (12/2021). 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 Condition Feb 11, 2018 Entered By: ARISTEO PALMER RA Comment: repeat due 01/2021 [place] [facility] Benign hypertensive renal disease Active Condition [place] [facility] Bilateral hip joint pain Active Condition [place] [facility] Chronic Kidney Disease Stage 3 (SCT 404244117) Active Condition [place] [facility] 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 Condition [place] [facility] Chronic low back pain Active Condition [place] [facility] Chronic pain Active Condition [place] Dependence on continuous positive airway pressure ventilation Active Condition [place] [facility] Depressive disorder Active Condition [place] [facility] Diabetic neuropathy Active Condition [place] [facility] Exertional dyspnea Active Condition [facility] Long-term current use of anticoagulant Active Condition [place] [facility] Long-term current use of oral hypoglycemic medication Active Condition [place] [facility] Lumbar spondylosis with myelopathy (SNOMED CT 83943290) Active Condition [place] [facility] Mixed hyperlipidemia (SNOMED CT 245406794) Active Condition [facility] Obesity (SNOMED CT 458957857) Active Condition [facility] Obstructive sleep apnea syndrome (SNOMED CT 02739546) Active Condition [facility] Paroxysmal atrial fibrillation Active Condition [facility] Personal History of Venous Thrombosis and Embolism (ICD-9-CM V12.51) Active Condition Jan 25, 2010 Entered By: Neli CUMMINGS Comment: RLE DVT 2001. [facility] Seborrheic dermatitis Active Condition [facility] Constipation (SNOMED CT 37591937) Inactive Condition 09/03/2014 [facility] Degeneration of intervertebral disc (ICD-9-CM 722.6) Inactive Condition 08/22/2016 [facility] Hip pain Inactive Condition 08/22/2016 [facility] Impaired fasting glucose Inactive Condition 07/02/2018 [facility] Knee: arthralgia * (ICD-9-CM 719.46) Inactive Condition 09/03/2014 [facility] Low back pain Inactive Condition 08/22/2016 [facility] Low Back Pain Inactive Condition 09/03/2014 Jan 272005 Entered By: Neli CUMMINGS Comment: DJD/DDD L-SPINE. [facility] Osteoarthrosis involving the knee (ICD-9-CM 715.98) Inactive Condition 08/22/2016 [place] [facility] Other bursitis disorders (ICD-9-CM 727.3) Inactive Condition 09/03/2014 [place] [facility] Pain in right knee Inactive Condition 06/01/2022 [facility] Pseudophakia Inactive Condition 06/01/2022Mar Entered By: SHEKHAR JETER Comment: s/p [place] os 03/31/09December 12, 2011 Entered By: SHEKHAR JETER Comment: s/p [place] od 11/09/11 [facility] Subjective tinnitus (ICD-9-CM 388.31) Inactive Condition 06/01/2022 [facility] Swallowing problem (SNOMED CT 002552488) Inactive Condition 09/03/2014 [facility] Tobacco Use Disorder, Remission (ICD-9-CM 305.1) Inactive Condition 09/03/2014 [facility] Trochanteric bursitis (SNOMED CT 8722526) Inactive Condition 09/03/2014 [facility] Diagnosis: ICD-10-CM B35.1 Tinea unguium Active Diagnosis [facility] Diagnosis: ICD-10-CM E11.40 Type 2 diabetes mellitus with diabetic neuropathy, unsp Active Diagnosis [facility] Diagnosis: ICD-10-CM I48.0 Paroxysmal atrial fibrillation Active Diagnosis [facility] Diagnosis: ICD-10-CM T81.329D Deep Disrupt/dehisc of operation wound, unspecified, subs Active Diagnosis [facility] Diagnosis: ICD-10-CM I12.9 Hypertensive chronic kidney disease w stg 1-4/unsp chr kdny Active Diagnosis [facility] Diagnosis: ICD-10-CM L72.0 Epidermal cyst Active Diagnosis [facility] Diagnosis: ICD-10-CM E11.9 Type 2 diabetes mellitus without complications Active Diagnosis [facility] Diagnosis: ICD-10-CM L02.212 Cutaneous abscess of back [any part, except buttock] Active Diagnosis [facility] Diagnosis: ICD-10-CM N18.30 Chronic kidney disease, stage 3 unspecified Active Diagnosis [facility] Diagnosis: ICD-10-CM E11.21 Type 2 diabetes mellitus with diabetic nephropathy Active Diagnosis [facility] Diagnosis: ICD-10-CM I10 Essential (primary) hypertension Active Diagnosis [facility] Diagnosis: ICD-10-CM Z03.89 Encntr for obs for oth suspected diseases and cond ruled out Active Diagnosis [facility] Diagnosis: ICD-10-CM R06.00 Dyspnea, unspecified Active Diagnosis [facility] Diagnosis: ICD-10-CM E11.22 Type 2 diabetes mellitus w diabetic chronic kidney disease Active Diagnosis [facility] Diagnosis: ICD-10-CM Z71.89 Other specified counseling Active Diagnosis [facility] Diagnosis: ICD-10-CM Z51.81 Encounter for therapeutic drug level monitoring Active [facility] Diagnosis: ICD-10-CM Z78.9 Other specified health status Active Diagnosis [facility] Admit Reason: Diarrhea Active Diagnosis [place] [facility] Diagnosis: ICD-10-CM R19.7 Diarrhea, unspecified Active Diagnosis [place] Diagnosis: ICD-10-CM N18.32 Chronic kidney disease, stage 3b Active Diagnosis [place] [facility] Medications Combined list of outpatient medications from Department of Defense and Veterans Affairs facilities.Medications provided include 1) outpatient medications from the last 15 months, and 2) patient-reported medications. Medication Details Route Status Patient Instructions Prescription Expires Prescription Number Last Dispense Date Ordering Provider Order Date Order Qty Source APIXABAN 5MG TAB TAKE ONE-HALF TABLET BY MOUTH TWICE A DAY TO THIN BLOOD -CALL [facility] WITH QUESTION S OR CONCERNS ORAL ACTIVE 04/11/2025 [id number] Abi MAYERS 2023 90 [place] APIXABAN 5MG TAB TAKE ONE-HALF TABLET BY MOUTH TWICE A DAY TO THIN BLOOD -CALL [facility] WITH QUESTION S OR CONCERNS ORAL DISCONT INUED 11/22/2024 [id number] CAIN APARICIO 2023 60 [place] ATORVASTATI N CA 40MG TAB TAKE ONE-HALF TABLET BY MOUTH DAILY FOR CHOLESTE ROL ORAL ACTIVE 05/10/2025 [id number] JOSR GORDILLO 2023 45 [place] ATORVASTATI N CA 40MG TAB TAKE ONE-HALF TABLET BY MOUTH DAILY FOR CHOLESTE ROL ORAL DISCONT INUED 07/25/2024 [id number] JOSE PALMER 2023 45 [place] ATORVASTATI N CA 40MG TAB TAKE ONE-HALF TABLET BY MOUTH DAILY FOR CHOLESTE ROL ORAL DISCONT INUED 05/10/2025 [id number] 4 JOSR GORDILLO 2023 45 [place] CARVEDILOL 25MG TAB TAKE ONE TABLET BY MOUTH TWICE A DAY FOR HEART/BL OOD PRESSURE ORAL ACTIVE 05/21/2025 [id number] 5 JOSR GORDILLO 2024 180 [place] CARVEDILOL 25MG TAB TAKE ONE TABLET BY MOUTH TWICE A DAY FOR HEART/BL OOD PRESSURE ORAL DISCONT INUED 08/11/2024 [id number] LYNETTE TERRAZAS 2023 180 [place] [facility] CHLORTHALID ONE 25MG TAB TAKE ONE TABLET BY MOUTH DAILY FOR BLOOD PRESSURE ORAL ACTIVE 05/17/2025 [id number] 5 JOSR GORDILLO 2024 90 [place] CHLORTHALID ONE 25MG TAB TAKE ONE TABLET BY MOUTH DAILY FOR BLOOD PRESSURE ORAL DISCONT INUED 05/10/2025 [id number] JOSR GORDILLO 2023 90 [place] CHLORTHALID ONE 25MG TAB TAKE ONE TABLET BY MOUTH DAILY FOR BLOOD PRESSURE ORAL DISCONT INUED 02/13/2024 [id number] JOSE PALMERA R 2023 30 [place] [facility] CHLORTHALID ONE 25MG TAB TAKE ONE TABLET BY MOUTH DAILY FOR BLOOD PRESSURE ORAL DISCONT INUED 04/29/2025 [id number] JOSE PALMERA R 2023 90 [place] CHLORTHALID ONE 25MG TAB TAKE ONE TABLET BY MOUTH DAILY FOR BLOOD PRESSURE ORAL DISCONT INUED 05/21/2024 [id number] JOSE PALMERA R 2023 30 [place] CHLORTHALID ONE 25MG TAB TAKE ONE TABLET BY MOUTH DAILY FOR BLOOD PRESSURE ORAL DISCONT INUED 04/21/2024 [id number] JOSE PALMER NOEL R 2023 60 [place] [facility] DOXYCYCLINE HYCLATE 100MG TAB TAKE ONE TABLET BY MOUTH TWICE A DAY ORAL 11/19/[id number] COLLEEN GARCIA 2024 14 [place] FLUOXETINE HCL 20MG CAP TAKE ONE CAPSULE BY MOUTH DAILY FOR MOOD ORAL ACTIVE 05/10/2025 [id number] GORDILLO JOSR Griggs 2023 90 [place] FLUOXETINE HCL 20MG CAP TAKE ONE CAPSULE BY MOUTH DAILY FOR MOOD ORAL DISCONT INUED 04/22/2025 [id number] 4 JOSE PALMER NOEL R 2023 90 [place] FLUOXETINE HCL 20MG CAP TAKE ONE CAPSULE BY MOUTH DAILY FOR MOOD ORAL DISCONT INUED 05/10/2025 [id number] 4 JOSR GORDILLO M 2023 90 [place] FLUOXETINE HCL 20MG CAP TAKE ONE CAPSULE BY MOUTH DAILY FOR MOOD ORAL DISCONT INUED 05/21/2024 [id number] 4 JOSE PALMER NOEL R 2022 90 [place] [facility] GABAPENTIN 300MG CAP TAKE TWO CAPSULES BY MOUTH TWICE A DAY FOR NERVE PAIN ORAL ACTIVE 12/16/2025 [id number] 5 JOSE PALMER NOEL R 2024 120 [place] [facility] GABAPENTIN 300MG CAP TAKE TWO CAPSULES BY MOUTH TWICE A DAY FOR NERVE PAIN ORAL DISCONT INUED 06/12/2025 [id number] 5 JOSE PALMER NOEL R 2023 120 [place] [facility] GABAPENTIN 300MG CAP TAKE TWO CAPSULES BY MOUTH TWICE A DAY FOR NERVE PAIN ORAL DISCONT INUED 06/14/2024 [id number] 4 LYNETTE TERRAZAS 2023 120 [place] [facility] GABAPENTIN 300MG CAP TAKE TWO CAPSULES BY MOUTH TWICE A DAY FOR NERVE PAIN ORAL DISCONT INUED 05/18/2024 [id number] ART PRATT YOUNG E 2023 120 [place] GABAPENTIN 300MG CAP TAKE TWO CAPSULES BY MOUTH TWICE A DAY FOR NERVE PAIN ORAL DISCONT INUED 10/08/2024 [id number] JOSE PALMER R 2023 120 [place] [facility] INV-CSP#200 8 PENTOXIFYLL INE SA 400MG/PLACE CLARY TAKE ONE TABLET BY MOUTH TWICE A DAY WITH FOOD. SWALLOW WHOLE-DO NOT CHEW, CRUSH OR CUT ORAL ACTIVE 03/17/2025 [id number] ISELA ASH 2024 200 [place] [facility] INV-CSP#200 8 PENTOXIFYLL INE SA 400MG/PLACE CLARY TAKE ONE TABLET BY MOUTH TWICE A DAY WITH FOOD. SWALLOW WHOLE-DO NOT CHEW, CRUSH OR CUT ORAL DISCONT INUED 12/21/2024 [id number] ISELA ASH 2024 200 [place] INV-CSP#200 8 PENTOXIFYLL INE SA 400MG/PLACE CLARY TAKE ONE TABLET BY MOUTH TWICE A DAY WITH FOOD. SWALLOW WHOLE-DO NOT CHEW, CRUSH OR CUT ORAL DISCONT INUED 06/25/2024 [id number] 4 ISELA ASH 2023 200 [place] INV-CSP#200 8 PENTOXIFYLL INE SA 400MG/PLACE CLARY TAKE ONE TABLET BY MOUTH TWICE A DAY WITH FOOD. SWALLOW WHOLE-DO NOT CHEW, CRUSH OR CUT ORAL DISCONT INUED 03/30/2024 [id number] ISELA ASH 2023 200 [place] INV-CSP#200 8 PENTOXIFYLL INE SA 400MG/PLACE CLARY TAKE ONE TABLET BY MOUTH TWICE A DAY WITH FOOD. SWALLOW WHOLE-DO NOT CHEW, CRUSH OR CUT ORAL 09/21/2024 [id number] 4 ISELA ASH 2023 200 [place] LISINOPRIL 40MG TAB TAKE ONE TABLET BY MOUTH DAILY FOR BLOOD PRESSURE /HEART ORAL ACTIVE 05/10/2025 [id number] JOSR GORDILLO 2023 90 [place] LISINOPRIL 40MG TAB TAKE ONE TABLET BY MOUTH DAILY FOR BLOOD PRESSURE /HEART ORAL DISCONT INUED 05/21/2024 [id number] 4 JOSE PALMERA R 2022 90 [place] [facility] METFORMIN HCL 500MG TAB TAKE ONE TABLET BY MOUTH TWICE A DAY FOR DIABETES ORAL ACTIVE 05/21/2025 [id number] 5 JOSR GORDILLO 2023 180 [place] METFORMIN HCL 500MG TAB TAKE ONE TABLET BY MOUTH TWICE A DAY FOR DIABETES ORAL DISCONT INUED 08/07/2024 [id number] JOSR GORDILLO 2023 180 [place] METFORMIN HCL 500MG TAB TAKE ONE TABLET BY MOUTH TWICE A DAY FOR DIABETES ORAL DISCONT INUED 05/04/2024 [id number] 4 JOSE PALMERA R 2023 60 [place] METFORMIN HCL 500MG TAB TAKE ONE TABLET BY MOUTH TWICE A DAY FOR DIABETES ORAL DISCONT INUED 08/07/2024 [id number] JOSR GORDILLO 2023 180 [place] METFORMIN HCL 500MG TAB TAKE ONE TABLET BY MOUTH TWICE A DAY FOR DIABETES ORAL DISCONT INUED 05/21/2024 [id number] JOSE PALMERA R 2022 180 [place] [facility] METOPROLOL TARTRATE 50MG TAB TAKE ONE-HALF TABLET BY MOUTH TWICE A DAY FOR RAPID HEARTBEA T ORAL DISCONT INUED BY PROVIDE R 05/10/2025 [id number] JOSR GORDILLO 2023 90 [place] METOPROLOL TARTRATE 50MG TAB TAKE ONE-HALF TABLET BY MOUTH TWICE A DAY FOR RAPID HEARTBEA T ORAL DISCONT INUED 06/30/2024 [id number] JOSE PALMER NOEL R 2023 90 [place] METOPROLOL TARTRATE 50MG TAB TAKE ONE-HALF TABLET BY MOUTH TWICE A DAY FOR RAPID HEARTBEA T ORAL DISCONT INUED 05/10/2025 [id number] GORDILLO JOSR Griggs 2023 90 [place] METOPROLOL TARTRATE 50MG TAB TAKE ONE-HALF TABLET BY MOUTH TWICE A DAY FOR RAPID HEARTBEA T ORAL DISCONT INUED 05/21/2024 [id number] JOSE PALMER NOEL R 2022 90 [place] [facility] PANTOPRAZOL E NA 40MG TAB,EC TAKE ONE TABLET BY MOUTH TWICE A DAY 30 MINUTES BEFORE A MEAL FOR STOMACH, 30 MINUTES BEFORE A MEAL. TAKE ON AN EMPTY STOMACH. ORAL ACTIVE 05/10/2025 [id number] DUY JOSR Griggs 2023 180 [place] PANTOPRAZOL E NA 40MG TAB,EC TAKE ONE TABLET BY MOUTH TWICE A DAY 30 MINUTES BEFORE A MEAL FOR STOMACH, 30 MINUTES BEFORE A MEAL. TAKE ON AN EMPTY STOMACH. ORAL DISCONT INUED 07/17/2024 [id number] ART PRATT E 2023 180 [place] PANTOPRAZOL E NA 40MG TAB,EC TAKE ONE TABLET BY MOUTH TWICE A DAY 30 MINUTES BEFORE A MEAL FOR STOMACH, 30 MINUTES BEFORE A MEAL. TAKE ON AN EMPTY STOMACH. ORAL DISCONT INUED 05/10/2025 [id number] 4 [place] JOSR Griggs 2023 180 [place] PANTOPRAZOL E NA 40MG TAB,EC TAKE ONE TABLET BY MOUTH TWICE A DAY 30 MINUTES BEFORE A MEAL FOR STOMACH, 30 MINUTES BEFORE A MEAL. TAKE ON AN EMPTY STOMACH. ORAL DISCONT INUED 05/21/2024 [id number] ESTELAJOSE NOEL R 2022 180 [place] [facility] POLYVINYL ALCOHOL 1.4% SOLN,OPH PUT 1 DROP IN BOTH EYES TWICE A DAY FOR DRY EYES OPHTHA LMIC ACTIVE 11/05/2025 [id number] CANDIDA LOUISE 2024 15 [place] [facility] SODIUM CHLORIDE 0.9% SOLN,IRRG,5 00ML IRRIGATE SMALL AMOUNT (500ML BOTTLE) IRRIGATI ON DIRECTED FOR WOUND CARE IRRIGA TION ACTIVE 11/20/2025 [id number] ZACHARIAH NATH 2024 3 [place] [facility] SPIRONOLACT ONE 25MG TAB TAKE ONE TABLET BY MOUTH DAILY FOR BLOOD PRESSURE /HEART ORAL ACTIVE 04/29/2025 [id number] 5 [facility] 90 [place] SPIRONOLACT ONE 25MG TAB TAKE ONE TABLET BY MOUTH DAILY FOR BLOOD PRESSURE /HEART ORAL DISCONT INUED 05/21/2024 [id number] JOSE PALMER NDRA R 2022 90 [place] [facility] Immunizations Combined list of available immunizations from the Department of Defense and Veterans Affairs facilities. Immunization Series Date Given Administered By Site Reaction Lot Number CVX Code Drug Monogram Maker Status Comments Source INFLUENZA, HIGH-DOSE, TRIVALENT, PF 2023 YURY ZAFAR LEFT DELTO ID [id number] 135 complet ed Completed Series, ADMINISTE [place] AT [place], [place] [facility] COVID-19 (WyzeTalk), MRNA, LNP-S, PF, SACHI-SUCROSE, 30 MCG/0.3 ML (AGES 12+ YEARS) 1 2022 YURY ZAFAR RIGHT DELTO ID [id number] 309 complet ed ADMINISTE [place] AT [place], [place] [facility] INFLUENZA, HIGH-DOSE, QUADRIVALENT 2022 YURY ZAFAR LEFT [place] ID [id number] A 197 complet ed Completed Series, ADMINISTE [place] AT [place], [place] [facility] COVID-19 (WyzeTalk), MRNA, LNP-S, BIVALENT BOOSTER, PF, 30 MCG/0.3 ML DOSE 4 2021 TANIKA BARCLAY RIGHT DELTO ID [id number] 300 complet ed ADMINISTE RED AT DC, [place] INFLUENZA, HIGH-DOSE, QUADRIVALENT 2 2021 197 complet ed HISTORICA L INFORMATI ON - FROM OTHER REGISTRY, [place] [facility] ZOSTER RECOMBINANT 2 2021 NONE 187 complet ed [place] [facility] ZOSTER RECOMBINANT 1 2020 NONE 187 complet ed [place] [facility] COVID-19 (PFIZER), MRNA, LNP-S, PF, 30 MCG/0.3 ML DOSE 1 2020 208 complet ed HISTORICA L INFORMATI ON - FROM OTHER REGISTRY, [place] [facility] INFLUENZA VACCINE, QUADRIVALENT, ADJUVANTED 1 2020 205 complet ed HISTORICA L INFORMATI ON - FROM OTHER REGISTRY, [place] [facility] INFLUENZA, UNSPECIFIED FORMULATION 2020 88 complet ed [facility] COVID-19 (PFIZER), MRNA, LNP-S, PF, 30 MCG/0.3 ML DOSE 2 2020 208 complet ed PFR; [id number]; 1 [place] COVID-19 (PFIZER), MRNA, LNP-S, PF, 30 MCG/0.3 ML DOSE 1 2020 208 complet ed PFR; [id number]; 1 [place] INFLUENZA, INJECTABLE, QUADRIVALENT, PRESERVATIVE FREE 2019 150 complet ed [place] [facility] INFLUENZA, INJECTABLE, QUADRIVALENT, PRESERVATIVE FREE 2018 150 complet ed [place] [facility] HEP A, ADULT 2018 52 complet ed [place] [facility] HEP A, ADULT 2017 52 complet ed [place] [facility] INFLUENZA, SEASONAL, INJECTABLE 2017 141 complet ed [place] [facility] PNEUMOCOCCAL POLYSACCHARID E [id number] 2016 33 complet ed [place] [facility] [place] INFLUENZA A & B (HISTORICAL) 2016 88 complet ed [place] [facility] [place] INFLUENZA A & B (HISTORICAL) 2015 88 complet ed [place] [id number] (HISTORICAL) 2015 133 complet ed [place] [facility] INFLUENZA A & B (HISTORICAL) 2014 88 complet ed [place] FLU,3 YRS (HISTORICAL) 2013 88 complet ed [place] DTP 2013 01 complet ed [place] [facility] [place] TDAP 2013 115 complet ed [place] [facility] [place] FLU,3 YRS (HISTORICAL) 2012 88 complet ed [place] [facility] FLU,3 YRS (HISTORICAL) 2011 88 complet ed [place] [facility] FLU,3 YRS (HISTORICAL) 2010 88 complet ed [place] [facility] FLU,3 YRS (HISTORICAL) 2009 88 complet ed [place] [facility] FLU,3 YRS (HISTORICAL) 2008 88 complet ed [place] INFLUENZA A & B (HISTORICAL) 2007 88 complet ed [place] PNEUMOCOCCAL, UNSPECIFIED FORMULATION 2007 109 complet ed [place] TD(ADULT) UNSPECIFIED FORMULATION 2003 NONE 139 complet ed Completed Series, [id number] exp [id number] [place] INFLUENZA, UNSPECIFIED FORMULATION 1999 88 complet ed no reaction [place] [facility] TD(ADULT) UNSPECIFIED FORMULATION 1987 139 complet ed [place] [facility] Results Combined list of recent chemistry, hematology and other laboratory results from Department of Defense and Veterans Affairs, ranging from 15 months to all on record, depending upon the facility. Order Name Results Value Reference Range Date Interpretation Specimen Comments Source eGFR + CREATINI NE CREATININE [MASS/VOLU ME] IN SERUM OR PLASMA 1.99 mg/dL 0.72 - 1.25 12/24 H Specimen Type: PLASMA Comment: Estimated Glomerular Filtration Rate (eGFR) calculated using the 2020 Chronic Kidney Disease-Epi demiology (CKD-EPI) Collaborati on creatinine equation; units of measure are mL/min/1.73 m2. Results are only valid for adults (>=18 years) whose serum creatinine is in a steady state. eGFR calculation s are not valid for patients with acute kidney injury and for patients on dialysis. Creatinine- based estimates of kidney function may also be inaccurate in patients with reduced creatinine generation due to decreased muscle mass (e.g., malnutritio n, severe hypoalbumin emia, sarcopenia, chronic neuromuscul ar disease, amputations , severe heart failure or liver disease) and in patients with increased creatinine generation due to increased muscle mass (e.g., muscle builders, anabolic steroids) or increased dietary intake. As drug clearance is proportiona l to total GFR and not GFR indexed to body surface area (BSA), in individuals with a BSA substantial ly different than 1.73 m2, drug dosing should be based on the reported eGFR value de-indexed from BSA by multiplying by the individual' s BSA and dividing by 1.73. CKD is diagnosed based on abnormaliti es of kidney structure or function, present for >3 months, with implication s for health and disease. CKD is classified and staged based on cause, eGFR and albuminuria (quantified as urine albumin to creatinine ratio). An eGFR >60 mL/min/1.73 m2 in the absence of increased urine albumin excretion or structural abnormaliti es does not represent CKD. eGFR CKD Interpretat ion (mL/min/1.7 3 m2) stage >=90 G1 Normal 60-89 G2 Mild decrease 45-59 G3A Mild to moderate decrease 30-44 G3B Moderate to severe decrease 15-29 G4 Severe decrease <15 G5 Kidney failure Ordering Provider: PEARL Report Released Date/Time: December 23, 2024 04:13 PM Reporting Lab: [facility] [address] [facility] [id number] Performing Lab: [facility] [address] [facility] [id number] [place] [facility] eGFR + CREATINI NE GLOMERULAR FILTRATION RATE/1.73 SQ M.PREDICTE D [VOLUME RATE/AREA] IN SERUM, PLASMA OR BLOOD BY CREATININE -BASED FORMULA (CKD-EPI 2020) 33 12/24 Specimen Type: PLASMA Comment: Estimated Glomerular Filtration Rate (eGFR) calculated using the 2020 Chronic Kidney Disease-Epi demiology (CKD-EPI) Collaborati on creatinine equation; units of measure are mL/min/1.73 m2. Results are only valid for adults (>=18 years) whose serum creatinine is in a steady state. eGFR calculation s are not valid for patients with acute kidney injury and for patients on dialysis. Creatinine- based estimates of kidney function may also be inaccurate in patients with reduced creatinine generation due to decreased muscle mass (e.g., malnutritio n, severe hypoalbumin emia, sarcopenia, chronic neuromuscul ar disease, amputations , severe heart failure or liver disease) and in patients with increased creatinine generation due to increased muscle mass (e.g., muscle builders, anabolic steroids) or increased dietary intake. As drug clearance is proportiona l to total GFR and not GFR indexed to body surface area (BSA), in individuals with a BSA substantial ly different than 1.73 m2, drug dosing should be based on the reported eGFR value de-indexed from BSA by multiplying by the individual' s BSA and dividing by 1.73. CKD is diagnosed based on abnormaliti es of kidney structure or function, present for >3 months, with implication s for health and disease. CKD is classified and staged based on cause, eGFR and albuminuria (quantified as urine albumin to creatinine ratio). An eGFR >60 mL/min/1.73 m2 in the absence of increased urine albumin excretion or structural abnormaliti es does not represent CKD. eGFR CKD Interpretat ion (mL/min/1.7 3 m2) stage >=90 G1 Normal 60-89 G2 Mild decrease 45-59 G3A Mild to moderate decrease 30-44 G3B Moderate to severe decrease 15-29 G4 Severe decrease <15 G5 Kidney failure Ordering Provider: PEARL Report Released Date/Time: December 23, 2024 04:13 PM Reporting Lab: [address] [phone] Performing Lab: [address] [phone] [place] [address] CREATINI NE CREATININE [MASS/VOLU ME] IN URINE 108.2 mg/dL 09/16 Specimen Type: URINE No comment entered. Ordering Provider: ME GERARD GORDILLO Report Released Date/Time: Aug 11, 2024 07:11 PM Reporting Lab: [address] [address] Performing Lab: [place] [phone] [place] [address] TOTAL PROTEIN PROTEIN [MASS/VOLU ME] IN URINE 14 mg/dL 0 - 14 09/16 Specimen Type: URINE No comment entered. Ordering Provider: ME GERARD GORDILLO Report Released Date/Time: Aug 11, 2024 07:11 PM Reporting Lab: [address] [phone] Performing Lab: [phone] [place] [address] URINALYS IS COLOR OF URINE Light Yellow 09/16 Specimen Type: URINE Comment: Microscopic not indicated Ordering Provider: ME GERARD GORDILLO Report Released Date/Time: Aug 11, 2024 07:11 PM Reporting Lab: [address] [phone] Performing Lab: [address] [phone] [place] [address] URINALYS IS APPEARANCE OF URINE Clear 09/16 Specimen Type: URINE Comment: Microscopic not indicated Ordering Provider: ME GERARD GORDILLO Report Released Date/Time: Aug 11, 2024 07:11 PM Reporting Lab: [address] [address] Performing Lab: [address] [address] [facility] URINALYS IS UROBILINOG EN [MASS/VOLU ME] IN URINE BY TEST STRIP Normalmg /dL 09/16 Specimen Type: URINE Comment: Microscopic not indicated Ordering Provider: ME GERARD GORDILLO Report Released Date/Time: Aug 11, 2024 07:11 PM Reporting Lab: [address] [phone] Performing Lab: [address] [address] [facility] URINALYS IS HEMOGLOBIN [PRESENCE] IN URINE BY TEST STRIP Negative 09/16 Specimen Type: URINE Comment: Microscopic not indicated Ordering Provider: ME GERARD GORDILLO Report Released Date/Time: Aug 11, 2024 07:11 PM Reporting Lab: [address] [address] Performing Lab: [place] [phone] [place] [address] URINALYS IS BILIRUBIN. TOTAL [PRESENCE] IN URINE BY TEST STRIP Negative 09/16 Specimen Type: URINE Comment: Microscopic not indicated Ordering Provider: ME GERARD GORDILLO Report Released Date/Time: Aug 11, 2024 07:11 PM Reporting Lab: [address] [phone] Performing Lab: [address] [address] [facility] URINALYS IS KETONES [MASS/VOLU ME] IN URINE BY TEST STRIP Negative mg/dL 09/16 Specimen Type: URINE Comment: Microscopic not indicated Ordering Provider: ME GERARD GORDILLO Report Released Date/Time: Aug 11, 2024 07:11 PM Reporting Lab: [address] [address] Performing Lab: [address] [address] [facility] URINALYS IS PROTEIN [MASS/VOLU ME] IN URINE BY TEST STRIP Negative mg/dL 09/16 Specimen Type: URINE Comment: Microscopic not indicated Ordering Provider: ME GERARD GORDILLO Report Released Date/Time: Aug 11, 2024 07:11 PM Reporting Lab: [address] [address] Performing Lab: [address] [address] [facility] URINALYS IS PH OF URINE BY TEST STRIP 5.0 4.5 - 8.0 09/16 Specimen Type: URINE Comment: Microscopic not indicated Ordering Provider: ME GERARD GORDILLO Report Released Date/Time: Aug 11, 2024 07:11 PM Reporting Lab: [address] [address] Performing Lab: [address] [address] [facility] URINALYS IS NITRITE [PRESENCE] IN URINE BY TEST STRIP Negative 09/16 Specimen Type: URINE Comment: Microscopic not indicated Ordering Provider: ME GERARD GORDILLO Report Released Date/Time: Aug 11, 2024 07:11 PM Reporting Lab: [address] [address] Performing Lab: [address] [phone] [facility] URINALYS IS LEUKOCYTE ESTERASE [PRESENCE] IN URINE BY TEST STRIP Negative 09/16 Specimen Type: URINE Comment: Microscopic not indicated Ordering Provider: ME GERARD GORDILOL Report Released Date/Time: Aug 11, 2024 07:11 PM Reporting Lab: [address] [phone] Performing Lab: [address] [address] [facility] URINALYS IS SPECIFIC GRAVITY OF URINE 1.016 1.005 - 1.030 09/16 Specimen Type: URINE Comment: Microscopic not indicated Ordering Provider: ME GERARD GORDILLO Report Released Date/Time: Aug 11, 2024 07:11 PM Reporting Lab: [address] [address] Performing Lab: [address] [address] [facility] URINALYS IS GLUCOSE [MASS/VOLU ME] IN URINE BY TEST STRIP Negative mg/dL 09/16 Specimen Type: URINE Comment: Microscopic not indicated Ordering Provider: ME GERARD GORDILLO Report Released Date/Time: Aug 11, 2024 07:11 PM Reporting Lab: [place] [phone] Performing Lab: [place] [phone] CBC/PLT LEUKOCYTES [#/VOLUME] IN BLOOD BY AUTOMATED COUNT 13.3 10*3/uL 5.0 - 10.0 09/16 H Specimen Type: BLOOD No comment entered. Ordering Provider: ME GERARD GORDILLO Report Released Date/Time: Aug 11, 2024 07:11 PM Reporting Lab: [place] [phone] Performing Lab: [place] [phone] CBC/PLT ERYTHROCYT ES [#/VOLUME] IN BLOOD BY AUTOMATED COUNT 4.58 10*6/uL 4.6 - 6.2 09/16 L Specimen Type: BLOOD No comment entered. Ordering Provider: ME GERARD GORDILLO Report Released Date/Time: Aug 11, 2024 07:11 PM Reporting Lab: [place] [phone] Performing Lab: [place] [phone] CBC/PLT HEMOGLOBIN [MASS/VOLU ME] IN BLOOD 13.1 g/dL 14.0 - 18.0 09/16 L Specimen Type: BLOOD No comment entered. Ordering Provider: ME GERARD GORDILLO Report Released Date/Time: Aug 11, 2024 07:11 PM Reporting Lab: [address] [phone] Performing Lab: [place] [phone] [place] [address] CBC/PLT HEMATOCRIT [VOLUME FRACTION] OF BLOOD BY AUTOMATED COUNT 41.8 42.0 - 52.0 09/16 L Specimen Type: BLOOD No comment entered. Ordering Provider: ME GERARD GORDILLO Report Released Date/Time: Aug 11, 2024 07:11 PM Reporting Lab: [address] [address] Performing Lab: [address] [phone] [facility] CBC/PLT MCV [ENTITIC VOLUME] BY AUTOMATED COUNT 91.3 fL 80.0 - 94.0 09/16 Specimen Type: BLOOD No comment entered. Ordering Provider: ME GERARD GORDILLO Report Released Date/Time: Aug 11, 2024 07:11 PM Reporting Lab: [address] [phone] Performing Lab: [address] [facility] CBC/PLT MCH [ENTITIC MASS] BY AUTOMATED COUNT 28.6 pg 27.0 - 31.0 09/16 Specimen Type: BLOOD No comment entered. Ordering Provider: ME GERARD GORDILLO Report Released Date/Time: Aug 11, 2024 07:11 PM Reporting Lab: [address] Performing Lab: [address] [facility] CBC/PLT MCHC [MASS/VOLU ME] BY AUTOMATED COUNT 31.3 g/dL 32.0 - 36.0 09/16 L Specimen Type: BLOOD No comment entered. Ordering Provider: ME GERARD GORDILLO Report Released Date/Time: Aug 11, 2024 07:11 PM Reporting Lab: [address] Performing Lab: [address] [address] [facility] CBC/PLT PLATELETS [#/VOLUME] IN BLOOD 233 10*3/uL 150 - 450 09/16 Specimen Type: BLOOD No comment entered. Ordering Provider: ME GERARD GORDILLO Report Released Date/Time: Aug 11, 2024 07:11 PM Reporting Lab: [address] [address] Performing Lab: [address] [phone] [facility] CBC/PLT PLATELET MEAN VOLUME [ENTITIC VOLUME] IN BLOOD 10.1 fL 9.0 - 13.1 09/16 Specimen Type: BLOOD No comment entered. Ordering Provider: ME GERARD GORDILLO Report Released Date/Time: Aug 11, 2024 07:11 PM Reporting Lab: [place] [phone] Performing Lab: [address] CBC/PLT ERYTHROCYT E DISTRIBUTI ON WIDTH [ENTITIC VOLUME] BY AUTOMATED COUNT 13.4 11.0 - 16.0 09/16 Specimen Type: BLOOD No comment entered. Ordering Provider: ME GERARD GORDILLO Report Released Date/Time: Aug 11, 2024 07:11 PM Reporting Lab: [place] [phone] Performing Lab: [address] CBC/PLT NUCLEATED ERYTHROCYT ES/100 ERYTHROCYT ES IN BLOOD 0.0 0.0 - 0.0 09/16 Specimen Type: BLOOD No comment entered. Ordering Provider: ME GERARD GORDILLO Report Released Date/Time: Aug 11, 2024 07:11 PM Reporting Lab: [place] [phone] Performing Lab: [place] [phone] PANEL 4 CREATININE [MASS/VOLU ME] IN SERUM OR PLASMA 2.27 mg/dL 0.72 - 1.25 09/16 H Specimen Type: PLASMA Comment: Estimated Glomerular Filtration Rate (eGFR) calculated using the 2020 Chronic Kidney Disease-Epi demiology (CKD-EPI) Collaborati on creatinine equation; units of measure are mL/min/1.73 m2. Results are only valid for adults (>=18 years) whose serum creatinine is in a steady state. eGFR calculation s are not valid for patients with acute kidney injury and for patients on dialysis. Creatinine- based estimates of kidney function may also be inaccurate in patients with reduced creatinine generation due to decreased muscle mass (e.g., malnutritio n, severe hypoalbumin emia, sarcopenia, chronic neuromuscul ar disease, amputations , severe heart failure or liver disease) and in patients with increased creatinine generation due to increased muscle mass (e.g., muscle builders, anabolic steroids) or increased dietary intake. As drug clearance is proportiona l to total GFR and not GFR indexed to body surface area (BSA), in individuals with a BSA substantial ly different than 1.73 m2, drug dosing should be based on the reported eGFR value de-indexed from BSA by multiplying by the individual' s BSA and dividing by 1.73. CKD is diagnosed based on abnormaliti es of kidney structure or function, present for >3 months, with implication s for health and disease. CKD is classified and staged based on cause, eGFR and albuminuria (quantified as urine albumin to creatinine ratio). An eGFR >60 mL/min/1.73 m2 in the absence of increased urine albumin excretion or structural abnormaliti es does not represent CKD. eGFR CKD Interpretat ion (mL/min/1.7 3 m2) stage >=90 G1 Normal 60-89 G2 Mild decrease 45-59 G3A Mild to moderate decrease 30-44 G3B Moderate to severe decrease 15-29 G4 Severe decrease <15 G5 Kidney failure Ordering Provider: ME GERARD GORDILLO Report Released Date/Time: Aug 11, 2024 07:11 PM Reporting Lab: [place] [address] [phone] Performing Lab: [place] [address] [phone] [facility] PANEL 4 UREA NITROGEN [MASS/VOLU ME] IN SERUM OR PLASMA 42 mg/dL 9 - 09/16 H Specimen Type: PLASMA Comment: Estimated Glomerular Filtration Rate (eGFR) calculated using the 2020 Chronic Kidney Disease-Epi demiology (CKD-EPI) Collaborati on creatinine equation; units of measure are mL/min/1.73 m2. Results are only valid for adults (>=18 years) whose serum creatinine is in a steady state. eGFR calculation s are not valid for patients with acute kidney injury and for patients on dialysis. Creatinine- based estimates of kidney function may also be inaccurate in patients with reduced creatinine generation due to decreased muscle mass (e.g., malnutritio n, severe hypoalbumin emia, sarcopenia, chronic neuromuscul ar disease, amputations , severe heart failure or liver disease) and in patients with increased creatinine generation due to increased muscle mass (e.g., muscle builders, anabolic steroids) or increased dietary intake. As drug clearance is proportiona l to total GFR and not GFR indexed to body surface area (BSA), in individuals with a BSA substantial ly different than 1.73 m2, drug dosing should be based on the reported eGFR value de-indexed from BSA by multiplying by the individual' s BSA and dividing by 1.73. CKD is diagnosed based on abnormaliti es of kidney structure or function, present for >3 months, with implication s for health and disease. CKD is classified and staged based on cause, eGFR and albuminuria (quantified as urine albumin to creatinine ratio). An eGFR >60 mL/min/1.73 m2 in the absence of increased urine albumin excretion or structural abnormaliti es does not represent CKD. eGFR CKD Interpretat ion (mL/min/1.7 3 m2) stage >=90 G1 Normal 60-89 G2 Mild decrease 45-59 G3A Mild to moderate decrease 30-44 G3B Moderate to severe decrease 15-29 G4 Severe decrease <15 G5 Kidney failure Ordering Provider: ME GERARD GORDILLO Report Released Date/Time: Aug 11, 2024 07:11 PM Reporting Lab: [place] [address] [phone] Performing Lab: [place] [address] [address] [facility] PANEL 4 GLUCOSE [MASS/VOLU ME] IN SERUM OR PLASMA 142 mg/dL 74 - 100 09/16 H Specimen Type: PLASMA Comment: Estimated Glomerular Filtration Rate (eGFR) calculated using the 2020 Chronic Kidney Disease-Epi demiology (CKD-EPI) Collaborati on creatinine equation; units of measure are mL/min/1.73 m2. Results are only valid for adults (>=18 years) whose serum creatinine is in a steady state. eGFR calculation s are not valid for patients with acute kidney injury and for patients on dialysis. Creatinine- based estimates of kidney function may also be inaccurate in patients with reduced creatinine generation due to decreased muscle mass (e.g., malnutritio n, severe hypoalbumin emia, sarcopenia, chronic neuromuscul ar disease, amputations , severe heart failure or liver disease) and in patients with increased creatinine generation due to increased muscle mass (e.g., muscle builders, anabolic steroids) or increased dietary intake. As drug clearance is proportiona l to total GFR and not GFR indexed to body surface area (BSA), in individuals with a BSA substantial ly different than 1.73 m2, drug dosing should be based on the reported eGFR value de-indexed from BSA by multiplying by the individual' s BSA and dividing by 1.73. CKD is diagnosed based on abnormaliti es of kidney structure or function, present for >3 months, with implication s for health and disease. CKD is classified and staged based on cause, eGFR and albuminuria (quantified as urine albumin to creatinine ratio). An eGFR >60 mL/min/1.73 m2 in the absence of increased urine albumin excretion or structural abnormaliti es does not represent CKD. eGFR CKD Interpretat ion (mL/min/1.7 3 m2) stage >=90 G1 Normal 60-89 G2 Mild decrease 45-59 G3A Mild to moderate decrease 30-44 G3B Moderate to severe decrease 15-29 G4 Severe decrease <15 G5 Kidney failure Ordering Provider: ME GERARD GORDILLO Report Released Date/Time: Aug 11, 2024 07:11 PM Reporting Lab: [place] [address] [phone] Performing Lab: [place] [address] [phone] [facility] PANEL 4 SODIUM [MOLES/VOL UME] IN SERUM OR PLASMA 145 mmol/L 136 - 145 09/16 Specimen Type: PLASMA Comment: Estimated Glomerular Filtration Rate (eGFR) calculated using the 2020 Chronic Kidney Disease-Epi demiology (CKD-EPI) Collaborati on creatinine equation; units of measure are mL/min/1.73 m2. Results are only valid for adults (>=18 years) whose serum creatinine is in a steady state. eGFR calculation s are not valid for patients with acute kidney injury and for patients on dialysis. Creatinine- based estimates of kidney function may also be inaccurate in patients with reduced creatinine generation due to decreased muscle mass (e.g., malnutritio n, severe hypoalbumin emia, sarcopenia, chronic neuromuscul ar disease, amputations , severe heart failure or liver disease) and in patients with increased creatinine generation due to increased muscle mass (e.g., muscle builders, anabolic steroids) or increased dietary intake. As drug clearance is proportiona l to total GFR and not GFR indexed to body surface area (BSA), in individuals with a BSA substantial ly different than 1.73 m2, drug dosing should be based on the reported eGFR value de-indexed from BSA by multiplying by the individual' s BSA and dividing by 1.73. CKD is diagnosed based on abnormaliti es of kidney structure or function, present for >3 months, with implication s for health and disease. CKD is classified and staged based on cause, eGFR and albuminuria (quantified as urine albumin to creatinine ratio). An eGFR >60 mL/min/1.73 m2 in the absence of increased urine albumin excretion or structural abnormaliti es does not represent CKD. eGFR CKD Interpretat ion (mL/min/1.7 3 m2) stage >=90 G1 Normal 60-89 G2 Mild decrease 45-59 G3A Mild to moderate decrease 30-44 G3B Moderate to severe decrease 15-29 G4 Severe decrease <15 G5 Kidney failure Ordering Provider: ME GERARD GORDILLO Report Released Date/Time: Aug 11, 2024 07:11 PM Reporting Lab: [place] [address] [phone] Performing Lab: [place] [place] [address] [phone] [facility] PANEL 4 POTASSIUM [MOLES/VOL UME] IN SERUM OR PLASMA 5.0 mmol/L 3.5 - 5.1 09/16 Specimen Type: PLASMA Comment: Estimated Glomerular Filtration Rate (eGFR) calculated using the 2020 Chronic Kidney Disease-Epi demiology (CKD-EPI) Collaborati on creatinine equation; units of measure are mL/min/1.73 m2. Results are only valid for adults (>=18 years) whose serum creatinine is in a steady state. eGFR calculation s are not valid for patients with acute kidney injury and for patients on dialysis. Creatinine- based estimates of kidney function may also be inaccurate in patients with reduced creatinine generation due to decreased muscle mass (e.g., malnutritio n, severe hypoalbumin emia, sarcopenia, chronic neuromuscul ar disease, amputations , severe heart failure or liver disease) and in patients with increased creatinine generation due to increased muscle mass (e.g., muscle builders, anabolic steroids) or increased dietary intake. As drug clearance is proportiona l to total GFR and not GFR indexed to body surface area (BSA), in individuals with a BSA substantial ly different than 1.73 m2, drug dosing should be based on the reported eGFR value de-indexed from BSA by multiplying by the individual' s BSA and dividing by 1.73. CKD is diagnosed based on abnormaliti es of kidney structure or function, present for >3 months, with implication s for health and disease. CKD is classified and staged based on cause, eGFR and albuminuria (quantified as urine albumin to creatinine ratio). An eGFR >60 mL/min/1.73 m2 in the absence of increased urine albumin excretion or structural abnormaliti es does not represent CKD. eGFR CKD Interpretat ion (mL/min/1.7 3 m2) stage >=90 G1 Normal 60-89 G2 Mild decrease 45-59 G3A Mild to moderate decrease 30-44 G3B Moderate to severe decrease 15-29 G4 Severe decrease <15 G5 Kidney failure Ordering Provider: ME GERARD GORDILLO Report Released Date/Time: Aug 11, 2024 07:11 PM Reporting Lab: [place] [address] [phone] Performing Lab: [place] [place] [address] [phone] [facility] PANEL 4 CHLORIDE [MOLES/VOL UME] IN SERUM OR PLASMA 111 mmol/L 98 - 107 09/16 H Specimen Type: PLASMA Comment: Estimated Glomerular Filtration Rate (eGFR) calculated using the 2020 Chronic Kidney Disease-Epi demiology (CKD-EPI) Collaborati on creatinine equation; units of measure are mL/min/1.73 m2. Results are only valid for adults (>=18 years) whose serum creatinine is in a steady state. eGFR calculation s are not valid for patients with acute kidney injury and for patients on dialysis. Creatinine- based estimates of kidney function may also be inaccurate in patients with reduced creatinine generation due to decreased muscle mass (e.g., malnutritio n, severe hypoalbumin emia, sarcopenia, chronic neuromuscul ar disease, amputations , severe heart failure or liver disease) and in patients with increased creatinine generation due to increased muscle mass (e.g., muscle builders, anabolic steroids) or increased dietary intake. As drug clearance is proportiona l to total GFR and not GFR indexed to body surface area (BSA), in individuals with a BSA substantial ly different than 1.73 m2, drug dosing should be based on the reported eGFR value de-indexed from BSA by multiplying by the individual' s BSA and dividing by 1.73. CKD is diagnosed based on abnormaliti es of kidney structure or function, present for >3 months, with implication s for health and disease. CKD is classified and staged based on cause, eGFR and albuminuria (quantified as urine albumin to creatinine ratio). An eGFR >60 mL/min/1.73 m2 in the absence of increased urine albumin excretion or structural abnormaliti es does not represent CKD. eGFR CKD Interpretat ion (mL/min/1.7 3 m2) stage >=90 G1 Normal 60-89 G2 Mild decrease 45-59 G3A Mild to moderate decrease 30-44 G3B Moderate to severe decrease 15-29 G4 Severe decrease <15 G5 Kidney failure Ordering Provider: ME GERARD GORDILLO Report Released Date/Time: Aug 11, 2024 07:11 PM Reporting Lab: [place] [place] [facility] [address] [facility] [phone] Performing Lab: [place] [place] [address] [facility] [address] [facility] PANEL 4 CARBON DIOXIDE, TOTAL [MOLES/VOL UME] IN SERUM OR PLASMA 22 mmol/L 22 - 29 09/16 Specimen Type: PLASMA Comment: Estimated Glomerular Filtration Rate (eGFR) calculated using the 2020 Chronic Kidney Disease-Epi demiology (CKD-EPI) Collaborati on creatinine equation; units of measure are mL/min/1.73 m2. Results are only valid for adults (>=18 years) whose serum creatinine is in a steady state. eGFR calculation s are not valid for patients with acute kidney injury and for patients on dialysis. Creatinine- based estimates of kidney function may also be inaccurate in patients with reduced creatinine generation due to decreased muscle mass (e.g., malnutritio n, severe hypoalbumin emia, sarcopenia, chronic neuromuscul ar disease, amputations , severe heart failure or liver disease) and in patients with increased creatinine generation due to increased muscle mass (e.g., muscle builders, anabolic steroids) or increased dietary intake. As drug clearance is proportiona l to total GFR and not GFR indexed to body surface area (BSA), in individuals with a BSA substantial ly different than 1.73 m2, drug dosing should be based on the reported eGFR value de-indexed from BSA by multiplying by the individual' s BSA and dividing by 1.73. CKD is diagnosed based on abnormaliti es of kidney structure or function, present for >3 months, with implication s for health and disease. CKD is classified and staged based on cause, eGFR and albuminuria (quantified as urine albumin to creatinine ratio). An eGFR >60 mL/min/1.73 m2 in the absence of increased urine albumin excretion or structural abnormaliti es does not represent CKD. eGFR CKD Interpretat ion (mL/min/1.7 3 m2) stage >=90 G1 Normal 60-89 G2 Mild decrease 45-59 G3A Mild to moderate decrease 30-44 G3B Moderate to severe decrease 15-29 G4 Severe decrease <15 G5 Kidney failure Ordering Provider: ME GERARD GORDILLO Report Released Date/Time: Aug 11, 2024 07:11 PM Reporting Lab: [facility] [address] [address] Performing Lab: [facility] [address] [facility] [address] [facility] PANEL 4 CALCIUM [MASS/VOLU ME] IN SERUM OR PLASMA 10.1 mg/dL 8.4 - 10.2 09/16 Specimen Type: PLASMA Comment: Estimated Glomerular Filtration Rate (eGFR) calculated using the 2020 Chronic Kidney Disease-Epi demiology (CKD-EPI) Collaborati on creatinine equation; units of measure are mL/min/1.73 m2. Results are only valid for adults (>=18 years) whose serum creatinine is in a steady state. eGFR calculation s are not valid for patients with acute kidney injury and for patients on dialysis. Creatinine- based estimates of kidney function may also be inaccurate in patients with reduced creatinine generation due to decreased muscle mass (e.g., malnutritio n, severe hypoalbumin emia, sarcopenia, chronic neuromuscul ar disease, amputations , severe heart failure or liver disease) and in patients with increased creatinine generation due to increased muscle mass (e.g., muscle builders, anabolic steroids) or increased dietary intake. As drug clearance is proportiona l to total GFR and not GFR indexed to body surface area (BSA), in individuals with a BSA substantial ly different than 1.73 m2, drug dosing should be based on the reported eGFR value de-indexed from BSA by multiplying by the individual' s BSA and dividing by 1.73. CKD is diagnosed based on abnormaliti es of kidney structure or function, present for >3 months, with implication s for health and disease. CKD is classified and staged based on cause, eGFR and albuminuria (quantified as urine albumin to creatinine ratio). An eGFR >60 mL/min/1.73 m2 in the absence of increased urine albumin excretion or structural abnormaliti es does not represent CKD. eGFR CKD Interpretat ion (mL/min/1.7 3 m2) stage >=90 G1 Normal 60-89 G2 Mild decrease 45-59 G3A Mild to moderate decrease 30-44 G3B Moderate to severe decrease 15-29 G4 Severe decrease <15 G5 Kidney failure Ordering Provider: ME GERARD GORDILLO Report Released Date/Time: Aug 11, 2024 07:11 PM Reporting Lab: LEVARNeli CLAIRE [address] [address] Performing Lab: SHAILA CLAIRE [address] [address] [facility] PANEL 4 PHOSPHATE [MASS/VOLU ME] IN SERUM OR PLASMA 3.5 mg/dL 2.3 - 4.7 09/16 Specimen Type: PLASMA Comment: Estimated Glomerular Filtration Rate (eGFR) calculated using the 2020 Chronic Kidney Disease-Epi demiology (CKD-EPI) Collaborati on creatinine equation; units of measure are mL/min/1.73 m2. Results are only valid for adults (>=18 years) whose serum creatinine is in a steady state. eGFR calculation s are not valid for patients with acute kidney injury and for patients on dialysis. Creatinine- based estimates of kidney function may also be inaccurate in patients with reduced creatinine generation due to decreased muscle mass (e.g., malnutritio n, severe hypoalbumin emia, sarcopenia, chronic neuromuscul ar disease, amputations , severe heart failure or liver disease) and in patients with increased creatinine generation due to increased muscle mass (e.g., muscle builders, anabolic steroids) or increased dietary intake. As drug clearance is proportiona l to total GFR and not GFR indexed to body surface area (BSA), in individuals with a BSA substantial ly different than 1.73 m2, drug dosing should be based on the reported eGFR value de-indexed from BSA by multiplying by the individual' s BSA and dividing by 1.73. CKD is diagnosed based on abnormaliti es of kidney structure or function, present for >3 months, with implication s for health and disease. CKD is classified and staged based on cause, eGFR and albuminuria (quantified as urine albumin to creatinine ratio). An eGFR >60 mL/min/1.73 m2 in the absence of increased urine albumin excretion or structural abnormaliti es does not represent CKD. eGFR CKD Interpretat ion (mL/min/1.7 3 m2) stage >=90 G1 Normal 60-89 G2 Mild decrease 45-59 G3A Mild to moderate decrease 30-44 G3B Moderate to severe decrease 15-29 G4 Severe decrease <15 G5 Kidney failure Ordering Provider: ME GERARD GORDILLO Report Released Date/Time: Aug 11, 2024 07:11 PM Reporting Lab: SHAILA CLAIRE [facility] [address] [place] [phone] Performing Lab: LEVARNeli CLAIRE [address] [address] [facility] PANEL 4 ALBUMIN [MASS/VOLU ME] IN SERUM OR PLASMA 4.1 g/dL 3.5 - 5.2 09/16 Specimen Type: PLASMA Comment: Estimated Glomerular Filtration Rate (eGFR) calculated using the 2020 Chronic Kidney Disease-Epi demiology (CKD-EPI) Collaborati on creatinine equation; units of measure are mL/min/1.73 m2. Results are only valid for adults (>=18 years) whose serum creatinine is in a steady state. eGFR calculation s are not valid for patients with acute kidney injury and for patients on dialysis. Creatinine- based estimates of kidney function may also be inaccurate in patients with reduced creatinine generation due to decreased muscle mass (e.g., malnutritio n, severe hypoalbumin emia, sarcopenia, chronic neuromuscul ar disease, amputations , severe heart failure or liver disease) and in patients with increased creatinine generation due to increased muscle mass (e.g., muscle builders, anabolic steroids) or increased dietary intake. As drug clearance is proportiona l to total GFR and not GFR indexed to body surface area (BSA), in individuals with a BSA substantial ly different than 1.73 m2, drug dosing should be based on the reported eGFR value de-indexed from BSA by multiplying by the individual' s BSA and dividing by 1.73. CKD is diagnosed based on abnormaliti es of kidney structure or function, present for >3 months, with implication s for health and disease. CKD is classified and staged based on cause, eGFR and albuminuria (quantified as urine albumin to creatinine ratio). An eGFR >60 mL/min/1.73 m2 in the absence of increased urine albumin excretion or structural abnormaliti es does not represent CKD. eGFR CKD Interpretat ion (mL/min/1.7 3 m2) stage >=90 G1 Normal 60-89 G2 Mild decrease 45-59 G3A Mild to moderate decrease 30-44 G3B Moderate to severe decrease 15-29 G4 Severe decrease <15 G5 Kidney failure Ordering Provider: ME GERARD GORDILLO Report Released Date/Time: Aug 11, 2024 07:11 PM Reporting Lab: SHAILA CLAIRE [address] [address] Performing Lab: SHAILA CLAIRE [address] [address] [facility] PANEL 4 ANION GAP 3 IN SERUM OR PLASMA 12 meq/L 3 - 19 09/16 Specimen Type: PLASMA Comment: Estimated Glomerular Filtration Rate (eGFR) calculated using the 2020 Chronic Kidney Disease-Epi demiology (CKD-EPI) Collaborati on creatinine equation; units of measure are mL/min/1.73 m2. Results are only valid for adults (>=18 years) whose serum creatinine is in a steady state. eGFR calculation s are not valid for patients with acute kidney injury and for patients on dialysis. Creatinine- based estimates of kidney function may also be inaccurate in patients with reduced creatinine generation due to decreased muscle mass (e.g., malnutritio n, severe hypoalbumin emia, sarcopenia, chronic neuromuscul ar disease, amputations , severe heart failure or liver disease) and in patients with increased creatinine generation due to increased muscle mass (e.g., muscle builders, anabolic steroids) or increased dietary intake. As drug clearance is proportiona l to total GFR and not GFR indexed to body surface area (BSA), in individuals with a BSA substantial ly different than 1.73 m2, drug dosing should be based on the reported eGFR value de-indexed from BSA by multiplying by the individual' s BSA and dividing by 1.73. CKD is diagnosed based on abnormaliti es of kidney structure or function, present for >3 months, with implication s for health and disease. CKD is classified and staged based on cause, eGFR and albuminuria (quantified as urine albumin to creatinine ratio). An eGFR >60 mL/min/1.73 m2 in the absence of increased urine albumin excretion or structural abnormaliti es does not represent CKD. eGFR CKD Interpretat ion (mL/min/1.7 3 m2) stage >=90 G1 Normal 60-89 G2 Mild decrease 45-59 G3A Mild to moderate decrease 30-44 G3B Moderate to severe decrease 15-29 G4 Severe decrease <15 G5 Kidney failure Ordering Provider: ME GERARD GORDILLO Report Released Date/Time: Aug 11, 2024 07:11 PM Reporting Lab: SHAILA CLAIRE [address] [phone] Performing Lab: SHAILA CLAIRE [address] [address] LEVAR MAGAÑA [facility] PANEL 4 GLOMERULAR FILTRATION RATE/1.73 SQ M.PREDICTE D [VOLUME RATE/AREA] IN SERUM, PLASMA OR BLOOD BY CREATININE -BASED FORMULA (CKD-EPI 2020) 28 09/16 Specimen Type: PLASMA Comment: Estimated Glomerular Filtration Rate (eGFR) calculated using the 2020 Chronic Kidney Disease-Epi demiology (CKD-EPI) Collaborati on creatinine equation; units of measure are mL/min/1.73 m2. Results are only valid for adults (>=18 years) whose serum creatinine is in a steady state. eGFR calculation s are not valid for patients with acute kidney injury and for patients on dialysis. Creatinine- based estimates of kidney function may also be inaccurate in patients with reduced creatinine generation due to decreased muscle mass (e.g., malnutritio n, severe hypoalbumin emia, sarcopenia, chronic neuromuscul ar disease, amputations , severe heart failure or liver disease) and in patients with increased creatinine generation due to increased muscle mass (e.g., muscle builders, anabolic steroids) or increased dietary intake. As drug clearance is proportiona l to total GFR and not GFR indexed to body surface area (BSA), in individuals with a BSA substantial ly different than 1.73 m2, drug dosing should be based on the reported eGFR value de-indexed from BSA by multiplying by the individual' s BSA and dividing by 1.73. CKD is diagnosed based on abnormaliti es of kidney structure or function, present for >3 months, with implication s for health and disease. CKD is classified and staged based on cause, eGFR and albuminuria (quantified as urine albumin to creatinine ratio). An eGFR >60 mL/min/1.73 m2 in the absence of increased urine albumin excretion or structural abnormaliti es does not represent CKD. eGFR CKD Interpretat ion (mL/min/1.7 3 m2) stage >=90 G1 Normal 60-89 G2 Mild decrease 45-59 G3A Mild to moderate decrease 30-44 G3B Moderate to severe decrease 15-29 G4 Severe decrease <15 G5 Kidney failure Ordering Provider: ME GERARD GORDILLO Report Released Date/Time: Aug 11, 2024 07:11 PM Reporting Lab: SHAILA CLAIRE [address] [phone] Performing Lab: SHAILA CLAIRE [address] [phone] [facility] PANEL 1 CREATININE [MASS/VOLU ME] IN SERUM OR PLASMA 2.39 mg/dL 0.72 - 1.25 05/05 H Specimen Type: PLASMA Comment: Estimated Glomerular Filtration Rate (eGFR) calculated using the 2020 Chronic Kidney Disease-Epi demiology (CKD-EPI) Collaborati on creatinine equation; units of measure are mL/min/1.73 m2. Results are only valid for adults (>=18 years) whose serum creatinine is in a steady state. eGFR calculation s are not valid for patients with acute kidney injury and for patients on dialysis. Creatinine- based estimates of kidney function may also be inaccurate in patients with reduced creatinine generation due to decreased muscle mass (e.g., malnutritio n, severe hypoalbumin emia, sarcopenia, chronic neuromuscul ar disease, amputations , severe heart failure or liver disease) and in patients with increased creatinine generation due to increased muscle mass (e.g., muscle builders, anabolic steroids) or increased dietary intake. As drug clearance is proportiona l to total GFR and not GFR indexed to body surface area (BSA), in individuals with a BSA substantial ly different than 1.73 m2, drug dosing should be based on the reported eGFR value de-indexed from BSA by multiplying by the individual' s BSA and dividing by 1.73. CKD is diagnosed based on abnormaliti es of kidney structure or function, present for >3 months, with implication s for health and disease. CKD is classified and staged based on cause, eGFR and albuminuria (quantified as urine albumin to creatinine ratio). An eGFR >60 mL/min/1.73 m2 in the absence of increased urine albumin excretion or structural abnormaliti es does not represent CKD. eGFR CKD Interpretat ion (mL/min/1.7 3 m2) stage >=90 G1 Normal 60-89 G2 Mild decrease 45-59 G3A Mild to moderate decrease 30-44 G3B Moderate to severe decrease 15-29 G4 Severe decrease <15 G5 Kidney failure Ordering Provider: ARISTEO PALMER RA Report Released Date/Time: Apr 21, 2024 11:25 AM Reporting Lab: SHAILA CLAIRE [address] [phone] Performing Lab: SHAILA CLAIRE [address] [address] [facility] PANEL 1 UREA NITROGEN [MASS/VOLU ME] IN SERUM OR PLASMA 30 mg/dL 05/05 H Specimen Type: PLASMA Comment: Estimated Glomerular Filtration Rate (eGFR) calculated using the 2020 Chronic Kidney Disease-Epi demiology (CKD-EPI) Collaborati on creatinine equation; units of measure are mL/min/1.73 m2. Results are only valid for adults (>=18 years) whose serum creatinine is in a steady state. eGFR calculation s are not valid for patients with acute kidney injury and for patients on dialysis. Creatinine- based estimates of kidney function may also be inaccurate in patients with reduced creatinine generation due to decreased muscle mass (e.g., malnutritio n, severe hypoalbumin emia, sarcopenia, chronic neuromuscul ar disease, amputations , severe heart failure or liver disease) and in patients with increased creatinine generation due to increased muscle mass (e.g., muscle builders, anabolic steroids) or increased dietary intake. As drug clearance is proportiona l to total GFR and not GFR indexed to body surface area (BSA), in individuals with a BSA substantial ly different than 1.73 m2, drug dosing should be based on the reported eGFR value de-indexed from BSA by multiplying by the individual' s BSA and dividing by 1.73. CKD is diagnosed based on abnormaliti es of kidney structure or function, present for >3 months, with implication s for health and disease. CKD is classified and staged based on cause, eGFR and albuminuria (quantified as urine albumin to creatinine ratio). An eGFR >60 mL/min/1.73 m2 in the absence of increased urine albumin excretion or structural abnormaliti es does not represent CKD. eGFR CKD Interpretat ion (mL/min/1.7 3 m2) stage >=90 G1 Normal 60-89 G2 Mild decrease 45-59 G3A Mild to moderate decrease 30-44 G3B Moderate to severe decrease 15-29 G4 Severe decrease <15 G5 Kidney failure Ordering Provider: ARISTEO PALMER RA Report Released Date/Time: Apr 21, 2024 11:25 AM Reporting Lab: SHAILA CLAIRE [address] [phone] Performing Lab: SHAILA CLAIRE [address] [phone] [facility] PANEL 1 GLUCOSE [MASS/VOLU ME] IN SERUM OR PLASMA 126 mg/dL 74 - 100 05/05 H Specimen Type: PLASMA Comment: Estimated Glomerular Filtration Rate (eGFR) calculated using the 2020 Chronic Kidney Disease-Epi demiology (CKD-EPI) Collaborati on creatinine equation; units of measure are mL/min/1.73 m2. Results are only valid for adults (>=18 years) whose serum creatinine is in a steady state. eGFR calculation s are not valid for patients with acute kidney injury and for patients on dialysis. Creatinine- based estimates of kidney function may also be inaccurate in patients with reduced creatinine generation due to decreased muscle mass (e.g., malnutritio n, severe hypoalbumin emia, sarcopenia, chronic neuromuscul ar disease, amputations , severe heart failure or liver disease) and in patients with increased creatinine generation due to increased muscle mass (e.g., muscle builders, anabolic steroids) or increased dietary intake. As drug clearance is proportiona l to total GFR and not GFR indexed to body surface area (BSA), in individuals with a BSA substantial ly different than 1.73 m2, drug dosing should be based on the reported eGFR value de-indexed from BSA by multiplying by the individual' s BSA and dividing by 1.73. CKD is diagnosed based on abnormaliti es of kidney structure or function, present for >3 months, with implication s for health and disease. CKD is classified and staged based on cause, eGFR and albuminuria (quantified as urine albumin to creatinine ratio). An eGFR >60 mL/min/1.73 m2 in the absence of increased urine albumin excretion or structural abnormaliti es does not represent CKD. eGFR CKD Interpretat ion (mL/min/1.7 3 m2) stage >=90 G1 Normal 60-89 G2 Mild decrease 45-59 G3A Mild to moderate decrease 30-44 G3B Moderate to severe decrease 15-29 G4 Severe decrease <15 G5 Kidney failure Ordering Provider: ARISTEO PALMER RA Report Released Date/Time: Apr 21, 2024 11:25 AM Reporting Lab: SHAILA CLAIRE [address] [phone] Performing Lab: SHAILA CLAIRE [address] [phone] [facility] PANEL 1 SODIUM [MOLES/VOL UME] IN SERUM OR PLASMA 140 mmol/L 136 - 145 05/05 Specimen Type: PLASMA Comment: Estimated Glomerular Filtration Rate (eGFR) calculated using the 2020 Chronic Kidney Disease-Epi demiology (CKD-EPI) Collaborati on creatinine equation; units of measure are mL/min/1.73 m2. Results are only valid for adults (>=18 years) whose serum creatinine is in a steady state. eGFR calculation s are not valid for patients with acute kidney injury and for patients on dialysis. Creatinine- based estimates of kidney function may also be inaccurate in patients with reduced creatinine generation due to decreased muscle mass (e.g., malnutritio n, severe hypoalbumin emia, sarcopenia, chronic neuromuscul ar disease, amputations , severe heart failure or liver disease) and in patients with increased creatinine generation due to increased muscle mass (e.g., muscle builders, anabolic steroids) or increased dietary intake. As drug clearance is proportiona l to total GFR and not GFR indexed to body surface area (BSA), in individuals with a BSA substantial ly different than 1.73 m2, drug dosing should be based on the reported eGFR value de-indexed from BSA by multiplying by the individual' s BSA and dividing by 1.73. CKD is diagnosed based on abnormaliti es of kidney structure or function, present for >3 months, with implication s for health and disease. CKD is classified and staged based on cause, eGFR and albuminuria (quantified as urine albumin to creatinine ratio). An eGFR >60 mL/min/1.73 m2 in the absence of increased urine albumin excretion or structural abnormaliti es does not represent CKD. eGFR CKD Interpretat ion (mL/min/1.7 3 m2) stage >=90 G1 Normal 60-89 G2 Mild decrease 45-59 G3A Mild to moderate decrease 30-44 G3B Moderate to severe decrease 15-29 G4 Severe decrease <15 G5 Kidney failure Ordering Provider: ARISTEO PALMER RA Report Released Date/Time: Apr 21, 2024 11:25 AM Reporting Lab: SHAILA CLAIRE [address] [phone] Performing Lab: SHAILA CLAIRE [address] [phone] [facility] PANEL 1 POTASSIUM [MOLES/VOL UME] IN SERUM OR PLASMA 5.0 mmol/L 3.5 - 5.1 05/05 Specimen Type: PLASMA Comment: Estimated Glomerular Filtration Rate (eGFR) calculated using the 2020 Chronic Kidney Disease-Epi demiology (CKD-EPI) Collaborati on creatinine equation; units of measure are mL/min/1.73 m2. Results are only valid for adults (>=18 years) whose serum creatinine is in a steady state. eGFR calculation s are not valid for patients with acute kidney injury and for patients on dialysis. Creatinine- based estimates of kidney function may also be inaccurate in patients with reduced creatinine generation due to decreased muscle mass (e.g., malnutritio n, severe hypoalbumin emia, sarcopenia, chronic neuromuscul ar disease, amputations , severe heart failure or liver disease) and in patients with increased creatinine generation due to increased muscle mass (e.g., muscle builders, anabolic steroids) or increased dietary intake. As drug clearance is proportiona l to total GFR and not GFR indexed to body surface area (BSA), in individuals with a BSA substantial ly different than 1.73 m2, drug dosing should be based on the reported eGFR value de-indexed from BSA by multiplying by the individual' s BSA and dividing by 1.73. CKD is diagnosed based on abnormaliti es of kidney structure or function, present for >3 months, with implication s for health and disease. CKD is classified and staged based on cause, eGFR and albuminuria (quantified as urine albumin to creatinine ratio). An eGFR >60 mL/min/1.73 m2 in the absence of increased urine albumin excretion or structural abnormaliti es does not represent CKD. eGFR CKD Interpretat ion (mL/min/1.7 3 m2) stage >=90 G1 Normal 60-89 G2 Mild decrease 45-59 G3A Mild to moderate decrease 30-44 G3B Moderate to severe decrease 15-29 G4 Severe decrease <15 G5 Kidney failure Ordering Provider: ARISTEO PALMER RA Report Released Date/Time: Apr 21, 2024 11:25 AM Reporting Lab: SHAILA CLAIRE [address] [phone] Performing Lab: SHAILA CLAIRE [address] [phone] [facility] PANEL 1 CHLORIDE [MOLES/VOL UME] IN SERUM OR PLASMA 110 mmol/L 98 - 107 05/05 H Specimen Type: PLASMA Comment: Estimated Glomerular Filtration Rate (eGFR) calculated using the 2020 Chronic Kidney Disease-Epi demiology (CKD-EPI) Collaborati on creatinine equation; units of measure are mL/min/1.73 m2. Results are only valid for adults (>=18 years) whose serum creatinine is in a steady state. eGFR calculation s are not valid for patients with acute kidney injury and for patients on dialysis. Creatinine- based estimates of kidney function may also be inaccurate in patients with reduced creatinine generation due to decreased muscle mass (e.g., malnutritio n, severe hypoalbumin emia, sarcopenia, chronic neuromuscul ar disease, amputations , severe heart failure or liver disease) and in patients with increased creatinine generation due to increased muscle mass (e.g., muscle builders, anabolic steroids) or increased dietary intake. As drug clearance is proportiona l to total GFR and not GFR indexed to body surface area (BSA), in individuals with a BSA substantial ly different than 1.73 m2, drug dosing should be based on the reported eGFR value de-indexed from BSA by multiplying by the individual' s BSA and dividing by 1.73. CKD is diagnosed based on abnormaliti es of kidney structure or function, present for >3 months, with implication s for health and disease. CKD is classified and staged based on cause, eGFR and albuminuria (quantified as urine albumin to creatinine ratio). An eGFR >60 mL/min/1.73 m2 in the absence of increased urine albumin excretion or structural abnormaliti es does not represent CKD. eGFR CKD Interpretat ion (mL/min/1.7 3 m2) stage >=90 G1 Normal 60-89 G2 Mild decrease 45-59 G3A Mild to moderate decrease 30-44 G3B Moderate to severe decrease 15-29 G4 Severe decrease <15 G5 Kidney failure Ordering Provider: ARISTEO PALMER RA Report Released Date/Time: Apr 21, 2024 11:25 AM Reporting Lab: SHAILA CLAIRE [address] [phone] Performing Lab: SHAILA CLAIRE [facility] [address] [facility] [phone] [facility] PANEL 1 CARBON DIOXIDE, TOTAL [MOLES/VOL UME] IN SERUM OR PLASMA 21 mmol/L 22 - 29 05/05 L Specimen Type: PLASMA Comment: Estimated Glomerular Filtration Rate (eGFR) calculated using the 2020 Chronic Kidney Disease-Epi demiology (CKD-EPI) Collaborati on creatinine equation; units of measure are mL/min/1.73 m2. Results are only valid for adults (>=18 years) whose serum creatinine is in a steady state. eGFR calculation s are not valid for patients with acute kidney injury and for patients on dialysis. Creatinine- based estimates of kidney function may also be inaccurate in patients with reduced creatinine generation due to decreased muscle mass (e.g., malnutritio n, severe hypoalbumin emia, sarcopenia, chronic neuromuscul ar disease, amputations , severe heart failure or liver disease) and in patients with increased creatinine generation due to increased muscle mass (e.g., muscle builders, anabolic steroids) or increased dietary intake. As drug clearance is proportiona l to total GFR and not GFR indexed to body surface area (BSA), in individuals with a BSA substantial ly different than 1.73 m2, drug dosing should be based on the reported eGFR value de-indexed from BSA by multiplying by the individual' s BSA and dividing by 1.73. CKD is diagnosed based on abnormaliti es of kidney structure or function, present for >3 months, with implication s for health and disease. CKD is classified and staged based on cause, eGFR and albuminuria (quantified as urine albumin to creatinine ratio). An eGFR >60 mL/min/1.73 m2 in the absence of increased urine albumin excretion or structural abnormaliti es does not represent CKD. eGFR CKD Interpretat ion (mL/min/1.7 3 m2) stage >=90 G1 Normal 60-89 G2 Mild decrease 45-59 G3A Mild to moderate decrease 30-44 G3B Moderate to severe decrease 15-29 G4 Severe decrease <15 G5 Kidney failure Ordering Provider: ARISTEO PALMER RA Report Released Date/Time: Apr 21, 2024 11:25 AM Reporting Lab: [facility] [address] [facility] [address] Performing Lab: [facility] CLAIRE [facility] [address] [facility] [address] [facility] PANEL 1 CALCIUM [MASS/VOLU ME] IN SERUM OR PLASMA 9.9 mg/dL 8.4 - 10.2 05/05 Specimen Type: PLASMA Comment: Estimated Glomerular Filtration Rate (eGFR) calculated using the 2020 Chronic Kidney Disease-Epi demiology (CKD-EPI) Collaborati on creatinine equation; units of measure are mL/min/1.73 m2. Results are only valid for adults (>=18 years) whose serum creatinine is in a steady state. eGFR calculation s are not valid for patients with acute kidney injury and for patients on dialysis. Creatinine- based estimates of kidney function may also be inaccurate in patients with reduced creatinine generation due to decreased muscle mass (e.g., malnutritio n, severe hypoalbumin emia, sarcopenia, chronic neuromuscul ar disease, amputations , severe heart failure or liver disease) and in patients with increased creatinine generation due to increased muscle mass (e.g., muscle builders, anabolic steroids) or increased dietary intake. As drug clearance is proportiona l to total GFR and not GFR indexed to body surface area (BSA), in individuals with a BSA substantial ly different than 1.73 m2, drug dosing should be based on the reported eGFR value de-indexed from BSA by multiplying by the individual' s BSA and dividing by 1.73. CKD is diagnosed based on abnormaliti es of kidney structure or function, present for >3 months, with implication s for health and disease. CKD is classified and staged based on cause, eGFR and albuminuria (quantified as urine albumin to creatinine ratio). An eGFR >60 mL/min/1.73 m2 in the absence of increased urine albumin excretion or structural abnormaliti es does not represent CKD. eGFR CKD Interpretat ion (mL/min/1.7 3 m2) stage >=90 G1 Normal 60-89 G2 Mild decrease 45-59 G3A Mild to moderate decrease 30-44 G3B Moderate to severe decrease 15-29 G4 Severe decrease <15 G5 Kidney failure Ordering Provider: ARISTEO PALMER RA Report Released Date/Time: Apr 21, 2024 11:25 AM Reporting Lab: [facility] [address] [facility] [address] Performing Lab: [facility] CLAIRE [place] [id number] [facility] [address] [facility] PANEL 1 ANION GAP 3 IN SERUM OR PLASMA 9 meq/L 3 - 19 05/05 Specimen Type: PLASMA Comment: Estimated Glomerular Filtration Rate (eGFR) calculated using the 2020 Chronic Kidney Disease-Epi demiology (CKD-EPI) Collaborati on creatinine equation; units of measure are mL/min/1.73 m2. Results are only valid for adults (>=18 years) whose serum creatinine is in a steady state. eGFR calculation s are not valid for patients with acute kidney injury and for patients on dialysis. Creatinine- based estimates of kidney function may also be inaccurate in patients with reduced creatinine generation due to decreased muscle mass (e.g., malnutritio n, severe hypoalbumin emia, sarcopenia, chronic neuromuscul ar disease, amputations , severe heart failure or liver disease) and in patients with increased creatinine generation due to increased muscle mass (e.g., muscle builders, anabolic steroids) or increased dietary intake. As drug clearance is proportiona l to total GFR and not GFR indexed to body surface area (BSA), in individuals with a BSA substantial ly different than 1.73 m2, drug dosing should be based on the reported eGFR value de-indexed from BSA by multiplying by the individual' s BSA and dividing by 1.73. CKD is diagnosed based on abnormaliti es of kidney structure or function, present for >3 months, with implication s for health and disease. CKD is classified and staged based on cause, eGFR and albuminuria (quantified as urine albumin to creatinine ratio). An eGFR >60 mL/min/1.73 m2 in the absence of increased urine albumin excretion or structural abnormaliti es does not represent CKD. eGFR CKD Interpretat ion (mL/min/1.7 3 m2) stage >=90 G1 Normal 60-89 G2 Mild decrease 45-59 G3A Mild to moderate decrease 30-44 G3B Moderate to severe decrease 15-29 G4 Severe decrease <15 G5 Kidney failure Ordering Provider: ARISTEO PALMER RA Report Released Date/Time: Apr 21, 2024 11:25 AM Reporting Lab: [facility] CLA[facility] [address] [address] Performing Lab: [facility] CLAIRE [address] [address] [facility] PANEL 1 GLOMERULAR FILTRATION RATE/1.73 SQ M.PREDICTE D [VOLUME RATE/AREA] IN SERUM, PLASMA OR BLOOD BY CREATININE -BASED FORMULA (CKD-EPI 2020) 27 05/05 Specimen Type: PLASMA Comment: Estimated Glomerular Filtration Rate (eGFR) calculated using the 2020 Chronic Kidney Disease-Epi demiology (CKD-EPI) Collaborati on creatinine equation; units of measure are mL/min/1.73 m2. Results are only valid for adults (>=18 years) whose serum creatinine is in a steady state. eGFR calculation s are not valid for patients with acute kidney injury and for patients on dialysis. Creatinine- based estimates of kidney function may also be inaccurate in patients with reduced creatinine generation due to decreased muscle mass (e.g., malnutritio n, severe hypoalbumin emia, sarcopenia, chronic neuromuscul ar disease, amputations , severe heart failure or liver disease) and in patients with increased creatinine generation due to increased muscle mass (e.g., muscle builders, anabolic steroids) or increased dietary intake. As drug clearance is proportiona l to total GFR and not GFR indexed to body surface area (BSA), in individuals with a BSA substantial ly different than 1.73 m2, drug dosing should be based on the reported eGFR value de-indexed from BSA by multiplying by the individual' s BSA and dividing by 1.73. CKD is diagnosed based on abnormaliti es of kidney structure or function, present for >3 months, with implication s for health and disease. CKD is classified and staged based on cause, eGFR and albuminuria (quantified as urine albumin to creatinine ratio). An eGFR >60 mL/min/1.73 m2 in the absence of increased urine albumin excretion or structural abnormaliti es does not represent CKD. eGFR CKD Interpretat ion (mL/min/1.7 3 m2) stage >=90 G1 Normal 60-89 G2 Mild decrease 45-59 G3A Mild to moderate decrease 30-44 G3B Moderate to severe decrease 15-29 G4 Severe decrease <15 G5 Kidney failure Ordering Provider: ARISTEO PALMER RA Report Released Date/Time: Apr 21, 2024 11:25 AM Reporting Lab: [address] [phone] Performing Lab: [address] [address] [facility] GLUCOSE- HAND MONITOR GLUCOSE [MASS/VOLU ME] IN BLOOD BY AUTOMATED TEST STRIP 110 mg/dL 71 - 99 04/18 H Specimen Type: CAPILLARY Comment: Test performed by: [id number] Meter #: [id number] Ordering Provider: CHERYL HURT Report Released Date/Time: Apr 18, 2024 11:44 AM Reporting Lab: [address] [phone] Performing Lab: [address] [address] [facility] PANEL 1 CREATININE [MASS/VOLU ME] IN SERUM OR PLASMA 2.05 mg/dL 0.72 - 1.25 04/18 H Specimen Type: PLASMA Comment: Estimated Glomerular Filtration Rate (eGFR) calculated using the 2020 Chronic Kidney Disease-Epi demiology (CKD-EPI) Collaborati on creatinine equation; units of measure are mL/min/1.73 m2. Results are only valid for adults (>=18 years) whose serum creatinine is in a steady state. eGFR calculation s are not valid for patients with acute kidney injury and for patients on dialysis. Creatinine- based estimates of kidney function may also be inaccurate in patients with reduced creatinine generation due to decreased muscle mass (e.g., malnutritio n, severe hypoalbumin emia, sarcopenia, chronic neuromuscul ar disease, amputations , severe heart failure or liver disease) and in patients with increased creatinine generation due to increased muscle mass (e.g., muscle builders, anabolic steroids) or increased dietary intake. As drug clearance is proportiona l to total GFR and not GFR indexed to body surface area (BSA), in individuals with a BSA substantial ly different than 1.73 m2, drug dosing should be based on the reported eGFR value de-indexed from BSA by multiplying by the individual' s BSA and dividing by 1.73. CKD is diagnosed based on abnormaliti es of kidney structure or function, present for >3 months, with implication s for health and disease. CKD is classified and staged based on cause, eGFR and albuminuria (quantified as urine albumin to creatinine ratio). An eGFR >60 mL/min/1.73 m2 in the absence of increased urine albumin excretion or structural abnormaliti es does not represent CKD. eGFR CKD Interpretat ion (mL/min/1.7 3 m2) stage >=90 G1 Normal 60-89 G2 Mild decrease 45-59 G3A Mild to moderate decrease 30-44 G3B Moderate to severe decrease 15-29 G4 Severe decrease <15 G5 Kidney failure Ordering Provider: CARLEEN KIM Report Released Date/Time: Apr 17, 2024 03:26 PM Reporting Lab: [facility] CLAIRE [address] [address] Performing Lab: SHAILA CLAIRE [address] [phone] [facility] PANEL 1 UREA NITROGEN [MASS/VOLU ME] IN SERUM OR PLASMA 28 mg/dL 04/18 H Specimen Type: PLASMA Comment: Estimated Glomerular Filtration Rate (eGFR) calculated using the 2020 Chronic Kidney Disease-Epi demiology (CKD-EPI) Collaborati on creatinine equation; units of measure are mL/min/1.73 m2. Results are only valid for adults (>=18 years) whose serum creatinine is in a steady state. eGFR calculation s are not valid for patients with acute kidney injury and for patients on dialysis. Creatinine- based estimates of kidney function may also be inaccurate in patients with reduced creatinine generation due to decreased muscle mass (e.g., malnutritio n, severe hypoalbumin emia, sarcopenia, chronic neuromuscul ar disease, amputations , severe heart failure or liver disease) and in patients with increased creatinine generation due to increased muscle mass (e.g., muscle builders, anabolic steroids) or increased dietary intake. As drug clearance is proportiona l to total GFR and not GFR indexed to body surface area (BSA), in individuals with a BSA substantial ly different than 1.73 m2, drug dosing should be based on the reported eGFR value de-indexed from BSA by multiplying by the individual' s BSA and dividing by 1.73. CKD is diagnosed based on abnormaliti es of kidney structure or function, present for >3 months, with implication s for health and disease. CKD is classified and staged based on cause, eGFR and albuminuria (quantified as urine albumin to creatinine ratio). An eGFR >60 mL/min/1.73 m2 in the absence of increased urine albumin excretion or structural abnormaliti es does not represent CKD. eGFR CKD Interpretat ion (mL/min/1.7 3 m2) stage >=90 G1 Normal 60-89 G2 Mild decrease 45-59 G3A Mild to moderate decrease 30-44 G3B Moderate to severe decrease 15-29 G4 Severe decrease <15 G5 Kidney failure Ordering Provider: CARLEEN KIM Report Released Date/Time: Apr 17, 2024 03:26 PM Reporting Lab: [facility] CLAIRE [address] [address] Performing Lab: SHAILA CLAIRE [address] [phone] [facility] PANEL 1 GLUCOSE [MASS/VOLU ME] IN SERUM OR PLASMA 177 mg/dL 74 - 100 04/18 H Specimen Type: PLASMA Comment: Estimated Glomerular Filtration Rate (eGFR) calculated using the 2020 Chronic Kidney Disease-Epi demiology (CKD-EPI) Collaborati on creatinine equation; units of measure are mL/min/1.73 m2. Results are only valid for adults (>=18 years) whose serum creatinine is in a steady state. eGFR calculation s are not valid for patients with acute kidney injury and for patients on dialysis. Creatinine- based estimates of kidney function may also be inaccurate in patients with reduced creatinine generation due to decreased muscle mass (e.g., malnutritio n, severe hypoalbumin emia, sarcopenia, chronic neuromuscul ar disease, amputations , severe heart failure or liver disease) and in patients with increased creatinine generation due to increased muscle mass (e.g., muscle builders, anabolic steroids) or increased dietary intake. As drug clearance is proportiona l to total GFR and not GFR indexed to body surface area (BSA), in individuals with a BSA substantial ly different than 1.73 m2, drug dosing should be based on the reported eGFR value de-indexed from BSA by multiplying by the individual' s BSA and dividing by 1.73. CKD is diagnosed based on abnormaliti es of kidney structure or function, present for >3 months, with implication s for health and disease. CKD is classified and staged based on cause, eGFR and albuminuria (quantified as urine albumin to creatinine ratio). An eGFR >60 mL/min/1.73 m2 in the absence of increased urine albumin excretion or structural abnormaliti es does not represent CKD. eGFR CKD Interpretat ion (mL/min/1.7 3 m2) stage >=90 G1 Normal 60-89 G2 Mild decrease 45-59 G3A Mild to moderate decrease 30-44 G3B Moderate to severe decrease 15-29 G4 Severe decrease <15 G5 Kidney failure Ordering Provider: CARLEEN KIM Report Released Date/Time: Apr 17, 2024 03:26 PM Reporting Lab: [facility] CLAIRE [address] [address] Performing Lab: SHAILA CLAIRE [address] [address] LEVAR MAGAÑA [facility] PANEL 1 SODIUM [MOLES/VOL UME] IN SERUM OR PLASMA 137 mmol/L 136 - 145 04/18 Specimen Type: PLASMA Comment: Estimated Glomerular Filtration Rate (eGFR) calculated using the 2020 Chronic Kidney Disease-Epi demiology (CKD-EPI) Collaborati on creatinine equation; units of measure are mL/min/1.73 m2. Results are only valid for adults (>=18 years) whose serum creatinine is in a steady state. eGFR calculation s are not valid for patients with acute kidney injury and for patients on dialysis. Creatinine- based estimates of kidney function may also be inaccurate in patients with reduced creatinine generation due to decreased muscle mass (e.g., malnutritio n, severe hypoalbumin emia, sarcopenia, chronic neuromuscul ar disease, amputations , severe heart failure or liver disease) and in patients with increased creatinine generation due to increased muscle mass (e.g., muscle builders, anabolic steroids) or increased dietary intake. As drug clearance is proportiona l to total GFR and not GFR indexed to body surface area (BSA), in individuals with a BSA substantial ly different than 1.73 m2, drug dosing should be based on the reported eGFR value de-indexed from BSA by multiplying by the individual' s BSA and dividing by 1.73. CKD is diagnosed based on abnormaliti es of kidney structure or function, present for >3 months, with implication s for health and disease. CKD is classified and staged based on cause, eGFR and albuminuria (quantified as urine albumin to creatinine ratio). An eGFR >60 mL/min/1.73 m2 in the absence of increased urine albumin excretion or structural abnormaliti es does not represent CKD. eGFR CKD Interpretat ion (mL/min/1.7 3 m2) stage >=90 G1 Normal 60-89 G2 Mild decrease 45-59 G3A Mild to moderate decrease 30-44 G3B Moderate to severe decrease 15-29 G4 Severe decrease <15 G5 Kidney failure Ordering Provider: CARLEEN KIM Report Released Date/Time: Apr 17, 2024 03:26 PM Reporting Lab: [facility] CLA[facility] [address] [address] Performing Lab: SHAILA CLAIRE [address] [address] LEVAR MAGAÑA [facility] PANEL 1 POTASSIUM [MOLES/VOL UME] IN SERUM OR PLASMA 4.3 mmol/L 3.5 - 5.1 04/18 Specimen Type: PLASMA Comment: Estimated Glomerular Filtration Rate (eGFR) calculated using the 2020 Chronic Kidney Disease-Epi demiology (CKD-EPI) Collaborati on creatinine equation; units of measure are mL/min/1.73 m2. Results are only valid for adults (>=18 years) whose serum creatinine is in a steady state. eGFR calculation s are not valid for patients with acute kidney injury and for patients on dialysis. Creatinine- based estimates of kidney function may also be inaccurate in patients with reduced creatinine generation due to decreased muscle mass (e.g., malnutritio n, severe hypoalbumin emia, sarcopenia, chronic neuromuscul ar disease, amputations , severe heart failure or liver disease) and in patients with increased creatinine generation due to increased muscle mass (e.g., muscle builders, anabolic steroids) or increased dietary intake. As drug clearance is proportiona l to total GFR and not GFR indexed to body surface area (BSA), in individuals with a BSA substantial ly different than 1.73 m2, drug dosing should be based on the reported eGFR value de-indexed from BSA by multiplying by the individual' s BSA and dividing by 1.73. CKD is diagnosed based on abnormaliti es of kidney structure or function, present for >3 months, with implication s for health and disease. CKD is classified and staged based on cause, eGFR and albuminuria (quantified as urine albumin to creatinine ratio). An eGFR >60 mL/min/1.73 m2 in the absence of increased urine albumin excretion or structural abnormaliti es does not represent CKD. eGFR CKD Interpretat ion (mL/min/1.7 3 m2) stage >=90 G1 Normal 60-89 G2 Mild decrease 45-59 G3A Mild to moderate decrease 30-44 G3B Moderate to severe decrease 15-29 G4 Severe decrease <15 G5 Kidney failure Ordering Provider: CARLEEN KIM Report Released Date/Time: Apr 17, 2024 03:26 PM Reporting Lab: [facility] CLA[facility] [address] [address] Performing Lab: [facility] CLAIRE [place] [id number] [facility] [address] LEVAR MAGAÑA [facility] PANEL 1 CHLORIDE [MOLES/VOL UME] IN SERUM OR PLASMA 109 mmol/L 98 - 107 04/18 H Specimen Type: PLASMA Comment: Estimated Glomerular Filtration Rate (eGFR) calculated using the 2020 Chronic Kidney Disease-Epi demiology (CKD-EPI) Collaborati on creatinine equation; units of measure are mL/min/1.73 m2. Results are only valid for adults (>=18 years) whose serum creatinine is in a steady state. eGFR calculation s are not valid for patients with acute kidney injury and for patients on dialysis. Creatinine- based estimates of kidney function may also be inaccurate in patients with reduced creatinine generation due to decreased muscle mass (e.g., malnutritio n, severe hypoalbumin emia, sarcopenia, chronic neuromuscul ar disease, amputations , severe heart failure or liver disease) and in patients with increased creatinine generation due to increased muscle mass (e.g., muscle builders, anabolic steroids) or increased dietary intake. As drug clearance is proportiona l to total GFR and not GFR indexed to body surface area (BSA), in individuals with a BSA substantial ly different than 1.73 m2, drug dosing should be based on the reported eGFR value de-indexed from BSA by multiplying by the individual' s BSA and dividing by 1.73. CKD is diagnosed based on abnormaliti es of kidney structure or function, present for >3 months, with implication s for health and disease. CKD is classified and staged based on cause, eGFR and albuminuria (quantified as urine albumin to creatinine ratio). An eGFR >60 mL/min/1.73 m2 in the absence of increased urine albumin excretion or structural abnormaliti es does not represent CKD. eGFR CKD Interpretat ion (mL/min/1.7 3 m2) stage >=90 G1 Normal 60-89 G2 Mild decrease 45-59 G3A Mild to moderate decrease 30-44 G3B Moderate to severe decrease 15-29 G4 Severe decrease <15 G5 Kidney failure Ordering Provider: PROSCHEL,SO PHIA M Report Released Date/Time: Apr 17, 2024 03:26 PM Reporting Lab: [facility] ALETHEA [facility] [address] [facility] [address] Performing Lab: SHAILA CLAIRE [facility] [address] [facility] [address] LEVAR MAGAÑA [facility] PANEL 1 CARBON DIOXIDE, TOTAL [MOLES/VOL UME] IN SERUM OR PLASMA 21 mmol/L - 04/18 L Specimen Type: PLASMA Comment: Estimated Glomerular Filtration Rate (eGFR) calculated using the 2020 Chronic Kidney Disease-Epi demiology (CKD-EPI) Collaborati on creatinine equation; units of measure are mL/min/1.73 m2. Results are only valid for adults (>=18 years) whose serum creatinine is in a steady state. eGFR calculation s are not valid for patients with acute kidney injury and for patients on dialysis. Creatinine- based estimates of kidney function may also be inaccurate in patients with reduced creatinine generation due to decreased muscle mass (e.g., malnutritio n, severe hypoalbumin emia, sarcopenia, chronic neuromuscul ar disease, amputations , severe heart failure or liver disease) and in patients with increased creatinine generation due to increased muscle mass (e.g., muscle builders, anabolic steroids) or increased dietary intake. As drug clearance is proportiona l to total GFR and not GFR indexed to body surface area (BSA), in individuals with a BSA substantial ly different than 1.73 m2, drug dosing should be based on the reported eGFR value de-indexed from BSA by multiplying by the individual' s BSA and dividing by 1.73. CKD is diagnosed based on abnormaliti es of kidney structure or function, present for >3 months, with implication s for health and disease. CKD is classified and staged based on cause, eGFR and albuminuria (quantified as urine albumin to creatinine ratio). An eGFR >60 mL/min/1.73 m2 in the absence of increased urine albumin excretion or structural abnormaliti es does not represent CKD. eGFR CKD Interpretat ion (mL/min/1.7 3 m2) stage >=90 G1 Normal 60-89 G2 Mild decrease 45-59 G3A Mild to moderate decrease 30-44 G3B Moderate to severe decrease 15-29 G4 Severe decrease <15 G5 Kidney failure Ordering Provider: CARLEEN KIM Report Released Date/Time: Apr 17, 2024 03:26 PM Reporting Lab: [facility] CLAIRE [facility] [address] [facility] [phone] Performing Lab: SHAILA CLAIRE [facility] [address] [facility] [phone] [facility] PANEL 1 CALCIUM [MASS/VOLU ME] IN SERUM OR PLASMA 8.6 mg/dL 8.4 - 10.2 04/18 Specimen Type: PLASMA Comment: Estimated Glomerular Filtration Rate (eGFR) calculated using the 2020 Chronic Kidney Disease-Epi demiology (CKD-EPI) Collaborati on creatinine equation; units of measure are mL/min/1.73 m2. Results are only valid for adults (>=18 years) whose serum creatinine is in a steady state. eGFR calculation s are not valid for patients with acute kidney injury and for patients on dialysis. Creatinine- based estimates of kidney function may also be inaccurate in patients with reduced creatinine generation due to decreased muscle mass (e.g., malnutritio n, severe hypoalbumin emia, sarcopenia, chronic neuromuscul ar disease, amputations , severe heart failure or liver disease) and in patients with increased creatinine generation due to increased muscle mass (e.g., muscle builders, anabolic steroids) or increased dietary intake. As drug clearance is proportiona l to total GFR and not GFR indexed to body surface area (BSA), in individuals with a BSA substantial ly different than 1.73 m2, drug dosing should be based on the reported eGFR value de-indexed from BSA by multiplying by the individual' s BSA and dividing by 1.73. CKD is diagnosed based on abnormaliti es of kidney structure or function, present for >3 months, with implication s for health and disease. CKD is classified and staged based on cause, eGFR and albuminuria (quantified as urine albumin to creatinine ratio). An eGFR >60 mL/min/1.73 m2 in the absence of increased urine albumin excretion or structural abnormaliti es does not represent CKD. eGFR CKD Interpretat ion (mL/min/1.7 3 m2) stage >=90 G1 Normal 60-89 G2 Mild decrease 45-59 G3A Mild to moderate decrease 30-44 G3B Moderate to severe decrease 15-29 G4 Severe decrease <15 G5 Kidney failure Ordering Provider: CARLEEN KIM Report Released Date/Time: Apr 17, 2024 03:26 PM Reporting Lab: [facility]C ALETHEA [facility] [address] [facility] [address] Performing Lab: LEVAR-C DD [facility] [address] [facility] [address] [facility] PANEL 1 ANION GAP 3 IN SERUM OR PLASMA 7 meq/L 3 - 19 04/18 Specimen Type: PLASMA Comment: Estimated Glomerular Filtration Rate (eGFR) calculated using the 2020 Chronic Kidney Disease-Epi demiology (CKD-EPI) Collaborati on creatinine equation; units of measure are mL/min/1.73 m2. Results are only valid for adults (>=18 years) whose serum creatinine is in a steady state. eGFR calculation s are not valid for patients with acute kidney injury and for patients on dialysis. Creatinine- based estimates of kidney function may also be inaccurate in patients with reduced creatinine generation due to decreased muscle mass (e.g., malnutritio n, severe hypoalbumin emia, sarcopenia, chronic neuromuscul ar disease, amputations , severe heart failure or liver disease) and in patients with increased creatinine generation due to increased muscle mass (e.g., muscle builders, anabolic steroids) or increased dietary intake. As drug clearance is proportiona l to total GFR and not GFR indexed to body surface area (BSA), in individuals with a BSA substantial ly different than 1.73 m2, drug dosing should be based on the reported eGFR value de-indexed from BSA by multiplying by the individual' s BSA and dividing by 1.73. CKD is diagnosed based on abnormaliti es of kidney structure or function, present for >3 months, with implication s for health and disease. CKD is classified and staged based on cause, eGFR and albuminuria (quantified as urine albumin to creatinine ratio). An eGFR >60 mL/min/1.73 m2 in the absence of increased urine albumin excretion or structural abnormaliti es does not represent CKD. eGFR CKD Interpretat ion (mL/min/1.7 3 m2) stage >=90 G1 Normal 60-89 G2 Mild decrease 45-59 G3A Mild to moderate decrease 30-44 G3B Moderate to severe decrease 15-29 G4 Severe decrease <15 G5 Kidney failure Ordering Provider: CARLEEN KIM Report Released Date/Time: Apr 17, 2024 03:26 PM Reporting Lab: SHAILA CLAIRE [facility] [address] [facility] [address] Performing Lab: SHAILA CLAIRE [facility] [address] [facility] [address] L[place]AR MAGAÑA [facility] PANEL 1 GLOMERULAR FILTRATION RATE/1.73 SQ M.PREDICTE D [VOLUME RATE/AREA] IN SERUM, PLASMA OR BLOOD BY CREATININE -BASED FORMULA (CKD-EPI 2020) 32 04/18 Specimen Type: PLASMA Comment: Estimated Glomerular Filtration Rate (eGFR) calculated using the 2020 Chronic Kidney Disease-Epi demiology (CKD-EPI) Collaborati on creatinine equation; units of measure are mL/min/1.73 m2. Results are only valid for adults (>=18 years) whose serum creatinine is in a steady state. eGFR calculation s are not valid for patients with acute kidney injury and for patients on dialysis. Creatinine- based estimates of kidney function may also be inaccurate in patients with reduced creatinine generation due to decreased muscle mass (e.g., malnutritio n, severe hypoalbumin emia, sarcopenia, chronic neuromuscul ar disease, amputations , severe heart failure or liver disease) and in patients with increased creatinine generation due to increased muscle mass (e.g., muscle builders, anabolic steroids) or increased dietary intake. As drug clearance is proportiona l to total GFR and not GFR indexed to body surface area (BSA), in individuals with a BSA substantial ly different than 1.73 m2, drug dosing should be based on the reported eGFR value de-indexed from BSA by multiplying by the individual' s BSA and dividing by 1.73. CKD is diagnosed based on abnormaliti es of kidney structure or function, present for >3 months, with implication s for health and disease. CKD is classified and staged based on cause, eGFR and albuminuria (quantified as urine albumin to creatinine ratio). An eGFR >60 mL/min/1.73 m2 in the absence of increased urine albumin excretion or structural abnormaliti es does not represent CKD. eGFR CKD Interpretat ion (mL/min/1.7 3 m2) stage >=90 G1 Normal 60-89 G2 Mild decrease 45-59 G3A Mild to moderate decrease 30-44 G3B Moderate to severe decrease 15-29 G4 Severe decrease <15 G5 Kidney failure Ordering Provider: CARLEEN KIM Report Released Date/Time: Apr 17, 2024 03:26 PM Reporting Lab: LEVAR[address] [address] Performing Lab: CARLOS[address] [address] [facility] GLUCOSE- HAND MONITOR GLUCOSE [MASS/VOLU ME] IN BLOOD BY AUTOMATED TEST STRIP 127 mg/dL 71 - 99 04/18 H Specimen Type: CAPILLARY Comment: CARLOS ELLIS notified Test performed by: [id number] Meter #: [id number] Ordering Provider: CHERYL HURT Report Released Date/Time: Apr 18, 2024 07:22 AM Reporting Lab: LEVARNeli [address] [address] Performing Lab: LEVAR[address] [address] [facility] Vital Signs Combined list of inpatient and outpatient Vital Signs from Department of Defense and Veterans Affairs, ranging from 12 months to all on record, depending upon the facility. Vital Sign Value Date Comments Source SYSTOLIC BLOOD PRESSURE 135 12/24/2024 08:32:04 [facility] DIASTOLIC BLOOD PRESSURE 67 12/24/2024 08:32:04 [facility] PULSE OXIMETRY 94 12/24/2024 08:32:04 L [facility] WEIGHT 328.6 12/24/2024 08:32:04 [place] BMI 45 kg/m2 12/24/2024 08:32:04 [place] [facility] PAIN 0 12/24/2024 08:32:04 [place] [facility] TEMPERATURE 98.3 12/24/2024 08:32:04 [place] [facility] PULSE 74 12/24/2024 08:32:04 [place] [facility] SYSTOLIC BLOOD PRESSURE 127 12/10/2024 10:10:00 [facility] DIA[facility] BLO[facility] PRESSURE 61 12/10/2024 10:10:00 [facility] OX[facility] 93 12/10/2024 10:10:00 [place] [facility] WEIGHT 315.0 12/10/2024 10:10:00 [place] [facility] BMI 43 kg/m2 12/10/2024 10:10:00 [place] [facility] PAIN 0 12/10/2024 10:10:00 [place] [facility] TEMPERATURE 98.5 12/10/2024 10:10:00 [place] [facility] PULSE 74 12/10/2024 10:10:00 [place] [facility] RESPIRATION 18 12/10/2024 10:10:00 [place] [facility] SYSTOLIC BLOOD PRESSURE 118 11/12/2024 10:12:00 [facility] DIASTOLIC BLOOD PRESSURE 66 11/12/2024 10:12:00 [facility] WEIGHT 314.0 11/12/2024 10:12:00 [place] [facility] BMI 43 kg/m2 11/12/2024 10:12:00 [place] [facility] PAIN 4 11/12/2024 10:12:00 [place] [facility] TEMPERATURE 98.5 11/12/2024 10:12:00 [place] N[place] [facility] PULSE 82 11/12/2024 10:12:00 [place] [facility] RESPIRATION 20 11/12/2024 10:12:00 [place] N[place] [facility] SYSTOLIC BLOOD PRESSURE 132 10/20/2024 11:51:00 [place] [facility] DIASTOLIC BLOOD PRESSURE 80 10/20/2024 11:51:00 [place] [facility] PAIN 5 10/20/2024 11:51:00 [place] [facility] TEMPERATURE 98.5 10/20/2024 11:51:00 [place] PULSE 82 10/20/2024 11:51:00 [place] [facility] RESPIRATION 14 10/20/2024 11:51:00 [place] SYSTOLIC BLOOD PRESSURE 112 09/16/2024 13:30:45 [place] [facility] DIASTOLIC BLOOD PRESSURE 75 09/16/2024 13:30:45 [place] [facility] PULSE OXIMETRY 95 09/16/2024 13:30:45 [place] [facility] WEIGHT 317.2 09/16/2024 13:30:45 [place] [facility] BMI 43 kg/m2 09/16/2024 13:30:45 [place] [facility] PAIN 6 09/16/2024 13:30:45 [place] [facility] TEMPERATURE 97.5 09/16/2024 13:30:45 [place] PULSE 143 09/16/2024 13:30:45 [place] [facility] Encounters Combined list of: 1) Encounters from Department of Veterans Affairs facilities going backup to the last 18 months, not all [place] inpatient encounters are included; 2) Encounters from the Department of Defense facilities going backup to 280 months. Location Location Details Encounter Type Encounter Number Reason For Visit Attending Provider ADM Date DC Date Status Disposition Source [facility] Outpatient Encounter [id number] 09/19 [place] [facility] HC PRO PHONE CALL 5-10 MIN [id number] Diagnos is: ICD-10- CM Z71.89 Other specifi ed activities counselor Tejeda 09/20 [place] [facility] Outpatient Encounter [id number] 09/27 [place] [facility] Outpatient Encounter [id number] 09/30 [place] [facility] HC PRO PHONE CALL 5-10 MIN [id number] Diagnos is: ICD-10- CM Z71.89 Other specifi ed activities counselor Tejeda 09/30 [place] [facility] Outpatient Encounter [id number] 10/01 [place] [facility] OFFICE O/P EST MOD 30 MIN [id number] Diagnos is: ICD-10- CM N18.30 Chronic kidney disease , stage 3 unspeci Indu Childress 10/01 [place] [facility] COMPRE OPH EXAM EST PT 1/> [id number] Diagnos is: ICD-10- CM E11.9 Type 2 diabete s mellitu s without complic ations RAIMUNDO LOUISE 10/04 [place] [facility] Outpatient Encounter [id number] 10/07 [place] [facility] Outpatient Encounter [id number] 10/16 [place] [facility] ELECTROCAR DIOGRAM COMPLETE [id number] Diagnos is: ICD-10- CM I48.0 Paroxys mal atrial fibrill ation RACHAEL GRAZA IG A 11/01 [place] [facility] OFFICE O/P EST MOD 30 MIN [id number] Diagnos is: ICD-10- CM I48.0 Paroxys mal atrial fibrill BETTE Yanez R 11/04 [place] [facility] MTMS BY PHARM EST 15 MIN [id number] Diagnos is: ICD-10- CM Z51.81 Encount er for therape utic drug level monitor SUKH Arthur RA 11/05 [place] [facility] MTMS BY PHARM EST 15 MIN [id number] Diagnos is: ICD-10- CM Z51.81 Encount er for therape utic drug level monitor SUKH Arthur RA 11/15 [place] [facility] OFFICE O/P EST LOW 20 MIN [id number] Diagnos is: ICD-10- CM E11.40 Type 2 diabete s mellitu s with diabeti c neuropa thy, unsp RODES,MAYRA AN S 11/26 [place] [facility] ORTHC/PROS TC MGMT SBSQ ENC [id number] Diagnos is: ICD-10- CM E11.40 Type 2 diabete s mellitu s with diabeti c neuropa thy, unsp ANGELA,CAN DACE L 12/04 [place] [facility] [place] [id number] Diagnos is: ICD-10- CM E11.40 Type 2 diabete s mellitu s with diabeti c neuropa thy, unsp PACK,PAMEL A S 12/18 [place] [facility] Outpatient Encounter [id number] 01/03 [place] [facility] OFFICE O/P EST MOD 30 MIN [id number] Diagnos is: ICD-10- CM N18.32 Chronic kidney disease , stage 3b Indu GORDILLOAN M 02/04 [place] [facility] Outpatient Encounter [id number] 02/20 [place] [facility] Outpatient Encounter [id number] 02/25 [place] [facility] Outpatient Encounter [id number] 03/03 [place] [facility] OFFICE O/P EST LOW 20 MIN [id number] Diagnos is: ICD-10- CM B35.1 Toddbettina Shana Jay M 03/04 [place] [facility] Outpatient Encounter [id number] 03/28 [place] [facility] Outpatient Encounter [id number] 04/01 [place] [facility] Outpatient Encounter [id number] 04/04 [place] [facility] OFFICE O/P EST MOD 30 MIN [id number] Diagnos is: ICD-10- CM 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 CHAYITO Grijalva R 04/09 [place] [facility] MTMS BY PHARM EST 15 MIN [id number] Diagnos is: ICD-10- CM Z51.81 Encount er for therape utic drug level monitor CHANTEL Murphy 04/10 [place] [facility] EMERGENCY DEPT VISIT MOD MDM [id number] Diagnos is: ICD-10- CM R19.7 Diarrhe a, unspeci fiNeli Kamara 04/15 [place] [facility] [place] [facility] ELECTROCAR DIOGRAM COMPLETE [id number] Diagnos is: ICD-10- CM I48.0 Paroxys mal atrial fibrill atRUSS GainesMAHAMED Márquez 04/15 [place] [facility] [place] [facility] Inpatient Encounter [id number] Admit Reason: Diarrhe a BETTE HURT 04/15 [place] [facility] [place] Inpatient Encounter [id number] 04/16 [place] [facility] [place] [facility] Inpatient Encounter [id number] 04/16 [place] [facility] [place] [facility] Inpatient Encounter [id number] 04/16 [place] [facility] [place] Inpatient Encounter [id number] 04/16 [place] [facility] CASE MANAGEMENT [id number] Diagnos is: ICD-10- CM Z78.9 Other specifi ed health status Ana EDOUARD N 04/16 [place] [facility] [place] Inpatient Encounter [id number] 04/16 [place] [facility] [place] Inpatient Encounter [id number] 04/16 [place] [facility] [place] Inpatient Encounter [id number] 04/16 [place] [facility] [place] Inpatient Encounter [id number] 04/17 [place] [facility] [place] Inpatient Encounter [id number] 04/17 [place] [facility] [place] CASE MANAGEMENT [id number] Diagnos is: ICD-10- CM Z78.9 Other specifi ed health status MITCHELLMILAGROSAna DAWN MONCHO N 04/17 [place] [facility] [place] Inpatient Encounter [id number] 04/17 [place] [facility] [place] Inpatient Encounter [id number] 04/17 [place] [facility] [place] Inpatient Encounter [id number] 04/17 [place] [facility] [place] MTMS BY PHARM ADDL 15 MIN [id number] Diagnos is: ICD-10- CM Z51.81 Encount er for therape utic drug level monitor Neli Elder T 04/17 [place] [facility] [place] Inpatient Encounter [id number] 04/17 [place] [facility] [place] Inpatient Encounter [id number] 04/17 [place] [facility] Inpatient Encounter [id number] 04/17 [place] [facility] [place] [facility] Inpatient Encounter [id number] 04/18 [place] [facility] CASE MANAGEMENT [id number] Diagnos is: ICD-10- CM Z78.9 Other specifi ed health status MITCHELLMILAGROSAna DAWN N 04/18 [place] [facility] Inpatient Encounter [id number] 04/18 [place] [facility] DSCHRG MED/CURREN T MED MERGE [id number] Diagnos is: ICD-10- CM Z51.81 Encount er for therape utic drug level monitor RA JAYLYN Dai 04/18 [place] [facility] Inpatient Encounter [id number] 04/18 [place] [facility] Inpatient Encounter [id number] 04/18 [place] [facility] Inpatient Encounter [id number] 04/18 [place] [facility] Outpatient Encounter [id number] 04/21 [place] [facility]-GUY SOLIS [facility] Outpatient Encounter [id number] VIVIENNE WESTON 04/21 [place] [facility] OFF/OP EST MAY X REQ PHY/QHP [id number] Diagnos is: ICD-10- CM Z71.89 Other specifi ed activities counselor VIVIENNE Colon 04/21 [place] [facility] Outpatient Encounter [id number] VIVIENNE WESTON MY 04/21 [place] [facility] OFF/OP EST MAY X REQ PHY/QHP [id number] Diagnos is: ICD-10- CM Z71.89 Other specifi ed activities counselor VIVIENNE Colon MY 04/21 [place] [facility] Outpatient Encounter [id number] 04/28 [place] [facility] Outpatient Encounter [id number] 05/05 [place] [facility] OFF/OP EST MAY X REQ PHY/QHP [id number] Diagnos is: ICD-10- CM I10 Essenti al (primar y) hyperte aleenaVIVIENNE Fried MY 05/06 [place] [facility] OFFICE O/P EST MOD 30 MIN [id number] Diagnos is: ICD-10- CM E11.22 Type 2 diabete s mellitu s w diabeti c chronic kidney disease Indu GORDILLO 05/09 [place] PRO PHONE CALL 21-30 MIN [id number] [id number] Diagnos is: ICD-10- CM I10 Essenti al (primar y) hyperte ME JOSE Cantu 05/09 [place] [facility] Outpatient Encounter [id number] 05/13 [place] [facility] SELF-MGMT EDUC & TRAIN 1 [place] [id number] Diagnos is: ICD-10- CM I10 Essenti al (primar y) hyperte ME JOSE Cantu L 05/13 [place] [facility] HC PRO PHONE CALL 11-20 MIN [id number] Diagnos is: ICD-10- CM I10 Essenti al (primar y) hyperte ME JOSE Cantu L 05/13 [place] [facility] HC PRO PHONE CALL 5-10 MIN [id number] Diagnos is: ICD-10- CM I10 Essenti al (primar y) hyperte VIVIENNE Mason 05/13 [place] [facility] Outpatient Encounter [id number] 05/15 [place] [facility] Outpatient Encounter [id number] 05/19 [place] [facility] EVALUATION OF WHEEZING [id number] [id number] Diagnos is: ICD-10- CM R06.00 Dyspnea , unspeci bebaed JULIANA ASTORGA 05/20 [place] [facility] HC PRO PHONE CALL 11-20 MIN [id number] Diagnos is: ICD-10- CM I10 Essenti al (primar y) hyperte martínez SANTOSME GARCIA L 05/21 [place] [facility] HC PRO PHONE CALL 5-10 MIN [id number] Diagnos is: ICD-10- CM R06.00 Dyspnea , unspeci fiVIVIENNE Cruz 05/21 [place] [facility] HC PRO PHONE CALL 21-30 MIN [id number] Diagnos is: ICD-10- CM I10 Essenti al (primar y) hyperte ME JOSE Cantu 05/22 [place] [facility] HC PRO PHONE CALL 21-30 MIN [id number] Diagnos is: ICD-10- CM I10 Essenti al (primar y) hyperte ME JOSE Cantu 05/26 [place] [facility] Outpatient Encounter [id number] Diagnos is: ICD-10- CM Z03.89 Encntr for obs for oth suspect ed disease s and cond ruled out ME JOSE SANTOS 05/29 [place] [facility] Outpatient Encounter [id number] 06/11 [place] [facility] Outpatient Encounter [id number] 06/11 [place] [facility] HC PRO PHONE CALL 11-20 MIN [id number] Diagnos is: ICD-10- CM I10 Essenti al (primar y) hyperte ME JOSE Cantu 06/17 [place] [facility] OFFICE O/P EST MOD 30 MIN [id number] Diagnos is: ICD-10- CM I48.0 Paroxys mal atrial fibrill atDONALDO Park 06/25 [place] [facility] Outpatient Encounter [id number] Diagnos is: ICD-10- CM Z03.89 Encntr for obs for oth suspect ed disease s and cond ruled out ME JOSE SANTOS 06/27 [place] [facility] Outpatient Encounter [id number] 07/03 [place] [facility] HC PRO PHONE CALL 21-30 MIN [id number] Diagnos is: ICD-10- CM I10 Essenti al (primar y) hyperte nsion ME JOSE SANTOS L 07/03 [place] [facility] Outpatient Encounter [id number] ME JOSE SANTOS L 07/03 [place] [facility] Outpatient Encounter [id number] 42 07/04 [place] OFFICE O/P EST LOW 20 MIN [id number] Diagnos is: ICD-10- CM E11.21 Type 2 diabete s mellitu s with diabeti c nephrop Shana Braxton 07/08 [place] [facility] Outpatient Encounter [id number] Mary HAYES 07/14 [place] [facility] OFFICE O/P EST MOD 30 MIN [id number] Diagnos is: ICD-10- CM N18.30 Chronic kidney disease , stage 3 unspeci Indu Childress 09/16 [place] Outpatient Encounter [id number] 10/01 [place] EMERGENCY DEPT VISIT LOW MDM [id number] Diagnos is: ICD-10- CM L02.212 [place] abscess of back [any part, except buttock ] MELINDA GARCIA 10/20 [place] PH1 ASSMT&MGMT NQHP 5-10 [id number] Diagnos is: ICD-10- CM L02.212 [place] abscess of back [any part, except buttock ] GABRIEL RAE S 10/22 [place] [facility] OFFICE O/P EST LOW 20 MIN [id number] Diagnos is: ICD-10- CM L72.0 Epiderm al cyst SOLE MENDOZA 10/29 [place] Outpatient Encounter [id number] 10/29 [place] [facility] COMPRE OPH EXAM EST PT 1/> [id number] Diagnos is: ICD-10- CM E11.9 Type 2 diabete s mellitu s without complic ations RAIMUNDO LOUISE 11/04 [place] [facility] OFFICE O/P EST LOW 20 MIN [id number] Diagnos is: ICD-10- CM E11.40 Type 2 diabete s mellitu s with diabeti c neuropa thy, unsp FOLLMER,AM Y S 11/04 [place] [facility] Outpatient Encounter [id number] MARCIAL DUTTON 11/04 [place] [facility] OFFICE O/P EST LOW 20 MIN [id number] Diagnos is: ICD-10- CM L72.0 Epiderm al cyst SOLE MENDOZA 11/12 [place] PH1 ASSMT&MGMT NQHP 5-10 [id number] Diagnos is: ICD-10- CM 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 ME JOSE Perez 11/13 [place] [facility] OFFICE O/P EST SF 10 MIN [id number] Diagnos is: ICD-10- CM T81.329 D Deep Disrupt /dehisc of operati on wound, unspeci fied, subs SOLE MENDOZA 12/10 [place] Outpatient Encounter [id number] 12/15 [place] [facility] Outpatient Encounter [id number] 12/15 [place] [facility] OFFICE O/P EST MOD 30 MIN [id number] Diagnos is: ICD-10- CM I48.0 Paroxys mal atrial fibrill ation DONALDO SANDERS 12/24 [place] Outpatient Encounter [id number] 01/09 [place] Outpatient Encounter [id number] 01/12 [place] Outpatient Encounter [id number] 01/21 [place] [facility] ORTHC/PROS TC MGMT SBSQ ENC [id number] Diagnos is: ICD-10- CM E11.40 Type 2 diabete s mellitu s with diabeti c neuropa thy, unsp STEVE MILLER L 01/28 [place] [facility] OFF/OP EST NOVEMBER X REQ PHY/QHP [id number] Diagnos is: ICD-10- CM B35.1 IVY Bey 02/04 [place] [facility] Social History Combined list of available smoking, tobacco, and other social history from Department of Defense and Veterans Affairs facilities. Social History Type Response Date Comment Source Tobacco smoking status [facility]-TOBACCO FORMER USER 04/09/2024 [facility] History of tobacco use DC-TOBACCO QUIT 15 YRS OR MORE 04/09/2024 [facility] History of tobacco use DC-TOBACCO FORMER USER 05/08/2023 [facility] History of tobacco use DC-TOBACCO FORMER USER 05/26/2022 [facility] History of tobacco use DC-TOBACCO FORMER USER 06/22/2021 [facility] History of tobacco use DC-TOBACCO FORMER USER 07/05/2020 [facility] of [facility]/25/2019 [facility] History of tobacco use DC-TOBACCO FORMER USER 06/27/2018 [facility] History of tobacco use V9 LIFETIME NON-USER OF TOBACCO 07/27/2017 [facility] History of tobacco use V9 LIFETIME NON-USER OF TOBACCO 08/22/2016 [facility] History of tobacco use V9 LIFETIME NON-USER OF TOBACCO 09/14/2015 [facility] History of tobacco use V9 LIFETIME NON-USER OF TOBACCO 09/03/2014 [facility] History of tobacco use V9 QUIT TOBACCO IN THE LAST 12 MONTHS 04/22/2013 [facility] History of tobacco use V9 QUIT TOBACCO >12 MO and <7 YRS AGO 06/14/2012 [facility] History of tobacco use V9 QUIT TOBACCO >7 YEARS AGO 02/07/2011 [facility] History of tobacco use V9 QUIT TOBACCO >7 YEARS AGO 01/20/2010 [facility] History of tobacco use V9 QUIT TOBACCO >7 YEARS AGO 12/08/2008 [facility] History of tobacco use V9 CURRENT TOBACCO USER 09/25/2007 [facility] History of tobacco use V9 CURRENT TOBACCO USER 08/16/2006 [facility] History of tobacco use HF V9 SECOND [facility] of tobacco use HF V9 CURRENT SMOKER 09/19/2005 SMOKES ABOUT 1/2 PPD [facility] History of tobacco use HF V9 SECOND [facility]ACCO [facility] History of tobacco use HF V9 THIRD TOBACCO MAGISTRATE 08/30/2004 SMOKES UP TO 1 PACK EVERY COUPLE OF DAYS [facility] History of tobacco use HF V9 CURRENT [facility]KER [facility] History of tobacco use HF V9 SECOND TOBACCO MAGISTRATE 09/01/2003 10 CIGARETTES A DAY [facility] History of tobacco use HF V9 CURRENT SMOKER 10/21/2002 1 pack a day [facility] Plan of Care List of future care activities from Department of [facility] Affairs facilities. Additional future care activities may be listed in the Assessment and Plan section. Date/Time Care Activity Care Activity Detail Facili ty 03/16/2025 AMBULATORY - NONE AMBULATORY - NONE [facility]
[2025-03-02] VITALS (10 sets, daily range): BP systolic 97–118; BP diastolic 57–79; PULSE 58–118; RESP 13–20; TEMP 36.6–36.7; O2SAT 94–96; BMI 43.0
--- NOTE | 2025-03-02 03:36 | ECG_ITS ---
APPROVED REPORT Exam: Resting ECG HR:97 bpm ECG Measurements Heart Rate 97 AXES QRSd 133 QRS 91 QT 385 T 14 QTc 440 Conclusion ATRIAL FIBRILLATION RIGHT BUNDLE BRANCH BLOCK [120+ ms QRS DURATION, UPRIGHT V1, 40+ ms S IN I/aVL/V4/V5/V6] ABNORMAL ECG UNCONFIRMED REPORT Electronically signed by : DARIEN AZUL, 03/03/2025 04:18:51
--- NOTE | 2025-03-02 03:40 | CT_ITS ---
PROCEDURE INFORMATION: Exam: CT Head Without Contrast Exam date and time: 03/02/2025 4:22 AM Age: 79 years old Clinical indication: Dizziness; Additional info: Acute dizziness TECHNIQUE: Imaging protocol: Computed tomography of the head without contrast. Radiation optimization: All CT scans at this facility use at least one of these dose optimization techniques: automated exposure control; mA and/or kV adjustment per patient size (includes targeted exams where dose is matched to clinical indication); or iterative reconstruction. COMPARISON: No relevant prior studies available. FINDINGS: Brain: Mild cerebral and cerebellar atrophy. No hemorrhage. Symmetric hypoattenuation in the periventricular white matter. No mass or mass effect. Small lacunar infarct in the left basal ganglia. Pineal calcification. Cerebral ventricles: Mild ventriculomegaly. Paranasal sinuses: Visualized sinuses are unremarkable. No fluid levels. Mastoid air cells: Visualized mastoid air cells are well aerated. Bones: Unremarkable. No acute fracture. Soft tissues: Unremarkable. IMPRESSION: 1. No acute intracranial abnormality. 2. Age-related cortical atrophy. 3. Hypoattenuation in the periventricular white matter, suspicious for small vessel ischemic disease.
--- NOTE | 2025-03-02 03:40 | CT_ITS ---
PROCEDURE INFORMATION: Exam: CTA Head With Contrast, Arteriography Exam date and time: 03/02/2025 4:24 AM Age: 79 years old Clinical indication: Dizziness and giddiness; Additional info: Acute dizziness TECHNIQUE: Imaging protocol: Computed tomographic angiography of the head with contrast. Exam focused on the arteries. 3D rendering (Not supervised by radiologist): MIP and/or 3D reconstructed images were created by the technologist. Radiation optimization: All CT scans at this facility use at least one of these dose optimization techniques: automated exposure control; mA and/or kV adjustment per patient size (includes targeted exams where dose is matched to clinical indication); or iterative reconstruction. Contrast material: ISOVUE; Contrast volume: 80 ml; Contrast route: INTRAVENOUS (IV); COMPARISON: CT HEAD/BRAIN WO CON 03/02/2025 4:22 AM FINDINGS: ANTERIOR CIRCULATION: Right internal carotid artery: Calcification and mild stenosis of the cavernous ICA. No aneurysm. Right middle cerebral artery: No occlusion or significant stenosis. No aneurysm. Right anterior cerebral artery: No occlusion or significant stenosis. No aneurysm. Left internal carotid artery: Calcification and mild stenosis of the cavernous ICA. No aneurysm. Left middle cerebral artery: No occlusion or significant stenosis. No aneurysm. Left anterior cerebral artery: No occlusion or significant stenosis. No aneurysm. POSTERIOR CIRCULATION: Right vertebral artery: No occlusion or significant stenosis. No aneurysm. Left vertebral artery: No occlusion or significant stenosis. No aneurysm. Basilar artery: No occlusion or significant stenosis. No aneurysm. Right posterior cerebral artery: No occlusion or significant stenosis. No aneurysm. Left posterior cerebral artery: No occlusion or significant stenosis. No aneurysm. Brain: No definite mass, mass effect, or midline shift. Cerebral ventricles: No ventriculomegaly. Bones/joints: Unremarkable. No acute fracture. Soft tissues: Unremarkable. IMPRESSION: Calcification and mild stenosis of the bilateral cavernous ICA.
--- NOTE | 2025-03-02 03:40 | CT_ITS ---
PROCEDURE INFORMATION: Exam: CTA Neck With Contrast Exam date and time: 03/02/2025 4:24 AM Age: 79 years old Clinical indication: Dizziness and giddiness; Additional info: Acute dizziness TECHNIQUE: Imaging protocol: Computed tomographic angiography of the neck with contrast. Exam focused on the cervical segments of the vasculature. 3D rendering (Not supervised by radiologist): MIP and/or 3D reconstructed images were created by the technologist. Radiation optimization: All CT scans at this facility use at least one of these dose optimization techniques: automated exposure control; mA and/or kV adjustment per patient size (includes targeted exams where dose is matched to clinical indication); or iterative reconstruction. Contrast material: ISOVUE; Contrast volume: 75 ml; Contrast route: INTRAVENOUS (IV); COMPARISON: CT ANGIO NECK 03/02/2025 4:24 AM FINDINGS: Limitations: Motion artifact degrades image quality and limits the sensitivity of this examination. Right common carotid artery: No stenosis. No dissection or occlusion. Right internal carotid artery: Bulky calcification of the right carotid bulb with moderate stenosis of the proximal ICA. Right external carotid artery: No occlusion or stenosis of the origin. Left common carotid artery: No stenosis. No dissection or occlusion. Left internal carotid artery: Bulky calcification of the left carotid bulb with severe stenosis of the proximal ICA. Left external carotid artery: No occlusion or stenosis of the origin. Right vertebral artery: No stenosis. No dissection or occlusion. Left vertebral artery: No stenosis. No dissection or occlusion. Soft tissues: Normal. No significant soft tissue swelling. Bones/joints: Degenerative changes in the cervical spine. IMPRESSION: 1. Bulky calcification of the right carotid bulb with moderate stenosis of the proximal ICA. 2. Bulky calcification of the left carotid bulb with severe stenosis of the proximal ICA. REFERENCES: NASCET CRITERIA. The degree of stenosis in the cervical segment of the internal carotid artery is based on NASCET criteria. Normal is no stenosis. Mild is less than 50% stenosis. Moderate is 50-69% stenosis. Severe is 70% to 99% stenosis. Total occlusion is no detectable patent lumen.
[2025-03-02] MEDS: MECLIZINE 25MG TABLET 25 MG PO (03:42)
[2025-03-02 03:44] LABS: Hematocrit 37.9 % (42.0-52.0); Hemoglobin 12.1 g/dL (14.1-18.0); Immature Granulocytes % 0.4 %; Mean Corpuscular HGB Conc 31.9 g/dL (31.8-35.4); Mean Corpuscular Hemoglobin 28.5 pg (27.0-31.2); Mean Corpuscular Volume 89.4 fl (80-94); Nucleated Red Blood Cells % 0 %; Platelet Count 180 K/mm3 (142-424); Red Blood Count 4.24 M/mm3 (4.60-6.20); Red Cell Distribution Width-SD 42.6 fL; White Blood Count 13.3 K/mm3 (4.8-10.8)
--- OUTSIDE RECORDS SUMMARY | 2025-03-02 03:49 | XMS_ITS | Encounter Summary ---
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 Phone MAYLIN PALMER Primary Care Provider Unavailabl e Insurance Providers: [...] RISSA SHIRLEY Mar 04, 2012 RISSA RODRIGUEZ [id number] HERONNORMA RICHARDS PATIENT [facility] ADVANTAGE [facility](W NR) Jul 30, 2017 [id number] [phone] HERON,NORMA [place] [facility] MEDIC[facility] ADVANTAGE [facility] (WNR) Jul 30, 2017 [id number] [phone] HERON,NORMA WE[place] PATIENT [facility] (WNR) [facility] [employer] MEDIC ARE BRAULIO Connell Jul 30, 2012 [id number] HERONNORMA RICHARDS PATIENT MEDICARE (WNR) MEDICARE (M) PART A Jul 30, 2017 PART A [id number] NORMA SHELBY PATIENT MEDICARE (WNR) MEDICARE (M) PART B Jul 30, 2017 PART B [id number] NORMA SHELBY PATIENT MEDICARE PART D (WNR) PRESCRIPT ION PART D Jul 30, 2017 PART D [id number] [phone] NORMA SHELBY PATIENT MEDICARE PART D (WNR) MEDICARE (M) PART D Jul 30, 2017 PART D [id number] [phone] NORMA SHELBY PATIENT MEDICARE PART D (WNR) MEDICARE (M) PART D Jul 30, 2017 PART D [id number] NORMA SHELBY PATIENT MEDICARE PART D (WNR) MEDICARE (M) PART D Jul 30, 2012 PART D [id number] NORMA SHELBY PATIENT Selected Encounter This section includes the information on record at [place] for the Encounter. Date/Time Encounter Type Encounter Description Reason Pro vider Source IHE Encounter Template Text not used by [facility]
--- OUTSIDE RECORDS SUMMARY | 2025-03-02 03:50 | XMS_ITS | Clinical Summary ---
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 Role Phone Unavailable Primary Care Provider Unavailabl e Social History Tobacco Use Types Packs/Day Years Used Date Smoking Tobacco: Never Assessed Sex and Gender Information Value Date Recorded Sex Assigned at Not on file Legal Sex Male 2:52 PM EDT Gender Identity Not on file Sexual Orientation Not on file Plan of Treatment Health Maintenance Due Date Last Done Comments TDAP/TD VACCINES (1 - Tdap) 11/20/1962 Pneumococcal Vaccine 50+ (1 of 1 - PCV) 11/20/1993 ZOSTER VACCINE (1 of 2) 11/20/1993 RSV Vaccine - Adults (1 - 1-dose 75+ series) 9 COVID-19 Vaccine ( - 2023- season) 2024 ANNUAL PHYSICAL 01/16/2025 INFLUENZA VACCINE 04/29/2025 Insurance [id number] Medicare Advantage GROUP PPO
[2025-03-02 03:51] LABS: Albumin Level 3.3 g/dl (3.5-5.0); Chloride 105 mmol/L (98-107)
[2025-03-02 03:52] LABS: Potassium 5.0 mmoL/L (3.5-5.1); Sodium 134 mmol/L (136-145)
[2025-03-02 03:54] LABS: Alanine Aminotransferase 29 U/L (12-78); Alkaline Phosphatase 59 U/L (38-126); Anion Gap 10.0 mEq/L (5-15); Aspartate Amino Transferase 39 U/L (17-59); Bilirubin,Total 0.3 mg/dl (0.2-1.3); Blood Urea Nitrogen 32 mg/dl (9-20); Carbon Dioxide 24 mmol/L (22.0-30.0); Creatinine Clearance Estimated 34 mL/min (50-200); Creatinine,Serum 2.00 mg/dl (0.66-1.25); Estimated Glomerular Filt Rate 32 ml/min (>60); GFR (African American) 39 ML/MIN (>60)
[2025-03-02 03:55] LABS: Albumin/Globulin Ratio 0.8 (1.1-1.8); Calcium 9.5 mg/dl (8.4-10.2); Globulin 4.1 g/dL (1.3-3.2); Glucose 189 mg/dl (74-100); Magnesium 1.6 mg/dl (1.6-2.3); Total Protein,Serum 7.4 g/dl (6.3-8.2)
--- NOTE | 2025-03-02 04:04 | PC.NURSE ---
pt escorted by radiology to CT scan.
[2025-03-02 04:08] LABS: Troponin I < 0.01 ng/ml (0.00-0.034)
--- NOTE | 2025-03-02 04:15 | HMH.EDGENADL ---
Discharge Plan Disposition Patient Disposition: Home, Self-Care Prescriptions Prescriptions: New meclizine 25 mg tablet 25 mg PO BID PRN (Reason: dizziness) Qty: 60 0RF No Action lisinopril 40 MG tablet 40 mg PO DAILY gabapentin 300 MG capsule 600 mg PO BID atorvastatin 40 mg Tablet 20 mg PO HS metformin 500 mg Tablet 500 mg PO BID carvedilol 25 mg Tablet 25 mg PO BID Rx Instructions: must administer with a meal/food spironolactone 25 mg Tablet 25 mg PO DAILY pantoprazole [Protonix] 40 mg Tablet,Delayed Release (Dr/Ec) 40 mg PO BID aspirin 81 mg Tablet,Delayed Release (Dr/Ec) 81 mg PO DAILY 30 Days Qty: 30 0RF Eliquis 2.5 mg tablet 2.5 mg PO BID Qty: 60 0RF Referrals Follow up/Referrals: Provider,Referral, MD [Primary Care Provider, Medical] - See instructions Activity Restrictions/Add. Instructions Additional Instructions/Restrictions: Please follow-up with your PCP for further assessment of your carotid artery stenosis and your vertigo. I sent a prescription for meclizine which could help with your dizziness. Clinical Impressions Clinical Impression: Benign paroxysmal positional vertigo, Carotid artery stenosis, Feeling of chest tightness Print Language Print Language: Romansh Discharge ED Provider: Yazan Caldera General Adult HPI General Chief complaint: Chest Pain Stated complaint: Dizziness Time Seen by Provider: 03/02/25 03:40 Mode of Arrival: EMS Source of Information: EMS Description of Symptoms (Recalled from ER Triage Doc. by RN): pt states he had a sudden onset of chest tightness accompanied by dizziness and vision changes that started at 0200. BG 180. Pt ao x4 History of Present Illness HPI narrative: 79-year-old male with history of of paroxysmal A-fib, chronic kidney disease, hypertension presents for dizziness. He reports that he was rolling over in bed when he suddenly felt dizzy and had a little bit of tightness in his chest. He tried to lay down while waiting for the ambulance, and he felt like the room was spinning. He denies any chest pain or current chest pressure. Symptoms started around 2:00 in the morning. EMS reports hemodynamically stable en route, negative orthostatics, blood sugar 180. Related Data Home Medications ?Medication ?Instructions ?Recorded ?Confirmed lisinopril 40 mg tablet 40 mg PO DAILY 08/02/17 03/02/25 gabapentin 300 mg capsule 600 mg PO BID 06/04/18 03/02/25 atorvastatin 40 mg tablet 20 mg PO HS 01/08/25 03/02/25 carvedilol 25 mg tablet 25 mg PO BID 01/08/25 03/02/25 metformin 500 mg tablet 500 mg PO BID 01/08/25 03/02/25 pantoprazole 40 mg tablet,delayed 40 mg PO BID 01/08/25 03/02/25 release (Protonix) spironolactone 25 mg tablet 25 mg PO DAILY 01/08/25 03/02/25 Previous Rx's ?Medication ?Instructions ?Recorded apixaban 2.5 mg tablet (Eliquis) 2.5 mg PO BID #60 tabs 01/08/25 aspirin 81 mg tablet,delayed 81 mg PO DAILY 30 days #30 tabs 01/08/25 release meclizine 25 mg tablet 25 mg PO BID PRN dizziness #60 tabs 03/02/25 Allergies Allergy/AdvReac Type Severity Reaction Status Date / Time No Known Allergies Allergy Verified 01/29/25 14:18 [facility] Disclaimer: The information contained in this section may have been updated after the patient was seen, as this information can be updated by other users. Medical History Osteoarthritis Surgical History History of hip replacement, total left and right History of cholecystectomy Social History Smoking Status: Never smoker years smoked: 48 smoking status stop date: 15 years ago second hand exposure: No alcohol intake: never substance use type: denies use current occupational status: retired Travel in the last 8 weeks?: None household members: spouse and none housing: house current occupational exposures/hazards: No caffeine: Yes Have you lived/traveled outside [place] in past 30 days?: No Contact w/someone who lives/traveled outside [place] past 30 days?: No Exposure to someone with infectious disease in past 14 days?: No Do you have a fever (greater than 100.4 F or 38 C)?: No Have you tested positive for COVID-19?: No Exposed to someone with COVID-19 in past 14 days?: No Do you have a sore throat?: No Do you have a cough?: No Do you have any weakness?: No Do you have any diarrhea?: No Are you experiencing any unusual bleeding?: No Do you have any muscle aches/pain?: No Do you have any abdominal pain?: No Are you experiencing loss of taste or smell?: No Other Medical History Have you received the Flu Vaccine for this season: No Have you received the Pneumonia Vaccine: Yes ROS Obtained: Yes All systems reviewed & no additional complaints except as documented Physical Exam General General appearance: alert and in no apparent distress Head Head exam: atraumatic and normocephalic Eye Eye exam: Present normal appearance, PERRL and EOMI ENT ENT exam: Present normal oropharynx and normal external ear exam Neck Neck exam: Present normal inspection and full ROM Chest Chest inspection: Present normal inspection and symmetric chest wall rise; Absent tenderness Respiratory Respiratory exam: Present normal lung sounds bilaterally; Absent respiratory distress Cardiovascular Cardiovascular exam: Present regular rate and normal rhythm Abdominal Exam Abdominal exam: Present soft; Absent distention, tenderness or guarding Extremities Exam Extremities exam: Present normal inspection; Absent edema or joint swelling Back Exam Back exam: Present normal inspection; Absent tenderness Neurological Exam Neurological exam: Present alert and oriented X3; Absent motor sensory deficit Psychiatric Psychiatric exam: Present normal affect and normal mood Skin Skin exam: Present warm, dry and normal color Lymphatic Lymphatic Findings: no adenopathy Medical Decision Making Medical Records Medical records reviewed: Yes I reviewed the patient's medical records. Screening: Per USPSTF and CDC recommendations, given the prevalence of disease in our region, it is our hospital?s policy to screen for HIV and viral Hepatitis for all patients aged 18 and over and those with ongoing risk factors. [place] Inquiry Pt receiving controlled substance: No [place] was queried for this patient: No Vital Signs: 03/02/25 03:38 03/02/25 03:39 03/02/25 03:41 Temperature 98.1 F Temperature Source Oral Pulse Rate 58 L 65 Pulse Rate [Left Radial] 65 Respiratory Rate 20 18 Blood Pressure Blood Pressure [Left Arm] 116/66 Blood Pressure Mean Blood Pressure Mean [Left Arm] 82 Blood Pressure Source [Left Arm] Automatic Cuff 02 Sat by Pulse Oximetry 96 96 Oxygen Delivery Method Room Air Room Air 03/02/25 03:45 03/02/25 04:00 03/02/25 04:30 Temperature Temperature Source Pulse Rate 93 H 73 80 Pulse Rate [Left Radial] Respiratory Rate 18 13 Blood Pressure 104/79 L 118/70 Blood Pressure [Left Arm] Blood Pressure Mean Blood Pressure Mean [Left Arm] Blood Pressure Source [Left Arm] 02 Sat by Pulse Oximetry 96 95 95 Oxygen Delivery Method Room Air 03/02/25 05:01 03/02/25 06:01 03/02/25 06:30 Temperature Temperature Source Pulse Rate 61 118 H 69 Pulse Rate [Left Radial] Respiratory Rate 13 14 13 Blood Pressure 109/59 L 99/65 L 97/57 L Blood Pressure [Left Arm] Blood Pressure Mean 75 74 70 Blood Pressure Mean [Left Arm] Blood Pressure Source [Left Arm] 02 Sat by Pulse Oximetry 94 L 95 95 Oxygen Delivery Method 03/02/25 07:31 Temperature 98 F Temperature Source Pulse Rate 96 H Pulse Rate [Left Radial] Respiratory Rate 20 Blood Pressure 117/62 Blood Pressure [Left Arm] Blood Pressure Mean Blood Pressure Mean [Left Arm] Blood Pressure Source [Left Arm] 02 Sat by Pulse Oximetry Oxygen Delivery Method Room Air Lab Data Lab results reviewed: Yes I reviewed the patient's lab results. Lab Results 03/02/25 03:35: WBC 13.3 H, RBC 4.24 L, Hgb 12.1 L, Hct 37.9 L, MCV 89.4, MCH 28.5, MCHC 31.9, RDW 13.1, Plt Count 180, MPV 10.7 H, Neut % (Auto) 54.7, Lymph % (Auto) 29.1, Miner % (Auto) 7.8, Eos % (Auto) 7.6, Baso % (Auto) 0.4, Neut # (Auto) 7.3, Lymph # (Auto) 3.9, Miner # (Auto) 1.0, Eos # (Auto) 1.0 H, Baso # (Auto) 0.1, D-Dimer 0.92 H, Sodium 134 L, Potassium 5.0, Chloride 105, Carbon Dioxide 24, Anion Gap 10.0, BUN 32 H, Creatinine 2.00 H, Estimated Creat Clear 34, Estimated GFR 32 L, Est GFR ( Amer) 39 L, Glucose 189 H, Calcium 9.5, Magnesium 1.6, Total Bilirubin 0.3, AST 39, ALT 29, Alkaline Phosphatase 59, Troponin I < 0.01, Total Protein 7.4, Albumin 3.3 L, Globulin 4.1 H, Albumin/Globulin Ratio 0.8 L 03/02/25 06:33: Troponin I < 0.01 03/02/25 03:35 03/02/25 03:35 Orders (Tests/Meds): ED MEDICATIONS Discontinued Medications Generic Name Dose Route Start Last Admin Trade Name Armani PRN Reason Stop Dose Admin Iopamidol 80 ml 03/02/25 04:21 03/02/25 04:29 Iopamidol-370 (76%);100ml Bottle IV 03/02/25 04:22 80 ml ONCE ONE Administration Meclizine HCl 25 mg 03/02/25 03:39 03/02/25 03:42 Meclizine 25mg Tablet PO 03/02/25 03:40 25 mg ONCE ONE Administration Sodium Chloride 50 ml 03/02/25 04:21 03/02/25 04:28 0.9 % Sodium Chloride 50 Ml Vial IV 03/02/25 04:22 50 ml ONCE ONE Administration Sodium Chloride 10 ml 03/02/25 04:21 03/02/25 04:28 Sodium Chloride 0.9% 10ml Syr (Rad Only) IV 03/02/25 04:22 10 ml ONCE ONE Administration ORDERS Category Date Time Status CT angio head Stat Cat Scan 03/02/25 03:[address] angio neck Stat Cat Scan 03/02/25 03:[address] head/brain wo con Stat Cat Scan 03/02/25 03:40 Completed CBC w/Auto Diff [Complete Blood Count Auto Diff] Stat Lab 03/02/25 03:35 Completed CMP [Comprehensive Metabolic Panel] Stat Lab 03/02/25 03:35 Completed D-Dimer Stat Lab 03/02/25 03:35 Completed Magnesium Stat Lab 03/02/25 03:35 Completed Troponin I Q3H Lab 03/02/25 03:35 Completed Troponin I Q3H Lab 03/02/25 06:33 Completed ECG Data Tracing #1: I reviewed this ECG and interpreted as documented below: A-fib, rate of 97, right bundle branch block, no obvious ischemic changes. ECG initial impression date: 03/02/25 ECG initial impression time: 03:36 HEART Score History (anamnesis): Slightly suspicious ECG: Non-specific disturbance Age: >65 years Risk factors: Atherosclerosis history Troponin: </= normal limit HEART Score: 5 Medical Decision Narrative: 79-year-old male with history of paroxysmal A-fib, coronary artery disease, CKD, obesity, hypertension presents for multiple complaints. Reports that he felt dizzy after rolling over and around 2 AM. He has had some associated chest heaviness as well. History was obtained via interactive discussion with patient, EMS, family. On arrival, patient is [afebrile, hemodynamically stable, satting appropriately, alert, oriented x4, GCS 15], moving all extremities spontaneously. Full physical exam performed and significant for no focal neurologic deficits, clear lungs bilaterally, Differential includes but is not limited to BPPV, central vertigo, peripheral vertigo, arrhythmia, ACS PE. Patient was given full dose aspirin by EMS for symptomatic management and correction of underlying abnormalities. Workup initiated including CBC CMP troponin CT head CTA head neck. On re-evaluation, patient reports some continued chest pressure. Laboratory workup independently interpreted by me and significant for negative initial troponin, mild leukocytosis, renal function improved from baseline. Imaging independently interpreted by me and significant for no evidence of intracranial bleeding. No evidence of acute large vessel occlusion, patient does have significant calcification and stenosis within the bilateral ICA.. See radiology read for full review of final results. I performed the Frederick-Hallpike maneuver and was able to reproduce patient's vertiginous symptoms. I attempted to perform the Justo maneuver but patient was unable to tolerate or maneuver properly to participate in the procedure. Werner DE GUZMAN: I assumed care of the patient at the time of handoff from the prior provider. On further reassessment, patient reports complete symptomatic resolution. He was able to ambulate back and forth to the bathroom without difficulty and without recurrence of symptoms. D-dimer negative by years criteria. Repeat troponin remains undetectably low. Given patient history, exam and workup, patient's presentation most likely represents BPPV. Discussed with patient that he did have some abnormal findings on his CT scan including moderate to severe ICA stenoses and recommended to follow-up with PCP/cardiology for further assessment. Strict return precautions given for signs or symptoms of possible stroke or [place]. Patient discharged in stable condition.. Procedures Risk/Benefits of Procedure(s) Were Explained: Yes Critical Care Critical Care Time Critical Care Time: No
--- NOTE | 2025-03-02 04:19 | PC.NURSE ---
CT called about IV leakage x2. First time, Jloop tightened to catheter and dressing changed. IV flushed w/o problem. no redness/hematoma at sight above IV. Second time RHONDA Luna went to CT scan. Iv flushed w/o issues. No Redness/hematoma at sight above IV.
--- NOTE | 2025-03-02 04:27 | PC.NURSE ---
Pt transported back to room by Radiology staff from CT
[2025-03-02] MEDS: SODIUM CHLORIDE 0.9% 10ML SYR (RAD ONLY) 10 ML IV (04:28)
[2025-03-02] MEDS: 0.9 % SODIUM CHLORIDE 50 ML VIAL IV (04:28)
[2025-03-02] MEDS: IOPAMIDOL-370 (76%);100ML BOTTLE 80 ML IV (04:29)
[2025-03-02 07:19] LABS: Troponin I < 0.01 ng/ml (0.00-0.034)
[2025-03-02 10:35] LABS: D-Dimer 0.92 ug/mL (0.0-0.5)
== END 2025-03-02 07:39 | disposition home or self-care (01) ==
PROVIDERS: Emergency Provider Emergency Medicine
DX: R07.89 Other chest pain (principal); I65.29 Occlusion and stenosis of unspecified carotid artery; H81.10 Benign paroxysmal vertigo, unspecified ear; I10 Essential (primary) hypertension
CPT/HCPCS: 70450; 70496; 70498; 80053; 83735; 84484; 85025; 85378; 93005; 99285; Q9967